=== PATIENT | female | born 1965 | race Caucasian/White ===

== ENCOUNTER 2019-12-11 14:55 | Outpatient (CLI) | payer BC, OTHER, SELFPAY ==
--- NOTE | ~2019-12-11 | XR_ITS ---
EXAMINATION:XR cervical spine min 6V DATE: 12/11/2019 15:25 INDICATION: Rheumatoid arthritis without rheumatoid factor TECHNIQUE: AP, lateral, bilateral oblique, lateral swimmers and odontoid views of the cervical spine are provided. COMPARISON: None FINDINGS: Alignment is normal. There is straightening of the cervical spine which can be positional o r due to muscular spasm. The odontoid is intact. No fracture is identified. The vertebral body height s are normal. There is mild loss of intervertebral disc space height at C5-6 and C6-7. Mild facet and uncovertebral joint osteoarthritis is noted in the mid cervical spine. Prevertebral soft tissues are normal. IMPRESSION: 1. Mild cervical spondylosis without acute findings. Reviewed, dictated and finalized at location A. RUNNER
== END 2019-12-11 14:56 | disposition home or self-care (01) ==
LOC: ANHIMG 15:04
PROVIDERS: PCP Internal Medicine; Visit Provider Internal Medicine
DX: M06.09 Rheumatoid arthritis without rheumatoid factor, multiple sites (principal); M15.9 Polyosteoarthritis, unspecified; M47.892 Other spondylosis, cervical region
CPT/HCPCS: 72052

== ENCOUNTER 2020-01-26 21:57 | Inpatient (IN) | payer BC, OTHER, SELFPAY ==
--- NOTE | ~2020-01-26 | XR_ITS ---
XR chest 2V DATE: 02/01/2020 09:47 INDICATION: Worsening chest pleuritic pain TECHNIQUE: PA and lateral views COMPARISON: 01/29/2020 portable AP chest FINDINGS: There is left lower lung predominantly left lower lobe infiltrate/atelectasis, with mild el evation of the left leaf of the diaphragm. The costophrenic angles obscured. Small pleural effusion i s not excluded. The right lung appears clear. No right pleural effusion. Heart size appears normal. There is aortic arch calcification. IMPRESSION: Infiltrate/atelectasis, left lower lung, especially lower lobe,, stable since 01/29/2020 Reviewed, dictated and finalized at location A. IMPRESSION: Infiltrate/atelectasis, left lower lung, especially lower lobe,, st able since 01/29/2020
--- NOTE | ~2020-01-26 | XR_ITS ---
EXAMINATION: XR chest 1V portable DATE: 01/29/2020 06:08 INDICATION: Cough and hypoxia. TECHNIQUE: A single frontal view of the chest was obtained. COMPARISON: Chest single view 01/26/2020, chest CT 01/27/2020 FINDINGS: There are airspace opacities at left lung base. There is a small left pleural effusion. No pneumothorax. The heart size is normal. IMPRESSION: 1. Airspace opacities at left lung base with worsening from 01/26/2020, consistent with atelectasis ve rsus pneumonia. 2. Small left pleural effusion. Reviewed, dictated and finalized at location A. IMPRESSION: 1. Airspace opacities at left lung base with worsening from 01/26/2020, consiste nt with atelectasis versus pneumonia. 2. Small left pleural effusion.
--- NOTE | ~2020-01-26 | XR_ITS ---
EXAMINATION: XR chest 1V portable DATE: 01/26/2020 22:25 INDICATION: Shortness of breath, fever and productive cough TECHNIQUE: frontal view of the chest was obtained. COMPARISON: None FINDINGS: Patchy airspace opacities in the left lower lung zone. No pleural effusion or pneumothorax. The cardi omediastinal silhouette is normal. IMPRESSION: 1. Opacities in the left lower lung zone which could represent pneumonia, asymmetric pulmonary edema or atelectasis. Reviewed, dictated and finalized at location A. IMPRESSION: 1. Opacities in the left lower lung zone which could represent pneumonia, asymm etric pulmonary edema or atelectasis.
--- NOTE | ~2020-01-26 | CT_ITS ---
EXAMINATION: CTA chest PE protocol EXAM DATE: 01/27/2020 16:48 INDICATION: Shortness of breath, cough, pneumonia. TECHNIQUE: Spiral CTA of the chest (pulmonary arteries) was performed with 100 cc Omnipaque 350 intr avenous contrast injection. Images were acquired during the pulmonary arterial phase. Coronal maxi mum intensity projection 3D-reconstructions were created by the technologist on dedicated workstation . Axial, coronal and sagittal reformatted images were reviewed. The dose-length product (DLP) for t his examination was 1006.37 mGy-cm. The exposure was tailored according to patient size (auto mA ex posure control), and iterative reconstruction (ASIR) was used as additional dose reduction technique. There is no prior study for comparison. FINDINGS: There are no pulmonary emboli in the 1st through 3rd order (central and interlobar) pulmon celina arteries. There is suboptimal pulmonary arterial opacification respiratory motion limiting evalua tion of the segmental branches. No thoracic aortic dissection. Multi segmental left lower lobe cons olidation, probably combination of atelectasis and pneumonia. There are no pleural or pericardial ef fusions. There is debris within left lower lobe intralobar and segmental bronchi. Difficult to excl ude underlying mass in the setting and follow-up exam is indicated. There is no mediastinal, hilar o r axillary lymphadenopathy. There is no pneumothorax. Heart normal in size. There is mild coron celina arterial calcification, arterial sclerosis. Incompletely imaged left renal lesion measuring flui d density. There are cholecystectomy clips. There is thoracic spondylosis without osteoblastic or os teolytic lesions identified. IMPRESSION: 1. No central pulmonary emboli. Segmental vessels not well evaluated. 2. Multisegmental left lower lobe consolidation, probably combination of atelectasis and pneumonia. Left basilar mucus plugging. One-month Follow-up CT is indicated to exclude any underlying mass. Reviewed, dictated and finalized at location A. IMPRESSION: 1. No central pulmonary emboli. Segmental vessels not well evaluated. 2. Multisegmental left lower lobe consolidation, probably combination of atele ctasis and pneumonia. Left basilar mucus plugging. One-month Follow-up CT is in dicated to exclude any underlying mass.
[2020-01-26 22:01] VITALS: BP 154/65; PULSE 106; RESP 29; TEMP 37.7; O2SAT 97
--- NOTE | 2020-01-26 22:12 | ECG_ITS ---
Measurements Intervals [place] Rate: 100 P: 41 IA: 152 QRS: 38 QRSD: 90 T: 39 QT: 329 QTc: 425 Interpretive Statements SINUS TACHYCARDIA BORDERLINE R WAVE PROGRESSION, ANTERIOR LEADS BASELINE ARTIFACT- III, AVF, V6 BORDERLINE ECG Electronically Signed On 01-27-2020 7:19:07 CDT by Jake Cassidy D.O.
--- NOTE | 2020-01-26 22:16 | ED.URI ---
HPI - URI/Sore Throat General Chief Complaint: Upper Respiratory Infection Stated Complaint: sinus infection/coughing, pulled something Time Seen by Provider: 01/26/20 22:15 Source: patient and RN notes reviewed Mode of arrival: other Limitations: no limitations History of Present Illness HPI Narrative: Pt is a 54 y/o female who presents to the ED with c/o a sinus infection that began 2 weeks ago. Pt has been prescribed 3 different abx. Pt's family states that the pt's PCP believes the pt might have pneumonia and requests a chest x-ray. Pt denies being around any sick contacts. Pt also reports coughing, left side pain with inspiration d/t coughing, wheezing, dyspnea, nausea, and vomiting, but denies fever and diarrhea. MD elicited complaint: other (sinus infection) Onset (ago): week(s) (2) Consistency: other (still present) Able to tolerate fluids by mouth: Yes Associated symptoms: cough, shortness of breath, nausea, vomiting and other (left side pain with inspiration d/t coughing, wheezing) Related Data Home Medications Medication Instructions Recorded Confirmed albuterol sulfate 90 mcg/actuation 2 inhalation INHALATION BID PRN 10/21/19 breath activated powder inhaler each azelastine 0.15 % (205.5 mcg) 1 spray NASAL BID ml 10/21/19 nasal spray cholecalciferol (vitamin D3) 4,000 4,000 unit PO DAILY 10/21/19 unit capsule cyclosporine 0.05 % eye drops 1 drop EACH EYE Q12H 10/21/19 hydrochlorothiazide 25 mg tablet 25 mg PO DAILY 10/21/19 levothyroxine 75 mcg tablet 75 mcg PO DAILY 10/21/19 losartan 50 mg tablet 50 mg PO DAILY 10/21/19 montelukast 10 mg tablet 10 mg PO DAILY 10/21/19 ranitidine HCl 150 mg tablet 150 mg PO DAILY 10/21/19 albuterol sulfate [ProAir HFA] 1 inh INHALATION QID 01/26/20 01/26/20 fluticasone propion-salmeterol INHALATION 01/26/20 [Wixela Inhub] metformin mg 01/26/20 pravastatin 01/26/20 prednisone 01/26/20 Allergies Allergy/AdvReac Type Severity Reaction Status Date / Time amitriptyline Allergy Unknown Unknown Verified 01/26/20 22:30 amoxicillin Allergy Unknown Unknown Verified 01/26/20 22:30 Sulfa (Sulfonamide Allergy Unknown Unknown Verified 01/26/20 22:30 Antibiotics) Review of Systems Review of Systems: All systems reviewed & are unremarkable except as noted in HPI and below Constitutional: Constitutional: Denies fever(s) Respiratory: Respiratory: Reports cough, Reports dyspnea and Reports wheezing Gastrointestinal: Gastrointestinal: Denies diarrhea, Reports nausea and Reports vomiting Musculoskeletal: Musculoskeletal: Reports other (left side pain with inspiration d/t coughing) PMFSH Past Medical History Medical History Generalized osteoarthritis of multiple sites Hypothyroid Neck pain without injury Rheumatoid arthritis Vitamin D deficiency Surgical History Surgical History Delivery by section H/O lateral meniscus repair of right knee H/O tubal ligation History of tonsillectomy Hx of cholecystectomy Family History Family History Father Lung cancer Thyroid cancer Carcinoma of colon Mother Brain cancer Lung cancer Colitis COPD (chronic obstructive pulmonary disease) Depression Mother Depression, Onset Age: 60 Family history of colitis, Onset Age: 60 Family history of chronic obstructive pulmonary disease, Onset Age: 60 Family history of lung cancer, Onset Age: 60 Family history of malignant neoplasm of brain, Onset Age: 60 Father Carcinoma of colon, Onset Age: 58 Family history of lung cancer, Onset Age: 58 Family history of malignant neoplasm of thyroid, Onset Age: 58 Social History Social History Smoking packs per day: 1 Smoking cigarettes per day: 20.0 Years smoked: 10 Smoking pack-
[2020-01-26 22:25] LABS: Basophils Absolute Auto 0.1 K/mm3 (0.0-0.1); Basophils Percent Auto 0.5 % (0.2-1.2); Eosinophils Percent Auto 0.2 % (0-4.4); Hematocrit 46.7 % (37.0-47.0); Hemoglobin 14.9 g/dL (12.0-15.0); Immature Granulocyte Absolute 0.08 K/mm3 (0.00-0.031); Immature Granulocyte Percent A 0.4 % (0-0.5); Lymphocytes Absolute Auto 1.57 K/mm3 (0.9-3.2); Lymphocytes Percent Auto 8.3 % (18.3-44.2); Mean Corpuscular HGB Conc 31.9 g/dl (32-36); Mean Corpuscular Hemoglobin 28.4 pg (26-34); Mean Corpuscular Volume 89.1 fl (80-100); Mean Platelet Volume 11.2 fl (7.4-10.4); Monocytes Absolute Auto 1.3 K/mm3 (0.1-0.6); Monocytes Percent Auto 7.1 % (2.6-8.5); Neutrophils Absolute Auto 15.8 K/mm3 (1.3-6.7); Neutrophils Percent Auto 83.5 % (45.5-73.1); Platelet Count Result 249 k/mm3 (150-375); Red Blood Count 5.24 M/mm3 (4.2-5.4); Red Cell Distribution Width 13.6 % (11.5-14.5); White Blood Count 18.9 K/mm3 (4.5-10.0)
[2020-01-26] MEDS: ONDANSETRON INJ 4 MG/2 ML VIAL IV PUSH (22:26)
[2020-01-26 22:37] LABS: Lactic Acid Reflex 1.6 mmol/L (0.7-2.1)
[2020-01-26 22:38] LABS: Alanine Aminotransferase 16 U/L (4-35); Albumin Level 4.4 g/dL (3.5-5.1); Alkaline Phosphatase 88 U/L (38-126); Aspartate Amino Transferase 21 U/L (14-36); Bilirubin,Total 0.7 mg/dL (0.2-1.3); Blood Urea Nitrogen 26 mg/dL (7-17); Calcium 9.4 mg/dL (8.4-10.2); Carbon Dioxide 33 mmol/L (22-30); Chloride 97 mmol/L (98-107); Estimated Glomerular Filt Rate > 60; Glucose 123 mg/dL (65-105); Lipase 155 U/L (23-300); Potassium 3.7 mmol/L (3.4-5.0); Sodium 137 mmol/L (137-145)
[2020-01-26 22:47] VITALS: BP 159/70; PULSE 104; RESP 24; O2SAT 94
[2020-01-26 22:56] LABS: Add Urine Microscopic? NO; Appearance Urine Clear (Clear); Bacteria Urine Trace /hpf; Bilirubin Urine Negative (Negative); Blood Urine Negative (Negative); Color Urine Yellow (Yellow); Glucose Urine UA Negative (Negative); Ketones Urine Negative (Negative); Leukocyte Esterase Ur Negative LEU/UL (Negative); Mucus Urine Rare /lpf; Nitrate Urine Negative (Negative); Protein Urine Negative (Negative); RBC Urine 0-2 /hpf (0-2); Specific Grav Ur 1.025 (1.001-1.035); Squamous Epithelial Cell Urine Few /hpf (Few); Urobilinogen Urine Negative mg/dL (<2.0); WBC Urine 0-3 /hpf
--- NOTE | 2020-01-26 23:22 | PC.NURSE ---
COVID 19 swab collected for IDPH testing and walked to the lab by [facility].
[2020-01-26 23:39] VITALS: BP 136/73; PULSE 102; RESP 19; O2SAT 94
[2020-01-27] VITALS (9 sets, daily range): BP systolic 96–143; BP diastolic 53–78; PULSE 80–105; RESP 18–28; TEMP 36.3–37.7; O2SAT 91–94; BMI 56.1
[2020-01-27] MEDS: METOCLOPRAMIDE HCL INJ 10 MG/2 ML VIAL IV PUSH (00:03)
--- NOTE | 2020-01-27 01:08 | ADMGEN ---
This patient, Karen Em, was admitted to 3 [facility] Surg Room 331-01. Patient/family oriented to hospital policies and general routines including ID bracelet, bed and alarms, visiting hours, pain management, procedures, bathroom and other care routines, personal items, smoking policy, room service/diet, and visiting hours. Valuables list has been completed. Information on how to activate the Rapid Response Team has been discussed. Patient/Family are encouraged to report perceived risks to care and to ask questions if they do not understand what they are told or what they should do.
[2020-01-27] MEDS: ALBUTEROL SULFATE (*SP) AEROSOL 1 PUFF 2 PUFF INHALATION ×3 (08:30→16:45)
[2020-01-27 08:56] LABS: Hemoglobin A1C 5.7 % (<5.7)
[2020-01-27] MEDS: CHOLECALCIFEROL 1,000 UNIT TABLET 4000 UNITS PO (09:00)
[2020-01-27] MEDS: PRAVASTATIN SODIUM 20 MG TABLET PO (09:01)
[2020-01-27] MEDS: LEFLUNOMIDE 20 MG TABLET PO (09:01)
[2020-01-27] MEDS: FAMOTIDINE 20 MG TABLET PO (09:01)
[2020-01-27] MEDS: HYDROXYCHLOROQUINE SULFATE 200 MG TABLET PO (09:01)
[2020-01-27] MEDS: hydroCHLOROthiazide 25 MG TABLET PO (09:01)
[2020-01-27] MEDS: LEVOTHYROXINE SODIUM 75 MCG TABLET PO (09:01)
[2020-01-27 09:21] LABS: Glucose Point of Care 117 (65-105)
[2020-01-27] MEDS: ACETAMINOPHEN 325 MG TABLET 650 MG PO ×2 (09:21→22:50)
--- NOTE | 2020-01-27 11:02 | PM.IMHP ---
H&P: HPI History of Present Illness Chief complaint: Pneumonia Narrative: Karen Em is a 54 year old female with history of morbid obesity, RA, hypothyroidism, and presumed prediabetes (A1c 5.7 this stay and takes metformin at home) who presented to the ER on evening of 01/25 from home with complaints of worsening cough and shortness of breath. She states her symptoms started with a sinus infection, cough, and shortness of breath roughly 2 weeks ago. She was placed on what she thinks is Levaquin, then Z-pack, then a medictation she was unsure of, completing these different courses without improvement. She states she is now is having left sided chest pain induced by deep inspiration and coughing; sounding pleuritic in nature. Palpating the area makes it worse. She states the Tylenol improved the pain somewhat. Her symptoms are roughly the same since presentation with little benefit from antibiotics thus far. 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 She has had no recent travel. She notes a fever last night upon presentation to the ER, but otherwise denies any recent fever/chills/sweats, muscle aches pains. She denies any previous blood clots or use of oral contraceptives. She notes n/v yesterday, but this has subsided today. Cough is green in color; non-bloody. Upon further questioning, Denies current f/c/s, rigors, myalgias/arthralgias, headaches, dizziness, lightheadedness, changes in v/h, palpitations, current n/v/d/c, abd pain, changes in BMs, dysuria, hematuria, cloudy urine, calf pain/swelling, signs symptoms of stroke. While in the ER CXR demonstrated Opacities in the left lower lung zone which could represent pneumonia, asymmetric pulmonary edema or atelectasis. She also demonstrated leukocytosis with WBC at 18.9k, RR of 29, HR of 106, temp of 99.9, BP of 123/52. Patient met sepsis with leukocytosis, tachypnea, and tachycardia with pneumonia suspected source of infection and is being admitted under this setting. Review of Systems Review of Systems: All systems reviewed & are unremarkable except as noted in HPI and below PMFSH Past Medical History Medical History (Updated 01/27/20 @ 11:48 by Jefferson Huizar PA-C) Asthma Generalized osteoarthritis of multiple sites Hypothyroid Neck pain without injury Prediabetes Rheumatoid arthritis Vitamin D deficiency Surgical History Surgical History Delivery by section H/O lateral meniscus repair of right knee H/O tubal ligation History of hysterectomy History of tonsillectomy Hx of cholecystectomy Family History Family History Father Lung cancer Thyroid cancer Carcinoma of colon Mother Brain cancer Lung cancer Colitis COPD (chronic obstructive pulmonary disease) Depression Mother Depression, Onset Age: 60 Family history of colitis, Onset Age: 60 Family history of chronic obstructive pulmonary disease, Onset Age: 60 Family history of lung cancer, Onset Age: 60 Family history of malignant neoplasm of brain, Onset Age: 60 Father Carcinoma of colon, Onset Age: 58 Family history of lung cancer, Onset Age: 58 Family history of malignant neoplasm of thyroid, Onset Age: 58 Social History Social History (Updated 01/27/20 @ 11:32 by Jefferson Huizar PA-C) Social History: Patient lives at home with her , son and daughter in law. 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 She wishes to be a [employer]. She lists her as her surrogate MDM Smoking packs per day: 1 Smoking cigarettes per day: 20.0 Years smoked: 10 Smoking pack-years: 10.00 Smoking status: Former smoker Tobacco type: cigarett
[2020-01-27] MEDS: SODIUM CHLORIDE 0.9% IV 1,000 ML 125 ML IV CONT (13:00)
[2020-01-27] MEDS: ENOXAPARIN 40 MG/0.4 ML SYRINGE SUB-Q (13:00)
[2020-01-27 13:05] LABS: Glucose Point of Care 106 (65-105)
[2020-01-27 13:23] LABS: Basophils Absolute Auto 0.1 K/mm3 (0.0-0.1); Basophils Percent Auto 0.5 % (0.2-1.2); Hemoglobin 13.6 g/dL (12.0-15.0); Immature Granulocyte Absolute 0.13 K/mm3 (0.00-0.031); Immature Granulocyte Percent A 0.5 % (0-0.5); Lymphocytes Absolute Auto 1.44 K/mm3 (0.9-3.2); Lymphocytes Percent Auto 6.1 % (18.3-44.2); Mean Corpuscular HGB Conc 31.6 g/dl (32-36); Mean Corpuscular Hemoglobin 28.3 pg (26-34); Mean Corpuscular Volume 89.4 fl (80-100); Mean Platelet Volume 10.8 fl (7.4-10.4); Monocytes Absolute Auto 1.6 K/mm3 (0.1-0.6); Monocytes Percent Auto 6.9 % (2.6-8.5); Neutrophils Absolute Auto 20.3 K/mm3 (1.3-6.7); Platelet Count Result 202 k/mm3 (150-375); Red Blood Count 4.81 M/mm3 (4.2-5.4); Red Cell Distribution Width 14.1 % (11.5-14.5); White Blood Count 23.7 K/mm3 (4.5-10.0)
[2020-01-27 13:36] LABS: Alanine Aminotransferase 18 U/L (4-35); Alkaline Phosphatase 84 U/L (38-126); Aspartate Amino Transferase 20 U/L (14-36); Bilirubin,Total 1.4 mg/dL (0.2-1.3); Blood Urea Nitrogen 21 mg/dL (7-17); Calcium 9.1 mg/dL (8.4-10.2); Carbon Dioxide 35 mmol/L (22-30); Chloride 97 mmol/L (98-107); Estimated CRCL calculation 86 ml/min; Estimated Glomerular Filt Rate > 60; Glucose 112 mg/dL (65-105); Potassium 3.2 mmol/L (3.4-5.0); Sodium 135 mmol/L (137-145)
--- NOTE | 2020-01-27 13:40 | PC.NURSE ---
Jefferson Huizar notified of repeat cbc results including elevated WBC.
[2020-01-27] MEDS: POTASSIUM CHLORIDE 20 MEQ TABLET 40 MEQ PO (22:00)
[2020-01-27] MEDS: SODIUM CHLORIDE 0.9% IV 1,000 ML 100 ML IV CONT (22:00)
[2020-01-27 22:08] LABS: Glucose Point of Care 98 (65-105)
[2020-01-27 23:56] LABS: Glucose Point of Care 110 (65-105)
[2020-01-28] VITALS (9 sets, daily range): BP systolic 112–145; BP diastolic 60–82; PULSE 77–99; RESP 18–22; TEMP 36.6–37.4; O2SAT 92–95
[2020-01-28 05:46] LABS: Basophils Absolute Auto 0.1 K/mm3 (0.0-0.1); Basophils Percent Auto 0.4 % (0.2-1.2); Eosinophils Absolute Auto 0.1 K/mm3 (0-0.3); Eosinophils Percent Auto 0.6 % (0-4.4); Hematocrit 40.5 % (37.0-47.0); Hemoglobin 12.8 g/dL (12.0-15.0); Immature Granulocyte Absolute 0.12 K/mm3 (0.00-0.031); Immature Granulocyte Percent A 0.6 % (0-0.5); Lymphocytes Absolute Auto 0.94 K/mm3 (0.9-3.2); Mean Corpuscular HGB Conc 31.6 g/dl (32-36); Mean Corpuscular Hemoglobin 28.4 pg (26-34); Mean Platelet Volume 10.8 fl (7.4-10.4); Monocytes Absolute Auto 1.3 K/mm3 (0.1-0.6); Neutrophils Absolute Auto 16.1 K/mm3 (1.3-6.7); Neutrophils Percent Auto 86.4 % (45.5-73.1); Platelet Count Result 167 k/mm3 (150-375); White Blood Count 18.6 K/mm3 (4.5-10.0)
[2020-01-28 06:17] LABS: Blood Urea Nitrogen 13 mg/dL (7-17); Calcium 8.8 mg/dL (8.4-10.2); Carbon Dioxide 30 mmol/L (22-30); Chloride 101 mmol/L (98-107); Estimated CRCL calculation 109 ml/min; Estimated Glomerular Filt Rate > 60; Glucose 114 mg/dL (65-105); Magnesium 2.2 mg/dL (1.6-2.3); Potassium 3.6 mmol/L (3.4-5.0); Sodium 133 mmol/L (137-145)
[2020-01-28] MEDS: ACETAMINOPHEN 325 MG TABLET 650 MG PO ×3 (06:50→20:55)
[2020-01-28] MEDS: LEVOTHYROXINE SODIUM 75 MCG TABLET PO (06:51)
[2020-01-28 07:22] LABS: Thyroid Stimulating Hormone Reflex 0.718 uIU/mL (0.465-4.68)
[2020-01-28] MEDS: ALBUTEROL SULFATE (*SP) AEROSOL 1 PUFF 2 PUFF INHALATION ×3 (09:05→20:38)
[2020-01-28] MEDS: ENOXAPARIN 40 MG/0.4 ML SYRINGE SUB-Q (09:11)
[2020-01-28] MEDS: SODIUM CHLORIDE 0.9% IV 1,000 ML 100 ML IV CONT (09:18)
[2020-01-28 09:27] LABS: Glucose Point of Care 116 (65-105)
[2020-01-28] MEDS: PRAVASTATIN SODIUM 20 MG TABLET PO (10:31)
[2020-01-28] MEDS: HYDROXYCHLOROQUINE SULFATE 200 MG TABLET PO (10:31)
[2020-01-28] MEDS: hydroCHLOROthiazide 25 MG TABLET PO (10:31)
[2020-01-28] MEDS: FAMOTIDINE 20 MG TABLET PO (10:32)
[2020-01-28] MEDS: CHOLECALCIFEROL 1,000 UNIT TABLET 4000 UNITS PO (10:32)
--- NOTE | 2020-01-28 13:18 | PM.IMPN ---
Progress Note: A&P Assessment and Plan (1) Pneumonia: Qualifiers: Laterality: unspecified laterality Lung location: lower lobe of lung Pneumonia type: due to unspecified organism Qualified Code(s): J18.9 - Pneumonia, unspecified organism Code(s): J18.9 - Pneumonia, unspecified organism Status: Acute Assessment and Plan: -----Possibly bacterial vs viral. Sputum culture reviewed, findings consistent with normal ghazala of the respiratory tract. Patient on 3 different antibiotic courses prior to arrival, suspicious of viral etiology. Patient tested for COVID19 and is pending so far. CTA reviewed and shows multi segmental left lower lobe consolidation and mucus plugging. Will need repeat CT in 1 month Patient started on IV azithromycin and IV rocephin from the ER; will continue this. Patient allergic to amoxicillin, although had rocephin in the ER without reaction. Monitor this closely Continue symptomatic treatment with Tylenol PRN, Mucinex Q12, PEP therapy, IVF Continue home asthma medications Avoid nebulizer treatments due to possible COVID19 (2) Sepsis: Code(s): A41.9 - Sepsis, unspecified organism Status: Acute Assessment and Plan: -----initially With leukocytosis, tachypnea, tachycardia with pneumonia as source. Tachycardia and tachypnea improved. Lactic acid within normal limits. White blood cell count improving. Will stop IV fluids at this time (3) Rheumatoid arthritis: Code(s): M06.9 - Rheumatoid arthritis, unspecified Status: Acute Assessment and Plan: No acute issues at this moment. Will hold leflunomide. Will watch Qtc (4) Hypothyroid: Code(s): E03.9 - Hypothyroidism, unspecified Status: Acute Assessment and Plan: ------TSH normal. Continue levothyroxine. (5) Prediabetes: Code(s): R73.03 - Prediabetes Status: Acute Assessment and Plan: ------A1c 5.7; on metformin at home Will hold metformin for now Accuchecks ACHS, hypoglycemia protocol, correctional insulin, diabetic diet Monitor (6) Asthma: Code(s): J45.909 - Unspecified asthma, uncomplicated Status: Acute Assessment and Plan: -------Doing okay today with no hypoxia. avoid nebulizer treatments with suspected COVID19 Time Spent With Patient Time with patient: 25 - 35 minutes Subjective Date/time seen: 01/28/20 13:18 Interval history: Pt is a 54 y/o female here for pneumonia. Patient was seen today and says she is still coughing and having a lot of sputum production. She has not had any fevers or chills since yesterday and is doing better than yesterday. She has had no shortness of breath when walking and only feels short of breath when she coughs. She does have left-sided chest pain when she coughs that is reproducible. She had a bowel movement today. She is eating and drinking okay and tolerating a diet. Review of Systems Review of Systems: All systems reviewed & are unremarkable except as noted in HPI and below Exam Narrative: Exam Narrative: General: Well developed well nourished patient resting in bed in NAD HEENT: normocephalic Neck: supple Neuro: Alert and oriented x4 CV:RRR on exam today. Resp: Significant cough and sputum production on exam. Able to speak in full sentences without conversational dyspnea. No retractions. Right lung with rhonchi. Of note, a disposable stethoscope was used which lowers sensitivity. Abd: Soft, non distended. No pain to palpation. Positive bowel sounds Extremities: No swelling, erythema, or pain to palpation. Objective Data Vital Signs Vital Signs: Vital Signs - 24 hr 01/27/20 14:00 01/27/20 16:00 01/27/20 20:00 Temperature 98.9 F 97.3 F L Pulse Rate 89 80 97 Respiratory Rate 20 22 H Blood Pressure 127/78 143/75 H Pulse Oximetry 93 91 01/28/20 00:00 01/28/20 04:00 01/28/20 06:00 Temperature 98.1 F 97.8 F Pulse Rate 8
[2020-01-28 13:35] LABS: Glucose Point of Care 88 (65-105)
[2020-01-28 17:50] LABS: Glucose Point of Care 106 (65-105)
[2020-01-28 21:16] LABS: Glucose Point of Care 111 (65-105)
[2020-01-29] VITALS (12 sets, daily range): BP systolic 109–139; BP diastolic 47–71; PULSE 64–95; RESP 16–20; TEMP 36.3–37.7; O2SAT 93–100
[2020-01-29] MEDS: ACETAMINOPHEN 325 MG TABLET 650 MG PO ×2 (02:19→08:20)
[2020-01-29 02:35] LABS: Pneumococcal Antigen Urine Not Detected (Not Detected)
[2020-01-29] MEDS: LEVOTHYROXINE SODIUM 75 MCG TABLET PO (05:44)
[2020-01-29 06:27] LABS: Albumin Level 3.5 g/dL (3.5-5.1); Bilirubin,Total 1.2 mg/dL (0.2-1.3); Carbon Dioxide 28 mmol/L (22-30); Estimated CRCL calculation 109 ml/min; Estimated Glomerular Filt Rate > 60
[2020-01-29 07:06] LABS: Alanine Aminotransferase 21 U/L (4-35); Aspartate Amino Transferase 22 U/L (14-36); Blood Urea Nitrogen 11 mg/dL (7-17); Calcium 8.7 mg/dL (8.4-10.2); Chloride 100 mmol/L (98-107); Glucose 104 mg/dL (65-105); Lactate Dehydrogenase 430 U/L (313-618); Potassium 3.3 mmol/L (3.4-5.0); Sodium 134 mmol/L (137-145)
[2020-01-29 07:37] LABS: CRP 34.1 mg/dL (<1.0)
[2020-01-29 07:59] LABS: Alkaline Phosphatase 126 U/L (38-126)
--- NOTE | 2020-01-29 08:00 | ECG_ITS ---
Measurements Intervals [place] Rate: 77 P: 8 MN: 162 QRS: 15 QRSD: 94 T: 29 QT: 384 QTc: 436 Interpretive Statements SINUS RHYTHM WITH SINUS ARRHYTHMIA BORDERLINE R WAVE PROGRESSION, ANTERIOR LEADS BORDERLINE ECG Electronically Signed On 01-29-2020 9:56:18 CDT by Jake Cassidy D.O.
[2020-01-29] MEDS: ENOXAPARIN 40 MG/0.4 ML SYRINGE SUB-Q (08:08)
[2020-01-29] MEDS: FAMOTIDINE 20 MG TABLET PO (08:08)
[2020-01-29] MEDS: CHOLECALCIFEROL 1,000 UNIT TABLET 4000 UNITS PO (08:08)
[2020-01-29] MEDS: HYDROXYCHLOROQUINE SULFATE 200 MG TABLET PO (08:09)
[2020-01-29] MEDS: hydroCHLOROthiazide 25 MG TABLET PO (08:09)
[2020-01-29] MEDS: PRAVASTATIN SODIUM 20 MG TABLET PO (08:10)
[2020-01-29 09:19] LABS: Hematocrit 39.1 % (37.0-47.0); Hemoglobin 12.2 g/dL (12.0-15.0); Mean Corpuscular HGB Conc 31.2 g/dl (32-36); Mean Corpuscular Hemoglobin 28.2 pg (26-34); Mean Corpuscular Volume 90.5 fl (80-100); Mean Platelet Volume 11.3 fl (7.4-10.4); Platelet Count Result 181 k/mm3 (150-375); Red Blood Count 4.32 M/mm3 (4.2-5.4); White Blood Count 12.1 K/mm3 (4.5-10.0)
--- NOTE | 2020-01-29 09:41 | PC.NURSE ---
Siena Gaines here to see patient, reviewed labs and am CXR results. Received notification from Rebecca Tanner that COVID 19 testing reflected negative results - new orders received and isolation dced.
[2020-01-29] MEDS: ALBUTEROL SULFATE (*SP) AEROSOL 1 PUFF 2 PUFF INHALATION ×4 (09:45→20:21)
[2020-01-29 09:48] LABS: Glucose Point of Care 94 (65-105)
--- NOTE | 2020-01-29 10:20 | PM.IMPN ---
Progress Note: A&P Assessment and Plan (1) Pneumonia: Qualifiers: Laterality: unspecified laterality Lung location: lower lobe of lung Pneumonia type: due to unspecified organism Qualified Code(s): J18.9 - Pneumonia, unspecified organism Code(s): J18.9 - Pneumonia, unspecified organism Status: Acute Assessment and Plan: -----patient's sputum culture is growing Staph aureus and her symptoms and chest x-ray seemed to be worsening. I will add vancomycin at this time and continue ceftriaxone and azithromycin. Her COVID-19 swab is negative and she has been afebrile but has been taking Tylenol pretty consistently. She is immunosuppressed which makes her severity of infection worse. Her immunosuppressants have been held but will continue Plaquenil. At this time with her pleuritic pain and her tight breath sounds, I am going to initiate Solu-Medrol. I have also added Symbicort since she is unable to take her home maintenance inhaler. Continue albuterol and Mucinex. CTA reviewed and shows multi segmental left lower lobe consolidation and mucus plugging. Will need repeat CT in 1 month (2) Sepsis: Code(s): A41.9 - Sepsis, unspecified organism Status: Acute Assessment and Plan: -----initially With leukocytosis, tachypnea, tachycardia with pneumonia as source. Tachycardia and tachypnea improved. Lactic acid within normal limits. White blood cell count improving. (3) Rheumatoid arthritis: Code(s): M06.9 - Rheumatoid arthritis, unspecified Status: Acute Assessment and Plan: -----No acute issues at this moment. Will hold leflunomide. (4) Hypothyroid: Code(s): E03.9 - Hypothyroidism, unspecified Status: Acute Assessment and Plan: ------TSH normal. Continue levothyroxine. (5) Prediabetes: Code(s): R73.03 - Prediabetes Status: Acute Assessment and Plan: ------A1c 5.7; on metformin at home Will hold metformin for now Accuchecks ACHS, hypoglycemia protocol, correctional insulin, diabetic diet Monitor (6) Asthma: Code(s): J45.909 - Unspecified asthma, uncomplicated Status: Acute Assessment and Plan: -------see above for plan. Steroids started (7) SVT (supraventricular tachycardia): Code(s): I47.1 - Supraventricular tachycardia Status: Acute Assessment and Plan: -----very short burst and asymptomatic. Likely d/t lung disease. Will monitor on tele. Electrolytes have been okay. Potassium ordered for today. Subjective Date/time seen: 01/29/20 10:20 Interval history: Pt is a 54 y/o female here for pneumonia. Patient was seen today and is not doing well. She says she has brief shortness of breath attacks that come on randomly. She said this is not associated with walking but is sometimes associated with coughing. She still has the left-sided chest pain when she coughs or breathes deeply. She is not taking very deep breaths. She says the inhalers help her but makes her cough more. She says she has pain all over when the Tylenol wears off. She denies fevers or chills at this time or in the last 24 hours. Patient had no symptoms of pain or palpitations at 2:00 a.m. with her SVT on telemetry. Exam Narrative: Exam Narrative: General: Well developed well nourished patient resting in bed in NAD HEENT: normocephalic Neck: supple Neuro: Alert and oriented x4 CV:RRR on exam today. Telemetry shows a small segment of SVT at 2:00 a.m. this morning. No other significant alarm reviews Resp: Inspiratory crackles in both lungs but does not take deep breaths. When she does take deep breaths this causes significant cough. Patient able to speak without conversational dyspnea. No retractions Abd: Soft, non distended. No pain to palpation. Positive bowel sounds Extremities: No swelling, erythema, or pain to palpation. Objective Data Vital Signs Vital Signs: V
[2020-01-29] MEDS: POTASSIUM CHLORIDE 20 MEQ TABLET 40 MEQ PO (12:28)
[2020-01-29 12:58] LABS: Glucose Point of Care 84 (65-105)
[2020-01-29] MEDS: methylPREDNISolone SOD SUCC 40 MG VIAL IV PUSH ×2 (15:16→20:36)
[2020-01-29 16:38] LABS: Legionella pneumophila Ag Ur Not Detected (Not Detected)
[2020-01-29 17:55] LABS: Glucose Point of Care 122 (65-105)
[2020-01-29 21:47] LABS: Glucose Point of Care 202 (65-105)
[2020-01-30] VITALS (7 sets, daily range): BP systolic 122–145; BP diastolic 58–73; PULSE 67–77; RESP 18–20; TEMP 36.3–36.5; O2SAT 94–95
[2020-01-30] MEDS: LEVOTHYROXINE SODIUM 75 MCG TABLET PO (05:41)
[2020-01-30] MEDS: methylPREDNISolone SOD SUCC 40 MG VIAL IV PUSH ×2 (05:41→16:56)
[2020-01-30 06:08] LABS: Hematocrit 39.4 % (37.0-47.0); Hemoglobin 12.6 g/dL (12.0-15.0); Mean Corpuscular Hemoglobin 28.1 pg (26-34); Mean Corpuscular Volume 87.9 fl (80-100); Mean Platelet Volume 10.9 fl (7.4-10.4); Platelet Count Result 224 k/mm3 (150-375); Red Blood Count 4.48 M/mm3 (4.2-5.4); Red Cell Distribution Width 13.4 % (11.5-14.5); White Blood Count 9.7 K/mm3 (4.5-10.0)
[2020-01-30 06:20] LABS: Blood Urea Nitrogen 13 mg/dL (7-17); Calcium 8.8 mg/dL (8.4-10.2); Carbon Dioxide 28 mmol/L (22-30); Chloride 99 mmol/L (98-107); Estimated CRCL calculation 125 ml/min; Estimated Glomerular Filt Rate > 60; Glucose 149 mg/dL (65-105); Magnesium 2.4 mg/dL (1.6-2.3); Phosphorus 4.4 mg/dL (2.5-4.5); Potassium 3.5 mmol/L (3.4-5.0); Sodium 136 mmol/L (137-145)
[2020-01-30] MEDS: CHOLECALCIFEROL 1,000 UNIT TABLET 4000 UNITS PO (08:15)
[2020-01-30] MEDS: hydroCHLOROthiazide 25 MG TABLET PO (08:15)
[2020-01-30] MEDS: HYDROXYCHLOROQUINE SULFATE 200 MG TABLET PO (08:15)
[2020-01-30] MEDS: ENOXAPARIN 40 MG/0.4 ML SYRINGE SUB-Q (08:15)
[2020-01-30] MEDS: PRAVASTATIN SODIUM 20 MG TABLET PO (08:15)
[2020-01-30] MEDS: FAMOTIDINE 20 MG TABLET PO (08:15)
[2020-01-30] MEDS: ALBUTEROL SULFATE (*SP) AEROSOL 1 PUFF 2 PUFF INHALATION ×5 (08:29→20:41)
[2020-01-30 09:57] LABS: Glucose Point of Care 138 (65-105)
[2020-01-30 12:16] LABS: Glucose Point of Care 119 (65-105)
[2020-01-30] MEDS: ACETAMINOPHEN 325 MG TABLET 650 MG PO (16:56)
--- NOTE | 2020-01-30 17:31 | PM.IMPN ---
Progress Note: A&P Assessment and Plan (1) Pneumonia: Qualifiers: Laterality: unspecified laterality Lung location: lower lobe of lung Pneumonia type: due to unspecified organism Qualified Code(s): J18.9 - Pneumonia, unspecified organism Code(s): J18.9 - Pneumonia, unspecified organism Status: Acute Assessment and Plan: -----patient's sputum culture is growing Staph aureus and her symptoms and chest x-ray seemed to be worsening. It is sensitive to vancomycin and penicillins. She has a penicillin allergy which causes a rash. Her symptoms and white count has improved with her ceftriaxone and vanc was added yesterday as well. Will continue with both of these medications but likely discharge on cefdinir. Her COVID-19 swab is negative and she has been afebrile but has been taking Tylenol pretty consistently. She is immunosuppressed which makes her severity of infection worse. Her immunosuppressants have been held but will continue Plaquenil. She was given IV steroids yesterday since she sounded very tight but today she is better so these will be stopped. I have also added Symbicort since she is unable to take her home maintenance inhaler. Continue albuterol and Mucinex. CTA reviewed and shows multi segmental left lower lobe consolidation and mucus plugging. Will need repeat CT in 1 month (2) Sepsis: Code(s): A41.9 - Sepsis, unspecified organism Status: Acute Assessment and Plan: -----initially With leukocytosis, tachypnea, tachycardia with pneumonia as source. Tachycardia and tachypnea improved. Lactic acid within normal limits. White blood cell count improving. (3) Rheumatoid arthritis: Code(s): M06.9 - Rheumatoid arthritis, unspecified Status: Acute Assessment and Plan: -----No acute issues at this moment. Will hold leflunomide. (4) Hypothyroid: Code(s): E03.9 - Hypothyroidism, unspecified Status: Acute Assessment and Plan: ------TSH normal. Continue levothyroxine. (5) Prediabetes: Code(s): R73.03 - Prediabetes Status: Acute Assessment and Plan: ------A1c 5.7; on metformin at home Will hold metformin for now Accuchecks ACHS, hypoglycemia protocol, correctional insulin, diabetic diet Monitor (6) Asthma: Code(s): J45.909 - Unspecified asthma, uncomplicated Status: Acute Assessment and Plan: -------see above for plan. Steroids started (7) SVT (supraventricular tachycardia): Code(s): I47.1 - Supraventricular tachycardia Status: Acute Assessment and Plan: -----very short burst and asymptomatic an with no recurrence. Likely d/t lung disease. Electrolytes are within normal limits. Subjective Date/time seen: 01/30/20 17:31 Interval history: Pt is a 54 y/o female here for pneumonia. Patient was seen today and is doing better today than she did yesterday. She says she is coughing but not as often and not getting up any sputum. She still has left-sided chest pain when she coughs but the pain medicine does help improve that. She says that her shortness of breath is better and she used to not be able to speak at all without being short of breath and now she only has dyspnea when she has long talks on the phone. She has not really been able to take big breaths but has been trying to use her spirometer. She has not had any fevers or chills today which is an improvement. She denies chest pain, nausea, vomiting, diarrhea but does admit to some constipation. Exam Narrative: Exam Narrative: General: Well developed well nourished patient resting in in the chair in no acute distress HEENT: normocephalic Neck: supple Neuro: Alert and oriented x4 CV:RRR on exam today. Telemetry shows no alarm reviews Resp: Significant cough on exam. Rhonchi/crackles in the left lung. patient able to speak without conversational dyspnea. No retractions Abd: Soft,
[2020-01-30 17:44] LABS: Glucose Point of Care 135 (65-105)
[2020-01-30 22:26] LABS: Glucose Point of Care 183 (65-105)
[2020-01-30 22:54] LABS: Vancomycin Trough 12.5 ug/mL (10.0-20.0)
[2020-01-31 05:59] LABS: Blood Urea Nitrogen 18 mg/dL (7-17); Calcium 8.6 mg/dL (8.4-10.2); Carbon Dioxide 30 mmol/L (22-30); Chloride 100 mmol/L (98-107); Estimated CRCL calculation 125 ml/min; Estimated Glomerular Filt Rate > 60; Glucose 130 mg/dL (65-105); Potassium 3.4 mmol/L (3.4-5.0); Sodium 136 mmol/L (137-145)
[2020-01-31 06:00] VITALS: BP 140/70; PULSE 62; RESP 20; TEMP 36.3; O2SAT 95
[2020-01-31 06:05] LABS: Hematocrit 38.2 % (37.0-47.0); Hemoglobin 12.4 g/dL (12.0-15.0); Mean Corpuscular HGB Conc 32.5 g/dl (32-36); Mean Corpuscular Hemoglobin 28.7 pg (26-34); Mean Corpuscular Volume 88.4 fl (80-100); Mean Platelet Volume 11.2 fl (7.4-10.4); Platelet Count Result 263 k/mm3 (150-375); Red Blood Count 4.32 M/mm3 (4.2-5.4); Red Cell Distribution Width 13.4 % (11.5-14.5); White Blood Count 12.9 K/mm3 (4.5-10.0)
[2020-01-31] MEDS: LEVOTHYROXINE SODIUM 75 MCG TABLET PO (06:07)
[2020-01-31 07:50] LABS: Glucose Point of Care 108 (65-105)
[2020-01-31] MEDS: CHOLECALCIFEROL 1,000 UNIT TABLET 4000 UNITS PO (08:39)
[2020-01-31] MEDS: PRAVASTATIN SODIUM 20 MG TABLET PO (08:40)
[2020-01-31] MEDS: HYDROXYCHLOROQUINE SULFATE 200 MG TABLET PO (08:40)
[2020-01-31] MEDS: ENOXAPARIN 40 MG/0.4 ML SYRINGE SUB-Q (08:40)
[2020-01-31] MEDS: hydroCHLOROthiazide 25 MG TABLET PO (08:40)
[2020-01-31] MEDS: FAMOTIDINE 20 MG TABLET PO (08:40)
[2020-01-31] MEDS: polyethylene glycoL 3350 17 GM POWD.PACK PO (08:41)
[2020-01-31] MEDS: ALBUTEROL SULFATE (*SP) AEROSOL 1 PUFF 2 PUFF INHALATION ×4 (09:15→20:51)
[2020-01-31] MEDS: ACETAMINOPHEN 325 MG TABLET 650 MG PO ×2 (10:20→17:01)
--- NOTE | 2020-01-31 10:54 | PM.IMPN ---
Progress Note: A&P Assessment and Plan (1) Pneumonia: Qualifiers: Laterality: unspecified laterality Lung location: lower lobe of lung Pneumonia type: due to unspecified organism Qualified Code(s): J18.9 - Pneumonia, unspecified organism Code(s): J18.9 - Pneumonia, unspecified organism Status: Acute Assessment and Plan: -----patient's sputum culture is growing Staph aureus and is currently on vancomycin, ceftriaxone and azithromycin. We will continue with this. It is sensitive to vancomycin and penicillins. She has a penicillin allergy which causes a rash. Her symptoms and white count has improved when she was on ceftriaxone so when she is ready for discharge she will likely be discharged on cefdinir. Her COVID-19 swab is negative and she has been afebrile. She is immunosuppressed which makes her severity of infection worse. Her immunosuppressants have been held but will continue Plaquenil. Her IV steroids were stopped yesterday since she is immunocompromised and was doing better. This may be why she feels a tad worse today but we will see how she does tomorrow. Continue Symbicort, albuterol and Mucinex. CTA reviewed and shows multi segmental left lower lobe consolidation and mucus plugging. Will need repeat CT in 1 month (2) Sepsis: Code(s): A41.9 - Sepsis, unspecified organism Status: Acute Assessment and Plan: -----initially With leukocytosis, tachypnea, tachycardia with pneumonia as source. Tachycardia and tachypnea improved. Lactic acid within normal limits. (3) Rheumatoid arthritis: Code(s): M06.9 - Rheumatoid arthritis, unspecified Status: Acute Assessment and Plan: -----No acute issues at this moment. Will hold leflunomide. (4) Hypothyroid: Code(s): E03.9 - Hypothyroidism, unspecified Status: Acute Assessment and Plan: ------TSH normal. Continue levothyroxine. (5) Prediabetes: Code(s): R73.03 - Prediabetes Status: Acute Assessment and Plan: ------A1c 5.7; on metformin at home Will hold metformin for now Accuchecks ACHS, hypoglycemia protocol, correctional insulin, diabetic diet Monitor (6) Asthma: Code(s): J45.909 - Unspecified asthma, uncomplicated Status: Acute Assessment and Plan: -------see above for plan. Steroids started (7) SVT (supraventricular tachycardia): Code(s): I47.1 - Supraventricular tachycardia Status: Acute Assessment and Plan: -----very short burst and asymptomatic an with no recurrence. Likely d/t lung disease. Electrolytes are within normal limits. Telemetry has been discontinued Subjective Date/time seen: 01/31/20 10:54 Interval history: Pt is a 54 y/o female here for pneumonia. Patient was seen today and states she is still doing better than admission but probably a little worse than yesterday. She says that she is coughing a lot and feels out of breath when she speaks in long sentences. She feels a little run down. She has not had a bowel movement yet but did take the MiraLax today. She denies chest pain, abdominal pain, leg swelling, nausea, vomiting, fevers or chills. She said she was very hot last night and cold this morning. Exam Narrative: Exam Narrative: General: Well developed well nourished patient resting in in the chair in no acute distress HEENT: normocephalic Neck: supple Neuro: Alert and oriented x4 CV:RRR on exam today. Resp: Significant cough on exam. Mild rhonchi and wheeze in the left lung but overall pretty good breath sounds. Able to speak in full sentences without conversational dyspnea Abd: Soft, non distended. No pain to palpation. Positive bowel sounds Extremities: No swelling, erythema, or pain to palpation. Objective Data Vital Signs Vital Signs: Vital Signs - 24 hr 01/30/20 14:00 01/30/20 20:45 01/30/20 22:00 Temperature 97.3 F L 97.3 F L Pulse
[2020-01-31 12:34] LABS: Glucose Point of Care 106 (65-105)
[2020-01-31 14:38] VITALS: BP 159/64; PULSE 97; RESP 18; TEMP 36.6; O2SAT 96
[2020-01-31 17:46] LABS: Glucose Point of Care 85 (65-105)
[2020-01-31 20:00] VITALS: PULSE 97; RESP 18; O2SAT 96
--- NOTE | 2020-01-31 21:33 | ECG_ITS ---
Measurements Intervals [place] Rate: 68 P: 24 ID: 151 QRS: 14 QRSD: 96 T: 29 QT: 422 QTc: 452 Interpretive Statements SINUS RHYTHM BORDERLINE R WAVE PROGRESSION, ANTERIOR LEADS BORDERLINE ECG Electronically Signed On 02-01-2020 8:01:03 CDT by Jake Cassidy D.O.
[2020-01-31 22:00] VITALS: BP 105/49; PULSE 72; RESP 20; TEMP 36.4; O2SAT 96
[2020-01-31 22:35] LABS: Troponin I < 0.012 ng/mL (0.000-0.034)
[2020-02-01] VITALS (12 sets, daily range): BP systolic 118–144; BP diastolic 51–67; PULSE 64–84; RESP 18–22; TEMP 36.3–36.9; O2SAT 94–98
--- NOTE | 2020-02-01 01:14 | PC.NURSE ---
notified of pt's cont'd c/o left sided chest pain. states that she will enter new orders.
[2020-02-01] MEDS: KETOROLAC 30 MG/ML VIAL (*BKC) IV PUSH ×3 (01:26→21:32)
[2020-02-01 06:03] LABS: Glucose Point of Care 117 (65-105)
[2020-02-01] MEDS: LEVOTHYROXINE SODIUM 75 MCG TABLET PO (06:22)
[2020-02-01 06:29] LABS: Hemoglobin 12.3 g/dL (12.0-15.0); Mean Corpuscular HGB Conc 31.5 g/dl (32-36); Mean Corpuscular Hemoglobin 28.2 pg (26-34); Mean Corpuscular Volume 89.4 fl (80-100); Mean Platelet Volume 10.4 fl (7.4-10.4); Platelet Count Result 211 k/mm3 (150-375); Red Blood Count 4.36 M/mm3 (4.2-5.4); Red Cell Distribution Width 13.7 % (11.5-14.5); White Blood Count 8.2 K/mm3 (4.5-10.0)
[2020-02-01 07:49] LABS: Blood Urea Nitrogen 22 mg/dL (7-17); CRP 4.9 mg/dL (<1.0); Carbon Dioxide 29 mmol/L (22-30); Chloride 99 mmol/L (98-107); Estimated CRCL calculation 109 ml/min; Estimated Glomerular Filt Rate > 60; Glucose 83 mg/dL (65-105); Potassium 3.1 mmol/L (3.4-5.0); Sodium 134 mmol/L (137-145)
[2020-02-01 08:39] LABS: Glucose Point of Care 77 (65-105)
[2020-02-01] MEDS: ALBUTEROL SULFATE (*SP) AEROSOL 1 PUFF 2 PUFF INHALATION (08:46)
[2020-02-01] MEDS: FAMOTIDINE 20 MG TABLET PO (09:07)
[2020-02-01] MEDS: HYDROXYCHLOROQUINE SULFATE 200 MG TABLET PO (09:07)
[2020-02-01] MEDS: PRAVASTATIN SODIUM 20 MG TABLET PO (09:07)
[2020-02-01] MEDS: hydroCHLOROthiazide 25 MG TABLET PO (09:07)
[2020-02-01] MEDS: ENOXAPARIN 40 MG/0.4 ML SYRINGE SUB-Q (09:07)
[2020-02-01] MEDS: CHOLECALCIFEROL 1,000 UNIT TABLET 4000 UNITS PO (09:07)
--- NOTE | 2020-02-01 10:31 | PM.IMPN ---
Progress Note: A&P Assessment and Plan (1) Pneumonia: Qualifiers: Laterality: unspecified laterality Lung location: lower lobe of lung Pneumonia type: due to unspecified organism Qualified Code(s): J18.9 - Pneumonia, unspecified organism Code(s): J18.9 - Pneumonia, unspecified organism Status: Acute Assessment and Plan: -----patient has felt worse yesterday and today. A repeat chest x-ray shows stable pneumonia. She did feel better when she was on steroids but I worry about the steroids, her immuno suppressed state, and this infection. She has no wheezing. I am going to ask pulmonology to see the patient further additional recommendations. She has been using the spirometer and a Cornet. Patient's sputum culture is growing Staph aureus and is currently on vancomycin, ceftriaxone and azithromycin. We will continue with this. It is sensitive to vancomycin and penicillins. She has a penicillin allergy which causes a rash. Her symptoms and white count has improved when she was on ceftriaxone so when she is ready for discharge she will likely be discharged on cefdinir. Her COVID-19 swab is negative and she has been afebrile. She is immunosuppressed which makes her severity of infection worse. Her immunosuppressants have been held but will continue Plaquenil. Continue Symbicort, albuterol and Mucinex. CTA reviewed and shows multi segmental left lower lobe consolidation and mucus plugging. Will need repeat CT in 1 month (2) Sepsis: Code(s): A41.9 - Sepsis, unspecified organism Status: Acute Assessment and Plan: -----initially With leukocytosis, tachypnea, tachycardia with pneumonia as source. Tachycardia and tachypnea improved. Lactic acid within normal limits. (3) Rheumatoid arthritis: Code(s): M06.9 - Rheumatoid arthritis, unspecified Status: Acute Assessment and Plan: -----No acute issues at this moment. Will hold leflunomide. (4) Hypothyroid: Code(s): E03.9 - Hypothyroidism, unspecified Status: Acute Assessment and Plan: ------TSH normal. Continue levothyroxine. (5) Prediabetes: Code(s): R73.03 - Prediabetes Status: Acute Assessment and Plan: ------A1c 5.7; on metformin at home Will hold metformin for now Accuchecks ACHS, hypoglycemia protocol, correctional insulin, diabetic diet Monitor (6) Asthma: Code(s): J45.909 - Unspecified asthma, uncomplicated Status: Acute Assessment and Plan: -------see above for plan. (7) SVT (supraventricular tachycardia): Code(s): I47.1 - Supraventricular tachycardia Status: Acute Assessment and Plan: -----very short burst and asymptomatic an with no recurrence. Likely d/t lung disease. Electrolytes are within normal limits. Telemetry normal today Subjective Date/time seen: 02/01/20 10:31 Interval history: Pt is a 54 y/o female here for pneumonia. Patient was seen today and states she is doing worsened yesterday. She has significant left-sided chest pain which is not allowing her to take deep breaths. Every time she takes a breath she has a stabbing chest pain. This is causing her not to want to cough or breathe heavily. She feels short of breath only because she is not taking deep breaths. She denies nausea, vomiting, fevers, chills, abdominal pain or leg swelling. Exam Narrative: Exam Narrative: General: Well developed well nourished patient resting in in the chair in no acute distress HEENT: normocephalic Neck: supple Neuro: Alert and oriented x4 CV:RRR on exam today. Telemetry reviewed with no significant abnormalities. pain to palpation to the left chest Resp: Shallow breaths even when prompted to take deep breaths. She did have good breath sounds from what I could hear with her shallow breaths. Patient able to speak in full sentences without conversational dyspnea Abd: Soft, non distend
[2020-02-01] MEDS: POTASSIUM CHLORIDE 20 MEQ TABLET 40 MEQ PO (12:39)
[2020-02-01 12:55] LABS: Glucose Point of Care 85 (65-105)
--- NOTE | 2020-02-01 14:25 | PM.CNPUL ---
Assessment and Plan Assessment and plan (1) Pneumonia: Qualifiers: Laterality: unspecified laterality Lung location: lower lobe of lung Pneumonia type: due to unspecified organism Qualified Code(s): J18.9 - Pneumonia, unspecified organism Code(s): J18.9 - Pneumonia, unspecified organism Status: Acute Assessment and Plan: - agree with Ceftriaxone, Azithromycin and Vancomycin for a total of 7 days - if sputum continues to be purlent and in significant volume would recommend repeating sputum culture (2) Asthma exacerbation: Code(s): J45.901 - Unspecified asthma with (acute) exacerbation Status: Acute Assessment and Plan: - ok to start prednisone 30 mg PO OD for 5 days - agree with nebulized meds, decrease albuterol dose to 2.5 mg Q6h - ipratropium 0.5 mg Neb Q6h - avoid inhaled corticosteroids for now. (3) Pleuritic chest pain: Code(s): R07.81 - Pleurodynia Status: Acute Assessment and Plan: - d/c diclofenac - start toradol 30 mg IV Q6h scheduled for 48-72 hours then reassess, narcotics will may not be very helfpul in this setting - tylenol 650 mg Q6H can also be added History of Present Illness History of Present Illness Consult date: 02/01/20 Chief complaint: Pneumonia Narrative: 54 y/o female with history of Asthma, RA who presents with left pleuritic chest pain, pneumonia after suffering with URI symptoms for few weeks as outpatient which did not respond to outpatient antibiotics. She has been here for a few days. Sputum culture grew MSSA but the patient is on Vancomycin because of PCN and Sulfa allergies. Her Influenza and SARS-CoV-2 tests were negative. She doesn't feel great improvement since admission. Her biggest complaint is left sided pleuritic chest pain. Review of Systems Review of Systems: All systems reviewed & are unremarkable except as noted in HPI and below PMFSH Past Medical History Medical History (Updated 02/01/20 @ 14:26 by Justina Campo MD) Asthma Generalized osteoarthritis of multiple sites Hypothyroid Neck pain without injury Prediabetes Rheumatoid arthritis Vitamin D deficiency Surgical History Surgical History Delivery by section H/O lateral meniscus repair of right knee H/O tubal ligation History of hysterectomy History of tonsillectomy Hx of cholecystectomy Family History Family History Father Lung cancer Thyroid cancer Carcinoma of colon Mother Brain cancer Lung cancer Colitis COPD (chronic obstructive pulmonary disease) Depression Mother Depression, Onset Age: 60 Family history of colitis, Onset Age: 60 Family history of chronic obstructive pulmonary disease, Onset Age: 60 Family history of lung cancer, Onset Age: 60 Family history of malignant neoplasm of brain, Onset Age: 60 Father Carcinoma of colon, Onset Age: 58 Family history of lung cancer, Onset Age: 58 Family history of malignant neoplasm of thyroid, Onset Age: 58 Social History Social History (Updated 01/27/20 @ 11:32 by Jefferson Huizar PA-C) Social History: Patient lives at home with her , son and daughter in law. 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 She wishes to be a [employer]. She lists her as her surrogate MDM Smoking packs per day: 1 Smoking cigarettes per day: 20.0 Years smoked: 10 Smoking pack-years: 10.00 Smoking status: Former smoker Tobacco type: cigarettes Smoking end date: 10/30/96 Alcohol intake: current Drinks per week: 1 Substance use: never Gender identity (if verbalized by the patient): Female Spiritual care concerns: Yes Agree to blood products: Yes Meds Home Medications and Allergies Home Medications Medication Instructions Recorded Confirmed Type ranitidine HCl 150 mg tablet 150 mg PO DAILY #30 table
[2020-02-01] MEDS: predniSONE 20 MG, predniSONE 10 MG 30 MG PO (15:31)
[2020-02-01 18:15] LABS: Glucose Point of Care 91 (65-105)
[2020-02-01] MEDS: ALBUTEROL SULFATE NEB 2.5 MG/0.5 ML INH INHALATION (20:02)
[2020-02-02] VITALS (14 sets, daily range): BP systolic 124–131; BP diastolic 55–61; PULSE 61–80; RESP 16–20; TEMP 36.3–36.6; O2SAT 93–98
[2020-02-02] MEDS: ALBUTEROL SULFATE NEB 2.5 MG/0.5 ML INH INHALATION ×4 (02:26→20:11)
[2020-02-02] MEDS: KETOROLAC 30 MG/ML VIAL (*BKC) IV PUSH ×4 (03:38→20:15)
[2020-02-02 03:53] LABS: Glucose Point of Care 171 (65-105)
[2020-02-02] MEDS: LEVOTHYROXINE SODIUM 75 MCG TABLET PO (05:29)
[2020-02-02 06:22] LABS: Hematocrit 39.8 % (37.0-47.0); Hemoglobin 12.6 g/dL (12.0-15.0); Mean Corpuscular HGB Conc 31.7 g/dl (32-36); Mean Corpuscular Hemoglobin 28.1 pg (26-34); Mean Corpuscular Volume 88.6 fl (80-100); Platelet Count Result 246 k/mm3 (150-375); Red Blood Count 4.49 M/mm3 (4.2-5.4); Red Cell Distribution Width 13.5 % (11.5-14.5); White Blood Count 8.2 K/mm3 (4.5-10.0)
[2020-02-02 07:20] LABS: Blood Urea Nitrogen 17 mg/dL (7-17); Calcium 8.1 mg/dL (8.4-10.2); Carbon Dioxide 29 mmol/L (22-30); Chloride 103 mmol/L (98-107); Estimated CRCL calculation 109 ml/min; Estimated Glomerular Filt Rate > 60; Glucose 112 mg/dL (65-105); Potassium 3.7 mmol/L (3.4-5.0); Sodium 137 mmol/L (137-145)
[2020-02-02] MEDS: hydroCHLOROthiazide 25 MG TABLET PO (08:58)
[2020-02-02] MEDS: HYDROXYCHLOROQUINE SULFATE 200 MG TABLET PO (08:58)
[2020-02-02] MEDS: CHOLECALCIFEROL 1,000 UNIT TABLET 4000 UNITS PO (08:58)
[2020-02-02] MEDS: FAMOTIDINE 20 MG TABLET PO (08:58)
[2020-02-02] MEDS: predniSONE 20 MG, predniSONE 10 MG 30 MG PO (08:59)
[2020-02-02] MEDS: ENOXAPARIN 40 MG/0.4 ML SYRINGE SUB-Q (09:00)
[2020-02-02] MEDS: PRAVASTATIN SODIUM 20 MG TABLET PO (09:07)
[2020-02-02 10:38] LABS: Glucose Point of Care 113 (65-105)
[2020-02-02 13:01] LABS: Glucose Point of Care 131 (65-105)
--- NOTE | 2020-02-02 13:25 | PM.PNPUL ---
Progress Note: A&P Assessment and Plan (1) Asthma exacerbation: Code(s): J45.901 - Unspecified asthma with (acute) exacerbation Status: Acute Assessment and Plan: - continue prednisone 30 mg PO OD for 5 days total - agree with nebulized meds, decrease albuterol dose to 2.5 mg Q6h - ipratropium 0.5 mg Neb Q6h - avoid inhaled corticosteroids for now, can resume in 1-2 weeks. (2) Pneumonia: Qualifiers: Laterality: unspecified laterality Lung location: lower lobe of lung Pneumonia type: due to unspecified organism Qualified Code(s): J18.9 - Pneumonia, unspecified organism Code(s): J18.9 - Pneumonia, unspecified organism Status: Acute Assessment and Plan: -improving clinically - continue Ceftriaxone, Azithromycin and Vancomycin for a total of 7 days - continue flutter valve, mobilization for sputum clearence (3) Pleuritic chest pain: Code(s): R07.81 - Pleurodynia Status: Acute Assessment and Plan: - continue toradol 30 mg IV Q6h scheduled for 48-72 hours then reassess, narcotics will may not be very helfpul in this setting - tylenol 650 mg Q6H can also be added - switch to PO Ibuprofen as needed in 1-2 days as tolerated Time Spent With Patient Time with patient: 25 - 35 minutes Subjective Date/time seen: 02/02/20 13:25 Interval history: Feeling much better today. Pleuritic pain has improved and she was able to sleep last night Review of Systems Review of Systems: All systems reviewed & are unremarkable except as noted in HPI and below Exam Const: General: uncomfortable HENMT: Mouth: Yes moist mucous membranes Eyes: General: appearance normal, both eyes and all related structures Neck: Neck: supple and no JVD Resp: Auscultation: no crackles, no rhonchi, no wheezes and diminished lung sounds Cardio: Rate: regular rate Rhythm: regular rhythm GI: GI Palp: Yes Soft to palpation Skin: General skin exam: normal color and no rashes or lesions noted Extrem: General: normal to inspection, no edema and no pedal edema Psych: Mental Status: mental status grossly normal Affect: normal affect Objective Data Vital Signs Vital Signs: Vital Signs - 24 hr 02/01/20 13:53 02/01/20 16:00 02/01/20 20:00 Temperature 36.9 C Pulse Rate 84 69 81 Respiratory Rate 20 22 H Blood Pressure 118/51 L Pulse Oximetry 95 94 02/01/20 20:03 02/01/20 20:12 02/01/20 21:48 Temperature 36.3 C L Pulse Rate 71 74 81 Respiratory Rate 20 20 22 H Blood Pressure 144/67 H Pulse Oximetry 94 02/02/20 00:00 02/02/20 02:26 02/02/20 02:38 Temperature Pulse Rate 61 70 72 Respiratory Rate 20 20 Blood Pressure Pulse Oximetry 02/02/20 04:00 02/02/20 06:00 02/02/20 08:00 Temperature 36.3 C L Pulse Rate 72 62 70 Respiratory Rate 16 Blood Pressure 125/61 Pulse Oximetry 98 02/02/20 09:00 02/02/20 09:15 Temperature Pulse Rate 70 76 Respiratory Rate 20 20 Blood Pressure Pulse Oximetry Intake/Output Intake/Output: Intake & Output 01/30/20 01/31/20 02/01/20 02/02/20 23:59 23:59 23:59 23:59 Intake Total 2780 3610 3370 890 Output Total 2300 4600 301 1663 Balance 480 2160 3220 -110 Meds/Results Medications: Active Medications Generic Name Dose Route Start Last Admin Trade Name Freq PRN Reason Stop Dose Admin Acetaminophen 650 mg 01/27/20 08:11 01/31/20 17:01 Tylenol Tablet PO 650 mg Q6H PRN Administration Pain or Fever Hydrocodone Bitart/Acetaminophen 1 tab 01/29/20 10:15 02/01/20 08:32 [place] 5-325 Mg PO 1 tab Q6H PRN Administration pain uncontrolled by tylenol Albuterol 1 puff 01/27/20 09:00 Proventil Hfa INHALATION QID ESTRELLITA Albuterol 2.5 mg 02/01/20 14:24 02/02/20 08:58 Albuterol Sulf Neb 2.5mg/0.5ml INHALATION 2.5 mg Q6HRT ESTRELLITA Administration Artificial Tears 1 drop 01/30/20 10:40 Artificial Tears EACH EYE QID PRN Dry Eye(s)
--- NOTE | 2020-02-02 14:38 | PM.IMPN ---
Progress Note: A&P Assessment and Plan (1) Pneumonia: Qualifiers: Laterality: unspecified laterality Lung location: lower lobe of lung Pneumonia type: due to unspecified organism Qualified Code(s): J18.9 - Pneumonia, unspecified organism Code(s): J18.9 - Pneumonia, unspecified organism Status: Acute Assessment and Plan: -----patient is feeling better today. Will continue steroids, spirometer, vancomycin, ceftriaxone and azithromycin. Sputum cx is growing staph aureus. Her COVID-19 swab is negative and she has been afebrile. She is immunosuppressed which makes her severity of infection worse. Her immunosuppressants have been held but will continue Plaquenil. CTA reviewed and shows multi segmental left lower lobe consolidation and mucus plugging. Will need repeat CT in 1 month (2) Sepsis: Code(s): A41.9 - Sepsis, unspecified organism Status: Acute Assessment and Plan: -----initially With leukocytosis, tachypnea, tachycardia with pneumonia as source. Tachycardia and tachypnea improved. Lactic acid within normal limits. (3) Rheumatoid arthritis: Code(s): M06.9 - Rheumatoid arthritis, unspecified Status: Acute Assessment and Plan: -----No acute issues at this moment. Will hold leflunomide. (4) Hypothyroid: Code(s): E03.9 - Hypothyroidism, unspecified Status: Acute Assessment and Plan: ------TSH normal. Continue levothyroxine. (5) Prediabetes: Code(s): R73.03 - Prediabetes Status: Acute Assessment and Plan: ------A1c 5.7; on metformin at home Will hold metformin for now Accuchecks ACHS, hypoglycemia protocol, correctional insulin, diabetic diet Monitor (6) Asthma: Code(s): J45.909 - Unspecified asthma, uncomplicated Status: Acute Assessment and Plan: -------see above for plan. (7) SVT (supraventricular tachycardia): Code(s): I47.1 - Supraventricular tachycardia Status: Acute Assessment and Plan: -----very short burst and asymptomatic an with no recurrence. Likely d/t lung disease. Electrolytes are within normal limits. Telemetry discontinued. Additional Plan Collaborating physician for this H&P is Dr. Becky VELARDE 01/27/20 at roughly 10:45 am Subjective Date/time seen: 02/02/20 14:38 Interval history: Pt is a 54 y/o female here for pneumonia. Patient was seen today and states that she is doing a lot better today. She says that she is able to take bigger breaths today without as much stabbing pain. She is still coughing but feeling better than she has been. She had a BM yesterday and is eating and drinking well. Exam Narrative: Exam Narrative: General: Well developed well nourished patient resting in in the chair in no acute distress HEENT: normocephalic Neck: supple Neuro: Alert and oriented x4 CV:RRR on exam today. Telemetry reviewed with no significant abnormalities. pain to palpation to the left chest Resp: Clear to auscultation today. Patient able to speak in full sentences without conversational dyspnea Abd: Soft, non distended. No pain to palpation. Positive bowel sounds Extremities: No swelling, erythema, or pain to palpation. Objective Data Vital Signs Vital Signs: Vital Signs - 24 hr 02/01/20 16:00 02/01/20 20:00 02/01/20 20:03 Temperature Pulse Rate 69 81 71 Respiratory Rate 22 H 20 Blood Pressure Pulse Oximetry 94 02/01/20 20:12 02/01/20 21:48 02/02/20 00:00 Temperature 97.4 F L Pulse Rate 74 81 61 Respiratory Rate 20 22 H Blood Pressure 144/67 H Pulse Oximetry 94 02/02/20 02:26 02/02/20 02:38 02/02/20 04:00 Temperature Pulse Rate 70 72 72 Respiratory Rate 20 20 Blood Pressure Pulse Oximetry 02/02/20 06:00 02/02/20 08:00 02/02/20 09:00 Temperature 97.3 F L Pulse Rate 62 70 70 Respiratory Rate 16 20 Blood Pressure 125/61 Pulse Oximetry 98 04/0
[2020-02-02 17:36] LABS: Glucose Point of Care 121 (65-105)
[2020-02-03] VITALS (12 sets, daily range): BP systolic 118–130; BP diastolic 53–69; PULSE 62–80; RESP 16–20; TEMP 36.4–36.9; O2SAT 94–97
[2020-02-03] MEDS: ALBUTEROL SULFATE NEB 2.5 MG/0.5 ML INH INHALATION ×4 (02:47→20:36)
[2020-02-03] MEDS: KETOROLAC 30 MG/ML VIAL (*BKC) IV PUSH ×4 (04:00→21:17)
[2020-02-03] MEDS: LEVOTHYROXINE SODIUM 75 MCG TABLET PO (04:58)
[2020-02-03 05:57] LABS: Estimated CRCL calculation 109 ml/min; Estimated Glomerular Filt Rate > 60
[2020-02-03 06:10] LABS: Glucose Point of Care 173 (65-105)
[2020-02-03] MEDS: ENOXAPARIN 40 MG/0.4 ML SYRINGE SUB-Q (09:10)
[2020-02-03] MEDS: polyethylene glycoL 3350 17 GM POWD.PACK PO (09:11)
[2020-02-03] MEDS: CHOLECALCIFEROL 1,000 UNIT TABLET 4000 UNITS PO (09:12)
[2020-02-03] MEDS: predniSONE 20 MG, predniSONE 10 MG 30 MG PO (09:12)
[2020-02-03] MEDS: FAMOTIDINE 20 MG TABLET PO (09:13)
[2020-02-03] MEDS: HYDROXYCHLOROQUINE SULFATE 200 MG TABLET PO (09:13)
[2020-02-03] MEDS: PRAVASTATIN SODIUM 20 MG TABLET PO (09:13)
[2020-02-03] MEDS: hydroCHLOROthiazide 25 MG TABLET PO (09:13)
--- NOTE | 2020-02-03 10:39 | PCNWS ---
Weekly nutritional screen. Patient is tolerating current diet with adequate intake. No weight loss reported. No nutritional needs at this time.
[2020-02-03 11:25] LABS: Glucose Point of Care 100 (65-105)
--- NOTE | 2020-02-03 13:20 | PM.PNPUL ---
Progress Note: A&P Assessment and Plan (1) Asthma exacerbation: Code(s): J45.901 - Unspecified asthma with (acute) exacerbation Status: Acute Assessment and Plan: - continue prednisone 30 mg PO OD for 5 days total - agree with nebulized meds, decrease albuterol dose to 2.5 mg Q6h - ipratropium 0.5 mg Neb Q6h - avoid inhaled corticosteroids for now, can resume in 1-2 weeks. (2) Pneumonia: Qualifiers: Laterality: unspecified laterality Lung location: lower lobe of lung Pneumonia type: due to unspecified organism Qualified Code(s): J18.9 - Pneumonia, unspecified organism Code(s): J18.9 - Pneumonia, unspecified organism Status: Acute Assessment and Plan: - improving clinically; watch for hemoptysis; small amount today. - I spoke with PEYTON Rodriguez. Patient may be ready for discharge tomorrow. - stop Ceftriaxone and azithromycin, one more day of Vancomycin for a total of 7 days. - continue flutter valve on setting 2 of 5 for mobilization for sputum clearance (3) Pleuritic chest pain: Code(s): R07.81 - Pleurodynia Status: Acute Assessment and Plan: - continue toradol 30 mg IV Q6h scheduled for 48-72 hours then reassess, narcotics will may not be very helfpul in this setting - tylenol 650 mg Q6H can also be added - switch to PO Ibuprofen as needed in 1-2 days as tolerated Subjective Date/time seen: 02/03/20 13:20 This 54 yo female is seen in follow up for asthma exacerbation. She has completed 7 days of azithromycin and ceftriaxone, started January 26. I stopped these today. Vancomycin - started January 28, so will stop after dose tomorrow. She is feeling tired, improving since admission. Has a small amount of light yellow sputum with small amount of blood streaked on it today. We worked with her Cornet valve, adjusted the setting to '2' out of '5' which had been on '3' setting however it was too difficult for her to use. She will use when she watches commercials on TV. She is too weak to track peak flows at this point. She has rheumatoid arthritis, on Plaquenil. January 26 CTA : multisegmental left lower lobe consolidation with eft basilar mucus plugging. One-month Follow-up CT is indicated to exclude any underlying mass. Review of Systems Review of Systems: All systems reviewed & are unremarkable except as noted in HPI and below Exam Const: General: uncomfortable HENMT: Mouth: Yes moist mucous membranes Eyes: General: appearance normal, both eyes and all related structures Neck: Neck: supple and no JVD Resp: Auscultation: no crackles, no rhonchi, no wheezes and diminished lung sounds (conrado left base. No rub. ) Cardio: Rate: regular rate Rhythm: regular rhythm Skin: General skin exam: normal color and no rashes or lesions noted Extrem: General: normal to inspection and no pedal edema Psych: Mental Status: mental status grossly normal Affect: normal affect Objective Data Vital Signs Vital Signs: Vital Signs - 24 hr 02/02/20 14:00 02/02/20 14:39 02/02/20 14:46 Temperature 36.6 C Pulse Rate 65 78 76 Respiratory Rate 16 20 20 Blood Pressure 131/55 L Pulse Oximetry 93 02/02/20 20:11 02/02/20 20:21 02/02/20 22:00 Temperature 36.6 C Pulse Rate 76 78 80 Respiratory Rate 20 20 16 Blood Pressure 124/55 L Pulse Oximetry 94 02/03/20 02:48 02/03/20 02:56 02/03/20 05:36 Temperature 36.6 C Pulse Rate 76 80 62 Respiratory Rate 20 20 20 Blood Pressure 118/68 Pulse Oximetry 97 02/03/20 08:56 02/03/20 09:05 Temperature Pulse Rate 64 76 Respiratory Rate 16 16 Blood Pressure Pulse Oximetry Intake/Output Intake/Output: Intake & Output 01/31/20 02/01/20 02/02/20 02/03/20 23:59 23:59 23:59 23:59 Intake Total 3610 3370 3550 870 Output Total 7479 965 9817 1200 Balance 2160 3220 2550 -330 Meds/Results Medications: Active Medications Generic Name Dose Route Start Last Admin Trade Name F
--- NOTE | 2020-02-03 14:36 | PM.IMPN ---
Progress Note: A&P Assessment and Plan (1) Pneumonia: Qualifiers: Laterality: unspecified laterality Lung location: lower lobe of lung Pneumonia type: due to unspecified organism Qualified Code(s): J18.9 - Pneumonia, unspecified organism Code(s): J18.9 - Pneumonia, unspecified organism Status: Acute Assessment and Plan: -----patient is feeling better today. She has completed 7 days of azithromycin and ceftriaxone and these have been discontinued. Today is day 6 of vancomycin and it was recommended to finish 7 days worth. She is on prednisone day 3 of 5 recommended by pulmonology. Continue spirometery. Sputum cx is growing staph aureus. Her COVID-19 swab is negative and she has been afebrile. She is immunosuppressed which makes her severity of infection worse. Her immunosuppressants have been held but will continue Plaquenil. CTA reviewed and shows multi segmental left lower lobe consolidation and mucus plugging. Will need repeat CT in 1 month. May discharge in 1-2 days as long as the patient is still improving. (2) Sepsis: Code(s): A41.9 - Sepsis, unspecified organism Status: Acute Assessment and Plan: -----initially With leukocytosis, tachypnea, tachycardia with pneumonia as source. Tachycardia and tachypnea improved. Lactic acid within normal limits. (3) Rheumatoid arthritis: Code(s): M06.9 - Rheumatoid arthritis, unspecified Status: Acute Assessment and Plan: -----No acute issues at this moment. Will hold leflunomide. (4) Hypothyroid: Code(s): E03.9 - Hypothyroidism, unspecified Status: Acute Assessment and Plan: ------TSH normal. Continue levothyroxine. (5) Prediabetes: Code(s): R73.03 - Prediabetes Status: Acute Assessment and Plan: ------A1c 5.7; on metformin at home Will hold metformin for now Accuchecks ACHS, hypoglycemia protocol, correctional insulin, diabetic diet Monitor (6) Asthma: Code(s): J45.909 - Unspecified asthma, uncomplicated Status: Acute Assessment and Plan: -------see above for plan. (7) SVT (supraventricular tachycardia): Code(s): I47.1 - Supraventricular tachycardia Status: Acute Assessment and Plan: -----very short burst and asymptomatic an with no recurrence. Likely d/t lung disease. Electrolytes are within normal limits. Telemetry discontinued. Subjective Date/time seen: 02/03/20 14:36 Interval history: Pt is a 54 y/o female here for pneumonia. Patient was seen today and states that she is doing well today. She is still coughing and it is turning into a dry cough. She still has pleurtic pain but it has been better than it was a few days ago at its peak. She says that she is able to take bigger breaths today without as much stabbing pain. She denies nausea, vomiting, fevers, chills, abdominal pain, or leg swelling. Exam Narrative: Exam Narrative: General: Well developed well nourished patient resting in in the chair in no acute distress HEENT: normocephalic Neck: supple Neuro: Alert and oriented x4 CV:RRR on exam today. Resp: Clear to auscultation today. Patient able to speak in full sentences without conversational dyspnea Abd: Soft, non distended. No pain to palpation. Positive bowel sounds Extremities: No swelling, erythema, or pain to palpation. Objective Data Vital Signs Vital Signs: Vital Signs - 24 hr 02/02/20 14:39 02/02/20 14:46 02/02/20 20:11 Temperature Pulse Rate 78 76 76 Respiratory Rate 20 20 20 Blood Pressure Pulse Oximetry 02/02/20 20:21 02/02/20 22:00 02/03/20 02:48 Temperature 97.9 F Pulse Rate 78 80 76 Respiratory Rate 20 16 20 Blood Pressure 124/55 L Pulse Oximetry 94 02/03/20 02:56 02/03/20 05:36 02/03/20 08:56 Temperature 98 F Pulse Rate 80 62 64 Respiratory Rate 20 20 16 Blood Pressure 118/68 Pulse Oximetry 97
[2020-02-03 16:37] LABS: Glucose Point of Care 157 (65-105)
[2020-02-03 21:12] LABS: Vancomycin Trough 18.2 ug/mL (10.0-20.0)
[2020-02-03 21:31] LABS: Glucose Point of Care 128 (65-105)
[2020-02-04] VITALS (12 sets, daily range): BP systolic 121–150; BP diastolic 60–75; PULSE 60–77; RESP 18–20; TEMP 36.6–37; O2SAT 91–96
[2020-02-04] MEDS: ALBUTEROL SULFATE NEB 2.5 MG/0.5 ML INH INHALATION ×4 (02:55→19:46)
[2020-02-04] MEDS: KETOROLAC 30 MG/ML VIAL (*BKC) IV PUSH ×3 (03:09→14:49)
[2020-02-04] MEDS: LEVOTHYROXINE SODIUM 75 MCG TABLET PO (06:12)
[2020-02-04 06:14] LABS: Mean Corpuscular HGB Conc 31.6 g/dl (32-36); Mean Corpuscular Hemoglobin 28.2 pg (26-34); Mean Corpuscular Volume 89.2 fl (80-100); Platelet Count Result 262 k/mm3 (150-375); Red Blood Count 4.26 M/mm3 (4.2-5.4); Red Cell Distribution Width 13.8 % (11.5-14.5); White Blood Count 8.2 K/mm3 (4.5-10.0)
[2020-02-04 06:22] LABS: Blood Urea Nitrogen 18 mg/dL (7-17); Calcium 8.4 mg/dL (8.4-10.2); Carbon Dioxide 29 mmol/L (22-30); Chloride 104 mmol/L (98-107); Estimated CRCL calculation 109 ml/min; Estimated Glomerular Filt Rate > 60; Glucose 110 mg/dL (65-105); Potassium 3.3 mmol/L (3.4-5.0); Sodium 137 mmol/L (137-145)
[2020-02-04] MEDS: predniSONE 20 MG, predniSONE 10 MG 30 MG PO (08:49)
[2020-02-04] MEDS: CHOLECALCIFEROL 1,000 UNIT TABLET 4000 UNITS PO (08:49)
[2020-02-04] MEDS: POTASSIUM CHLORIDE 20 MEQ TABLET PO (08:49)
[2020-02-04] MEDS: ENOXAPARIN 40 MG/0.4 ML SYRINGE SUB-Q (08:49)
[2020-02-04] MEDS: FAMOTIDINE 20 MG TABLET PO (08:50)
[2020-02-04] MEDS: HYDROXYCHLOROQUINE SULFATE 200 MG TABLET PO (08:50)
[2020-02-04] MEDS: hydroCHLOROthiazide 25 MG TABLET PO (08:50)
[2020-02-04] MEDS: PRAVASTATIN SODIUM 20 MG TABLET PO (08:51)
[2020-02-04 08:54] LABS: Glucose Point of Care 69 (65-105)
[2020-02-04 11:35] LABS: Glucose Point of Care 91 (65-105)
--- NOTE | 2020-02-04 11:42 | PM.IMPN ---
Progress Note: A&P Assessment and Plan (1) Pneumonia: Qualifiers: Laterality: unspecified laterality Lung location: lower lobe of lung Pneumonia type: due to unspecified organism Qualified Code(s): J18.9 - Pneumonia, unspecified organism Code(s): J18.9 - Pneumonia, unspecified organism Status: Acute Assessment and Plan: Improving. Completed 7 days of azithromycin and rocephin. Today is day 7 of vancomycin. Prednisone day 4 of 5 today. Continue spirometry. Sputum culture growing staph aureus. Her COVID-19 swab is negative and she has been afebrile. Final blood cultures negative. Her immunosuppressants have been held but will continue Plaquenil. CTA reviewed and shows multi segmental left lower lobe consolidation and mucus plugging. Recommend repeat CT in 1 month. Anticipate possible discharge tomorrow. (2) Sepsis: Code(s): A41.9 - Sepsis, unspecified organism Status: Acute Assessment and Plan: Evidenced by leukocytosis, tachypnea, and tachycardia. Suspected source is above. Tachycardia and tachypnea improved. Lactic acid within normal limits. (3) Rheumatoid arthritis: Code(s): M06.9 - Rheumatoid arthritis, unspecified Status: Acute Assessment and Plan: No acute issues today. Leflunomide held. (4) Hypothyroid: Code(s): E03.9 - Hypothyroidism, unspecified Status: Acute Assessment and Plan: Continue home levothyroxine. (5) Prediabetes: Code(s): R73.03 - Prediabetes Status: Acute Assessment and Plan: A1c 5.7; on metformin at home which is held today. Accuchecks ACHS, hypoglycemia protocol, correctional insulin, diabetic diet (6) Asthma: Code(s): J45.909 - Unspecified asthma, uncomplicated Status: Acute Assessment and Plan: Respiratory regimen above. (7) SVT (supraventricular tachycardia): Code(s): I47.1 - Supraventricular tachycardia Status: Acute Assessment and Plan: No further issues. Subjective Date/time seen: 02/04/20 0945 Interval history: Ms. Em is a 54yo F admitted with pneumonia. She reports feeling better today but is still feeling quite short of breath with little activity. She reports some mild right sided pleuritic chest pain worse with deep breaths and coughing. She is tolerating oral intake without nausea or vomiting. Review of Systems Review of Systems: Narrative: Twelve systems were reviewed with pertinent positives and negatives as per HPI. Exam Narrative: Exam Narrative: General: Female resting sitting up in bedside chair in no acute distress. HEENT: Normocephalic, EOMI, oral mucosa moist. Cardiovascular: Rate and rhythm are regular. Respiratory: Decreased breath sounds bilaterally. Tolerating room air. Respirations are even and nonlabored. Abdomen: Soft, protuberant, non-tender, non-distended, bowel sounds present. Extremities: Peripheral pulses intact. No edema or clubbing. Neuro: No focal neurological deficits. Speech is clear. Objective Data Vital Signs Vital Signs: Last Vital Signs Temp 97.9 F 02/04/20 14:00 Pulse 72 02/04/20 14:10 Resp 20 02/04/20 14:10 BP 129/69 02/04/20 14:00 Pulse Ox 96 02/04/20 14:00 Intake/Output Intake/Output: Intake & Output 02/01/20 02/02/20 02/03/20 02/04/20 23:59 23:59 23:59 23:59 Intake Total 3370 3550 2470 1440 Output Total 150 1000 1900 1100 Balance 3220 2550 570 340 Meds/Results Medications: Active Medications Generic Name Dose Route Start Last Admin Trade Name Freq PRN Reason Stop Dose Admin Acetaminophen 650 mg 01/27/20 08:11 01/31/20 17:01 Tylenol Tablet PO 650 mg Q6H PRN Administration Pain or Fever Hydrocodone Bitart/Acetami
--- NOTE | 2020-02-04 17:04 | PM.PNPUL ---
Progress Note: A&P Assessment and Plan (1) Asthma exacerbation: Code(s): J45.901 - Unspecified asthma with (acute) exacerbation Status: Acute Assessment and Plan: - continue prednisone 30 mg PO OD for 5 days total - agree with nebulized meds, decrease albuterol dose to 2.5 mg Q6h - ipratropium 0.5 mg Neb Q6h - avoid inhaled corticosteroids for now, can resume in 1-2 weeks. (2) Pneumonia: Qualifiers: Laterality: unspecified laterality Lung location: lower lobe of lung Pneumonia type: due to unspecified organism Qualified Code(s): J18.9 - Pneumonia, unspecified organism Code(s): J18.9 - Pneumonia, unspecified organism Status: Acute Assessment and Plan: - improving clinically; watch for hemoptysis; small amount 02/03/2020. - Patient may be ready for discharge in 1-2 days. - One more day of Vancomycin for a total of 7 days. - continue flutter valve on setting 2 of 5 for mobilization for sputum clearance - continue increasing activity (3) Pleuritic chest pain: Code(s): R07.81 - Pleurodynia Status: Acute Assessment and Plan: - stopped toradol 30 mg IV Q6h, now on oral ibuprofen and tylenol with hydrocodone. narcotics will may not be very helfpul in this setting Subjective Date/time seen: 02/04/20 17:04 Interval history: This 54 yo female is seen in follow up for asthma exacerbation. She continues to have left pleuritic chest discomfort. No mention of hemoptysis. She has completed 7 days of azithromycin and ceftriaxone, started January 26 - February 02. Vancomycin - started January 28, so will stop after dose tomorrow. Less tired, more able to walk short distances without shortness of breath. Still only able to use Cornet valve on setting '2' out of '5' without significant effort. She has rheumatoid arthritis, on Plaquenil. January 26 CTA : multisegmental left lower lobe consolidation with left basilar mucus plugging. One-month Follow-up CT is indicated to exclude any underlying mass. Review of Systems Review of Systems: All systems reviewed & are unremarkable except as noted in HPI and below Exam Const: General: uncomfortable HENMT: Mouth: Yes moist mucous membranes Eyes: General: appearance normal, both eyes and all related structures Neck: Neck: supple and no JVD Resp: Auscultation: no crackles, no rhonchi, no wheezes and diminished lung sounds (conrado left base. No rub. ) Cardio: Rate: regular rate Rhythm: regular rhythm Skin: General skin exam: normal color and no rashes or lesions noted Extrem: General: normal to inspection and no pedal edema Psych: Mental Status: mental status grossly normal Affect: normal affect Objective Data Vital Signs Vital Signs: Vital Signs - 24 hr 02/03/20 18:00 02/03/20 20:36 02/03/20 20:48 Temperature 36.9 C Pulse Rate 72 75 74 Respiratory Rate 18 18 18 Blood Pressure 125/56 L Pulse Oximetry 95 02/03/20 22:00 02/04/20 02:04 02/04/20 02:55 Temperature 36.4 C L 37.0 C Pulse Rate 80 60 62 Respiratory Rate 18 18 18 Blood Pressure 126/53 L 134/73 Pulse Oximetry 95 96 02/04/20 03:05 02/04/20 06:00 02/04/20 09:15 Temperature 36.8 C Pulse Rate 64 62 76 Respiratory Rate 18 18 18 Blood Pressure 121/60 Pulse Oximetry 91 02/04/20 09:25 02/04/20 13:59 02/04/20 14:00 Temperature 36.6 C Pulse Rate 62 72 68 Respiratory Rate 18 20 18 Blood Pressure 129/69 Pulse Oximetry 96 02/04/20 14:10 Temperature Pulse Rate 72 Respiratory Rate 20 Blood Pressure Pulse Oximetry Intake/Output Intake/Output: Intake & Output 02/01/20 02/02/20 02/03/20 02/04/20 23:59 23:59 23:59 23:59 Intake Total 3370 3550 2470 1680 Output Total 150 1000 1900 1100 Balance 3220 2550 570 580 Meds/Results Medications: Active Medications Generic Name Dose Route Start Last Admin Trade Name Freq PRN Reason Stop Dose Admin Acetaminophen 650 mg 01/27/20 08:11 01/31/20 17:01 Tyle
[2020-02-04 17:21] LABS: Glucose Point of Care 139 (65-105)
[2020-02-04] MEDS: IBUPROFEN 200 MG TABLET PO (20:42)
[2020-02-04 21:16] LABS: Glucose Point of Care 152 (65-105)
[2020-02-05] VITALS (7 sets, daily range): BP systolic 128–142; BP diastolic 59–72; PULSE 56–84; RESP 16–18; TEMP 36.6–37.2; O2SAT 95–98
[2020-02-05] MEDS: ALBUTEROL SULFATE NEB 2.5 MG/0.5 ML INH INHALATION ×2 (02:42→10:15)
[2020-02-05] MEDS: LEVOTHYROXINE SODIUM 75 MCG TABLET PO (06:04)
[2020-02-05 06:22] LABS: Blood Urea Nitrogen 17 mg/dL (7-17); Calcium 8.6 mg/dL (8.4-10.2); Carbon Dioxide 30 mmol/L (22-30); Chloride 103 mmol/L (98-107); Estimated CRCL calculation 109 ml/min; Estimated Glomerular Filt Rate > 60; Glucose 89 mg/dL (65-105); Magnesium 2.3 mg/dL (1.6-2.3); Potassium 3.6 mmol/L (3.4-5.0); Sodium 137 mmol/L (137-145)
[2020-02-05] MEDS: predniSONE 20 MG, predniSONE 10 MG 30 MG PO (08:38)
[2020-02-05] MEDS: CHOLECALCIFEROL 1,000 UNIT TABLET 4000 UNITS PO (08:38)
[2020-02-05] MEDS: ENOXAPARIN 40 MG/0.4 ML SYRINGE SUB-Q (08:39)
[2020-02-05] MEDS: HYDROXYCHLOROQUINE SULFATE 200 MG TABLET PO (08:40)
[2020-02-05] MEDS: FAMOTIDINE 20 MG TABLET PO (08:40)
[2020-02-05] MEDS: PRAVASTATIN SODIUM 20 MG TABLET PO (08:40)
[2020-02-05] MEDS: hydroCHLOROthiazide 25 MG TABLET PO (08:40)
[2020-02-05 09:01] LABS: Glucose Point of Care 75 (65-105)
--- NOTE | 2020-02-05 12:08 | PM.DS ---
DS: Diagnosis Admitting Diagnosis Admitting Diagnosis: Pneumonia, unspecified organism Discharge Diagnosis (1) Pneumonia: Qualifiers: Laterality: unspecified laterality Lung location: lower lobe of lung Pneumonia type: due to unspecified organism Qualified Code(s): J18.9 - Pneumonia, unspecified organism Code(s): J18.9 - Pneumonia, unspecified organism Status: Acute Assessment and Plan: Date of Service 02/05/20: Ms. Em is a 54yo F with asthma and rheumatoid arthritis who presented to the ED for evaluation of shortness of breath. Imaging showed multi segmental left lower lobe consolidation with mucus plugging. COVID 19 testing was negative. She was seen and evaluated by Pulmonology. Sputum culture demonstrated moderate growth of Staph aureus. She was treated for pneumonia with IV antibiotic therapy to include a 7 day course of azithromycin, vancomycin, and rocephin. She was also treated with bronchodilator therapy and prednisone, incentive spirometry. She continued to have some mild shortness of breath with walking but overall her symptoms were improved with the therapy outlined above and she was tolerating room air on day of discharge. She was hemodynamically stable for discharge 02/05/20 with instructions to follow up with PCP and pulmonology. Recommend repeat chest CT 1 month. She may also benefit from outpatient pulmonary function testing after acute illness is resolved. Consults: -- Pulmonology - Dr Woodruff and Dr Campo (2) Sepsis: Code(s): A41.9 - Sepsis, unspecified organism Status: Resolved Assessment and Plan: Resolved. Evidenced by leukocytosis, tachypnea, and tachycardia on arrival. Suspected source is above. Blood cultures negative. (3) Rheumatoid arthritis: Code(s): M06.9 - Rheumatoid arthritis, unspecified Status: Chronic Assessment and Plan: No acute issues today. Leflunomide held. (4) Hypothyroid: Code(s): E03.9 - Hypothyroidism, unspecified Status: Acute Assessment and Plan: Continue home levothyroxine. (5) Prediabetes: Code(s): R73.03 - Prediabetes Status: Chronic Assessment and Plan: A1c 5.7; metformin was held here. Blood sugars stable. Continue routine A1c monitoring by PCP. (6) Asthma: Code(s): J45.909 - Unspecified asthma, uncomplicated Status: Chronic Assessment and Plan: Respiratory regimen above. (7) SVT (supraventricular tachycardia): Code(s): I47.1 - Supraventricular tachycardia Status: Resolved Assessment and Plan: Short run of SVT was noted on telemetry. Patient was asymptomatic. Resolved with no further episodes. DS: Summary Time Spent with Patient Time attestation: Total time spent providing and/or coordinating discharge services: 40 minutes Exam Narrative: Exam Narrative: General: Female resting sitting up in bedside chair in no acute distress. HEENT: Normocephalic, EOMI, oral mucosa moist. Cardiovascular: Rate and rhythm are regular. Respiratory: Decreased breath sounds bilaterally. Tolerating room air. Respirations are even and nonlabored. Abdomen: Soft, protuberant, non-tender, non-distended, bowel sounds present. Extremities: Peripheral pulses intact. No edema or clubbing. Neuro: No focal neurological deficits. Speech is clear. DS: Data Data Completed and Pending Labs on day of discharge: Labs from last 24 hours 02/05/20 02/05/20 02/04/20 08:33 05:16 20:41 Sodium 137 Potassium 3.6 Chloride 103 Carbon Dioxide 30 BUN 17 Creatinine 0.70 Estim Creat Clear Calc 109 Estimated GFR > 60 Glucose 89 POC Capillary Glucose 75 152 H Calcium 8.6 Magnesi
[2020-02-05 12:25] LABS: Glucose Point of Care 110 (65-105)
--- NOTE | 2020-02-05 13:56 | PCRCNOTE ---
HOME NEBULIZER SET UP WITH [facility] PHONE NUMBER [phone]. NEBULIZER TO BE DELIVERED TO PT'S HOME AFTER DISCHARGE.
== END 2020-02-05 13:25 | disposition home or self-care (01) | DRG 871 ==
LOC: ANHED 22:30 → ANH3MEDSUR 01-27 00:03
PROVIDERS: Emergency Medicine; Physician Assistant; Admitting Provider Family Medicine; Emergency Provider Emergency Medicine; PCP Internal Medicine; Visit Provider Physician Assistant
DX: A41.9 Sepsis, unspecified organism (principal); J15.211 Pneumonia due to Methicillin susceptible Staphylococcus aureus; Z20.828 Contact with and (suspected) exposure to other viral communicable diseases; Z68.43 Body mass index [BMI] 50.0-59.9, adult; I47.1 Supraventricular tachycardia; J45.901 Unspecified asthma with (acute) exacerbation; M06.9 Rheumatoid arthritis, unspecified; E66.01 Morbid (severe) obesity due to excess calories; E03.9 Hypothyroidism, unspecified; R73.03 Prediabetes; M15.0 Primary generalized (osteo)arthritis; E55.9 Vitamin D deficiency, unspecified; Z90.49 Acquired absence of other specified parts of digestive tract; Z90.710 Acquired absence of both cervix and uterus; F17.210 Nicotine dependence, cigarettes, uncomplicated; R07.81 Pleurodynia
CPT/HCPCS: 36415; 71045; 71046; 71275; 80048; 80053; 80202; 81003; 82248; 82565; 83036; 83605; 83615; 83690; 83735; 84100; 84443; 84484; 85025; 85027; 86140; 87040; 87070; 87077; 87186; 87205; 87449; 87804; 87899; 93005; 94640; 94667; 94668; 96365; 96375; 99285; A9270; J0456; J0696; J1650; J1885; J2405; J2765; J2920; J3370; J7030; J7512; Q9967

== ENCOUNTER 2020-02-11 16:52 | Outpatient (CLI) | payer BC, OTHER, SELFPAY ==
--- NOTE | ~2020-02-11 | XR_ITS ---
EXAMINATION: XR chest 2V EXAM DATE: 02/11/2020 17:09 INDICATION: Pneumonia. TECHNIQUE: Frontal and lateral projections of the chest obtained and reviewed. Comparison is made to prior examination from 02/01/2020. FINDINGS: Again there is multi segmental left lower lobe consolidation, does not appear significant change compared to prior study 10 days ago. Small left pleural effusion. Right lung is clear. There i s no pneumothorax suspected. There are no osseous abnormalities identified. Cardiomediastinal silhoue tte is normal. Accounting for differences in technique, there is no significant interval change. IMPRESSION: 1. Persistent multisegmental left lower lobe consolidation, appearance most consistent with bacteria l type pneumonia and atelectasis. Difficult to exclude underlying cancer. 2. Small left pleural effusion. Reviewed, dictated and finalized at location A. IMPRESSION: 1. Persistent multisegmental left lower lobe consolidation, appearance most co nsistent with bacterial type pneumonia and atelectasis. Difficult to exclude un derlying cancer. 2. Small left pleural effusion.
== END 2020-02-11 16:53 | disposition home or self-care (01) ==
PROVIDERS: PCP Internal Medicine; Visit Provider Internal Medicine
DX: J18.9 Pneumonia, unspecified organism (principal); J90 Pleural effusion, not elsewhere classified; R91.8 Other nonspecific abnormal finding of lung field
CPT/HCPCS: 71046

== ENCOUNTER 2020-02-11 17:45 | Emergency (ER) | payer BC, OTHER, SELFPAY ==
--- NOTE | ~2020-02-11 | CT_ITS ---
EXAMINATION: CTA chest PE protocol EXAM DATE: 02/11/2020 19:38 INDICATION: Shortness of breath, cough. TECHNIQUE: Spiral CTA of the chest (pulmonary arteries) was performed with 100 cc Omnipaque 350 intr avenous contrast injection. Images were acquired during the pulmonary arterial phase. Coronal maxi mum intensity projection 3D-reconstructions were created by the technologist on dedicated workstation . Axial, coronal and sagittal reformatted images were reviewed. The dose-length product (DLP) for t his examination was 993.85 mGy-cm. The exposure was tailored according to patient size (auto mA exp osure control), and iterative reconstruction (ASIR) was used as additional dose reduction technique. Comparison is made to prior examination from 01/27/2020. FINDINGS: Pulmonary arteries are well opacified and without intraluminal filling defects. No thora cic aortic dissection. There is multi segmental left lower lobe atelectasis, with improvement in the dense consolidation, pneumonia previously seen. There is mild interval increase in size of the small to moderate left pleural effusion. Right lung is clear. There are no pleural or pericardial effusio ns. Tracheobronchial tree is patent. There is no mediastinal, hilar or axillary lymphadenopathy. There is no pneumothorax. Heart normal in size. There is mild coronary arterial calcification, arterial sclerosis. Left renal cysts. There are cholecystectomy clips. Upper abdomen is unremarkabl e. There is thoracic spondylosis without osteoblastic or osteolytic lesions identified. IMPRESSION: 1. Improvement previously seen left lower lobe multisegmental pneumonia with residual multisegmental atelectasis. 2. Small to moderate left pleural effusion with mild increase in size. 3. No pulmonary emboli. Reviewed, dictated and finalized at location A. IMPRESSION: 1. Improvement previously seen left lower lobe multisegmental pneumonia with r esidual multisegmental atelectasis. 2. Small to moderate left pleural effusion with mild increase in size. 3. No pulmonary emboli.
[2020-02-11 17:48] VITALS: BP 157/81; PULSE 86; RESP 16; TEMP 37; O2SAT 96
--- NOTE | 2020-02-11 18:31 | ED.ABDPAIN ---
HPI - Abdominal Pain General Chief Complaint: Upper Respiratory Infection <Paras Floyd PA-C - Last Filed: 02/11/20 20:17> Stated Complaint: COUGHING/SOB <AMERICO Angelo Last Filed: 02/11/20 20:17> Time Seen by Provider: 02/11/20 17:54 <AMERICO Angelo Last Filed: 02/11/20 20:17> Source: patient and old records reviewed <AMERICO Angelo Last Filed: 02/11/20 20:17> Mode of arrival: ambulatory <AMERICO Angelo Last Filed: 02/11/20 20:17> Limitations: no limitations <AMERICO Angelo Last Filed: 02/11/20 20:17> History of Present Illness HPI narrative: Patient is a 54-year-old female who returns to emergency department with continued difficulty with breathing productive cough and fatigue was seen in the hospital for pneumonia patient was discharged home currently not taking any antibiotics she was treated with IV azithromycin vancomycin and Rocephin patient has been using her inhalers at home but continues to note dyspnea. Patient notes she has had a few loose stools but denies vomiting patient denies any chest pain. <AMERICO Angelo Last Filed: 02/11/20 20:17> Related Data Home Medications: Home Medications Medication Instructions Recorded Confirmed azelastine 0.15 % (205.5 mcg) 1 spray NASAL BID ml 10/21/19 01/27/20 nasal spray cholecalciferol (vitamin D3) 100 4,000 unit PO DAILY 10/21/19 01/27/20 mcg (4,000 unit) capsule cyclosporine 0.05 % eye drops 1 drop EACH EYE Q12H 10/21/19 01/27/20 hydrochlorothiazide 25 mg tablet 25 mg PO DAILY 10/21/19 01/27/20 levothyroxine 75 mcg tablet 75 mcg PO DAILY 10/21/19 01/27/20 losartan 50 mg tablet 100 mg PO DAILY 10/21/19 01/27/20 montelukast 10 mg tablet 10 mg PO DAILY 10/21/19 01/27/20 albuterol sulfate [ProAir HFA] 1 inh INHALATION QID 01/26/20 01/26/20 fluticasone propion-salmeterol 1 puff INHALATION BID 01/26/20 01/27/20 [Wixela Inhub] metformin 1,000 mg PO DAILY 01/26/20 01/27/20 pravastatin 20 mg PO DAILY 01/26/20 01/27/20 diclofenac sodium 50 mg PO BID 01/27/20 01/27/20 hydroxychloroquine [Plaquenil] 200 mg PO DAILY 01/27/20 01/27/20 <Paras Floyd PA-C - Last Filed: 02/11/20 20:17> Allergies/Adverse Reactions: Allergies Allergy/AdvReac Type Severity Reaction Status Date / Time amitriptyline Allergy Unknown Unknown Verified 01/26/20 22:30 amoxicillin Allergy Unknown Unknown Verified 01/26/20 22:30 Sulfa (Sulfonamide Allergy Unknown Unknown Verified 01/26/20 22:30 Antibiotics) fentanyl AdvReac Nausea and Verified 01/27/20 02:27 Vomiting <Paras Floyd PA-C - Last Filed: 02/11/20 20:17> Review of Systems Review of Systems: All systems reviewed & are unremarkable except as noted in HPI and below <Paras Floyd PA-C - Last Filed: 02/11/20 20:17> [facility] Past Medical History Medical History: Medical History Asthma Generalized osteoarthritis of multiple sites Hypothyroid Neck pain without injury Prediabetes Rheumatoid arthritis Vitamin D deficiency <Paras Floyd PA-C - Last Filed: 02/11/20 20:17> Surgical History Surgical History: Surgical History Delivery by section H/O lateral meniscus repair of right knee H/O tubal ligation History of hysterectomy History of tonsillectomy Hx of cholecystectomy <Paras Floyd PA-C - Last Filed: 02/11/20 20:17> Social History Social History: Social History Social History: Patient lives at home with her , son and daughter in law. 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 She wishes to be a Full Code. She lists her as her surrogate MDM Smoking packs per day: 1 Smoking cigarettes per day: 20.0 Years smoked: 10 Smoking pack-years: 10.00 Smoking status: Former smoker Veronica
[2020-02-11 18:36] LABS: Basophils Absolute Auto 0.1 K/mm3 (0.0-0.1); Basophils Percent Auto 1.5 % (0.2-1.2); Eosinophils Absolute Auto 0.2 K/mm3 (0-0.3); Eosinophils Percent Auto 2.3 % (0-4.4); Hematocrit 42.4 % (37.0-47.0); Hemoglobin 13.2 g/dL (12.0-15.0); Immature Granulocyte Absolute 0.05 K/mm3 (0.00-0.031); Immature Granulocyte Percent A 0.5 % (0-0.5); Lymphocytes Absolute Auto 1.75 K/mm3 (0.9-3.2); Lymphocytes Percent Auto 19.1 % (18.3-44.2); Mean Corpuscular HGB Conc 31.1 g/dl (32-36); Mean Corpuscular Volume 89.8 fl (80-100); Monocytes Absolute Auto 0.9 K/mm3 (0.1-0.6); Monocytes Percent Auto 9.8 % (2.6-8.5); Neutrophils Absolute Auto 6.1 K/mm3 (1.3-6.7); Neutrophils Percent Auto 66.8 % (45.5-73.1); Platelet Count Result 254 k/mm3 (150-375); Red Blood Count 4.72 M/mm3 (4.2-5.4); Red Cell Distribution Width 13.5 % (11.5-14.5); White Blood Count 9.2 K/mm3 (4.5-10.0)
[2020-02-11 18:45] LABS: Prothrombin Time 12.7 Seconds (11.1-14.7)
[2020-02-11 18:46] LABS: Partial Thromboplastin Time 29.2 SECONDS (22.3-36.8)
[2020-02-11 18:50] VITALS: O2SAT 98
[2020-02-11 18:53] LABS: Alanine Aminotransferase 20 U/L (4-35); Albumin Level 4.1 g/dL (3.5-5.1); Alkaline Phosphatase 106 U/L (38-126); Aspartate Amino Transferase 18 U/L (14-36); Bilirubin,Total 0.7 mg/dL (0.2-1.3); Blood Urea Nitrogen 13 mg/dL (7-17); Calcium 9.9 mg/dL (8.4-10.2); Carbon Dioxide 27 mmol/L (22-30); Chloride 102 mmol/L (98-107); Estimated CRCL calculation 88 ml/min; Estimated Glomerular Filt Rate > 60; Glucose 99 mg/dL (65-105); Sodium 136 mmol/L (137-145)
[2020-02-11 18:58] LABS: Lactic Acid Reflex 1.2 mmol/L (0.7-2.1)
[2020-02-11 19:01] LABS: CRP 13.5 mg/dL (<1.0)
[2020-02-11 19:06] LABS: Alveolar/Arterial O2 Gradient 8.8 mmHg; Base Excess ABG -0.8 mEq/l (+/-2.0); Carboxyhemoglobin 0.9 % THb (0-2.0); Device ROOM AIR; Fractional Inspired Oxygen 21 %; HCO3 ABG 23.2 mEq/l (22.0-26.0); Modified Allen's Test Pass; Oxygen Content ABG 19.1 %vol (16.0-22.0); Oxygen Saturation ABG 97.5 % (95.0-100.0); Oxyhemoglobin 95.4 % THb (90.0-100.0); PCO2 ABG 36.7 mmHg (35.0-45.0); PO2 FiO2 Ratio Arterial Blood 4.62 %; Reduced Hemoglobin 3.7 %THb (0-5.0); Site Drawn LEFT RADIAL; Total Hemoglobin 14.2 g/dL (12.0-18.0); pH ABG 7.419 (7.350-7.450)
[2020-02-11] MEDS: methylPREDNISolone SOD SUCC 125 MG VIAL IV PUSH (19:06)
[2020-02-11] MEDS: DEXTROSE 5%/LACTATED RINGERS 1,000 ML 999 ML IV CONT (19:07)
[2020-02-11 19:10] LABS: Add Urine Microscopic? NO; Appearance Urine Clear (Clear); Bilirubin Urine Negative (Negative); Blood Urine Negative (Negative); Color Urine Straw (Yellow); Glucose Urine UA Negative (Negative); Ketones Urine Negative (Negative); Leukocyte Esterase Ur Negative LEU/UL (Negative); Nitrate Urine Negative (Negative); Protein Urine Negative (Negative); Specific Grav Ur 1.006 (1.001-1.035); Urobilinogen Urine Negative mg/dL (<2.0)
[2020-02-11 19:51] VITALS: BP 132/72; PULSE 77; RESP 18; O2SAT 96
--- NOTE | 2020-02-11 19:59 | PC.NURSE ---
Ambulated patient in hallway, SPO2 95-96% room air.
[2020-02-11 20:13] VITALS: BP 132/72; PULSE 77; RESP 18; TEMP 37.1; O2SAT 96
== END 2020-02-11 20:15 | disposition home or self-care (01) ==
PROVIDERS: Emergency Medicine Emergency Medical Services; Emergency Provider Emergency Medicine; PCP Internal Medicine
DX: J18.9 Pneumonia, unspecified organism (principal); J45.909 Unspecified asthma, uncomplicated; M19.90 Unspecified osteoarthritis, unspecified site; E03.9 Hypothyroidism, unspecified; M06.9 Rheumatoid arthritis, unspecified; R73.03 Prediabetes; Z79.84 Long term (current) use of oral hypoglycemic drugs; E55.9 Vitamin D deficiency, unspecified; Z87.891 Personal history of nicotine dependence
CPT/HCPCS: 36415; 36600; 71275; 80053; 81003; 82375; 82805; 83050; 83605; 85025; 85610; 85730; 86140; 87040; 96361; 96374; 99284; J2930; J7121; Q9967

== ENCOUNTER 2020-02-18 14:18 | Emergency (ER) | payer BC, OTHER, SELFPAY ==
--- NOTE | ~2020-02-18 | XR_ITS ---
EXAMINATION: XR chest 1V portable DATE: 02/18/2020 14:47 INDICATION: Shortness of breath and cough TECHNIQUE: frontal view of the chest was obtained. COMPARISON: Chest radiograph and CT dated 02/11/2020 FINDINGS: Linear bands of discoid atelectasis at the left lower lung zone. Likely persistent small left pleural effusion with gradient of hazy airspace opacity in the left lower lung zone and mild blunting at the left costophrenic angle. No new airspace opacities, pulmonary edema, pneumothorax or left pleural ef fusion. The cardiomediastinal silhouette is normal. Mild thoracic levocurvature with mild spondylosis . IMPRESSION: 1. No significant change in discoid atelectasis/scarring at the left lower lung zone with likely smal l posterior left pleural effusion. Reviewed, dictated and finalized at location A. IMPRESSION: 1. No significant change in discoid atelectasis/scarring at the left lower lung zone with likely small posterior left pleural effusion.
[2020-02-18 14:24] VITALS: BP 150/77; PULSE 99; RESP 20; TEMP 36.7; O2SAT 96
--- NOTE | 2020-02-18 14:32 | ED.GENADULT ---
HPI - General Adult General Chief complaint: Shortness of Breath/Dyspnea Stated complaint: PNEUMONIA Time Seen by Provider: 02/18/20 14:28 History of Present Illness HPI narrative: Patient is 54 y/o female complaining of SOB and cough for 3 weeks. She states that her SOB is mild but worsens with activity. She also complains of some burning chest pain. She denies any fever. Of note, she was admitted 01/26/20 for pneumonia and discharge on 02/05/20. She was re-evaluated in ED on 02/10 for SOB and discharged. Related Data Home Medications Medication Instructions Recorded Confirmed azelastine 0.15 % (205.5 mcg) 1 spray NASAL BID ml 10/21/19 01/27/20 nasal spray cholecalciferol (vitamin D3) 100 4,000 unit PO DAILY 10/21/19 01/27/20 mcg (4,000 unit) capsule cyclosporine 0.05 % eye drops 1 drop EACH EYE Q12H 10/21/19 01/27/20 hydrochlorothiazide 25 mg tablet 25 mg PO DAILY 10/21/19 01/27/20 levothyroxine 75 mcg tablet 75 mcg PO DAILY 10/21/19 01/27/20 losartan 50 mg tablet 100 mg PO DAILY 10/21/19 01/27/20 montelukast 10 mg tablet 10 mg PO DAILY 10/21/19 01/27/20 albuterol sulfate [ProAir HFA] 1 inh INHALATION QID 01/26/20 01/26/20 fluticasone propion-salmeterol 1 puff INHALATION BID 01/26/20 01/27/20 [Wixela Inhub] metformin 1,000 mg PO DAILY 01/26/20 01/27/20 pravastatin 20 mg PO DAILY 01/26/20 01/27/20 diclofenac sodium 50 mg PO BID 01/27/20 01/27/20 hydroxychloroquine [Plaquenil] 200 mg PO DAILY 01/27/20 01/27/20 Allergies Allergy/AdvReac Type Severity Reaction Status Date / Time amitriptyline Allergy Unknown Unknown Verified 01/26/20 22:30 amoxicillin Allergy Unknown Unknown Verified 01/26/20 22:30 Sulfa (Sulfonamide Allergy Unknown Unknown Verified 01/26/20 22:30 Antibiotics) fentanyl AdvReac Nausea and Verified 03/30/20 02:27 Vomiting Review of Systems Constitutional: Constitutional: Denies chills, Denies fever(s), Denies headache(s) and Denies weakness Eyes: Eyes: Denies blurry vision ENT: Denies headache(s) and Denies neck pain Cardiovascular: Cardiovascular: Reports chest pain and Denies dyspnea Respiratory: Respiratory: Reports cough and Reports dyspnea Gastrointestinal: Gastrointestinal: Denies abdominal pain, Denies diarrhea, Denies nausea and Denies vomiting Genitourinary: Genitourinary: Denies hematuria and Denies dysuria Musculoskeletal: Musculoskeletal: Denies back pain and Denies neck pain Neurologic: Denies headache(s) and Denies weakness PMFSH Past Medical History Medical History Asthma Generalized osteoarthritis of multiple sites Hypothyroid Neck pain without injury Prediabetes Rheumatoid arthritis Vitamin D deficiency Surgical History Surgical History Delivery by section H/O lateral meniscus repair of right knee H/O tubal ligation History of hysterectomy History of tonsillectomy Hx of cholecystectomy Family History Family History Father Lung cancer Thyroid cancer Carcinoma of colon Mother Brain cancer Lung cancer Colitis COPD (chronic obstructive pulmonary disease) Depression Mother Depression, Onset Age: 60 Family history of colitis, Onset Age: 60 Family history of chronic obstructive pulmonary disease, Onset Age: 60 Family history of lung cancer, Onset Age: 60 Family history of malignant neoplasm of brain, Onset Age: 60 Father Carcinoma of colon, Onset Age: 58 Family history of lung cancer, Onset Age: 58 Family history of malignant neoplasm of thyroid, Onset Age: 58 Social History Social History Social History: Patient lives at home with her , son and daughter in law. 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 She wishes to be a Full Code. She lists her as her surrogate MDM Smoking packs per day:
--- NOTE | 2020-02-18 14:34 | ECG_ITS ---
Measurements Intervals [place] Rate: 97 P: 40 MD: 148 QRS: 34 QRSD: 86 T: 23 QT: 346 QTc: 440 Interpretive Statements SINUS RHYTHM DELAYED PRECORDIAL R/S TRANSITION BORDERLINE ECG Electronically Signed On 02-18-2020 15:29:06 CDT by Jake Cassidy D.O.
[2020-02-18 14:51] LABS: Basophils Absolute Auto 0.1 K/mm3 (0.0-0.1); Basophils Percent Auto 0.8 % (0.2-1.2); Eosinophils Absolute Auto 0.3 K/mm3 (0-0.3); Eosinophils Percent Auto 2.6 % (0-4.4); Hematocrit 43.2 % (37.0-47.0); Hemoglobin 13.7 g/dL (12.0-15.0); Immature Granulocyte Absolute 0.12 K/mm3 (0.00-0.031); Immature Granulocyte Percent A 1.2 % (0-0.5); Lymphocytes Absolute Auto 2.13 K/mm3 (0.9-3.2); Lymphocytes Percent Auto 21.4 % (18.3-44.2); Mean Corpuscular HGB Conc 31.7 g/dl (32-36); Mean Corpuscular Hemoglobin 28.1 pg (26-34); Mean Corpuscular Volume 88.7 fl (80-100); Mean Platelet Volume 10.1 fl (7.4-10.4); Monocytes Absolute Auto 0.7 K/mm3 (0.1-0.6); Monocytes Percent Auto 6.7 % (2.6-8.5); Neutrophils Absolute Auto 6.7 K/mm3 (1.3-6.7); Neutrophils Percent Auto 67.3 % (45.5-73.1); Platelet Count Result 328 k/mm3 (150-375); Red Blood Count 4.87 M/mm3 (4.2-5.4); Red Cell Distribution Width 13.5 % (11.5-14.5); White Blood Count 9.9 K/mm3 (4.5-10.0)
[2020-02-18 15:05] LABS: Alanine Aminotransferase 17 U/L (4-35); Albumin Level 3.8 g/dL (3.5-5.1); Alkaline Phosphatase 88 U/L (38-126); Aspartate Amino Transferase 18 U/L (14-36); Bilirubin,Total 0.7 mg/dL (0.2-1.3); Blood Urea Nitrogen 23 mg/dL (7-17); Calcium 9.1 mg/dL (8.4-10.2); Carbon Dioxide 30 mmol/L (22-30); Chloride 100 mmol/L (98-107); Estimated CRCL calculation 85 ml/min; Estimated Glomerular Filt Rate > 60; Glucose 125 mg/dL (65-105); Potassium 3.3 mmol/L (3.4-5.0); Sodium 136 mmol/L (137-145)
[2020-02-18 15:13] LABS: NT Pro B Type Natriuretic Pept 52 PG/ML (5-100)
[2020-02-18 15:19] LABS: Troponin I < 0.012 ng/mL (0.000-0.034)
[2020-02-18] MEDS: POTASSIUM CHLORIDE 20 MEQ TABLET PO (15:52)
[2020-02-18 18:00] LABS: Troponin I < 0.012 ng/mL (0.000-0.034)
[2020-02-18 18:58] VITALS: BP 134/79; PULSE 88; RESP 20; O2SAT 96
[2020-02-19 15:09] LABS: SARS-CoV-2 RNA PCR Negative
== END 2020-02-18 19:01 | disposition home or self-care (01) ==
PROVIDERS: Emergency Provider Emergency Medicine; PCP Internal Medicine
DX: R06.02 Shortness of breath (principal); R05 Cough; Z20.828 Contact with and (suspected) exposure to other viral communicable diseases; J45.909 Unspecified asthma, uncomplicated; M19.90 Unspecified osteoarthritis, unspecified site; E03.9 Hypothyroidism, unspecified; R73.03 Prediabetes; M06.9 Rheumatoid arthritis, unspecified; E55.9 Vitamin D deficiency, unspecified; Z87.891 Personal history of nicotine dependence
CPT/HCPCS: 36415; 71045; 80053; 83880; 84484; 85025; 87040; 87635; 93005; 99284; A9270; U0003

== ENCOUNTER 2020-03-18 09:45 | Outpatient (CLI) | payer BC, OTHER, SELFPAY ==
--- NOTE | ~2020-03-18 | CT_ITS ---
EXAMINATION: CT chest wo con DATE: 03/18/2020 10:03 INDICATION: Pneumonia TECHNIQUE: Computed tomography (CT) of the chest was performed without intravenous contrast. The dose -length product (DLP) was 871.90 mGy-cm. Automated exposure control and iterative reconstruction tech nique were employed. COMPARISON: 02/11/2020, 01/27/2020 FINDINGS: There is near complete resolution of airspace opacities in the left lower lobe. Mild atelec tasis persists. There is a trace persistent left pleural effusion. A small amount of loculated fluid is seen in the major fissure. No suspicious pulmonary nodules are identified. Calcified pulmonary nod ules and calcified left hilar and mediastinal lymph nodes are consistent with old granulomatous disea se. Calcified coronary artery atherosclerosis is noted. No pathologically enlarged thoracic lymph nod es are identified. The heart size is normal. The gallbladder is surgically absent. Punctate calcifica tions in an otherwise normal spleen likely represent healed granulomatous disease. There is a partial ly imaged cyst of the left kidney upper pole. There is moderate thoracic spondylosis. IMPRESSION: 1. Near complete resolution of left lower lobe airspace opacities with minimal residual atelectasis. 2. Trace persistent left pleural effusion with small amount of loculated fluid in the major fissure. Reviewed, dictated and finalized at location A.
[2020-03-18 10:28] LABS: Hematocrit 40.5 % (37.0-47.0); Mean Corpuscular HGB Conc 32.1 g/dl (32-36); Mean Corpuscular Volume 87.3 fl (80-100); Mean Platelet Volume 10.8 fl (7.4-10.4); Platelet Count Result 233 k/mm3 (150-375); Red Blood Count 4.64 M/mm3 (4.2-5.4); Red Cell Distribution Width 13.6 % (11.5-14.5); White Blood Count 5.8 K/mm3 (4.5-10.0)
[2020-03-18 10:34] LABS: Add Urine Microscopic? NO; Appearance Urine Clear (Clear); Bilirubin Urine Negative (Negative); Blood Urine Negative (Negative); Color Urine Straw (Yellow); Glucose Urine UA Negative (Negative); Ketones Urine Negative (Negative); Leukocyte Esterase Ur Negative LEU/UL (Negative); Nitrate Urine Negative (Negative); Protein Urine Negative (Negative); Specific Grav Ur 1.006 (1.001-1.035); Urobilinogen Urine Negative mg/dL (<2.0)
[2020-03-18 10:44] LABS: Alanine Aminotransferase 18 U/L (4-35); Alkaline Phosphatase 96 U/L (38-126); Aspartate Amino Transferase 22 U/L (14-36); Bilirubin,Total 0.7 mg/dL (0.2-1.3); Blood Urea Nitrogen 11 mg/dL (7-17); CRP 2.7 mg/dL (<1.0); Calcium 9.1 mg/dL (8.4-10.2); Carbon Dioxide 31 mmol/L (22-30); Chloride 101 mmol/L (98-107); Estimated Glomerular Filt Rate > 60; Glucose 106 mg/dL (65-105); Potassium 3.3 mmol/L (3.4-5.0); Sodium 137 mmol/L (137-145)
[2020-03-18 10:47] LABS: Immunoglobulin G 537 mg/dL (700-1600)
[2020-03-22 04:30] LABS: Immunoglobulin G, Serum 563 mg/dL (600-1640); Immunoglobulin G1 285 mg/dL (382-929); Immunoglobulin G2 232 mg/dL (241-700); Immunoglobulin G3 24 mg/dL (22-178); Immunoglobulin G4 24.2 mg/dL (4.0-86.0)
== END 2020-03-18 09:46 | disposition home or self-care (01) ==
LOC: ANHIMG 09:47
PROVIDERS: PCP Internal Medicine; Visit Provider Nurse Practitioner Family
DX: J18.9 Pneumonia, unspecified organism (principal); M06.09 Rheumatoid arthritis without rheumatoid factor, multiple sites; M19.90 Unspecified osteoarthritis, unspecified site; D84.9 Immunodeficiency, unspecified; J45.909 Unspecified asthma, uncomplicated
CPT/HCPCS: 36415; 71250; 80053; 81003; 82784; 82785; 82787; 85027; 86003; 86140

== ENCOUNTER 2020-04-04 11:01 | Outpatient (CLI) | payer BC, OTHER, SELFPAY ==
--- NOTE | ~2020-04-04 | CT_ITS ---
EXAMINATION: CT sinus wo con DATE: 04/04/2020 11:45 INDICATION: Chronic sinusitis. Chronic congestion. TECHNIQUE: Computed tomography (CT) of the paranasal sinuses was performed without contrast. Iterativ e reconstruction technique was employed. Exam dose: 285.18 mGy-cm total exam DLP. COMPARISON: None FINDINGS: There is leftward bowing of the nasal septum. There is bilateral intralamellar cell of the middle nasal turbinates and mild rafaela bullosa of the l eft middle nasal turbinate. Inferior nasal turbinates are moderately prominent but symmetric in size. There are bilateral nasal antral windows. Bilateral partial ethmoidectomies. There is some focal soft tissue thickening near right and left maxillary ostium, but the infundibulum is patent bilaterally. There is minimal mucoperiosteal thickening of the right maxillary sinus. The paranasal sinuses are ot herwise clear. The left mastoid air cells are normally developed and aerated. There is opacification of a minority of the right mastoid air cells, primarily inferiorly. Middle and inner ear apparatus appear unremarkable bilaterally. IMPRESSION: Postoperative changes including bilateral nasal antral windows and partial ethmoidectomi es Bilateral interlamellar cell of middle nasal turbinate; mild rafaela bullosa of left middle nasal turb inate Minimal mucoperiosteal thickening of the right maxillary sinus. Reviewed, dictated and finalized at Location A. Reviewed, dictated and finalized at location A. IMPRESSION: Postoperative changes including bilateral nasal antral windows and partial ethmoidectomies Bilateral interlamellar cell of middle nasal turbinate; mild rafaela bullosa of left middle nasal turbinate Minimal mucoperiosteal thickening of the right maxillary sinus.
== END 2020-04-04 11:02 | disposition home or self-care (01) ==
PROVIDERS: PCP Internal Medicine; Visit Provider Otolaryngology
DX: J32.9 Chronic sinusitis, unspecified (principal)
CPT/HCPCS: 70486

== ENCOUNTER 2020-04-29 13:30 | Outpatient (CLI) | payer BC, OTHER, SELFPAY ==
[2020-04-29 13:44] LABS: Basophils Absolute Auto 0.1 K/mm3 (0.0-0.1); Basophils Percent Auto 0.7 % (0.2-1.2); Eosinophils Absolute Auto 0.1 K/mm3 (0-0.3); Eosinophils Percent Auto 0.7 % (0-4.4); Hematocrit 43.4 % (37.0-47.0); Hemoglobin 13.6 g/dL (12.0-15.0); Immature Granulocyte Absolute 0.03 K/mm3 (0.00-0.031); Immature Granulocyte Percent A 0.3 % (0-0.5); Lymphocytes Absolute Auto 1.58 K/mm3 (0.9-3.2); Lymphocytes Percent Auto 15.5 % (18.3-44.2); Mean Corpuscular HGB Conc 31.3 g/dl (32-36); Mean Corpuscular Hemoglobin 27.8 pg (26-34); Mean Corpuscular Volume 88.8 fl (80-100); Mean Platelet Volume 10.5 fl (7.4-10.4); Monocytes Absolute Auto 0.8 K/mm3 (0.1-0.6); Neutrophils Absolute Auto 7.6 K/mm3 (1.3-6.7); Neutrophils Percent Auto 74.8 % (45.5-73.1); Platelet Count Result 244 k/mm3 (150-375); Red Blood Count 4.89 M/mm3 (4.2-5.4); Red Cell Distribution Width 14.3 % (11.5-14.5); White Blood Count 10.2 K/mm3 (4.5-10.0)
[2020-04-29 15:13] LABS: Alanine Aminotransferase 17 U/L (4-35); Albumin Level 3.8 g/dL (3.5-5.1); Alkaline Phosphatase 103 U/L (38-126); Aspartate Amino Transferase 20 U/L (14-36); Bilirubin,Total 0.8 mg/dL (0.2-1.3); Blood Urea Nitrogen 15 mg/dL (7-17); Calcium 8.9 mg/dL (8.4-10.2); Carbon Dioxide 27 mmol/L (22-30); Chloride 99 mmol/L (98-107); Estimated Glomerular Filt Rate > 60; Glucose 109 mg/dL (65-105); Potassium 3.4 mmol/L (3.4-5.0); Sodium 135 mmol/L (137-145)
[2020-04-29 15:14] LABS: Immunoglobulin A 98 mg/dL (70-400); Immunoglobulin G 585 mg/dL (700-1600); Immunoglobulin M 43 mg/dL (40-230)
== END 2020-04-29 13:31 | disposition home or self-care (01) ==
PROVIDERS: PCP Internal Medicine; Visit Provider Internal Medicine Hematology & Oncology
DX: D80.9 Immunodeficiency with predominantly antibody defects, unspecified (principal)
CPT/HCPCS: 36415; 80053; 82784; 85025

== ENCOUNTER 2020-04-30 07:41 | Outpatient (CLI) | payer BC, OTHER, SELFPAY | END 2020-04-30 07:42 | disposition home or self-care (01) | LOC: ANHAUDIO 07:42 | PROVIDERS: PCP Internal Medicine; Visit Provider Otolaryngology | DX: R42 Dizziness and giddiness (principal) | CPT/HCPCS: 92537; 92540; 92546; 92557; 92567 ==

== ENCOUNTER 2020-05-05 08:31 | Outpatient (CLI) | payer BC, OTHER, SELFPAY ==
--- NOTE | 2020-05-10 11:44 | WPDPFTINT ---
PFT Interpretation PFT Interpretation: This PFT met all criteria for ATS standards and reproducibility FEV/FVC post bronchodilator 69% FEV1 70% or 1.57 liters FVC 75% or 2.27 liters TLC 92% or 4.33 liters RV 108% RV/TLC 43% DLCO 55% of predicted when adjusted for alveolar volume but not adjusted for hemoglobin Flow volume loops showed did not show an significant expiratory coving. Impression: Moderate airflow obstruction is presents with moderately decreased diffusion capacity. COPD or other obstructive diseases may present this way. Clinical correlation is advised.
--- NOTE | 2020-05-10 11:57 | WPDSIXMINUTE ---
Six Minute Walk Six Minute Walk: The patients O2 sats started at 95% and dropped as low as 92% Total walk distance 274.32 meters conclusion: This patient would not benefit from home oxygen therapy
== END 2020-05-05 08:32 | disposition home or self-care (01) ==
PROVIDERS: PCP Internal Medicine; Referring Provider Nurse Practitioner Family; Visit Provider Internal Medicine Critical Care Medicine
DX: J45.909 Unspecified asthma, uncomplicated (principal); R94.2 Abnormal results of pulmonary function studies
CPT/HCPCS: 94060; 94618; 94726; 94729

== ENCOUNTER 2020-06-02 13:41 | Outpatient (CLI) | payer BC, OTHER, SELFPAY ==
--- NOTE | ~2020-06-02 | CT_ITS ---
EXAMINATION: CT chest high resolution wo co DATE: 06/02/2020 13:59 INDICATION: Pneumonia, unspecified organism, prior smoker, shortness of breath TECHNIQUE: Computed tomography (CT) of the chest was performed without intravenous contrast. The dose -length product (DLP) was 881.47 mGy-cm. Automated exposure control and iterative reconstruction tech [employer] were employed. COMPARISON: 03/18/2020 FINDINGS: Left lower lobe airspace opacities have resolved. Rounded atelectasis of the left lower lob e has resolved. Mild subsegmental atelectasis persists. There is no pleural effusion or pneumothorax. No new airspace opacities are identified. Calcified pulmonary nodules and calcified left hilar calci fied coronary artery atherosclerosis lymph nodes are consistent with old granulomatous disease. Calci fied coronary artery atherosclerosis is noted. No pathologically enlarged thoracic lymph nodes are id entified. The heart size is normal. The gallbladder is surgically absent. Healed granulomatous diseas e of the spleen and a partially imaged left kidney upper pole cyst are again noted. There is moderate thoracic spondylosis. IMPRESSION: 1. Resolved airspace opacity and rounded atelectasis of the left lower lobe with small amount of subs egmental atelectasis. Reviewed, dictated and finalized at location A. IMPRESSION: 1. Resolved airspace opacity and rounded atelectasis of the left lower lobe wit h small amount of subsegmental atelectasis.
== END 2020-06-02 13:42 | disposition home or self-care (01) ==
PROVIDERS: Visit Provider Nurse Practitioner Family
DX: J18.9 Pneumonia, unspecified organism (principal)
CPT/HCPCS: 71250

== ENCOUNTER 2020-08-04 15:07 | Outpatient (CLI) | payer BC, OTHER, SELFPAY ==
--- NOTE | ~2020-08-04 | US_ITS ---
EXAMINATION: US thyroid EXAM DATE: 08/04/2020 15:33 INDICATION: Single nontoxic goiter. TECHNIQUE: Multiple grayscale and Doppler images of the thyroid were obtained (by a technologist who performed the scan) and subsequently reviewed. Individual nodules and recommendations may be reporte d in accordance with TI-RADS system as designated by the 2017 ACR White Paper TI-RADS committee. The re is no prior study for comparison. FINDINGS: The right thyroid lobe measures 4.5 x 1.5 x 1.4 cm, the left measured 4.0 x 1.0 x 1.4 cm. There is a 4 mm right there are lobe nodule not likely clinically significant finding. No further follow-up is i ndicated for this. IMPRESSION: Unremarkable thyroid ultrasound exam. Reviewed, dictated and finalized at location B.
== END 2020-08-04 15:08 | disposition home or self-care (01) ==
PROVIDERS: PCP Internal Medicine; Visit Provider Internal Medicine Endocrinology, Diabetes & Metabolism
DX: E04.1 Nontoxic single thyroid nodule (principal)
CPT/HCPCS: 76536

== ENCOUNTER 2020-08-12 15:39 | Outpatient (CLI) | payer BC, OTHER, SELFPAY ==
--- NOTE | ~2020-08-12 | MM_ITS ---
EXAMINATION: MM screening evelina BI w mary HISTORY: Screening TECHNIQUE: Craniocaudal and mediolateral oblique 3-D tomosynthesis images were obtained and synthetic 2-D images were generated. CAD analysis was submitted and interpreted. COMPARISON: Comparison to multiple prior studies sequentially, with oldest reviewed study dated 05/2014. BREAST PARENCHYMAL COMPOSITION: There are scattered areas of fibroglandular density. FINDINGS: There is no evidence of suspicious mass, calcification, or architectural distortion to sugg est malignancy in either breast. There has been no suspicious interval change. IMPRESSION: 1. No mammographic evidence of malignancy. 2. Recommend routine screening mammography in one year. BI-RADS Category 1: Negative Reviewed, dictated and finalized at location A.
== END 2020-08-12 15:40 | disposition home or self-care (01) ==
LOC: ANHIMG 15:42
PROVIDERS: PCP Internal Medicine; Visit Provider Internal Medicine
DX: Z12.31 Encounter for screening mammogram for malignant neoplasm of breast (principal)
CPT/HCPCS: 77063; 77067

== ENCOUNTER 2020-12-01 11:48 | Outpatient (CLI) | payer BC, OTHER, SELFPAY ==
--- NOTE | ~2020-12-01 | XR_ITS ---
EXAMINATION: XR knee RT 3V EXAM DATE: 12/01/2020 12:49 INDICATION: Rheumatoid arthritis. Multi joint pain. TECHNIQUE: Three projections of the right knee. Correlation is made to contralateral knee same date. FINDINGS: No evidence osteochondral defect or joint body in the right knee joint. There is mild to moderate medial tibiofemoral compartment primary osteoarthritis. Mild arthritis the other compartmen ts. There are no acute fractures or dislocations identified. There is no subcutaneous gas. The soft tissue is unremarkable. There are no radiopaque foreign bodies. IMPRESSION: Mild to moderate right knee osteoarthritis. Reviewed, dictated and finalized at location B. ER POT
--- NOTE | ~2020-12-01 | XR_ITS ---
EXAMINATION: XR cervical spine 4-5V EXAM DATE: 12/01/2020 12:49 INDICATION: Rheumatoid arthritis. TECHNIQUE: Cervical spine frontal, lateral, lateral swimmers, and open-mouth odontoid projections. C omparison is made to prior examination from 12/11/2019. FINDINGS: There is mild mid cervical disc disease. The vertebral bodies are aligned in the AP dimens ion. Vertebral body heights are maintained. Prevertebral soft tissue and pre-dens space are within no rmal limits. The odontoid process is intact. The lateral masses of C1 line up with C2. Mild to moder ate cervical arthropathy. IMPRESSION: 1. Mild cervical disc disease 2. Mild to moderate arthropathy. Reviewed, dictated and finalized at location B. CE AND SHAVE PRESS OPERATOR
--- NOTE | ~2020-12-01 | XR_ITS ---
EXAMINATION: XR lumbar spine min 4V EXAM DATE: 12/01/2020 12:49 INDICATION: Rheumatoid arthritis. Multi joint pain. TECHNIQUE: Lumber spine frontal, lateral, bilateral oblique projections. Coned down frontal and lat eral L5-S1 lumbar projections for interpretation. There is no prior study for comparison. FINDINGS: There is no spondylolysis. There is moderate lumbar facet arthropathy. Mild to moderate dis c disease L4-5 and L5-S1, mild at the upper lumbar levels. There are no acute fractures identified. M ild lumbar dextrocurvature. Sacrum, sacroiliac joints, sacral arcuate lines are intact. There are cho lecystectomy clips. Mild aortic arterial sclerosis. IMPRESSION: 1. Moderate lumbar arthropathy 2. Mild to moderate disc disease. Reviewed, dictated and finalized at location B. L MEAT PACKER
--- NOTE | ~2020-12-01 | XR_ITS ---
EXAMINATION: XR hand BI arthritis min 3V EXAM DATE: 12/01/2020 12:49 INDICATION: Rheumatoid arthritis. Multiple joint pain. TECHNIQUE: Right hand frontal, lateral and oblique projections obtained and reviewed. Left hand fron heron, lateral and oblique projections obtained and reviewed. Catchers projection of both hands. There is no prior study for comparison. FINDINGS: There are no bony erosions identified. There is mild bilateral polyarticular interphalange al primary osteoarthritis. There are no acute fractures or dislocations identified. There is no subc utaneous gas. The soft tissue is unremarkable. There are no radiopaque foreign bodies. IMPRESSION: Mild polyarticular interphalangeal osteoarthritis. Reviewed, dictated and finalized at location B. /SSN 2 4 OPERATOR
--- NOTE | ~2020-12-01 | XR_ITS ---
EXAMINATION: XR foot LT standing 2V EXAM DATE: 12/01/2020 12:49 INDICATION: Rheumatoid arthritis. TECHNIQUE: Frontal and lateral projections of the left foot. Correlation is made to contralateral fo ot same date. FINDINGS: Small left calcaneal spurs. There are no acute fractures or dislocations identified. Ther e is no subcutaneous gas. The soft tissue is unremarkable. There are no radiopaque foreign bodies. There are no bony erosions identified. IMPRESSION: Small left calcaneal spurs. Reviewed, dictated and finalized at location B. RANCE DIVER IMPRESSION: Small left calcaneal spurs.
--- NOTE | ~2020-12-01 | XR_ITS ---
EXAMINATION: XR foot RT standing 2V EXAM DATE: 12/01/2020 12:49 INDICATION: Rheumatoid arthritis. TECHNIQUE: Frontal and lateral projections of the right foot. There is no prior study for compariso n. FINDINGS: There are no bony erosions identified. Small amount of benign periosteal reaction along 4t h metatarsal shaft, similar appearance to contralateral side. There is mild right 1st metatarsophalan geal joint primary osteoarthritis. There are no acute fractures or dislocations identified. There is no subcutaneous gas. The soft tissue is unremarkable. There are no radiopaque foreign bodies. IMPRESSION: Mild right 1st MTP osteoarthritis. Reviewed, dictated and finalized at location B. ROL OPERATOR
--- NOTE | ~2020-12-01 | XR_ITS ---
EXAMINATION: XR knee LT 3V EXAM DATE: 12/01/2020 12:49 INDICATION: Rheumatoid arthritis. Multi joint pain. TECHNIQUE: Three projections of the left knee. There is no prior study for comparison. FINDINGS: No evidence osteochondral defect or joint body in the left knee joint. Mild to moderate l eft knee medial tibiofemoral compartment primary osteoarthritis, mild at the other compartments. No s izable joint effusion. There are no acute fractures or dislocations identified. There is no subcutan eous gas. The soft tissue is unremarkable. There are no radiopaque foreign bodies. IMPRESSION: Mild to moderate left knee osteoarthritis. Reviewed, dictated and finalized at location B. FABRICATOR
== END 2020-12-01 11:49 | disposition home or self-care (01) ==
PROVIDERS: PCP Internal Medicine; Referring Provider Orthopaedic Surgery; Visit Provider Internal Medicine
DX: M19.042 Primary osteoarthritis, left hand (principal); M19.041 Primary osteoarthritis, right hand; M19.072 Primary osteoarthritis, left ankle and foot; M19.071 Primary osteoarthritis, right ankle and foot; M47.812 Spondylosis without myelopathy or radiculopathy, cervical region; M47.817 Spondylosis without myelopathy or radiculopathy, lumbosacral region; M17.0 Bilateral primary osteoarthritis of knee
CPT/HCPCS: 72050; 72110; 73130; 73562; 73620

== ENCOUNTER 2021-01-22 16:53 | Inpatient (IN) | payer BC, OTHER, SELFPAY ==
[2021-01-22] VITALS (11 sets, daily range): BP systolic 103–126; BP diastolic 54–78; PULSE 93–107; RESP 15–21; TEMP 36.9; O2SAT 92–97
--- NOTE | ~2021-01-22 | CT_ITS ---
EXAMINATION:CT diagnostic chest wo con DATE: 02/02/2021 13:33 INDICATION: Abnormal chest radiographs. Pneumonia. TECHNIQUE: Computed tomography (CT) of the chest was performed without intravenous contrast. Automate d exposure control and iterative reconstruction technique were employed. The dose-length product (DLP ) was 820.64 mGy-cm. COMPARISON: Chest 2 views 02/02/2021, chest CT 01/25/2021 FINDINGS: There are scattered airspace and groundglass opacities throughout the lungs bilaterally wit h a peripheral predominance with interval improvement in the groundglass opacities. There are worsene d confluent airspace opacities in posterior segment right upper lobe and superior segment right lower lobe with small area of cavitation in posterior segment right upper lobe. There are worsened conflue nt airspace opacities in left lower lobe with cavitation. Calcified bilateral lung nodules and calcif ied left hilar lymph nodes are consistent with old granulomatous disease. There is a small left pleur al effusion. The heart size is normal. There are coronary artery calcifications. No pericardial effus ion. There are changes of cholecystectomy. Calcifications in the spleen are consistent with old granu lomatous disease. There is moderate thoracic spondylosis. IMPRESSION: 1. Improved patchy groundglass opacities throughout the lungs bilaterally with a peripheral predomina nce, most likely COVID-19 pneumonia. 2. Worsened necrotizing pneumonia involving posterior segment right upper lobe, superior segment righ t lower lobe, and left lower lobe. 3. Small left pleural effusion, new from 01/25/21. Reviewed, dictated and finalized at location A. IMPRESSION: 1. Improved patchy groundglass opacities throughout the lungs bilaterally with a peripheral predominance, most likely COVID-19 pneumonia. 2. Worsened necrotizing pneumonia involving posterior segment right upper lobe, superior segment right lower lobe, and left lower lobe. 3. Small left pleural effusion, new from 01/25/21.
--- NOTE | ~2021-01-22 | US_ITS ---
EXAMINATION: US venous doppler [facility] DATE: 01/23/2021 10:46 INDICATION: Shortness of breath and cough TECHNIQUE: [place]o scale images without and with compression and Doppler images of the bilateral lower e xtremity veins were obtained. COMPARISON: None FINDINGS: The right common femoral vein, profunda femoral vein, femoral vein, popliteal vein, peroneal trunk, p osterior tibial veins, and greater saphenous vein are patent. The left common femoral vein, profunda femoral vein, femoral vein, popliteal vein, peroneal trunk, po sterior tibial veins, and greater saphenous vein are patent. IMPRESSION: 1. Patent bilateral lower extremity veins. No evidence of deep venous thrombosis. Reviewed, dictated and finalized at location A. IMPRESSION: 1. Patent bilateral lower extremity veins. No evidence of deep venous thrombosi s.
--- NOTE | ~2021-01-22 | XR_ITS ---
EXAMINATION: XR chest 1V portable DATE: 02/05/2021 08:52 INDICATION: Pneumonia. TECHNIQUE: A single frontal view of the chest was obtained. COMPARISON: Chest single view 02/03/2021, chest CT 02/02/2021 FINDINGS: There are airspace opacities in all lung zones bilaterally with relative sparing of the lukas g apices, worst in right midlung zone and left lower lobe. There is a small left pleural effusion. No pneumothorax. The heart size is normal. IMPRESSION: 1. Stable diffuse lung disease, consistent with pneumonia. 2. Stable small left pleural effusion. Reviewed, dictated and finalized at location A.
--- NOTE | ~2021-01-22 | XR_ITS ---
XR chest 1V portable 01/25/2021 09:48 Indication: Hypoxia. Covid positive. Procedure: AP portable chest Comparison: Comparison to multiple prior studies sequentially, with oldest reviewed study dated 02/10. Findings: Patchy bilateral airspace disease, compatible with pneumonia. No significant pleural effusi on or pneumothorax. No acute osseous abnormality. Impression: 1: Patchy bilateral airspace disease, compatible with pneumonia. Reviewed, dictated and finalized at location B. Impression: 1: Patchy bilateral airspace disease, compatible with pneumonia.
--- NOTE | ~2021-01-22 | XR_ITS ---
EXAMINATION: XR chest 1V portable EXAM DATE: 02/03/2021 15:51 INDICATION: Post bronchoscopy. TECHNIQUE: Portable AP frontal chest x-ray was obtained. Comparison is made to prior examination from 02/02/2021. FINDINGS: There is been interval progression in extensive left mid and lower lung zone and moderate a mount of right upper lung zone predominant acute airspace disease most likely combination of atelecta sis and pneumonia. The cardiomediastinal silhouette is prominent but magnified on this AP technique. There is no pneumothorax suspected. Probable small pleural effusions. There are no osseous abnormalit ies identified. IMPRESSION: Progression of extensive atelectasis and pneumonia. Reviewed, dictated and finalized at location A.
--- NOTE | ~2021-01-22 | XR_ITS ---
EXAMINATION: XR chest 1V portable EXAM DATE: 01/22/2021 17:35 INDICATION: cough, shortness of breath and fever. History hypertension and COPD. TECHNIQUE: Portable AP frontal chest x-ray was obtained. Comparison is made to prior examination from 02/18/2020. FINDINGS: Patchy ill-defined bilateral mid and lower lung zone acute airspace disease, most likely pn eumonia. Recommend considering possibility of COVID 19 as underlying etiology. There is no pneumothor ax suspected. There are no pleural effusions. Cardiomediastinal silhouette is normal. There are no os seous abnormalities identified. IMPRESSION: Small to moderate amount of patchy bilateral ill-defined pneumonia. Possibly COVID 19. Reviewed, dictated and finalized at location A.
--- NOTE | ~2021-01-22 | XR_ITS ---
EXAMINATION: XR chest 1V portable DATE: 01/29/2021 05:36 INDICATION: Hemoptysis. COVID 19. TECHNIQUE: frontal view of the chest was obtained. COMPARISON: Chest radiograph and CT dated 01/25/21 FINDINGS: There is been some increase in the patchy airspace opacities in the bilateral mid and lower lung zone s. No pleural effusion or pneumothorax. The cardiomediastinal silhouette is normal. IMPRESSION: 1. Increase in the scattered bilateral patchy airspace opacities consistent with COVID pneumonia. Reviewed, dictated and finalized at location A. IMPRESSION: 1. Increase in the scattered bilateral patchy airspace opacities consistent wit h COVID pneumonia.
--- NOTE | ~2021-01-22 | CT_ITS ---
EXAMINATION: CTA chest PE protocol EXAM DATE: 01/25/2021 15:53 INDICATION: COVID 19. Hypoxia. TECHNIQUE: Spiral CTA of the chest (pulmonary arteries) was performed with 100 cc Omnipaque 350 intr avenous contrast injection. Images were acquired during the pulmonary arterial phase. Coronal maxi mum intensity projection 3D-reconstructions were created by the technologist on dedicated workstation . Axial, coronal and sagittal reformatted images were reviewed. The dose-length product (DLP) for t his examination was 1012.64 mGy-cm. The exposure was tailored according to patient size (auto mA ex posure control), and iterative reconstruction (ASIR) was used as additional dose reduction technique. Comparison is made to prior examination from 06/02/2020. FINDINGS: There are no pulmonary emboli in the 1st through 3rd order (central and interlobar) pulmon celina arteries. Some loss of attenuation in the segmental pulmonary arteries due to respiratory motion , but no intraluminal filling defects suspected. No thoracic aortic dissection. There is moderate amount of bilateral patchy peripheral groundglass airspace disease. Is a larger, se gmental region of solid consolidation within each lower lobe. Appearance is consistent with COVID pne umonia. There are no pleural or pericardial effusions. Tracheobronchial tree is patent. There is no mediastinal, hilar or axillary lymphadenopathy. There is no pneumothorax. Heart normal in siz e. There is mild coronary arterial calcification, arterial sclerosis. Incompletely imaged left oxana al fluid density lesion at 5 cm, likely cyst. There are cholecystectomy clips. There is thoracic spondylosis without osteoblastic or osteolytic l esions identified. IMPRESSION: 1. Limited segmental evaluation, but no pulmonary emboli are suspected. 2. Moderate amount of bilateral airspace disease consistent with COVID pneumonia. Reviewed, dictated and finalized at location A. IMPRESSION: 1. Limited segmental evaluation, but no pulmonary emboli are suspected. 2. Moderate amount of bilateral airspace disease consistent with COVID pneumon ia.
--- NOTE | ~2021-01-22 | XR_ITS ---
EXAMINATION: XR chest 1V portable EXAM DATE: 02/07/2021 10:58 INDICATION: PICC line placement. TECHNIQUE: Portable AP frontal chest x-ray was obtained. Comparison is made to prior examination from 02/05/2021. FINDINGS: There is a right-sided PICC line, tip projecting over the cavoatrial junction, expected loc ation. Again there is moderate amount of patchy bilateral acute airspace disease, appearance most con sistent with pneumonia. Small to moderate left pleural effusion. No pneumothorax. The cardiomediastin al silhouette is prominent but magnified on this AP technique. Accounting for differences in techniqu e, there is no significant interval change. IMPRESSION: 1. PICC line in position. 2. Moderate amount of bilateral pneumonia. 3. Small to moderate left pleural effusion. Reviewed, dictated and finalized at location A.
--- NOTE | ~2021-01-22 | XR_ITS ---
EXAMINATION: XR chest 2V DATE: 02/02/2021 09:28 INDICATION: COVID-19 pneumonia. TECHNIQUE: Frontal and lateral views of the chest were obtained. COMPARISON: Chest single view 01/31/2021, 01/22/2021, chest CT 01/25/2021 FINDINGS: There are patchy airspace opacities in all lung zones bilaterally. There is focal lucency i n airspace opacities in left lower lobe, consistent with cavitation. No pleural effusion or pneumotho rax. The heart size is normal. There are surgical clips in the abdomen. IMPRESSION: 1. Diffuse lung disease with interval improvement on the left with new focal cavitation in left lower lobe, consistent with pneumonia. Reviewed, dictated and finalized at location A. IMPRESSION: 1. Diffuse lung disease with interval improvement on the left with new focal ca vitation in left lower lobe, consistent with pneumonia.
--- NOTE | ~2021-01-22 | XR_ITS ---
XR chest 1V portable DATE: 01/31/2021 12:14 INDICATION: Covid 19 infection. Dyspnea. TECHNIQUE: Portable AP chest on 01/2021 at 1212 hours COMPARISON: 01/29/2021 portable AP chest at 0535 hours FINDINGS: There are extensive bilateral pulmonary patchy consolidating infiltrates, increased in the left mid and lower lung zones, otherwise relatively stable. Normal heart size. No pleural effusion or pulmonary vascular congestion or pneumothorax is evident. IMPRESSION: Extensive bilateral pulmonary infiltrates, increased on the left since 01/29/2021 Reviewed, dictated and finalized at location A. IMPRESSION: Extensive bilateral pulmonary infiltrates, increased on the left si nce 01/29/2021
--- NOTE | ~2021-01-22 | CT_ITS ---
EXAMINATION: CTA chest PE protocol DATE: 02/05/2021 10:14 INDICATION: Hemoptysis. Pleuritic chest pain. TECHNIQUE: Computed tomography angiography (CTA) of the chest was performed with 100 mL Omnipaque-350 intravenous contrast timed to evaluate the pulmonary arteries. Coronal maximum intensity projection 3D-reconstructions were created by the technologist. Automated exposure control and iterative reconst ruction technique were employed. The dose-length product was 969.05 mGy-cm. COMPARISON: Chest CT 02/02/2021 FINDINGS: There are patchy airspace and groundglass opacities in all lobes. There are confluent airsp gilberto opacities in posterior segment right upper lobe with small area of cavitation. There are contiguo us airspace opacities in superior segment right lower lobe. There are confluent airspace opacities in left lower lobe with cavitation. There is a small left pleural effusion. The heart size is normal. T here are coronary artery calcifications. No pericardial effusion. There is no pulmonary embolus. Calc ifications in the spleen are consistent with old granulomatous disease. There are changes of cholecys tectomy. There is a 5.3 cm cyst in left kidney. There is severe thoracic spondylosis. Thoracic levosc oliosis is noted. IMPRESSION: 1. No pulmonary embolus. 2. Stable diffuse lung disease, likely a combination of COVID-19 pneumonia and necrotizing bacterial pneumonia. 3. Stable small left pleural effusion. Reviewed, dictated and finalized at location A.
--- NOTE | ~2021-01-22 | XR_ITS ---
EXAMINATION: XR fl bronchoscopy w imaging EXAM DATE: 02/03/2021 15:13 INDICATION: Lung Bx, Left Lung Biopsy. TECHNIQUE: Fluoroscopy used during left-sided bronchoscopy, lung biopsy performed by Dr. Blayne Maxwell MD. Radiologist was not present for the imaging or procedure. Total fluoroscopic time of 2. 7 minutes. A total of 5 images obtained for the exam. The DAP for this procedure was 1.5 mGym2. FINDINGS: Images demonstrated bronchoscopy, scope extending down left lower lobe bronchus and an add itional device extending further toward the periphery. Correlate with procedure note. IMPRESSION: Fluoroscopy used during bronchoscopy. Reviewed, dictated and finalized at location A.
[2021-01-22 17:27] LABS: Basophils Percent Auto 0.8 % (0.2-1.2); Hemoglobin 13.3 g/dL (12.0-15.0); Immature Granulocyte Absolute 0.01 K/mm3 (0.00-0.031); Immature Granulocyte Percent A 0.3 % (0-0.5); Lymphocytes Absolute Auto 0.83 K/mm3 (0.9-3.2); Lymphocytes Percent Auto 21.7 % (18.3-44.2); Mean Corpuscular HGB Conc 31.7 g/dl (32-36); Mean Corpuscular Hemoglobin 27.7 pg (26-34); Mean Corpuscular Volume 87.5 fl (80-100); Mean Platelet Volume 10.9 fl (7.4-10.4); Monocytes Absolute Auto 0.4 K/mm3 (0.1-0.6); Monocytes Percent Auto 10.2 % (2.6-8.5); Neutrophils Absolute Auto 2.6 K/mm3 (1.3-6.7); Platelet Count Result 182 k/mm3 (150-375); White Blood Count 3.8 K/mm3 (4.5-10.0)
[2021-01-22 17:34] LABS: INR 0.9; Prothrombin Time 12.6 Seconds (11.1-14.7)
[2021-01-22 17:35] LABS: Alanine Aminotransferase 30 U/L (4-35); Albumin Level 4.2 g/dL (3.5-5.1); Alkaline Phosphatase 74 U/L (38-126); Anion Gap 9 mmol/L (8-16); Aspartate Amino Transferase 42 U/L (14-36); Bilirubin,Total 0.4 mg/dL (0.2-1.3); Blood Urea Nitrogen 13 mg/dL (7-17); Calcium 9.5 mg/dL (8.4-10.2); Carbon Dioxide 29 mmol/L (22-30); Chloride 101 mmol/L (98-107); Estimated CRCL calculation 60 ml/min; Estimated Glomerular Filt Rate 46; Glucose 107 mg/dL (65-105); Partial Thromboplastin Time 29.9 SECONDS (22.3-36.8); Sodium 139 mmol/L (137-145)
[2021-01-22 17:47] LABS: NT Pro B Type Natriuretic Pept 28 PG/ML (5-100); Troponin I < 0.012 ng/mL (0.000-0.034)
--- NOTE | 2021-01-22 20:24 | ADMGEN ---
This patient, Karen Em, was admitted to 3 [facility] Surg Room 314-01 at 2007. Patient/family oriented to hospital policies and general routines including ID bracelet, bed and alarms, visiting hours, pain management, procedures, bathroom and other care routines, personal items, smoking policy, room service/diet, and visiting hours. Information on how to activate the Rapid Response Team has been discussed. Patient/Family are encouraged to report perceived risks to care and to ask questions if they do not understand what they are told or what they should do.
--- NOTE | 2021-01-22 21:20 | ED.GENADULT ---
HPI - General Adult General Chief complaint: Shortness of Breath/Dyspnea Stated complaint: sob/cough Time Seen by Provider: 01/22/21 17:11 Source: patient Mode of arrival: ambulatory Limitations: no limitations History of Present Illness HPI narrative: Patient with history of asthma, COPD, immunoglobulin deficiency presents with chief complaint of shortness of breath and cough over the past 2 days. Patient states that her son tested positive for Covid. Patient states that she was on a televisit today with her doctor and they noticed that her oxygen levels were dropping to 90 when she ambulated she was working hard to breathe. So they instructed her to come to the emergency department. Patient denies fever, nausea, vomiting, chest pain, pain with inspiration. Patient states she has been taking her home medications as instructed. Related Data Home Medications Medication Instructions Recorded Confirmed cholecalciferol (vitamin D3) 100 4,000 unit PO DAILY 10/21/19 01/22/21 mcg (4,000 unit) capsule cyclosporine 0.05 % eye drops 1 drop EACH EYE Q12H 10/21/19 01/22/21 losartan 50 mg tablet 100 mg PO DAILY 10/21/19 01/22/21 montelukast 10 mg tablet 10 mg PO DAILY 10/21/19 01/22/21 albuterol sulfate [ProAir HFA] 1 inh INHALATION QID PRN 01/26/20 01/22/21 metformin 500 mg PO BID 01/26/20 01/22/21 pravastatin 20 mg PO DAILY 01/26/20 01/22/21 fenofibrate nanocrystallized 48 mg 48 mg PO DAILY 07/28/20 01/22/21 tablet loratadine 10 mg tablet 10 mg PO DAILY 07/28/20 01/22/21 semaglutide 0.5 mg SUB-Q WEEKLY 07/28/20 01/22/21 celecoxib 200 mg PO BID 01/22/21 01/22/21 fluticasone propionate 1 spray INTRANASAL DAILY 01/22/21 01/22/21 folic acid 3 mg PO DAILY 01/22/21 01/22/21 leflunomide 20 mg PO DAILY 01/22/21 01/22/21 levothyroxine [Synthroid] 88 mcg PO DAILY 01/22/21 01/22/21 spironolactone 50 mg PO DAILY 01/22/21 01/22/21 Allergies Allergy/AdvReac Type Severity Reaction Status Date / Time amoxicillin Allergy Severe Hives Verified 01/22/21 20:34 Sulfa (Sulfonamide Allergy Severe Hives Verified 01/22/21 20:35 Antibiotics) amitriptyline AdvReac Mild Unknown Verified 01/22/21 20:34 fentanyl AdvReac Difficulty Verified 01/22/21 20:36 Breathing Review of Systems Review of Systems: Narrative: CONSTITUTIONAL: Reports fatigue denies fever, chills, or sweats. EYES: Denies visual changes, redness, or discharge. ENT: Denies rhinorrhea, congestion, sore throat, or otalgia. CARDIOVASCULAR: Denies chest pain, palpitations, or edema. RESPIRATORY: Reports cough and dyspnea. GASTROINTESTINAL: Denies abdominal pain, nausea, vomiting, or diarrhea. GENITOURINARY: Denies dysuria or hematuria. SKIN: Denies rash or itching. MUSCULOSKELETAL: Denies back pain, joint pain, or myalgia. NEUROLOGIC: Denies headache, numbness, dizziness, or weakness. PSYCHIATRIC: Denies anxiety or depression. [facility] Past Medical History Medical History Asthma Asthma exacerbation Generalized osteoarthritis of multiple sites Hypothyroid Neck pain without injury Other mcc (current) drug therapy Prediabetes Vitamin D deficiency Surgical History Surgical History Delivery by section H/O lateral meniscus repair of right knee H/O tubal ligation History of hysterectomy History of tonsillectomy Hx of cholecystectomy Family History Family History Father Lung cancer Thyroid cancer Carcinoma of colon Mother Brain cancer Lung cancer Colitis COPD (chronic obstructive pulmonary disease) Depression Mother Depression, Onset Age: 60 Family history of colitis, Onset Age: 60 Family history of chronic obstructive pulmonary disease, Onset Age: 60 Family history of lung cancer, Onset Age: 60 Family history of malignant neoplasm of brain, Onset Age: 60 Father Carcin
[2021-01-22] MEDS: DEXAMETHASONE SOD PHOS INJ 4 MG/ML VIAL 6 MG IV PUSH (22:02)
[2021-01-22] MEDS: REMDESIVIR 200 MG/NS 250 ML 200 MG/250 ML BAG 250 MG IVPB (22:02)
[2021-01-22] MEDS: ALBUTEROL SULFATE (*SP) INHALER 2 PUFF INHALATION (22:03)
[2021-01-23] VITALS (14 sets, daily range): BP systolic 101–126; BP diastolic 49–64; PULSE 78–89; RESP 18–22; TEMP 36.4–36.9; O2SAT 93–95; BMI 51.3
[2021-01-23 00:53] LABS: Glucose Point of Care 150 (65-105)
[2021-01-23 01:43] LABS: SARS-CoV-2 RNA PCR Positive
--- NOTE | 2021-01-23 02:01 | PM.IMHP ---
H&P: HPI History of Present Illness Date/Time: 01/23/21 02:01 Chief Complaint: Shortness of breath Narrative: 55-year-old female with a past medical history of morbid obesity, obstructive sleep apnea, asthma/COPD, and borderline diabetes mellitus who presented to the ER from home with shortness of breath. The patient reports that her son was diagnosed with COVID 2 weeks ago in his symptoms have resolved. The patient became ill 3 days ago. She was began having nasal congestion and thought that she may have had a sinus infection. She also had a frontal headache. Then 2 days later she began having wheezing and a mostly nonproductive cough. She had a temperature of 100? on the . She has generalized body aches at baseline but thinks she may have been having some increased body aches over the last several days. She has noticed increased wheezing and shortness of breath. She has a finger pulse oximeter at home if she reports that her oxygen saturations would drop to 91% with activity. In ER the patient was satting 93 to 96% on room air. After coughing episode on the floor she briefly dropped to 90% but then recovered quickly. She reports feeling generalized chest tightness. Her chest tightness is worse with deep breathing. She denies any lower extremity swelling or pain. She has not had any loss of taste or smell. Her shortness of breath the not improve with her home inhalers. She had 1 episode of vomiting while she was in the ER. She has been having loose stools for the last 24-36 hours. She denies any hematochezia or melena. She has a history of IgG deficiency and had her last immunoglobulin infusion in October. She reports she is due to have an infusion again in February. 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 She denies a history of CHF in reports that she had stress test that demonstrated EF of 62% with no evidence of myocardial ischemia. She is compliant with her CPAP therapy. Her home CPAP settings are pressure was 7. Review of Systems Review of Systems: Narrative: 12 systems were reviewed with pertinent positives and negatives per HPI. Except as documented in the HPI, all other systems were reviewed and are negative. [facility] Past Medical History Medical History Asthma with COPD PFTs 05/10/2020 Hypothyroid IgG deficiency Morbid obesity YOON (obstructive sleep apnea) Prediabetes Rheumatoid arthritis Vitamin D deficiency Surgical History Surgical History Delivery by section H/O lateral meniscus repair of right knee H/O tubal ligation History of hysterectomy History of tonsillectomy Hx of cholecystectomy Family History Family History Father Lung cancer Thyroid cancer Carcinoma of colon Mother Brain cancer Lung cancer Colitis COPD (chronic obstructive pulmonary disease) Depression Social History Social History (Updated 01/23/21 @ 02:17 by Linsey Coles DO) Social History: Patient lives at home with her of 26 years. Her 28-year-old son and daughter in law also live with them. 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 Primary care provider: Dr. iDrk Solis Code status: Full code Surrogate decision maker: Smoking packs per day: 1 Smoking cigarettes per day: 20.0 Years smoked: 10 Smoking pack-years: 10.00 Smoking status: Former smoker Tobacco type: cigarettes Alcohol intake: never Substance use: never Gender identity (if verbalized by the patient): Female Spiritual care concerns: No Agree to blood products: Yes Meds Home Medications and Allergies Home Medications Medication Instructions Recorded Confirmed Type cholecalciferol (vitamin D3) 1
[2021-01-23] MEDS: ALBUTEROL SULFATE (*SP) INHALER 6 PUFF INHALATION ×2 (02:45→08:01)
[2021-01-23] MEDS: LEVOTHYROXINE SODIUM 88 MCG TABLET PO (05:58)
[2021-01-23 06:29] LABS: Hematocrit 41.6 % (37.0-47.0); Mean Corpuscular HGB Conc 31.3 g/dl (32-36); Mean Corpuscular Hemoglobin 27.3 pg (26-34); Mean Corpuscular Volume 87.2 fl (80-100); Mean Platelet Volume 10.8 fl (7.4-10.4); Platelet Count Result 178 k/mm3 (150-375); Red Blood Count 4.77 M/mm3 (4.2-5.4); Red Cell Distribution Width 13.8 % (11.5-14.5); White Blood Count 2.8 K/mm3 (4.5-10.0)
[2021-01-23 06:40] LABS: D Dimer 0.62 ug/mL (<0.48)
[2021-01-23 06:42] LABS: Alanine Aminotransferase 29 U/L (4-35); Albumin Level 4.1 g/dL (3.5-5.1); Alkaline Phosphatase 76 U/L (38-126); Anion Gap 10 mmol/L (8-16); Aspartate Amino Transferase 37 U/L (14-36); Bilirubin,Total 0.4 mg/dL (0.2-1.3); Blood Urea Nitrogen 19 mg/dL (7-17); CRP 6.1 mg/dL (<1.0); Calcium 9.2 mg/dL (8.4-10.2); Carbon Dioxide 26 mmol/L (22-30); Chloride 104 mmol/L (98-107); Estimated CRCL calculation 53 ml/min; Estimated Glomerular Filt Rate 39; Glucose 144 mg/dL (65-105); Lactate Dehydrogenase 654 U/L (313-618); Potassium 4.1 mmol/L (3.4-5.0); Sodium 140 mmol/L (137-145)
[2021-01-23] MEDS: BUDESONIDE/FORMOTEROL (*SP) 160-4.5 MCG 6 GM INH 2 PUFF INHALATION (08:03)
[2021-01-23] MEDS: CHOLECALCIFEROL 1,000 UNITS TABLET 4000 UNITS PO (08:05)
[2021-01-23] MEDS: MONTELUKAST SODIUM 10 MG TABLET PO (08:05)
[2021-01-23] MEDS: PRAVASTATIN SODIUM 20 MG TABLET PO (08:05)
[2021-01-23] MEDS: LEFLUNOMIDE 20 MG TABLET PO (08:05)
[2021-01-23] MEDS: FOLIC ACID 1 MG TABLET 3 MG PO (08:05)
[2021-01-23] MEDS: PANTOPRAZOLE 40 MG TABLET PO (08:05)
[2021-01-23] MEDS: HYDROXYCHLOROQUINE SULFATE 200 MG TABLET 400 MG PO (08:06)
[2021-01-23] MEDS: FLUTICASONE PROPIONATE 0.05% NA SPR 16 GM BTL (*BKC) 1 SPRAY NASAL (08:06)
[2021-01-23] MEDS: metFORMIN HCL 500 MG TABLET PO (08:06)
[2021-01-23] MEDS: SPIRONOLACTONE 50 MG TABLET PO (08:06)
[2021-01-23] MEDS: LORATADINE 10 MG TABLET PO (08:06)
[2021-01-23] MEDS: FENOFIBRATE,MICRONIZED 48 MG TABLET PO (08:06)
[2021-01-23] MEDS: ENOXAPARIN 40 MG/0.4 ML SYRINGE SUB-Q ×2 (08:07→22:21)
[2021-01-23] MEDS: cycloSPORINE 0.4 ML OPHTH SOLUTION 1 DROP EACH EYE ×2 (08:07→22:21)
[2021-01-23] MEDS: LOSARTAN POTASSIUM 50 MG TABLET 100 MG PO (08:14)
[2021-01-23 08:26] LABS: Glucose Point of Care 118 (65-105)
[2021-01-23] MEDS: DEXAMETHASONE SOD PHOS INJ 4 MG/ML VIAL 6 MG IV PUSH (09:43)
[2021-01-23 11:52] LABS: Glucose Point of Care 160 (65-105)
[2021-01-23] MEDS: guaiFENesin 12 HR 600 MG TABCR 1200 MG PO ×2 (12:13→22:21)
[2021-01-23] MEDS: LACTATED RINGERS 1,000 ML 75 ML IV CONT (12:25)
--- NOTE | 2021-01-23 13:01 | P.PNIM_ITS ---
Progress Note: A&P Assessment and Plan (1) Pneumonia due to COVID-19 virus: Code(s): U07.1 - COVID-19; J12.82 - Pneumonia due to coronavirus disease 2019 Status: Acute Assessment and Plan: Symptoms started 2-3 days prior to admission. She was exposed to her son who was positive 2 weeks ago. SARS-CoV-2 testing performed 01/22/21 is positive. CXR demonstrates small to moderate patchy bilateral ill-defined pneumonia. * Pulmonology consulted given complexity due to underlying pulmonary disease * She received 1 dose of remdesivir but is no longer hypoxic so remdesivir was discontinued. Will await pulmonology input regarding remdesivir. * Continue dexamethasone - initiated 01/22/21 (day 2) * Continue supportive care with bronchodilators, expectorant, incentive spirometry, PEP therapy * Trend acute phase reactants * Continue isolation precautions (2) Acute respiratory failure with hypoxia: Code(s): J96.01 - Acute respiratory failure with hypoxia Status: Resolved Assessment and Plan: Resolved. Per ER documentation, oxygen saturation was witnessed dropping between 87 and 92%. Secondary to COVID-19 pneumonia. She was initially placed on 2 liters but she was subsequently weaned to room air. * Continue supplemental oxygen as needed to maintain oxygen saturation >90%, wean as tolerated * Further plan outlined below (3) LISA (acute kidney injury): Code(s): N17.9 - Acute kidney failure, unspecified Status: Acute Assessment and Plan: Cr with mild increase from 1.2 on admission to 1.4 today. Baseline 0.8-1.0. BUN 19. * Hold metformin * Gentle IV fluids started * Avoid nephrotoxins and renally dose medications * Follow trend (4) Asthma with COPD: Code(s): J44.9 - Chronic obstructive pulmonary disease, unspecified Status: Acute Assessment and Plan: She wheezing concerning for component of exacerbation of her COPD/asthma due to her lower respiratory tract infection. * Pulmonology following with management deferred to pulmonology * Continue dexamethasone * Continue albuterol, ipratropium, budesonide, montelukast * Await further pulmonology input (5) YOON (obstructive sleep apnea): Code(s): G47.33 - Obstructive sleep apnea (adult) (pediatric) Status: Acute Assessment and Plan: Continue CPAP titrated to home settings with filter while inpatient. (6) Hypothyroid: Code(s): E03.9 - Hypothyroidism, unspecified Status: Acute Assessment and Plan: Check TSH. * Continue levothyroxine (7) Prediabetes: Code(s): R73.03 - Prediabetes Status: Chronic Assessment and Plan: Check hemoglobin A1c. Blood sugars are reasonable with most recent 160. * Hold metformin * Continue ACHS glucose monitoring, sliding scale insulin, and hypoglycemia protocol (8) Rheumatoid arthritis: Code(s): M06.9 - Rheumatoid arthritis, unspecified Status: Chronic Assessment and Plan: Not in acute exacerbation. * Hold leflunomide given acute COVID-19 infection and do not resume until at least 7-14 days have passes after symptom resolution * Continue hydroxychloroquine, will monitor telemetry (9) 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, unspecified Status: Acute Assessment and Plan: She follows with Dr. Moody and receives IVIG q4 months. Her next infusion is due in February.
--- NOTE | 2021-01-23 13:01 | PM.IMPN ---
Progress Note: A&P Assessment and Plan (1) Pneumonia due to COVID-19 virus: Code(s): U07.1 - COVID-19; J12.82 - Pneumonia due to coronavirus disease 2019 Status: Acute Assessment and Plan: Symptoms started 2-3 days prior to admission. She was exposed to her son who was positive 2 weeks ago. SARS-CoV-2 testing performed 01/22/21 is positive. CXR demonstrates small to moderate patchy bilateral ill-defined pneumonia. Pulmonology consulted given complexity due to underlying pulmonary disease She received 1 dose of remdesivir but is no longer hypoxic so remdesivir was discontinued. Will await pulmonology input regarding remdesivir. Continue dexamethasone - initiated 01/22/21 (day 210) Continue supportive care with bronchodilators, expectorant, incentive spirometry, PEP therapy Trend acute phase reactants Continue isolation precautions (2) Acute respiratory failure with hypoxia: Code(s): J96.01 - Acute respiratory failure with hypoxia Status: Resolved Assessment and Plan: Resolved. Per ER documentation, oxygen saturation was witnessed dropping between 87 and 92%. Secondary to COVID-19 pneumonia. She was initially placed on 2 liters but she was subsequently weaned to room air. Continue supplemental oxygen as needed to maintain oxygen saturation >90%, wean as tolerated Further plan outlined below (3) LISA (acute kidney injury): Code(s): N17.9 - Acute kidney failure, unspecified Status: Acute Assessment and Plan: Cr with mild increase from 1.2 on admission to 1.4 today. Baseline 0.8-1.0. BUN 19. Hold metformin Gentle IV fluids started Avoid nephrotoxins and renally dose medications Follow trend (4) Asthma with COPD: Code(s): J44.9 - Chronic obstructive pulmonary disease, unspecified Status: Acute Assessment and Plan: She wheezing concerning for component of exacerbation of her COPD/asthma due to her lower respiratory tract infection. Pulmonology following with management deferred to pulmonology Continue dexamethasone Continue albuterol, ipratropium, budesonide, montelukast Await further pulmonology input (5) YOON (obstructive sleep apnea): Code(s): G47.33 - Obstructive sleep apnea (adult) (pediatric) Status: Acute Assessment and Plan: Continue CPAP titrated to home settings with filter while inpatient. (6) Hypothyroid: Code(s): E03.9 - Hypothyroidism, unspecified Status: Acute Assessment and Plan: Check TSH. Continue levothyroxine (7) Prediabetes: Code(s): R73.03 - Prediabetes Status: Chronic Assessment and Plan: Check hemoglobin A1c. Blood sugars are reasonable with most recent 160. Hold metformin Continue ACHS glucose monitoring, sliding scale insulin, and hypoglycemia protocol (8) Rheumatoid arthritis: Code(s): M06.9 - Rheumatoid arthritis, unspecified Status: Chronic Assessment and Plan: Not in acute exacerbation. 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 Moody and receives IVIG q4 months. Her next infusion is due in February. Immunoglobulins ordered and pending Subjective Date/time seen: 01/23/21 13:01 Mrs. Em is a 55 y.o. female with PMH significant for severe asthma with airway remodeling, IgG deficiency, YOON on CPAP, rheumatoid arthritis, hypothyroidism, prediabetes, and morbid obesity who is seen in follow-up for COVID-19 pneumonia. She is doing okay today. She still has dyspnea on exertion but is comfortable at rest. She notes wheezing as well. She notes cough which
[2021-01-23 13:37] LABS: NT Pro B Type Natriuretic Pept 32 PG/ML (5-100)
--- NOTE | 2021-01-23 13:46 | PM.CNPUL ---
Assessment and Plan Assessment and plan (1) Pneumonia due to COVID-19 virus: Code(s): U07.1 - COVID-19; J12.82 - Pneumonia due to coronavirus disease 2019 Status: Acute Assessment and Plan: in light of her immune deficiency and brief hypoxia down to 91-92%. I feel it is in her benefit to be treated fully with Remdesivir for 10 days as well as Dexamethsone for 10 days. (2) Asthma: Qualifiers: Asthma severity: unspecified severity Asthma persistence: unspecified Asthma complication type: unspecified Qualified Code(s): J45.909 - Unspecified asthma, uncomplicated Code(s): J45.909 - Unspecified asthma, uncomplicated Status: Chronic Assessment and Plan: discontinue inhaler therapy and start Pulmicort 1.0 mg q.12 hours nebulized Discontinue Spiriva and start ipratropium 0.5 mg q.6 hours nebulized Continue albuterol 2.5 mg Q 6 hours p.r.n. for dyspnea (3) Asthma exacerbation: Code(s): J45.901 - Unspecified asthma with (acute) exacerbation Status: Acute (4) 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, unspecified Status: Acute Assessment and Plan: she will need IVIG during this admission given her COVID-19 pneumonia infection. The dose will be determined once her IgG levels are back. (5) Acute respiratory failure with hypoxia: Code(s): J96.01 - Acute respiratory failure with hypoxia Status: Resolved History of Present Illness History of Present Illness Consult date: 01/23/21 Chief complaint: COVID pneumonia suspected with hypoxia Narrative: 55-year-old very pleasant female known to our clinic with a history of CVID, asthma, hypertension, hypothyroidism, rheumatoid arthritis who is immune compromised presents with nonproductive cough and increasing shortness of breath as well as chest tightness. She had a mild temperature elevation at home of up to 100? F. her son was recently diagnosed with COVID-19. She is now positive for COVID-19 and has bilateral pneumonia on chest x-ray. Her O2 saturation did drop down to 91% at home and has been as low as 92% here but she is currently at 95% on room air at rest. She denies any shortness of breath except with exertion and feels weak and tired. She last had IVIG back in September of 2020. Her last IgG level was around 600 about 3 weeks ago. She was given a dose of REM does severe in the emergency department as well as dexamethasone. Review of Systems Review of Systems: All systems reviewed & are unremarkable except as noted in HPI and below PMFSH Past Medical History Medical History (Updated 01/23/21 @ 15:26 by Justina Campo MD) Asthma with COPD PFTs 05/10/2020 Hypothyroid IgG deficiency Morbid obesity YOON (obstructive sleep apnea) Prediabetes Rheumatoid arthritis Vitamin D deficiency Surgical History Surgical History Delivery by section H/O lateral meniscus repair of right knee H/O tubal ligation History of hysterectomy History of tonsillectomy Hx of cholecystectomy Family History Family History Father Lung cancer Thyroid cancer Carcinoma of colon Mother Brain cancer Lung cancer Colitis COPD (chronic obstructive pulmonary disease) Depression Social History Social History (Updated 01/23/21 @ 02:17 by Linsey Coles DO) Social History: Patient lives at home with her of 26 years. Her 28-year-old son and daughter in law also live with them. 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 Primary care provider: Dr. Dirk Solis Code status: Full code Surrogate decision maker: Smoking packs per day: 1 Smoking cigarettes per day: 20.0 Years smoked: 10 Smoking pack-years: 10.00 Smoking status: Former sm
[2021-01-23 13:49] LABS: Immunoglobulin A 60 mg/dL (70-400); Immunoglobulin M 37 mg/dL (40-230)
[2021-01-23] MEDS: IPRATROPIUM BR 0.02% INH SOLN 0.5 MG/2.5 ML VIAL INHALATION ×2 (15:03→20:36)
[2021-01-23 16:46] LABS: Glucose Point of Care 122 (65-105)
[2021-01-23] MEDS: ALBUTEROL SULFATE NEB 2.5 MG/0.5 ML INH INHALATION (20:37)
[2021-01-23] MEDS: BUDESONIDE RESPULE NEB 0.5 MG/2 ML AMP 1 MG INHALATION (20:37)
[2021-01-23] MEDS: REMDESIVIR 100 MG/NS 250 ML 100 MG/250 ML BAG 250 MG IVPB (22:21)
[2021-01-23 22:33] LABS: Glucose Point of Care 158 (65-105)
[2021-01-24] VITALS (14 sets, daily range): BP systolic 111–143; BP diastolic 46–79; PULSE 68–87; RESP 16–22; TEMP 36.5–37.1; O2SAT 92–100
[2021-01-24] MEDS: IPRATROPIUM BR 0.02% INH SOLN 0.5 MG/2.5 ML VIAL INHALATION ×4 (02:17→20:02)
[2021-01-24] MEDS: ALBUTEROL SULFATE NEB 2.5 MG/0.5 ML INH INHALATION ×3 (02:18→14:06)
[2021-01-24] MEDS: LEVOTHYROXINE SODIUM 88 MCG TABLET PO (06:40)
[2021-01-24 06:42] LABS: Basophils Percent Auto 0.2 % (0.2-1.2); Hematocrit 38.8 % (37.0-47.0); Hemoglobin 12.2 g/dL (12.0-15.0); Immature Granulocyte Absolute 0.02 K/mm3 (0.00-0.031); Immature Granulocyte Percent A 0.4 % (0-0.5); Lymphocytes Absolute Auto 0.77 K/mm3 (0.9-3.2); Lymphocytes Percent Auto 15.3 % (18.3-44.2); Mean Corpuscular HGB Conc 31.4 g/dl (32-36); Mean Corpuscular Hemoglobin 27.6 pg (26-34); Mean Corpuscular Volume 87.8 fl (80-100); Monocytes Absolute Auto 0.5 K/mm3 (0.1-0.6); Monocytes Percent Auto 9.9 % (2.6-8.5); Neutrophils Absolute Auto 3.7 K/mm3 (1.3-6.7); Neutrophils Percent Auto 74.2 % (45.5-73.1); Platelet Count Result 188 k/mm3 (150-375); Red Blood Count 4.42 M/mm3 (4.2-5.4)
[2021-01-24 06:57] LABS: Alanine Aminotransferase 25 U/L (4-35); Albumin Level 3.7 g/dL (3.5-5.1); Alkaline Phosphatase 66 U/L (38-126); Anion Gap 7 mmol/L (8-16); Aspartate Amino Transferase 35 U/L (14-36); Bilirubin,Total 0.3 mg/dL (0.2-1.3); Blood Urea Nitrogen 27 mg/dL (7-17); CRP 2.7 mg/dL (<1.0); Calcium 8.9 mg/dL (8.4-10.2); Carbon Dioxide 28 mmol/L (22-30); Chloride 106 mmol/L (98-107); Creatine Kinase 162 U/L (30-135); Estimated CRCL calculation 57 ml/min; Estimated Glomerular Filt Rate 42; Glucose 114 mg/dL (65-105); Lactate Dehydrogenase 659 U/L (313-618); Magnesium 1.8 mg/dL (1.6-2.3); Potassium 3.9 mmol/L (3.4-5.0); Sodium 141 mmol/L (137-145)
[2021-01-24] MEDS: BUDESONIDE RESPULE NEB 0.5 MG/2 ML AMP 1 MG INHALATION ×2 (07:55→20:02)
[2021-01-24] MEDS: ENOXAPARIN 40 MG/0.4 ML SYRINGE SUB-Q ×2 (08:28→21:33)
[2021-01-24] MEDS: MONTELUKAST SODIUM 10 MG TABLET PO (08:29)
[2021-01-24] MEDS: CHOLECALCIFEROL 1,000 UNITS TABLET 4000 UNITS PO (08:29)
[2021-01-24] MEDS: DEXAMETHASONE SOD PHOS INJ 4 MG/ML VIAL 6 MG IV PUSH (08:29)
[2021-01-24] MEDS: FOLIC ACID 1 MG TABLET 3 MG PO (08:29)
[2021-01-24] MEDS: cycloSPORINE 0.4 ML OPHTH SOLUTION 1 DROP EACH EYE ×2 (08:30→21:33)
[2021-01-24] MEDS: FLUTICASONE PROPIONATE 0.05% NA SPR 16 GM BTL (*BKC) 1 SPRAY NASAL (08:30)
[2021-01-24] MEDS: FENOFIBRATE,MICRONIZED 48 MG TABLET PO (08:30)
[2021-01-24] MEDS: PRAVASTATIN SODIUM 20 MG TABLET PO (08:31)
[2021-01-24] MEDS: LORATADINE 10 MG TABLET PO (08:31)
[2021-01-24] MEDS: guaiFENesin 12 HR 600 MG TABCR 1200 MG PO ×2 (08:31→21:33)
[2021-01-24] MEDS: PANTOPRAZOLE 40 MG TABLET PO (08:31)
[2021-01-24 08:57] LABS: Glucose Point of Care 108 (65-105)
--- NOTE | 2021-01-24 09:13 | PM.PNPUL ---
Progress Note: A&P Assessment and Plan (1) Asthma exacerbation: Code(s): J45.901 - Unspecified asthma with (acute) exacerbation Status: Inactive Assessment and Plan: - continue Pulmicort 1 mg q.12 hours nebulized continue ipratropium 0.5 mg q.6 hours nebulized continue albuterol 2.5 mg Q 6 hours p.r.n. (2) Pneumonia due to COVID-19 virus: Code(s): U07.1 - COVID-19; J12.82 - Pneumonia due to coronavirus disease 2019 Status: Acute Assessment and Plan: Continue Remdesivir for total of 10 days continue dexamethasone for a total of 10 days (3) 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, unspecified Status: Acute Assessment and Plan: She received a dose of IVIG at 80 mg per kg x1 on 01/23/2021. IgG levels are still pending Subjective Date/time seen: 01/24/21 09:13 Interval history: she feels a bit more wheezy today but overall no significant change since yesterday. She is in no acute respiratory distress. She received a dose of IVIG yesterday and was continued on Remdesivir and dexamethasone. Review of Systems Review of Systems: All systems reviewed & are unremarkable except as noted in HPI and below Exam Narrative: Exam Narrative: GENERAL: Ill-appearing, well-nourished, and in no acute distress. Morbidly obese HEAD: Normocephalic, atraumatic. EYES: PERRLA and EOMI. ENT: Nares clear, no rhinorrhea or epistaxis. Mucous membranes moist. Oropharynx without tonsillar hypertrophy exudate or other lesions. Bilateral TMs pearly [place] nonbulging NECK: Supple. No adenopathy or masses. CHEST: No tachypnea. improved breath sounds with expiratory wheezing HEART: Regular rate and rhythm. No murmur heard. Normal peripheral pulses. EXTREMITIES: Normal range of motion. No edema. SKIN: Warm, dry, no rash. NEURO: No focal deficits. Alert and oriented x3. PSYCH: Normal mood and affect. Objective Data Vital Signs Vital Signs: Vital Signs - 24 hr 01/23/21 09:28 01/23/21 12:00 01/23/21 16:00 Temperature 36.5 C 36.4 C Pulse Rate 85 88 Respiratory Rate 18 20 Blood Pressure 113/60 113/63 Pulse Oximetry 95 94 94 01/23/21 20:00 01/23/21 20:37 01/23/21 20:48 Temperature 36.5 C Pulse Rate 82 81 81 Respiratory Rate 22 H 20 20 Blood Pressure 126/64 Pulse Oximetry 93 94 01/23/21 20:51 01/23/21 21:00 01/24/21 00:00 Temperature 36.5 C Pulse Rate 80 74 Respiratory Rate 20 20 22 H Blood Pressure 133/65 Pulse Oximetry 95 96 01/24/21 02:18 01/24/21 02:30 01/24/21 04:00 Temperature 36.6 C Pulse Rate 75 77 70 Respiratory Rate 21 H 20 20 Blood Pressure 142/70 H Pulse Oximetry 92 01/24/21 07:58 01/24/21 07:59 01/24/21 08:00 Temperature 36.6 C Pulse Rate 75 71 Respiratory Rate 18 16 Blood Pressure 111/46 L Pulse Oximetry 92 100 01/24/21 08:15 Temperature Pulse Rate 80 Respiratory Rate 20 Blood Pressure Pulse Oximetry Intake/Output Intake/Output: Intake & Output 01/21/21 01/22/21 01/23/21 01/24/21 23:59 23:59 23:59 23:59 Intake Total 250 3070 1150 Output Total 600 2350 Balance 250 2470 -1200 Meds/Results Medications: Active Medications Generic Name Dose Route Start Last Admin Trade Name Freq PRN Reason Stop Dose Admin Albuterol 2.5 mg 01/23/21 12:13 01/24/21 07:55 Albuterol Sulfate Neb 2.5 Mg/0.5 Ml Inh INHALATION 2.5 mg Q6HRT PRN Administration Dyspnea Budesonide 1 mg 01/23/21 20:00 01/24/21 07:55 Budesonide Respule Neb 0.5 Mg/2 Ml Amp INHALATION 1 mg Q12HRT ESTRELLITA Administration Celecoxib 200 mg 01/23/21 09:00 Celecoxib 200 Mg Capsule PO BID ESTRELLITA Cyclosporine 1 drop 01/23/21 09:00 01/24/21 08:30 Cyclosporine 0.4 Ml Ophth Solution EACH EYE 1 drop Q12HR ESTRELLITA Administration Dexamethasone Sodium Phosphate 6 mg 01/23/21 09:00 01/24/21 08:29 Dexamethasone Sod Phos Inj 4 Mg/Ml Vial IV PU
--- NOTE | 2021-01-24 10:32 | P.PNIM_ITS ---
Progress Note: A&P Assessment and Plan (1) Pneumonia due to COVID-19 virus: Code(s): U07.1 - COVID-19; J12.82 - Pneumonia due to coronavirus disease 2019 Status: Acute Assessment and Plan: Symptoms started 2-3 days prior to admission. She was exposed to her son who was positive 2 weeks ago. SARS-CoV-2 testing performed 01/22/21 positive. CXR demonstrates small to moderate patchy bilateral ill-defined pneumonia. * Pulmonology consulted given complexity due to underlying pulmonary disease. Appreciate pulmonology recommendations. * Continue remdesivir per pulmonology recommendations due to immune deficiency - initiated 01/22, day 3 * Continue dexamethasone - initiated 01/22, day 01/06 * Continue supportive care with bronchodilators, expectorant, incentive spirometry, PEP therapy * Trend acute phase reactants * Continue isolation precautions (2) Acute respiratory failure with hypoxia: Code(s): J96.01 - Acute respiratory failure with hypoxia Status: Resolved Assessment and Plan: Resolved. Per ER documentation, oxygen saturation was witnessed dropping between 87 and 92%. Secondary to COVID-19 pneumonia. She was initially placed on 2 liters but she was subsequently weaned to room air. * Continue supplemental oxygen as needed to maintain oxygen saturation >90%, wean as tolerated * Further plan outlined below (3) LISA (acute kidney injury): Code(s): N17.9 - Acute kidney failure, unspecified Status: Acute Assessment and Plan: Cr with mild increase from 1.2 on admission to 1.4 01/24. Baseline 0.8-1.0. BUN 19. Cr has improved to 1.3 today. * Hold metformin * Gentle IV fluids started * Avoid nephrotoxins and renally dose medications * Follow trend (4) Asthma with COPD: Code(s): J44.9 - Chronic obstructive pulmonary disease, unspecified Status: Acute Assessment and Plan: She has wheezing concerning for component of exacerbation of her COPD/asthma due to her lower respiratory tract infection. Wheezing has improved today. * Pulmonology following with management deferred to pulmonology * Continue dexamethasone * Continue albuterol, ipratropium, budesonide, montelukast (5) YOON (obstructive sleep apnea): Code(s): G47.33 - Obstructive sleep apnea (adult) (pediatric) Status: Acute Assessment and Plan: Continue CPAP titrated to home settings with filter while inpatient. (6) Hypothyroid: Code(s): E03.9 - Hypothyroidism, unspecified Status: Acute Assessment and Plan: TSH ordered and pending. * Continue levothyroxine (7) Prediabetes: Code(s): R73.03 - Prediabetes Status: Chronic Assessment and Plan: Hemoglobin A1c ordered and pending. Blood sugars are reasonable with most recent 108. * Hold metformin * Continue ACHS glucose monitoring, sliding scale insulin, and hypoglycemia protocol (8) Rheumatoid arthritis: Code(s): M06.9 - Rheumatoid arthritis, unspecified Status: Chronic Assessment and Plan: Not in acute exacerbation. * Leflunomide hrlf given acute COVID-19 infection and will not resume until at least 7-14 days have passes after symptom resolution * Continue hydroxychloroquine, will monitor telemetry (9) 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, unspecified Status: Acute Assessment and Plan: She follows with Dr. Moody and receives IVIG q
--- NOTE | 2021-01-24 10:32 | PM.IMPN ---
Progress Note: A&P Assessment and Plan (1) Pneumonia due to COVID-19 virus: Code(s): U07.1 - COVID-19; J12.82 - Pneumonia due to coronavirus disease 2019 Status: Acute Assessment and Plan: Symptoms started 2-3 days prior to admission. She was exposed to her son who was positive 2 weeks ago. SARS-CoV-2 testing performed 01/22/21 positive. CXR demonstrates small to moderate patchy bilateral ill-defined pneumonia. Pulmonology consulted given complexity due to underlying pulmonary disease. Appreciate pulmonology recommendations. Continue remdesivir per pulmonology recommendations due to immune deficiency - initiated 01/22, day 3 Continue dexamethasone - initiated 01/22, day 01/06 Continue supportive care with bronchodilators, expectorant, incentive spirometry, PEP therapy Trend acute phase reactants Continue isolation precautions (2) Acute respiratory failure with hypoxia: Code(s): J96.01 - Acute respiratory failure with hypoxia Status: Resolved Assessment and Plan: Resolved. Per ER documentation, oxygen saturation was witnessed dropping between 87 and 92%. Secondary to COVID-19 pneumonia. She was initially placed on 2 liters but she was subsequently weaned to room air. Continue supplemental oxygen as needed to maintain oxygen saturation >90%, wean as tolerated Further plan outlined below (3) LISA (acute kidney injury): Code(s): N17.9 - Acute kidney failure, unspecified Status: Acute Assessment and Plan: Cr with mild increase from 1.2 on admission to 1.4 01/24. Baseline 0.8-1.0. BUN 19. Cr has improved to 1.3 today. Hold metformin Gentle IV fluids started Avoid nephrotoxins and renally dose medications Follow trend (4) Asthma with COPD: Code(s): J44.9 - Chronic obstructive pulmonary disease, unspecified Status: Acute Assessment and Plan: She has wheezing concerning for component of exacerbation of her COPD/asthma due to her lower respiratory tract infection. Wheezing has improved today. Pulmonology following with management deferred to pulmonology Continue dexamethasone Continue albuterol, ipratropium, budesonide, montelukast (5) YOON (obstructive sleep apnea): Code(s): G47.33 - Obstructive sleep apnea (adult) (pediatric) Status: Acute Assessment and Plan: Continue CPAP titrated to home settings with filter while inpatient. (6) Hypothyroid: Code(s): E03.9 - Hypothyroidism, unspecified Status: Acute Assessment and Plan: TSH ordered and pending. Continue levothyroxine (7) Prediabetes: Code(s): R73.03 - Prediabetes Status: Chronic Assessment and Plan: Hemoglobin A1c ordered and pending. Blood sugars are reasonable with most recent 108. Hold metformin Continue ACHS glucose monitoring, sliding scale insulin, and hypoglycemia protocol (8) Rheumatoid arthritis: Code(s): M06.9 - Rheumatoid arthritis, unspecified Status: Chronic Assessment and Plan: Not in acute exacerbation. 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 Moody and receives IVIG q4 months. Immunoglobulins ordered with low IgA, IgM. IgG pending. She received 1 dose of IVIG 01/23/21 Subjective Date/time seen: 01/24/21 10:32 Mrs. Em is a 55 y.o. female with PMH significant for severe asthma with airway remodeling, IgG deficiency, YOON on CPAP, rheumatoid arthritis, hypothyroidism, prediabetes, and morbid obesity who is seen in follow-up for COVID-19 pneumonia. She is doing okay today. She feels about the same. She compla
[2021-01-24 11:02] LABS: Hemoglobin A1C 5.3 % (<5.7)
[2021-01-24] MEDS: ACETAMINOPHEN 325 MG TABLET 650 MG PO (11:50)
[2021-01-24 12:24] LABS: Thyroid Stimulating Hormone Reflex 0.307 uIU/mL (0.465-4.68)
[2021-01-24 12:26] LABS: Glucose Point of Care 102 (65-105)
[2021-01-24 12:50] LABS: Free T4 Free Thyroxine Reflex 1.34 ng/dL (0.78-2.19)
[2021-01-24 13:32] LABS: Total Triiodothyronine (T3) 1.02 NG/ML (0.97-1.69)
[2021-01-24] MEDS: LACTATED RINGERS 1,000 ML 75 ML IV CONT (14:45)
[2021-01-24 17:29] LABS: Glucose Point of Care 133 (65-105)
[2021-01-24] MEDS: REMDESIVIR 100 MG/NS 250 ML 100 MG/250 ML BAG 250 MG IVPB (21:34)
[2021-01-24 22:29] LABS: Glucose Point of Care 159 (65-105)
[2021-01-25] VITALS (22 sets, daily range): BP systolic 126–159; BP diastolic 64–86; PULSE 68–98; RESP 16–24; TEMP 35.7–38.3; O2SAT 88–97
--- NOTE | 2021-01-25 | ECHO_ITS ---
Patient Info Name: Karen Em Age: 55 years : 1965 Gender: Female Ht: 63 in Wt: 290 lbs BSA: 2.50 m2 HR: 80 bpm BP: 133 / 66 mmHg Heart Rhythm: Sinus Rhythm Technical Quality: Good Exam Date: 01/25/2021 1:49 PM Exam Location: [facility] Patient Status: Inpatient Admit Date: 01/24/2021 Staff Ordering Physician: Melissa Donaldson PA-C Warehouse Stocker: Jhon Marshall RDCS, RT Attending Provider: Melissa Donaldson PA-C Referring Physician: Mendoza SPRINGER; Exam Type: CA echo doppler color flow Study Info Indications J96.00 - Acute respiratory failure, unspecified whether with hypoxia or hypercapnia Complete two-dimensional, color flow and Doppler transthoracic echocardiogram is performed. Summary 1. Complete two-dimensional, color flow and Doppler transthoracic echocardiogram is performed. 2. Technically difficult examination because of patient obesity. 3. Grossly normal-appearing left ventricular systolic function. 4. Calcified mitral valve annulus. Left Ventricular Outflow Tract Name Value Normal LVOT 2D LVOT Diameter 2.0 cm LVOT Doppler LVOT Peak Velocity 140 cm/s LVOT Peak Gradient 8 mmHg LVOT Mean Gradient 5 mmHg LVOT VTI 29 cm LVOT VTI/AV VTI Ratio 1.0 LVOT Stroke Volume 93 ml LVOT CO 7.4 l/min LVOT CI 2.9 l/min/m2 Mitral Valve Name Value Normal MV Doppler MV Decel [place] 432 cm/s2 MV PHT 62 ms MV Area (PHT) 3.5 cm2 4.0-5.0 MV Diastolic Function MV E Peak Velocity 93 cm/s MV A Peak Velocity 104 cm/s MV E/A 0.9 MV Decel Time 214 ms MV Annular TDI MV Septal e' Velocity 6.8 cm/s >=8.0 MV E/e' (Septal) 13.7 <=8.0 MV Lateral e' Velocity 7.8 cm/s >=10.0 MV E/e' (Lateral) 11.8 <=8.0 MV e' Average 7.30 MV E/e' (Average) 12.8 Tricuspid Valve Name Value Normal TV Diastolic Function RV MPI 0.13 <=0.43 Aortic Valve
[2021-01-25] MEDS: IPRATROPIUM BR 0.02% INH SOLN 0.5 MG/2.5 ML VIAL INHALATION ×4 (01:50→20:27)
[2021-01-25] MEDS: ACETAMINOPHEN 325 MG TABLET 650 MG PO ×2 (02:35→08:30)
[2021-01-25] MEDS: HYDROcodone/acetaminophen (*CRX) 10-325 MG TABLET 1 TAB PO (03:52)
[2021-01-25] MEDS: LEVOTHYROXINE SODIUM 88 MCG TABLET PO (05:51)
[2021-01-25 06:20] LABS: Alanine Aminotransferase 30 U/L (4-35); Albumin Level 3.4 g/dL (3.5-5.1); Alkaline Phosphatase 66 U/L (38-126); Anion Gap 6 mmol/L (8-16); Aspartate Amino Transferase 41 U/L (14-36); Bilirubin,Total 0.3 mg/dL (0.2-1.3); Blood Urea Nitrogen 25 mg/dL (7-17); CRP 1.4 mg/dL (<1.0); Calcium 8.5 mg/dL (8.4-10.2); Carbon Dioxide 26 mmol/L (22-30); Chloride 106 mmol/L (98-107); Creatine Kinase 111 U/L (30-135); Estimated CRCL calculation 73 ml/min; Estimated Glomerular Filt Rate 57; Glucose 99 mg/dL (65-105); Lactate Dehydrogenase 687 U/L (313-618); Magnesium 1.6 mg/dL (1.6-2.3); Sodium 138 mmol/L (137-145)
[2021-01-25 06:29] LABS: Basophils Percent Auto 0.1 % (0.2-1.2); Hematocrit 37.3 % (37.0-47.0); Hemoglobin 11.9 g/dL (12.0-15.0); Immature Granulocyte Absolute 0.04 K/mm3 (0.00-0.031); Immature Granulocyte Percent A 0.4 % (0-0.5); Lymphocytes Absolute Auto 0.74 K/mm3 (0.9-3.2); Lymphocytes Percent Auto 8.1 % (18.3-44.2); Mean Corpuscular HGB Conc 31.9 g/dl (32-36); Mean Corpuscular Hemoglobin 27.9 pg (26-34); Mean Corpuscular Volume 87.6 fl (80-100); Monocytes Absolute Auto 0.6 K/mm3 (0.1-0.6); Neutrophils Absolute Auto 7.8 K/mm3 (1.3-6.7); Neutrophils Percent Auto 85.4 % (45.5-73.1); Platelet Count Result 190 k/mm3 (150-375); Red Blood Count 4.26 M/mm3 (4.2-5.4); Red Cell Distribution Width 14.1 % (11.5-14.5); White Blood Count 9.1 K/mm3 (4.5-10.0)
[2021-01-25 08:07] LABS: Glucose Point of Care 93 (65-105)
[2021-01-25] MEDS: BUDESONIDE RESPULE NEB 0.5 MG/2 ML AMP 1 MG INHALATION ×2 (08:38→20:27)
[2021-01-25] MEDS: PRAVASTATIN SODIUM 20 MG TABLET PO (08:41)
[2021-01-25] MEDS: FOLIC ACID 1 MG TABLET 3 MG PO (08:41)
[2021-01-25] MEDS: FENOFIBRATE,MICRONIZED 48 MG TABLET PO (08:41)
[2021-01-25] MEDS: PANTOPRAZOLE 40 MG TABLET PO (08:41)
[2021-01-25] MEDS: guaiFENesin 12 HR 600 MG TABCR 1200 MG PO ×2 (08:41→21:34)
[2021-01-25] MEDS: MONTELUKAST SODIUM 10 MG TABLET PO (08:41)
[2021-01-25] MEDS: ENOXAPARIN 40 MG/0.4 ML SYRINGE SUB-Q ×2 (08:42→21:34)
[2021-01-25] MEDS: LORATADINE 10 MG TABLET PO (08:42)
[2021-01-25] MEDS: CHOLECALCIFEROL 1,000 UNITS TABLET 4000 UNITS PO (08:42)
[2021-01-25] MEDS: cycloSPORINE 0.4 ML OPHTH SOLUTION 1 DROP EACH EYE ×2 (08:42→21:33)
[2021-01-25] MEDS: DEXAMETHASONE SOD PHOS INJ 4 MG/ML VIAL 6 MG IV PUSH (08:43)
[2021-01-25] MEDS: FLUTICASONE PROPIONATE 0.05% NA SPR 16 GM BTL (*BKC) 1 SPRAY NASAL (08:44)
--- NOTE | 2021-01-25 09:00 | PC.NURSE ---
Patient c/o of chest pain on right side chest radiating to back. Melissa TODD notified . Orders received-Stat EKG and troponin.
--- NOTE | 2021-01-25 09:03 | ECG_ITS ---
Measurements Intervals [place] Rate: 98 P: 33 DE: 156 QRS: 23 QRSD: 82 T: 30 QT: 331 QTc: 423 Interpretive Statements SINUS RHYTHM WITH SINUS ARRHYTHMIA BORDERLINE R WAVE PROGRESSION, ANTERIOR LEADS BASELINE ARTIFACT- AVR, AVL, AVF BORDERLINE ECG Electronically Signed On 01-25-2021 9:47:23 CDT by Jake Cassidy D.O.
[2021-01-25 09:50] LABS: Troponin I < 0.012 ng/mL (0.000-0.034)
--- NOTE | 2021-01-25 10:02 | PM.PNPUL ---
Progress Note: A&P Assessment and Plan (1) Asthma exacerbation: Code(s): J45.901 - Unspecified asthma with (acute) exacerbation Status: Acute Assessment and Plan: 01/24 continue Pulmicort 1 mg q.12 hours nebulized, continue ipratropium 0.5 mg q.6 hours nebulized, continue albuterol 2.5 mg Q 6 hours p.r.n. 01/25 Will change albuterol to Q 6 standing. (2) Pneumonia due to COVID-19 virus: Code(s): U07.1 - COVID-19; J12.82 - Pneumonia due to coronavirus disease 2019 Status: Acute Assessment and Plan: Symptoms startted 01/19 and Covid positive 01/22. Son COVID positive 2 weeks ago and recovered. Remdesivir and dexamethasone started on 01/23. Convalescent plasma ordered 01/25. 01/25 Worsening oxygenation this morning and now requiring 2 L NC for desats on RA to 89%. Convalescent plasma ordered. CT angiopgram for positive D Dimer and Echo to assess LV function later today. 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 IgG levels are still pending. 01/25 From 01/23 IgA 60 (low, normal 70-400), from 01/23 IgM 37 (low, normal 40-230), IgG pending. Convalescent plasma later today. Discussed plan with Melissa Donaldson Subjective Date/time seen: 01/25/21 10:02 Interval history: 01/24 Interval history: she feels a bit more wheezy today but overall no significant change since yesterday. She is in no acute respiratory distress. She received a dose of IVIG yesterday and was continued on Remdesivir and dexamethasone. 01/25 Required 2 L NC this mornining for desats on room air to 88%. Feels worse today with body aches, SOB. Convalescent plasma ordered. Echo and CTA to be done later today. Review of Systems Review of Systems: All systems reviewed & are unremarkable except as noted in HPI and below Constitutional: Constitutional: Reports fatigue and Reports weakness Eyes: Eyes: Reports no additional eye complaints ENT: Reports sinus pressure Cardiovascular: Cardiovascular: Denies chest pain Respiratory: Respiratory: Reports chest congestion, Reports cough, Denies hemoptysis, Reports dyspnea and Reports dyspnea on exertion Gastrointestinal: Gastrointestinal: Denies abdominal pain Genitourinary: Genitourinary: Denies flank pain Musculoskeletal: Musculoskeletal: Reports no additional musculoskeletal complaints Integumentary/Breasts: Skin/Breast: Reports system reviewed and no additional complaints, except as docu Neurologic: Reports system reviewed and no additional complaints, except as documented and Reports behavioral changes Psychiatric: Psychiatric: Reports no additional psychiatric complaints and Reports behavioral changes Endocrine: Endocrine: Reports no additional endocrine complaints Exam Const: General: no acute distress Eyes: General: appearance normal, both eyes and all related structures Neck: Neck: no JVD Resp: Auscultation: wheezes Cardio: Rate: regular rate GI: Inspection: non-distended GI Palp: Yes Soft to palpation, No Firmness to palpation present (GI) and No Tenderness to palpation present (GI) Neuro: Speech: normal speech Motor exam (neuro): Normal motor muscle tone present throughout Extrem: General: no edema Psych: Mental Status: mental status grossly normal Affect: normal affect Objective Data Vital Signs Vital Signs: Vital Signs - 24 hr 01/24/21 12:00 01/24/21 14:07 01/24/21 14:15 Temperature 36.6 C Pulse Rate 87 77 78 Respiratory Rate 20 20 20 Blood Pressure 120/60 Pulse Oximetry 95 01/24/21 16:00 01/24/21 20:00 01/24/21 20:02 Temperature 36.8 C 37.1 C Pulse Rate 80 75 80 Respiratory Rate 16 20 20 Blood Pressure 135/62 143/79 H Pulse Oximetry 100 100 01/25/21 00:00 01/25/21 01:51 01/25/21 04:00 Temperature 36.6 C 37.7 C H Pulse
--- NOTE | 2021-01-25 10:24 | P.PNIM_ITS ---
Progress Note: A&P Assessment and Plan (1) Pneumonia due to COVID-19 virus: Code(s): U07.1 - COVID-19; J12.82 - Pneumonia due to coronavirus disease 2019 Status: Acute Assessment and Plan: Symptoms started 2-3 days prior to admission. She was exposed to her son who was positive 2 weeks ago. SARS-CoV-2 testing performed 01/22/21 is positive. CXR demonstrates patchy bilateral airspace disease. * Pulmonology consulted given complexity due to underlying pulmonary disease. Appreciate pulmonology recommendations. * Continue remdesivir - initiated 01/22, day 4 * Continue dexamethasone - initiated 01/22, day 02/06 * Convalescent plasma ordered per pulmonology today 01/25 * Continue supportive care with bronchodilators, expectorant, incentive spirometry, PEP therapy * Trend acute phase reactants * Continue isolation precautions (2) Acute respiratory failure with hypoxia: Code(s): J96.01 - Acute respiratory failure with hypoxia Status: Resolved Assessment and Plan: Per ER documentation, oxygen saturation was witnessed dropping between 87 and 92%. Secondary to COVID-19 pneumonia. Oxygen requirements increased to 2 liters per nasal cannula today. * Discussed with pulmonology and will check CTA chest given hypoxia, positive D- dimer and echocardiogram given hypoxia * Continue supplemental oxygen as needed to maintain oxygen saturation >90%, wean as tolerated * Further plan outlined below (3) LISA (acute kidney injury): Code(s): N17.9 - Acute kidney failure, unspecified Status: Acute Assessment and Plan: Cr with mild increase from 1.2 on admission to 1.4 01/24. Baseline 0.8-1.0. BUN 19. Cr has improved to 1.0 today. Likely pre-renal given rapid improvement with IV fluids. * Hold metformin * Discontinue IV fluids * Avoid nephrotoxins and renally dose medications * Follow trend (4) Asthma with COPD: Code(s): J44.9 - Chronic obstructive pulmonary disease, unspecified Status: Acute Assessment and Plan: She has wheezing concerning for component of exacerbation of her COPD/asthma due to her lower respiratory tract infection. Wheezing has improved today. * Pulmonology following with management deferred to pulmonology * Continue dexamethasone * Continue albuterol, ipratropium, budesonide, montelukast (5) YOON (obstructive sleep apnea): Code(s): G47.33 - Obstructive sleep apnea (adult) (pediatric) Status: Acute Assessment and Plan: Continue CPAP titrated to home settings with filter while inpatient. (6) Hypothyroid: Code(s): E03.9 - Hypothyroidism, unspecified Status: Acute Assessment and Plan: TSH low at 0.307 and free T4 and total T3 normal consistent with subclinical hypothyroidism. * Continue levothyroxine * Recommend repeat TSH w/reflex in 4 weeks after resolution of acute illness (7) Prediabetes: Code(s): R73.03 - Prediabetes Status: Chronic Assessment and Plan: Hemoglobin A1c 5.3%. Blood sugars are reasonable with most recent 93. * Hold metformin * Continue ACHS glucose monitoring, sliding scale insulin, and hypoglycemia protocol (8) Rheumatoid arthritis: Code(s): M06.9 - Rheumatoid arthritis, unspecified Status: Chronic Assessment and Plan: Not in acute exacerbation. * Leflunomide held given acute COVID-19 infection and will not resume until at least 7-14 days have passes after symptom resolution * Continue hydroxychloroquine, m
--- NOTE | 2021-01-25 10:24 | PM.IMPN ---
Progress Note: A&P Assessment and Plan (1) Pneumonia due to COVID-19 virus: Code(s): U07.1 - COVID-19; J12.82 - Pneumonia due to coronavirus disease 2019 Status: Acute Assessment and Plan: Symptoms started 2-3 days prior to admission. She was exposed to her son who was positive 2 weeks ago. SARS-CoV-2 testing performed 01/22/21 is positive. CXR demonstrates patchy bilateral airspace disease. Pulmonology consulted given complexity due to underlying pulmonary disease. Appreciate pulmonology recommendations. Continue remdesivir - initiated 01/22, day 4 Continue dexamethasone - initiated 01/22, day 02/06 Convalescent plasma ordered per pulmonology today 01/25 Continue supportive care with bronchodilators, expectorant, incentive spirometry, PEP therapy Trend acute phase reactants Continue isolation precautions (2) Acute respiratory failure with hypoxia: Code(s): J96.01 - Acute respiratory failure with hypoxia Status: Resolved Assessment and Plan: Per ER documentation, oxygen saturation was witnessed dropping between 87 and 92%. Secondary to COVID-19 pneumonia. Oxygen requirements increased to 2 liters per nasal cannula today. Discussed with pulmonology and will check CTA chest given hypoxia, positive D-dimer and echocardiogram given hypoxia Continue supplemental oxygen as needed to maintain oxygen saturation >90%, wean as tolerated Further plan outlined below (3) LISA (acute kidney injury): Code(s): N17.9 - Acute kidney failure, unspecified Status: Acute Assessment and Plan: Cr with mild increase from 1.2 on admission to 1.4 01/24. Baseline 0.8-1.0. BUN 19. Cr has improved to 1.0 today. Likely pre-renal given rapid improvement with IV fluids. Hold metformin Discontinue IV fluids Avoid nephrotoxins and renally dose medications Follow trend (4) Asthma with COPD: Code(s): J44.9 - Chronic obstructive pulmonary disease, unspecified Status: Acute Assessment and Plan: She has wheezing concerning for component of exacerbation of her COPD/asthma due to her lower respiratory tract infection. Wheezing has improved today. Pulmonology following with management deferred to pulmonology Continue dexamethasone Continue albuterol, ipratropium, budesonide, montelukast (5) YOON (obstructive sleep apnea): Code(s): G47.33 - Obstructive sleep apnea (adult) (pediatric) Status: Acute Assessment and Plan: Continue CPAP titrated to home settings with filter while inpatient. (6) Hypothyroid: Code(s): E03.9 - Hypothyroidism, unspecified Status: Acute Assessment and Plan: TSH low at 0.307 and free T4 and total T3 normal consistent with subclinical hypothyroidism. Continue levothyroxine Recommend repeat TSH w/reflex in 4 weeks after resolution of acute illness (7) Prediabetes: Code(s): R73.03 - Prediabetes Status: Chronic Assessment and Plan: Hemoglobin A1c 5.3%. Blood sugars are reasonable with most recent 93. Hold metformin Continue ACHS glucose monitoring, sliding scale insulin, and hypoglycemia protocol (8) Rheumatoid arthritis: Code(s): M06.9 - Rheumatoid arthritis, unspecified Status: Chronic Assessment and Plan: Not in acute exacerbation. 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 Moody and receives IVIG q4 months. Immunoglobulins ordered with low IgA, IgM. IgG pending. She received 1 dose of IVIG 01/23/21 (10) Back pain: Code(s): M54.9 - Dorsalgia, unspecified Status: Acute Assessme
[2021-01-25] MEDS: ONDANSETRON INJ 4 MG/2 ML VIAL IV PUSH (10:59)
[2021-01-25 12:36] LABS: Glucose Point of Care 117 (65-105)
[2021-01-25] MEDS: SODIUM CHLORIDE 0.9% IV 250 ML 30 ML IV CONT (13:10)
--- NOTE | 2021-01-25 13:10 | PC.NURSE ---
Linda Raymond RN verified blood product at 01/25/21 at 1310.
[2021-01-25 17:59] LABS: Glucose Point of Care 171 (65-105)
[2021-01-25] MEDS: ALBUTEROL SULFATE NEB 2.5 MG/0.5 ML INH INHALATION (20:27)
[2021-01-25 22:07] LABS: Glucose Point of Care 160 (65-105)
[2021-01-25] MEDS: REMDESIVIR 100 MG/NS 250 ML 100 MG/250 ML BAG 250 MG IVPB (22:23)
[2021-01-26] VITALS (18 sets, daily range): BP systolic 110–172; BP diastolic 59–83; PULSE 67–86; RESP 18–22; TEMP 36.5–36.9; O2SAT 92–96
[2021-01-26] MEDS: ALBUTEROL SULFATE NEB 2.5 MG/0.5 ML INH INHALATION ×4 (01:42→20:31)
[2021-01-26] MEDS: IPRATROPIUM BR 0.02% INH SOLN 0.5 MG/2.5 ML VIAL INHALATION ×4 (01:43→20:30)
[2021-01-26] MEDS: LEVOTHYROXINE SODIUM 88 MCG TABLET PO (06:01)
[2021-01-26 06:07] LABS: Basophils Percent Auto 0.1 % (0.2-1.2); Hematocrit 35.7 % (37.0-47.0); Hemoglobin 11.2 g/dL (12.0-15.0); Immature Granulocyte Absolute 0.06 K/mm3 (0.00-0.031); Immature Granulocyte Percent A 0.6 % (0-0.5); Lymphocytes Absolute Auto 0.77 K/mm3 (0.9-3.2); Lymphocytes Percent Auto 7.1 % (18.3-44.2); Mean Corpuscular HGB Conc 31.4 g/dl (32-36); Mean Corpuscular Hemoglobin 27.3 pg (26-34); Mean Corpuscular Volume 87.1 fl (80-100); Mean Platelet Volume 10.7 fl (7.4-10.4); Monocytes Absolute Auto 0.6 K/mm3 (0.1-0.6); Monocytes Percent Auto 5.8 % (2.6-8.5); Neutrophils Absolute Auto 9.4 K/mm3 (1.3-6.7); Neutrophils Percent Auto 86.4 % (45.5-73.1); Platelet Count Result 181 k/mm3 (150-375); White Blood Count 10.8 K/mm3 (4.5-10.0)
[2021-01-26 06:28] LABS: Alanine Aminotransferase 30 U/L (4-35); Albumin Level 3.4 g/dL (3.5-5.1); Alkaline Phosphatase 67 U/L (38-126); Anion Gap 4 mmol/L (8-16); Aspartate Amino Transferase 32 U/L (14-36); Bilirubin,Total 0.4 mg/dL (0.2-1.3); Blood Urea Nitrogen 19 mg/dL (7-17); Calcium 8.6 mg/dL (8.4-10.2); Carbon Dioxide 31 mmol/L (22-30); Chloride 105 mmol/L (98-107); Creatine Kinase 55 U/L (30-135); Estimated CRCL calculation 73 ml/min; Estimated Glomerular Filt Rate 57; Glucose 106 mg/dL (65-105); Lactate Dehydrogenase 600 U/L (313-618); Magnesium 1.9 mg/dL (1.6-2.3); Sodium 140 mmol/L (137-145)
[2021-01-26 06:36] LABS: CRP 16.7 mg/dL (<1.0); Potassium 3.8 mmol/L (3.4-5.0)
[2021-01-26] MEDS: BUDESONIDE RESPULE NEB 0.5 MG/2 ML AMP 1 MG INHALATION ×2 (07:56→20:30)
[2021-01-26 08:09] LABS: Glucose Point of Care 80 (65-105)
[2021-01-26] MEDS: MONTELUKAST SODIUM 10 MG TABLET PO (08:27)
[2021-01-26] MEDS: LOSARTAN POTASSIUM 50 MG TABLET 100 MG PO (08:27)
[2021-01-26] MEDS: FOLIC ACID 1 MG TABLET 3 MG PO (08:28)
[2021-01-26] MEDS: ENOXAPARIN 40 MG/0.4 ML SYRINGE SUB-Q ×2 (08:28→20:55)
[2021-01-26] MEDS: FENOFIBRATE,MICRONIZED 48 MG TABLET PO (08:28)
[2021-01-26] MEDS: guaiFENesin 12 HR 600 MG TABCR 1200 MG PO ×2 (08:28→20:55)
[2021-01-26] MEDS: PANTOPRAZOLE 40 MG TABLET PO (08:28)
[2021-01-26] MEDS: LORATADINE 10 MG TABLET PO (08:28)
[2021-01-26] MEDS: cycloSPORINE 0.4 ML OPHTH SOLUTION 1 DROP EACH EYE ×2 (08:29→20:56)
[2021-01-26] MEDS: CHOLECALCIFEROL 1,000 UNITS TABLET 4000 UNITS PO (08:29)
[2021-01-26] MEDS: DEXAMETHASONE SOD PHOS INJ 4 MG/ML VIAL 6 MG IV PUSH (08:29)
[2021-01-26] MEDS: FLUTICASONE PROPIONATE 0.05% NA SPR 16 GM BTL (*BKC) 1 SPRAY NASAL (08:29)
[2021-01-26] MEDS: PRAVASTATIN SODIUM 20 MG TABLET PO (08:30)
--- NOTE | 2021-01-26 11:28 | PM.PNPUL ---
Progress Note: A&P Assessment and Plan (1) Asthma exacerbation: Code(s): J45.901 - Unspecified asthma with (acute) exacerbation Status: Acute Assessment and Plan: 01/24 continue Pulmicort 1 mg q.12 hours nebulized, continue ipratropium 0.5 mg q.6 hours nebulized, continue albuterol 2.5 mg Q 6 hours p.r.n. 01/25 Will change albuterol to Q 6 standing. 01/26 No wheezes on budesonide neb 1 mg Q 12, albuterol 2.5 mg neb Q 6 and ipratroprium neb 0.5 mg Q 6. (2) Pneumonia due to COVID-19 virus: Code(s): U07.1 - COVID-19; J12.82 - Pneumonia due to coronavirus disease 2019 Status: Acute Assessment and Plan: Symptoms started 01/19 and Covid positive 01/22. Son was COVID positive 2 weeks ago and recovered. Remdesivir and dexamethasone started on 01/23. Convalescent plasma given 01/25. 01/25 Worsening oxygenation this morning and now requiring 2 L NC for desats on RA to 89%. Convalescent plasma ordered. CT angio negative for PE. Echo with grossly normal LV function. 01/26 Continue remdesivir and dexamethasone (today is day 4 of 10). On 1 L NC. 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 IgG levels are still pending. 01/25 From 01/23 IgA 60 (low, normal 70-400), from 01/23 IgM 37 (low, normal 40-230), IgG pending. Convalescent COVID plasma given today. (4) YOON (obstructive sleep apnea): Code(s): G47.33 - Obstructive sleep apnea (adult) (pediatric) Status: Acute Assessment and Plan: 01/26 Patient wears CPAP 7 RA for YOON for many years. Will place on home unit with 2 L [facility]. Subjective Date/time seen: 01/26/21 11:28 Interval history: Patietn with H/O asthma and YOON on CPAP 7 with RA at night at home. Presented with COVID pneumonia on 01/24 01/24 Interval history: she feels a bit more wheezy today but overall no significant change since yesterday. She is in no acute respiratory distress. She received a dose of IVIG yesterday and was continued on Remdesivir and dexamethasone. 01/25 Required 2 L NC this morning for desats on room air to 88%. Feels worse today with body aches, SOB. Convalescent plasma given. Echo was TDS with grossly normla LV EF (no numbers given), unable to assess valves, CTA without PE, bilateral patchy GGI with more consolidated areas in bases R>L. No fibrosis or honeycombing noted. 01/26 Patient minimally improved, less SOB, less cough, less wheezing and on 1 L NC with sats 92%. Review of Systems Review of Systems: All systems reviewed & are unremarkable except as noted in HPI and below Constitutional: Constitutional: Reports fatigue and Reports weakness Eyes: Eyes: Reports no additional eye complaints ENT: Reports sinus pressure Cardiovascular: Cardiovascular: Denies chest pain, Reports dyspnea and Reports dyspnea on exertion Respiratory: Respiratory: Reports chest congestion, Reports cough, Denies hemoptysis, Reports dyspnea and Reports dyspnea on exertion Gastrointestinal: Gastrointestinal: Denies abdominal pain Genitourinary: Genitourinary: Denies flank pain Musculoskeletal: Musculoskeletal: Reports no additional musculoskeletal complaints Integumentary/Breasts: Skin/Breast: Reports system reviewed and no additional complaints, except as docu Neurologic: Reports system reviewed and no additional complaints, except as documented and Reports weakness Psychiatric: Psychiatric: Reports no additional psychiatric complaints Endocrine: Endocrine: Reports no additional endocrine complaints and Reports fatigue Exam Const: General: no acute distress Orientation/consciousness: oriented to person, oriented to place and oriented to time HENMT: Head: normal to inspection Ears: hearing grossly normal bilaterally Mouth: Yes Normal oral and palatal mucosa p
[2021-01-26 11:52] LABS: Glucose Point of Care 161 (65-105)
--- NOTE | 2021-01-26 14:54 | PM.IMPN ---
Progress Note: A&P Assessment and Plan (1) Acute respiratory failure with hypoxia: Code(s): J96.01 - Acute respiratory failure with hypoxia Status: Resolved Assessment and Plan: Per ER documentation, she was noted to be hypoxic down to 87%. [place] to be secondary to COVID-19 pneumonia. She is currently requiring 1 L per nasal cannula at this time. CTA on 01/25 negative for PE but did demonstrate moderate bilateral airspace disease consistent with COVID pneumonia. Echocardiogram evaluated given hypoxia with normal LV systolic function and no additional acute findings. Continue supplemental oxygen as needed to maintain oxygen saturation >90%, wean as tolerated Pulmonology has been consulted given history, with whom she is established. Input is appreciated. Further plan outlined below (2) Pneumonia due to COVID-19 virus: Code(s): U07.1 - COVID-19; J12.82 - Pneumonia due to coronavirus disease 2019 Status: Acute Assessment and Plan: Symptoms started 2-3 days prior to admission. She was exposed to her son who was positive 2 weeks ago. SARS-CoV-2 testing performed 01/22/21 is positive. CXR demonstrates patchy bilateral airspace disease. Continue remdesivir - initiated 01/22. She will complete 5 days of therapy today. Continue dexamethasone - initiated 01/22 Appreciate pulmonology input Convalescent plasma administered on 01/25 Supportive care to include bronchodilators, expectorants, incentive spirometry, PEP therapy Trend acute phase reactants Continue isolation precautions (3) LISA (acute kidney injury): Code(s): N17.9 - Acute kidney failure, unspecified Status: Acute Assessment and Plan: Baseline creatinine is 0.8-1.0. Cr with mild increase from 1.2 on admission to 1.4 on 01/24. BUN 19. Cr has improved to 1.0 today. Suspect this was pre-renal given rapid improvement with IV fluids. IV fluids discontinued as she is tolerating p.o. intake and renal function has improved to baseline Avoid nephrotoxins and renally dose medications Follow trend Metformin on hold (4) Asthma with COPD: Code(s): J44.9 - Chronic obstructive pulmonary disease, unspecified Status: Acute Assessment and Plan: She had wheezing concerning for component of exacerbation of her COPD/asthma due to her lower respiratory tract infection. She is still having diffuse wheezing but feels this has improved Pulmonology following and input is appreciated. Continue dexamethasone Continue albuterol and ipratropium nebs, budesonide, montelukast (5) YOON (obstructive sleep apnea): Code(s): G47.33 - Obstructive sleep apnea (adult) (pediatric) Status: Acute Assessment and Plan: Continue CPAP titrated to home settings with 2 L O2 bleed in while inpatient. (6) Hypothyroid: Code(s): E03.9 - Hypothyroidism, unspecified Status: Acute Assessment and Plan: TSH low at 0.307 and free T4 and total T3 normal consistent with subclinical hypothyroidism. Continue levothyroxine at current dose Recommend repeat TSH w/reflex in 4 weeks after resolution of acute illness (7) Prediabetes: Code(s): R73.03 - Prediabetes Status: Chronic Assessment and Plan: Hemoglobin A1c is 5.3%. Blood sugars are reasonable with most recent 106. Hold metformin Continue ACHS glucose monitoring, sliding scale insulin, and hypoglycemia protocol (8) Rheumatoid arthritis: Code(s): M06.9 - Rheumatoid arthritis, unspecified Status: Chronic Assessment and Plan: Not in acute exacerbation. 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
[2021-01-26] MEDS: ACETAMINOPHEN 325 MG TABLET 650 MG PO (15:06)
[2021-01-26 17:02] LABS: Glucose Point of Care 162 (65-105)
[2021-01-26] MEDS: DOCUSATE SODIUM 100 MG CAPSULE PO (20:55)
[2021-01-26] MEDS: REMDESIVIR 100 MG/NS 250 ML 100 MG/250 ML BAG 250 MG IVPB (20:56)
[2021-01-26 21:07] LABS: Glucose Point of Care 166 (65-105)
[2021-01-26] MEDS: HYDROcodone/acetaminophen (*CRX) 10-325 MG TABLET 1 TAB PO (22:10)
[2021-01-27] VITALS (18 sets, daily range): BP systolic 118–152; BP diastolic 56–75; PULSE 66–91; RESP 18–24; TEMP 35.4–36.9; O2SAT 93–99
[2021-01-27] MEDS: ALBUTEROL SULFATE NEB 2.5 MG/0.5 ML INH INHALATION ×4 (03:08→21:57)
[2021-01-27] MEDS: IPRATROPIUM BR 0.02% INH SOLN 0.5 MG/2.5 ML VIAL INHALATION ×4 (03:08→21:57)
[2021-01-27] MEDS: LEVOTHYROXINE SODIUM 88 MCG TABLET PO (06:09)
[2021-01-27] MEDS: HYDROcodone/acetaminophen (*CRX) 10-325 MG TABLET 1 TAB PO (06:11)
[2021-01-27 06:47] LABS: Hematocrit 37.5 % (37.0-47.0); Hemoglobin 11.9 g/dL (12.0-15.0); Mean Corpuscular HGB Conc 31.7 g/dl (32-36); Mean Corpuscular Hemoglobin 27.9 pg (26-34); Mean Corpuscular Volume 87.8 fl (80-100); Mean Platelet Volume 10.9 fl (7.4-10.4); Platelet Count Result 204 k/mm3 (150-375); Red Blood Count 4.27 M/mm3 (4.2-5.4); White Blood Count 12.8 K/mm3 (4.5-10.0)
[2021-01-27 07:03] LABS: Alanine Aminotransferase 24 U/L (4-35); Albumin Level 3.5 g/dL (3.5-5.1); Alkaline Phosphatase 70 U/L (38-126); Anion Gap 3 mmol/L (8-16); Aspartate Amino Transferase 23 U/L (14-36); Bilirubin,Total 0.4 mg/dL (0.2-1.3); Blood Urea Nitrogen 19 mg/dL (7-17); Calcium 8.6 mg/dL (8.4-10.2); Carbon Dioxide 29 mmol/L (22-30); Chloride 105 mmol/L (98-107); Estimated CRCL calculation 80 ml/min; Estimated Glomerular Filt Rate > 60; Glucose 104 mg/dL (65-105); Potassium 3.7 mmol/L (3.4-5.0); Sodium 137 mmol/L (137-145)
--- NOTE | 2021-01-27 07:59 | PM.PNPUL ---
Progress Note: A&P Assessment and Plan (1) Asthma exacerbation: Code(s): J45.901 - Unspecified asthma with (acute) exacerbation Status: Acute Assessment and Plan: Home medicactions: Symbicort 160/4.5 at 2 puffs BID, spireva respimat 2.5 Q am and albuterol inhaler and neb rescue Q 4 PRN 01/24 continue Pulmicort 1 mg q.12 hours nebulized, continue ipratropium 0.5 mg q.6 hours nebulized, continue albuterol 2.5 mg Q 6 hours p.r.n. 01/25 Will change albuterol to Q 6 standing. 01/26 No wheezes on budesonide neb 1 mg Q 12, albuterol 2.5 mg neb Q 6 and ipratroprium neb 0.5 mg Q 6. 01/27 No wheezes continue budesonide neb 1 mg Q 12, albuterol 2.5 mg neb Q 6 and ipratroprium neb 0.5 mg Q 6. When stable for discharge place on Symbicort 160/4.5 at 2 puffs BID, spireva respimat 2.5 Q am and albuterol inhaler and neb rescue Q 4 PRN (2) Pneumonia due to COVID-19 virus: Code(s): U07.1 - COVID-19; J12.82 - Pneumonia due to coronavirus disease 2019 Status: Acute Assessment and Plan: Symptoms started 01/19 and Covid positive 01/22. Son was COVID positive 2 weeks ago and recovered. Remdesivir and dexamethasone started on 01/23. Convalescent plasma given 01/25. 01/25 Worsening oxygenation this morning and now requiring 2 L NC for desats on RA to 89%. Convalescent plasma ordered. CT angio negative for PE. Echo with grossly normal LV function. 01/26 Continue remdesivir and dexamethasone (today is day 4 of 10). On 1 L NC. 01/27 Continue remdesivir and dexamethasone (today is day 5 of 10). On 1 L NC and stable for last 48 hours, wean as tolerated. Continue for 10 days as she is immunocompromised. I called pharmacy who will enter order for another 5 days. Obtain CXR prior to discharge to serve as baseline for follow up in future. Eventually she will need home O2 assessment day prior to or on day of discharge. 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 IgG levels are still pending. 01/25 From 01/23 IgA 60 (low, normal 70-400), from 01/23 IgM 37 (low, normal 40-230), IgG pending. Convalescent COVID plasma given today. (4) YOON (obstructive sleep apnea): Code(s): G47.33 - Obstructive sleep apnea (adult) (pediatric) Status: Acute Assessment and Plan: 01/26 Patient wears CPAP 7 RA for YOON for many years. Will place on home unit with 2 L bleed in tonight. 01/27 Tolerated home unit CPAP 7 with 3L bleed in, sats 94%. Wean as tolerated to keep sats > 92 at night. On night prior to discharge she should have Apnea link on room air to determine if she qualifies for nocturnal oxygen. Follow up in pulmonary clinic 2-3 weeks after discharge. Will sign off for now, call with any questions. Subjective Date/time seen: 01/27/21 07:59 Interval history: Interval history: Patient with H/O asthma and YOON on CPAP 7 with RA at night at home. Presented with COVID pneumonia on 01/24 01/24 Interval history: she feels a bit more wheezy today but overall no significant change since yesterday. She is in no acute respiratory distress. She received a dose of IVIG yesterday and was continued on Remdesivir and dexamethasone. 01/25 Required 2 L NC this morning for desats on room air to 88%. Feels worse today with body aches, SOB. Convalescent plasma given. Echo was TDS with grossly normla LV EF (no numbers given), unable to assess valves, CTA without PE, bilateral patchy GGI with more consolidated areas in bases R>L. No fibrosis or honeycombing noted. 01/26 Patient minimally improved, less SOB, less cough, less wheezing and on 1 L NC with sats 92%. 01/27 Wore home CPAP with 3 L bleed in last night, saturations 94%. Now on 1 L with sats 92%. Slow improvement but still NAV[place]O. Review of Systems Review of Systems: All systems reviewed & are unremark
[2021-01-27 08:15] LABS: CRP 16.2 mg/dL (<1.0)
[2021-01-27] MEDS: BUDESONIDE RESPULE NEB 0.5 MG/2 ML AMP 1 MG INHALATION ×2 (08:23→21:57)
[2021-01-27 08:48] LABS: Glucose Point of Care 92 (65-105)
--- NOTE | 2021-01-27 08:59 | PM.IMPN ---
Progress Note: A&P Assessment and Plan (1) Acute respiratory failure with hypoxia: Code(s): J96.01 - Acute respiratory failure with hypoxia Status: Resolved Assessment and Plan: Per ER documentation, she was noted to be hypoxic down to 87%. [place] to be secondary to COVID-19 pneumonia. She is currently requiring 1 L per nasal cannula at this time. CTA on 01/25 negative for PE but did demonstrate moderate bilateral airspace disease consistent with COVID pneumonia. Echocardiogram evaluated given hypoxia with normal LV systolic function and no additional acute findings. Continue supplemental oxygen as needed to maintain oxygen saturation >90%, wean as tolerated She will need home O2 eval prior to discharge. She will need outpatient pulmonology follow-up in 2-3 weeks (2) Pneumonia due to COVID-19 virus: Code(s): U07.1 - COVID-19; J12.82 - Pneumonia due to coronavirus disease 2019 Status: Acute Assessment and Plan: Symptoms started 2-3 days prior to admission. She was exposed to her son who was positive 2 weeks ago. SARS-CoV-2 testing performed 01/22/21 is positive. CXR demonstrates patchy bilateral airspace disease. Pulmonology following given complex history of lung disease. Input is appreciated. Continue remdesivir for a total of 10 days given immunocompromised status. Discussed with Dr. Maxwell (Pulmonology). Started on 01/22. Continue dexamethasone for 10 days. Convalescent plasma administered on 01/25 Supportive care to include bronchodilators, expectorants, incentive spirometry, PEP therapy Trend acute phase reactants Continue isolation precautions Repeat CXR prior to discharge per pulmonology recommendations (3) LISA (acute kidney injury): Code(s): N17.9 - Acute kidney failure, unspecified Status: Acute Assessment and Plan: Baseline creatinine is 0.8-1.0. Cr with mild increase from 1.2 on admission to 1.4 on 01/24. Cr has improved to 0.9 today. Suspect this was pre-renal given rapid improvement with IV fluids. IV fluids discontinued as she is tolerating p.o. intake and renal function has improved to baseline Continue to monitor renal function closely. Avoid nephrotoxins and renally dose medications Metformin on hold (4) Asthma with COPD: Code(s): J44.9 - Chronic obstructive pulmonary disease, unspecified Status: Acute Assessment and Plan: She had wheezing concerning for component of exacerbation of her COPD/asthma due to her lower respiratory tract infection. She still has faint anterior and posterior wheezes, but overall this has improved. Pulmonology following and input is appreciated. Continue dexamethasone Continue albuterol and ipratropium nebs, budesonide, montelukast (5) YOON (obstructive sleep apnea): Code(s): G47.33 - Obstructive sleep apnea (adult) (pediatric) Status: Acute Assessment and Plan: Continue CPAP titrated to home settings with 2 L O2 bleed in while inpatient. Per pulmonology recommendations, will repeat apnea link the night prior to discharge to determine if she qualifies for nocturnal O2 (6) Hypothyroid: Code(s): E03.9 - Hypothyroidism, unspecified Status: Acute Assessment and Plan: TSH low at 0.307 and free T4 and total T3 normal consistent with subclinical hypothyroidism. Continue levothyroxine at current dose Recommend repeat TSH w/reflex in 4 weeks after resolution of acute illness (7) Prediabetes: Code(s): R73.03 - Prediabetes Status: Chronic Assessment and Plan: Hemoglobin A1c is 5.3%. Blood sugars are reasonable with most recent 104. Hold metformin Continue ACHS glucose monitoring, sliding scale insulin, and hypoglycemia protocol (8) Rheumatoid arthritis: Code(s): M06.9 - Rheumatoid arthritis, unspecified Status: Chronic Assessment and Plan: Not in acute exacerbation. Leflunomide
[2021-01-27] MEDS: CHOLECALCIFEROL 1,000 UNITS TABLET 4000 UNITS PO (10:03)
[2021-01-27] MEDS: cycloSPORINE 0.4 ML OPHTH SOLUTION 1 DROP EACH EYE ×2 (10:03→22:07)
[2021-01-27] MEDS: DEXAMETHASONE SOD PHOS INJ 4 MG/ML VIAL 6 MG IV PUSH (10:03)
[2021-01-27] MEDS: DOCUSATE SODIUM 100 MG CAPSULE PO ×2 (10:04→22:01)
[2021-01-27] MEDS: FENOFIBRATE,MICRONIZED 48 MG TABLET PO (10:05)
[2021-01-27] MEDS: ENOXAPARIN 40 MG/0.4 ML SYRINGE SUB-Q ×2 (10:05→22:02)
[2021-01-27] MEDS: LOSARTAN POTASSIUM 50 MG TABLET 100 MG PO (10:06)
[2021-01-27] MEDS: FLUTICASONE PROPIONATE 0.05% NA SPR 16 GM BTL (*BKC) 1 SPRAY NASAL (10:06)
[2021-01-27] MEDS: guaiFENesin 12 HR 600 MG TABCR 1200 MG PO ×2 (10:07→22:03)
[2021-01-27] MEDS: LORATADINE 10 MG TABLET PO (10:07)
[2021-01-27] MEDS: FOLIC ACID 1 MG TABLET 3 MG PO (10:08)
[2021-01-27] MEDS: PANTOPRAZOLE 40 MG TABLET PO (10:08)
[2021-01-27] MEDS: MONTELUKAST SODIUM 10 MG TABLET PO (10:08)
[2021-01-27] MEDS: PRAVASTATIN SODIUM 20 MG TABLET PO (10:09)
[2021-01-27] MEDS: polyethylene glycoL 3350 17 GM POWD.PACK PO (10:11)
[2021-01-27 13:03] LABS: Glucose Point of Care 140 (65-105)
[2021-01-27 13:53] LABS: Immunoglobulin G 560 mg/dL (700-1600)
[2021-01-27 17:48] LABS: Glucose Point of Care 143 (65-105)
[2021-01-27] MEDS: SALINE 0.65% NAS SOLN 44 ML BTL 1 SPRAY NASAL (19:00)
[2021-01-27] MEDS: ACETAMINOPHEN 325 MG TABLET 650 MG PO (19:00)
[2021-01-27] MEDS: REMDESIVIR 100 MG/NS 250 ML 100 MG/250 ML BAG 250 MG IVPB (21:52)
[2021-01-27 22:21] LABS: Glucose Point of Care 136 (65-105)
[2021-01-28] VITALS (16 sets, daily range): BP systolic 105–144; BP diastolic 51–78; PULSE 69–92; RESP 16–20; TEMP 36.1–36.7; O2SAT 91–98
[2021-01-28] MEDS: IPRATROPIUM BR 0.02% INH SOLN 0.5 MG/2.5 ML VIAL INHALATION ×4 (03:16→19:44)
[2021-01-28] MEDS: ALBUTEROL SULFATE NEB 2.5 MG/0.5 ML INH INHALATION ×4 (03:16→19:44)
[2021-01-28] MEDS: ACETAMINOPHEN 325 MG TABLET 650 MG PO ×2 (03:57→08:11)
[2021-01-28] MEDS: LEVOTHYROXINE SODIUM 88 MCG TABLET PO (06:47)
[2021-01-28 07:08] LABS: Hematocrit 37.3 % (37.0-47.0); Hemoglobin 11.9 g/dL (12.0-15.0); Mean Corpuscular HGB Conc 31.9 g/dl (32-36); Mean Corpuscular Hemoglobin 27.7 pg (26-34); Mean Corpuscular Volume 86.9 fl (80-100); Mean Platelet Volume 10.5 fl (7.4-10.4); Platelet Count Result 214 k/mm3 (150-375); Red Blood Count 4.29 M/mm3 (4.2-5.4); Red Cell Distribution Width 14.1 % (11.5-14.5); White Blood Count 10.9 K/mm3 (4.5-10.0)
[2021-01-28 07:23] LABS: Potassium 3.6 mmol/L (3.4-5.0)
[2021-01-28 07:38] LABS: Alanine Aminotransferase 18 U/L (4-35); Albumin Level 3.3 g/dL (3.5-5.1); Alkaline Phosphatase 67 U/L (38-126); Anion Gap 6 mmol/L (8-16); Aspartate Amino Transferase 23 U/L (14-36); Bilirubin,Total 0.5 mg/dL (0.2-1.3); Blood Urea Nitrogen 22 mg/dL (7-17); CRP 8.4 mg/dL (<1.0); Calcium 8.4 mg/dL (8.4-10.2); Carbon Dioxide 27 mmol/L (22-30); Chloride 105 mmol/L (98-107); Estimated CRCL calculation 90 ml/min; Estimated Glomerular Filt Rate > 60; Glucose 109 mg/dL (65-105); Sodium 138 mmol/L (137-145)
[2021-01-28] MEDS: BUDESONIDE RESPULE NEB 0.5 MG/2 ML AMP 1 MG INHALATION ×2 (07:43→19:44)
[2021-01-28] MEDS: ENOXAPARIN 40 MG/0.4 ML SYRINGE SUB-Q (08:11)
[2021-01-28 08:16] LABS: Glucose Point of Care 79 (65-105)
[2021-01-28] MEDS: cycloSPORINE 0.4 ML OPHTH SOLUTION 1 DROP EACH EYE ×2 (08:16→21:26)
[2021-01-28] MEDS: polyethylene glycoL 3350 17 GM POWD.PACK PO (08:16)
[2021-01-28] MEDS: CHOLECALCIFEROL 1,000 UNITS TABLET 4000 UNITS PO (08:16)
[2021-01-28] MEDS: DOCUSATE SODIUM 100 MG CAPSULE PO ×2 (08:17→21:27)
[2021-01-28] MEDS: guaiFENesin 12 HR 600 MG TABCR 1200 MG PO ×2 (08:17→21:27)
[2021-01-28] MEDS: DEXAMETHASONE SOD PHOS INJ 4 MG/ML VIAL 6 MG IV PUSH (08:17)
[2021-01-28] MEDS: LOSARTAN POTASSIUM 50 MG TABLET 100 MG PO (08:17)
[2021-01-28] MEDS: MONTELUKAST SODIUM 10 MG TABLET PO (08:18)
[2021-01-28] MEDS: FENOFIBRATE,MICRONIZED 48 MG TABLET PO (08:19)
[2021-01-28] MEDS: FOLIC ACID 1 MG TABLET 3 MG PO (08:19)
[2021-01-28] MEDS: PRAVASTATIN SODIUM 20 MG TABLET PO (08:19)
[2021-01-28] MEDS: PANTOPRAZOLE 40 MG TABLET PO (08:19)
[2021-01-28] MEDS: LORATADINE 10 MG TABLET PO (08:20)
[2021-01-28] MEDS: FLUTICASONE PROPIONATE 0.05% NA SPR 16 GM BTL (*BKC) 1 SPRAY NASAL (08:20)
[2021-01-28] MEDS: HYDROcodone/acetaminophen (*CRX) 10-325 MG TABLET 1 TAB PO ×2 (10:08→21:43)
[2021-01-28 12:19] LABS: Glucose Point of Care 204 (65-105)
[2021-01-28] MEDS: INSULIN ASPART (*BKC) 100 UNITS/ML SUB-Q (12:36)
--- NOTE | 2021-01-28 15:43 | PM.IMPN ---
Progress Note: A&P Assessment and Plan (1) Acute respiratory failure with hypoxia: Code(s): J96.01 - Acute respiratory failure with hypoxia Status: Resolved Assessment and Plan: Per ER documentation, she was noted to be hypoxic down to 87%. [place] to be secondary to COVID-19 pneumonia. She is currently requiring 1 L per nasal cannula at this time. CTA on 01/25 negative for PE but did demonstrate moderate bilateral airspace disease consistent with COVID pneumonia. Echocardiogram evaluated given hypoxia with normal LV systolic function and no additional acute findings. Continue supplemental oxygen as needed to maintain oxygen saturation >90%, wean as tolerated She will need home O2 eval prior to discharge. She will need outpatient pulmonology follow-up in 2-3 weeks (2) Pneumonia due to COVID-19 virus: Code(s): U07.1 - COVID-19; J12.82 - Pneumonia due to coronavirus disease 2019 Status: Acute Assessment and Plan: Symptoms started 2-3 days prior to admission. She was exposed to her son who was positive 2 weeks prior. SARS-CoV-2 testing performed 01/22/21 is positive. CXR demonstrates patchy bilateral airspace disease. Continue remdesivir for a total of 10 days given immunocompromised status. Discussed with Dr. Maxwell (Pulmonology). Started on 01/22. Continue dexamethasone for 10 days. Convalescent plasma administered on 01/25 Supportive care to include bronchodilators, expectorants, incentive spirometry, PEP therapy Trend acute phase reactants Continue isolation precautions Repeat CXR prior to discharge per pulmonology recommendations (3) Abnormal sputum: Code(s): R09.3 - Abnormal sputum Status: Acute Assessment and Plan: Sputum culture collected on 01/23/2021 had mold isolated. I contacted [facility] for further identification and report today demonstrates Aspergillus species. There is concern given her immunoglobulin deficiency. Clinically, she is remaining stable without any significant changes.Results discussed with gi tech, Dr. Maxwell. I will place consult to Infectious Disease. Input is appreciated. (4) Hemoptysis: Code(s): R04.2 - Hemoptysis Status: Acute Assessment and Plan: She reported a minimal amount of hemoptysis yesterday. Today she did have bright red hemoptysis on at least 5 tissues. She had a CTA on 01/25 with limited segmental evaluation, but no pulmonary embolism was suspected. Her oxygen requirements are remaining stable. No tachypnea or tachycardia. Wells score for PE is 1.0, indicating low risk. Case discussed with gi tech. At this time, not recommended to repeat CTA as this was just completed. Will decrease Lovenox from 40 mg b.i.d. to 40 mg daily per pulmonology recommendations Repeat CXR tomorrow Monitor clinically (5) LISA (acute kidney injury): Code(s): N17.9 - Acute kidney failure, unspecified Status: Acute Assessment and Plan: Baseline creatinine is 0.8-1.0. Cr with mild increase from 1.2 on admission to 1.4 on 01/24. Cr has improved to 0.8 today. Suspect this was pre-renal given rapid improvement with IV fluids. IV fluids discontinued as she is tolerating p.o. intake and renal function has improved to baseline Continue to monitor renal function closely. Avoid nephrotoxins and renally dose medications Metformin on hold (6) Asthma with COPD: Code(s): J44.9 - Chronic obstructive pulmonary disease, unspecified Status: Acute Assessment and Plan: She had wheezing concerning for component of exacerbation of her COPD/asthma due to her lower respiratory tract infection. Wheezing has improved significantly with bronchodilators Pulmonology following and input is appreciated. Continue dexamethasone Continue albuterol and ipratropium nebs, budesonide, montelukast (7) YOON (obstructive sleep apnea): Code(s): G47.33 - Obstructive sleep ap
[2021-01-28 16:55] LABS: Glucose Point of Care 199 (65-105)
[2021-01-28] MEDS: REMDESIVIR 100 MG/NS 250 ML 100 MG/250 ML BAG 250 MG IVPB (21:44)
[2021-01-28 22:07] LABS: Glucose Point of Care 122 (65-105)
[2021-01-29] VITALS (18 sets, daily range): BP systolic 111–141; BP diastolic 57–80; PULSE 66–103; RESP 18–20; TEMP 36.1–37.1; O2SAT 91–96
[2021-01-29] MEDS: ALBUTEROL SULFATE NEB 2.5 MG/0.5 ML INH INHALATION ×4 (01:30→19:39)
[2021-01-29] MEDS: IPRATROPIUM BR 0.02% INH SOLN 0.5 MG/2.5 ML VIAL INHALATION ×4 (01:31→19:39)
[2021-01-29 06:06] LABS: Hematocrit 37.4 % (37.0-47.0); Hemoglobin 11.9 g/dL (12.0-15.0); Mean Corpuscular HGB Conc 31.8 g/dl (32-36); Mean Corpuscular Hemoglobin 27.4 pg (26-34); Mean Corpuscular Volume 86.2 fl (80-100); Mean Platelet Volume 10.8 fl (7.4-10.4); Platelet Count Result 237 k/mm3 (150-375); Red Blood Count 4.34 M/mm3 (4.2-5.4); White Blood Count 10.2 K/mm3 (4.5-10.0)
[2021-01-29 06:20] LABS: Alanine Aminotransferase 19 U/L (4-35); Estimated CRCL calculation 90 ml/min; Estimated Glomerular Filt Rate > 60
[2021-01-29] MEDS: LEVOTHYROXINE SODIUM 88 MCG TABLET PO (06:21)
[2021-01-29] MEDS: HYDROcodone/acetaminophen (*CRX) 10-325 MG TABLET 1 TAB PO (06:26)
[2021-01-29 06:36] LABS: Alanine Aminotransferase 18 U/L (4-35); Albumin Level 3.2 g/dL (3.5-5.1); Alkaline Phosphatase 70 U/L (38-126); Anion Gap 3 mmol/L (8-16); Aspartate Amino Transferase 24 U/L (14-36); Bilirubin,Total 0.5 mg/dL (0.2-1.3); Blood Urea Nitrogen 21 mg/dL (7-17); CRP 7.6 mg/dL (<1.0); Calcium 8.4 mg/dL (8.4-10.2); Carbon Dioxide 28 mmol/L (22-30); Chloride 105 mmol/L (98-107); Estimated CRCL calculation 80 ml/min; Estimated Glomerular Filt Rate > 60; Glucose 88 mg/dL (65-105); Potassium 3.9 mmol/L (3.4-5.0); Sodium 136 mmol/L (137-145)
[2021-01-29] MEDS: BUDESONIDE RESPULE NEB 0.5 MG/2 ML AMP 1 MG INHALATION ×2 (07:49→19:39)
[2021-01-29 07:56] LABS: Glucose Point of Care 82 (65-105)
[2021-01-29] MEDS: FOLIC ACID 1 MG TABLET 3 MG PO (10:12)
[2021-01-29] MEDS: DEXAMETHASONE SOD PHOS INJ 4 MG/ML VIAL 6 MG IV PUSH (10:12)
[2021-01-29] MEDS: CHOLECALCIFEROL 1,000 UNITS TABLET 4000 UNITS PO (10:12)
[2021-01-29] MEDS: DOCUSATE SODIUM 100 MG CAPSULE PO ×2 (10:13→21:38)
[2021-01-29] MEDS: FLUTICASONE PROPIONATE 0.05% NA SPR 16 GM BTL (*BKC) 1 SPRAY NASAL (10:13)
[2021-01-29] MEDS: PRAVASTATIN SODIUM 20 MG TABLET PO (10:13)
[2021-01-29] MEDS: guaiFENesin 12 HR 600 MG TABCR 1200 MG PO ×2 (10:13→21:38)
[2021-01-29] MEDS: cycloSPORINE 0.4 ML OPHTH SOLUTION 1 DROP EACH EYE ×2 (10:13→21:39)
[2021-01-29] MEDS: ENOXAPARIN 40 MG/0.4 ML SYRINGE SUB-Q (10:13)
[2021-01-29] MEDS: MONTELUKAST SODIUM 10 MG TABLET PO (10:14)
[2021-01-29] MEDS: PANTOPRAZOLE 40 MG TABLET PO (10:14)
[2021-01-29] MEDS: FENOFIBRATE,MICRONIZED 48 MG TABLET PO (10:14)
[2021-01-29] MEDS: LOSARTAN POTASSIUM 50 MG TABLET 100 MG PO (10:14)
[2021-01-29] MEDS: LORATADINE 10 MG TABLET PO (10:14)
[2021-01-29 12:04] LABS: Glucose Point of Care 84 (65-105)
--- NOTE | 2021-01-29 13:14 | PM.PNPUL ---
Progress Note: A&P Assessment and Plan (1) Asthma exacerbation: Code(s): J45.901 - Unspecified asthma with (acute) exacerbation Status: Acute Assessment and Plan: Home medicactions: Symbicort 160/4.5 at 2 puffs BID, spireva respimat 2.5 Q am and albuterol inhaler and neb rescue Q 4 PRN 01/24 continue Pulmicort 1 mg q.12 hours nebulized, continue ipratropium 0.5 mg q.6 hours nebulized, continue albuterol 2.5 mg Q 6 hours p.r.n. 01/25 Will change albuterol to Q 6 standing. 01/26 No wheezes on budesonide neb 1 mg Q 12, albuterol 2.5 mg neb Q 6 and ipratroprium neb 0.5 mg Q 6. 01/27 No wheezes continue budesonide neb 1 mg Q 12, albuterol 2.5 mg neb Q 6 and ipratroprium neb 0.5 mg Q 6. 01/29 No wheezes continue budesonide neb 1 mg Q 12, albuterol 2.5 mg neb Q 6 and ipratroprium neb 0.5 mg Q 6 When stable for discharge place on Symbicort 160/4.5 at 2 puffs BID, spireva respimat 2.5 Q am and albuterol inhaler and neb rescue Q 4 PRN (2) Pneumonia due to COVID-19 virus: Code(s): U07.1 - COVID-19; J12.82 - Pneumonia due to coronavirus disease 2019 Status: Acute Assessment and Plan: Symptoms started 01/19 and Covid positive 01/22. Son was COVID positive 2 weeks ago and recovered. Remdesivir and dexamethasone started on 01/23. Convalescent plasma given 01/25. 01/25 Worsening oxygenation this morning and now requiring 2 L NC for desats on RA to 89%. Convalescent plasma ordered. CT angio negative for PE. Echo with grossly normal LV function. 01/26 Continue remdesivir and dexamethasone (today is day 4 of 10). On 1 L NC. 01/27 Continue remdesivir and dexamethasone (today is day 5 of 10). On 1 L NC and stable for last 48 hours, wean as tolerated. Continue for 10 days as she is immunocompromised. I called pharmacy who will enter order for another 5 days. Obtain CXR prior to discharge to serve as baseline for follow up in future. Eventually she will need home O2 assessment day prior to or on day of discharge. 01/29 Day 7 remdesivir and dexamethasone. No progression and remains on 2 L NC. 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 IgG levels are still pending. 01/25 From 01/23 IgA 60 (low, normal 70-400), from 01/23 IgM 37 (low, normal 40-230), IgG 560 (700-1600). Convalescent COVID plasma given 01/23. (4) YOON (obstructive sleep apnea): Code(s): G47.33 - Obstructive sleep apnea (adult) (pediatric) Status: Acute Assessment and Plan: 01/26 Patient wears CPAP 7 RA for YOON for many years. Will place on home unit with 2 L bleed in tonight. 01/27 Tolerated home unit CPAP 7 with 3L bleed in, sats 94%. Wean as tolerated to keep sats > 92 at night. On night prior to discharge she should have Apnea link on room air to determine if she qualifies for nocturnal oxygen. 01/29 Tolerating home CPAP nasal pillows with 3 L with sats 94%. will follow with you. Subjective Date/time seen: 01/29/21 13:14 Interval history: Interval history: Patient with H/O asthma and YOON on CPAP 7 with RA at night at home. Presented with COVID pneumonia on 01/24 01/24 Interval history: she feels a bit more wheezy today but overall no significant change since yesterday. She is in no acute respiratory distress. She received a dose of IVIG yesterday and was continued on Remdesivir and dexamethasone. 01/25 Required 2 L NC this morning for desats on room air to 88%. Feels worse today with body aches, SOB. Convalescent plasma given. Echo was TDS with grossly normla LV EF (no numbers given), unable to assess valves, CTA without PE, bilateral patchy GGI with more consolidated areas in bases R>L. No fibrosis or honeycombing noted. 01/26 Patient minimally improved, less SOB, less cough, less wheezing and on 1 L NC with sats 92%. 3/31 Wore home CPAP with 3 L bl
--- NOTE | 2021-01-29 13:15 | PM.IMPN ---
Progress Note: A&P Assessment and Plan (1) Acute respiratory failure with hypoxia: Code(s): J96.01 - Acute respiratory failure with hypoxia Status: Resolved Assessment and Plan: Per ER documentation, she was noted to be hypoxic down to 87%. [place] to be secondary to COVID-19 pneumonia. She is currently requiring 2 L per nasal cannula at this time. CTA on 01/25 negative for PE but did demonstrate moderate bilateral airspace disease consistent with COVID pneumonia. Echocardiogram evaluated given hypoxia with normal LV systolic function and no additional acute findings. Continue supplemental oxygen as needed to maintain oxygen saturation 90% or above, wean as tolerated She will need home O2 eval prior to discharge. She will need outpatient pulmonology follow-up in 2-3 weeks (2) Pneumonia due to COVID-19 virus: Code(s): U07.1 - COVID-19; J12.82 - Pneumonia due to coronavirus disease 2019 Status: Acute Assessment and Plan: Symptoms started 2-3 days prior to admission. She was exposed to her son who was positive 2 weeks prior. SARS-CoV-2 testing performed 01/22/21 is positive. CXR demonstrates patchy bilateral airspace disease. Repeat CXR this morning demonstrates increased in scattered airspace opacities. Continue remdesivir for a total of 10 days given immunocompromised status. Discussed with Dr. Maxwell (Pulmonology). Started on 01/22. Continue dexamethasone for 10 days. Convalescent plasma administered on 01/25 Supportive care to include bronchodilators, expectorants, incentive spirometry, PEP therapy Trend acute phase reactants Continue isolation precautions Repeat CXR prior to discharge per pulmonology recommendations (3) Abnormal sputum: Code(s): R09.3 - Abnormal sputum Status: Acute Assessment and Plan: Sputum culture collected on 01/23/2021 had mold isolated. I contacted [facility] for further identification and report resulted on 01/28/2021 demonstrated Aspergillus species. There is concern given her immunoglobulin deficiency. Clinically, she is remaining stable without any significant changes. She remains afebrile. Infectious disease has been consulted and awaiting input. Consultation appreciated. Pulmonology following. Input is appreciated. (4) Hemoptysis: Code(s): R04.2 - Hemoptysis Status: Acute Assessment and Plan: She reported a minimal amount of hemoptysis on 01/27. On 01/28 she did have a moderate amount of hemoptysis. She had a CTA on 01/25 with limited segmental evaluation, but no pulmonary embolism was suspected. Her oxygen requirements have remained stable. No tachypnea or tachycardia. Wells score for PE is 1.0, indicating low risk. No further episodes of hemoptysis today Pulmonology is following and input is appreciated Lovenox decreased from 40 mg b.i.d. to 40 mg daily per pulmonology recommendations on 01/28 Monitor clinically (5) LISA (acute kidney injury): Code(s): N17.9 - Acute kidney failure, unspecified Status: Acute Assessment and Plan: Baseline creatinine is 0.8-1.0. Cr with mild increase from 1.2 on admission to 1.4 on 01/24. Suspect this was pre-renal given rapid improvement with IV fluids. Renal function has returned to baseline IV fluids discontinued as she is tolerating p.o. intake and renal function is now at baseline Continue to monitor closely. Avoid nephrotoxins and renally dose medications Metformin on hold (6) Asthma with COPD: Code(s): J44.9 - Chronic obstructive pulmonary disease, unspecified Status: Acute Assessment and Plan: She had wheezing concerning for component of exacerbation of her COPD/asthma due to her lower respiratory tract infection. Wheezing has improved significantly with bronchodilators Pulmonology following and input is appreciated. Continue dexamethasone Continue albuterol and ipratropium nebs, budesonide, montelukast
--- NOTE | 2021-01-29 16:13 | WPDINFPN2 ---
Progress Note: A&P Assessment and Plan (1) Abnormal sputum: Code(s): R09.3 - Abnormal sputum Status: Acute Assessment and Plan: 1. Aspergillus in sputum, non virulent species. 2. Acute covid 19 pneumonia 3. Immunosuppressed/immunocompromised REC No antifungal. Clinical and radiographic follow up over time, and if new finding to suggest invasive disease then further testing (with Dr. Savage or myself or both). Nothing to add in terms of SARS CoV2 treatment. Advised her to get vaccine 04/29/21 or soon thereafter, not before. Call if other Qs. Subjective Date/time seen: 01/29/21 16:13 Objective Data Vital Signs Vital Signs: Vital Signs - 24 hr 01/28/21 19:44 01/28/21 20:00 01/28/21 20:05 Temperature 36.1 C L Pulse Rate 87 79 92 Respiratory Rate 20 20 Blood Pressure 121/78 Pulse Oximetry 95 01/28/21 20:06 01/28/21 23:00 01/28/21 23:47 Temperature 36.6 C Pulse Rate 70 69 Respiratory Rate 20 Blood Pressure 120/65 Pulse Oximetry 93 93 95 01/29/21 00:00 01/29/21 01:31 01/29/21 01:40 Temperature Pulse Rate 66 88 90 Respiratory Rate 20 20 Blood Pressure Pulse Oximetry 01/29/21 01:48 01/29/21 03:59 01/29/21 04:00 Temperature 36.7 C Pulse Rate 92 72 Respiratory Rate 20 Blood Pressure 130/80 Pulse Oximetry 94 96 01/29/21 07:51 01/29/21 08:00 01/29/21 08:10 Temperature 36.6 C Pulse Rate 75 71 80 Respiratory Rate 20 18 20 Blood Pressure 120/61 Pulse Oximetry 94 91 01/29/21 12:00 01/29/21 13:24 01/29/21 13:34 Temperature 36.9 C Pulse Rate 85 103 H 83 Respiratory Rate 20 18 18 Blood Pressure 141/76 H Pulse Oximetry 94 Intake/Output Intake/Output: Intake & Output 01/26/21 01/27/21 01/28/21 01/29/21 23:59 23:59 23:59 23:59 Intake Total 2110 2300 1600 490 Output Total 0829 779 6445 400 Balance 610 1600 200 90 Meds/Results Medications: Active Medications Generic Name Dose Route Start Last Admin Trade Name Freq PRN Reason Stop Dose Admin Acetaminophen 650 mg 01/26/21 14:59 01/28/21 08:11 Acetaminophen 325 Mg Tablet PO 650 mg Q4H PRN Administration Headache Hydrocodone Bitart/Acetaminophen 1 tab 01/25/21 03:36 01/29/21 06:26 Hydrocodone/Acetaminophen (*Crx) 10-325 Mg Tablet PO 1 tab Q6H PRN Administration Pain Rated 7-10 Albuterol 2.5 mg 01/25/21 14:00 01/29/21 13:23 Albuterol Sulfate Neb 2.5 Mg/0.5 Ml Inh INHALATION 2.5 mg Q6HRT ESTRELLITA Administration Budesonide 1 mg 01/23/21 20:00 01/29/21 07:49 Budesonide Respule Neb 0.5 Mg/2 Ml Amp INHALATION 1 mg Q12HRT ESTRELLITA Administration Cyclosporine 1 drop 01/23/21 09:00 01/29/21 10:13 Cyclosporine 0.4 Ml Ophth Solution EACH EYE 1 drop Q12HR ESTRELLITA Administration Dexamethasone Sodium Phosphate 6 mg 01/23/21 09:00 01/29/21 10:12 Dexamethasone Sod Phos Inj 4 Mg/Ml Vial IV PUSH 02/01/21 09:01 6 mg DAILY ESTRELLITA Administration Dextrose 12.5 gm 01/22/21 23:24 Dextrose 50% 25 Gm/50 Ml Syringe IV PUSH PRN PRN Hypoglycemia Protocol Docusate Sodium 100 mg 01/26/21 21:00 01/29/21 10:13 Docusate Sodium 100 Mg Capsule PO 100 mg Q12HR ESTRELLITA Administration Enoxaparin Sodium 40 mg 01/29/21 09:00 01/29/21 10:13 Enoxaparin 40 Mg/0.4 Ml Syringe SUB-Q 40 mg DAILY ESTRELLITA Administration Fenofibrate 48 mg 01/23/21 09:00 01/29/21 10:14 Fenofibrate,Micronized 48 Mg Tablet PO 48 mg DAILY ESTRELLITA Administration Fluticasone Propionate 1 spray 01/23/21 09:00 01/29/21 10:13 Fluticasone Propionate 0.05% Na Spr 16 Gm Btl (*Bkc) NASAL 1 spray DAILY ESTRELLITA Administration Folic Acid 3 mg 01/23/21 09:00 01/29/21 10:12 Folic Acid 1 Mg Tablet PO 3 mg DAILY ESTRELLITA Administration Glucagon 1 mg 01/22/21 23:24 Glucagon For Inj 1 Mg Vial IM PRN PRN Hypoglycemia Protocol Glucose 15 gm 01/22/21 23:24 Glucose Oral Gel 15 Gm Of Glucse In 37.5 Gm Tube PO PRN P
[2021-01-29] MEDS: ACETAMINOPHEN 325 MG TABLET 650 MG PO (16:22)
[2021-01-29 17:25] LABS: Glucose Point of Care 127 (65-105)
--- NOTE | 2021-01-29 21:02 | CONS_ITS ---
DATE OF CONSULTATION: 01/29/2021 REASON FOR CONSULTATION: Aspergillus in sputum. HISTORY OF PRESENT ILLNESS: A 55-year-old female with rheumatoid arthritis, who has been on Plaquenil. She also was on leflunomide, but this is stopped by her nurse esthetician in early November due to recurrent respiratory infections. At some point thereafter, the leflunomide was resumed, but has been on hold since arrival here. She has known severe asthma, it is under fair control ever since her hospitalization here a year ago. At that time, Staph aureus was isolated from her expectorated sputum. Negative blood cultures. She was treated accordingly. She is on multiple inhalers at home and followed by Dr. Campo. For some reason, she was told in September to get varicella zoster vaccination and she had this done in early October and in early December. She was told also not to take the Coronavirus vaccine until at least a month thereafter and the patient was not told why this priority of vaccinations was formulated. Review of her medical record does not indicate. 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 She presented to hospital on January 22 with 3 days of shortness of breath, cough, nasal congestion, 37.8 temperature, myalgias, and the saturation is 90%. Her Coronavirus assay here is reactive. She has been given convalescent plasma, remdesivir, dexamethasone. The leflunomide has not been given nor the hydroxychloroquine. For diagnostic testing apparently and because of a single episode of blood-tinged sputum, sputum culture was obtained and culture as below. Consultation requested. The patient received antibacterials while here. PRESENT MEDICATIONS: List reviewed. No other immunosuppressants systemically. ALLERGIES: AMOXICILLIN, SULFA, BOTH CAUSED HIVES. OTHERS NOT PERTINENT. HABITS: Minimal tobacco use when much younger and no alcohol. FAMILY HISTORY: Colon cancer, COPD, and others. PAST MEDICAL HISTORY: In addition to the above, hypothyroidism, morbid obesity, YOON, vitamin D deficiency, C-sections, BTL, cholecystectomy, tonsillectomy, and hysterectomy. Also, meniscus repair, right knee. SOCIAL HISTORY: Works for a [employer] as a [place]. . Grown son and [id number] live with him. REVIEW OF SYSTEMS: Chest pain and chest tightness, fatigue, dyspnea on exertion. 14-point review otherwise negative. PHYSICAL EXAMINATION: GENERAL: Middle-aged female, who appears her actual age, in mild respiratory distress. VITAL SIGNS: She is on 2 L, saturation 91% to 94%. Afebrile since arrival. Pulse 80, respirations 20, blood pressure 141/76. SKIN: No generalized rash. Warm and dry. No erythroderma. NODES: She has no cervical adenopathy. EENT: Conjunctivae are clear. Mucous membranes well hydrated. No paranasal sinus erythema, edema, tenderness. NECK: No masses, thyromegaly, meningismus. LUNGS: Diffuse rhonchi and wheezing. Prolonged expiratory phase. Percussion is normal. CHEST: Equal expansion. Normal AP diameter for the body habitus. CARDIAC: Soft S1, S2. No murmur or gallop. Pulses are 2+ and equal. ABDOMEN: Massively obese. No tenderness. Normal bowel sounds. No organomegaly. EXTREMITIES: No clubbing, cyanosis, edema. No venous varicosities. LABORATORY DATA: Initial white count 2.8, now 10.2, down from 12.8 two days ago. Hemoglobin 11.9, platelets are 237, no differential done today; earlier showed a minimal left shift. D-dimer is 0.62. Mild hyponatremia. Accu-Cheks variable, currently 84. A1c 5.3%, ferritin high at 359. Liver function tests normal except for an albumin 3.2. Urinalysis, no evidence of infection. IgG 560, IgA 60, IgM 37. Coronavirus assay was reactive. Blood cultures final, no growth. Sputu
[2021-01-29] MEDS: REMDESIVIR 100 MG/NS 250 ML 100 MG/250 ML BAG 250 MG IVPB (21:40)
[2021-01-29 21:50] LABS: Glucose Point of Care 157 (65-105)
[2021-01-30] VITALS (17 sets, daily range): BP systolic 115–143; BP diastolic 56–76; PULSE 58–106; RESP 18–20; TEMP 35.8–36.8; O2SAT 91–97
[2021-01-30] MEDS: HYDROcodone/acetaminophen (*CRX) 10-325 MG TABLET 1 TAB PO (00:45)
[2021-01-30] MEDS: ALBUTEROL SULFATE NEB 2.5 MG/0.5 ML INH INHALATION ×4 (02:07→20:17)
[2021-01-30] MEDS: IPRATROPIUM BR 0.02% INH SOLN 0.5 MG/2.5 ML VIAL INHALATION ×4 (02:07→20:17)
[2021-01-30] MEDS: LEVOTHYROXINE SODIUM 88 MCG TABLET PO (06:30)
[2021-01-30 06:32] LABS: Hemoglobin 11.7 g/dL (12.0-15.0); Mean Corpuscular HGB Conc 31.6 g/dl (32-36); Mean Corpuscular Hemoglobin 27.4 pg (26-34); Mean Corpuscular Volume 86.7 fl (80-100); Mean Platelet Volume 10.6 fl (7.4-10.4); Platelet Count Result 236 k/mm3 (150-375); Red Blood Count 4.27 M/mm3 (4.2-5.4); Red Cell Distribution Width 14.1 % (11.5-14.5); White Blood Count 8.8 K/mm3 (4.5-10.0)
[2021-01-30 06:55] LABS: Alanine Aminotransferase 18 U/L (4-35); Albumin Level 3.1 g/dL (3.5-5.1); Alkaline Phosphatase 65 U/L (38-126); Anion Gap 3 mmol/L (8-16); Aspartate Amino Transferase 22 U/L (14-36); Bilirubin,Total 0.5 mg/dL (0.2-1.3); Blood Urea Nitrogen 23 mg/dL (7-17); CRP 15.1 mg/dL (<1.0); Calcium 8.7 mg/dL (8.4-10.2); Carbon Dioxide 30 mmol/L (22-30); Chloride 104 mmol/L (98-107); Estimated CRCL calculation 80 ml/min; Estimated Glomerular Filt Rate > 60; Glucose 93 mg/dL (65-105); Potassium 3.8 mmol/L (3.4-5.0); Sodium 137 mmol/L (137-145)
[2021-01-30] MEDS: BUDESONIDE RESPULE NEB 0.5 MG/2 ML AMP 1 MG INHALATION ×2 (07:22→20:17)
[2021-01-30 08:19] LABS: Glucose Point of Care 74 (65-105)
[2021-01-30] MEDS: DEXAMETHASONE SOD PHOS INJ 4 MG/ML VIAL 6 MG IV PUSH (10:08)
[2021-01-30] MEDS: CHOLECALCIFEROL 1,000 UNITS TABLET 4000 UNITS PO (10:09)
[2021-01-30] MEDS: guaiFENesin 12 HR 600 MG TABCR 1200 MG PO ×2 (10:09→21:00)
[2021-01-30] MEDS: FOLIC ACID 1 MG TABLET 3 MG PO (10:09)
[2021-01-30] MEDS: ENOXAPARIN 40 MG/0.4 ML SYRINGE SUB-Q (10:09)
[2021-01-30] MEDS: PANTOPRAZOLE 40 MG TABLET PO (10:09)
[2021-01-30] MEDS: FENOFIBRATE,MICRONIZED 48 MG TABLET PO (10:09)
[2021-01-30] MEDS: LOSARTAN POTASSIUM 50 MG TABLET 100 MG PO (10:10)
[2021-01-30] MEDS: DOCUSATE SODIUM 100 MG CAPSULE PO ×2 (10:10→21:00)
[2021-01-30] MEDS: MONTELUKAST SODIUM 10 MG TABLET PO (10:10)
[2021-01-30] MEDS: ACETAMINOPHEN 325 MG TABLET 650 MG PO (10:11)
[2021-01-30] MEDS: cycloSPORINE 0.4 ML OPHTH SOLUTION 1 DROP EACH EYE ×2 (10:12→21:01)
[2021-01-30] MEDS: FLUTICASONE PROPIONATE 0.05% NA SPR 16 GM BTL (*BKC) 1 SPRAY NASAL (10:12)
[2021-01-30] MEDS: PRAVASTATIN SODIUM 20 MG TABLET PO (10:12)
[2021-01-30] MEDS: LORATADINE 10 MG TABLET PO (10:12)
[2021-01-30 11:44] LABS: Glucose Point of Care 106 (65-105)
--- NOTE | 2021-01-30 11:55 | PM.PNPUL ---
Progress Note: A&P Assessment and Plan (1) Asthma exacerbation: Code(s): J45.901 - Unspecified asthma with (acute) exacerbation Status: Acute Assessment and Plan: Home medicactions: Symbicort 160/4.5 at 2 puffs BID, spireva respimat 2.5 Q am and albuterol inhaler and neb rescue Q 4 PRN 01/24 continue Pulmicort 1 mg q.12 hours nebulized, continue ipratropium 0.5 mg q.6 hours nebulized, continue albuterol 2.5 mg Q 6 hours p.r.n. 01/25 Will change albuterol to Q 6 standing. 01/26 No wheezes on budesonide neb 1 mg Q 12, albuterol 2.5 mg neb Q 6 and ipratroprium neb 0.5 mg Q 6. 01/27 No wheezes continue budesonide neb 1 mg Q 12, albuterol 2.5 mg neb Q 6 and ipratroprium neb 0.5 mg Q 6. 01/29 No wheezes continue budesonide neb 1 mg Q 12, albuterol 2.5 mg neb Q 6 and ipratroprium neb 0.5 mg Q 6 01/30 No wheezes continue budesonide neb 1 mg Q 12, albuterol 2.5 mg neb Q 6 and ipratroprium neb 0.5 mg Q 6 When stable for discharge place on Symbicort 160/4.5 at 2 puffs BID, spireva respimat 2.5 Q am and albuterol inhaler and neb rescue Q 4 PRN (2) Pneumonia due to COVID-19 virus: Code(s): U07.1 - COVID-19; J12.82 - Pneumonia due to coronavirus disease 2019 Status: Acute Assessment and Plan: Symptoms started 01/19 and Covid positive 01/22. Son was COVID positive 2 weeks ago and recovered. Remdesivir and dexamethasone started on 01/23. Convalescent plasma given 01/25. 01/25 Worsening oxygenation this morning and now requiring 2 L NC for desats on RA to 89%. Convalescent plasma ordered. CT angio negative for PE. Echo with grossly normal LV function. 01/26 Continue remdesivir and dexamethasone. On 1 L NC. 01/27 Continue remdesivir and dexamethasone (today is day 6 of 10). On 1 L NC and stable for last 48 hours, wean as tolerated. Continue for 10 days as she is immunocompromised. I called pharmacy who will enter order for another 5 days. Obtain CXR prior to discharge to serve as baseline for follow up in future. Eventually she will need home O2 assessment day prior to or on day of discharge. / Day 8 remdesivir and dexamethasone. No progression and remains on 2 L NC. 01/30 Day 9 remdesivir and dex. On 1 L at rest. 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 IgG levels are still pending. 01/25 From 01/23 IgA 60 (low, normal 70-400), from 01/23 IgM 37 (low, normal 40-230), IgG 560 (700-1600). Convalescent COVID plasma given 01/23. (4) YOON (obstructive sleep apnea): Code(s): G47.33 - Obstructive sleep apnea (adult) (pediatric) Status: Acute Assessment and Plan: 01/26 Patient wears CPAP 7 RA for YOON for many years. Will place on home unit with 2 L bleed in tonight. 01/27 Tolerated home unit CPAP 7 with 3L bleed in, sats 94%. Wean as tolerated to keep sats > 92 at night. On night prior to discharge she should have Apnea link on room air to determine if she qualifies for nocturnal oxygen. 01/29 Tolerating home CPAP nasal pillows with 3 L with sats 94%. 01/30 Tolerating home unit with 3 L bleed in, On night prior to discharge would perform overnight oximetry on same level of oxygen that she required at rest during the day. [facility], will sign off, call with questions. Subjective Date/time seen: 01/30/21 11:55 Interval history: Interval history: Patient with H/O asthma and YOON on CPAP 7 with RA at night at home. Presented with COVID pneumonia on 01/24 01/24 Interval history: she feels a bit more wheezy today but overall no significant change since yesterday. She is in no acute respiratory distress. She received a dose of IVIG yesterday and was continued on Remdesivir and dexamethasone. 01/25 Required 2 L NC this morning for desats on room air to 88%. Feels worse today with body aches, SOB. Convalescen
--- NOTE | 2021-01-30 13:02 | PM.IMPN ---
Progress Note: A&P Assessment and Plan (1) Acute respiratory failure with hypoxia: Code(s): J96.01 - Acute respiratory failure with hypoxia Status: Resolved Assessment and Plan: Per ER documentation, she was noted to be hypoxic down to 87%. [place] to be secondary to COVID-19 pneumonia. She is currently requiring 3 L per nasal cannula at this time as she desaturated with activity this morning.. CTA on 01/25 negative for PE but did demonstrate moderate bilateral airspace disease consistent with COVID pneumonia. Echocardiogram evaluated given hypoxia with normal LV systolic function and no additional acute findings. Continue supplemental oxygen as needed to maintain oxygen saturation 90% or above, wean as tolerated She will need home O2 eval and nocturnal O2 eval prior to discharge. She will need outpatient pulmonology follow-up in 2-3 weeks (2) Pneumonia due to COVID-19 virus: Code(s): U07.1 - COVID-19; J12.82 - Pneumonia due to coronavirus disease 2018 Status: Acute Assessment and Plan: Symptoms started 2-3 days prior to admission. She was exposed to her son who was positive 2 weeks prior. SARS-CoV-2 testing performed 01/22/21 is positive. CXR demonstrates patchy bilateral airspace disease. Repeat CXR on 01/29 demonstrated increase in scattered airspace opacities. Continue remdesivir for a total of 10 days given immunocompromised status. Discussed with Dr. Maxwell (Pulmonology). Started on 01/22. Continue dexamethasone for 10 days. Convalescent plasma administered on 01/25 Supportive care to include bronchodilators, expectorants, incentive spirometry, PEP therapy Trend acute phase reactants Continue isolation precautions Repeat CXR prior to discharge per pulmonology recommendations (3) Hemoptysis: Code(s): R04.2 - Hemoptysis Status: Acute Assessment and Plan: Resolved. She reported a minimal amount of hemoptysis on 01/27. On 01/28 she did have a moderate amount of hemoptysis. She had a CTA on 01/25 with limited segmental evaluation, but no pulmonary embolism was suspected. Her oxygen requirements have remained stable. No tachypnea or tachycardia. Wells score for PE is 1.0, indicating low risk. No further episodes of hemoptysis following Pulmonology is following and input is appreciated Lovenox decreased from 40 mg b.i.d. to 40 mg daily per pulmonology recommendations on 01/28 (4) Aspergillus: Code(s): B44.9 - Aspergillosis, unspecified Status: Acute Assessment and Plan: Sputum culture collected on 01/23/2021 showed growth of aspergillus species (not fumigatus, flavus, or niger groups). She was seen by Infectious Disease. Not felt to be pathogenic. Clinically, she is remaining stable. Appreciate ID and pulmonology input. No need for anti fungals at this time. Monitor clinically. If new symptoms develop, would consider further investigation of invasive infection per ID (5) LISA (acute kidney injury): Code(s): N17.9 - Acute kidney failure, unspecified Status: Acute Assessment and Plan: Baseline creatinine is 0.8-1.0. Cr with mild increase from 1.2 on admission to 1.4 on 01/24. Suspect this was pre-renal given rapid improvement with IV fluids. Renal function has returned to baseline Continue to monitor closely. Avoid nephrotoxins and renally dose medications Metformin on hold (6) Asthma with COPD: Code(s): J44.9 - Chronic obstructive pulmonary disease, unspecified Status: Acute Assessment and Plan: Resolved. She had wheezing concerning for component of exacerbation of her COPD/asthma due to her lower respiratory tract infection. Wheezing improved significantly with bronchodilators Pulmonology following and input is appreciated. Continue dexamethasone Continue albuterol and ipratropium nebs, budesonide, montelukast (7) YOON (obstructive sleep apnea): Code(s): G47.33 - Obstruc
[2021-01-30 16:21] LABS: Glucose Point of Care 181 (65-105)
[2021-01-30] MEDS: REMDESIVIR 100 MG/NS 250 ML 100 MG/250 ML BAG 250 MG IVPB (21:00)
[2021-01-30 21:37] LABS: Glucose Point of Care 163 (65-105)
[2021-01-31] VITALS (24 sets, daily range): BP systolic 116–160; BP diastolic 46–80; PULSE 63–96; RESP 18–24; TEMP 35.9–37.4; O2SAT 87–98
[2021-01-31] MEDS: IPRATROPIUM BR 0.02% INH SOLN 0.5 MG/2.5 ML VIAL INHALATION ×4 (02:52→20:35)
[2021-01-31] MEDS: ALBUTEROL SULFATE NEB 2.5 MG/0.5 ML INH INHALATION ×4 (02:52→20:35)
[2021-01-31] MEDS: HYDROcodone/acetaminophen (*CRX) 10-325 MG TABLET 1 TAB PO (03:36)
[2021-01-31] MEDS: LEVOTHYROXINE SODIUM 88 MCG TABLET PO (05:51)
[2021-01-31 06:08] LABS: Hemoglobin 11.4 g/dL (12.0-15.0); Mean Corpuscular HGB Conc 31.7 g/dl (32-36); Mean Corpuscular Hemoglobin 27.4 pg (26-34); Mean Corpuscular Volume 86.5 fl (80-100); Mean Platelet Volume 10.6 fl (7.4-10.4); Platelet Count Result 244 k/mm3 (150-375); Red Blood Count 4.16 M/mm3 (4.2-5.4); White Blood Count 9.5 K/mm3 (4.5-10.0)
[2021-01-31 06:38] LABS: Alanine Aminotransferase 19 U/L (4-35); Alkaline Phosphatase 64 U/L (38-126); Anion Gap 5 mmol/L (8-16); Aspartate Amino Transferase 22 U/L (14-36); Bilirubin,Total 0.4 mg/dL (0.2-1.3); Blood Urea Nitrogen 21 mg/dL (7-17); CRP 7.9 mg/dL (<1.0); Calcium 8.3 mg/dL (8.4-10.2); Carbon Dioxide 29 mmol/L (22-30); Chloride 104 mmol/L (98-107); Estimated CRCL calculation 90 ml/min; Estimated Glomerular Filt Rate > 60; Glucose 85 mg/dL (65-105); Potassium 3.8 mmol/L (3.4-5.0); Sodium 138 mmol/L (137-145)
[2021-01-31 08:05] LABS: Glucose Point of Care 58 (65-105)
[2021-01-31 08:35] LABS: Glucose Point of Care 112 (65-105)
[2021-01-31] MEDS: BUDESONIDE RESPULE NEB 0.5 MG/2 ML AMP 1 MG INHALATION ×2 (08:40→20:35)
[2021-01-31] MEDS: PRAVASTATIN SODIUM 20 MG TABLET PO (09:17)
[2021-01-31] MEDS: CHOLECALCIFEROL 1,000 UNITS TABLET 4000 UNITS PO (09:17)
[2021-01-31] MEDS: LOSARTAN POTASSIUM 50 MG TABLET 100 MG PO (09:18)
[2021-01-31] MEDS: cycloSPORINE 0.4 ML OPHTH SOLUTION 1 DROP EACH EYE ×2 (09:18→20:15)
[2021-01-31] MEDS: FOLIC ACID 1 MG TABLET 3 MG PO (09:18)
[2021-01-31] MEDS: DEXAMETHASONE SOD PHOS INJ 4 MG/ML VIAL 6 MG IV PUSH (09:18)
[2021-01-31] MEDS: guaiFENesin 12 HR 600 MG TABCR 1200 MG PO ×2 (09:19→20:14)
[2021-01-31] MEDS: LORATADINE 10 MG TABLET PO (09:19)
[2021-01-31] MEDS: FENOFIBRATE,MICRONIZED 48 MG TABLET PO (09:19)
[2021-01-31] MEDS: DOCUSATE SODIUM 100 MG CAPSULE PO (09:19)
[2021-01-31] MEDS: PANTOPRAZOLE 40 MG TABLET PO (09:19)
[2021-01-31] MEDS: MONTELUKAST SODIUM 10 MG TABLET PO (09:19)
[2021-01-31] MEDS: ENOXAPARIN 40 MG/0.4 ML SYRINGE SUB-Q (09:20)
[2021-01-31] MEDS: FLUTICASONE PROPIONATE 0.05% NA SPR 16 GM BTL (*BKC) 1 SPRAY NASAL (09:35)
--- NOTE | 2021-01-31 11:58 | PM.IMPN ---
Progress Note: A&P Assessment and Plan (1) Acute respiratory failure with hypoxia: Code(s): J96.01 - Acute respiratory failure with hypoxia Status: Resolved Assessment and Plan: Per ER documentation, she was noted to be hypoxic down to 87% upon arrival. [place] to be secondary to COVID-19 pneumonia. CTA on 01/25 negative for PE but did demonstrate moderate bilateral airspace disease consistent with COVID pneumonia. Echocardiogram evaluated given hypoxia with normal LV systolic function and no additional acute findings. O2 sats dropped to 87% today and she is having increased dyspnea. She is currently maintaining adequate O2 sats on 3 L. Continue supplemental oxygen as needed to maintain oxygen saturation 90% or above, wean as tolerated She will need home O2 eval and nocturnal O2 eval prior to discharge. Will await stabilization of oxygen requirements prior to proceeding. Repeat CXR today given increased dyspnea and hypoxia today. She will need outpatient pulmonology follow-up in 2-3 weeks (2) Pneumonia due to COVID-19 virus: Code(s): U07.1 - COVID-19; J12.82 - Pneumonia due to coronavirus disease 2019 Status: Acute Assessment and Plan: Symptoms started 2-3 days prior to admission. She was exposed to her son who was positive 2 weeks prior. SARS-CoV-2 testing performed 01/22/21 is positive. CXR demonstrates patchy bilateral airspace disease. Repeat CXR on 01/29 demonstrated increase in scattered airspace opacities. Continue remdesivir for a total of 10 days given immunocompromised status. Discussed with Dr. Maxwell (Pulmonology). Started on 01/22. She will complete this evening. Continue dexamethasone for 10 days. Convalescent plasma administered on 01/25 Supportive care to include bronchodilators, expectorants, incentive spirometry, PEP therapy Trend acute phase reactants Continue isolation precautions Repeat CXR prior to discharge per pulmonology recommendations (3) Hemoptysis: Code(s): R04.2 - Hemoptysis Status: Acute Assessment and Plan: Resolved. She had a moderate amount of hemoptysis on 01/28. She had a CTA on 01/25 with limited segmental evaluation, but no pulmonary embolism was suspected. Her oxygen requirements have remained stable. No tachypnea or tachycardia. Wells score for PE is 1.0, indicating low risk. No further episodes of hemoptysis following Pulmonology is following and input is appreciated [facility] decreased from 40 mg b.i.d. to 40 mg daily per pulmonology recommendations on 01/28 (4) Aspergillus: Code(s): B44.9 - Aspergillosis, unspecified Status: Acute Assessment and Plan: Sputum culture collected on 01/23/2021 showed growth of aspergillus species (not fumigatus, flavus, or niger groups). She was seen by Infectious Disease. Not felt to be pathogenic. Clinically, she is remaining stable. Appreciate ID and pulmonology input. No need for antifungals at this time. Monitor clinically. If new symptoms develop, would consider further investigation of invasive infection per ID (5) LISA (acute kidney injury): Code(s): N17.9 - Acute kidney failure, unspecified Status: Acute Assessment and Plan: Baseline creatinine is 0.8-1.0. Cr with mild increase from 1.2 on admission to 1.4 on 01/24. Suspect this was pre-renal given rapid improvement with IV fluids. Renal function has returned to baseline Continue to monitor closely. Avoid nephrotoxins and renally dose medications Metformin on hold (6) Asthma with COPD: Code(s): J44.9 - Chronic obstructive pulmonary disease, unspecified Status: Acute Assessment and Plan: Resolved. She had wheezing concerning for component of exacerbation of her COPD/asthma due to her lower respiratory tract infection. Wheezing improved significantly with bronchodilators Pulmonology following and input is appreciated. Continue dexamethasone Continue a
[2021-01-31 12:53] LABS: Glucose Point of Care 96 (65-105)
[2021-01-31 17:44] LABS: Glucose Point of Care 162 (65-105)
[2021-01-31 20:56] LABS: Glucose Point of Care 150 (65-105)
[2021-01-31] MEDS: REMDESIVIR 100 MG/NS 250 ML 100 MG/250 ML BAG 250 MG IVPB (21:59)
[2021-02-01] VITALS (20 sets, daily range): BP systolic 99–119; BP diastolic 48–68; PULSE 69–108; RESP 18–20; TEMP 36.8–37.3; O2SAT 91–98
[2021-02-01] MEDS: ALBUTEROL SULFATE NEB 2.5 MG/0.5 ML INH INHALATION ×4 (02:02→21:28)
[2021-02-01] MEDS: IPRATROPIUM BR 0.02% INH SOLN 0.5 MG/2.5 ML VIAL INHALATION ×4 (02:02→21:28)
[2021-02-01] MEDS: ACETAMINOPHEN 325 MG TABLET 650 MG PO (03:33)
[2021-02-01] MEDS: LEVOTHYROXINE SODIUM 88 MCG TABLET PO (05:43)
[2021-02-01 06:05] LABS: Hematocrit 35.3 % (37.0-47.0); Hemoglobin 11.3 g/dL (12.0-15.0)
[2021-02-01 06:29] LABS: Alanine Aminotransferase 16 U/L (4-35); Albumin Level 2.9 g/dL (3.5-5.1); Alkaline Phosphatase 62 U/L (38-126); Anion Gap 4 mmol/L (8-16); Aspartate Amino Transferase 17 U/L (14-36); Bilirubin,Total 0.4 mg/dL (0.2-1.3); Blood Urea Nitrogen 21 mg/dL (7-17); Calcium 8.2 mg/dL (8.4-10.2); Carbon Dioxide 26 mmol/L (22-30); Chloride 106 mmol/L (98-107); Estimated CRCL calculation 90 ml/min; Estimated Glomerular Filt Rate > 60; Glucose 91 mg/dL (65-105); Potassium 3.6 mmol/L (3.4-5.0); Sodium 136 mmol/L (137-145)
[2021-02-01 06:40] LABS: CRP 18.6 mg/dL (<1.0)
[2021-02-01] MEDS: BUDESONIDE RESPULE NEB 0.5 MG/2 ML AMP 1 MG INHALATION ×2 (07:38→21:29)
[2021-02-01 08:15] LABS: Glucose Point of Care 80 (65-105)
[2021-02-01] MEDS: PRAVASTATIN SODIUM 20 MG TABLET PO (09:20)
[2021-02-01] MEDS: guaiFENesin 12 HR 600 MG TABCR 1200 MG PO ×2 (09:20→20:12)
[2021-02-01] MEDS: DEXAMETHASONE SOD PHOS INJ 4 MG/ML VIAL 6 MG IV PUSH (09:20)
[2021-02-01] MEDS: cycloSPORINE 0.4 ML OPHTH SOLUTION 1 DROP EACH EYE ×2 (09:20→20:13)
[2021-02-01] MEDS: ENOXAPARIN 40 MG/0.4 ML SYRINGE SUB-Q (09:20)
[2021-02-01] MEDS: FOLIC ACID 1 MG TABLET 3 MG PO (09:21)
[2021-02-01] MEDS: CHOLECALCIFEROL 1,000 UNITS TABLET 4000 UNITS PO (09:21)
[2021-02-01] MEDS: MONTELUKAST SODIUM 10 MG TABLET PO (09:22)
[2021-02-01] MEDS: LORATADINE 10 MG TABLET PO (09:22)
[2021-02-01] MEDS: LOSARTAN POTASSIUM 50 MG TABLET 100 MG PO (09:22)
[2021-02-01] MEDS: FENOFIBRATE,MICRONIZED 48 MG TABLET PO (09:22)
[2021-02-01] MEDS: FLUTICASONE PROPIONATE 0.05% NA SPR 16 GM BTL (*BKC) 1 SPRAY NASAL (09:22)
[2021-02-01] MEDS: PANTOPRAZOLE 40 MG TABLET PO (09:23)
[2021-02-01 11:42] LABS: Glucose Point of Care 109 (65-105)
--- NOTE | 2021-02-01 12:59 | PCDIET ---
Weekly nutritional screen. Patient is tolerating current diet, regular, with adequate intake, 100% of last four intakes. No weight loss reported. No nutritional needs at this time.
--- NOTE | 2021-02-01 13:14 | PM.IMPN ---
Progress Note: A&P Assessment and Plan (1) Acute respiratory failure with hypoxia: Code(s): J96.01 - Acute respiratory failure with hypoxia Status: Resolved Assessment and Plan: Per ER documentation, she was noted to be hypoxic down to 87% upon arrival. [place] to be secondary to COVID-19 pneumonia. CTA on 01/25 negative for PE but did demonstrate moderate bilateral airspace disease consistent with COVID pneumonia. Echocardiogram evaluated given hypoxia with normal LV systolic function and no additional acute findings. She required up to 4 L supplemental O2 but has been weaned to room air. Continue supplemental oxygen as needed to maintain oxygen saturation 90% or above, wean as tolerated Hopeful discharge tomorrow. Proceed with home O2 eval and nocturnal O2 eval She will need outpatient pulmonology follow-up in 2-3 weeks (2) Pneumonia due to COVID-19 virus: Code(s): U07.1 - COVID-19; J12.82 - Pneumonia due to coronavirus disease 2019 Status: Acute Assessment and Plan: Symptoms started 2-3 days prior to admission. She was exposed to her son who was positive 2 weeks prior. SARS-CoV-2 testing performed 01/22/21 was positive. CXR showed extensive pulmonary infiltrates. She received 10 days of IV Remdesivir which was extended due to her immunocompromised status based on pulmonology recommendations. Shows completed 10 days of IV dexamethasone. She received convalescent plasma on 01/25/2021. Supportive care was provided including bronchodilators, expectorants, incentive spirometry, and PEP therapy. Will obtain a repeat CXR tomorrow morning prior to discharge per pulmonology recommendations to establish a baseline for future follow up. (3) Hemoptysis: Code(s): R04.2 - Hemoptysis Status: Acute Assessment and Plan: She had a moderate amount of hemoptysis on 01/28. She had a CTA on 01/25 with limited segmental evaluation, but no pulmonary embolism was suspected. No tachypnea or tachycardia. Wells score for PE is 1.0, indicating low risk. No further episodes of hemoptysis following. Her Lovenox (initiated for DVT prophylaxis) was decreased from 40 mg bid to 40 mg daily, and this seemed to provide improvement. Hemoptysis resolved. (4) Aspergillus: Code(s): B44.9 - Aspergillosis, unspecified Status: Acute Assessment and Plan: Sputum culture collected on 01/23/2021 showed growth of aspergillus species (not fumigatus, flavus, or niger groups). She was seen by Infectious Disease. Not felt to be pathogenic. Clinically, she is remaining stable. Per ID, no need for antifungals. She will be monitored as an outpatient by pulmonology. Should new symptoms develop, would consider further investigation of invasive infection per ID recs. (5) LISA (acute kidney injury): Code(s): N17.9 - Acute kidney failure, unspecified Status: Acute Assessment and Plan: Baseline creatinine is 0.8-1.0. Creatinine was 1.2 on admission and increased to 1.4 on 01/24. Suspect this was pre-renal secondary to dehydration given rapid improvement with IV fluids. Renal function returned to baseline Continue to monitor closely. Avoid nephrotoxins and renally dose medications Metformin on hold (6) Asthma with COPD: Code(s): J44.9 - Chronic obstructive pulmonary disease, unspecified Status: Acute Assessment and Plan: Resolved. She had wheezing concerning for component of exacerbation of her COPD/asthma due to her lower respiratory tract infection. Wheezing improved significantly with bronchodilators and dexamethasone. Pulmonology following and input is appreciated. Continue albuterol and ipratropium nebs, budesonide, montelukast Will discharge with Symbicort 2 puffs BID, Spiriva 2.5 qAM, albuterol inhaler, and albuterol neb rescue q4h p.r.n. per pulmonology recommendations (7) YOON (obstructive sleep apnea): Code(s): G47.33 - Obstructive sleep a
--- NOTE | 2021-02-01 15:50 | HOMEO2EVAL ---
Home Oxygen Evaluation RC: Home Oxygen (O2) Evaluation Start: 02/01/21 13:37 Freq: ONCE Status: Active Protocol: RPE Activity Type Activity Date Activity User E-Sign Co-Sign Detail Recorded Client Recorded Date Recorded By Document 02/01/21 15:33 KRM [email or web address] 02/01/21 15:47 KRM Document 02/01/21 15:34 KRM [email or web address] 02/01/21 15:47 KRM Document 02/01/21 15:36 KRM [email or web address] 02/01/21 15:47 KRM 02/01/21 02/01/21 02/01/21 15:33 15:34 15:36 Home O2 Evaluation Test Phase Resting Exercise Exercise Oxygen Delivery Room Air Room Air Room Air Pulse Oximetry (90-100 %) 94 95 92 Pulse Rate (60-100 beats/min) 83 101 H 108 H Activity Tolerance Fair Fair Ambulation Distance (feet) 50 Treatment Charges O2 Evaluation - O2 Evaluation - Inpatient Inpatient
[2021-02-01 17:21] LABS: Glucose Point of Care 158 (65-105)
[2021-02-01 21:18] LABS: Glucose Point of Care 183 (65-105)
[2021-02-02] VITALS (21 sets, daily range): BP systolic 111–128; BP diastolic 57–92; PULSE 69–99; RESP 18–22; TEMP 36.8–37.2; O2SAT 87–95
[2021-02-02] MEDS: ACETAMINOPHEN 325 MG TABLET 650 MG PO (01:46)
[2021-02-02 06:04] LABS: Hematocrit 36.4 % (37.0-47.0); Hemoglobin 11.4 g/dL (12.0-15.0)
[2021-02-02] MEDS: LEVOTHYROXINE SODIUM 88 MCG TABLET PO (06:05)
[2021-02-02 06:22] LABS: Alanine Aminotransferase 17 U/L (4-35); Albumin Level 3.1 g/dL (3.5-5.1); Alkaline Phosphatase 69 U/L (38-126); Anion Gap 6 mmol/L (8-16); Aspartate Amino Transferase 18 U/L (14-36); Bilirubin,Total 0.5 mg/dL (0.2-1.3); Blood Urea Nitrogen 19 mg/dL (7-17); Calcium 8.3 mg/dL (8.4-10.2); Carbon Dioxide 26 mmol/L (22-30); Chloride 105 mmol/L (98-107); Estimated CRCL calculation 90 ml/min; Estimated Glomerular Filt Rate > 60; Glucose 112 mg/dL (65-105); Potassium 3.6 mmol/L (3.4-5.0); Sodium 137 mmol/L (137-145)
[2021-02-02 06:42] LABS: CRP 15.5 mg/dL (<1.0)
[2021-02-02] MEDS: ALBUTEROL SULFATE NEB 2.5 MG/0.5 ML INH INHALATION ×3 (07:45→20:21)
[2021-02-02] MEDS: BUDESONIDE RESPULE NEB 0.5 MG/2 ML AMP 1 MG INHALATION (07:46)
[2021-02-02] MEDS: IPRATROPIUM BR 0.02% INH SOLN 0.5 MG/2.5 ML VIAL INHALATION ×3 (07:46→20:21)
[2021-02-02] MEDS: ENOXAPARIN 40 MG/0.4 ML SYRINGE SUB-Q (08:56)
[2021-02-02] MEDS: MONTELUKAST SODIUM 10 MG TABLET PO (08:56)
[2021-02-02] MEDS: CHOLECALCIFEROL 1,000 UNITS TABLET 4000 UNITS PO (08:56)
[2021-02-02] MEDS: FOLIC ACID 1 MG TABLET 3 MG PO (08:57)
[2021-02-02] MEDS: LORATADINE 10 MG TABLET PO (08:57)
[2021-02-02] MEDS: LOSARTAN POTASSIUM 50 MG TABLET 100 MG PO (08:57)
[2021-02-02 08:58] LABS: Glucose Point of Care 128 (65-105)
[2021-02-02] MEDS: guaiFENesin 12 HR 600 MG TABCR 1200 MG PO ×2 (08:58→21:58)
[2021-02-02] MEDS: PRAVASTATIN SODIUM 20 MG TABLET PO (08:58)
[2021-02-02] MEDS: cycloSPORINE 0.4 ML OPHTH SOLUTION 1 DROP EACH EYE ×2 (08:58→21:58)
[2021-02-02] MEDS: PANTOPRAZOLE 40 MG TABLET PO (08:58)
[2021-02-02] MEDS: FENOFIBRATE,MICRONIZED 48 MG TABLET PO (08:58)
[2021-02-02] MEDS: FLUTICASONE PROPIONATE 0.05% NA SPR 16 GM BTL (*BKC) 1 SPRAY NASAL (09:09)
[2021-02-02] MEDS: SALINE 0.65% NAS SOLN 44 ML BTL 1 SPRAY NASAL (09:09)
[2021-02-02 11:56] LABS: Glucose Point of Care 103 (65-105)
--- NOTE | 2021-02-02 13:15 | PM.IMPN ---
Progress Note: A&P Assessment and Plan (1) Acute respiratory failure with hypoxia: Code(s): J96.01 - Acute respiratory failure with hypoxia Status: Resolved Assessment and Plan: Per ER documentation, she was noted to be hypoxic down to 87% upon arrival. [place] to be secondary to COVID-19 pneumonia. CTA on 01/25 negative for PE but did demonstrate moderate bilateral airspace disease consistent with COVID pneumonia. Echocardiogram evaluated given hypoxia with normal LV systolic function and no additional acute findings. She required up to 4 L supplemental O2 but has been weaned to room air at rest. She is requiring 3 liters with exertion. Continue supplemental oxygen as needed to maintain oxygen saturation 90% or above, wean as tolerated Anticipate that she will need home oxygen with exertion and repeat home oxygen evaluation was ordered (2) Necrotizing pneumonia: Code(s): J85.0 - Gangrene and necrosis of lung Status: Acute Assessment and Plan: CT chest ordered given suggestion of cavitation on CXR. CT chest findings suggest necrotizing pneumonia. Pulmonology and infectious disease following Discussed with pulmonology and infectious disease and she will require bronchoscopy with further plan to follow. Discussed with infectious disease who does not recommend any empiric treatment until bronchoscopy results are available. (3) Pneumonia due to COVID-19 virus: Code(s): U07.1 - COVID-19; J12.82 - Pneumonia due to coronavirus disease 2018 Status: Acute Assessment and Plan: Symptoms started 2-3 days prior to admission. She was exposed to her son who was positive 2 weeks prior. SARS-CoV-2 testing performed 01/22/21 was positive. CXR showed extensive pulmonary infiltrates. She received 10 days of IV Remdesivir which was extended due to her immunocompromised status based on pulmonology recommendations. Shows completed 10 days of IV dexamethasone. She received convalescent plasma on 01/25/2021. Supportive care was provided including bronchodilators, expectorants, incentive spirometry, and PEP therapy. (4) Hemoptysis: Code(s): R04.2 - Hemoptysis Status: Resolved Assessment and Plan: Resolved. She had a moderate amount of hemoptysis on 01/28. She had a CTA on 01/25 with limited segmental evaluation, but no pulmonary embolism was suspected. No tachypnea or tachycardia. Wells score for PE is 1.0, indicating low risk. Hemoptysis has resolved with decreased dose of lovenox from 40 mg bid to 40 mg daily. 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 She was seen by Infectious Disease and this was not felt to be pathogenic so antifungal was not recommended per ID. Now, CT chest is showing necrotizing pneumonia. Discussed with pulmonology and infectious disease who are following. Given CT findings of necrotizing pneumonia, she will need bronchoscopy with further treatment plan to be determined based on bronchoscopy results. (6) LISA (acute kidney injury): Code(s): N17.9 - Acute kidney failure, unspecified Status: Acute Assessment and Plan: Baseline creatinine is 0.8-1.0. Creatinine was 1.2 on admission and increased to 1.4 on 01/24. Suspect this was pre-renal secondary to dehydration given rapid improvement with IV fluids. Renal function returned to baseline Continue to monitor closely. Avoid nephrotoxins and renally dose medications Metformin on hold (7) Asthma with COPD: Code(s): J44.9 - Chronic obstructive pulmonary disease, unspecified Status: Acute Assessment and Plan: Resolved. She had wheezing concerning for component of exacerbation of her COPD/asthma due to her lower respiratory tract infection. Wheezing improved significa
--- NOTE | 2021-02-02 15:00 | HOMEO2EVAL ---
Home Oxygen Evaluation RC: Home Oxygen (O2) Evaluation Start: 02/02/21 10:59 Freq: ONCE Status: Active Protocol: RPE Activity Type Activity Date Activity User E-Sign Co-Sign Detail Recorded Client Recorded Date Recorded By Document 02/02/21 14:00 [email or web address] [id number] 02/02/21 15:00 VIKKI Document 02/02/21 14:05 [email or web address] [email or web address] 02/02/21 15:00 VIKKI Document 02/02/21 14:08 [email or web address] [email or web address] 02/02/21 15:00 VIKKI Document 02/02/21 14:10 [email or web address] [email or web address] 02/02/21 15:00 VIKKI Document 02/02/21 14:15 [email or web address] [email or web address] 02/02/21 15:00 VIKKI 02/02/21 02/02/21 02/02/21 14:00 14:05 14:08 Home O2 Evaluation Test Phase Resting Exercise Exercise Oxygen Delivery Room Air Room Air Nasal Cannula Oxygen Flow Rate (L/min) 2 Pulse Oximetry (90-100 %) 94 87 L 87 L Home Oxygen Evaluation Comments Treatment Charges O2 Evaluation - Inpatient 02/02/21 02/02/21 14:10 14:15 Home O2 Evaluation Test Phase Exercise Resting Oxygen Delivery Nasal Cannula Room Air Oxygen Flow Rate (L/min) 3 Pulse Oximetry (90-100 %) 90 94 Home Oxygen Evaluation Comments pt required 3L with activity with Physical therapy Treatment Charges
--- NOTE | 2021-02-02 16:56 | WPDANESEPP ---
Anes - Eval Pre Procedure Procedure: Bronchoscopy Date/Time: 02/02/21 16:56 Surgeon: Dr Maxwell Pre Op Diagnosis: COVID pneumonia suspected with hypoxia Patient Data Age: 55 Gender: F Height: 5 ft 3 in Weight: 131.6 kg Last Vital Signs Temp 98.5 F 02/02/21 14:00 Pulse 82 02/02/21 14:31 Resp 20 02/02/21 14:31 BP 128/57 L 02/02/21 14:00 Pulse Ox 94 02/02/21 14:15 Allergies Allergy/AdvReac Type Severity Reaction Status Date / Time amoxicillin Allergy Severe Hives Verified 01/22/21 20:34 Sulfa (Sulfonamide Allergy Severe Hives Verified 01/22/21 20:35 Antibiotics) amitriptyline AdvReac Mild Unknown Verified 01/22/21 20:34 fentanyl AdvReac Difficulty Verified 01/22/21 20:36 Breathing Home Medications Medication Instructions Recorded Confirmed Type cholecalciferol (vitamin D3) 100 4,000 unit PO DAILY 10/21/19 01/22/21 History mcg (4,000 unit) capsule cyclosporine 0.05 % eye drops 1 drop EACH EYE Q12H 10/21/19 01/22/21 History losartan 50 mg tablet 100 mg PO DAILY 10/21/19 01/22/21 History montelukast 10 mg tablet 10 mg PO DAILY 10/21/19 01/22/21 History albuterol sulfate [ProAir HFA] 1 inh INHALATION QID PRN 01/26/20 01/22/21 History metformin 500 mg PO BID 01/26/20 01/22/21 History pravastatin 20 mg PO DAILY 01/26/20 01/22/21 History fenofibrate nanocrystallized 48 mg 48 mg PO DAILY 07/28/20 01/22/21 History tablet loratadine 10 mg tablet 10 mg PO DAILY 07/28/20 01/22/21 History semaglutide 0.5 mg SUB-Q WEEKLY 07/28/20 01/22/21 History tiotropium bromide 2.5 2 puff INHALATION QAM #4 g 09/30/20 01/22/21 Rx mcg/actuation mist for inhalation omeprazole 20 mg capsule,delayed 20 mg PO DAILY #30 cap 11/02/20 01/22/21 Rx release hydroxychloroquine 200 mg tablet 400 mg PO DAILY #60 tablet 12/01/20 01/22/21 Rx albuterol sulfate 2.5 mg INHALATION QID PRN #360 ml 12/29/20 01/22/21 Rx budesonide-formoterol HFA 160 2 puff INHALATION Q12H #10.2 gm 01/07/21 01/22/21 Rx mcg-4.5 mcg/actuation aerosol inhaler celecoxib 200 mg PO BID 01/22/21 01/22/21 History fluticasone propionate 1 spray INTRANASAL DAILY 01/22/21 01/22/21 History folic acid 3 mg PO DAILY 01/22/21 01/22/21 History leflunomide 20 mg PO DAILY 01/22/21 01/22/21 History levothyroxine [Synthroid] 88 mcg PO DAILY 01/22/21 01/22/21 History spironolactone 50 mg PO DAILY 01/22/21 01/22/21 History cyclobenzaprine [Flexeril] 5 mg PO TID 02/02/21 02/02/21 History Laboratory Tests 02/01/21 02/01/21 02/02/21 17:05 20:10 05:49 Hgb 11.4 g/dL L g/dL (12.0-15.0) Hct 36.4 % L % (37.0-47.0) Sodium Potassium Chloride Carbon Dioxide Anion Gap BUN Creatinine Estim Creat Clear Calc Estimated GFR Glucose POC Capillary Glucose 158 mg/dl H mg/dl 183 mg/dl H mg/dl (65-105) (65-105) Calcium Total Bilirubin AST ALT Alkaline Phosphatase C-Reactive Protein Total Protein Albumin 02/02/21 02/02/21 02/02/21 05:49 08:54 11:54 Hgb Hct Sodium 137 mmol/L mmol/L (137-145) Potassium 3.6 mmol/L mmol/L (3.4-5.0) Chloride 105 mmol/L mmol/L (98-107) Carbon Dioxide 26 mmol/L mmol/L (22-30) Anion Gap 6 mmol/L L mmol/L (8-16) BUN 19 mg/dL H mg/dL (7-17) Creatinine 0.80 mg/dL mg/dL (0.7-1.0) Estim Creat Clear Calc 90 ml/min ml/min Estimated GFR > 60 (59 - ) Glucose 112 mg/dL H mg/dL (65-105) POC Capillary Glucose 128 mg/dl H mg/dl 103 mg/dl mg/dl (65-105) (65-105) Calcium 8.3 mg/dL L mg/dL (8.4-10.2) Total Bilirubin 0.5 mg/dL mg/dL (0.2-1.3) AST 18 U/L U/L (14-36) ALT 17 U/L U/L (4-35) Alkaline Phosphata
--- NOTE | 2021-02-02 17:20 | PM.PNPUL ---
Progress Note: A&P Assessment and Plan (1) Asthma exacerbation: Code(s): J45.901 - Unspecified asthma with (acute) exacerbation Status: Acute Assessment and Plan: Home medicactions: Symbicort 160/4.5 at 2 puffs BID, spireva respimat 2.5 Q am and albuterol inhaler and neb rescue Q 4 PRN 01/24 continue Pulmicort 1 mg q.12 hours nebulized, continue ipratropium 0.5 mg q.6 hours nebulized, continue albuterol 2.5 mg Q 6 hours p.r.n. 01/25 Will change albuterol to Q 6 standing. 01/26 No wheezes on budesonide neb 1 mg Q 12, albuterol 2.5 mg neb Q 6 and ipratroprium neb 0.5 mg Q 6. 01/27 No wheezes continue budesonide neb 1 mg Q 12, albuterol 2.5 mg neb Q 6 and ipratroprium neb 0.5 mg Q 6. 01/29 No wheezes continue budesonide neb 1 mg Q 12, albuterol 2.5 mg neb Q 6 and ipratroprium neb 0.5 mg Q 6 01/30 No wheezes continue budesonide neb 1 mg Q 12, albuterol 2.5 mg neb Q 6 and ipratroprium neb 0.5 mg Q 6 02/02 No wheezes change budesonide neb 0.5 mg Q 12, albuterol 2.5 mg neb Q 6 and ipratroprium neb 0.5 mg Q 6ontinue When stable for discharge place on Symbicort 160/4.5 at 2 puffs BID, spireva respimat 2.5 Q am and albuterol inhaler and neb rescue Q 4 PRN (2) Pneumonia due to COVID-19 virus: Code(s): U07.1 - COVID-19; J12.82 - Pneumonia due to coronavirus disease 2019 Status: Acute Assessment and Plan: Symptoms started 01/19 and Covid positive 01/22. Son was COVID positive 2 weeks ago and recovered. Remdesivir and dexamethasone started on 01/23. Convalescent plasma given 01/25. 01/25 Worsening oxygenation this morning and now requiring 2 L NC for desats on RA to 89%. Convalescent plasma ordered. CT angio negative for PE. Echo with grossly normal LV function. 01/26 Continue remdesivir and dexamethasone. On 1 L NC. 01/27 Continue remdesivir and dexamethasone (today is day 6 of 10). On 1 L NC and stable for last 48 hours, wean as tolerated. Continue for 10 days as she is immunocompromised. I called pharmacy who will enter order for another 5 days. Obtain CXR prior to discharge to serve as baseline for follow up in future. Eventually she will need home O2 assessment day prior to or on day of discharge. 01/29 Day 8 remdesivir and dexamethasone. No progression and remains on 2 L NC. 01/30 Day 9 remdesivir and dex. On 1 L at rest. 01/31 Day 10 remdesivir and dexamethasone. 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 IgG levels are still pending. 01/25 From 01/23 IgA 60 (low, normal 70-400), from 01/23 IgM 37 (low, normal 40-230), IgG 560 (700-1600). Convalescent COVID plasma given 01/23. (4) YOON (obstructive sleep apnea): Code(s): G47.33 - Obstructive sleep apnea (adult) (pediatric) Status: Acute Assessment and Plan: 01/26 Patient wears CPAP 7 RA for YOON for many years. Will place on home unit with 2 L bleed in tonight. 01/27 Tolerated home unit CPAP 7 with 3L bleed in, sats 94%. Wean as tolerated to keep sats > 92 at night. On night prior to discharge she should have Apnea link on room air to determine if she qualifies for nocturnal oxygen. 01/29 Tolerating home CPAP nasal pillows with 3 L with sats 94%. 01/30 Tolerating home unit with 3 L bleed in, On night prior to discharge would perform overnight oximetry on same level of oxygen that she required at rest during the day. 02/02 Patient had an overnight oximetry on her home CPAP with room air and this demonstrated patient's average saturation was 91%, lowest desaturation was 85%, saturations less than or equal to 88% for 5 minutes or 1% of the monitored time. Continue CPAp home machine 7 on RA for now. I spoke with patient and she is agreeable to bronchoscopy. NPO past midnight for bronchoscopy on 02/03 at 14:00. Discussed wtih Mena Carlos, will sign off, call with question
[2021-02-02 17:24] LABS: Glucose Point of Care 96 (65-105)
[2021-02-02] MEDS: BUDESONIDE RESPULE NEB 0.5 MG/2 ML AMP INHALATION (20:22)
[2021-02-02] MEDS: HYDROcodone/acetaminophen (*CRX) 10-325 MG TABLET 1 TAB PO (22:00)
[2021-02-02 23:24] LABS: Glucose Point of Care 127 (65-105)
[2021-02-02 23:24] LABS: Glucose Point of Care 116 (65-105)
[2021-02-03] VITALS (27 sets, daily range): BP systolic 96–134; BP diastolic 46–68; PULSE 75–100; RESP 16–35; TEMP 36.3–37.9; O2SAT 88–100
[2021-02-03] MEDS: ALBUTEROL SULFATE NEB 2.5 MG/0.5 ML INH INHALATION ×4 (01:57→19:59)
[2021-02-03] MEDS: IPRATROPIUM BR 0.02% INH SOLN 0.5 MG/2.5 ML VIAL INHALATION ×4 (01:57→20:00)
[2021-02-03] MEDS: ACETAMINOPHEN 325 MG TABLET 650 MG PO ×2 (05:40→17:40)
[2021-02-03] MEDS: LEVOTHYROXINE SODIUM 88 MCG TABLET PO (05:42)
[2021-02-03 06:23] LABS: Basophils Percent Auto 0.2 % (0.2-1.2); Eosinophils Percent Auto 0.2 % (0-4.4); Hemoglobin 11.1 g/dL (12.0-15.0); Immature Granulocyte Absolute 0.16 K/mm3 (0.00-0.031); Immature Granulocyte Percent A 1.2 % (0-0.5); Lymphocytes Percent Auto 11.6 % (18.3-44.2); Mean Corpuscular HGB Conc 31.7 g/dl (32-36); Mean Corpuscular Hemoglobin 27.5 pg (26-34); Mean Corpuscular Volume 86.8 fl (80-100); Mean Platelet Volume 10.4 fl (7.4-10.4); Monocytes Percent Auto 7.2 % (2.6-8.5); Neutrophils Percent Auto 79.6 % (45.5-73.1); Platelet Count Result 230 k/mm3 (150-375); Red Blood Count 4.03 M/mm3 (4.2-5.4); Red Cell Distribution Width 14.5 % (11.5-14.5); White Blood Count 13.8 K/mm3 (4.5-10.0)
[2021-02-03 06:29] LABS: INR 1.1; Prothrombin Time 14.5 Seconds (11.1-14.7)
[2021-02-03 06:30] LABS: Alanine Aminotransferase 14 U/L (4-35); Albumin Level 2.9 g/dL (3.5-5.1); Alkaline Phosphatase 65 U/L (38-126); Anion Gap 2 mmol/L (8-16); Aspartate Amino Transferase 17 U/L (14-36); Bilirubin,Total 0.6 mg/dL (0.2-1.3); Blood Urea Nitrogen 20 mg/dL (7-17); Calcium 8.1 mg/dL (8.4-10.2); Carbon Dioxide 25 mmol/L (22-30); Chloride 107 mmol/L (98-107); Estimated CRCL calculation 80 ml/min; Estimated Glomerular Filt Rate > 60; Glucose 85 mg/dL (65-105); Potassium 3.5 mmol/L (3.4-5.0); Sodium 134 mmol/L (137-145)
[2021-02-03 06:31] LABS: Partial Thromboplastin Time 33.7 SECONDS (22.3-36.8)
[2021-02-03 06:44] LABS: CRP 14.1 mg/dL (<1.0)
[2021-02-03 08:31] LABS: Glucose Point of Care 85 (65-105)
--- NOTE | 2021-02-03 08:32 | PM.PNPUL ---
Progress Note: A&P Assessment and Plan (1) Asthma exacerbation: Code(s): J45.901 - Unspecified asthma with (acute) exacerbation Status: Acute Assessment and Plan: Home medicactions: Symbicort 160/4.5 at 2 puffs BID, spireva respimat 2.5 Q am and albuterol inhaler and neb rescue Q 4 PRN 01/24 continue Pulmicort 1 mg q.12 hours nebulized, continue ipratropium 0.5 mg q.6 hours nebulized, continue albuterol 2.5 mg Q 6 hours p.r.n. 01/25 Will change albuterol to Q 6 standing. 01/26 No wheezes on budesonide neb 1 mg Q 12, albuterol 2.5 mg neb Q 6 and ipratroprium neb 0.5 mg Q 6. 01/27 No wheezes continue budesonide neb 1 mg Q 12, albuterol 2.5 mg neb Q 6 and ipratroprium neb 0.5 mg Q 6. 01/29 No wheezes continue budesonide neb 1 mg Q 12, albuterol 2.5 mg neb Q 6 and ipratroprium neb 0.5 mg Q 6 01/30 No wheezes continue budesonide neb 1 mg Q 12, albuterol 2.5 mg neb Q 6 and ipratroprium neb 0.5 mg Q 6 02/02 No wheezes change budesonide neb 0.5 mg Q 12, albuterol 2.5 mg neb Q 6 and ipratroprium neb 0.5 mg Q 6 02/03 no wheezes, continue When stable for discharge place on Symbicort 160/4.5 at 2 puffs BID, spireva respimat 2.5 Q am and albuterol inhaler and neb rescue Q 4 PRN (2) Pneumonia due to COVID-19 virus: Code(s): U07.1 - COVID-19; J12.82 - Pneumonia due to coronavirus disease 2019 Status: Acute Assessment and Plan: Symptoms started 01/19 and Covid positive 01/22. Son was COVID positive 2 weeks ago and recovered. Remdesivir and dexamethasone started on 01/23. Convalescent plasma given 01/25. 01/25 Worsening oxygenation this morning and now requiring 2 L NC for desats on RA to 89%. Convalescent plasma ordered. CT angio negative for PE. Echo with grossly normal LV function. 01/26 Continue remdesivir and dexamethasone. On 1 L NC. 01/27 Continue remdesivir and dexamethasone (today is day 6 of 10). On 1 L NC and stable for last 48 hours, wean as tolerated. Continue for 10 days as she is immunocompromised. I called pharmacy who will enter order for another 5 days. Obtain CXR prior to discharge to serve as baseline for follow up in future. Eventually she will need home O2 assessment day prior to or on day of discharge. 01/29 Day 8 remdesivir and dexamethasone. No progression and remains on 2 L NC. 01/30 Day 9 remdesivir and dex. On 1 L at rest. 01/31 Day 10 remdesivir and dexamethasone. 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 IgG levels are still pending. 01/25 From 01/23 IgA 60 (low, normal 70-400), from 01/23 IgM 37 (low, normal 40-230), IgG 560 (700-1600). Convalescent COVID plasma given 01/23. (4) YOON (obstructive sleep apnea): Code(s): G47.33 - Obstructive sleep apnea (adult) (pediatric) Status: Acute Assessment and Plan: 01/26 Patient wears CPAP 7 RA for YOON for many years. Will place on home unit with 2 L bleed in tonight. 01/27 Tolerated home unit CPAP 7 with 3L bleed in, sats 94%. Wean as tolerated to keep sats > 92 at night. On night prior to discharge she should have Apnea link on room air to determine if she qualifies for nocturnal oxygen. 01/29 Tolerating home CPAP nasal pillows with 3 L with sats 94%. 01/30 Tolerating home unit with 3 L bleed in, On night prior to discharge would perform overnight oximetry on same level of oxygen that she required at rest during the day. 02/02 Patient had an overnight oximetry on her home CPAP with room air and this demonstrated patient's average saturation was 91%, lowest desaturation was 85%, saturations less than or equal to 88% for 5 minutes or 1% of the monitored time. Continue CPAp home machine 7 on RA for now. 02/03 on home CPAP 7 with RA. Continue (5) Cavitary pneumonia: Code(s): J18.9 - Pneumonia, unspecified organism; J98.4 - Other disorders of lung S
[2021-02-03] MEDS: ENOXAPARIN 40 MG/0.4 ML SYRINGE SUB-Q (08:50)
[2021-02-03] MEDS: cycloSPORINE 0.4 ML OPHTH SOLUTION 1 DROP EACH EYE ×2 (08:51→20:23)
[2021-02-03] MEDS: BUDESONIDE RESPULE NEB 0.5 MG/2 ML AMP INHALATION ×2 (09:02→20:00)
[2021-02-03 12:20] LABS: Glucose Point of Care 76 (65-105)
--- NOTE | 2021-02-03 12:47 | WPDANESEPPF ---
Anes - Initial Pre Proc Eval Procedure: Operation Date: 02/03/21 15:00 Proposed Procedures p Bronchoscopy with Fluoroscopy - Blayne Maxwell MD Date/Time: 02/03/21 12:47 Surgeon: Melissa Donaldson PA-C Pre Op Diagnosis: COVID pneumonia suspected with hypoxia Patient Data Age: 55 Gender: F Height: 5 ft 3 in Weight: 131.6 kg Last Vital Signs Temp 100.1 F H 02/03/21 06:40 Pulse 87 02/03/21 09:21 Resp 18 02/03/21 09:21 BP 115/47 L 02/03/21 08:41 Pulse Ox 92 02/03/21 09:02 Allergies Allergy/AdvReac Type Severity Reaction Status Date / Time amoxicillin Allergy Severe Hives Verified 01/22/21 20:34 Sulfa (Sulfonamide Allergy Severe Hives Verified 01/22/21 20:35 Antibiotics) amitriptyline AdvReac Mild Unknown Verified 01/22/21 20:34 fentanyl AdvReac Difficulty Verified 01/22/21 20:36 Breathing Home Medications Medication Instructions Recorded Confirmed Type cholecalciferol (vitamin D3) 100 4,000 unit PO DAILY 10/21/19 01/22/21 History mcg (4,000 unit) capsule cyclosporine 0.05 % eye drops 1 drop EACH EYE Q12H 10/21/19 01/22/21 History losartan 50 mg tablet 100 mg PO DAILY 10/21/19 01/22/21 History montelukast 10 mg tablet 10 mg PO DAILY 10/21/19 01/22/21 History albuterol sulfate [ProAir HFA] 1 inh INHALATION QID PRN 01/26/20 01/22/21 History metformin 500 mg PO BID 01/26/20 01/22/21 History pravastatin 20 mg PO DAILY 01/26/20 01/22/21 History fenofibrate nanocrystallized 48 mg 48 mg PO DAILY 07/28/20 01/22/21 History tablet loratadine 10 mg tablet 10 mg PO DAILY 07/28/20 01/22/21 History semaglutide 0.5 mg SUB-Q WEEKLY 07/28/20 01/22/21 History tiotropium bromide 2.5 2 puff INHALATION QAM #4 g 09/30/20 01/22/21 Rx mcg/actuation mist for inhalation omeprazole 20 mg capsule,delayed 20 mg PO DAILY #30 cap 11/02/20 01/22/21 Rx release hydroxychloroquine 200 mg tablet 400 mg PO DAILY #60 tablet 12/01/20 01/22/21 Rx albuterol sulfate 2.5 mg INHALATION QID PRN #360 ml 12/29/20 01/22/21 Rx budesonide-formoterol HFA 160 2 puff INHALATION Q12H #10.2 gm 01/07/21 01/22/21 Rx mcg-4.5 mcg/actuation aerosol inhaler celecoxib 200 mg PO BID 01/22/21 01/22/21 History fluticasone propionate 1 spray INTRANASAL DAILY 01/22/21 01/22/21 History folic acid 3 mg PO DAILY 01/22/21 01/22/21 History leflunomide 20 mg PO DAILY 01/22/21 01/22/21 History levothyroxine [Synthroid] 88 mcg PO DAILY 01/22/21 01/22/21 History spironolactone 50 mg PO DAILY 01/22/21 01/22/21 History cyclobenzaprine [Flexeril] 5 mg PO TID 02/02/21 02/02/21 History Laboratory Tests 02/02/21 02/02/21 02/02/21 17:21 21:12 21:57 WBC RBC Hgb Hct MCV MCH MCHC RDW Plt Count MPV Immature Gran % (Auto) Neut % (Auto) Lymph % (Auto) Hinds % (Auto) Eos % (Auto) Baso % (Auto) Lymph # (Auto) Hinds # (Auto) Eos # (Auto) Baso # (Auto) Abs Immat Gran (auto) Absolute Neuts (auto) Absolute Nucleated RBC Nucleated RBC % PT INR APTT Sodium Potassium Chloride Carbon Dioxide Anion Gap BUN Creatinine Estim Creat Clear Calc Estimated GFR Glucose POC Capillary Glucose 96 mg/dl mg/dl 127 mg/dl H mg/dl 116 mg/dl H mg/dl (65-105) (65-105) (65-105) Calcium Magnesium Total Bilirubin AST ALT Alkaline Phosphatase C-Reactive Protein Total Protein Albumin 02/03/21 02/03/21 02/03/21 05:42 05:42 05:42 WBC 13.8 K/mm3 H K/mm3 (4.5-10.0) RBC 4.03 M/mm3 L M
--- NOTE | 2021-02-03 13:07 | PM.IMPN ---
Progress Note: A&P Assessment and Plan (1) Acute respiratory failure with hypoxia: Code(s): J96.01 - Acute respiratory failure with hypoxia Status: Resolved Assessment and Plan: Per ER documentation, she was noted to be hypoxic down to 87% upon arrival. [place] to be secondary to COVID-19 pneumonia. CTA on 01/25 negative for PE but did demonstrate moderate bilateral airspace disease consistent with COVID pneumonia. Echocardiogram evaluated given hypoxia with normal LV systolic function and no additional acute findings. She required up to 4 L supplemental O2 but has been weaned to room air at rest. She is requiring 3 liters with exertion. Continue supplemental oxygen as needed to maintain oxygen saturation 90% or above, wean as tolerated Anticipate that she will need home oxygen with exertion and repeat home oxygen evaluation was ordered (2) Necrotizing pneumonia: Code(s): J85.0 - Gangrene and necrosis of lung Status: Acute Assessment and Plan: CT chest ordered given suggestion of cavitation on CXR. CT chest findings suggest necrotizing pneumonia. Bronchoscopy performed today with results pending. Pulmonology and infectious disease following Discussed with pulmonology and infectious disease who recommended bronchoscopy. Results pending. Blood cultures obtained due to elevated WBC 13,800 and temperature 100.3F. Pneumonia suspected and awaiting bronchoscopy results. Discussed with collaborating physician and infectious disease and will start empiric imipenem and vancomycin given fever, elevated WBC, purulent secretion on bronchoscopy per ID recommendations. Check procalcitonin. (3) Pneumonia due to COVID-19 virus: Code(s): U07.1 - COVID-19; J12.82 - Pneumonia due to coronavirus disease 2019 Status: Acute Assessment and Plan: Symptoms started 2-3 days prior to admission. She was exposed to her son who was positive 2 weeks prior. SARS-CoV-2 testing performed 01/22/21 was positive. CXR showed extensive pulmonary infiltrates. She received 10 days of IV Remdesivir which was extended due to her immunocompromised status based on pulmonology recommendations. Shows completed 10 days of IV dexamethasone. She received convalescent plasma on 01/25/2021. Supportive care was provided including bronchodilators, expectorants, incentive spirometry, and PEP therapy. She cannot get her COVID vaccine until April 29, 2021, appreciate ID input. (4) Hemoptysis: Code(s): R04.2 - Hemoptysis Status: Resolved Assessment and Plan: Resolved. She had a moderate amount of hemoptysis on 01/28. She had a CTA on 01/25 with limited segmental evaluation, but no pulmonary embolism was suspected. No tachypnea or tachycardia. Wells score for PE is 1.0, indicating low risk. Hemoptysis has resolved with decreased dose of lovenox from 40 mg bid to 40 mg daily. 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 She was seen by Infectious Disease and this was not felt to be pathogenic so antifungal was not recommended per ID. Now, CT chest is showing necrotizing pneumonia. Discussed with pulmonology and infectious disease who are following. Given CT findings of necrotizing pneumonia, she underwent bronchoscopy with further treatment plan to be determined based on bronchoscopy results. Await infectious disease and pulmonology input. (6) LISA (acute kidney injury): Code(s): N17.9 - Acute kidney failure, unspecified Status: Resolved Assessment and Plan: Resolved. Baseline creatinine is 0.8-1.0. Creatinine was 1.2 on admission and increased to 1.4 on 01/24. Suspect this was pre-renal secondary to dehydration given rapid improvement with IV fluids. Renal function returned to baseline Continue to monit
[2021-02-03 13:39] LABS: Glucose Point of Care 79 (65-105)
[2021-02-03] MEDS: LACTATED RINGERS 1,000 ML 150 ML IV CONT (14:15)
--- NOTE | 2021-02-03 14:51 | PCPTNOTE ---
The patient treatment was not able to be completed today due to patient out of room for procedure. Will plan to continue treatment per plan of care.
[2021-02-03] MEDS: SODIUM CHLORIDE 0.9% IV 500 ML BAG 165 ML IRRIGATION (15:11)
--- NOTE | 2021-02-03 15:24 | SUR.PHASEII ---
1515 Pt into post-op area for recovery. Coughing, but denies pain. Lungs diminished and coarse throughout. VSS.
[2021-02-03 15:31] LABS: Glucose Point of Care 84 (65-105)
--- NOTE | 2021-02-03 15:43 | SUR.PHASEII ---
1535 Pt c/o SOB. Continuous coughing. Dr. Maxwell notified. Respiratory on their way to administer Albuterol tx. 1543 Dr. Maxwell at bedside. Chest x-ray reviewed at bedside.
--- NOTE | 2021-02-03 16:06 | SUR.PHASEII ---
Pt's oxygen saturation at 88-90% on 2L O2 nasal cannula. Vern Masterson CRNA called. Per Vern, patient placed on 6L O2 via nasal cannula.
[2021-02-03 17:34] LABS: Glucose Point of Care 90 (65-105)
[2021-02-03] MEDS: FLUTICASONE PROPIONATE 0.05% NA SPR 16 GM BTL (*BKC) 1 SPRAY NASAL (17:46)
[2021-02-03 18:48] LABS: Appearance Bronchial Fluid Bloody; Color Bronchial Fluid Red; Source Bronchial Fluid Bronchial Lavage
[2021-02-03 18:49] LABS: Eosinophils Bronchial Fluid 0 %; Lymphocytes Bronchial Fluid 1 %; Macrophages Bronchial Fluid 4; Monocytes Bronchial Fluid 0 %; Neutrophils Bronchial Fluid 95 %; Other Cells Bronchial Fluid 0 %
[2021-02-03] MEDS: metFORMIN HCL 500 MG TABLET PO (20:21)
[2021-02-03] MEDS: guaiFENesin 12 HR 600 MG TABCR 1200 MG PO (20:22)
[2021-02-03 21:45] LABS: Glucose Point of Care 193 (65-105)
[2021-02-04] VITALS (12 sets, daily range): BP systolic 102–132; BP diastolic 60–71; PULSE 60–89; RESP 16–22; TEMP 36.3–37.1; O2SAT 94–96
[2021-02-04] MEDS: ALBUTEROL SULFATE NEB 2.5 MG/0.5 ML INH INHALATION ×4 (01:34→19:44)
[2021-02-04] MEDS: IPRATROPIUM BR 0.02% INH SOLN 0.5 MG/2.5 ML VIAL INHALATION ×4 (01:35→19:44)
[2021-02-04] MEDS: WATER FOR IRRIGATION, STERILE 1,000 ML BOTTLE 1000 ML (03:50)
[2021-02-04] MEDS: LEVOTHYROXINE SODIUM 88 MCG TABLET PO (05:48)
[2021-02-04] MEDS: ACETAMINOPHEN 325 MG TABLET 650 MG PO ×3 (06:01→20:58)
[2021-02-04 06:26] LABS: Basophils Percent Auto 0.2 % (0.2-1.2); Hematocrit 33.1 % (37.0-47.0); Hemoglobin 10.4 g/dL (12.0-15.0); Immature Granulocyte Absolute 0.09 K/mm3 (0.00-0.031); Immature Granulocyte Percent A 0.8 % (0-0.5); Lymphocytes Absolute Auto 0.86 K/mm3 (0.9-3.2); Lymphocytes Percent Auto 7.8 % (18.3-44.2); Mean Corpuscular HGB Conc 31.4 g/dl (32-36); Mean Corpuscular Hemoglobin 27.3 pg (26-34); Mean Corpuscular Volume 86.9 fl (80-100); Mean Platelet Volume 10.1 fl (7.4-10.4); Monocytes Absolute Auto 0.5 K/mm3 (0.1-0.6); Monocytes Percent Auto 4.3 % (2.6-8.5); Neutrophils Absolute Auto 9.5 K/mm3 (1.3-6.7); Neutrophils Percent Auto 86.9 % (45.5-73.1); Platelet Count Result 232 k/mm3 (150-375); Red Blood Count 3.81 M/mm3 (4.2-5.4); Red Cell Distribution Width 14.5 % (11.5-14.5)
[2021-02-04 06:45] LABS: Anion Gap 1 mmol/L (8-16); Blood Urea Nitrogen 15 mg/dL (7-17); Calcium 7.9 mg/dL (8.4-10.2); Carbon Dioxide 30 mmol/L (22-30); Chloride 104 mmol/L (98-107); Estimated CRCL calculation 101 ml/min; Estimated Glomerular Filt Rate > 60; Glucose 155 mg/dL (65-105); Magnesium 2.3 mg/dL (1.6-2.3); Potassium 3.8 mmol/L (3.4-5.0); Sodium 135 mmol/L (137-145)
[2021-02-04 06:51] LABS: CRP 19.8 mg/dL (<1.0)
[2021-02-04] MEDS: BUDESONIDE RESPULE NEB 0.5 MG/2 ML AMP INHALATION ×2 (07:44→19:44)
[2021-02-04 07:48] LABS: Glucose Point of Care 114 (65-105)
[2021-02-04] MEDS: metFORMIN HCL 500 MG TABLET PO ×2 (07:56→17:16)
[2021-02-04] MEDS: guaiFENesin 12 HR 600 MG TABCR 1200 MG PO ×2 (07:57→20:37)
[2021-02-04] MEDS: LORATADINE 10 MG TABLET PO (07:57)
[2021-02-04] MEDS: CHOLECALCIFEROL 1,000 UNITS TABLET 4000 UNITS PO (07:57)
[2021-02-04] MEDS: PANTOPRAZOLE 40 MG TABLET PO (07:57)
[2021-02-04] MEDS: FOLIC ACID 1 MG TABLET 3 MG PO (07:58)
[2021-02-04] MEDS: LOSARTAN POTASSIUM 50 MG TABLET 100 MG PO (07:58)
[2021-02-04] MEDS: ENOXAPARIN 40 MG/0.4 ML SYRINGE SUB-Q (07:58)
[2021-02-04] MEDS: MONTELUKAST SODIUM 10 MG TABLET PO (07:59)
[2021-02-04] MEDS: PRAVASTATIN SODIUM 20 MG TABLET PO (08:00)
[2021-02-04] MEDS: FLUTICASONE PROPIONATE 0.05% NA SPR 16 GM BTL (*BKC) 1 SPRAY NASAL (08:00)
[2021-02-04] MEDS: FENOFIBRATE,MICRONIZED 48 MG TABLET PO (08:00)
[2021-02-04] MEDS: cycloSPORINE 0.4 ML OPHTH SOLUTION 1 DROP EACH EYE ×2 (08:00→20:38)
--- NOTE | 2021-02-04 08:26 | PM.PNPUL ---
Progress Note: A&P Assessment and Plan (1) Asthma exacerbation: Code(s): J45.901 - Unspecified asthma with (acute) exacerbation Status: Acute Assessment and Plan: Home medicactions: Symbicort 160/4.5 at 2 puffs BID, spireva respimat 2.5 Q am and albuterol inhaler and neb rescue Q 4 PRN 01/24 continue Pulmicort 1 mg q.12 hours nebulized, continue ipratropium 0.5 mg q.6 hours nebulized, continue albuterol 2.5 mg Q 6 hours p.r.n. 01/25 Will change albuterol to Q 6 standing. 01/26 No wheezes on budesonide neb 1 mg Q 12, albuterol 2.5 mg neb Q 6 and ipratroprium neb 0.5 mg Q 6. 01/27 No wheezes continue budesonide neb 1 mg Q 12, albuterol 2.5 mg neb Q 6 and ipratroprium neb 0.5 mg Q 6. 01/29 No wheezes continue budesonide neb 1 mg Q 12, albuterol 2.5 mg neb Q 6 and ipratroprium neb 0.5 mg Q 6 01/30 No wheezes continue budesonide neb 1 mg Q 12, albuterol 2.5 mg neb Q 6 and ipratroprium neb 0.5 mg Q 6 02/02 No wheezes change budesonide neb 0.5 mg Q 12, albuterol 2.5 mg neb Q 6 and ipratroprium neb 0.5 mg Q 6 02/03 no wheezes, continue 02/04 No wheezes, will switch to Q4H while awake to avoid night time awakenings. When stable for discharge place on Symbicort 160/4.5 at 2 puffs BID, spireva respimat 2.5 Q am and albuterol inhaler and neb rescue Q 4 PRN (2) Pneumonia due to COVID-19 virus: Code(s): U07.1 - COVID-19; J12.82 - Pneumonia due to coronavirus disease 2019 Status: Acute Assessment and Plan: Symptoms started 01/19 and Covid positive 01/22. Son was COVID positive 2 weeks ago and recovered. Remdesivir and dexamethasone started on 01/23. Convalescent plasma given 01/25. 01/25 Worsening oxygenation this morning and now requiring 2 L NC for desats on RA to 89%. Convalescent plasma ordered. CT angio negative for PE. Echo with grossly normal LV function. 01/26 Continue remdesivir and dexamethasone. On 1 L NC. 01/27 Continue remdesivir and dexamethasone (today is day 6 of 10). On 1 L NC and stable for last 48 hours, wean as tolerated. Continue for 10 days as she is immunocompromised. I called pharmacy who will enter order for another 5 days. Obtain CXR prior to discharge to serve as baseline for follow up in future. Eventually she will need home O2 assessment day prior to or on day of discharge. 01/29 Day 8 remdesivir and dexamethasone. No progression and remains on 2 L NC. 01/30 Day 9 remdesivir and dex. On 1 L at rest. 01/31 Day 10 remdesivir and dexamethasone. Completed treatment. 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 IgG levels are still pending. 01/25 From 01/23 IgA 60 (low, normal 70-400), from 01/23 IgM 37 (low, normal 40-230), IgG 560 (700-1600). Convalescent COVID plasma given 01/23. (4) YOON (obstructive sleep apnea): Code(s): G47.33 - Obstructive sleep apnea (adult) (pediatric) Status: Acute Assessment and Plan: 01/26 Patient wears CPAP 7 RA for YOON for many years. Will place on home unit with 2 L bleed in tonight. 01/27 Tolerated home unit CPAP 7 with 3L bleed in, sats 94%. Wean as tolerated to keep sats > 92 at night. On night prior to discharge she should have Apnea link on room air to determine if she qualifies for nocturnal oxygen. 01/29 Tolerating home CPAP nasal pillows with 3 L with sats 94%. 01/30 Tolerating home unit with 3 L bleed in, On night prior to discharge would perform overnight oximetry on same level of oxygen that she required at rest during the day. 02/02 Patient had an overnight oximetry on her home CPAP with room air and this demonstrated patient's average saturation was 91%, lowest desaturation was 85%, saturations less than or equal to 88% for 5 minutes or 1% of the monitored time. Continue CPAp home machine 7 on RA for now. 02/03 on home CPAP 7 with RA. Continue (5) Cavitary pneumon
--- NOTE | 2021-02-04 11:22 | PM.IMPN ---
Progress Note: A&P Assessment and Plan (1) Acute respiratory failure with hypoxia: Code(s): J96.01 - Acute respiratory failure with hypoxia Status: Resolved Assessment and Plan: Per ER documentation, she was noted to be hypoxic down to 87% upon arrival. [place] to be secondary to COVID-19 pneumonia. CTA on 01/25 negative for PE but did demonstrate moderate bilateral airspace disease consistent with COVID pneumonia. Echocardiogram evaluated given hypoxia with normal LV systolic function and no additional acute findings. She required up to 4 L supplemental O2 but has been weaned to room air at rest. She is requiring 3 liters with exertion. Continue supplemental oxygen as needed to maintain oxygen saturation 90% or above, wean as tolerated Anticipate that she will need home oxygen with exertion and repeat home oxygen evaluation was ordered (2) Necrotizing pneumonia: Code(s): J85.0 - Gangrene and necrosis of lung Status: Acute Assessment and Plan: CT chest ordered given suggestion of cavitation on CXR. CT chest findings suggest necrotizing pneumonia. Bronchoscopy performed 02/04 with purulent secretions from the right and left lung. preliminary bronchial washing at carinal showing gram positive cocci in clusters and aspirate culture showing mixed bacterial ghazala. She developed low grade fever 02/03 with Tmax 100.3F. WBC elevated to 13,800 02/03 but improving. Preliminary blood cultures obtained 02/03/21 demonstrate NGTD. Pulmonology and infectious disease following Continue empiric imipenem and vancomycin, await ID input regarding antibiotic therapy Await pathology, cytology, bacterial, fungal, and AFB smear and culture results, tailor antibiotics accordingly Continue supportive care (3) Pneumonia due to COVID-19 virus: Code(s): U07.1 - COVID-19; J12.82 - Pneumonia due to coronavirus disease 2019 Status: Acute Assessment and Plan: Symptoms started 2-3 days prior to admission. She was exposed to her son who was positive 2 weeks prior. SARS-CoV-2 testing performed 01/22/21 was positive. CXR showed extensive pulmonary infiltrates. She received 10 days of IV Remdesivir which was extended due to her immunocompromised status based on pulmonology recommendations. Shows completed 10 days of IV dexamethasone. She received convalescent plasma on 01/25/2021. Supportive care was provided including bronchodilators, expectorants, incentive spirometry, and PEP therapy. She cannot get her COVID vaccine until April 29, 2021, appreciate ID input. (4) Hemoptysis: Code(s): R04.2 - Hemoptysis Status: Resolved Assessment and Plan: Resolved. She had a moderate amount of hemoptysis on 01/28. She had a CTA on 01/25 with limited segmental evaluation, but no pulmonary embolism was suspected. No tachypnea or tachycardia. Wells score for PE is 1.0, indicating low risk. Hemoptysis has resolved with decreased dose of lovenox from 40 mg bid to 40 mg daily. 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 She was seen by Infectious Disease and this was not felt to be pathogenic so antifungal was not recommended per ID. Pneumonia suspected to be bacterial as opposed to fungal. Discussed with pulmonology and infectious disease who are following. Given CT findings of necrotizing pneumonia, she underwent bronchoscopy. Fungal smear from bronchial washing at carinal and BAL LLL demonstrate no fungal elements. Final culture is in progress. Infectious disease following with management deferred to ID (6) LISA (acute kidney injury): Code(s): N17.9 - Acute kidney failure, unspecified Status: Resolved Assessment and Plan: Resolved. Baseline creatinine is 0.8-1.0. Creatinine was 1.2 on admission and inc
[2021-02-04 11:34] LABS: Glucose Point of Care 92 (65-105)
[2021-02-04 17:10] LABS: Glucose Point of Care 107 (65-105)
[2021-02-05] VITALS (14 sets, daily range): BP systolic 114–118; BP diastolic 55–59; PULSE 58–97; RESP 16–24; TEMP 36.4–37.2; O2SAT 91–100
--- NOTE | 2021-02-05 | ECHOL_ITS ---
Patient Info Name: Karen Em Age: 55 years : 1965 Gender: Female Ht: 63 in Wt: 290 lbs BSA: 2.50 m2 HR: 84 bpm BP: 116 / 55 mmHg Heart Rhythm: Sinus Rhythm Technical Quality: Fair Exam Date: 02/05/2021 10:38 AM Exam Location: [facility] Card Pulmonary Patient Status: Inpatient Admit Date: 01/24/2021 Staff Ordering Physician: Blayne Maxwell MD Golf Course Patroller: Shantell Kimball RDCS Attending Provider: Melissa Donaldson PA-C Referring Physician: Hans RAO; Exam Type: CA echo limited Study Info Indications - ASSESS VALVES FOR ENDOCARDITIS Limited two-dimensional transthoracic echocardiogram is performed. Summary 1. Technically difficult study with limited views. Regional wall motion assessment limited due to poor endomyocardial border definition. Repeat complete study with definity contrast enhancement if clinically indicated. 2. Left ventricular systolic function is normal, estimated at 65-70%. 3. There is a small pericardial effusion. Left Ventricle Left ventricular systolic function is normal, estimated at 65-70%. Technically difficult study with limited views. Regional wall motion assessment limited due to poor endomyocardial border definition. Repeat complete study with definity contrast enhancement if clinically indicated. Right Ventricle Right ventricular chamber dimension is normal. Right ventricular systolic function is normal. Left Atria Left atrial chamber dimension is normal. Right Atria Right atrial chamber dimension is not well visualized. Aortic Valve The aortic valve is not well visualized. There is no aortic valve regurgitation. Pulmonic Valve The pulmonic valve is not well visualized. Mitral Valve The mitral valve has normal leaflets. There is trace mitral valve regurgitation. The mitral valve annulus is mildly calcified. Tricuspid Valve The tricuspid valve leaflets are not well visualized. Pericardium/Pleural The pericardium appears normal. There is a small pericardial effusion. Aorta The aortic root size at the sinus of Valsalva is not well visualized. Report Signatures
[2021-02-05] MEDS: ALBUTEROL SULFATE NEB 2.5 MG/0.5 ML INH INHALATION ×5 (01:56→20:41)
[2021-02-05] MEDS: IPRATROPIUM BR 0.02% INH SOLN 0.5 MG/2.5 ML VIAL INHALATION ×5 (01:56→20:41)
[2021-02-05 03:14] LABS: Glucose Point of Care 102 (65-105)
[2021-02-05 03:24] LABS: Basophils Percent Auto 0.3 % (0.2-1.2); Eosinophils Absolute Auto 0.1 K/mm3 (0-0.3); Eosinophils Percent Auto 0.6 % (0-4.4); Immature Granulocyte Absolute 0.07 K/mm3 (0.00-0.031); Immature Granulocyte Percent A 0.7 % (0-0.5); Lymphocytes Absolute Auto 1.39 K/mm3 (0.9-3.2); Mean Corpuscular HGB Conc 31.4 g/dl (32-36); Mean Corpuscular Hemoglobin 27.8 pg (26-34); Mean Corpuscular Volume 88.6 fl (80-100); Mean Platelet Volume 10.2 fl (7.4-10.4); Monocytes Absolute Auto 0.8 K/mm3 (0.1-0.6); Monocytes Percent Auto 7.6 % (2.6-8.5); Neutrophils Absolute Auto 8.3 K/mm3 (1.3-6.7); Neutrophils Percent Auto 77.8 % (45.5-73.1); Platelet Count Result 238 k/mm3 (150-375); Red Blood Count 3.95 M/mm3 (4.2-5.4); Red Cell Distribution Width 14.3 % (11.5-14.5); White Blood Count 10.7 K/mm3 (4.5-10.0)
[2021-02-05] MEDS: guaiFENesin/CODEINE (*CRX) 200/20 MG 10 ML SYRUP PO (03:25)
[2021-02-05 03:55] LABS: Anion Gap 4 mmol/L (8-16); Blood Urea Nitrogen 17 mg/dL (7-17); CRP 12.2 mg/dL (<1.0); Calcium 8.7 mg/dL (8.4-10.2); Carbon Dioxide 28 mmol/L (22-30); Chloride 104 mmol/L (98-107); Estimated CRCL calculation 90 ml/min; Estimated Glomerular Filt Rate > 60; Glucose 101 mg/dL (65-105); Potassium 3.7 mmol/L (3.4-5.0); Sodium 136 mmol/L (137-145)
[2021-02-05 04:00] LABS: Vancomycin Trough 13.8 ug/mL (10.0-20.0)
[2021-02-05] MEDS: LEVOTHYROXINE SODIUM 88 MCG TABLET PO (06:04)
[2021-02-05 07:25] LABS: Glucose Point of Care 99 (65-105)
[2021-02-05] MEDS: metFORMIN HCL 500 MG TABLET PO ×2 (07:46→17:11)
[2021-02-05] MEDS: CHOLECALCIFEROL 1,000 UNITS TABLET 4000 UNITS PO (07:46)
[2021-02-05] MEDS: FLUTICASONE PROPIONATE 0.05% NA SPR 16 GM BTL (*BKC) 1 SPRAY NASAL (07:46)
[2021-02-05] MEDS: PANTOPRAZOLE 40 MG TABLET PO (07:47)
[2021-02-05] MEDS: guaiFENesin 12 HR 600 MG TABCR 1200 MG PO ×2 (07:47→20:35)
[2021-02-05] MEDS: FOLIC ACID 1 MG TABLET 3 MG PO (07:48)
[2021-02-05] MEDS: ENOXAPARIN 40 MG/0.4 ML SYRINGE SUB-Q (07:50)
[2021-02-05] MEDS: LOSARTAN POTASSIUM 50 MG TABLET 100 MG PO (07:50)
[2021-02-05] MEDS: LORATADINE 10 MG TABLET PO (07:50)
[2021-02-05] MEDS: PRAVASTATIN SODIUM 20 MG TABLET PO (07:50)
[2021-02-05] MEDS: FENOFIBRATE,MICRONIZED 48 MG TABLET PO (07:51)
[2021-02-05] MEDS: cycloSPORINE 0.4 ML OPHTH SOLUTION 1 DROP EACH EYE ×2 (07:51→20:35)
[2021-02-05] MEDS: BUDESONIDE RESPULE NEB 0.5 MG/2 ML AMP INHALATION ×2 (08:01→20:41)
--- NOTE | 2021-02-05 08:06 | ECG_ITS ---
Measurements Intervals [place] Rate: 86 P: 26 MI: 139 QRS: 41 QRSD: 81 T: 29 QT: 348 QTc: 417 Interpretive Statements SINUS RHYTHM ATRIAL PREMATURE COMPLEX DELAYED PRECORDIAL R/S TRANSITION BASELINE ARTIFACT- I, II, III, AVR, AVL BORDERLINE ECG Electronically Signed On 02-05-2021 8:45:58 CDT by Jake Cassidy D.O.
[2021-02-05] MEDS: ACETAMINOPHEN 325 MG TABLET 650 MG PO (08:40)
[2021-02-05 08:47] LABS: D Dimer 2.04 ug/mL (<0.48)
[2021-02-05 08:54] LABS: Troponin I < 0.012 ng/mL (0.000-0.034)
[2021-02-05] MEDS: traMADol HCL (*CRX) 25 MG TABLET PO ×3 (09:46→20:34)
[2021-02-05] MEDS: MONTELUKAST SODIUM 10 MG TABLET PO (09:48)
--- NOTE | 2021-02-05 09:54 | P.PNPL_ITS ---
Progress Note: A&P Assessment and Plan (1) Asthma exacerbation: Code(s): J45.901 - Unspecified asthma with (acute) exacerbation Status: Acute Assessment and Plan: Home medicactions: Symbicort 160/4.5 at 2 puffs BID, spireva respimat 2.5 Q am and albuterol inhaler and neb rescue Q 4 PRN 01/24 continue Pulmicort 1 mg q.12 hours nebulized, continue ipratropium 0.5 mg q.6 hours nebulized, continue albuterol 2.5 mg Q 6 hours p.r.n. 01/25 Will change albuterol to Q 6 standing. 01/26 No wheezes on budesonide neb 1 mg Q 12, albuterol 2.5 mg neb Q 6 and ipratroprium neb 0.5 mg Q 6. 01/27 No wheezes continue budesonide neb 1 mg Q 12, albuterol 2.5 mg neb Q 6 and ipratroprium neb 0.5 mg Q 6. 01/29 No wheezes continue budesonide neb 1 mg Q 12, albuterol 2.5 mg neb Q 6 and ipratroprium neb 0.5 mg Q 6 01/30 No wheezes continue budesonide neb 1 mg Q 12, albuterol 2.5 mg neb Q 6 and ipratroprium neb 0.5 mg Q 6 02/02 No wheezes change budesonide neb 0.5 mg Q 12, albuterol 2.5 mg neb Q 6 and ipratroprium neb 0.5 mg Q 6 02/03 no wheezes, continue 02/04 No wheezes, will switch to Q4H while awake to avoid night time awakenings. 02/05 No wheezes, When stable for discharge place on Symbicort 160/4.5 at 2 puffs BID, spireva respimat 2.5 Q am and albuterol inhaler and neb rescue Q 4 PRN (2) Pneumonia due to COVID-19 virus: Code(s): U07.1 - COVID-19; J12.82 - Pneumonia due to coronavirus disease 2019 Status: Acute Assessment and Plan: Symptoms started 01/19 and Covid positive 01/22. Son was COVID positive 2 weeks ago and recovered. Remdesivir and dexamethasone started on 01/23. Convalescent plasma given 01/25. 01/25 Worsening oxygenation this morning and now requiring 2 L NC for desats on RA to 89%. Convalescent plasma ordered. CT angio negative for PE. Echo with grossly normal LV function. 01/26 Continue remdesivir and dexamethasone. On 1 L NC. 01/27 Continue remdesivir and dexamethasone (today is day 6 of 10). On 1 L NC and stable for last 48 hours, wean as tolerated. Continue for 10 days as she is immunocompromised. I called pharmacy who will enter order for another 5 days. Obtain CXR prior to discharge to serve as baseline for follow up in future. Eventually she will need home O2 assessment day prior to or on day of discharge. 01/29 Day 8 remdesivir and dexamethasone. No progression and remains on 2 L NC. 01/30 Day 9 remdesivir and dex. On 1 L at rest. 01/31 Day 10 remdesivir and dexamethasone. Completed treatment. 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 IgG levels are still pending. 01/25 From 01/23 IgA 60 (low, normal 70-400), from 01/23 IgM 37 (low, normal 40- 230), IgG 560 (700-1600). Convalescent COVID plasma given 01/23. (4) YOON (obstructive sleep apnea): Code(s): G47.33 - Obstructive sleep apnea (adult) (pediatric) Status: Acute Assessment and Plan: 01/26 Patient wears CPAP 7 RA for YOON for many years. Will place on home unit with 2 L bleed in tonight. 01/27 Tolerated home unit CPAP 7 with 3L bleed in, sats 94%. Wean as tolerated to keep sats > 92 at night. On night prior to discharge she should have Apnea link on room air to determine if she qualifies for nocturnal oxygen. 01/29 Tolerating home CPAP nasal pillows with 3 L with sats 94%. 01/30 Tolerating home unit with 3 L bleed in, On night prior to discharge would perform overnight oximetry on same level of oxygen that she required at rest during the day. 02/02 Skylar
[2021-02-05 11:47] LABS: Glucose Point of Care 112 (65-105)
--- NOTE | 2021-02-05 13:09 | PM.IMPN ---
Progress Note: A&P Assessment and Plan (1) Staphylococcus aureus pneumonia: Code(s): J15.211 - Pneumonia due to Methicillin susceptible Staphylococcus aureus Status: Acute Assessment and Plan: CXR performed on 02/02/21 demonstrated new focal consolidation consistent with cavitation. CT chest was ordered and suggested necrotizing pneumonia. Pulmonology was on board and ID was consulted and recommended bronchoscopy for further evaluation. Bronchoscopy was performed 02/04/21 and demonstrated purulent secretions from the right and left lung. She developed low grade fever with Tmax 100.3F on 02/03 and WBC was elevated to 13,800. Blood cultures were obtained and she was treated with empiric IV vancomycin and imipenem (initiated 02/03/21) per infectious disease recommendations. WBC is improving and she is afebrile. Pulmonology and infectious disease are on board Continue vancomycin, stop imipenem since Staphylococcus aureus was isolated. Await infectious disease recommendations for duration of therapy. Preliminary blood cultures obtained 02/03/21 demonstrate NGTD Await final cultures from bronchial washing, preliminary showing Staphylococcus aureus with susceptibilities pending Echo ordered to assess valves, results pending (2) Necrotizing pneumonia: Code(s): J85.0 - Gangrene and necrosis of lung Status: Acute Assessment and Plan: As above. Await further infectious disease input regarding antibiotics and duration of therapy. Pulmonology is following as well. (3) Acute respiratory failure with hypoxia: Code(s): J96.01 - Acute respiratory failure with hypoxia Status: Resolved Assessment and Plan: Secondary to COVID-19 pneumonia initially. Now pt has secondary bacterial pneumonia. She is on room air at rest but does require 3 liters per nasal cannula with exertion. Continue supplemental oxygen as needed to maintain oxygen saturation 90% or above, wean as tolerated (4) Pneumonia due to COVID-19 virus: Code(s): U07.1 - COVID-19; J12.82 - Pneumonia due to coronavirus disease 2019 Status: Acute Assessment and Plan: Symptoms started 2-3 days prior to admission. She was exposed to her son who was positive 2 weeks prior. SARS-CoV-2 testing performed 01/22/21 was positive. CXR showed extensive pulmonary infiltrates. She received 10 days of IV Remdesivir which was extended due to her immunocompromised status based on pulmonology recommendations. Shows completed 10 days of IV dexamethasone. She received convalescent plasma on 01/25/2021. Supportive care was provided including bronchodilators, expectorants, incentive spirometry, and PEP therapy. She cannot get her COVID vaccine until April 29, 2021, appreciate ID input. (5) Hemoptysis: Code(s): R04.2 - Hemoptysis Status: Acute Assessment and Plan: She had a moderate amount of hemoptysis on 01/28. She had a CTA on 01/25 with limited segmental evaluation, but no pulmonary embolism was suspected. Lovenox was decreased from 40mg BID to 40mg QD with resolution. She reported blood-tinged sputum today with significant pleuritic pain. D-dimer was 2.04 so chest CTA was ordered and negative for pulmonary embolism. Blood-tinged sputum is likely secondary to cavitary pneumonia due to Staphylococcus pneumonia. Continue supportive care. (6) Aspergillus: Code(s): B44.9 - Aspergillosis, unspecified Status: Acute Assessment and Plan: Sputum culture collected on 01/23/2021 showed growth of aspergillus species (not fumigatus, flavus, or niger groups). She was seen by Infectious Disease and this was not felt to be pathogenic so antifungal was not recommended per ID. Pneumonia suspected to be bacterial as opposed to fungal. Fungal smear from bronchial washing at carinal and BAL LLL demonstrate no fungal elements. Final culture is in progress. Infectious disease following with management deferred to ID (7)
--- NOTE | 2021-02-05 13:29 | PCPTNOTE ---
Attempted PT treatment. Pt refused therapy. States she's too sore from RA and needs a day to rest and let her RA calm down. Will try again tomorrow.
--- NOTE | 2021-02-05 14:51 | WPDINFPN2 ---
Progress Note: A&P Assessment and Plan (1) Abnormal sputum: Code(s): R09.3 - Abnormal sputum Status: Deleted Assessment and Plan: 1. Aspergillus in sputum, infection unlikely. Await bronch culture. 2. Acute covid 19 pneumonia 3. Immunosuppressed/immunocompromised 4. S aureus pneumonia, complicating her viral pneumonia. REC Vanc and Ancef, taper to single agent once susceptibilities available. Will need 14 days IV therapy, more if clinical deterioration. SARS CoV2 vaccine 04/29/21 or soon thereafter, not before. Call if other Qs. Subjective Date/time seen: 02/05/21 14:51 Interval history: dyspnea is less. No fever Exam Narrative: Exam Narrative: afebrile Const: General: no acute distress Resp: Effort & Inspection: normal respiratory effort Auscultation: clear to auscultation bilaterally and diminished lung sounds Cardio: Rate: regular rate Rhythm: regular rhythm Heart sounds: no murmurs GI: Inspection: non-distended GI Palp: Yes Soft to palpation and No Tenderness to palpation present (GI) Skin: General skin exam: normal color and no rashes or lesions noted Objective Data Vital Signs Vital Signs: Vital Signs - 24 hr 02/04/21 19:43 02/04/21 19:57 02/04/21 21:47 Temperature 37.1 C Pulse Rate 60 80 88 Respiratory Rate 16 16 20 Blood Pressure 132/71 Pulse Oximetry 94 96 02/04/21 22:15 02/05/21 01:55 02/05/21 02:10 Temperature Pulse Rate 60 58 L 61 Respiratory Rate 16 16 Blood Pressure Pulse Oximetry 95 02/05/21 05:31 02/05/21 08:00 02/05/21 08:04 Temperature 36.4 C Pulse Rate 82 86 Respiratory Rate 20 16 Blood Pressure 116/55 L Pulse Oximetry 96 95 02/05/21 08:05 02/05/21 08:17 02/05/21 12:50 Temperature Pulse Rate 86 88 85 Respiratory Rate 16 16 Blood Pressure Pulse Oximetry 93 02/05/21 13:00 02/05/21 14:00 Temperature 36.7 C Pulse Rate 88 74 Respiratory Rate 16 18 Blood Pressure 114/58 L Pulse Oximetry 100 Intake/Output Intake/Output: Intake & Output 02/02/21 02/03/21 02/04/21 02/05/21 23:59 23:59 23:59 23:59 Intake Total 1970 1800 3570 990 Output Total 6067 292 2092 600 Balance 120 1600 2270 390 Meds/Results Medications: Active Medications Generic Name Dose Route Start Last Admin Trade Name Freq PRN Reason Stop Dose Admin Acetaminophen 650 mg 01/26/21 14:59 02/05/21 08:40 Acetaminophen 325 Mg Tablet PO 650 mg Q4H PRN Administration Headache Albuterol 2.5 mg 02/05/21 12:00 02/05/21 12:50 Albuterol Sulfate Neb 2.5 Mg/0.5 Ml Inh INHALATION 2.5 mg [id number] ESTRELLITA Administration Budesonide 0.5 mg 02/02/21 20:00 02/05/21 08:01 Budesonide Respule Neb 0.5 Mg/2 Ml Amp INHALATION 0.5 mg Q12HRT ESTRELLITA Administration Cyclosporine 1 drop 01/23/21 09:00 02/05/21 07:51 Cyclosporine 0.4 Ml Ophth Solution EACH EYE 1 drop Q12HR ESTRELLITA Administration Dextrose 12.5 gm 01/22/21 23:24 Dextrose 50% 25 Gm/50 Ml Syringe IV PUSH PRN PRN Hypoglycemia Protocol Enoxaparin Sodium 40 mg 01/29/21 09:00 02/05/21 07:50 Enoxaparin 40 Mg/0.4 Ml Syringe SUB-Q 40 mg DAILY ESTRELLITA Administration Fenofibrate 48 mg 01/23/21 09:00 02/05/21 07:51 Fenofibrate,Micronized 48 Mg Tablet PO 48 mg DAILY ESTRELLITA Administration Fluticasone Propionate 1 spray 01/23/21 09:00 02/05/21 07:46 Fluticasone Propionate 0.05% Na Spr 16 Gm Btl (*Bkc) NASAL 1 spray DAILY ESTRELLITA Administration Folic Acid 3 mg 01/23/21 09:00 02/05/21 07:48 Folic Acid 1 Mg Tablet PO 3 mg DAILY ESTRELLITA Administration Glucagon 1 mg 01/22/21 23:24 Glucagon For Inj 1 Mg Vial IM PRN PRN Hypoglycemia Protocol Glucose 15 gm 01/22/21 23:24 Glucose Oral Gel 15 Gm Of Glucse In 37.5 Gm Tube PO PRN PRN Hypoglycemia Protocol Guaifenesin 1,200 mg 01/23/21 12:00 02/05/21 07:47 Guaifenesin 12 Hr 600 Mg Tabcr PO 1,200 mg Q12HR ESTRELLITA Administration Dextr
[2021-02-05 16:55] LABS: Glucose Point of Care 91 (65-105)
[2021-02-05] MEDS: ceFAZolin 2 GM/D5W 50 ML 2 GM/50 ML BAG IVPB (19:33)
[2021-02-06] VITALS (14 sets, daily range): BP systolic 104–131; BP diastolic 52–58; PULSE 78–93; RESP 16–20; TEMP 36.3–37.1; O2SAT 91–95
[2021-02-06] MEDS: ceFAZolin 2 GM/D5W 50 ML 2 GM/50 ML BAG IVPB ×3 (02:48→12:35)
[2021-02-06 05:55] LABS: Basophils Percent Auto 0.4 % (0.2-1.2); Eosinophils Absolute Auto 0.1 K/mm3 (0-0.3); Eosinophils Percent Auto 1.2 % (0-4.4); Hematocrit 31.2 % (37.0-47.0); Immature Granulocyte Absolute 0.07 K/mm3 (0.00-0.031); Immature Granulocyte Percent A 0.8 % (0-0.5); Lymphocytes Absolute Auto 0.94 K/mm3 (0.9-3.2); Mean Corpuscular HGB Conc 32.1 g/dl (32-36); Mean Corpuscular Hemoglobin 27.9 pg (26-34); Mean Corpuscular Volume 87.2 fl (80-100); Mean Platelet Volume 9.8 fl (7.4-10.4); Monocytes Absolute Auto 0.7 K/mm3 (0.1-0.6); Monocytes Percent Auto 8.4 % (2.6-8.5); Neutrophils Absolute Auto 6.7 K/mm3 (1.3-6.7); Neutrophils Percent Auto 78.2 % (45.5-73.1); Platelet Count Result 210 k/mm3 (150-375); Red Blood Count 3.58 M/mm3 (4.2-5.4); Red Cell Distribution Width 14.6 % (11.5-14.5); White Blood Count 8.6 K/mm3 (4.5-10.0)
[2021-02-06] MEDS: LEVOTHYROXINE SODIUM 88 MCG TABLET PO (06:20)
[2021-02-06 06:38] LABS: Anion Gap 2 mmol/L (8-16); Blood Urea Nitrogen 14 mg/dL (7-17); CRP 15.3 mg/dL (<1.0); Calcium 8.1 mg/dL (8.4-10.2); Carbon Dioxide 29 mmol/L (22-30); Chloride 101 mmol/L (98-107); Estimated CRCL calculation 101 ml/min; Estimated Glomerular Filt Rate > 60; Glucose 105 mg/dL (65-105); Potassium 3.5 mmol/L (3.4-5.0); Sodium 132 mmol/L (137-145)
[2021-02-06] MEDS: IPRATROPIUM BR 0.02% INH SOLN 0.5 MG/2.5 ML VIAL INHALATION ×4 (07:43→20:19)
[2021-02-06] MEDS: ALBUTEROL SULFATE NEB 2.5 MG/0.5 ML INH INHALATION ×4 (07:43→20:19)
[2021-02-06] MEDS: BUDESONIDE RESPULE NEB 0.5 MG/2 ML AMP INHALATION ×2 (07:43→20:19)
[2021-02-06 08:03] LABS: Glucose Point of Care 81 (65-105)
[2021-02-06] MEDS: ACETAMINOPHEN 325 MG TABLET 650 MG PO (08:04)
[2021-02-06] MEDS: CHOLECALCIFEROL 1,000 UNITS TABLET 4000 UNITS PO (08:05)
[2021-02-06] MEDS: LOSARTAN POTASSIUM 50 MG TABLET 100 MG PO (08:05)
[2021-02-06] MEDS: PRAVASTATIN SODIUM 20 MG TABLET PO (08:05)
[2021-02-06] MEDS: guaiFENesin 12 HR 600 MG TABCR 1200 MG PO ×2 (08:05→20:53)
[2021-02-06] MEDS: ENOXAPARIN 40 MG/0.4 ML SYRINGE SUB-Q (08:05)
[2021-02-06] MEDS: LORATADINE 10 MG TABLET PO (08:06)
[2021-02-06] MEDS: cycloSPORINE 0.4 ML OPHTH SOLUTION 1 DROP EACH EYE ×2 (08:06→20:53)
[2021-02-06] MEDS: MONTELUKAST SODIUM 10 MG TABLET PO (08:06)
[2021-02-06] MEDS: PANTOPRAZOLE 40 MG TABLET PO (08:06)
[2021-02-06] MEDS: FOLIC ACID 1 MG TABLET 3 MG PO (08:06)
[2021-02-06] MEDS: metFORMIN HCL 500 MG TABLET PO ×2 (08:06→17:13)
[2021-02-06] MEDS: FLUTICASONE PROPIONATE 0.05% NA SPR 16 GM BTL (*BKC) 1 SPRAY NASAL (08:06)
[2021-02-06] MEDS: FENOFIBRATE,MICRONIZED 48 MG TABLET PO (08:06)
[2021-02-06 12:37] LABS: Glucose Point of Care 100 (65-105)
--- NOTE | 2021-02-06 15:32 | PM.IMPN ---
Progress Note: A&P Assessment and Plan (1) Staphylococcus aureus pneumonia: Code(s): J15.211 - Pneumonia due to Methicillin susceptible Staphylococcus aureus Status: Acute Assessment and Plan: CXR performed on 02/02/21 demonstrated new focal consolidation consistent with cavitation. CT chest was ordered and suggested necrotizing pneumonia. Pulmonology was on board and ID was consulted and recommended bronchoscopy for further evaluation. Bronchoscopy was performed 02/04/21 and demonstrated purulent secretions from the right and left lung. She developed low grade fever with Tmax 100.3F on 02/03 and WBC was elevated to 13,800. Blood cultures were obtained and she was treated with empiric IV vancomycin and imipenem (initiated 02/03/21) per infectious disease recommendations. IV imipenem stopped and IV cefazolin initiated 02/05 per ID recommendation. WBC is improving and she is afebrile. No evidence of vegetation on echo w/ limited views. Blood cultures NGTD. Pulmonology and infectious disease are on board Continue vancomycin and cefazolin per ID recommendations Preliminary blood cultures obtained 02/03/21 demonstrate NGTD Await final cultures from bronchial washing Bronchial washings carinal demonstrating MSSA BAL Aspirate still pending w/ anaerobic showing mixed ghazala and anaerobic showing Staphylococcus aureus w/ susceptibilities pending - await final results prior to adjusting therapy Continue supportive care (2) Necrotizing pneumonia: Code(s): J85.0 - Gangrene and necrosis of lung Status: Acute Assessment and Plan: As above. ID and pulmonology is following as well. (3) Acute respiratory failure with hypoxia: Code(s): J96.01 - Acute respiratory failure with hypoxia Status: Resolved Assessment and Plan: Secondary to COVID-19 pneumonia initially. Now pt has secondary bacterial pneumonia. She is on room air at rest but does require 3 liters per nasal cannula with exertion. Continue supplemental oxygen as needed to maintain oxygen saturation 90% or above, wean as tolerated (4) Pneumonia due to COVID-19 virus: Code(s): U07.1 - COVID-19; J12.82 - Pneumonia due to coronavirus disease 2019 Status: Acute Assessment and Plan: Symptoms started 2-3 days prior to admission. She was exposed to her son who was positive 2 weeks prior. SARS-CoV-2 testing performed 01/22/21 was positive. CXR showed extensive pulmonary infiltrates. She received 10 days of IV Remdesivir which was extended due to her immunocompromised status based on pulmonology recommendations. Shows completed 10 days of IV dexamethasone. She received convalescent plasma on 01/25/2021. Supportive care was provided including bronchodilators, expectorants, incentive spirometry, and PEP therapy. She cannot get her COVID vaccine until April 29, 2021, appreciate ID input. (5) Pericardial effusion: Code(s): I31.3 - Pericardial effusion (noninflammatory) Status: Acute Assessment and Plan: Small pericardial effusion noted on echocardiogram performed 02/06/21. Discussed with cardiology who reviewed her echocardiogram from 01/25/21 and believes there is no significant change. There is no evidence of hemodynamic compromise or tamponade. Likely inflammatory due to rheumatoid arthritis. Infection felt unlikely but will monitor closely. Plan for echocardiogram w/ limited views in 1 week to evaluate for size of effusion and ensure no increase in size per cardiology recommendations (6) Hemoptysis: Code(s): R04.2 - Hemoptysis Status: Acute Assessment and Plan: She had a moderate amount of hemoptysis on 01/28. She had a CTA on 01/25 with limited segmental evaluation, but no pulmonary embolism was suspected. Lovenox was decreased from 40mg BID to 40mg QD with resolution. She noted blood-tinged sputum 02/05. D-dimer was 2.04 so chest CTA was ordered and negative for pulmonary embolism
[2021-02-06 17:25] LABS: Glucose Point of Care 105 (65-105)
[2021-02-06 21:08] LABS: Glucose Point of Care 108 (65-105)
[2021-02-07] VITALS (14 sets, daily range): BP systolic 102–130; BP diastolic 46–69; PULSE 81–92; RESP 18–20; TEMP 36.2–37.1; O2SAT 91–95
[2021-02-07] MEDS: ceFAZolin 2 GM/D5W 50 ML 2 GM/50 ML BAG IVPB ×4 (00:40→19:21)
[2021-02-07 06:11] LABS: Basophils Absolute Auto 0.1 K/mm3 (0.0-0.1); Basophils Percent Auto 0.6 % (0.2-1.2); Eosinophils Absolute Auto 0.1 K/mm3 (0-0.3); Eosinophils Percent Auto 1.5 % (0-4.4); Hematocrit 30.9 % (37.0-47.0); Hemoglobin 9.7 g/dL (12.0-15.0); Immature Granulocyte Absolute 0.05 K/mm3 (0.00-0.031); Immature Granulocyte Percent A 0.6 % (0-0.5); Lymphocytes Absolute Auto 1.14 K/mm3 (0.9-3.2); Lymphocytes Percent Auto 14.1 % (18.3-44.2); Mean Corpuscular HGB Conc 31.4 g/dl (32-36); Mean Corpuscular Volume 86.1 fl (80-100); Mean Platelet Volume 9.9 fl (7.4-10.4); Monocytes Absolute Auto 0.7 K/mm3 (0.1-0.6); Monocytes Percent Auto 8.8 % (2.6-8.5); Neutrophils Percent Auto 74.4 % (45.5-73.1); Platelet Count Result 232 k/mm3 (150-375); Red Blood Count 3.59 M/mm3 (4.2-5.4); Red Cell Distribution Width 14.5 % (11.5-14.5); White Blood Count 8.1 K/mm3 (4.5-10.0)
[2021-02-07] MEDS: LEVOTHYROXINE SODIUM 88 MCG TABLET PO (06:38)
[2021-02-07 06:46] LABS: Anion Gap 2 mmol/L (8-16); Blood Urea Nitrogen 11 mg/dL (7-17); Calcium 8.4 mg/dL (8.4-10.2); Carbon Dioxide 30 mmol/L (22-30); Chloride 104 mmol/L (98-107); Estimated CRCL calculation 90 ml/min; Estimated Glomerular Filt Rate > 60; Glucose 104 mg/dL (65-105); Potassium 3.5 mmol/L (3.4-5.0); Sodium 136 mmol/L (137-145)
[2021-02-07 07:29] LABS: CRP 16.4 mg/dL (<1.0)
[2021-02-07] MEDS: ALBUTEROL SULFATE NEB 2.5 MG/0.5 ML INH INHALATION ×4 (07:37→19:57)
[2021-02-07] MEDS: IPRATROPIUM BR 0.02% INH SOLN 0.5 MG/2.5 ML VIAL INHALATION ×4 (07:37→19:57)
[2021-02-07] MEDS: BUDESONIDE RESPULE NEB 0.5 MG/2 ML AMP INHALATION ×2 (07:37→19:57)
[2021-02-07 07:51] LABS: Glucose Point of Care 89 (65-105)
[2021-02-07] MEDS: FOLIC ACID 1 MG TABLET 3 MG PO (08:53)
[2021-02-07] MEDS: CHOLECALCIFEROL 1,000 UNITS TABLET 4000 UNITS PO (08:53)
[2021-02-07] MEDS: metFORMIN HCL 500 MG TABLET PO ×2 (08:54→17:19)
[2021-02-07] MEDS: LOSARTAN POTASSIUM 50 MG TABLET 100 MG PO (08:54)
[2021-02-07] MEDS: PANTOPRAZOLE 40 MG TABLET PO (08:54)
[2021-02-07] MEDS: LORATADINE 10 MG TABLET PO (08:54)
[2021-02-07] MEDS: guaiFENesin 12 HR 600 MG TABCR 1200 MG PO ×2 (08:54→20:06)
[2021-02-07] MEDS: MONTELUKAST SODIUM 10 MG TABLET PO (08:54)
[2021-02-07] MEDS: FENOFIBRATE,MICRONIZED 48 MG TABLET PO (08:54)
[2021-02-07] MEDS: PRAVASTATIN SODIUM 20 MG TABLET PO (08:55)
[2021-02-07] MEDS: ENOXAPARIN 40 MG/0.4 ML SYRINGE SUB-Q (08:55)
[2021-02-07] MEDS: cycloSPORINE 0.4 ML OPHTH SOLUTION 1 DROP EACH EYE ×2 (08:55→20:06)
[2021-02-07] MEDS: FLUTICASONE PROPIONATE 0.05% NA SPR 16 GM BTL (*BKC) 1 SPRAY NASAL (08:55)
[2021-02-07] MEDS: ACETAMINOPHEN 325 MG TABLET 650 MG PO (09:02)
[2021-02-07] MEDS: traMADol HCL (*CRX) 25 MG TABLET PO ×2 (10:25→22:15)
--- NOTE | 2021-02-07 11:41 | PM.IMPN ---
Progress Note: A&P Assessment and Plan (1) Staphylococcus aureus pneumonia: Code(s): J15.211 - Pneumonia due to Methicillin susceptible Staphylococcus aureus Status: Acute Assessment and Plan: CXR performed on 02/02/21 demonstrated new focal consolidation consistent with cavitation. CT chest was ordered and suggested necrotizing pneumonia. Pulmonology was on board and ID was consulted and recommended bronchoscopy for further evaluation. Bronchoscopy was performed 02/04/21 and demonstrated purulent secretions from the right and left lung. She developed low grade fever with Tmax 100.3F on 02/03 and WBC was elevated to 13,800. Blood cultures were obtained and she was treated with empiric IV vancomycin and imipenem (initiated 02/03/21) per infectious disease recommendations. IV imipenem stopped and IV cefazolin initiated 02/05 per ID recommendation. WBC is improving and she is afebrile. No evidence of vegetation on echo w/ limited views. Blood cultures NGTD. Pulmonology and infectious disease are on board Continue vancomycin (initiated 02/03/21) and cefazolin (initiated 02/05/21) per ID recommendations (previously on imipenem (initiated 02/03/21 which was d/c and cefazolin initiated 02/05/21) Preliminary blood cultures obtained 02/03/21 demonstrate NGTD Await final cultures from bronchial washing to determine antibiotic therapy per ID recommendations. She will need at least 14 days of IV therapy pending course Bronchial washings carinal demonstrating MSSA BAL Aspirate still pending w/ anaerobic showing mixed ghazala and anaerobic showing Staphylococcus aureus w/ susceptibilities pending Continue supportive care Repeat CXR tomorrow (2) Necrotizing pneumonia: Code(s): J85.0 - Gangrene and necrosis of lung Status: Acute Assessment and Plan: As above. ID and pulmonology is following as well. (3) Acute respiratory failure with hypoxia: Code(s): J96.01 - Acute respiratory failure with hypoxia Status: Resolved Assessment and Plan: Secondary to COVID-19 pneumonia initially. Now pt has secondary bacterial pneumonia. She is on room air at rest but does require 3 liters per nasal cannula with exertion. Continue supplemental oxygen as needed to maintain oxygen saturation 90% or above, wean as tolerated (4) Pneumonia due to COVID-19 virus: Code(s): U07.1 - COVID-19; J12.82 - Pneumonia due to coronavirus disease 2019 Status: Acute Assessment and Plan: Symptoms started 2-3 days prior to admission. She was exposed to her son who was positive 2 weeks prior. SARS-CoV-2 testing performed 01/22/21 was positive. CXR showed extensive pulmonary infiltrates. She received 10 days of IV Remdesivir which was extended due to her immunocompromised status based on pulmonology recommendations. Shows completed 10 days of IV dexamethasone. She received convalescent plasma on 01/25/2021. Supportive care was provided including bronchodilators, expectorants, incentive spirometry, and PEP therapy. She cannot get her COVID vaccine until April 29, 2021, appreciate ID input. (5) Pericardial effusion: Code(s): I31.3 - Pericardial effusion (noninflammatory) Status: Acute Assessment and Plan: Small pericardial effusion noted on echocardiogram performed 02/06/21. Discussed with cardiology who reviewed her echocardiogram from 01/25/21 and believes there is no significant change. There is no evidence of hemodynamic compromise or tamponade. Likely inflammatory due to rheumatoid arthritis. Infection felt unlikely but will monitor closely. Plan for echocardiogram w/ limited views in 1 week to evaluate for size of effusion and ensure no increase in size per cardiology recommendations (6) Hemoptysis: Code(s): R04.2 - Hemoptysis Status: Resolved Assessment and Plan: Resolved. She had a moderate amount of hemoptysis on 01/28. She had a CTA on 01/25 with limited segmental evalu
[2021-02-07 12:33] LABS: Glucose Point of Care 105 (65-105)
[2021-02-08] VITALS (16 sets, daily range): BP systolic 127–150; BP diastolic 48–81; PULSE 64–117; RESP 18–20; TEMP 36.4–36.7; O2SAT 87–95
[2021-02-08] MEDS: ceFAZolin 2 GM/D5W 50 ML 2 GM/50 ML BAG IVPB ×4 (01:17→20:04)
[2021-02-08] MEDS: LEVOTHYROXINE SODIUM 88 MCG TABLET PO (06:53)
[2021-02-08 07:02] LABS: Basophils Percent Auto 0.7 % (0.2-1.2); Eosinophils Absolute Auto 0.1 K/mm3 (0-0.3); Eosinophils Percent Auto 2.5 % (0-4.4); Hematocrit 30.2 % (37.0-47.0); Hemoglobin 9.6 g/dL (12.0-15.0); Immature Granulocyte Absolute 0.04 K/mm3 (0.00-0.031); Immature Granulocyte Percent A 0.7 % (0-0.5); Lymphocytes Absolute Auto 1.17 K/mm3 (0.9-3.2); Lymphocytes Percent Auto 21.2 % (18.3-44.2); Mean Corpuscular HGB Conc 31.8 g/dl (32-36); Mean Corpuscular Hemoglobin 27.7 pg (26-34); Mean Platelet Volume 9.5 fl (7.4-10.4); Monocytes Absolute Auto 0.5 K/mm3 (0.1-0.6); Monocytes Percent Auto 8.7 % (2.6-8.5); Neutrophils Absolute Auto 3.7 K/mm3 (1.3-6.7); Neutrophils Percent Auto 66.2 % (45.5-73.1); Platelet Count Result 204 k/mm3 (150-375); Red Blood Count 3.47 M/mm3 (4.2-5.4); Red Cell Distribution Width 14.5 % (11.5-14.5); White Blood Count 5.5 K/mm3 (4.5-10.0)
[2021-02-08 07:16] LABS: Alanine Aminotransferase 9 U/L (4-35); Albumin Level 2.8 g/dL (3.5-5.1); Alkaline Phosphatase 69 U/L (38-126); Anion Gap 3 mmol/L (8-16); Aspartate Amino Transferase 19 U/L (14-36); Bilirubin,Total 0.3 mg/dL (0.2-1.3); Blood Urea Nitrogen 9 mg/dL (7-17); Calcium 8.4 mg/dL (8.4-10.2); Carbon Dioxide 30 mmol/L (22-30); Chloride 105 mmol/L (98-107); Estimated CRCL calculation 90 ml/min; Estimated Glomerular Filt Rate > 60; Glucose 101 mg/dL (65-105); Magnesium 1.9 mg/dL (1.6-2.3); Potassium 3.3 mmol/L (3.4-5.0); Sodium 138 mmol/L (137-145)
[2021-02-08 07:31] LABS: Glucose Point of Care 91 (65-105)
[2021-02-08 07:35] LABS: CRP 11.8 mg/dL (<1.0)
[2021-02-08] MEDS: ALBUTEROL SULFATE NEB 2.5 MG/0.5 ML INH INHALATION ×4 (08:02→20:36)
[2021-02-08] MEDS: BUDESONIDE RESPULE NEB 0.5 MG/2 ML AMP INHALATION ×2 (08:02→20:36)
[2021-02-08] MEDS: IPRATROPIUM BR 0.02% INH SOLN 0.5 MG/2.5 ML VIAL INHALATION ×4 (08:02→20:35)
[2021-02-08] MEDS: CHOLECALCIFEROL 1,000 UNITS TABLET 4000 UNITS PO (08:25)
[2021-02-08] MEDS: metFORMIN HCL 500 MG TABLET PO ×2 (08:26→17:23)
[2021-02-08] MEDS: guaiFENesin 12 HR 600 MG TABCR 1200 MG PO ×2 (08:26→20:53)
[2021-02-08] MEDS: FOLIC ACID 1 MG TABLET 3 MG PO (08:26)
[2021-02-08] MEDS: FENOFIBRATE,MICRONIZED 48 MG TABLET PO (08:26)
[2021-02-08] MEDS: ENOXAPARIN 40 MG/0.4 ML SYRINGE SUB-Q (08:26)
[2021-02-08] MEDS: LOSARTAN POTASSIUM 50 MG TABLET 100 MG PO (08:26)
[2021-02-08] MEDS: cycloSPORINE 0.4 ML OPHTH SOLUTION 1 DROP EACH EYE ×2 (08:27→20:53)
[2021-02-08] MEDS: LORATADINE 10 MG TABLET PO (08:27)
[2021-02-08] MEDS: PRAVASTATIN SODIUM 20 MG TABLET PO (08:27)
[2021-02-08] MEDS: PANTOPRAZOLE 40 MG TABLET PO (08:27)
[2021-02-08] MEDS: MONTELUKAST SODIUM 10 MG TABLET PO (08:27)
[2021-02-08] MEDS: FLUTICASONE PROPIONATE 0.05% NA SPR 16 GM BTL (*BKC) 1 SPRAY NASAL (08:27)
--- NOTE | 2021-02-08 09:32 | PM.IMPN ---
Progress Note: A&P Assessment and Plan (1) Staphylococcus aureus pneumonia: Code(s): J15.211 - Pneumonia due to Methicillin susceptible Staphylococcus aureus Status: Acute Assessment and Plan: CXR performed on 02/02/21 demonstrated new focal consolidation consistent with cavitation. CT chest was ordered and suggested necrotizing pneumonia. Pulmonology was on board and ID was consulted and recommended bronchoscopy for further evaluation. Bronchoscopy was performed 02/04/21 and demonstrated purulent secretions from the right and left lung. She developed low grade fever with Tmax 100.3F on 02/03 and WBC was elevated to 13,800. Blood cultures were obtained and she was treated with empiric IV vancomycin and imipenem (initiated 02/03/21) per infectious disease recommendations. IV imipenem stopped and IV cefazolin initiated 02/05 per ID recommendation. WBC is improving and she is afebrile. No evidence of vegetation on echo w/ limited views. Blood cultures NGTD. 5 days ago, ID and Pulmonology signed off. Now that the cultures have finalized, re-consulted ID and Pulmonary for Final Visit and Discharge Orders. Patient needs to have Follow up visits with these specialist after discharge. Continue vancomycin (initiated 02/03/21) and cefazolin (initiated 02/05/21) per ID recommendations (previously on imipenem (initiated 02/03/21 which was d/c and cefazolin initiated 02/05/21). Need duration of IV therapy and frequency for Discharge instructions per ID. Preliminary blood cultures obtained 02/03/21 demonstrate NGTD. Cultures showed Staph aureus sensitive to Vanc and imipenem, no MRSA on the nasopharynx test, and no fungal growth on the bronchial lavage LLL. Her rapid respiratory viral cultures pending as of today. She will need at least 14 days of IV therapy pending course Bronchial washings carinal demonstrating MSSA BAL Aspirate still pending w/ anaerobic showing mixed ghazala and anaerobic showing Staphylococcus aureus w/ susceptibilities pending Continue supportive care CXR yesterday showed: There is a right-sided PICC line, tip projecting over the cavoatrial junction, expected location. Again there is moderate amount of patchy bilateral acute airspace disease, appearance most consistent with pneumonia. Small to moderate left pleural effusion. No pneumothorax. The cardiomediastinal silhouette is prominent but magnified on this AP technique. Accounting for differences in technique, there is no significant interval change. IMPRESSION:1. PICC line in position. 2. Moderate amount of bilateral pneumonia. 3. Small to moderate left pleural effusion. (2) Necrotizing pneumonia: Code(s): J85.0 - Gangrene and necrosis of lung Status: Acute Assessment and Plan: As above. ID and pulmonology is following as well. (3) Acute respiratory failure with hypoxia: Code(s): J96.01 - Acute respiratory failure with hypoxia Status: Resolved Assessment and Plan: Secondary to COVID-19 pneumonia initially. Now pt has secondary bacterial pneumonia. She is on room air at rest but does require 3 liters per nasal cannula with exertion. Continue supplemental oxygen as needed to maintain oxygen saturation 90% or above, wean as tolerated Ordered another Home O2 study. (4) Pneumonia due to COVID-19 virus: Code(s): U07.1 - COVID-19; J12.82 - Pneumonia due to coronavirus disease 2019 Status: Acute Assessment and Plan: Symptoms started 2-3 days prior to admission. She was exposed to her son who was positive 2 weeks prior. SARS-CoV-2 testing performed 01/22/21 was positive. CXR showed extensive pulmonary infiltrates. She received 10 days of IV Remdesivir which was extended due to her immunocompromised status based on pulmonology recommendations. Shows completed 10 days of IV dexamethasone. She received convalescent plasma on 01/25/2021. Supportive care was provided including bronchodilators, expectorants, incentive spirometry, and
--- NOTE | 2021-02-08 11:55 | PCNWS ---
Weekly nutritional screen. Patient is tolerating current diet-regular with adequate intake-100% of meals. No nutritional needs at this time.
[2021-02-08] MEDS: SACCHAROMYCES BOULARDII 250 MG CAPSULE PO ×2 (12:32→17:23)
[2021-02-08] MEDS: POTASSIUM CHLORIDE 20 MEQ TABLET 40 MEQ PO (12:39)
--- NOTE | 2021-02-08 14:50 | HOMEO2EVAL ---
Home Oxygen Evaluation RC: Home Oxygen (O2) Evaluation Start: 02/08/21 14:08 Freq: ONCE Status: Active Protocol: RPE Activity Type Activity Date Activity User E-Sign Co-Sign Detail Recorded Client Recorded Date Recorded By Document 02/08/21 14:20 [email or web address] [email or web address] 02/08/21 14:50 KRM Document 02/08/21 14:22 [email or web address] [email or web address] 02/08/21 14:50 KRM Document 02/08/21 14:25 KRM [email or web address] 02/08/21 14:50 KRM Document 02/08/21 14:26 KRM [email or web address] 02/08/21 14:50 KRM Document 02/08/21 14:28 KRM [email or web address] 02/08/21 14:50 KRM 02/08/21 02/08/21 02/08/21 14:20 14:22 14:25 Home O2 Evaluation Test Phase Resting Resting Exercise Oxygen Delivery Room Air Oxymizer Oxymizer Oxygen Flow Rate (L/min) 4 4 Pulse Oximetry (90-100 %) 82 L 90 82 L Pulse Rate (60-100 beats/min) 111 H 110 H Activity Tolerance Poor Home Oxygen Evaluation Comments Treatment Charges O2 Evaluation - Inpatient 02/08/21 02/08/21 14:26 14:28 Home O2 Evaluation Test Phase Exercise Exercise Oxygen Delivery Oxymizer Oxymizer Oxygen Flow Rate (L/min) 8 10 Pulse Oximetry (90-100 %) 74 L 75 L Pulse Rate (60-100 beats/min) 115 H 118 H Activity Tolerance Poor Poor Home Oxygen Evaluation Comments Pt. was only able to sit on the side of the bed. Spo2 75% on 10lpm Oxymizer. Testing stopped and notified provider. Treatment Charges
--- NOTE | 2021-02-08 16:26 | HOMEO2EVAL ---
Home Oxygen Evaluation RC: Home Oxygen (O2) Evaluation Start: 02/08/21 14:08 Freq: ONCE Status: Active Protocol: RPE Activity Type Activity Date Activity User E-Sign Co-Sign Detail Recorded Client Recorded Date Recorded By Document 02/08/21 16:04 [email or web address] [email or web address] 02/08/21 16:25 KRM Document 02/08/21 16:05 KRM [email or web address] 02/08/21 16:25 KRM Document 02/08/21 16:05 KRM [email or web address] 02/08/21 16:25 KRM Document 02/08/21 16:07 KRM [email or web address] 02/08/21 16:25 KRM 02/08/21 02/08/21 02/08/21 16:04 16:05 16:05 Home O2 Evaluation Test Phase Exercise Resting Exercise Oxygen Delivery Room Air Room Air Nasal Cannula Oxygen Flow Rate (L/min) 1 Pulse Oximetry (90-100 %) 87 L 92 89 L Pulse Rate (60-100 beats/min) 116 H 94 117 H Activity Tolerance Fair Fair Ambulation Distance (feet) Home Oxygen Evaluation Comments Treatment Charges O2 Evaluation - Inpatient 02/08/21 16:07 Home O2 Evaluation Test Phase Exercise Oxygen Delivery Nasal Cannula Oxygen Flow Rate (L/min) 2 Pulse Oximetry (90-100 %) 93 Pulse Rate (60-100 beats/min) 103 H Activity Tolerance Fair Ambulation Distance (feet) 75 Home Oxygen Evaluation Comments Pt. requires 2lpm oxygen with activity. Treatment Charges
--- NOTE | 2021-02-08 16:26 | PCRTNOTE ---
PT. HAD TO BE REEVALUATED FOR HOME O2 SINCE LAST EVALUATION IS . PT. QUALIFIED FOR 2LPM WITH ACTIVITY. FAXED UPDATED INFO TO [facility] AND SPOKE WITH CATIE. CORONADO IN ROOM.
--- NOTE | 2021-02-08 16:30 | HOMEO2EVAL ---
Home Oxygen Evaluation RC: Home Oxygen (O2) Evaluation Start: 02/08/21 14:08 Freq: ONCE Status: Active Protocol: RPE Activity Type Activity Date Activity User E-Sign Co-Sign Detail Recorded Client Recorded Date Recorded By Document 02/08/21 16:02 KRM [email or web address] 02/08/21 16:25 KRM Document 02/08/21 16:00 KRM [email or web address] 02/08/21 16:25 KRM Document 02/08/21 16:06 KRM [email or web address] 02/08/21 16:25 KRM Document 02/08/21 16:07 KRM [email or web address] 02/08/21 16:25 KRM 02/08/21 02/08/21 02/08/21 16:02 16:00 16:06 Home O2 Evaluation Test Phase Exercise Resting Exercise Oxygen Delivery Room Air Room Air Nasal Cannula Oxygen Flow Rate (L/min) 1 Pulse Oximetry (90-100 %) 87 L 92 89 L Pulse Rate (60-100 beats/min) 116 H 94 117 H Activity Tolerance Fair Fair Ambulation Distance (feet) Home Oxygen Evaluation Comments Treatment Charges O2 Evaluation - Inpatient 02/08/21 16:07 Home O2 Evaluation Test Phase Exercise Oxygen Delivery Nasal Cannula Oxygen Flow Rate (L/min) 2 Pulse Oximetry (90-100 %) 93 Pulse Rate (60-100 beats/min) 103 H Activity Tolerance Fair Ambulation Distance (feet) 75 Home Oxygen Evaluation Comments Pt. requires 2lpm oxygen with activity. Treatment Charges
[2021-02-08 17:09] LABS: Vancomycin Trough 15.2 ug/mL (10.0-20.0)
[2021-02-08] MEDS: traMADol HCL (*CRX) 25 MG TABLET PO (20:53)
[2021-02-09] MEDS: ceFAZolin 2 GM/D5W 50 ML 2 GM/50 ML BAG IVPB ×2 (01:01→06:33)
[2021-02-09 04:37] LABS: Glucose Point of Care 107 (65-105)
[2021-02-09 06:00] VITALS: BP 129/59; PULSE 80; RESP 18; TEMP 36.7; O2SAT 94
[2021-02-09] MEDS: LEVOTHYROXINE SODIUM 88 MCG TABLET PO (06:12)
[2021-02-09 06:40] LABS: Basophils Percent Auto 0.7 % (0.2-1.2); Eosinophils Absolute Auto 0.2 K/mm3 (0-0.3); Eosinophils Percent Auto 3.3 % (0-4.4); Hematocrit 29.7 % (37.0-47.0); Hemoglobin 9.3 g/dL (12.0-15.0); Immature Granulocyte Absolute 0.02 K/mm3 (0.00-0.031); Immature Granulocyte Percent A 0.4 % (0-0.5); Lymphocytes Absolute Auto 1.09 K/mm3 (0.9-3.2); Lymphocytes Percent Auto 23.9 % (18.3-44.2); Mean Corpuscular HGB Conc 31.3 g/dl (32-36); Mean Corpuscular Hemoglobin 27.5 pg (26-34); Mean Corpuscular Volume 87.9 fl (80-100); Mean Platelet Volume 9.6 fl (7.4-10.4); Monocytes Absolute Auto 0.4 K/mm3 (0.1-0.6); Monocytes Percent Auto 8.3 % (2.6-8.5); Neutrophils Absolute Auto 2.9 K/mm3 (1.3-6.7); Neutrophils Percent Auto 63.4 % (45.5-73.1); Platelet Count Result 209 k/mm3 (150-375); Red Blood Count 3.38 M/mm3 (4.2-5.4); Red Cell Distribution Width 14.6 % (11.5-14.5); White Blood Count 4.6 K/mm3 (4.5-10.0)
[2021-02-09 06:45] LABS: Alanine Aminotransferase 7 U/L (4-35); Albumin Level 2.8 g/dL (3.5-5.1); Alkaline Phosphatase 64 U/L (38-126); Anion Gap 2 mmol/L (8-16); Aspartate Amino Transferase 18 U/L (14-36); Bilirubin,Total 0.2 mg/dL (0.2-1.3); Blood Urea Nitrogen 9 mg/dL (7-17); Calcium 8.5 mg/dL (8.4-10.2); Carbon Dioxide 31 mmol/L (22-30); Chloride 104 mmol/L (98-107); Estimated CRCL calculation 90 ml/min; Estimated Glomerular Filt Rate > 60; Glucose 126 mg/dL (65-105); Potassium 3.4 mmol/L (3.4-5.0); Sodium 137 mmol/L (137-145)
[2021-02-09 08:00] VITALS: PULSE 88; RESP 22; O2SAT 91
[2021-02-09] MEDS: FOLIC ACID 1 MG TABLET 3 MG PO (08:00)
[2021-02-09] MEDS: CHOLECALCIFEROL 1,000 UNITS TABLET 4000 UNITS PO (08:00)
[2021-02-09] MEDS: ENOXAPARIN 40 MG/0.4 ML SYRINGE SUB-Q (08:00)
[2021-02-09] MEDS: MONTELUKAST SODIUM 10 MG TABLET PO (08:00)
[2021-02-09] MEDS: metFORMIN HCL 500 MG TABLET PO (08:00)
[2021-02-09] MEDS: cycloSPORINE 0.4 ML OPHTH SOLUTION 1 DROP EACH EYE (08:01)
[2021-02-09] MEDS: LORATADINE 10 MG TABLET PO (08:01)
[2021-02-09] MEDS: PRAVASTATIN SODIUM 20 MG TABLET PO (08:01)
[2021-02-09] MEDS: PANTOPRAZOLE 40 MG TABLET PO (08:01)
[2021-02-09] MEDS: guaiFENesin 12 HR 600 MG TABCR 1200 MG PO (08:01)
[2021-02-09] MEDS: LOSARTAN POTASSIUM 50 MG TABLET 100 MG PO (08:01)
[2021-02-09] MEDS: SACCHAROMYCES BOULARDII 250 MG CAPSULE PO (08:01)
[2021-02-09] MEDS: FENOFIBRATE,MICRONIZED 48 MG TABLET PO (08:01)
[2021-02-09] MEDS: FLUTICASONE PROPIONATE 0.05% NA SPR 16 GM BTL (*BKC) 1 SPRAY NASAL (08:02)
[2021-02-09 08:19] VITALS: PULSE 92; RESP 22
[2021-02-09] MEDS: IPRATROPIUM BR 0.02% INH SOLN 0.5 MG/2.5 ML VIAL INHALATION (08:19)
[2021-02-09] MEDS: ALBUTEROL SULFATE NEB 2.5 MG/0.5 ML INH INHALATION (08:19)
[2021-02-09] MEDS: BUDESONIDE RESPULE NEB 0.5 MG/2 ML AMP INHALATION (08:19)
[2021-02-09 08:20] VITALS: O2SAT 91
[2021-02-09 08:30] VITALS: PULSE 88; RESP 22
--- NOTE | 2021-02-09 10:53 | PM.DS ---
DS: Admitting Diagnosis Admitting Diagnosis Admitting Diagnosis: COVID-19 pneumonia DS: Discharge Diagnosis Discharge Diagnosis (1) Staphylococcus aureus pneumonia: Code(s): J15.211 - Pneumonia due to Methicillin susceptible Staphylococcus aureus Status: Acute Assessment and Plan: CXR performed on 02/02/21 demonstrated new focal consolidation consistent with cavitation. CT chest was ordered and suggested necrotizing pneumonia. Pulmonology was on board and ID was consulted and recommended bronchoscopy for further evaluation. Bronchoscopy was performed 02/04/21 and demonstrated purulent secretions from the right and left lung. She developed low grade fever with Tmax 100.3F on 02/03 and WBC was elevated to 13,800. Blood cultures were obtained and she was treated with empiric IV vancomycin and imipenem (initiated 02/03/21) per infectious disease recommendations. Aspirate from bronchoscopy was cultured and demonstrated growth of staph aureus. IV imipenem stopped and IV cefazolin initiated 02/05 per ID recommendation. Leukocytosis resolved as did fever. No evidence of vegetation on echo w/ limited views. Blood cultures negative. Pathology reviewed which showed acute bronchial pneumonia with pseudomembrane formation. She will continue IV Ancef q8h through 02/14/21 via PICC line. Follow up with pulmonolgy in 2 weeks. (2) Necrotizing pneumonia: Code(s): J85.0 - Gangrene and necrosis of lung Status: Acute Assessment and Plan: As above. She was seen in consultation by Infectious Disease and pulmonology. (3) Acute respiratory failure with hypoxia: Code(s): J96.01 - Acute respiratory failure with hypoxia Status: Resolved Assessment and Plan: Secondary to COVID-19 pneumonia initially then subsequently secondary to bacterial pneumonia. Home oxygen trial performed and demonstrated need for 2 L supplemental oxygen with exertion. She is on room air at rest but does require 3 liters per nasal cannula with exertion. (4) Pneumonia due to COVID-19 virus: Code(s): U07.1 - COVID-19; J12.82 - Pneumonia due to coronavirus disease 2019 Status: Acute Assessment and Plan: Symptoms started 2-3 days prior to admission. She was exposed to her son who was positive 2 weeks prior. SARS-CoV-2 testing performed 01/22/21 was positive. CXR showed extensive pulmonary infiltrates. She received 10 days of IV Remdesivir which was extended due to her immunocompromised status based on pulmonology recommendations. She completed 10 days of IV dexamethasone. She received convalescent plasma on 01/25/2021. Supportive care was provided including bronchodilators, expectorants, incentive spirometry, and PEP therapy. She cannot get her COVID vaccine until April 29, 2021 her IV recommendations. (5) Pericardial effusion: Code(s): I31.3 - Pericardial effusion (noninflammatory) Status: Acute Assessment and Plan: Small pericardial effusion noted on echocardiogram performed 02/06/21. Discussed with cardiology who reviewed her echocardiogram from 01/25/21 and believed there to be no significant change. There was no evidence of hemodynamic compromise or tamponade. Likely inflammatory due to rheumatoid arthritis. Infection felt unlikely. Plan for echocardiogram w/ limited views in 1 week around 02/14-02/16 to evaluate for size of effusion and ensure no increase in size per cardiology recommendations. 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 (6) Hemoptysis: Code(s): R04.2 - Hemoptysis Status: Resolved Assessment and Plan: Resolved. She had a moderate amount of hemoptysis on 01/28. She had a CTA on 01/25 with limited segmental evaluation, but no pulmonary embolism was suspected. Lovenox was decreased from 40mg BID to 40mg QD with resolution. She noted blood-tinged sputum 02/05. D-dimer was 2.04 so chest CTA was ordered and negative for pulmonary
--- NOTE | 2021-02-09 15:50 | PC.NURSE ---
tissue bx, bronchial washing, blood cx- negative. Faxed to Dr. Adams.
== END 2021-02-09 12:15 | disposition home health service (06) | DRG 166 ==
LOC: ANHED 17:30 → ANH3MEDSUR 19:48
PROVIDERS: Emergency Medicine; Internal Medicine; Internal Medicine Critical Care Medicine; Internal Medicine Pulmonary Disease; Nurse Practitioner; Physician Assistant; Admitting Provider Family Medicine; Emergency Provider Emergency Medicine; PCP Internal Medicine; Visit Provider Internal Medicine
PROC: 0BJ08ZZ Inspection of Tracheobronchial Tree, Via Natural or Artificial Opening Endoscopic (ICD-10-PCS; CPT 31622; principal; 2021-02-03 15:00)
DX: U07.1 COVID-19 (principal); J12.82 Pneumonia due to coronavirus disease 2019; J96.01 Acute respiratory failure with hypoxia; J15.211 Pneumonia due to Methicillin susceptible Staphylococcus aureus; J85.0 Gangrene and necrosis of lung; Z68.43 Body mass index [BMI] 50.0-59.9, adult; D80.9 Immunodeficiency with predominantly antibody defects, unspecified; J44.1 Chronic obstructive pulmonary disease with (acute) exacerbation; R04.2 Hemoptysis; B44.9 Aspergillosis, unspecified; I31.3 Pericardial effusion (noninflammatory); G47.33 Obstructive sleep apnea (adult) (pediatric); E66.01 Morbid (severe) obesity due to excess calories; E03.9 Hypothyroidism, unspecified; M06.9 Rheumatoid arthritis, unspecified; M54.9 Dorsalgia, unspecified
CPT/HCPCS: 36415; 36430; 36569; 71045; 71046; 71250; 71275; 76000; 80048; 80053; 80202; 82550; 82565; 82728; 82784; 82948; 83036; 83615; 83735; 83880; 84145; 84439; 84443; 84460; 84480; 84484; 85014; 85018; 85025; 85027; 85380; 85610; 85730; 85999; 86140; 86900; 86901; 87015; 87040; 87070; 87075; 87081; 87102; 87106; 87116; 87147; 87186; 87205; 87206; 88104; 88108; 88305; 88312; 93005; 93306; 93308; 93970; 94618; 94640; 94667; 94668; 94762; 96361; 96365; 96366; 96367; 96372; 96375; 96376; 97110; 97116; 97162; 97165; 97535; 99285; A9270; C1751; C9803; G0378; J0131; J0330; J0690; J0743; J1100; J1459; J1650; J1815; J2405; J2704; J3370; J7040; J7050; J7060; J7120; P9059; Q9967; U0003; U0005

== ENCOUNTER 2021-02-11 11:48 | Outpatient (NON) | payer BC, OTHER, SELFPAY ==
[2021-02-11 12:47] LABS: Basophils Absolute Auto 0.1 K/mm3 (0.0-0.1); Eosinophils Absolute Auto 0.2 K/mm3 (0-0.3); Eosinophils Percent Auto 3.4 % (0-4.4); Hematocrit 31.9 % (37.0-47.0); Hemoglobin 9.7 g/dL (12.0-15.0); Immature Granulocyte Absolute 0.03 K/mm3 (0.00-0.031); Immature Granulocyte Percent A 0.6 % (0-0.5); Lymphocytes Percent Auto 22.3 % (18.3-44.2); Mean Corpuscular HGB Conc 30.4 g/dl (32-36); Mean Corpuscular Hemoglobin 27.2 pg (26-34); Mean Corpuscular Volume 89.4 fl (80-100); Monocytes Absolute Auto 0.4 K/mm3 (0.1-0.6); Monocytes Percent Auto 8.9 % (2.6-8.5); Neutrophils Absolute Auto 3.1 K/mm3 (1.3-6.7); Neutrophils Percent Auto 63.8 % (45.5-73.1); Platelet Count Result 237 k/mm3 (150-375); Red Blood Count 3.57 M/mm3 (4.2-5.4); Red Cell Distribution Width 14.5 % (11.5-14.5); White Blood Count 4.9 K/mm3 (4.5-10.0)
[2021-02-11 12:55] LABS: Anion Gap 2 mmol/L (8-16); Blood Urea Nitrogen 10 mg/dL (7-17); Calcium 8.7 mg/dL (8.4-10.2); Carbon Dioxide 32 mmol/L (22-30); Chloride 106 mmol/L (98-107); Estimated Glomerular Filt Rate > 60; Glucose 110 mg/dL (65-105); Potassium 3.7 mmol/L (3.4-5.0); Sodium 140 mmol/L (137-145)
[2021-02-11 13:01] LABS: Thyroid Stimulating Hormone 0.727 uIU/mL (0.465-4.680)
[2021-02-14 07:48] LABS: Triiodothyronine T3 Free 2.4 pg/mL (2.3-4.2)
== END 2021-02-11 11:49 | disposition home or self-care (01) ==
LOC: HOME HLTH 11:51
PROVIDERS: PCP Internal Medicine; Visit Provider Internal Medicine Endocrinology, Diabetes & Metabolism
DX: E03.9 Hypothyroidism, unspecified (principal)
CPT/HCPCS: 80048; 84439; 84443; 84481; 85025

== ENCOUNTER 2021-03-23 13:48 | Outpatient (CLI) | payer BC, OTHER, SELFPAY ==
--- NOTE | ~2021-03-23 | CT_ITS ---
EXAMINATION: CT diagnostic chest wo con DATE: 03/23/2021 14:35 INDICATION: Pneumonia TECHNIQUE: Computed tomography (CT) of the chest was performed without intravenous contrast. The dose -length product was 760.92 mGy-cm. Automated exposure control and iterative reconstruction technique were employed. COMPARISON: CT dated 02/05/2021 FINDINGS: Cardiomegaly.. No significant pleural or pericardial effusion. No thoracic lymphadenopathy. There is a 5 cm left renal cyst. There are cholecystectomy clips. There are calcified granulomas of the spleen. There has been significant improvement of patchy bilateral airspace consolidation with re sidual confluent airspace disease in the left lower lobe, consistent with improving pneumonia. No pne umothorax. No endobronchial lesions. There are a few scattered calcified granulomas bilaterally. No e ndobronchial lesions. Mild thoracic spondylosis. No acute osseous abnormality. IMPRESSION: 1. Significant improvement of patchy bilateral airspace consolidation, consistent with resolving pneu monia. Residual consolidation most prominent in the left lower lobe. 2: Cardiomegaly. Reviewed, dictated and finalized at location A. IMPRESSION: 1. Significant improvement of patchy bilateral airspace consolidation, consiste nt with resolving pneumonia. Residual consolidation most prominent in the left lower lobe. 2: Cardiomegaly.
== END 2021-03-23 13:49 | disposition home or self-care (01) ==
PROVIDERS: PCP Internal Medicine; Visit Provider Internal Medicine Pulmonary Disease
DX: J15.211 Pneumonia due to Methicillin susceptible Staphylococcus aureus (principal); I51.7 Cardiomegaly
CPT/HCPCS: 71250

== ENCOUNTER 2021-04-09 10:37 | Observation (INO) | payer BC, OTHER, SELFPAY ==
[2021-04-09] VITALS (28 sets, daily range): BP systolic 125–142; BP diastolic 70–79; PULSE 71–97; RESP 12–20; TEMP 36–36.9; O2SAT 95–100
--- NOTE | ~2021-04-09 | XR_ITS ---
XR abdomen obstructive series 04/09/2021 11:57 Indication: Gastroenteritis. Nausea. Epigastric pain. Procedure: AP and upright views of abdomen Comparison: No prior studies for comparison. Findings: There are air-fluid levels on the upright view with mildly dilated small bowel in the left upper abdomen. There is gas throughout the colon. There are cholecystectomy clips. There is atelectas is/scarring in the right midlung. Impression: 1: Mildly dilated small bowel with air-fluid levels which may reflect ileus or partial small bowel ob struction. Reviewed, dictated and finalized at location B. Impression: 1: Mildly dilated small bowel with air-fluid levels which may reflect ileus or partial small bowel obstruction.
--- NOTE | ~2021-04-09 | XR_ITS ---
EXAMINATION: XR abdomen/kub 1V EXAM DATE: 04/11/2021 07:04 INDICATION: Ileus versus possible small bowel obstruction. TECHNIQUE: Frontal projection(s) of the abdomen for interpretation. Comparison is made to prior exami nation from 04/09/2021. FINDINGS: There is expected amount of colonic stool and gas. No small bowel dilation, nonobstructiv e bowel gas pattern. There are no suspicious calcifications identified. There is no organomegaly suspected. There are mild bony degenerative changes. There are cholecystectomy clips. IMPRESSION: Unremarkable abdomen x-ray exam. Reviewed, dictated and finalized at location A.
--- NOTE | 2021-04-09 11:37 | ED.NAVMDI ---
HPI - Nausea/Vomiting/Diarrhea General Chief complaint: Nausea/Vomiting/Diarrhea Stated complaint: diarrhea Time Seen by Provider: 04/09/21 11:21 Source: patient, family and RN notes reviewed Mode of arrival: ambulatory Limitations: no limitations History of Present Illness HPI Narrative: Patient is 56 years old white female brought to the emergency room by her from home complaining of nausea, vomiting and diarrhea, started 4 days ago. Patient denies any fever or chills. Patient also denies any significant abdominal pain. History of diabetes, hypertension, hyperlipidemia, asthma, hypothyroidism, hysterectomy, cholecystectomy, COVID-19 infection December 2020, scheduled for Covid vaccine next month. Patient denies going out of town, or sick contact Related Data Home Medications Medication Instructions Recorded Confirmed cholecalciferol (vitamin D3) 100 4,000 unit PO DAILY 10/21/19 01/22/21 mcg (4,000 unit) capsule cyclosporine 0.05 % eye drops 1 drop EACH EYE Q12H 10/21/19 01/22/21 losartan 50 mg tablet 100 mg PO DAILY 10/21/19 01/22/21 montelukast 10 mg tablet 10 mg PO DAILY 10/21/19 01/22/21 metformin 500 mg PO BID 01/26/20 01/22/21 pravastatin 20 mg PO DAILY 01/26/20 01/22/21 fenofibrate nanocrystallized 48 mg 48 mg PO DAILY 07/28/20 01/22/21 tablet loratadine 10 mg tablet 10 mg PO DAILY 07/28/20 01/22/21 semaglutide 0.5 mg SUB-Q WEEKLY 07/28/20 01/22/21 celecoxib 200 mg PO BID 01/22/21 01/22/21 fluticasone propionate 1 spray INTRANASAL DAILY 01/22/21 01/22/21 folic acid 3 mg PO DAILY 01/22/21 01/22/21 leflunomide 20 mg PO DAILY 01/22/21 01/22/21 levothyroxine [Synthroid] 88 mcg PO DAILY 01/22/21 01/22/21 spironolactone 50 mg PO DAILY 01/22/21 01/22/21 cyclobenzaprine 5 mg PO TID 02/02/21 02/02/21 omeprazole 20 mg capsule,delayed 40 mg PO DAILY cap 03/01/21 release Allergies Allergy/AdvReac Type Severity Reaction Status Date / Time amoxicillin Allergy Severe Hives Verified 03/01/21 13:08 Sulfa (Sulfonamide Allergy Severe Hives Verified 03/01/21 13:08 Antibiotics) amitriptyline AdvReac Mild Unknown Verified 03/01/21 13:08 fentanyl AdvReac Difficulty Verified 03/01/21 13:08 Breathing Review of Systems Review of Systems: Narrative: CONSTITUTIONAL: Denies fever, chills, or sweats. EYES: Denies visual changes, redness, or discharge. ENT: Denies rhinorrhea, congestion, sore throat, or otalgia. CARDIOVASCULAR: Denies chest pain, palpitations, or edema. RESPIRATORY: Denies cough or dyspnea. GASTROINTESTINAL: Denies abdominal pain, nausea, vomiting, or diarrhea. GENITOURINARY: Denies dysuria or hematuria. SKIN: Denies rash or itching. MUSCULOSKELETAL: Denies back pain, joint pain, or myalgia. NEUROLOGIC: Denies headache, numbness, or weakness. PSYCHIATRIC: Denies anxiety or depression. [facility] Past Medical History Medical History Acute respiratory failure with hypoxia LISA (acute kidney injury) Aspergillus Asthma with COPD PFTs 05/10/2020 Hemoptysis Hypothyroid IgG deficiency Morbid obesity Morbid obesity Necrotizing pneumonia YOON (obstructive sleep apnea) Prediabetes Rheumatoid arthritis SVT (supraventricular tachycardia) Vitamin D deficiency Surgical History Surgical History Delivery by section H/O lateral meniscus repair of right knee H/O tubal ligation History of hysterectomy History of tonsillectomy Hx of cholecystectomy Family History Family History Father Lung cancer Thyroid cancer Carcinoma of colon Mother Brain cancer Lung cancer Colitis COPD (chronic obstructive pulmonary disease) Depression Social History Social History Social History: Patient lives at home with her of 26 years. Her 28-year-old son and daughter in law also live with them. She
[2021-04-09 11:56] LABS: Basophils Percent Auto 0.7 % (0.2-1.2); Eosinophils Absolute Auto 0.1 K/mm3 (0-0.3); Eosinophils Percent Auto 0.9 % (0-4.4); Hematocrit 47.2 % (37.0-47.0); Hemoglobin 14.8 g/dL (12.0-15.0); Immature Granulocyte Absolute 0.03 K/mm3 (0.00-0.031); Immature Granulocyte Percent A 0.5 % (0-0.5); Lymphocytes Absolute Auto 1.26 K/mm3 (0.9-3.2); Lymphocytes Percent Auto 21.4 % (18.3-44.2); Mean Corpuscular HGB Conc 31.4 g/dl (32-36); Monocytes Absolute Auto 0.7 K/mm3 (0.1-0.6); Monocytes Percent Auto 11.6 % (2.6-8.5); Neutrophils Absolute Auto 3.8 K/mm3 (1.3-6.7); Neutrophils Percent Auto 64.9 % (45.5-73.1); Platelet Count Result 333 k/mm3 (150-375); Red Blood Count 5.49 M/mm3 (4.2-5.4); Red Cell Distribution Width 15.5 % (11.5-14.5); White Blood Count 5.9 K/mm3 (4.5-10.0)
[2021-04-09 12:09] LABS: Alanine Aminotransferase 31 U/L (4-35); Albumin Level 4.2 g/dL (3.5-5.1); Alkaline Phosphatase 71 U/L (38-126); Anion Gap 10 mmol/L (8-16); Aspartate Amino Transferase 30 U/L (14-36); Bilirubin,Total 0.6 mg/dL (0.2-1.3); Blood Urea Nitrogen 16 mg/dL (7-17); Calcium 9.4 mg/dL (8.4-10.2); Carbon Dioxide 22 mmol/L (22-30); Chloride 105 mmol/L (98-107); Estimated Glomerular Filt Rate > 60; Glucose 100 mg/dL (65-105); Lipase 95 U/L (23-300); Potassium 3.8 mmol/L (3.4-5.0); Sodium 137 mmol/L (137-145)
[2021-04-09] MEDS: SODIUM CHLORIDE 0.9% IV 2,000 ML 999 ML IV CONT (12:20)
[2021-04-09] MEDS: ONDANSETRON INJ 4 MG/2 ML VIAL 8 MG IV PUSH (12:21)
--- NOTE | 2021-04-09 12:43 | ECG_ITS ---
Measurements Intervals Jean Rate: 80 P: 10 IN: 134 QRS: 19 QRSD: 86 T: 23 QT: 374 QTc: 434 Interpretive Statements SINUS RHYTHM BORDERLINE R WAVE PROGRESSION, ANTERIOR LEADS BASELINE ARTIFACT- I, II, III, AVR, AVL, AVF BORDERLINE ECG Electronically Signed On 04-09-2021 13:06:04 CDT by Jake Cassidy D.O.
[2021-04-09 13:57] LABS: Add Urine Microscopic? YES; Appearance Urine Turbid (Clear); Bacteria Urine Trace /hpf; Bilirubin Urine Negative (Negative); Blood Urine 2+ (Negative); Color Urine Amber (Yellow); Glucose Urine UA Negative (Negative); Ketones Urine Trace mg/dL (Negative); Leukocyte Esterase Ur 1+ LEU/UL (Negative); Mucus Urine Few /lpf; Nitrate Urine Positive (Negative); Protein Urine 3+ mg/dL (Negative); RBC Urine >75 /hpf (0-2); Specific Grav Ur 1.025 (1.001-1.035); Squamous Epithelial Cell Urine Many /hpf (Few); Urobilinogen Urine Negative mg/dL (<2.0); WBC Clumps Urine Present /HPF; WBC Urine 51-75 /hpf
--- NOTE | 2021-04-09 17:16 | PC.NURSE ---
This patient, Karen Em, was admitted to [facility] Surg Room 302-01 on 04/09/21 @5395. Patient/family oriented to hospital policies and general routines including ID bracelet, bed and alarms, visiting hours, pain management, procedures, bathroom and other care routines, personal items, smoking policy, room service/diet, and visiting hours. Information on how to activate the Rapid Response Team has been discussed. Patient/Family are encouraged to report perceived risks to care and to ask questions if they do not understand what they are told or what they should do.
--- NOTE | 2021-04-09 19:53 | PM.IMHP ---
H&P: HPI History of Present Illness Date/Time: 04/09/21 19:53 Chief Complaint: nausea vomiting diarrhea Narrative: This is a 56-year-old female with past medical history significant for RA, obstructive sleep apnea on CPAP at nighttime, COPD/asthma, necrotizing pneumonia of the lung, dyslipidemia ,type 2 diabetes mellitus, morbid obesity. Patient presented to the emergency room after having nausea vomiting and diarrhea for the last 3 days or so breaking out in a sweat at time poor appetite. Patient had been in his usual state of health up until Monday. She denies any pain or burning with urination or any discomfort or dysuria. No shortness of breath no cough no sputum production. Preliminary workup was significant for urine analysis with significant wbc's number in. A KUB was significant for likely ileus. Review of Systems Review of Systems: Narrative: Nausea vomiting and diarrhea Constitutional: Constitutional: Reports chills, Reports fatigue, Reports fever(s) and Reports poor appetite Eyes: Eyes: Denies change in vision ENT: Denies nasal congestion, Denies nasal discharge and Denies nasal obstruction Cardiovascular: Cardiovascular: Denies irregular heart rhythm, Denies lightheadedness, Denies radiating jaw, neck or arm pain and Denies palpitations Respiratory: Respiratory: Denies cough and Denies wheezing Gastrointestinal: Gastrointestinal: Reports diarrhea, Reports nausea and Reports vomiting Genitourinary: Genitourinary: Denies dysuria Musculoskeletal: Musculoskeletal: Denies joint swelling, Denies limited range of motion, Denies muscle cramps and Denies muscle weakness Integumentary/Breasts: Skin/Breast: Denies rash Neurologic: Denies focal weakness and Denies Sensory deficit (Neuro) Psychiatric: Psychiatric: Reports no additional psychiatric complaints Endocrine: Endocrine: Reports no additional endocrine complaints Hematologic/Lymphatic: Hematologic/Lymphatic: Reports no additional hematologic/lymphatic complaints Allergic/Immunologic: Allergic/Immunologic: Reports no additional allergic/immunologic complaints [facility] Past Medical History Medical History Acute respiratory failure with hypoxia LISA (acute kidney injury) Aspergillus Asthma with COPD PFTs 05/10/2020 Hemoptysis Hypothyroid IgG deficiency Morbid obesity Morbid obesity Necrotizing pneumonia YOON (obstructive sleep apnea) Prediabetes Rheumatoid arthritis SVT (supraventricular tachycardia) Vitamin D deficiency Surgical History Surgical History Delivery by section H/O lateral meniscus repair of right knee H/O tubal ligation History of hysterectomy History of tonsillectomy Hx of cholecystectomy Family History Family History Father Lung cancer Thyroid cancer Carcinoma of colon Mother Brain cancer Lung cancer Colitis COPD (chronic obstructive pulmonary disease) Depression Social History Social History Social History: Patient lives at home with her of 26 years. Her 28-year-old son and daughter in law also live with them. 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 Primary care provider: Dr. Dirk Solis Code status: Full code Surrogate decision maker: Smoking packs per day: 1 Smoking cigarettes per day: 20.0 Years smoked: 10 Smoking pack-years: 10.00 Smoking status: Former smoker Tobacco type: cigarettes Alcohol intake: never Substance use: never Substance use type: does not use Gender identity (if verbalized by the patient): Female Spiritual care concerns: No Agree to blood products: Yes Meds Home Medications and Allergies Home Medications Medication Instructions Recorded Confirmed Type ch
[2021-04-09] MEDS: SACCHAROMYCES BOULARDII 250 MG CAPSULE PO (20:58)
[2021-04-09] MEDS: CELECOXIB 200 MG CAPSULE PO (20:58)
[2021-04-09] MEDS: CYCLOBENZAPRINE HCL 5 MG TABLET PO (20:58)
[2021-04-09] MEDS: PANTOPRAZOLE 40 MG TABLET PO (20:58)
[2021-04-09] MEDS: guaiFENesin 12 HR 600 MG TABCR 1200 MG PO (20:58)
[2021-04-09] MEDS: cycloSPORINE 0.4 ML OPHTH SOLUTION 1 DROP EACH EYE (20:59)
[2021-04-09] MEDS: ONDANSETRON INJ 4 MG/2 ML VIAL IV PUSH (21:04)
[2021-04-09] MEDS: SODIUM CHLORIDE 0.9% IV 1,000 ML 150 ML IV CONT (21:16)
[2021-04-10] MEDS: SODIUM CHLORIDE 0.9% IV 1,000 ML 150 ML IV CONT ×2 (04:49→12:30)
[2021-04-10] MEDS: LEVOTHYROXINE SODIUM 88 MCG TABLET PO (05:54)
[2021-04-10 06:00] VITALS: BP 124/69; PULSE 70; RESP 16; TEMP 35.9; O2SAT 98
[2021-04-10] MEDS: ENOXAPARIN 40 MG/0.4 ML SYRINGE SUB-Q (09:13)
[2021-04-10] MEDS: CYCLOBENZAPRINE HCL 5 MG TABLET PO ×3 (09:13→16:30)
[2021-04-10] MEDS: CHOLECALCIFEROL 1,000 UNITS TABLET 4000 UNITS PO (09:13)
[2021-04-10] MEDS: FOLIC ACID 1 MG TABLET 3 MG PO (09:13)
[2021-04-10] MEDS: PRAVASTATIN SODIUM 20 MG TABLET PO (09:14)
[2021-04-10] MEDS: PANTOPRAZOLE 40 MG TABLET PO ×2 (09:14→21:22)
[2021-04-10] MEDS: LORATADINE 10 MG TABLET PO (09:14)
[2021-04-10] MEDS: CELECOXIB 200 MG CAPSULE PO ×2 (09:14→16:30)
[2021-04-10] MEDS: FENOFIBRATE,MICRONIZED 48 MG TABLET PO (09:14)
[2021-04-10] MEDS: SPIRONOLACTONE 50 MG TABLET PO (09:14)
[2021-04-10] MEDS: LEFLUNOMIDE 20 MG TABLET PO (09:14)
[2021-04-10] MEDS: HYDROXYCHLOROQUINE SULFATE 200 MG TABLET 400 MG PO (09:15)
[2021-04-10] MEDS: FLUTICASONE PROPIONATE 0.05% NA SPR 16 GM BTL (*BKC) 1 SPRAY NASAL (09:15)
[2021-04-10] MEDS: guaiFENesin 12 HR 600 MG TABCR 1200 MG PO ×2 (09:15→21:22)
[2021-04-10] MEDS: MONTELUKAST SODIUM 10 MG TABLET PO (09:15)
[2021-04-10] MEDS: LOSARTAN POTASSIUM 50 MG TABLET 100 MG PO (09:15)
[2021-04-10] MEDS: SACCHAROMYCES BOULARDII 250 MG CAPSULE PO ×2 (09:15→16:31)
[2021-04-10] MEDS: ONDANSETRON INJ 4 MG/2 ML VIAL IV PUSH (09:27)
[2021-04-10] MEDS: cycloSPORINE 0.4 ML OPHTH SOLUTION 1 DROP EACH EYE ×2 (09:35→21:21)
[2021-04-10 10:07] LABS: Basophils Percent Auto 0.8 % (0.2-1.2); Eosinophils Absolute Auto 0.1 K/mm3 (0-0.3); Eosinophils Percent Auto 1.3 % (0-4.4); Hematocrit 39.8 % (37.0-47.0); Hemoglobin 12.4 g/dL (12.0-15.0); Immature Granulocyte Absolute 0.02 K/mm3 (0.00-0.031); Immature Granulocyte Percent A 0.5 % (0-0.5); Lymphocytes Absolute Auto 1.16 K/mm3 (0.9-3.2); Lymphocytes Percent Auto 30.3 % (18.3-44.2); Mean Corpuscular HGB Conc 31.2 g/dl (32-36); Mean Corpuscular Hemoglobin 27.6 pg (26-34); Mean Corpuscular Volume 88.6 fl (80-100); Mean Platelet Volume 9.6 fl (7.4-10.4); Monocytes Absolute Auto 0.3 K/mm3 (0.1-0.6); Monocytes Percent Auto 8.1 % (2.6-8.5); Neutrophils Absolute Auto 2.3 K/mm3 (1.3-6.7); Platelet Count Result 221 k/mm3 (150-375); Red Blood Count 4.49 M/mm3 (4.2-5.4); Red Cell Distribution Width 15.4 % (11.5-14.5); White Blood Count 3.8 K/mm3 (4.5-10.0)
[2021-04-10 10:17] VITALS: O2SAT 97
[2021-04-10 10:18] LABS: Anion Gap 5 mmol/L (8-16); Blood Urea Nitrogen 12 mg/dL (7-17); Calcium 8.5 mg/dL (8.4-10.2); Carbon Dioxide 23 mmol/L (22-30); Chloride 110 mmol/L (98-107); Estimated CRCL calculation 88 ml/min; Estimated Glomerular Filt Rate > 60; Glucose 102 mg/dL (65-105); Potassium 3.4 mmol/L (3.4-5.0); Sodium 138 mmol/L (137-145)
--- NOTE | 2021-04-10 13:03 | PM.IMPN ---
Progress Note: A&P Assessment and Plan (1) Urinary tract infection: Qualifiers: Hematuria presence: with hematuria Urinary tract infection type: site unspecified Qualified Code(s): N39.0 - Urinary tract infection, site not specified; R31.9 - Hematuria, unspecified Code(s): N39.0 - Urinary tract infection, site not specified Status: Acute Assessment and Plan: Abdnormal urinalysis, pending urine culture results. Started on IV Ceftriaxone. Denies urinary symptoms at this time. (2) Dynamic ileus: Code(s): K56.7 - Ileus, unspecified Status: Acute Assessment and Plan: Patient denies much abdominal symptoms. Had been having diarrhea, but resolved after arrival. Denies abdominal issues currently, might have slight lower abdominal pain. Advance diet as tolerated. Told he to get up and be active. Continue monitoring, if symptoms become worse will repeat imaging. (3) Gastroenteritis: Code(s): K52.9 - Noninfective gastroenteritis and colitis, unspecified Status: Acute Assessment and Plan: Patient having nausea, vomiting and diarrhea. Probably gastroenteritis, viral in origin. Resolved at this time. Continue supportive care (4) COPD (chronic obstructive pulmonary disease): Qualifiers: COPD type: COPD with acute lower respiratory infection Qualified Code(s): J44.0 - Chronic obstructive pulmonary disease with (acute) lower respiratory infection Code(s): J44.9 - Chronic obstructive pulmonary disease, unspecified Status: Acute Assessment and Plan: Continue home meds Stable. Continue to monitor (5) YOON (obstructive sleep apnea): Code(s): G47.33 - Obstructive sleep apnea (adult) (pediatric) Status: Acute Assessment and Plan: CPAP at nighttime settings at 7. (6) SVT (supraventricular tachycardia): Code(s): I47.1 - Supraventricular tachycardia Status: Resolved Assessment and Plan: Stable (7) Rheumatoid arthritis: Code(s): M06.9 - Rheumatoid arthritis, unspecified Status: Chronic Assessment and Plan: Stable. Continue leflunomide and hydroxychloroquine (8) T2DM (type 2 diabetes mellitus): Code(s): E11.9 - Type 2 diabetes mellitus without complications Status: Acute Assessment and Plan: Holding metformin. Insulin sliding scale as needed. Glucose Checks ACHS. Hypoglycemic protocol. Time Spent With Patient Time with patient: 25 - 35 minutes Subjective Date/time seen: 04/10/21 13:03 Interval history: Date of Service 04/10/21: The patient is feeling better. Denies anymore nausea, vomiting, diarrhea since arrival. She is having intermittent lower abd pain, but denies abdominal distention. Still having some flatulence. Denies fever, chills, chest pain, SOB, cough, dysuria, frequent urination, leg swelling, calf pain or any other symptoms at this time. Review of Systems Review of Systems: All systems reviewed & are unremarkable except as noted in HPI and below Exam Narrative: Exam Narrative: General: 56-year-old woman sitting up in bed resting comfortably. In no acute distress. Skin: No jaundice or cyanosis. Good skin turgor. Neck: Full range of motion. Supple. Respiratory: Lungs are clear to auscultation bilaterally. No bony chest wall tenderness. Cardiovascular: The heart has a regular rate and rhythm without murmur. Lower extremities: No lower extremity edema. Distal pulses are easily palpated. No calf tenderness to palpation. Gastrointestinal: Active bowel sounds in all quadrants. The abdomen is soft, nontender and nondistended Psychiatric: Lucid and oriented. Memory intact. Neurologic: No focal deficits. Speech is clear. No facial drooping. Objective Data Vital Signs Vital Signs: Vital Signs - 24 hr 04/09/21 13:15 04/09/21 13:40 04/09/21 13:45 Temperature Pulse Rate 87 80 79 Respiratory Rate 20 18 19
[2021-04-10 13:32] LABS: Magnesium 1.8 mg/dL (1.6-2.3)
[2021-04-10 14:00] VITALS: BP 117/63; PULSE 72; RESP 18; TEMP 36.4; O2SAT 99
[2021-04-10 17:47] LABS: Glucose Point of Care 83 mg/dl (65-105)
--- NOTE | 2021-04-10 21:56 | PHAR ---
HOME MED VERIFIED SPIRIVA RESPIMAT 2 SPRAYS BY MOUTH EVERY MORNING
[2021-04-10 22:00] VITALS: BP 110/61; PULSE 68; RESP 18; TEMP 36.2; O2SAT 99
[2021-04-10 22:14] LABS: Glucose Point of Care 89 mg/dl (65-105)
[2021-04-11] MEDS: SODIUM CHLORIDE 0.9% IV 1,000 ML 150 ML IV CONT ×2 (00:21→06:10)
[2021-04-11 06:00] VITALS: BP 109/61; PULSE 67; RESP 16; TEMP 35.9; O2SAT 100
[2021-04-11] MEDS: LEVOTHYROXINE SODIUM 88 MCG TABLET PO (06:05)
[2021-04-11 06:52] LABS: Hematocrit 39.1 % (37.0-47.0); Hemoglobin 12.2 g/dL (12.0-15.0); Mean Corpuscular HGB Conc 31.2 g/dl (32-36); Mean Corpuscular Hemoglobin 27.4 pg (26-34); Mean Corpuscular Volume 87.7 fl (80-100); Mean Platelet Volume 9.9 fl (7.4-10.4); Platelet Count Result 209 k/mm3 (150-375); Red Blood Count 4.46 M/mm3 (4.2-5.4); Red Cell Distribution Width 15.5 % (11.5-14.5); White Blood Count 3.6 K/mm3 (4.5-10.0)
[2021-04-11 07:29] LABS: Anion Gap 5 mmol/L (8-16); Blood Urea Nitrogen 6 mg/dL (7-17); Calcium 8.8 mg/dL (8.4-10.2); Carbon Dioxide 24 mmol/L (22-30); Chloride 112 mmol/L (98-107); Estimated CRCL calculation 79 ml/min; Estimated Glomerular Filt Rate > 60; Glucose 93 mg/dL (65-105); Potassium 3.5 mmol/L (3.4-5.0); Sodium 141 mmol/L (137-145)
[2021-04-11 07:43] LABS: Hemoglobin A1C 5.5 % (<5.7)
[2021-04-11] MEDS: CELECOXIB 200 MG CAPSULE PO (08:06)
[2021-04-11] MEDS: cycloSPORINE 0.4 ML OPHTH SOLUTION 1 DROP EACH EYE (08:06)
[2021-04-11] MEDS: CHOLECALCIFEROL 1,000 UNITS TABLET 4000 UNITS PO (08:06)
[2021-04-11] MEDS: CYCLOBENZAPRINE HCL 5 MG TABLET PO (08:06)
[2021-04-11] MEDS: FENOFIBRATE,MICRONIZED 48 MG TABLET PO (08:07)
[2021-04-11] MEDS: guaiFENesin 12 HR 600 MG TABCR 1200 MG PO (08:07)
[2021-04-11] MEDS: FOLIC ACID 1 MG TABLET 3 MG PO (08:07)
[2021-04-11] MEDS: FLUTICASONE PROPIONATE 0.05% NA SPR 16 GM BTL (*BKC) 1 SPRAY NASAL (08:07)
[2021-04-11] MEDS: HYDROXYCHLOROQUINE SULFATE 200 MG TABLET 400 MG PO (08:08)
[2021-04-11] MEDS: LEFLUNOMIDE 20 MG TABLET PO (08:09)
[2021-04-11] MEDS: LORATADINE 10 MG TABLET PO (08:09)
[2021-04-11] MEDS: PRAVASTATIN SODIUM 20 MG TABLET PO (08:09)
[2021-04-11] MEDS: LOSARTAN POTASSIUM 50 MG TABLET 100 MG PO (08:09)
[2021-04-11] MEDS: MONTELUKAST SODIUM 10 MG TABLET PO (08:09)
[2021-04-11] MEDS: SPIRONOLACTONE 50 MG TABLET PO (08:09)
[2021-04-11] MEDS: SACCHAROMYCES BOULARDII 250 MG CAPSULE PO (08:09)
[2021-04-11] MEDS: PANTOPRAZOLE 40 MG TABLET PO (08:09)
[2021-04-11] MEDS: ENOXAPARIN 40 MG/0.4 ML SYRINGE SUB-Q (08:13)
[2021-04-11 08:14] LABS: Glucose Point of Care 93 mg/dl (65-105)
--- NOTE | 2021-04-12 08:54 | PM.DS ---
DS: Admitting Diagnosis Admitting Diagnosis Admitting Diagnosis: N/V/D Date of Discharge Summary 04/11/21 DS: Discharge Diagnosis Discharge Diagnosis (1) Urinary tract infection: Qualifiers: Hematuria presence: with hematuria Urinary tract infection type: site unspecified Qualified Code(s): N39.0 - Urinary tract infection, site not specified; R31.9 - Hematuria, unspecified Code(s): N39.0 - Urinary tract infection, site not specified Status: Acute Assessment and Plan: This is a 56-year-old female with past medical history significant for RA, obstructive sleep apnea on CPAP at nighttime, COPD/asthma, necrotizing pneumonia of the lung after COVID, dyslipidemia ,type 2 diabetes mellitus, morbid obesity, who presented to the ER with symptoms of nausea, vomiting, diarrhea for the last 3 days prior to arrival. Vitals showed she was afebrile, non tachycardic, normal blood pressure 131/71, normal respirations oxygenation on room air. Initial labs showed normal white blood cell count, normal differential, high normal H&H suggesting some dehydration, normal CMP, abnormal urinalysis suggesting UTI. Abdominal x-ray from the emergency room showed Mildly dilated small bowel with air-fluid levels which may reflect ileus or partial small bowel obstruction. The patient was admitted into the hospital and started on IV antibiotics for urinary tract infection and IV fluids for dehydration from nausea vomiting and diarrhea. While here her diarrhea completely resolved, we advanced her diet as tolerated. Repeat abdominal x-ray showed no signs of ileus or partial bowel obstruction. Her urine culture came back growing Klebsiella pneumoniae which was sensitive to ceftriaxone. She was discharged on oral antibiotics for a total 7 days treatment. Instructed to follow with her primary care provider for further evaluation after discharge. The patient understands and agrees the plan all questions answered. the patient called 04/12/2021 instead she was having some more diarrhea and nausea. I prescribed her 5 tablets of Zofran 4 mg p.o. to help with her nausea and I told her she needs to follow-up with her primary care provider for further evaluation after discharge. She says she is going to Call her primary care provider butcher's assistant is began off the phone. She states it is usually easy to get an appointment with her primary care provider. (2) Dynamic ileus: Code(s): K56.7 - Ileus, unspecified Status: Acute Assessment and Plan: Patient denies much abdominal symptoms. Had been having diarrhea, but resolved after arrival. Denies abdominal issues currently, might have slight lower abdominal pain. Advance diet as tolerated. Told he to get up and be active. Abd xr repeated and normal (3) Gastroenteritis: Code(s): K52.9 - Noninfective gastroenteritis and colitis, unspecified Status: Acute Assessment and Plan: Patient having nausea, vomiting and diarrhea. Probably gastroenteritis, viral in origin. Resolved at this time. (4) COPD (chronic obstructive pulmonary disease): Qualifiers: COPD type: COPD with acute lower respiratory infection Qualified Code(s): J44.0 - Chronic obstructive pulmonary disease with (acute) lower respiratory infection Code(s): J44.9 - Chronic obstructive pulmonary disease, unspecified Status: Acute Assessment and Plan: Continue home meds Stable. Lungs clear (5) YOON (obstructive sleep apnea): Code(s): G47.33 - Obstructive sleep apnea (adult) (pediatric) Status: Acute Assessment and Plan: CPAP at nighttime settings at 7. (6) SVT (supraventricular tachycardia): Code(s): I47.1 - Supraventricular tachycardia Status: Resolved Assessment and Plan: Stable (7) Rheumatoid arthritis: Code(s): M06.9 - Rheumatoid arthritis, unspecified Stat
== END 2021-04-11 11:49 | disposition home or self-care (01) ==
LOC: ANHED 15:07 → ANH3MEDSUR 16:28
PROVIDERS: Physician Assistant; Admitting Provider Internal Medicine; Emergency Provider Emergency Medicine; PCP Internal Medicine; Visit Provider Internal Medicine
DX: N39.0 Urinary tract infection, site not specified (principal); B96.1 Klebsiella pneumoniae [K. pneumoniae] as the cause of diseases classified elsewhere; K56.7 Ileus, unspecified; K52.9 Noninfective gastroenteritis and colitis, unspecified; R11.2 Nausea with vomiting, unspecified; I10 Essential (primary) hypertension; E11.9 Type 2 diabetes mellitus without complications; E78.5 Hyperlipidemia, unspecified; J44.9 Chronic obstructive pulmonary disease, unspecified; E03.9 Hypothyroidism, unspecified; Z86.16 Personal history of COVID-19; G47.33 Obstructive sleep apnea (adult) (pediatric); M06.9 Rheumatoid arthritis, unspecified; E55.9 Vitamin D deficiency, unspecified; I47.1 Supraventricular tachycardia; E66.01 Morbid (severe) obesity due to excess calories; Z68.43 Body mass index [BMI] 50.0-59.9, adult; Z87.891 Personal history of nicotine dependence; Z79.84 Long term (current) use of oral hypoglycemic drugs; Z79.51 Long term (current) use of inhaled steroids
CPT/HCPCS: 36415; 51701; 74018; 74019; 80048; 80053; 81001; 82948; 83036; 83690; 83735; 85025; 85027; 87077; 87086; 87088; 87186; 93005; 96361; 96365; 96372; 96375; 96376; 99285; A9270; G0378; J0131; J0696; J1650; J2405; J7030

== ENCOUNTER 2021-07-01 00:47 | Day surgery (SDC) | payer BC, OTHER, SELFPAY ==
[2021-06-17 14:08] VITALS: BMI 52.7
--- NOTE | 2021-06-30 14:57 | PM.HPGS ---
History of Present Illness History of Present Illness Consent: Risks, benefits, and alternatives have been discussed and questions answered. Patient agrees to proceed with procedure. Chief complaint: GERD Narrative: Karen Em is a 56 year old female with reflux symptoms. She began taking omeprazole year ago primarily to protect her stomach from effects of many medications that she takes for rheumatoid arthritis. Review of Systems Review of Systems: All systems reviewed & are unremarkable except as noted in HPI and below PMFSH Past Medical History Medical History Acute respiratory failure with hypoxia LISA (acute kidney injury) Aspergillus Asthma with COPD PFTs 05/10/2020 Hemoptysis Hypothyroid IgG deficiency Morbid obesity Morbid obesity Necrotizing pneumonia YOON (obstructive sleep apnea) Prediabetes Rheumatoid arthritis SVT (supraventricular tachycardia) Vitamin D deficiency Surgical History Surgical History Delivery by section H/O lateral meniscus repair of right knee H/O tubal ligation History of hysterectomy History of tonsillectomy Hx of cholecystectomy Family History Family History Father Lung cancer Thyroid cancer Carcinoma of colon Mother Brain cancer Lung cancer Colitis COPD (chronic obstructive pulmonary disease) Depression Social History Social History Social History: Patient lives at home with her of 26 years. Her 28-year-old son and daughter in law also live with them. 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 Primary care provider: Dr. Dirk Solis Code status: Full code Surrogate decision maker: Smoking packs per day: 1 Smoking cigarettes per day: 20.0 Years smoked: 10 Smoking pack-years: 10.00 Smoking status: Former smoker Tobacco type: cigarettes Alcohol intake: never Substance use: never Substance use type: does not use Living arrangements: with family Gender identity (if verbalized by the patient): Female Spiritual care concerns: No Agree to blood products: Yes Meds Home Medications and Allergies Home Medications Medication Instructions Recorded Confirmed Type cholecalciferol (vitamin D3) 100 4,000 unit PO DAILY 10/21/19 06/17/21 History mcg (4,000 unit) capsule cyclosporine 0.05 % eye drops 1 drop EACH EYE Q12H 10/21/19 06/17/21 History losartan 50 mg tablet 100 mg PO DAILY 10/21/19 06/17/21 History montelukast 10 mg tablet 10 mg PO DAILY 10/21/19 06/17/21 History metformin 500 mg PO BID 01/26/20 06/17/21 History pravastatin 20 mg PO DAILY 01/26/20 06/17/21 History fenofibrate nanocrystallized 48 mg 48 mg PO DAILY 07/28/20 06/17/21 History tablet loratadine 10 mg tablet 10 mg PO DAILY 07/28/20 06/17/21 History semaglutide 0.5 mg SUB-Q WEEKLY 07/28/20 06/17/21 History tiotropium bromide 2.5 2 puff INHALATION QAM #4 g 09/30/20 06/17/21 Rx mcg/actuation mist for inhalation hydroxychloroquine 200 mg tablet 400 mg PO DAILY #60 tablet 12/01/20 06/17/21 Rx budesonide-formoterol HFA 160 2 puff INHALATION Q12H #10.2 gm 01/07/21 06/17/21 Rx mcg-4.5 mcg/actuation aerosol inhaler celecoxib 200 mg PO BID 01/22/21 06/17/21 History fluticasone propionate 1 spray INTRANASAL DAILY 01/22/21 06/17/21 History folic acid 3 mg PO DAILY 01/22/21 06/17/21 History leflunomide 20 mg PO DAILY 01/22/21 06/17/21 History levothyroxine [Synthroid] 88 mcg PO DAILY 01/22/21 06/17/21 History spironolactone 50 mg PO DAILY 01/22/21 06/17/21 History Saccharomyces boulardii [Florastor] 250 mg PO BID #60 cap 02/09/21 06/17/21 Rx omeprazole 20 mg capsule,delayed 40 mg PO DAILY cap 03/01/21 06/17/21 History release albuterol sulfate 2.5 mg INHALATION QID PRN #36
[2021-07-01] MEDS: LACTATED RINGERS 1,000 ML 150 ML IV CONT (07:44)
[2021-07-01 07:48] VITALS: BP 166/81; PULSE 84; RESP 22; TEMP 36.1; O2SAT 97
[2021-07-01 07:48] LABS: Glucose Point of Care 102 mg/dl (65-105)
--- NOTE | 2021-07-01 08:12 | WPDANESEPPF ---
Anes - Initial Pre Proc Eval Procedure: Operation Date: 07/01/21 08:30 Proposed Procedures p Esophagogastroduodenoscopy - Galo Hernandez MD Date/Time: 07/01/21 08:12 Surgeon: Galo Hernandez MD Pre Op Diagnosis: GERD Patient Data Age: 56 Gender: F Height: 1.6 m Weight: 143.3 kg Last Vital Signs Temp 97.0 F L 07/01/21 07:48 Pulse 84 07/01/21 07:48 Resp 22 H 07/01/21 07:48 BP 166/81 H 07/01/21 07:48 Pulse Ox 97 07/01/21 07:48 Allergies Allergy/AdvReac Type Severity Reaction Status Date / Time amoxicillin Allergy Severe Hives Verified 07/01/21 07:30 fentanyl Allergy Severe Difficulty Verified 07/01/21 07:30 Breathing peach Allergy Severe Itching Verified 07/01/21 07:30 Sulfa (Sulfonamide Allergy Severe Hives Verified 07/01/21 07:30 Antibiotics) amitriptyline AdvReac Mild Unknown Verified 07/01/21 07:30 Home Medications Medication Instructions Recorded Confirmed Type cholecalciferol (vitamin D3) 100 4,000 unit PO DAILY 10/21/19 06/17/21 History mcg (4,000 unit) capsule cyclosporine 0.05 % eye drops 1 drop EACH EYE Q12H 10/21/19 06/17/21 History losartan 50 mg tablet 100 mg PO DAILY 10/21/19 06/17/21 History montelukast 10 mg tablet 10 mg PO DAILY 10/21/19 06/17/21 History metformin 500 mg PO BID 01/26/20 06/17/21 History pravastatin 20 mg PO DAILY 01/26/20 06/17/21 History fenofibrate nanocrystallized 48 mg 48 mg PO DAILY 07/28/20 06/17/21 History tablet loratadine 10 mg tablet 10 mg PO DAILY 07/28/20 06/17/21 History semaglutide 0.5 mg SUB-Q WEEKLY 07/28/20 06/17/21 History tiotropium bromide 2.5 2 puff INHALATION QAM #4 g 09/30/20 06/17/21 Rx mcg/actuation mist for inhalation hydroxychloroquine 200 mg tablet 400 mg PO DAILY #60 tablet 12/01/20 06/17/21 Rx budesonide-formoterol HFA 160 2 puff INHALATION Q12H #10.2 gm 01/07/21 06/17/21 Rx mcg-4.5 mcg/actuation aerosol inhaler celecoxib 200 mg PO BID 01/22/21 06/17/21 History fluticasone propionate 1 spray INTRANASAL DAILY 01/22/21 06/17/21 History folic acid 3 mg PO DAILY 01/22/21 06/17/21 History leflunomide 20 mg PO DAILY 01/22/21 06/17/21 History levothyroxine [Synthroid] 88 mcg PO DAILY 01/22/21 06/17/21 History spironolactone 50 mg PO DAILY 01/22/21 06/17/21 History Saccharomyces boulardii [Florastor] 250 mg PO BID #60 cap 02/09/21 06/17/21 Rx omeprazole 20 mg capsule,delayed 40 mg PO DAILY cap 03/01/21 06/17/21 History release albuterol sulfate 2.5 mg INHALATION QID PRN #360 ml 03/05/21 06/17/21 Rx albuterol sulfate 90 mcg/actuation 2 inh INHALATION QID PRN #8.5 g 03/05/21 06/17/21 Rx aerosol inhaler acetaminophen 500 mg tablet 1,000 mg PO Q6H tablet 04/21/21 06/17/21 History buspirone 5 mg tablet 5 mg PO BID tablet 04/21/21 06/17/21 History ondansetron HCl 4 mg tablet 4 mg PO BID PRN tablet 04/21/21 06/17/21 History prednisone 10 mg tablet 2.5 mg PO TID tablet 04/21/21 06/17/21 History diazepam 2 mg PO DAILY PRN 06/17/21 06/17/21 History oxybutynin chloride 10 mg PO DAILY 06/17/21 06/17/21 History Laboratory Tests 07/01/21 07:45 POC Capillary Glucose 102 mg/dl mg/dl (65-105) Patient hx anesthesia problems: none Family hx anesthesia problems: none PMFSH Past Medical History Medical History Acute respiratory failure with hypoxia LISA (acute kidney injury) Aspergillus Asthma with COPD PFTs 05/10/2020 Hemoptysis Hypothyroid IgG deficiency Morbid obesity Morbid obesity Necrotizing pneumonia YOON (obstructive sleep apnea) Prediabetes Rheumatoid arthritis SVT (supraventricular tachycardia) Vitamin D deficiency Surgical History Surgical History Delivery by section H/O lateral meniscus repair of right knee H/O tubal ligation History of hysterectomy History of tonsillectomy Hx of cholecystectomy Family History Family History (Reviewed 04/21/21 @ 14:48 by Kirti
[2021-07-01 08:54] VITALS: BP 132/73; PULSE 71; RESP 18; O2SAT 100
[2021-07-01 09:04] VITALS: BP 132/74; PULSE 71; RESP 16; O2SAT 100
[2021-07-01 09:14] VITALS: BP 136/75; PULSE 77; RESP 17; O2SAT 97
== END 2021-07-01 09:34 | disposition home or self-care (01) ==
PROVIDERS: PCP Internal Medicine; Visit Provider Internal Medicine Gastroenterology
PROC: 0DJ08ZZ Inspection of Upper Intestinal Tract, Via Natural or Artificial Opening Endoscopic (ICD-10-PCS; CPT 43235; principal; 2021-07-01 08:30)
DX: K21.9 Gastro-esophageal reflux disease without esophagitis (principal); K29.60 Other gastritis without bleeding; I47.1 Supraventricular tachycardia; M06.9 Rheumatoid arthritis, unspecified; D80.3 Selective deficiency of immunoglobulin G [IgG] subclasses; E55.9 Vitamin D deficiency, unspecified; E66.01 Morbid (severe) obesity due to excess calories; G47.33 Obstructive sleep apnea (adult) (pediatric); R73.03 Prediabetes; Z90.49 Acquired absence of other specified parts of digestive tract; Z90.710 Acquired absence of both cervix and uterus; Z80.0 Family history of malignant neoplasm of digestive organs; Z87.891 Personal history of nicotine dependence
CPT/HCPCS: 43239; 82948; 88305; J2704; J7120

== ENCOUNTER 2021-10-18 20:06 | Inpatient (IN) | payer BC, OTHER, SELFPAY ==
--- NOTE | ~2021-10-18 | US_ITS ---
EXAMINATION:US venous doppler LE BI INDICATION:Elevated d-dimer TECHNIQUE: Multiple grayscale, color flow and Doppler images of the right and left lower extremity de ep venous systems were obtained and reviewed. COMPARISON:01/23/2021 FINDINGS: The common femoral, superficial femoral and popliteal veins demonstrate normal respiratory variation, augmentation and compressibility. Color flow is also seen within the posterior tibial, pe roneal, greater saphenous and profunda veins. IMPRESSION: 1: No lower extremity deep venous thrombosis. Reviewed, dictated and finalized at location A. NT DEVELOPMENT MANAGER
--- NOTE | ~2021-10-18 | CT_ITS ---
EXAMINATION: CTA chest PE protocol DATE: 10/19/2021 02:34 INDICATION: Shortness of breath. TECHNIQUE: Computed tomography angiography (CTA) of the chest was performed with 100 mL Omnipaque-350 intravenous contrast timed to evaluate the pulmonary arteries. Coronal maximum intensity projection 3D-reconstructions were created by the technologist. Automated exposure control and iterative reconst ruction technique were employed. The dose-length product was 1018.65 mGy-cm. COMPARISON: Chest CT 03/23/2021 FINDINGS: There is mild atelectasis bilaterally. There are patchy airspace and groundglass opacities in right middle lobe and right lower lobe, consistent with pneumonia. Calcified pulmonary nodules and calcified hilar lymph nodes are consistent with old granulomatous disease. No pleural effusion. The heart size is normal. There are coronary artery calcifications. No pericardial effusion. There is no pulmonary embolus. Calcifications in the spleen are consistent with old granulomatous disease. There are changes of cholecystectomy. Partially visualized is a 5.3 cm cyst in left kidney. There is modera te thoracic spondylosis. IMPRESSION: 1. No pulmonary embolus. Sensitivity is moderately decreased by motion artifact. 2. Pneumonia involving right middle lobe and right lower lobe. Reviewed, dictated and finalized at location A. HER BALLET IMPRESSION: 1. No pulmonary embolus. Sensitivity is moderately decreased by motion artifact . 2. Pneumonia involving right middle lobe and right lower lobe.
--- NOTE | ~2021-10-18 | XR_ITS ---
EXAMINATION: XR chest 1V portable EXAM DATE: 10/25/2021 07:57 INDICATION: Pneumonia. TECHNIQUE: Portable AP frontal chest x-ray was obtained. Comparison is made to prior examination from 10/23/2021. FINDINGS: There is a right-sided PICC line with tip projecting over the cavoatrial junction. Moderat e amount of right-sided airspace disease, probably pneumonia. Appearance is stable or with mild impro vement. No pneumothorax. Small right pleural effusion. Cardiomediastinal silhouette is normal. There are no osseous abnormalities identified. IMPRESSION: Moderate amount of right-sided pneumonia, stable or with mild improvement. Reviewed, dictated and finalized at location A. DEVELOPMENT PROJECT MANAGER IMPRESSION: Moderate amount of right-sided pneumonia, stable or with mild impro vement.
--- NOTE | ~2021-10-18 | XR_ITS ---
EXAMINATION: XR chest 1V portable DATE: 10/21/2021 04:22 INDICATION: Shortness of breath. Wheezing. TECHNIQUE: A single frontal view of the chest was obtained. COMPARISON: Chest single view 10/19/2021, chest CT 10/19/2021 FINDINGS: There are patchy airspace opacities in right mid and lower lung zones and left lower lung z one. No pleural effusion or pneumothorax. The heart size is normal. IMPRESSION: 1. Worsened airspace opacities in right mid and lower lung zones and left lower lung zone, consistent with pneumonia. Reviewed, dictated and finalized at location A. TECHNICIAN
--- NOTE | ~2021-10-18 | XR_ITS ---
EXAMINATION: XR chest 1V portable DATE: 10/19/2021 00:25 INDICATION: Shortness of breath. Nausea. TECHNIQUE: A single frontal view of the chest was obtained. COMPARISON: Chest single view 02/07/2021, chest CT 10/19/2021 FINDINGS: There are mild airspace opacities in right mid and lower lung zones and left lower lung zon e. No pleural effusion or pneumothorax. The heart size is normal. IMPRESSION: 1. Mild airspace opacities in right mid and lower lung zones and left lower lung zone, consistent wit h pneumonia. Reviewed, dictated and finalized at location A. SEWER MACHINE IMPRESSION: 1. Mild airspace opacities in right mid and lower lung zones and left lower lukas g zone, consistent with pneumonia.
--- NOTE | ~2021-10-18 | XR_ITS ---
EXAMINATION: XR chest 2V DATE: 10/26/2021 09:04 INDICATION: Right-sided chest pain. Pleural effusion. TECHNIQUE: PA and lateral views of the chest were obtained. COMPARISON: None FINDINGS: Persistent opacities at the bilateral lower lung zones. Blunting at the right costophrenic angle cons istent with small right pleural effusion. No pneumothorax. The cardiomediastinal silhouette is normal . Right upper extremity peripherally inserted central venous catheter (PICC) tip at the caudal super ior vena cava. IMPRESSION: 1. Opacities in the bilateral lower lung zones which could represent atelectasis and/or pneumonia. 2. Small right pleural effusion. Reviewed, dictated and finalized at location A. ITION SERVICES MANAGER IMPRESSION: 1. Opacities in the bilateral lower lung zones which could represent atelectasi s and/or pneumonia. 2. Small right pleural effusion.
--- NOTE | ~2021-10-18 | XR_ITS ---
EXAMINATION: XR chest PICC line DATE: 10/21/2021 19:29 INDICATION: PICC line placement TECHNIQUE: frontal view of the chest was obtained. COMPARISON: Chest radiograph dated 10/21/2021 at 4:18 AM FINDINGS: Right upper extremity peripherally inserted central venous catheter (PICC) tip at the caudal superio r vena cava. Patchy opacities in the right lower lung zone consistent with right middle and lower lob ar pneumonia as seen on intervening CT. No pulmonary edema, pleural effusion or pneumothorax. The car diomediastinal silhouette is normal. IMPRESSION: 1. Right PICC line tip in the caudal superior vena cava. 2. Persistent opacities in the right middle and lower lobes consistent with pneumonia. Reviewed, dictated and finalized at location . ONAL CARE ATTENDANT IMPRESSION: 1. Right PICC line tip in the caudal superior vena cava. 2. Persistent opacities in the right middle and lower lobes consistent with pne umonia.
--- NOTE | ~2021-10-18 | CT_ITS ---
EXAMINATION: CTA chest PE protocol DATE: 10/21/2021 10:20 INDICATION: Shortness of breath. TECHNIQUE: Computed tomography angiography (CTA) of the chest was performed with 200 mL Omnipaque-350 intravenous contrast timed to evaluate the pulmonary arteries. Coronal maximum intensity projection 3D-reconstructions were created by the technologist. Automated exposure control and iterative reconst ruction technique were employed. The dose-length product was 1770.00 mGy-cm. COMPARISON: Chest CT 10/19/2021 FINDINGS: There is mild peripheral scarring in the upper lobes. There are patchy airspace opacities i n right middle lobe and right lower lobe with air bronchograms. There is mild atelectasis in left low er lobe. Calcified bilateral lung nodules and calcified hilar lymph nodes are consistent with old gra nulomatous disease. There is a small right pleural effusion. The heart size is normal. No pericardial effusion. There is no pulmonary embolus. There are changes of cholecystectomy. There is a 1.7 cm cys t in left kidney. Calcifications in the spleen are consistent with old granulomatous disease. There i s moderate thoracic spondylosis. IMPRESSION: 1. No pulmonary embolus. 2. Pneumonia involving the right middle lobe and right lower lobe, worsened from 10/19/2021. 3. Small right pleural effusion, new from 10/19/2021. Reviewed, dictated and finalized at location A. PER MAKER IMPRESSION: 1. No pulmonary embolus. 2. Pneumonia involving the right middle lobe and right lower lobe, worsened fro m 10/19/2021. 3. Small right pleural effusion, new from 10/19/2021.
--- NOTE | ~2021-10-18 | XR_ITS ---
XR chest 1V portable DATE: 10/23/2021 06:35 INDICATION: Pneumonia TECHNIQUE: Portable upright AP chest on 10/23/2021 at 0625 hours COMPARISON: 10/21/2021 portable AP chest FINDINGS: Right upper extremity PIC catheter tip is situated near the superior cavoatrial junction. Heart size appears normal. There is pulmonary vascular congestion and redistribution. There are patch y bilateral pulmonary infiltrates, more prominent on the right, particularly in the right mid and low er lung zones. Differential diagnosis includes pneumonia and pulmonary edema. IMPRESSION: Pulmonary vascular congestion and increased bilateral right greater than left pulmonary i nfiltrates; diffusion diagnosis includes pneumonia and/or pulmonary edema Reviewed, dictated and finalized at location A. RYCOOK'S ASSISTANT IMPRESSION: Pulmonary vascular congestion and increased bilateral right greater than left pulmonary infiltrates; diffusion diagnosis includes pneumonia and/or pulmonary edema
--- NOTE | ~2021-10-18 | XR_ITS ---
EXAMINATION: XR chest 1V portable DATE: 10/30/2021 07:08 INDICATION: Pneumonia. TECHNIQUE: A single frontal view of the chest was obtained. COMPARISON: Chest 2 views 10/26/2021, chest CT 10/21/2021 FINDINGS: There are airspace opacities in right mid and lower lung zones and left lower lung zone. Th ere is a small right pleural effusion. No pneumothorax. The heart size is normal. A right upper extre mity peripherally inserted central venous catheter (PICC) is seen with tip in the superior vena cava. IMPRESSION: 1. Stable airspace opacities in right mid and lower lung zones and left lower lung zone, consistent w ith pneumonia. 2. Stable small right pleural effusion. Reviewed, dictated and finalized at location A. PING MACHINE OPERATOR IMPRESSION: 1. Stable airspace opacities in right mid and lower lung zones and left lower l norm zone, consistent with pneumonia. 2. Stable small right pleural effusion.
[2021-10-18 20:08] VITALS: BP 150/57; PULSE 102; RESP 22; TEMP 38.8; O2SAT 94
--- NOTE | 2021-10-18 20:09 | ECG_ITS ---
Measurements Intervals [place] Rate: 101 P: 41 ID: 152 QRS: 43 QRSD: 79 T: 30 QT: 318 QTc: 412 Interpretive Statements SINUS TACHYCARDIA LOW QRS VOLTAGE IN PRECORDIAL LEADS POOR R WAVE PROGRESSION, ANTERIOR LEADS BORDERLINE ECG Electronically Signed On 10-19-2021 5:39:13 CLIENT INTEGRATION MANAGER by Jake Cassidy D.O.
[2021-10-19] VITALS (12 sets, daily range): BP systolic 121–137; BP diastolic 55–68; PULSE 74–101; RESP 16–25; TEMP 36.3–38.4; O2SAT 91–99
--- NOTE | 2021-10-19 00:19 | ED.SOB ---
HPI - SOB/Dyspnea General Chief Complaint: Shortness of Breath/Dyspnea Stated Complaint: SOB Time Seen by Provider: 10/19/21 00:04 Source: patient Mode of arrival: ambulatory Limitations: no limitations History of Present Illness HPI Narrative: Patient is a 56-year-old female complaining of shortness of breath, cough, productive yellowish-greenish sputum, and fever that started 2 days ago. Patient denies any chest pain, abdominal pain, nausea, vomiting, diarrhea or urinary symptoms. Patient states that she is fully vaccinated from Covid. Related Data Home Medications Medication Instructions Recorded Confirmed cholecalciferol (vitamin D3) 100 4,000 unit PO DAILY 10/21/19 08/31/21 mcg (4,000 unit) capsule cyclosporine 0.05 % eye drops 1 drop EACH EYE Q12H 10/21/19 08/31/21 losartan 50 mg tablet 100 mg PO DAILY 10/21/19 08/31/21 montelukast 10 mg tablet 10 mg PO DAILY 10/21/19 08/31/21 metformin 500 mg PO BID 01/26/20 08/31/21 pravastatin 20 mg PO DAILY 01/26/20 08/31/21 fenofibrate nanocrystallized 48 mg 48 mg PO DAILY 07/28/20 08/31/21 tablet loratadine 10 mg tablet 10 mg PO DAILY 07/28/20 08/31/21 semaglutide 0.5 mg SUB-Q WEEKLY 07/28/20 08/31/21 celecoxib 200 mg PO BID 01/22/21 08/31/21 folic acid 3 mg PO DAILY 01/22/21 08/31/21 leflunomide 20 mg PO DAILY 01/22/21 08/31/21 levothyroxine [Synthroid] 88 mcg PO DAILY 01/22/21 08/31/21 spironolactone 50 mg PO DAILY 01/22/21 08/31/21 omeprazole 20 mg capsule,delayed 40 mg PO DAILY cap 03/01/21 08/31/21 release acetaminophen 500 mg tablet 1,000 mg PO Q6H tablet 04/21/21 08/31/21 buspirone 5 mg tablet 5 mg PO BID tablet 04/21/21 08/31/21 ondansetron HCl 4 mg tablet 4 mg PO BID PRN tablet 04/21/21 08/31/21 prednisone 10 mg tablet 2.5 mg PO TID tablet 04/21/21 08/31/21 diazepam 2 mg PO DAILY PRN 06/17/21 08/31/21 oxybutynin chloride 10 mg PO DAILY 06/17/21 08/31/21 fluticasone propionate 50 2 spray INTRANASAL BID g 07/21/21 08/31/21 mcg/actuation nasal spray,suspension Allergies Allergy/AdvReac Type Severity Reaction Status Date / Time amoxicillin Allergy Severe Hives Verified 10/18/21 20:13 fentanyl Allergy Severe Difficulty Verified 10/18/21 20:13 Breathing peach Allergy Severe Itching Verified 10/18/21 20:13 Sulfa (Sulfonamide Allergy Severe Hives Verified 10/18/21 20:13 Antibiotics) amitriptyline AdvReac Mild Unknown Verified 10/18/21 20:13 Review of Systems Review of Systems: All systems reviewed & are unremarkable except as noted in HPI and below Constitutional: Constitutional: Denies body ache(s), Denies chills, Denies excessive sweating, Denies fatigue, Denies fever(s), Denies headache(s), Denies lethargy, Denies malaise, Denies weakness and Denies weight loss Eyes: Eyes: Denies blurry vision, Denies change in vision and Denies loss of vision ENT: Denies dizziness, Denies ear discharge, Denies headache(s), Denies lip swelling, Denies epistaxis, Denies nasal congestion, Denies neck pain, Denies throat swelling and Denies tongue swelling Cardiovascular: Cardiovascular: Denies chest pain, Denies chest pain at rest, Denies chest pain with activity, Denies diaphoresis, Denies rapid heart rate, Denies edema, Denies irregular heart rhythm, Denies lightheadedness, Denies palpitations, Denies dyspnea and Denies dyspnea on exertion Respiratory: Respiratory: Denies chest congestion and Denies hemoptysis Gastrointestinal: Gastrointestinal: Denies abdominal pain, Denies melena, Denies hematochezia, Denies diarrhea, Denies nausea, Denies vomiting and Denies hematemesis Musculoskeletal: Musculoskeletal: Denies abnormal gait, Denies deformity, Denies joint swelling, Denies limited range of motion, Denies neck pain and Denies numbness Neurologic: Denies Abnormal speech present, Denies abnormal gait, Denies confusion, Denies dizziness, Denies headache(s), Denies focal weakness, Denies loss of vision, Denies numbness, Denies Other visual disturbances, Denies Sensory
[2021-10-19] MEDS: ALBUTEROL SULFATE NEB 2.5 MG/0.5 ML INH 5 MG INHALATION ×2 (00:36→09:40)
[2021-10-19] MEDS: IPRATROPIUM BR 0.02% INH SOLN 0.5 MG/2.5 ML VIAL INHALATION ×2 (00:37→09:40)
[2021-10-19 00:57] LABS: Basophils Percent Auto 0.3 % (0.2-1.2); Hematocrit 42.8 % (37.0-47.0); Hemoglobin 13.6 g/dL (12.0-15.0); Immature Granulocyte Absolute 0.04 K/mm3 (0.00-0.031); Immature Granulocyte Percent A 0.4 % (0-0.5); Lymphocytes Absolute Auto 0.67 K/mm3 (0.9-3.2); Lymphocytes Percent Auto 7.2 % (18.3-44.2); Mean Corpuscular HGB Conc 31.8 g/dl (32-36); Mean Corpuscular Hemoglobin 28.3 pg (26-34); Mean Platelet Volume 11.4 fl (7.4-10.4); Monocytes Percent Auto 10.4 % (2.6-8.5); Neutrophils Absolute Auto 7.7 K/mm3 (1.3-6.7); Neutrophils Percent Auto 81.7 % (45.5-73.1); Platelet Count Result 161 k/mm3 (150-375); Red Blood Count 4.81 M/mm3 (4.2-5.4); Red Cell Distribution Width 14.7 % (11.5-14.5); White Blood Count 9.4 K/mm3 (4.5-10.0)
[2021-10-19 01:08] LABS: Lactic Acid Reflex 1.2 mmol/L (0.7-2.1)
[2021-10-19 01:08] LABS: Alanine Aminotransferase 27 U/L (4-35); Albumin Level 3.8 g/dL (3.5-5.1); Alkaline Phosphatase 63 U/L (38-126); Anion Gap 7 mmol/L (8-16); Aspartate Amino Transferase 54 U/L (14-36); Bilirubin,Total 0.6 mg/dL (0.2-1.3); Blood Urea Nitrogen 15 mg/dL (7-17); Calcium 9.1 mg/dL (8.4-10.2); Carbon Dioxide 26 mmol/L (22-30); Chloride 102 mmol/L (98-107); Estimated CRCL calculation 68 ml/min; Estimated Glomerular Filt Rate 51; Glucose 129 mg/dL (65-110); Potassium 3.6 mmol/L (3.4-5.0); Sodium 135 mmol/L (137-145)
[2021-10-19 01:10] LABS: Partial Thromboplastin Time 26.4 SECONDS (22.3-36.8)
[2021-10-19 01:12] LABS: D Dimer 0.65 ug/mL (<0.48)
[2021-10-19 01:17] LABS: NT Pro B Type Natriuretic Pept 146 pg/mL (5-100)
[2021-10-19 01:20] LABS: Troponin I 0.017 ng/mL (0.000-0.034)
[2021-10-19] MEDS: ACETAMINOPHEN 325 MG TABLET 650 MG PO (01:33)
[2021-10-19] MEDS: DEXAMETHASONE SOD PHOS INJ 4 MG/ML VIAL 10 MG IV PUSH (01:34)
--- NOTE | 2021-10-19 02:49 | PC.NURSE ---
Pt states she wears 2 L home O2, 91% on room air in ED, pt placed on 2 L NC.
[2021-10-19 04:57] LABS: EDCOVIDSCREEN Negative (Negative)
[2021-10-19 04:59] LABS: Alveolar/Arterial O2 Gradient 27.9 mmHg; Carboxyhemoglobin 0.3 % THb (0-2.0); Fractional Inspired Oxygen 28 %; HCO3 ABG 24.8 mEq/l (22.0-26.0); Methemoglobin ABG 0.3 %THb (0-1.5); Oxygen Content ABG 18.4 %vol (16.0-22.0); Oxygen Saturation ABG 98.7 % (95.0-100.0); Oxyhemoglobin 96.8 % THb (90.0-100.0); PCO2 ABG 36.9 mmHg (35.0-45.0); PO2 ABG 128.2 mmHg (80.0-100.0); PO2 FiO2 Ratio Arterial Blood 4.58 %; Reduced Hemoglobin 2.6 %THb (0-5.0); Total Hemoglobin 13.4 g/dL (12.0-18.0); pH ABG 7.446 (7.350-7.450)
[2021-10-19 05:00] LABS: Device NASAL CANNULA; Modified Allen's Test Pass; Site Drawn RIGHT RADIAL
--- NOTE | 2021-10-19 06:37 | PC.NURSE ---
0621 Pt arrived from the ED to room 319 with a DX of pneumonia, asthma exacerbation. Pt has oxygen on at 2L/min/NC, no acute respiratory difficulty noted. Pt A/O x3. Denies discomfort. Plan of care discussed and encouraged to inform nurse if need assist with anything, verbalize understanding. Call harper placed in reach.
--- NOTE | 2021-10-19 08:20 | PM.IMHP ---
H&P: HPI History of Present Illness Date/Time: 10/19/21 07:21 Chief Complaint: Shortness of breath Narrative: 56-year-old female with a past medical history of asthma, IgG deficiency, rheumatoid arthritis on chronic immunosuppressive therapy, and prior necrotizing pneumonia who presented to the ER with shortness of breath for 2 days. On the patient reported that 2 days ago she began having cough productive of yellow to greenish sputum associated with shortness of breath and right-sided pleuritic chest pain. She reports the pain is worst with deep breathing and with coughing. Her symptoms were very similar to when she had her prior pneumonia. She had called her benefits technician Dr. Maxwell who prescribed her azithromycin. However few hours after taking her 1st dose of antibiotics her symptoms acutely worsen and she spiked a fever of 100? at home and she decided to come to the ER. She reports a decreased appetite for the last several days with associated dry heaves and nausea. She denies any loss of sense of taste or smell. She did have COVID pneumonia back in December of 2020 and is subsequently been fully vaccinated against COVID-19. She did have a COVID antigen test performed in the ER that was negative. She has been having associated rhinorrhea and postnasal drip. She did have a couple of loose stools yesterday but she associates this with not having eaten recently. She denies any abdominal pain. She denies any significant headache. She has not noted any lower extremity swelling. She reports that her has been ill with upper respiratory symptoms but has not been febrile. She does have IgG deficiency and reports that they have been having difficulty achieving adequate levels. Her IgG was recently increased in frequency from every 4 months to every 3 months. She is due to have an IgG infusion next week. She is compliant with her CPAP therapy at home but states that she cannot use our CPAP here as we do not have nasal pillows. She reports claustrophobia with fullface mask or with a nasal mask. Review of Systems Review of Systems: 12 systems were reviewed with pertinent positives and negatives per HPI. Except as documented in the HPI, all other systems were reviewed and are negative. [facility] Past Medical History Medical History (Updated 10/19/21 @ 08:50 by Linsey Coles DO) Acute respiratory failure with hypoxia LISA (acute kidney injury) (~12/2020) Aspergillus Asthma with COPD PFTs 05/10/2020 BPPV (benign paroxysmal positional vertigo) GERD (gastroesophageal reflux disease) Hemoptysis Hypothyroid IgG deficiency Morbid obesity Necrotizing pneumonia (~01/2021) MSSA YOON (obstructive sleep apnea) With CPAP of 7 Pneumonia due to COVID-19 virus (~12/2020) Prediabetes Rheumatoid arthritis Staphylococcus aureus pneumonia (~12/2019) SVT (supraventricular tachycardia) Vitamin D deficiency Surgical History Surgical History Delivery by section H/O lateral meniscus repair of right knee H/O tubal ligation History of hysterectomy History of tonsillectomy Hx of cholecystectomy Family History Family History Father Lung cancer Thyroid cancer Carcinoma of colon Mother Brain cancer Lung cancer Colitis COPD (chronic obstructive pulmonary disease) Depression Social History Social History (Updated 10/19/21 @ 08:37 by Linsey Coles DO) Social History: Patient lives at home with her of 27 years. Her 29-year-old son and daughter in law also live with them. 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 Primary care provider: Dr. Dirk Solis Code status: Full code Surrogate decision maker: Smoking packs per day: 1 Smoking cigarettes per day: 20.0 Years smoked: 10 Smoking pack-years: 10.00 Smoking status: Sharda
[2021-10-19] MEDS: SODIUM CHLORIDE 0.9% IV 1,000 ML 125 ML IV CONT (08:26)
[2021-10-19] MEDS: ACETAMINOPHEN 500 MG TABLET 1000 MG PO ×2 (08:33→16:22)
[2021-10-19 09:24] LABS: Glucose Point of Care 196 mg/dl (65-105)
[2021-10-19 12:01] LABS: Glucose Point of Care 191 mg/dl (65-105)
--- NOTE | 2021-10-19 12:30 | PM.IMPN ---
Progress Note: A&P Assessment and Plan (1) Pneumonia: Qualifiers: Laterality: right Lung location: unspecified part of lung Pneumonia type: due to unspecified organism Qualified Code(s): J18.9 - Pneumonia, unspecified organism Code(s): J18.9 - Pneumonia, unspecified organism Status: Acute Assessment and Plan: Chest x-ray shows mild airspace opacities in the right middle and lower lung zones and left lower lung zone consistent with pneumonia CTA shows no pulmonary embolism pneumonia involving right middle lobe and right lower lobe sputum culture ordered and pending blood cultures pending albuterol inhaler COVID test pending, patient had COVID back in December and she is vaccinated x2 shots, rapid in the ED was negative pulmonology has been consulted azithromycin ceftriaxone started Supplemental oxygen, wean to maintain saturations >92% (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, unspecified Status: Acute Assessment and Plan: underlying IgG deficiency Scheduled for an IgG transfusion next week consult pulmonology for further recommendations hold the patient's hydroxychloroquine and other immune modulators Blood cultures and sputum cultures pending IgG 597, IgA 79, IgM 53 (3) YOON (obstructive sleep apnea): Code(s): G47.33 - Obstructive sleep apnea (adult) (pediatric) Status: Acute Assessment and Plan: patient refusing facility CPAP home machine can be provided if needed continue with home settings if needed (4) Asthma with exacerbation: Qualifiers: Asthma persistence: unspecified Asthma severity: unspecified severity Qualified Code(s): J45.901 - Unspecified asthma with (acute) exacerbation Code(s): J45.901 - Unspecified asthma with (acute) exacerbation Status: Acute Assessment and Plan: See above plan (5) Diabetes: Code(s): E11.9 - Type 2 diabetes mellitus without complications Status: Acute Assessment and Plan: Glucose 129 Hold metformin Accu-Cheks AC and HS sliding scale insulin trend glucose adjust therapy as indicated (6) Hyperlipidemia: Code(s): E78.5 - Hyperlipidemia, unspecified Status: Acute Assessment and Plan: continue home fenofibrate and pravastatin check LFTs patient probably use lifestyle change education consult dietitian (7) Hypertension: Code(s): I10 - Essential (primary) hypertension Status: Acute Assessment and Plan: 124/63 Continue home losartan 100mg PO daily (8) Fever: Code(s): R50.9 - Fever, unspecified Status: Acute Assessment and Plan: Temps as high as 38.8 tylenol PRN trend WBC stable, however could be masked by the immunocompromise trend labs Time Spent With Patient Time with patient: Greater than 35 minutes Subjective Date/time seen: 10/19/21 1230 Interval history: Date/Time: 10/19/21 07:21 Narrative: 56-year-old female with a past medical history of asthma, IgG deficiency, rheumatoid arthritis on chronic immunosuppressive therapy, and prior necrotizing pneumonia who presented to the ER with shortness of breath for 2 days. On the patient reported that 2 days ago she began having cough productive of yellow to greenish sputum associated with shortness of breath and right-sided pleuritic chest pain. She reports the pain is worst with deep breathing and with coughing. Her symptoms were very similar to when she had her prior pneumonia. She had called her iron setter Dr. Maxwell who prescribed her azithromycin. However few hours after taking her 1st dose of antibiotics her symptoms acutely worsen and she spiked a fever of 100? at home and she decided to come to the ER. She reports a decreased appetite for the last several days with asso
--- NOTE | 2021-10-19 12:30 | P.PNIM_ITS ---
Progress Note: A&P Assessment and Plan (1) Pneumonia: Qualifiers: Laterality: right Lung location: unspecified part of lung Pneumonia type: due to unspecified organism Qualified Code(s): J18.9 - Pneumonia, unspecified organism Code(s): J18.9 - Pneumonia, unspecified organism Status: Acute Assessment and Plan: * Chest x-ray shows mild airspace opacities in the right middle and lower lung zones and left lower lung zone consistent with pneumonia * CTA shows no pulmonary embolism pneumonia involving right middle lobe and right lower lobe * sputum culture ordered and pending * blood cultures pending * albuterol inhaler * COVID test pending, patient had COVID back in December and she is vaccinated x2 shots, rapid in the ED was negative * pulmonology has been consulted * azithromycin ceftriaxone started * Supplemental oxygen, wean to maintain saturations >92% (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, unspecified Status: Acute Assessment and Plan: * underlying IgG deficiency * Scheduled for an IgG transfusion next week * consult pulmonology for further recommendations * hold the patient's hydroxychloroquine and other immune modulators * Blood cultures and sputum cultures pending * IgG 597, IgA 79, IgM 53 (3) YOON (obstructive sleep apnea): Code(s): G47.33 - Obstructive sleep apnea (adult) (pediatric) Status: Acute Assessment and Plan: * patient refusing facility CPAP * home machine can be provided if needed * continue with home settings if needed (4) Asthma with exacerbation: Qualifiers: Asthma persistence: unspecified Asthma severity: unspecified severity Qualified Code(s): J45.901 - Unspecified asthma with (acute) exacerbation Code(s): J45.901 - Unspecified asthma with (acute) exacerbation Status: Acute Assessment and Plan: * See above plan (5) Diabetes: Code(s): E11.9 - Type 2 diabetes mellitus without complications Status: Acute Assessment and Plan: * Glucose 129 * Hold metformin * Accu-Cheks AC and HS * sliding scale insulin * trend glucose * adjust therapy as indicated (6) Hyperlipidemia: Code(s): E78.5 - Hyperlipidemia, unspecified Status: Acute Assessment and Plan: * continue home fenofibrate and pravastatin * check LFTs * patient probably use lifestyle change education * consult dietitian (7) Hypertension: Code(s): I10 - Essential (primary) hypertension Status: Acute Assessment and Plan: * 124/63 * Continue home losartan 100mg PO daily (8) Fever: Code(s): R50.9 - Fever, unspecified Status: Acute Assessment and Plan: * Temps as high as 38.8 * tylenol PRN * trend * WBC stable, however could be masked by the immunocompromise * trend labs Time Spent With Patient Time with patient: Greater than 35 minutes Subjective Date/time seen: 10/19/21 1230 Interval history: Date/Time: 10/19/21 07:21 Narrative: 56-year-old female with a past medical history of asthma, IgG deficiency, rheumatoid arthritis on chronic immunosuppressive therapy, and prior necrotizing pneumonia who presented to the ER with shortness of breath for 2 days. On the patient reported that 2 days ago she began having cough productive
[2021-10-19] MEDS: ALBUTEROL SULFATE (*SP) AEROSOL 1 PUFF 2 PUFF INHALATION ×2 (16:32→20:37)
[2021-10-19 16:44] LABS: Glucose Point of Care 117 mg/dl (65-105)
[2021-10-19] MEDS: traMADol HCL (*CRX) 50 MG TABLET PO (21:15)
[2021-10-19] MEDS: ENOXAPARIN 40 MG/0.4 ML SYRINGE SUB-Q (21:30)
[2021-10-19 21:50] LABS: Glucose Point of Care 128 mg/dl (65-105)
[2021-10-20] VITALS (16 sets, daily range): BP systolic 127–136; BP diastolic 57–79; PULSE 68–94; RESP 18–30; TEMP 36.6–37.2; O2SAT 95–99
[2021-10-20] MEDS: SODIUM CHLORIDE 0.9% IV 1,000 ML 125 ML IV CONT ×3 (01:37→22:05)
[2021-10-20] MEDS: ACETAMINOPHEN 500 MG TABLET 1000 MG PO ×2 (01:38→09:58)
[2021-10-20] MEDS: ALBUTEROL SULFATE (*SP) AEROSOL 1 PUFF 2 PUFF INHALATION (02:58)
--- NOTE | 2021-10-20 04:19 | PC.NURSE ---
At [address] Nidaye , informed of audible wheezing , new orders received.
[2021-10-20] MEDS: ALBUTEROL SULFATE NEB 2.5 MG/0.5 ML INH INHALATION ×5 (04:42→21:32)
[2021-10-20] MEDS: IPRATROPIUM BR 0.02% INH SOLN 0.5 MG/2.5 ML VIAL INHALATION ×5 (04:42→21:32)
[2021-10-20 06:43] LABS: Hematocrit 37.1 % (37.0-47.0); Hemoglobin 11.9 g/dL (12.0-15.0); Mean Corpuscular HGB Conc 32.1 g/dl (32-36); Mean Corpuscular Hemoglobin 28.3 pg (26-34); Mean Corpuscular Volume 88.3 fl (80-100); Mean Platelet Volume 11.2 fl (7.4-10.4); Platelet Count Result 146 k/mm3 (150-375); Red Cell Distribution Width 14.9 % (11.5-14.5); White Blood Count 11.1 K/mm3 (4.5-10.0)
[2021-10-20 06:58] LABS: Alanine Aminotransferase 25 U/L (4-35); Albumin Level 3.4 g/dL (3.5-5.1); Alkaline Phosphatase 53 U/L (38-126); Anion Gap 6 mmol/L (8-16); Aspartate Amino Transferase 52 U/L (14-36); Bilirubin,Total 0.7 mg/dL (0.2-1.3); Blood Urea Nitrogen 16 mg/dL (7-17); Calcium 8.5 mg/dL (8.4-10.2); Carbon Dioxide 27 mmol/L (22-30); Chloride 105 mmol/L (98-107); Estimated CRCL calculation 82 ml/min; Estimated Glomerular Filt Rate > 60; Glucose 118 mg/dL (65-110); Magnesium 1.9 mg/dL (1.6-2.3); Potassium 3.5 mmol/L (3.4-5.0); Sodium 138 mmol/L (137-145)
[2021-10-20 08:01] LABS: Glucose Point of Care 86 mg/dl (65-105)
[2021-10-20] MEDS: ENOXAPARIN 40 MG/0.4 ML SYRINGE SUB-Q ×2 (08:26→23:16)
[2021-10-20] MEDS: FLUTICASONE PROPIONATE 0.05% NA SPR 16 GM BTL (*BKC) 1 SPRAY NASAL (09:06)
--- NOTE | 2021-10-20 10:42 | PM.CNPUL ---
Assessment and Plan Assessment and plan (1) Pneumonia: Qualifiers: Laterality: right Lung location: lower lobe of lung Pneumonia type: due to unspecified organism Qualified Code(s): J18.9 - Pneumonia, unspecified organism Code(s): J18.9 - Pneumonia, unspecified organism Status: Acute Assessment and Plan: 56-year-old female with multiple medical problems including IgG immune deficiency on IV replacement therapy, history rheumatoid arthritis, obesity, sleep apnea, history of asthma presented with acute illness characterized by cough, fever, chills and evidence of pneumonic infiltrates on chest x-ray and chest CT. The patient's history in conjunction with the radiographic studies, the positive sputum for gram positive cocci as well as the quick resolution of fever suggest strep pneumonia. Patient is on appropriate antibiotics. I would continue with current regimen consisting of the IV antibiotics, DVT prophylaxis as well as her maintenance bronchodilators for her asthma. There is no evidence of asthma exacerbation. The patient complaining of right pleuritic chest pain, worse with coughing and deep inspirations. There is no evidence of pulmonary embolism on chest CT and the pleuritic chest pain is either related to pneumonia or chest wall muscle strain. I would continue with better pain control regarding right pleuritic chest pain as patient has increasing anxiety related to pain. Patient does not want to be on opiates for pain control. 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, unspecified Status: Acute (5) Asthma: Qualifiers: Asthma complication type: unspecified Asthma persistence: unspecified Asthma severity: unspecified severity Qualified Code(s): J45.909 - Unspecified asthma, uncomplicated Code(s): J45.909 - Unspecified asthma, uncomplicated Status: Chronic (6) Rheumatoid arthritis: Qualifiers: Rheumatoid arthritis location: unspecified site Rheumatoid factor presence: unspecified presence Qualified Code(s): M06.9 - Rheumatoid arthritis, unspecified Code(s): M06.9 - Rheumatoid arthritis, unspecified Status: Chronic (7) Sleep apnea: Qualifiers: Sleep apnea type: obstructive Qualified Code(s): G47.33 - Obstructive sleep apnea (adult) (pediatric) Code(s): G47.30 - Sleep apnea, unspecified Status: Acute History of Present Illness History of Present Illness Consult date: 10/20/21 Chief complaint: Pneumonia, Asthma Exacerbation Narrative: This 56-year-old female presented with 1 day history of fever chills and mild coughing. The patient has multiple medical problems including rheumatoid arthritis, IgG immuno deficiency on IV replacement therapy, history of asthma, morbid obesity, obstructive sleep apnea. Over the last month the patient had what sounds like an upper respiratory infection for which she received antibiotics twice with levofloxacin p.o. and Zithromax p.o. on an outpatient basis. One day prior to this admission she started having fever chills mild coughing and also some right chest pain. Patient's temperature was 101.7? prior to coming to the hospital. Workup with a chest CT showed pneumonia in right mid lobe and right lower lobe. There is no evidence of pulmonary embolism. Patient has been treated with IV ant
[2021-10-20 11:02] LABS: Band Neutrophils Percent 20 % (0-6); Lymphocytes Absolute Manual 0.55 K/mm3 (1.1-4.5); Lymphocytes Percent Manual 5 % (18-44); Monocytes Absolute Manual 0.66 K/mm3 (0.1-0.90); Monocytes Percent Manual 6 % (3-9); Neutrophils Absolute Manual 9.87 K/mm3 (1.7-7.2); Neutrophils Percent Manual 69 % (46-73); Platelet Estimate Adequate (Adequate); Total Cells Counted 100
[2021-10-20] MEDS: busPIRone HCL 5 MG TABLET PO ×2 (11:31→18:05)
[2021-10-20] MEDS: MONTELUKAST SODIUM 10 MG TABLET PO (11:31)
[2021-10-20] MEDS: PRAVASTATIN SODIUM 20 MG TABLET PO (11:31)
[2021-10-20] MEDS: SPIRONOLACTONE 50 MG TABLET PO (11:32)
[2021-10-20] MEDS: predniSONE 2.5 MG TABLET 7.5 MG PO (11:32)
[2021-10-20] MEDS: LOSARTAN POTASSIUM 50 MG TABLET 100 MG PO (11:32)
[2021-10-20] MEDS: FOLIC ACID 1 MG TABLET 3 MG PO (11:32)
[2021-10-20 11:59] LABS: Glucose Point of Care 93 mg/dl (65-105)
--- NOTE | 2021-10-20 16:32 | PM.IMPN ---
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 and gets infusions Q3 months (3) YOON (obstructive sleep apnea): Code(s): G47.33 - Obstructive sleep apnea (adult) (pediatric) Status: Acute Assessment and Plan: refusing hospital cpap (4) Asthma with exacerbation: Qualifiers: Asthma persistence: unspecified Asthma severity: unspecified severity Qualified Code(s): J45.901 - Unspecified asthma with (acute) exacerbation Code(s): J45.901 - Unspecified asthma with (acute) exacerbation Status: Acute Assessment and Plan: As above (5) Diabetes: Code(s): E11.9 - Type 2 diabetes mellitus without complications Status: Acute Assessment and Plan: Last glucose 93 -okay to switch to regular diet so pt will eat ore -continue SSI (6) Hyperlipidemia: Code(s): E78.5 - Hyperlipidemia, unspecified Status: Acute Assessment and Plan: Chronic, continue home fenofibrate and pravastatin (7) Hypertension: Code(s): I10 - Essential (primary) hypertension Status: Acute Assessment and Plan: Last bp 127/57 -continue losartan and spironolactone (8) Fever: Code(s): R50.9 - Fever, unspecified Status: Acute Assessment and Plan: due to pna, monitor Time Spent With Patient Time with patient: 25 - 35 minutes Subjective Date/time seen: 10/20/21 16:32 Interval history: Pt is a 56 y/o female here for PNA. Pt was seen today and continues to cough up yellow/[place] sputum. She has chest pain under her right breast when she coughs that she describes as a sharp pain. She feels SOB intermittently and can happen at rest or with movement. She denies nausea, vomiting, diarrhea or constipation. She has had a decreased appetite but hates the diabetic diet here and requests a regular diet. She usually only wears o2 with activity at home but is having to use it here. Review of Systems Review of Systems: All systems reviewed & are unremarkable except as noted in HPI and below Exam Narrative: General: Well developed well nourished patient in NAD HEENT: normocephalic Neck: supple Neuro: Alert and oriented x4 CV:RRR Resp:Wheezing and ronchi, worse in the right lung on exam. Productive cough with each inspiration at bedside. no conversational dyspnea Abd: Soft, non distended. No pain to palpation. Positive bowel sounds Extremities: No swelling, erythema, or pain to palpation. Objective Data Vital Signs Vital Signs: Vital Signs - 24 hr 10/19/21 16:33 10/19/21 20:00 10/19/21 20:41 Temperature Pulse Rate 78 Respiratory Rate 18 Blood Pressure Pulse Oximetry 96 98 98 10/19/21 22:00 10/20/21 04:41 10/20/21 04:50 Temperature 97.4 F L Pulse Rate 74 89 90 Respiratory Rate 22 H Blood Pressure 135/62 Pulse Oximetry 98 10/20/21 06:00 10/20/21 09:14 10/20/21 09:17 Temperature 97.8 F Pulse Rate 68 86 Respiratory Rate 20 22 H Blood Pressure 132/79 Pulse Oximetry 97 95 10/20/21 09:22 10/20/21 12:58 10/20/21 13:07 Temperature Pulse Rate 91 93 89 Respiratory Rate 2
[2021-10-20 17:00] LABS: Glucose Point of Care 111 mg/dl (65-105)
[2021-10-20] MEDS: traMADol HCL (*CRX) 50 MG TABLET PO (18:11)
[2021-10-20] MEDS: FLUTICASONE/SALMETEROL 115-21 MCG INHALER 1 PUFF 2 PUFF INHALATION (21:32)
[2021-10-21] VITALS (15 sets, daily range): BP systolic 105–152; BP diastolic 51–93; PULSE 82–106; RESP 18–26; TEMP 36.1–37.3; O2SAT 93–99
[2021-10-21] MEDS: ALBUTEROL SULFATE NEB 2.5 MG/0.5 ML INH INHALATION ×5 (00:39→19:50)
[2021-10-21] MEDS: IPRATROPIUM BR 0.02% INH SOLN 0.5 MG/2.5 ML VIAL INHALATION ×5 (00:40→19:50)
[2021-10-21] MEDS: traMADol HCL (*CRX) 50 MG TABLET PO ×2 (02:47→10:38)
[2021-10-21 02:54] LABS: Glucose Point of Care 133 mg/dl (65-105)
[2021-10-21] MEDS: LORazepam INJ (*CRX) 2 MG/ML VIAL 1 MG IV PUSH (04:37)
[2021-10-21] MEDS: LEVOTHYROXINE SODIUM 88 MCG TABLET PO (06:29)
[2021-10-21 06:41] LABS: Alanine Aminotransferase 26 U/L (4-35); Albumin Level 3.7 g/dL (3.5-5.1); Alkaline Phosphatase 77 U/L (38-126); Anion Gap 12 mmol/L (8-16); Aspartate Amino Transferase 38 U/L (14-36); Bilirubin,Total 0.9 mg/dL (0.2-1.3); Blood Urea Nitrogen 13 mg/dL (7-17); Calcium 8.8 mg/dL (8.4-10.2); Carbon Dioxide 22 mmol/L (22-30); Chloride 102 mmol/L (98-107); Estimated CRCL calculation 82 ml/min; Estimated Glomerular Filt Rate > 60; Glucose 115 mg/dL (65-110); Potassium 3.4 mmol/L (3.4-5.0); Sodium 136 mmol/L (137-145)
[2021-10-21 06:43] LABS: Hematocrit 37.6 % (37.0-47.0); Hemoglobin 11.8 g/dL (12.0-15.0); Mean Corpuscular HGB Conc 31.4 g/dl (32-36); Mean Corpuscular Hemoglobin 28.1 pg (26-34); Mean Corpuscular Volume 89.5 fl (80-100); Mean Platelet Volume 11.2 fl (7.4-10.4); Platelet Count Result 180 k/mm3 (150-375); Red Cell Distribution Width 14.8 % (11.5-14.5); White Blood Count 11.1 K/mm3 (4.5-10.0)
[2021-10-21] MEDS: FLUTICASONE PROPIONATE 0.05% NA SPR 16 GM BTL (*BKC) 1 SPRAY NASAL (08:42)
[2021-10-21] MEDS: predniSONE 2.5 MG TABLET 7.5 MG PO (08:42)
[2021-10-21] MEDS: PANTOPRAZOLE 40 MG TABLET PO (08:43)
[2021-10-21] MEDS: busPIRone HCL 5 MG TABLET PO ×2 (08:43→18:54)
[2021-10-21] MEDS: LORATADINE 10 MG TABLET PO (08:43)
[2021-10-21] MEDS: ENOXAPARIN 40 MG/0.4 ML SYRINGE SUB-Q ×2 (08:43→21:05)
[2021-10-21] MEDS: FOLIC ACID 1 MG TABLET 3 MG PO (08:43)
[2021-10-21] MEDS: PRAVASTATIN SODIUM 20 MG TABLET PO (08:43)
[2021-10-21] MEDS: SPIRONOLACTONE 50 MG TABLET PO (08:43)
[2021-10-21] MEDS: MONTELUKAST SODIUM 10 MG TABLET PO (08:43)
[2021-10-21] MEDS: LOSARTAN POTASSIUM 50 MG TABLET 100 MG PO (08:43)
--- NOTE | 2021-10-21 10:53 | PM.PNPUL ---
Progress Note: A&P Assessment and Plan (1) Pneumonia: Qualifiers: Pneumonia type: due to unspecified organism Laterality: right Lung location: lower lobe of lung Qualified Code(s): J18.9 - Pneumonia, unspecified organism Code(s): J18.9 - Pneumonia, unspecified organism Status: Acute Assessment and Plan: 56-year-old female morbidly obese with history of asthma obstructive sleep apnea, IgG immunodeficiency, rheumatoid arthritis, with right community-acquired pneumonia which has responded to antibiotics with fever resolution. patient continues to have right pleuritic chest pain which aggravates her anxiety and interferes with sleep. She has on pain control medications with no improvement. Chest CT showed no evidence of pulmonary embolism. There was a small pleural effusion on right, basal atelectasis and consolidations related to pneumonia. Final sputum culture pending. Continue with current antibiotics, DVT prophylaxis. Need to add medication for better pain control. The patient is allergic to fentanyl. The case was discussed with the hospitalist, will consider stronger analgesic medication. (2) Pleuritic chest pain: Code(s): R07.81 - Pleurodynia Status: Resolved (3) Rheumatoid arthritis: Qualifiers: Rheumatoid arthritis location: unspecified site Rheumatoid factor presence: unspecified presence Qualified Code(s): M06.9 - Rheumatoid arthritis, unspecified Code(s): M06.9 - Rheumatoid arthritis, unspecified Status: Chronic (4) YOON (obstructive sleep apnea): Code(s): G47.33 - Obstructive sleep apnea (adult) (pediatric) Status: Acute (5) Obesity: Qualifiers: Obesity type: due to excess calories Obesity classification: adult class 3 (BMI >= 40) Serious obesity comorbidity presence: with serious comorbidity Body mass index: BMI 50.0-59.9 Qualified Code(s): E66.01 - Morbid (severe) obesity due to excess calories; Z68.43 - Body mass index [BMI] 50.0-59.9, adult Code(s): E66.9 - Obesity, unspecified Status: Acute (6) Asthma: Qualifiers: Asthma severity: unspecified severity Asthma persistence: unspecified Asthma complication type: unspecified Qualified Code(s): J45.909 - Unspecified asthma, uncomplicated Code(s): J45.909 - Unspecified asthma, uncomplicated Status: Chronic Subjective Date/time seen: 10/21/21 10:53 patient continues to complain of right sided pleuritic chest pain. She has no fever. She did not sleep well last night. She underwent CT PA today. She has been afebrile on antibiotics. Review of Systems Review of Systems: All systems reviewed & are unremarkable except as noted in HPI and below Exam Narrative: GENERAL APPEARANCE: Well developed, well nourished, morbidly obese, alert and cooperative, looking anxious and appears to be in in mild respiratory distress while breathing oxygen via nasal cannula SKIN: Inspection of the skin reveals no rashes, ulcerations or petechiae. HEENT: Sclerae anicteric and conjunctivae pink and moist. Extraocular movements were intact and pupils were equal, round. NECK: Supple. There was no thyroid enlargement, and no tenderness, or masses were felt. LUNGS: few rhonchi anteriorly no wheezing CARDIAC: There was a regular rate and rhythm without any murmurs, gallops, rubs. ABDOMEN: Soft and nontender with normal bowel sounds. There was no organomegaly. LYMPH NODES: No lymphadenopathy was appreciated in the neck. EXTREMITIES: No cyanosis, clubbing or edema. NEUROLOGIC: Alert and oriented x 3. Normal affect. Objective Data Vital Signs Vital Signs: Vital Signs - 24 hr 10/20/21 12:58 10/20/21 13:07 10/20/21 14:00 Temperature 37.2 C Pulse Rate 93 89 92 Respiratory Rate 22 H 22 H 22 H Blood Pressure 127/57 L Pulse Oximetry 99 10/20/21 16:45 10/20/21 16:53 10/20/21 20:40 Temperature Pulse Rate 94 90 90 Respiratory Rate 30
--- NOTE | 2021-10-21 10:58 | PCRCNOTE ---
Window of time for administration has passed. See next scheduled administration.
--- NOTE | 2021-10-21 15:32 | PM.IMPN ---
Progress Note: A&P Assessment and Plan (1) Pneumonia: Qualifiers: Laterality: right Lung location: unspecified part of lung Pneumonia type: due to unspecified organism Qualified Code(s): J18.9 - Pneumonia, unspecified organism Code(s): J18.9 - Pneumonia, unspecified organism Status: Acute Assessment and Plan: Symptoms and CT consistent with PNA, CT with worsening symptoms today -continue ceftriaxone and azithromycin but will add vancomycin due to sputum results of staph aureus -continue schedule breathing tx -add incentive spirometer and [facility] -pulmonology onboard -immunosuppressed, hold immunosuppressive therapy but continue home prednisone -cp likely due to pna, no ekg findings and seems pleuritic in nature. 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 and gets infusions Q3 months (3) YOON (obstructive sleep apnea): Code(s): G47.33 - Obstructive sleep apnea (adult) (pediatric) Status: Acute (4) Asthma with exacerbation: Qualifiers: Asthma persistence: unspecified Asthma severity: unspecified severity Qualified Code(s): J45.901 - Unspecified asthma with (acute) exacerbation Code(s): J45.901 - Unspecified asthma with (acute) exacerbation Status: Acute Assessment and Plan: As above (5) Diabetes: Qualifiers: Diabetes mellitus type: type 2 Code(s): E11.9 - Type 2 diabetes mellitus without complications Status: Acute Assessment and Plan: Last glucose 115 -continue SSI (6) Hyperlipidemia: Code(s): E78.5 - Hyperlipidemia, unspecified Status: Acute Assessment and Plan: Chronic, continue home fenofibrate and pravastatin (7) Hypertension: Code(s): I10 - Essential (primary) hypertension Status: Acute Assessment and Plan: Last bp 152/73 -continue losartan and spironolactone (8) Fever: Code(s): R50.9 - Fever, unspecified Status: Acute Assessment and Plan: due to pna, monitor Additional Plan Subjective Date/time seen: 10/21/21 15:32 Interval history: Pt is a 56 y/o female here for PNA. Patient was seen today and is not feeling better. She had a very rough night and was short of breath and had right-sided pleuritic chest pain. She said this pain is worse with coughing or heavy breathing and feels like a stabbing pain. She continues to have a decreased appetite. She says she has a history of staph infections including 1 in her finger. at bedside with lots of questions. I asked the nursing flight test supervisor and RN to be at bedside. He was unhappy with the care overnight. This was discussed and questions were answered. Exam Narrative: General: Well developed well nourished patient in NAD HEENT: normocephalic Neck: supple Neuro: Alert and oriented x4 CV:RRR Resp:Wheezing and ronchi, worse in the right lung on exam. Unable to take deep breaths due to pain. No conversational dyspnea Abd: Soft, non distended. No pain to palpation. Positive bowel sounds Extremities: No swelling, erythema, or pain to palpation. Objective Data Vital Signs Vital Signs: Vital Signs - 24 hr 10/20/21 16:45 10/20/21 16:53 10/20/21 20:40 Temperature Pulse Rate 94 90 90 Respiratory Rate 30 H 24 H 20 Blood Pressure Pulse Oximetry 98 10/20/21 21:30 10/20/21 21:40 10/20/21 22:00 Temperature 98.4 F Pulse Rate 90 90 92 Respiratory Rate 20 20 18 Blood Pressure 136/73 Pulse Oximetry 98 10/21/21 00:40 10/21/21 00:50 10/21/21 03:00 Temperature Pulse Rate 90 90 96 Respiratory Rate 20 20 24 H Blood Pressure Pulse Oximetry 10/21/21 03:10 10/21/21 05:45 10/21/21 12:30 Temperature 99.1 F Pulse Rate 96 106 H 8
--- NOTE | 2021-10-21 15:33 | ECG_ITS ---
Measurements Intervals [place] Rate: 88 P: 50 MN: 155 QRS: 42 QRSD: 86 T: 36 QT: 340 QTc: 412 Interpretive Statements SINUS RHYTHM BASELINE WANDER- I, II, III, V2, V6 NORMAL ECG Electronically Signed On 10-21-2021 17:02:40 [employer]ARM[employer]Y [employer]OVATION ASSISTANT by Jake Cassidy D.O.
[2021-10-21] MEDS: LORazepam (*CRX) 0.5 MG TABLET PO (18:54)
[2021-10-21] MEDS: FLUTICASONE/SALMETEROL 115-21 MCG INHALER 1 PUFF 2 PUFF INHALATION (19:50)
[2021-10-21] MEDS: ACETAMINOPHEN 500 MG TABLET 1000 MG PO (23:19)
[2021-10-22] VITALS (12 sets, daily range): BP systolic 105–159; BP diastolic 45–77; PULSE 83–100; RESP 16–26; TEMP 36.3–36.4; O2SAT 97–99
[2021-10-22] MEDS: traMADol HCL (*CRX) 50 MG TABLET PO ×2 (03:34→21:42)
[2021-10-22] MEDS: IPRATROPIUM BR 0.02% INH SOLN 0.5 MG/2.5 ML VIAL INHALATION ×3 (03:45→16:00)
[2021-10-22] MEDS: ALBUTEROL SULFATE NEB 2.5 MG/0.5 ML INH INHALATION ×3 (03:45→16:00)
[2021-10-22 05:00] LABS: Glucose Point of Care 103 mg/dl (65-105)
[2021-10-22] MEDS: LEVOTHYROXINE SODIUM 88 MCG TABLET PO (05:42)
--- NOTE | 2021-10-22 06:23 | PM.IMPN ---
Progress Note: A&P Assessment and Plan (1) Pneumonia: Qualifiers: Laterality: right Lung location: unspecified part of lung Pneumonia type: due to unspecified organism Qualified Code(s): J18.9 - Pneumonia, unspecified organism Code(s): J18.9 - Pneumonia, unspecified organism Status: Acute Assessment and Plan: Symptoms and CT consistent with PNA, CT with worsening pneumonia 10/21/21 -continue cefepime, azithromycin, and vancomycin - sputum culture growing Staph aureus, will await the sensitivities. PICC line in place -continue schedule breathing tx - continue incentive spirometer and [facility] -pulmonology onboard -immunosuppressed, hold immunosuppressive therapy but continue home prednisone -cp likely due to pna, no ekg findings and seems pleuritic in nature. - consider IV steroids due to the amount of wheezing today, will wait for pulmonology is recommendations -add mucinex -continue o2 as needed for sats <90. She is usually only on o2 at home with activity. 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 and gets infusions Q3 months (3) YOON (obstructive sleep apnea): Code(s): G47.33 - Obstructive sleep apnea (adult) (pediatric) Status: Acute (4) Asthma with exacerbation: Qualifiers: Asthma persistence: unspecified Asthma severity: unspecified severity Qualified Code(s): J45.901 - Unspecified asthma with (acute) exacerbation Code(s): J45.901 - Unspecified asthma with (acute) exacerbation Status: Acute Assessment and Plan: As above (5) Diabetes: Qualifiers: Diabetes mellitus type: type 2 Code(s): E11.9 - Type 2 diabetes mellitus without complications Status: Acute Assessment and Plan: Last glucose 103 -continue SSI (6) Hyperlipidemia: Code(s): E78.5 - Hyperlipidemia, unspecified Status: Acute Assessment and Plan: Chronic, continue home fenofibrate and pravastatin (7) Hypertension: Code(s): I10 - Essential (primary) hypertension Status: Acute Assessment and Plan: Last bp 105/45 -continue losartan and spironolactone but will add parameters (8) Fever: Code(s): R50.9 - Fever, unspecified Status: Acute Assessment and Plan: no fever since 10/19 (9) Acute and chronic respiratory failure with hypoxia: Code(s): J96.21 - Acute and chronic respiratory failure with hypoxia Status: Acute Assessment and Plan: Typically not on o2 at rest at home but is on it with activity -continue o2 for sats <90 Additional Plan Labs pending at the time of this documentation. Will re-evaluate when they are posted. Subjective Date/time seen: 10/22/21 06:23 Interval history: Pt is a 56 y/o female here for PNA. Patient was seen today and states she feels about the same. She continues to have shortness of breath with dyspnea on exertion. She is unable to lay flat chronically and she has been sitting up. She continues to cough up brown sputum. She also still has her right-sided stabbing chest pain when she coughs. She denies fevers or chills. She does not have regular bowel movements at home but has no complaints night area. She continues to have a decreased appetite. Exam Narrative: General: Well developed well nourished patient in NAD HEENT: normocephalic Neck: supple Neuro: Alert and oriented x4 CV:RRR Resp:Wheezing and ronchi, worse in the right lung on exam. Unable to take deep breaths due to pain. No conversational dyspnea. pain to palpation to the right chest Abd: Soft, non distended. No pain to palpation. Positive bowel sounds Extremities: No swelling, erythema, or pain to palpation. Objective Data Vital Signs Vital
[2021-10-22] MEDS: FLUTICASONE/SALMETEROL 115-21 MCG INHALER 1 PUFF 2 PUFF INHALATION (09:08)
[2021-10-22] MEDS: MONTELUKAST SODIUM 10 MG TABLET PO (09:25)
[2021-10-22] MEDS: FOLIC ACID 1 MG TABLET 3 MG PO (09:25)
[2021-10-22] MEDS: predniSONE 2.5 MG TABLET 7.5 MG PO (09:25)
[2021-10-22] MEDS: SPIRONOLACTONE 50 MG TABLET PO (09:25)
[2021-10-22] MEDS: PRAVASTATIN SODIUM 20 MG TABLET PO (09:25)
[2021-10-22] MEDS: PANTOPRAZOLE 40 MG TABLET PO (09:25)
[2021-10-22] MEDS: FLUTICASONE PROPIONATE 0.05% NA SPR 16 GM BTL (*BKC) 1 SPRAY NASAL (09:25)
[2021-10-22] MEDS: ENOXAPARIN 40 MG/0.4 ML SYRINGE SUB-Q ×2 (09:25→20:32)
[2021-10-22] MEDS: LOSARTAN POTASSIUM 50 MG TABLET 100 MG PO (09:25)
[2021-10-22] MEDS: busPIRone HCL 5 MG TABLET PO ×2 (09:26→16:46)
[2021-10-22] MEDS: LORATADINE 10 MG TABLET PO (09:26)
--- NOTE | 2021-10-22 09:40 | PM.PNPUL ---
Progress Note: A&P Assessment and Plan (1) Pneumonia: Qualifiers: Laterality: right Lung location: lower lobe of lung Pneumonia type: due to unspecified organism Qualified Code(s): J18.9 - Pneumonia, unspecified organism Code(s): J18.9 - Pneumonia, unspecified organism Status: Acute Assessment and Plan: 56-year-old female morbidly obese with history of asthma, obstructive sleep apnea, IgG immunodeficiency, rheumatoid arthritis, with community-acquired pneumonia which has responded to antibiotics with fever resolution. patient continues to have right pleuritic chest pain which aggravates her anxiety and interferes with sleep. She continues to have right pleuritic chest pain but less than before. Chest CT showed no evidence of pulmonary embolism. There was a small pleural effusion on right, basal atelectasis and consolidations related to pneumonia. Gas exchange unchanged over the last 48 hours. On antibiotics for Staph in sputum. Staff is methicillin-susceptible. She is afebrile. Continue with current antibiotics, DVT prophylaxis. Repeat chest x-ray in a.m.. (2) Pleuritic chest pain: Code(s): R07.81 - Pleurodynia Status: Resolved (3) Rheumatoid arthritis: Qualifiers: Rheumatoid arthritis location: unspecified site Rheumatoid factor presence: unspecified presence Qualified Code(s): M06.9 - Rheumatoid arthritis, unspecified Code(s): M06.9 - Rheumatoid arthritis, unspecified Status: Chronic (4) YOON (obstructive sleep apnea): Code(s): G47.33 - Obstructive sleep apnea (adult) (pediatric) Status: Acute (5) Obesity: Qualifiers: Body mass index: BMI 50.0-59.9 Obesity classification: adult class 3 (BMI >= 40) Obesity type: due to excess calories Serious obesity comorbidity presence: with serious comorbidity Qualified Code(s): E66.01 - Morbid (severe) obesity due to excess calories; Z68.43 - Body mass index [BMI] 50.0-59.9, adult Code(s): E66.9 - Obesity, unspecified Status: Acute (6) Asthma: Qualifiers: Asthma complication type: unspecified Asthma persistence: unspecified Asthma severity: unspecified severity Qualified Code(s): J45.909 - Unspecified asthma, uncomplicated Code(s): J45.909 - Unspecified asthma, uncomplicated Status: Chronic Subjective Date/time seen: 10/22/21 09:40 Patient continues to complain of a right pleuritic chest pain. She feels cold this morning. She has no chills. Shortness of breath about the same. Remaining on same oxygen flow 3 liters/minute, O2 saturation unchanged over the last 24 hours. Had PICC line inserted. Review of Systems Review of Systems: All systems reviewed & are unremarkable except as noted in HPI and below Exam Narrative: GENERAL APPEARANCE: Well developed, well nourished, morbidly obese, alert and cooperative, looking anxious and appears to be in in mild respiratory distress while breathing oxygen via nasal cannula SKIN: Inspection of the skin reveals no rashes, ulcerations or petechiae. HEENT: Sclerae anicteric and conjunctivae pink and moist. Extraocular movements were intact and pupils were equal, round. NECK: Supple. There was no thyroid enlargement, and no tenderness, or masses were felt. LUNGS: few rhonchi anteriorly, mild localized expiratory wheezing left upper chest. CARDIAC: There was a regular rate and rhythm without any murmurs, gallops, rubs. ABDOMEN: Soft and nontender with normal bowel sounds. There was no organomegaly. LYMPH NODES: No lymphadenopathy was appreciated in the neck. EXTREMITIES: No cyanosis, clubbing or edema. NEUROLOGIC: Alert and oriented x 3. Normal affect. Objective Data Vital Signs Vital Signs: Vital Signs - 24 hr 10/21/21 12:30 10/21/21 12:37 10/21/21 12:38 Temperature Pulse Rate 88 92 Respiratory Rate 24 H 24 H Blood Pressure Pulse Oximetry 93 10/21/21 14:00 10/21/21
[2021-10-22 10:05] LABS: Hematocrit 35.2 % (37.0-47.0); Hemoglobin 11.1 g/dL (12.0-15.0); Mean Corpuscular HGB Conc 31.5 g/dl (32-36); Mean Corpuscular Hemoglobin 28.1 pg (26-34); Mean Corpuscular Volume 89.1 fl (80-100); Mean Platelet Volume 11.1 fl (7.4-10.4); Platelet Count Result 173 k/mm3 (150-375); Red Blood Count 3.95 M/mm3 (4.2-5.4); Red Cell Distribution Width 14.8 % (11.5-14.5); White Blood Count 6.9 K/mm3 (4.5-10.0)
[2021-10-22 10:19] LABS: Alanine Aminotransferase 25 U/L (4-35); Albumin Level 3.2 g/dL (3.5-5.1); Alkaline Phosphatase 72 U/L (38-126); Anion Gap 7 mmol/L (8-16); Aspartate Amino Transferase 29 U/L (14-36); Bilirubin,Total 0.8 mg/dL (0.2-1.3); Blood Urea Nitrogen 9 mg/dL (7-17); Calcium 8.7 mg/dL (8.4-10.2); Carbon Dioxide 26 mmol/L (22-30); Chloride 102 mmol/L (98-107); Estimated CRCL calculation 91 ml/min; Estimated Glomerular Filt Rate > 60; Glucose 124 mg/dL (65-110); Potassium 3.4 mmol/L (3.4-5.0); Sodium 135 mmol/L (137-145)
[2021-10-22] MEDS: ACETAMINOPHEN 500 MG TABLET 1000 MG PO (11:56)
[2021-10-22] MEDS: guaiFENesin 12 HR 600 MG TABCR PO ×2 (13:58→20:32)
--- NOTE | 2021-10-22 15:54 | PCRCNOTE ---
Window of time for administration has passed. See next scheduled administration.
[2021-10-22 21:09] LABS: Glucose Point of Care 86 mg/dl (65-105)
--- NOTE | 2021-10-22 22:13 | PCRCNOTE ---
past scheduled time window, see next available administration.
[2021-10-23] VITALS (17 sets, daily range): BP systolic 139–157; BP diastolic 67–89; PULSE 79–95; RESP 16–22; TEMP 35.8–36.6; O2SAT 94–98
[2021-10-23] MEDS: IPRATROPIUM BR 0.02% INH SOLN 0.5 MG/2.5 ML VIAL INHALATION ×6 (00:38→22:07)
[2021-10-23] MEDS: ALBUTEROL SULFATE NEB 2.5 MG/0.5 ML INH INHALATION ×6 (00:38→22:06)
[2021-10-23] MEDS: traMADol HCL (*CRX) 50 MG TABLET PO (05:25)
[2021-10-23] MEDS: LEVOTHYROXINE SODIUM 88 MCG TABLET PO (06:12)
[2021-10-23] MEDS: LORazepam (*CRX) 0.5 MG TABLET PO (06:30)
[2021-10-23 06:47] LABS: Alanine Aminotransferase 30 U/L (4-35); Albumin Level 3.3 g/dL (3.5-5.1); Alkaline Phosphatase 76 U/L (38-126); Anion Gap 3 mmol/L (8-16); Aspartate Amino Transferase 26 U/L (14-36); Bilirubin,Total 0.7 mg/dL (0.2-1.3); Blood Urea Nitrogen 9 mg/dL (7-17); CRP 21.8 mg/dL (<1.0); Calcium 8.9 mg/dL (8.4-10.2); Carbon Dioxide 27 mmol/L (22-30); Chloride 104 mmol/L (98-107); Estimated CRCL calculation 91 ml/min; Estimated Glomerular Filt Rate > 60; Glucose 91 mg/dL (65-110); Potassium 3.3 mmol/L (3.4-5.0); Sodium 134 mmol/L (137-145)
[2021-10-23 07:22] LABS: Basophils Percent Auto 0.7 % (0.2-1.2); Eosinophils Absolute Auto 0.1 K/mm3 (0-0.3); Eosinophils Percent Auto 2.3 % (0-4.4); Hematocrit 33.7 % (37.0-47.0); Hemoglobin 10.5 g/dL (12.0-15.0); Immature Granulocyte Absolute 0.14 K/mm3 (0.00-0.031); Immature Granulocyte Percent A 2.5 % (0-0.5); Lymphocytes Absolute Auto 1.18 K/mm3 (0.9-3.2); Lymphocytes Percent Auto 20.7 % (18.3-44.2); Mean Corpuscular HGB Conc 31.2 g/dl (32-36); Mean Corpuscular Hemoglobin 28.2 pg (26-34); Mean Corpuscular Volume 90.3 fl (80-100); Mean Platelet Volume 11.1 fl (7.4-10.4); Neutrophils Absolute Auto 3.3 K/mm3 (1.3-6.7); Neutrophils Percent Auto 56.8 % (45.5-73.1); Platelet Count Result 180 k/mm3 (150-375); Red Blood Count 3.73 M/mm3 (4.2-5.4); Red Cell Distribution Width 14.9 % (11.5-14.5); White Blood Count 5.7 K/mm3 (4.5-10.0)
--- NOTE | 2021-10-23 07:50 | PM.IMPN ---
Progress Note: A&P Assessment and Plan (1) Pneumonia: Qualifiers: Laterality: right Lung location: unspecified part of lung Pneumonia type: due to unspecified organism Qualified Code(s): J18.9 - Pneumonia, unspecified organism Code(s): J18.9 - Pneumonia, unspecified organism Status: Acute Assessment and Plan: Symptoms and CT consistent with PNA, CT with worsening pneumonia 10/21/21 -repeat CXR today pending read -continue cefepime, azithromycin, and vancomycin - sputum culture growing Staph aureus, sensitive to vanc. PICC line in place -continue schedule breathing tx, Mucinex, and incentive spirometer with cornet -Will add steroids due to her significant wheezing today -immunosuppressed, hold immunosuppressive therapy but continue home prednisone -cp likely due to pna, no ekg findings 10/22 and seems pleuritic in nature. -continue o2 as needed for sats <90. She is usually only on o2 at home with activity. 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 (3) YOON (obstructive sleep apnea): Code(s): G47.33 - Obstructive sleep apnea (adult) (pediatric) Status: Acute (4) Asthma with exacerbation: Qualifiers: Asthma persistence: unspecified Asthma severity: unspecified severity Qualified Code(s): J45.901 - Unspecified asthma with (acute) exacerbation Code(s): J45.901 - Unspecified asthma with (acute) exacerbation Status: Acute Assessment and Plan: As above -IV steroids added (5) Diabetes: Qualifiers: Diabetes mellitus type: type 2 Code(s): E11.9 - Type 2 diabetes mellitus without complications Status: Acute Assessment and Plan: Last glucose 91 -may increase due to IV steroids -continue SSI (6) Hyperlipidemia: Code(s): E78.5 - Hyperlipidemia, unspecified Status: Acute Assessment and Plan: Chronic, continue home fenofibrate and pravastatin (7) Hypertension: Code(s): I10 - Essential (primary) hypertension Status: Acute Assessment and Plan: Last bp 139/67 -continue losartan and spironolactone with added parameters (8) Fever: Code(s): R50.9 - Fever, unspecified Status: Acute Assessment and Plan: no fever since 10/19 (9) Acute and chronic respiratory failure with hypoxia: Code(s): J96.21 - Acute and chronic respiratory failure with hypoxia Status: Acute Assessment and Plan: Typically not on o2 at rest at home but is on it with activity -continue o2 for sats <90 Subjective Date/time seen: 10/23/21 07:50 Interval history: Pt is a 56 y/o female here for PNA. Patient was seen today and states she didn't have a good morning. After her breathing treatment she started coughing a lot and felt wheezy. This worsened her anxiety but the medication has helped. She would like her to be here. She continues to have shortness of breath with dyspnea on exertion and at rest. She is unable to lay flat chronically and she has been sitting up. She continues to cough and wheeze. She also still has her right-sided stabbing chest pain when she coughs. She denies fevers or chills. She does not have regular bowel movements at home but has no complaints night area. She continues to have a decreased appetite. She would like me to call and update her . I spoke to him 10/23/21 at 750. Exam Narrative: General: Well developed well nourished patient in NAD HEENT: normocephalic Neck: supple Neuro: Alert and oriented x4 CV:RRR Resp:Wheezing and ronchi, worse in the right lung on exam. Unable to take de
[2021-10-23 08:12] LABS: Glucose Point of Care 82 mg/dl (65-105)
[2021-10-23] MEDS: FLUTICASONE/SALMETEROL 115-21 MCG INHALER 1 PUFF 2 PUFF INHALATION ×2 (08:53→22:07)
[2021-10-23] MEDS: LOSARTAN POTASSIUM 50 MG TABLET 100 MG PO (09:02)
[2021-10-23] MEDS: ENOXAPARIN 40 MG/0.4 ML SYRINGE SUB-Q ×2 (09:02→20:09)
[2021-10-23] MEDS: methylPREDNISolone SOD SUCC 40 MG VIAL IV PUSH ×2 (09:02→20:09)
[2021-10-23] MEDS: FLUTICASONE PROPIONATE 0.05% NA SPR 16 GM BTL (*BKC) 1 SPRAY NASAL (09:02)
[2021-10-23] MEDS: busPIRone HCL 5 MG TABLET PO ×2 (09:02→16:07)
[2021-10-23] MEDS: predniSONE 2.5 MG TABLET 7.5 MG PO (09:02)
[2021-10-23] MEDS: MONTELUKAST SODIUM 10 MG TABLET PO (09:02)
[2021-10-23] MEDS: POTASSIUM CHLORIDE 20 MEQ TABLET 40 MEQ PO (09:02)
[2021-10-23] MEDS: PANTOPRAZOLE 40 MG TABLET PO (09:03)
[2021-10-23] MEDS: SPIRONOLACTONE 50 MG TABLET PO (09:03)
[2021-10-23] MEDS: guaiFENesin 12 HR 600 MG TABCR PO ×2 (09:03→20:09)
[2021-10-23] MEDS: LORATADINE 10 MG TABLET PO (09:03)
[2021-10-23] MEDS: FOLIC ACID 1 MG TABLET 3 MG PO (09:03)
[2021-10-23] MEDS: PRAVASTATIN SODIUM 20 MG TABLET PO (09:03)
[2021-10-23] MEDS: ACETAMINOPHEN 500 MG TABLET 1000 MG PO (09:19)
[2021-10-23 11:53] LABS: Glucose Point of Care 123 mg/dl (65-105)
[2021-10-23] MEDS: FUROSEMIDE INJ 40 MG/4 ML VIAL 20 MG IV PUSH (12:04)
[2021-10-23 12:20] LABS: pH ABG 7.435 (7.350-7.450)
[2021-10-23 12:21] LABS: Alveolar/Arterial O2 Gradient 16.3 mmHg; Base Excess ABG 3.7 mEq/l (+/-2.0); HCO3 ABG 28.4 mEq/l (22.0-26.0); Oxygen Content ABG 16.3 %vol (16.0-22.0); Oxygen Saturation ABG 93.8 % (95.0-100.0); PCO2 ABG 43.2 mmHg (35.0-45.0); PO2 ABG 66.8 mmHg (80.0-100.0); Total Hemoglobin 12.6 g/dL (12.0-18.0)
[2021-10-23 12:22] LABS: Carboxyhemoglobin 0.6 % THb (0-2.0); Device NASAL CANNULA; Fractional Inspired Oxygen 28 %; Methemoglobin ABG 0.3 %THb (0-1.5); Modified Allen's Test Pass; Oxyhemoglobin 91.8 % THb (90.0-100.0); Reduced Hemoglobin 2.4 %THb (0-5.0); Site Drawn RIGHT RADIAL
[2021-10-23 12:27] LABS: NT Pro B Type Natriuretic Pept 194 pg/mL (5-100)
--- NOTE | 2021-10-23 13:39 | PCRCNOTE ---
Window of time for administration has passed. See next scheduled administration.
[2021-10-23 16:16] LABS: Glucose Point of Care 156 mg/dl (65-105)
[2021-10-23 20:59] LABS: Glucose Point of Care 132 mg/dl (65-105)
[2021-10-23] MEDS: DORNASE ALFA INH SOLN 1 MG/ML 2.5 ML AMP 2.5 MG INHALATION (22:07)
[2021-10-24] VITALS (14 sets, daily range): BP systolic 120–168; BP diastolic 69–82; PULSE 82–100; RESP 18–22; TEMP 36–36.7; O2SAT 93–95
[2021-10-24] MEDS: FLUTICASONE/SALMETEROL 115-21 MCG INHALER 1 PUFF 2 PUFF INHALATION ×2 (01:05→09:53)
[2021-10-24] MEDS: ALBUTEROL SULFATE NEB 2.5 MG/0.5 ML INH INHALATION ×4 (02:25→21:00)
[2021-10-24] MEDS: IPRATROPIUM BR 0.02% INH SOLN 0.5 MG/2.5 ML VIAL INHALATION ×4 (02:25→21:00)
[2021-10-24] MEDS: LEVOTHYROXINE SODIUM 88 MCG TABLET PO (04:42)
[2021-10-24] MEDS: traMADol HCL (*CRX) 50 MG TABLET PO ×2 (04:42→06:43)
[2021-10-24 07:05] LABS: Legionella pneumophila Ag Ur Not Detected (Not Detected)
[2021-10-24 07:57] LABS: Glucose Point of Care 114 mg/dl (65-105)
[2021-10-24] MEDS: FLUTICASONE PROPIONATE 0.05% NA SPR 16 GM BTL (*BKC) 1 SPRAY NASAL (08:23)
[2021-10-24] MEDS: LOSARTAN POTASSIUM 50 MG TABLET 100 MG PO (08:23)
[2021-10-24] MEDS: ENOXAPARIN 40 MG/0.4 ML SYRINGE SUB-Q ×2 (08:23→20:32)
[2021-10-24] MEDS: methylPREDNISolone SOD SUCC 40 MG VIAL IV PUSH ×2 (08:23→20:32)
[2021-10-24] MEDS: SPIRONOLACTONE 50 MG TABLET PO (08:23)
[2021-10-24] MEDS: FOLIC ACID 1 MG TABLET 3 MG PO (08:23)
[2021-10-24] MEDS: PRAVASTATIN SODIUM 20 MG TABLET PO (08:24)
[2021-10-24] MEDS: guaiFENesin 12 HR 600 MG TABCR PO ×2 (08:24→20:32)
[2021-10-24] MEDS: busPIRone HCL 5 MG TABLET PO ×2 (08:24→16:14)
[2021-10-24] MEDS: MONTELUKAST SODIUM 10 MG TABLET PO (08:24)
[2021-10-24] MEDS: DORNASE ALFA INH SOLN 1 MG/ML 2.5 ML AMP 2.5 MG INHALATION (10:11)
[2021-10-24 10:39] LABS: Hematocrit 36.7 % (37.0-47.0); Hemoglobin 11.6 g/dL (12.0-15.0); Mean Corpuscular HGB Conc 31.6 g/dl (32-36); Mean Corpuscular Hemoglobin 28.1 pg (26-34); Mean Corpuscular Volume 88.9 fl (80-100); Mean Platelet Volume 10.5 fl (7.4-10.4); Platelet Count Result 231 k/mm3 (150-375); Red Blood Count 4.13 M/mm3 (4.2-5.4); Red Cell Distribution Width 14.6 % (11.5-14.5); White Blood Count 7.1 K/mm3 (4.5-10.0)
[2021-10-24 11:08] LABS: Anion Gap 4 mmol/L (8-16); Blood Urea Nitrogen 14 mg/dL (7-17); CRP 16.5 mg/dL (<1.0); Calcium 9.3 mg/dL (8.4-10.2); Carbon Dioxide 29 mmol/L (22-30); Chloride 101 mmol/L (98-107); Estimated CRCL calculation 82 ml/min; Estimated Glomerular Filt Rate > 60; Glucose 167 mg/dL (65-110); Potassium 3.6 mmol/L (3.4-5.0); Sodium 134 mmol/L (137-145)
[2021-10-24 11:14] LABS: Vancomycin Trough 14.3 ug/mL (10.0-20.0)
[2021-10-24 11:25] LABS: Glucose Point of Care 145 mg/dl (65-105)
--- NOTE | 2021-10-24 11:42 | PM.IMPN ---
Progress Note: A&P Assessment and Plan (1) Pneumonia: Qualifiers: Laterality: right Lung location: unspecified part of lung Pneumonia type: due to unspecified organism Qualified Code(s): J18.9 - Pneumonia, unspecified organism Code(s): J18.9 - Pneumonia, unspecified organism Status: Acute Assessment and Plan: Symptoms and CT consistent with PNA, CT with worsening pneumonia 10/21/21 -Much improved today after addition of steroids, lasix and pulmezyme. -continue cefepime, azithromycin, and vancomycin - sputum culture growing Staph aureus, sensitive to vanc. PICC line in place -continue schedule breathing tx, Mucinex, and incentive spirometer with cornet -immunosuppressed, hold immunosuppressive therapy -cp likely due to pna, no ekg findings 10/22 and seems pleuritic in nature. -continue o2 as needed for sats <90. She is usually only on o2 at home with activity. 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 (3) YOON (obstructive sleep apnea): Code(s): G47.33 - Obstructive sleep apnea (adult) (pediatric) Status: Acute (4) Asthma with exacerbation: Qualifiers: Asthma persistence: unspecified Asthma severity: unspecified severity Qualified Code(s): J45.901 - Unspecified asthma with (acute) exacerbation Code(s): J45.901 - Unspecified asthma with (acute) exacerbation Status: Acute Assessment and Plan: As above -IV steroids added 10/23 (5) Diabetes: Qualifiers: Diabetes mellitus type: type 2 Code(s): E11.9 - Type 2 diabetes mellitus without complications Status: Acute Assessment and Plan: Last glucose 145 -may increase due to IV steroids -continue SSI (6) Hyperlipidemia: Code(s): E78.5 - Hyperlipidemia, unspecified Status: Acute Assessment and Plan: Chronic, continue home fenofibrate and pravastatin (7) Hypertension: Code(s): I10 - Essential (primary) hypertension Status: Acute Assessment and Plan: Last bp 131/82 -continue losartan and spironolactone with added parameters (8) Fever: Code(s): R50.9 - Fever, unspecified Status: Acute Assessment and Plan: no fever since 10/19 (9) Acute and chronic respiratory failure with hypoxia: Code(s): J96.21 - Acute and chronic respiratory failure with hypoxia Status: Acute Assessment and Plan: Typically not on o2 at rest at home but is on it with activity -continue o2 for sats <90 Subjective Date/time seen: 10/24/21 11:42 Interval history: Pt is a 56 y/o female here for PNA. Patient was seen today and is doing much better. She is able to breath easier and has no SOB at rest currently. She does still feel short of breath with movement and coughing. She continues to have pain to the right chest with coughing that is a stabbing like pain. She is able to cough up more sputum now and says it's not as bad looking as it had been. She has had some soft stools but she says that is normal for her. Her appetite is low still. She thinks the lasix helped yesterday. Exam Narrative: General: Well developed well nourished patient in NAD HEENT: normocephalic Neck: supple Neuro: Alert and oriented x4 CV:RRR Resp: Lung exam much improved today. Slight wheezing to the right lung with rhonchi. Able to take deeper breaths. Non labored breathing and able to hold a full converstaion with a normal respiratory rate. Abd: Soft, non distended. No pain to palpation. Positive bowel sounds Extremities: No swelling, erythema, or pain to palpation. Objective Data Vital S
[2021-10-24 11:43] LABS: Thyroid Stimulating Hormone Reflex 0.395 uIU/mL (0.465-4.68)
[2021-10-24 12:52] LABS: Free T4 Free Thyroxine Reflex 1.67 ng/dL (0.78-2.19)
[2021-10-24] MEDS: FUROSEMIDE INJ 40 MG/4 ML VIAL 20 MG IV PUSH (13:02)
[2021-10-24 14:02] LABS: Total Triiodothyronine (T3) 0.73 NG/ML (0.97-1.69)
[2021-10-24 16:14] LABS: Glucose Point of Care 168 mg/dl (65-105)
[2021-10-24 20:43] LABS: Glucose Point of Care 169 mg/dl (65-105)
[2021-10-24 22:30] LABS: Pneumococcal Antigen Urine Not Detected (Not Detected)
[2021-10-25] VITALS (15 sets, daily range): BP systolic 124–151; BP diastolic 64–74; PULSE 69–88; RESP 18–20; TEMP 36.6–37.8; O2SAT 94–96
[2021-10-25] MEDS: ALBUTEROL SULFATE NEB 2.5 MG/0.5 ML INH INHALATION ×4 (00:50→21:18)
[2021-10-25] MEDS: LEVOTHYROXINE SODIUM 88 MCG TABLET PO (04:35)
[2021-10-25] MEDS: traMADol HCL (*CRX) 50 MG TABLET PO (04:35)
[2021-10-25 04:46] LABS: Hematocrit 27.7 % (37.0-47.0); Hemoglobin 8.8 g/dL (12.0-15.0); Mean Corpuscular HGB Conc 31.8 g/dl (32-36); Mean Corpuscular Volume 88.2 fl (80-100); Mean Platelet Volume 10.8 fl (7.4-10.4); Platelet Count Result 202 k/mm3 (150-375); Red Blood Count 3.14 M/mm3 (4.2-5.4); Red Cell Distribution Width 14.6 % (11.5-14.5); White Blood Count 5.1 K/mm3 (4.5-10.0)
[2021-10-25 05:04] LABS: Anion Gap 1 mmol/L (8-16); Blood Urea Nitrogen 18 mg/dL (7-17); CRP 8.9 mg/dL (<1.0); Calcium 9.2 mg/dL (8.4-10.2); Carbon Dioxide 31 mmol/L (22-30); Chloride 98 mmol/L (98-107); Estimated CRCL calculation 91 ml/min; Estimated Glomerular Filt Rate > 60; Glucose 204 mg/dL (65-110); Sodium 130 mmol/L (137-145)
[2021-10-25 08:40] LABS: Glucose Point of Care 119 mg/dl (65-105)
[2021-10-25] MEDS: FLUTICASONE/SALMETEROL 115-21 MCG INHALER 1 PUFF 2 PUFF INHALATION ×2 (09:20→21:18)
[2021-10-25] MEDS: DORNASE ALFA INH SOLN 1 MG/ML 2.5 ML AMP 2.5 MG INHALATION ×2 (09:20→21:19)
[2021-10-25] MEDS: IPRATROPIUM BR 0.02% INH SOLN 0.5 MG/2.5 ML VIAL INHALATION ×3 (09:20→21:18)
[2021-10-25] MEDS: busPIRone HCL 5 MG TABLET PO ×2 (09:39→17:58)
[2021-10-25] MEDS: MONTELUKAST SODIUM 10 MG TABLET PO (09:39)
[2021-10-25] MEDS: ENOXAPARIN 40 MG/0.4 ML SYRINGE SUB-Q ×2 (09:39→20:12)
[2021-10-25] MEDS: guaiFENesin 12 HR 600 MG TABCR PO ×2 (09:39→20:13)
[2021-10-25] MEDS: PRAVASTATIN SODIUM 20 MG TABLET PO (09:40)
[2021-10-25] MEDS: methylPREDNISolone SOD SUCC 40 MG VIAL IV PUSH (09:40)
[2021-10-25] MEDS: FOLIC ACID 1 MG TABLET 3 MG PO (09:40)
[2021-10-25] MEDS: LOSARTAN POTASSIUM 50 MG TABLET 100 MG PO (09:40)
[2021-10-25] MEDS: PANTOPRAZOLE 40 MG TABLET PO (09:40)
[2021-10-25] MEDS: SPIRONOLACTONE 50 MG TABLET PO (09:40)
[2021-10-25] MEDS: LORATADINE 10 MG TABLET PO (09:41)
[2021-10-25] MEDS: FLUTICASONE PROPIONATE 0.05% NA SPR 16 GM BTL (*BKC) 1 SPRAY NASAL (09:41)
--- NOTE | 2021-10-25 09:53 | PM.PNPUL ---
Progress Note: A&P Assessment and Plan (1) Pneumonia: Qualifiers: Pneumonia type: due to unspecified organism Laterality: right Lung location: lower lobe of lung Qualified Code(s): J18.9 - Pneumonia, unspecified organism Code(s): J18.9 - Pneumonia, unspecified organism Status: Acute Assessment and Plan: 56-year-old female morbidly obese with history of asthma, obstructive sleep apnea, IgG immunodeficiency, rheumatoid arthritis, with community-acquired pneumonia which has responded to antibiotics with fever resolution. She continues to have right pleuritic chest pain but less than before. she was treated with steroids for bronchospasm over the weekend. Chest CT showed some clearing of infiltrates and no clear-cut evidence of new pleural effusion. Plan is as follows: Continue with current antibiotic regimen, decrease IV steroids to Solu-Medrol 40 mg daily. Out of bed to chair. Continue with incentive spirometry. Get good two view chest x-ray in a.m. to exclude right pleural effusion. Continue with DVT prophylaxis. Continue with nebulized bronchodilators. (2) Pleuritic chest pain: Code(s): R07.81 - Pleurodynia Status: Resolved (3) Rheumatoid arthritis: Qualifiers: Rheumatoid arthritis location: unspecified site Rheumatoid factor presence: unspecified presence Qualified Code(s): M06.9 - Rheumatoid arthritis, unspecified Code(s): M06.9 - Rheumatoid arthritis, unspecified Status: Chronic (4) YOON (obstructive sleep apnea): Code(s): G47.33 - Obstructive sleep apnea (adult) (pediatric) Status: Acute (5) Obesity: Qualifiers: Obesity type: due to excess calories Obesity classification: adult class 3 (BMI >= 40) Serious obesity comorbidity presence: with serious comorbidity Body mass index: BMI 50.0-59.9 Qualified Code(s): E66.01 - Morbid (severe) obesity due to excess calories; Z68.43 - Body mass index [BMI] 50.0-59.9, adult Code(s): E66.9 - Obesity, unspecified Status: Acute (6) Asthma: Qualifiers: Asthma severity: unspecified severity Asthma persistence: unspecified Asthma complication type: unspecified Qualified Code(s): J45.909 - Unspecified asthma, uncomplicated Code(s): J45.909 - Unspecified asthma, uncomplicated Status: Chronic Subjective Date/time seen: 10/25/21 09:53 Patient feels better. She still has right-sided chest pain but less than before. Cough is also better today. She is not febrile. She was started on IV steroids over the weekend for bronchospasm. Still on antibiotics, WBC within normal range. Chest x-ray today showed possible mild improvement of pneumonia. Review of Systems Review of Systems: All systems reviewed & are unremarkable except as noted in HPI and below Exam Narrative: GENERAL APPEARANCE: Well developed, well nourished, morbidly obese, alert and cooperative, looking anxious and appears to be in in mild respiratory distress while breathing oxygen via nasal cannula SKIN: Inspection of the skin reveals no rashes, ulcerations or petechiae. HEENT: Sclerae anicteric and conjunctivae pink and moist. Extraocular movements were intact and pupils were equal, round. NECK: Supple. There was no thyroid enlargement, and no tenderness, or masses were felt. LUNGS: few rhonchi anteriorly, otherwise clear lungs CARDIAC: There was a regular rate and rhythm without any murmurs, gallops, rubs. ABDOMEN: Soft and nontender with normal bowel sounds. There was no organomegaly. LYMPH NODES: No lymphadenopathy was appreciated in the neck. EXTREMITIES: No cyanosis, clubbing or edema. NEUROLOGIC: Alert and oriented x 3. Normal affect. Objective Data Vital Signs Vital Signs: Vital Signs - 24 hr 10/24/21 09:55 10/24/21 14:00 10/24/21 14:23 Temperature 36.6 C Pulse Rate 89 96 86 Respiratory Rate 18 21 H 18 Blood Pressure 168/81 H Pulse Oximetry 94 93
[2021-10-25 11:50] LABS: Glucose Point of Care 109 mg/dl (65-105)
[2021-10-25 13:07] LABS: Hematocrit 37.6 % (37.0-47.0); Hemoglobin 11.8 g/dL (12.0-15.0)
--- NOTE | 2021-10-25 13:20 | PM.IMPN ---
Progress Note: A&P Assessment and Plan (1) Pneumonia: Qualifiers: Laterality: right Lung location: unspecified part of lung Pneumonia type: due to unspecified organism Qualified Code(s): J18.9 - Pneumonia, unspecified organism Code(s): J18.9 - Pneumonia, unspecified organism Status: Acute Assessment and Plan: Symptoms and CT consistent with PNA, CT with worsening pneumonia 10/21/21 -Much improved today after addition of steroids, lasix and pulmezyme. -continue cefepime, azithromycin, and vancomycin - sputum culture growing Staph aureus, sensitive to vanc. PICC line in place -continue schedule breathing tx, Mucinex, and incentive spirometer with cornet -immunosuppressed, hold immunosuppressive therapy -cp likely due to pna, no ekg findings 10/22 and seems pleuritic in nature. -continue o2 as needed for sats <90. She is usually only on o2 at home with activity. 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 (3) YOON (obstructive sleep apnea): Code(s): G47.33 - Obstructive sleep apnea (adult) (pediatric) Status: Acute (4) Asthma with exacerbation: Qualifiers: Asthma persistence: unspecified Asthma severity: unspecified severity Qualified Code(s): J45.901 - Unspecified asthma with (acute) exacerbation Code(s): J45.901 - Unspecified asthma with (acute) exacerbation Status: Acute Assessment and Plan: As above -IV steroids added 10/23 (5) Diabetes: Qualifiers: Diabetes mellitus type: type 2 Code(s): E11.9 - Type 2 diabetes mellitus without complications Status: Acute Assessment and Plan: Last glucose 109 -may increase due to IV steroids -continue SSI (6) Hyperlipidemia: Code(s): E78.5 - Hyperlipidemia, unspecified Status: Acute Assessment and Plan: Chronic, continue home fenofibrate and pravastatin (7) Hypertension: Code(s): I10 - Essential (primary) hypertension Status: Acute Assessment and Plan: Last bp 128/71 -continue losartan and spironolactone with added parameters (8) Fever: Code(s): R50.9 - Fever, unspecified Status: Acute Assessment and Plan: no fever since 10/19 (9) Acute and chronic respiratory failure with hypoxia: Code(s): J96.21 - Acute and chronic respiratory failure with hypoxia Status: Acute Assessment and Plan: Typically not on o2 at rest at home but is on it with activity -continue o2 for sats <90 Subjective Date/time seen: 10/25/21 13:20 Interval history: Pt is a 56 y/o female here for PNA. Patient was seen today and is doing much better. She says she is able to breathe easier. She does not have any shortness of breath at rest but does feel short of breath at times and has stabbing chest pain when she coughs. She is eating and drinking okay other than not liking the food. She denies nausea, vomiting, diarrhea or constipation. Exam Narrative: General: Well developed well nourished patient in NAD HEENT: normocephalic Neck: supple Neuro: Alert and oriented x4 CV:RRR Resp: Slight wheezing and rhonchi bilaterally but worsen all right lung. Able to take deeper breaths. Non labored breathing and able to hold a full conversation with a normal respiratory rate. Abd: Soft, non distended. No pain to palpation. Positive bowel sounds Extremities: No swelling, erythema, or pain to palpation. Objective Data Vital Signs Vital Signs: Vital Signs - 24 hr 10/24/21 14:00 10/24/21 14:23 10/24/21 14:31 Temperature 97.9 F Pulse Rate 96 86 85 Respiratory Rate 21
[2021-10-25 13:24] LABS: Vancomycin Trough 15.4 ug/mL (10.0-20.0)
[2021-10-25 13:53] LABS: Immunoglobulin G 368 mg/dL (700-1600)
[2021-10-25] MEDS: ACETAMINOPHEN 500 MG TABLET 1000 MG PO (14:18)
--- NOTE | 2021-10-25 15:28 | PCRCNOTE ---
Window of time for administration has passed. See next scheduled administration.
[2021-10-25 17:27] LABS: Glucose Point of Care 138 mg/dl (65-105)
[2021-10-25 20:45] LABS: Glucose Point of Care 188 mg/dl (65-105)
[2021-10-26] VITALS (14 sets, daily range): BP systolic 114–148; BP diastolic 58–74; PULSE 83–93; RESP 14–20; TEMP 36.9–37.3; O2SAT 94–97
[2021-10-26 00:14] LABS: Pneumococcal Antigen Urine Not Detected (Not Detected)
[2021-10-26] MEDS: ALBUTEROL SULFATE NEB 2.5 MG/0.5 ML INH INHALATION ×5 (00:28→20:56)
[2021-10-26] MEDS: IPRATROPIUM BR 0.02% INH SOLN 0.5 MG/2.5 ML VIAL INHALATION ×5 (00:28→20:56)
[2021-10-26] MEDS: LORazepam (*CRX) 0.5 MG TABLET PO (04:49)
[2021-10-26] MEDS: ACETAMINOPHEN 500 MG TABLET 1000 MG PO ×2 (04:49→20:45)
[2021-10-26] MEDS: LEVOTHYROXINE SODIUM 88 MCG TABLET PO (06:15)
[2021-10-26 06:34] LABS: Mean Corpuscular HGB Conc 31.4 g/dl (32-36); Mean Corpuscular Hemoglobin 27.9 pg (26-34); Mean Corpuscular Volume 88.8 fl (80-100); Mean Platelet Volume 10.5 fl (7.4-10.4); Platelet Count Result 257 k/mm3 (150-375); Red Blood Count 3.94 M/mm3 (4.2-5.4); Red Cell Distribution Width 14.6 % (11.5-14.5); White Blood Count 8.2 K/mm3 (4.5-10.0)
[2021-10-26 06:52] LABS: Anion Gap -1 mmol/L (8-16); Blood Urea Nitrogen 19 mg/dL (7-17); CRP 3.1 mg/dL (<1.0); Carbon Dioxide 33 mmol/L (22-30); Chloride 100 mmol/L (98-107); Estimated CRCL calculation 82 ml/min; Estimated Glomerular Filt Rate > 60; Glucose 139 mg/dL (65-110); Potassium 3.6 mmol/L (3.4-5.0); Sodium 132 mmol/L (137-145)
[2021-10-26] MEDS: FLUTICASONE PROPIONATE 0.05% NA SPR 16 GM BTL (*BKC) 1 SPRAY NASAL (08:03)
[2021-10-26] MEDS: SPIRONOLACTONE 50 MG TABLET PO (08:03)
[2021-10-26] MEDS: PANTOPRAZOLE 40 MG TABLET PO (08:03)
[2021-10-26] MEDS: guaiFENesin 12 HR 600 MG TABCR PO ×2 (08:03→20:45)
[2021-10-26] MEDS: LOSARTAN POTASSIUM 50 MG TABLET 100 MG PO (08:03)
[2021-10-26] MEDS: ENOXAPARIN 40 MG/0.4 ML SYRINGE SUB-Q ×2 (08:03→20:45)
[2021-10-26] MEDS: methylPREDNISolone SOD SUCC 40 MG VIAL IV PUSH (08:03)
[2021-10-26] MEDS: LORATADINE 10 MG TABLET PO (08:04)
[2021-10-26] MEDS: MONTELUKAST SODIUM 10 MG TABLET PO (08:04)
[2021-10-26] MEDS: PRAVASTATIN SODIUM 20 MG TABLET PO (08:04)
[2021-10-26] MEDS: busPIRone HCL 5 MG TABLET PO ×2 (08:04→17:38)
[2021-10-26] MEDS: FOLIC ACID 1 MG TABLET 3 MG PO (08:04)
[2021-10-26 08:20] LABS: Glucose Point of Care 106 mg/dl (65-105)
--- NOTE | 2021-10-26 09:53 | PM.PNPUL ---
Progress Note: A&P Assessment and Plan (1) Pneumonia: Qualifiers: Pneumonia type: due to unspecified organism Laterality: right Lung location: lower lobe of lung Qualified Code(s): J18.9 - Pneumonia, unspecified organism Code(s): J18.9 - Pneumonia, unspecified organism Status: Acute Assessment and Plan: 56-year-old female morbidly obese with history of asthma, obstructive sleep apnea, IgG immunodeficiency, rheumatoid arthritis, with community-acquired pneumonia related to Staph aureus which has responded to antibiotics with fever resolution. She continues to have right pleuritic chest pain but less than before. she was treated with steroids for bronchospasm over the weekend. Today's two view chest x-ray showed better aeration to right lung compared to the chest x-ray on 10/21, no significant pleural effusions; still pulmonary infiltrates as before. Plan is as follows: Continue with current antibiotic regimen. Out of bed to chair. I discontinued dornase and switched her to nebulized Mucomyst. Continue with incentive spirometry. (2) Pleuritic chest pain: Code(s): R07.81 - Pleurodynia Status: Resolved (3) Rheumatoid arthritis: Qualifiers: Rheumatoid arthritis location: unspecified site Rheumatoid factor presence: unspecified presence Qualified Code(s): M06.9 - Rheumatoid arthritis, unspecified Code(s): M06.9 - Rheumatoid arthritis, unspecified Status: Chronic (4) YOON (obstructive sleep apnea): Code(s): G47.33 - Obstructive sleep apnea (adult) (pediatric) Status: Acute (5) Obesity: Qualifiers: Obesity type: due to excess calories Obesity classification: adult class 3 (BMI >= 40) Serious obesity comorbidity presence: with serious comorbidity Body mass index: BMI 50.0-59.9 Qualified Code(s): E66.01 - Morbid (severe) obesity due to excess calories; Z68.43 - Body mass index [BMI] 50.0-59.9, adult Code(s): E66.9 - Obesity, unspecified Status: Acute (6) Asthma: Qualifiers: Asthma severity: unspecified severity Asthma persistence: unspecified Asthma complication type: unspecified Qualified Code(s): J45.909 - Unspecified asthma, uncomplicated Code(s): J45.909 - Unspecified asthma, uncomplicated Status: Chronic Subjective Date/time seen: 10/26/21 09:53 Patient feels better. Continues to have mild cough, unable to clear bronchial secretions, also mild right-sided pleuritic chest pain. Overall feels better. Has been out of bed to chair, and also walking to bathroom. Afebrile, no wheezing Review of Systems Review of Systems: All systems reviewed & are unremarkable except as noted in HPI and below Exam Narrative: GENERAL APPEARANCE: Well developed, well nourished, morbidly obese, alert and cooperative, looking anxious and appears to be in in mild respiratory distress while breathing oxygen via nasal cannula SKIN: Inspection of the skin reveals no rashes, ulcerations or petechiae. HEENT: Sclerae anicteric and conjunctivae pink and moist. Extraocular movements were intact and pupils were equal, round. NECK: Supple. There was no thyroid enlargement, and no tenderness, or masses were felt. LUNGS: few rhonchi anteriorly, otherwise clear lungs CARDIAC: There was a regular rate and rhythm without any murmurs, gallops, rubs. ABDOMEN: Soft and nontender with normal bowel sounds. There was no organomegaly. LYMPH NODES: No lymphadenopathy was appreciated in the neck. EXTREMITIES: No cyanosis, clubbing or edema. NEUROLOGIC: Alert and oriented x 3. Normal affect. Objective Data Vital Signs Vital Signs: Vital Signs - 24 hr 10/25/21 14:00 10/25/21 14:18 10/25/21 15:15 Temperature 37.8 C H 37.8 C H 36.8 C Pulse Rate 86 Respiratory Rate 20 Blood Pressure 151/74 H Pulse Oximetry 94 10/25/21 16:24 10/25/21 16:35 10/25/21 20:00 Temperature Pulse Rate 69 80 Respiratory
--- NOTE | 2021-10-26 12:03 | PCNWS ---
Weekly nutritional screen. Pt screened in for 7 day length of stay. Patient is tolerating current diet with adequate intake. No weight loss reported. No nutritional needs at this time.
[2021-10-26 12:07] LABS: Glucose Point of Care 146 mg/dl (65-105)
--- NOTE | 2021-10-26 13:03 | PM.IMPN ---
Progress Note: A&P Assessment and Plan (1) Pneumonia: Qualifiers: Laterality: right Lung location: unspecified part of lung Pneumonia type: due to unspecified organism Qualified Code(s): J18.9 - Pneumonia, unspecified organism Code(s): J18.9 - Pneumonia, unspecified organism Status: Acute Assessment and Plan: Symptoms and CT consistent with PNA, CXR showing improving PNA. -Much improved today after addition of steroids, lasix and pulmezyme.No further lasix needed -continue cefepime, azithromycin, and vancomycin - sputum culture growing Staph aureus, sensitive to vanc. PICC line in place -continue schedule breathing tx, Mucinex, and incentive spirometer with cornet -immunosuppressed, hold immunosuppressive therapy -cp likely due to pna, no ekg findings 10/22 and seems pleuritic in nature. -continue o2 as needed for sats <90. She is usually only on o2 at home with activity. 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 (3) YOON (obstructive sleep apnea): Code(s): G47.33 - Obstructive sleep apnea (adult) (pediatric) Status: Acute (4) Asthma with exacerbation: Qualifiers: Asthma persistence: unspecified Asthma severity: unspecified severity Qualified Code(s): J45.901 - Unspecified asthma with (acute) exacerbation Code(s): J45.901 - Unspecified asthma with (acute) exacerbation Status: Acute Assessment and Plan: As above -IV steroids added 10/23 (5) Diabetes: Qualifiers: Diabetes mellitus type: type 2 Code(s): E11.9 - Type 2 diabetes mellitus without complications Status: Acute Assessment and Plan: Last glucose 146 -continue SSI (6) Hyperlipidemia: Code(s): E78.5 - Hyperlipidemia, unspecified Status: Acute Assessment and Plan: Chronic, continue home fenofibrate and pravastatin (7) Hypertension: Code(s): I10 - Essential (primary) hypertension Status: Acute Assessment and Plan: Last bp 119/58 -continue losartan and spironolactone with added parameters (8) Fever: Code(s): R50.9 - Fever, unspecified Status: Acute Assessment and Plan: no fever since 10/19 (9) Acute and chronic respiratory failure with hypoxia: Code(s): J96.21 - Acute and chronic respiratory failure with hypoxia Status: Acute Assessment and Plan: Typically not on o2 at rest at home but is on it with activity -Order in to wean o2. I have asked both RN and RT to wean o2. Subjective Date/time seen: 10/26/21 13:03 Interval history: Pt is a 56 y/o female here for PNA. Patient was seen today and is doing about the same as yesterday She says she is able to breathe easier and can tell when the steroids are given because they seem to help a lot. She does not have any shortness of breath at rest but does feel short of breath at times and has stabbing chest pain when she coughs. She denies nausea, vomiting, diarrhea or constipation. Exam Narrative: General: Well developed well nourished patient in NAD HEENT: normocephalic Neck: supple Neuro: Alert and oriented x4 CV:RRR Resp: Wheezing and rhonchi bilaterally but worse in the right lung. Able to take deeper breaths. Non labored breathing and able to hold a full conversation with a normal respiratory rate. Abd: Soft, non distended. No pain to palpation. Positive bowel sounds Extremities: No swelling, erythema, or pain to palpation. Objective Data Vital Signs Vital Signs: Vital Signs - 24 hr 10/25/21 14:00 10/25/21 14:18 10/25/21 15:15 Temperature 100.0 F H 10
[2021-10-26 17:01] LABS: Glucose Point of Care 179 mg/dl (65-105)
[2021-10-26] MEDS: FLUTICASONE/SALMETEROL 115-21 MCG INHALER 1 PUFF 2 PUFF INHALATION (20:57)
[2021-10-26 22:09] LABS: Glucose Point of Care 156 mg/dl (65-105)
[2021-10-27] VITALS (17 sets, daily range): BP systolic 141–154; BP diastolic 67–70; PULSE 75–98; RESP 16–20; TEMP 36.3–37.2; O2SAT 93–97
[2021-10-27] MEDS: ALBUTEROL SULFATE NEB 2.5 MG/0.5 ML INH INHALATION ×6 (00:56→23:21)
[2021-10-27] MEDS: IPRATROPIUM BR 0.02% INH SOLN 0.5 MG/2.5 ML VIAL INHALATION ×6 (00:56→23:20)
--- NOTE | 2021-10-27 01:02 | PCRCNOTE ---
pt complaining of R sided rib pain on inspiration again tonight as previously stated on 10/26
[2021-10-27] MEDS: ACETAMINOPHEN 500 MG TABLET 1000 MG PO ×3 (02:30→21:08)
[2021-10-27] MEDS: LEVOTHYROXINE SODIUM 88 MCG TABLET PO (05:23)
[2021-10-27 05:33] LABS: Anion Gap 1 mmol/L (8-16); Blood Urea Nitrogen 16 mg/dL (7-17); CRP 1.8 mg/dL (<1.0); Calcium 8.7 mg/dL (8.4-10.2); Carbon Dioxide 31 mmol/L (22-30); Chloride 102 mmol/L (98-107); Estimated CRCL calculation 91 ml/min; Estimated Glomerular Filt Rate > 60; Glucose 99 mg/dL (65-110); Potassium 3.3 mmol/L (3.4-5.0); Sodium 134 mmol/L (137-145)
[2021-10-27 06:35] LABS: Vancomycin Trough 18.7 ug/mL (10.0-20.0)
--- NOTE | 2021-10-27 07:18 | P.PNIM_ITS ---
Progress Note: A&P Assessment and Plan (1) Pneumonia: Qualifiers: Laterality: right Lung location: unspecified part of lung Pneumonia type: due to unspecified organism Qualified Code(s): J18.9 - Pneumonia, unspecified organism Code(s): J18.9 - Pneumonia, unspecified organism Status: Acute Assessment and Plan: Symptoms and CT consistent with PNA, CXR showing improving PNA. -Much improved today after addition of steroids, lasix and Pulmozyme.No further lasix needed -continue cefepime, azithromycin, and vancomycin - sputum culture growing Staph aureus, sensitive to vanc. PICC line in place -continue schedule breathing tx, Mucinex, and incentive spirometer with cornet -immunosuppressed, hold immunosuppressive therapy -cp likely due to pna, no ekg findings 10/22 and seems pleuritic in nature. -continue o2 as needed for sats <90. She is usually only on o2 at home with activity. I have asked them to wean the oxygen at rest but she continues to be on oxygen. No reports of hypoxia. I have turned off the oxygen in the room and will recheck it with morning vitals to ensure her she does not require any oxygen. She only uses oxygen with activity at home -would recommend transitioning from IV steroids today to oral steroids tomorrow to see how she does. Her CRP is almost normal which is a big improvement and she has no further wheezing. I have placed the orders but will also see what pulmonology recommends. 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 (3) YOON (obstructive sleep apnea): Code(s): G47.33 - Obstructive sleep apnea (adult) (pediatric) Status: Acute Assessment and Plan: She does not want to use our CPAP because she does not like it. I told her she is welcome to bring her own in (4) Asthma with exacerbation: Qualifiers: Asthma persistence: unspecified Asthma severity: unspecified severity Qualified Code(s): J45.901 - Unspecified asthma with (acute) exacerbation Code(s): J45.901 - Unspecified asthma with (acute) exacerbation Status: Acute Assessment and Plan: As above -transition from IV steroids today to oral steroids tomorrow since her wheezing has improved (5) Diabetes: Qualifiers: Diabetes mellitus type: type 2 Code(s): E11.9 - Type 2 diabetes mellitus without complications Status: Acute Assessment and Plan: Last glucose 99 -will continue A.c. and HS Accu-Cheks as her A1c is 5.5 and her glucose has not required any sliding scale insulin while here. She is not on any hypoglycemics at this time. -Continue monitoring with daily labs (6) Hyperlipidemia: Code(s): E78.5 - Hyperlipidemia, unspecified Status: Acute Assessment and Plan: Chronic, continue home fenofibrate and pravastatin (7) Hypertension: Code(s): I10 - Essential (primary) hypertension Status: Acute Assessment and Plan: Last bp 141/70 -continue losartan and spironolactone (8) Fever: Code(s): R50.9 - Fever, unspecified Status: Acute Assessment and Plan: Fever reported on 10/25/2021 but she has been running lower since. Atelectasis? Doubt
[2021-10-27 08:22] LABS: Glucose Point of Care 89 mg/dl (65-105)
[2021-10-27] MEDS: ENOXAPARIN 40 MG/0.4 ML SYRINGE SUB-Q ×2 (09:35→20:58)
[2021-10-27] MEDS: FLUTICASONE PROPIONATE 0.05% NA SPR 16 GM BTL (*BKC) 1 SPRAY NASAL (09:37)
[2021-10-27] MEDS: POTASSIUM CHLORIDE 20 MEQ TABLET 40 MEQ PO (09:37)
[2021-10-27] MEDS: LOSARTAN POTASSIUM 50 MG TABLET 100 MG PO (09:38)
[2021-10-27] MEDS: busPIRone HCL 5 MG TABLET PO ×2 (09:38→17:36)
[2021-10-27] MEDS: guaiFENesin 12 HR 600 MG TABCR PO ×2 (09:39→20:58)
[2021-10-27] MEDS: FOLIC ACID 1 MG TABLET 3 MG PO (09:39)
[2021-10-27] MEDS: PRAVASTATIN SODIUM 20 MG TABLET PO (09:39)
[2021-10-27] MEDS: MONTELUKAST SODIUM 10 MG TABLET PO (09:39)
[2021-10-27] MEDS: methylPREDNISolone SOD SUCC 40 MG VIAL IV PUSH (09:40)
[2021-10-27] MEDS: PANTOPRAZOLE 40 MG TABLET PO (09:40)
[2021-10-27] MEDS: LORATADINE 10 MG TABLET PO (09:41)
[2021-10-27] MEDS: SPIRONOLACTONE 50 MG TABLET PO (09:41)
--- NOTE | 2021-10-27 11:34 | PCRCNOTE ---
Window of time for administration has passed. See next scheduled administration.
[2021-10-27] MEDS: BENZOCAINE/MENTHOL (*BKC) 18 EA LOZENGE 1 LOZENGE PO ×3 (11:43→21:01)
[2021-10-27 11:49] LABS: Mycoplasma IgM Antibody Titer 122 U/mL (<770)
--- NOTE | 2021-10-27 15:11 | PM.PNPUL ---
Progress Note: A&P Assessment and Plan (1) Pneumonia: Qualifiers: Pneumonia type: due to unspecified organism Laterality: right Lung location: lower lobe of lung Qualified Code(s): J18.9 - Pneumonia, unspecified organism Code(s): J18.9 - Pneumonia, unspecified organism Status: Acute Assessment and Plan: patient has a history of immunoglobulin deficiency and now with multifocal pneumonia and Staph aureus in her sputum. Blood cultures are negative. Patient is slowly improving with vancomycin, cefepime and azithromycin and will continue those antibiotics today. She is afebrile with a normal white blood cell count yesterday. Patient tells me that she still feels acutely ill but that she is getting better. COVID rapid antigen test was negative, urine Legionella was not homicide detective, urine pneumococcal antigen was not homicide detective mycoplasma pneumonia IgM is 122 normal is less than 770. After discussion with the rest of her medical team she was not giving any immunoglobulins in this hospitalization as she was clinically im (2) Sleep apnea: Qualifiers: Sleep apnea type: obstructive Qualified Code(s): G47.33 - Obstructive sleep apnea (adult) (pediatric) Code(s): G47.30 - Sleep apnea, unspecified Status: Acute Assessment and Plan: Patient is on a CPAP 7 and at her last office visit on 07/22 she had excellent compliance with an AHI of 1.0 and of note her machine had been recalled. She is waiting to get a new machine and she was wearing her machine due to his severity of disease. While she is in the hospital she does not wish to wear CPAP. (3) Asthma: Qualifiers: Asthma severity: unspecified severity Asthma persistence: unspecified Asthma complication type: unspecified Qualified Code(s): J45.909 - Unspecified asthma, uncomplicated Code(s): J45.909 - Unspecified asthma, uncomplicated Status: Chronic Assessment and Plan: Patient has no wheezing on exam and is being switched over to prednisone 40 mg a day starting 10 28. Patient is on albuterol and ipratropium nebulizers q.4 hours and I will discontinue her Advair at this time since she is on maximal doses of beta agonist and oral steroids. Will follow with you Subjective Date/time seen: 10/27/21 15:11 Interval history: 10/26/21 09:53 Patient feels better. Continues to have mild cough, unable to clear bronchial secretions, also mild right-sided pleuritic chest pain. Overall feels better. Has been out of bed to chair, and also walking to bathroom. Afebrile, no wheezing. 10/27 Overall patient feels like she is improving. She still has coughing episodes associated with right pleuritic chest pain with minimal improvement. She is ambulating around the room better since admission. Currently she is on room air at rest with saturations 92%. She remains on cefepime (10/21), azithromycin (10/19) and vancomycin (10/21). Her Solu-Medrol as switched to 40 mg p.o. q.day starting 10/28. No wheezes on albuterol and ipratropium nebulizers q.4 hours and advair BID. Review of Systems Review of Systems: All systems reviewed & are unremarkable except as noted in HPI and below Eyes: Eyes: Reports no additional eye complaints ENT: Reports system reviewed and no additional complaints, except as documented Cardiovascular: Cardiovascular: Reports no additional cardiovascular complaints Respiratory: Respiratory: Reports no additional respiratory complaints Gastrointestinal: Gastrointestinal: Reports no additional gastrointestinal complaints Musculoskeletal: Musculoskeletal: Reports no additional musculoskeletal complaints Integumentary/Breasts: Skin/Breast: Reports system reviewed and no additional complaints, except as docu Neurologic: Reports system reviewed and no additional complaints, except as documented Psychiatric: Psychiatric: Reports no additional psychiatric complaints
[2021-10-27 15:36] LABS: Legionella pneumophila Ag Ur Not Detected (Not Detected)
[2021-10-27] MEDS: SODIUM CHLORIDE NASAL GEL 14.1 GM 1 APPLIC NASAL (20:58)
[2021-10-27] MEDS: SALINE 0.65% NAS SOLN 44 ML BTL 1 SPRAY NASAL (21:01)
[2021-10-28] VITALS (12 sets, daily range): BP systolic 115–155; BP diastolic 65–70; PULSE 75–95; RESP 16–22; TEMP 36.4–36.9; O2SAT 91–96
[2021-10-28] MEDS: ALBUTEROL SULFATE NEB 2.5 MG/0.5 ML INH INHALATION ×5 (03:18→21:36)
[2021-10-28] MEDS: IPRATROPIUM BR 0.02% INH SOLN 0.5 MG/2.5 ML VIAL INHALATION ×5 (03:19→21:36)
[2021-10-28] MEDS: LORazepam (*CRX) 0.5 MG TABLET PO (03:26)
[2021-10-28] MEDS: LEVOTHYROXINE SODIUM 88 MCG TABLET PO (06:26)
[2021-10-28 08:06] LABS: Glucose Point of Care 126 mg/dl (65-105)
[2021-10-28] MEDS: ENOXAPARIN 40 MG/0.4 ML SYRINGE SUB-Q ×2 (08:24→22:46)
[2021-10-28] MEDS: FLUTICASONE PROPIONATE 0.05% NA SPR 16 GM BTL (*BKC) 1 SPRAY NASAL (08:25)
[2021-10-28] MEDS: guaiFENesin 12 HR 600 MG TABCR PO ×2 (08:25→22:43)
[2021-10-28] MEDS: LOSARTAN POTASSIUM 50 MG TABLET 100 MG PO (08:25)
[2021-10-28] MEDS: FOLIC ACID 1 MG TABLET 3 MG PO (08:25)
[2021-10-28] MEDS: PRAVASTATIN SODIUM 20 MG TABLET PO (08:25)
[2021-10-28] MEDS: predniSONE 20 MG TABLET 40 MG PO (08:25)
[2021-10-28] MEDS: busPIRone HCL 5 MG TABLET PO ×2 (08:26→16:59)
[2021-10-28] MEDS: SPIRONOLACTONE 50 MG TABLET PO (08:26)
[2021-10-28] MEDS: PANTOPRAZOLE 40 MG TABLET PO (08:26)
[2021-10-28] MEDS: MONTELUKAST SODIUM 10 MG TABLET PO (08:26)
--- NOTE | 2021-10-28 12:29 | PM.PNPUL ---
Progress Note: A&P Assessment and Plan (1) Pneumonia: Qualifiers: Pneumonia type: due to unspecified organism Laterality: right Lung location: lower lobe of lung Qualified Code(s): J18.9 - Pneumonia, unspecified organism Code(s): J18.9 - Pneumonia, unspecified organism Status: Acute Assessment and Plan: patient has a history of immunoglobulin deficiency and now with multifocal pneumonia and Staph aureus in her sputum. Blood cultures are negative. Patient is slowly improving with vancomycin, cefepime and azithromycin and will continue those antibiotics today. She is afebrile with a normal white blood cell count yesterday. Patient tells me that she still feels acutely ill but that she is getting better. COVID rapid antigen test was negative, urine Legionella was not piece work checker, urine pneumococcal antigen was not piece work checker mycoplasma pneumonia IgM is 122 normal is less than 770. After discussion with the rest of her medical team she was not giving any immunoglobulins in this hospitalization as she was clinically improving. 10/28 Patient tells me that she is slowly getting better. Her sinus congestion is about the same. She states her cough is a little less frequent and she has no phlegm or hemoptysis. She is on prednisone 40 today and today is her 5th day. I will discontinue the azithromycin as today is day 10. She continues on cefepime and vancomycin since 10/21. (2) Sleep apnea: Qualifiers: Sleep apnea type: obstructive Qualified Code(s): G47.33 - Obstructive sleep apnea (adult) (pediatric) Code(s): G47.30 - Sleep apnea, unspecified Status: Acute Assessment and Plan: Patient is on a CPAP 7 and at her last office visit on 07/22 she had excellent compliance with an AHI of 1.0 and of note her machine had been recalled. She is waiting to get a new machine and she was wearing her machine due to his severity of disease. While she is in the hospital she does not wish to wear CPAP. (3) Asthma: Qualifiers: Asthma severity: unspecified severity Asthma persistence: unspecified Asthma complication type: unspecified Qualified Code(s): J45.909 - Unspecified asthma, uncomplicated Code(s): J45.909 - Unspecified asthma, uncomplicated Status: Chronic Assessment and Plan: 10/27 Patient has no wheezing on exam and is being switched over to prednisone 40 mg a day starting 10 28. Patient is on albuterol and ipratropium nebulizers q.4 hours and I will discontinue her Advair at this time since she is on maximal doses of beta agonist and oral steroids. 10/28 She has no wheezing on exam and I will change her nebulizers to Q 4 while awake, I will DC her prednisone after today's dose. Will follow with you Subjective Date/time seen: 10/28/21 12:29 Interval history: 10/26/21 09:53 Patient feels better. Continues to have mild cough, unable to clear bronchial secretions, also mild right-sided pleuritic chest pain. Overall feels better. Has been out of bed to chair, and also walking to bathroom. Afebrile, no wheezing. 10/27 Overall patient feels like she is improving. She still has coughing episodes associated with right pleuritic chest pain with minimal improvement. She is ambulating around the room better since admission. Currently she is on room air at rest with saturations 92%. She remains on cefepime (10/21), azithromycin (10/19) and vancomycin (10/21). Her Solu-Medrol as switched to 40 mg p.o. q.day starting 10/28. No wheezes on albuterol and ipratropium nebulizers q.4 hours and advair BID. 10/28 Patient tells me that she is slowly getting better. Her sinus congestion is about the same. She states her cough is a little less frequent and she has no phlegm or hemoptysis. She is on prednisone 40 today and today is her 5th day. I will discontinue the azithromycin as today is day 10. She continues on cefepime and vancomycin si
[2021-10-28] MEDS: POTASSIUM CHLORIDE 20 MEQ PACKET (FOR LIQUID) PO (12:30)
--- NOTE | 2021-10-28 13:14 | PCPTNOTE ---
attempted therapy, eating lunch. Will try therapy later today.
[2021-10-28 13:17] LABS: Anion Gap 6 mmol/L (8-16); Blood Urea Nitrogen 14 mg/dL (7-17); CRP 0.9 mg/dL (<1.0); Carbon Dioxide 30 mmol/L (22-30); Chloride 100 mmol/L (98-107); Estimated CRCL calculation 91 ml/min; Estimated Glomerular Filt Rate > 60; Glucose 140 mg/dL (65-110); Sodium 136 mmol/L (137-145)
[2021-10-28 14:20] LABS: Basophils Absolute Auto 0.1 K/mm3 (0.0-0.1); Basophils Percent Auto 0.7 % (0.2-1.2); Eosinophils Percent Auto 0.4 % (0-4.4); Hematocrit 38.7 % (37.0-47.0); Immature Granulocyte Absolute 0.57 K/mm3 (0.00-0.031); Immature Granulocyte Percent A 5.1 % (0-0.5); Lymphocytes Absolute Auto 1.17 K/mm3 (0.9-3.2); Lymphocytes Percent Auto 10.4 % (18.3-44.2); Mean Corpuscular Volume 90.2 fl (80-100); Mean Platelet Volume 10.8 fl (7.4-10.4); Monocytes Absolute Auto 0.4 K/mm3 (0.1-0.6); Monocytes Percent Auto 3.8 % (2.6-8.5); Neutrophils Absolute Auto 8.9 K/mm3 (1.3-6.7); Neutrophils Percent Auto 79.6 % (45.5-73.1); Platelet Count Result 262 k/mm3 (150-375); Red Blood Count 4.29 M/mm3 (4.2-5.4); Red Cell Distribution Width 15.1 % (11.5-14.5); White Blood Count 11.2 K/mm3 (4.5-10.0)
[2021-10-28] MEDS: ACETYLCYSTEINE 20% INHAL SOLN 800 MG/4 ML VIAL 200 MG INHALATION (21:36)
[2021-10-28] MEDS: SALINE 0.65% NAS SOLN 44 ML BTL 1 SPRAY NASAL (22:43)
[2021-10-28] MEDS: ACETAMINOPHEN 500 MG TABLET 1000 MG PO (22:43)
[2021-10-28] MEDS: SODIUM CHLORIDE NASAL GEL 14.1 GM 1 APPLIC NASAL (22:46)
[2021-10-29] VITALS (12 sets, daily range): BP systolic 128–139; BP diastolic 48–65; PULSE 79–94; RESP 12–36; TEMP 36.2–36.7; O2SAT 93–95
[2021-10-29] MEDS: LEVOTHYROXINE SODIUM 88 MCG TABLET PO (05:50)
[2021-10-29 06:13] LABS: Anion Gap 3 mmol/L (8-16); Blood Urea Nitrogen 16 mg/dL (7-17); Calcium 8.8 mg/dL (8.4-10.2); Carbon Dioxide 30 mmol/L (22-30); Chloride 103 mmol/L (98-107); Estimated CRCL calculation 91 ml/min; Estimated Glomerular Filt Rate > 60; Glucose 99 mg/dL (65-110); Potassium 3.6 mmol/L (3.4-5.0); Sodium 136 mmol/L (137-145)
[2021-10-29] MEDS: LOSARTAN POTASSIUM 50 MG TABLET 100 MG PO (08:18)
[2021-10-29] MEDS: ENOXAPARIN 40 MG/0.4 ML SYRINGE SUB-Q ×2 (08:18→22:50)
[2021-10-29] MEDS: guaiFENesin 12 HR 600 MG TABCR PO ×2 (08:18→22:50)
[2021-10-29] MEDS: FOLIC ACID 1 MG TABLET 3 MG PO (08:19)
[2021-10-29] MEDS: MONTELUKAST SODIUM 10 MG TABLET PO (08:19)
[2021-10-29] MEDS: PANTOPRAZOLE 40 MG TABLET PO (08:19)
[2021-10-29] MEDS: SPIRONOLACTONE 50 MG TABLET PO (08:19)
[2021-10-29] MEDS: PRAVASTATIN SODIUM 20 MG TABLET PO (08:19)
[2021-10-29] MEDS: busPIRone HCL 5 MG TABLET PO ×2 (08:19→16:46)
[2021-10-29] MEDS: FLUTICASONE PROPIONATE 0.05% NA SPR 16 GM BTL (*BKC) 1 SPRAY NASAL (08:20)
[2021-10-29] MEDS: SALINE 0.65% NAS SOLN 44 ML BTL 1 SPRAY NASAL ×2 (08:22→22:50)
--- NOTE | 2021-10-29 10:46 | PM.PNPUL ---
Progress Note: A&P Assessment and Plan (1) Pneumonia: Qualifiers: Pneumonia type: due to unspecified organism Laterality: right Lung location: lower lobe of lung Qualified Code(s): J18.9 - Pneumonia, unspecified organism Code(s): J18.9 - Pneumonia, unspecified organism Status: Acute Assessment and Plan: patient has a history of immunoglobulin deficiency and now with multifocal pneumonia and Staph aureus in her sputum. Blood cultures are negative. Patient is slowly improving with vancomycin, cefepime and azithromycin and will continue those antibiotics today. She is afebrile with a normal white blood cell count yesterday. Patient tells me that she still feels acutely ill but that she is getting better. COVID rapid antigen test was negative, urine Legionella was not bank and savings securities trader, urine pneumococcal antigen was not bank and savings securities trader mycoplasma pneumonia IgM is 122 normal is less than 770. After discussion with the rest of her medical team she was not giving any immunoglobulins in this hospitalization as she was clinically improving. 10/28 Patient tells me that she is slowly getting better. Her sinus congestion is about the same. She states her cough is a little less frequent and she has no phlegm or hemoptysis. She is on prednisone 40 today and today is her 5th day. I will discontinue the azithromycin as today is day 10. She continues on cefepime and vancomycin since 10/21. 10/29 Patient continues to improve. The sinuses are still congested but better. The cough is about the same. She is on room air during the day and 2 L at night. I will continue cefepime while she is in the hospital. I recommend treating the patient with vancomycin for 3 weeks (through 11/10/21) and this should be continued as an outpatient. Patient currently has a PICC and the hospitalist team will discuss this with care coordination. Discussed with Dr. Ryder inpatient Pulmonary Services will resume on 11/01/2021. Call with questions. (2) Sleep apnea: Qualifiers: Sleep apnea type: obstructive Qualified Code(s): G47.33 - Obstructive sleep apnea (adult) (pediatric) Code(s): G47.30 - Sleep apnea, unspecified Status: Acute Assessment and Plan: Patient is on a CPAP 7 and at her last office visit on 07/22 she had excellent compliance with an AHI of 1.0 and of note her machine had been recalled. She is waiting to get a new machine and she was wearing her machine due to his severity of disease. While she is in the hospital she does not wish to wear CPAP. (3) Asthma: Qualifiers: Asthma severity: unspecified severity Asthma persistence: unspecified Asthma complication type: unspecified Qualified Code(s): J45.909 - Unspecified asthma, uncomplicated Code(s): J45.909 - Unspecified asthma, uncomplicated Status: Chronic Assessment and Plan: 10/27 Patient has no wheezing on exam and is being switched over to prednisone 40 mg a day starting 10 28. Patient is on albuterol and ipratropium nebulizers q.4 hours and I will discontinue her Advair at this time since she is on maximal doses of beta agonist and oral steroids. 10/28 She has no wheezing on exam and I will change her nebulizers to Q 4 while awake, I will DC her prednisone after today's dose. 10/29 Patient has no wheezes and states she is doing well on the nebulizers Q 4 while awake will continue. Subjective Date/time seen: 10/29/21 10:46 Interval history: 10/26/21 09:53 Patient feels better. Continues to have mild cough, unable to clear bronchial secretions, also mild right-sided pleuritic chest pain. Overall feels better. Has been out of bed to chair, and also walking to bathroom. Afebrile, no wheezing. 10/27 Overall patient feels like she is improving. She still has coughing episodes associated with right pleuritic chest pain with minimal improvement. She is ambulating around the room better [facility]
--- NOTE | 2021-10-29 11:04 | PCRCNOTE ---
Window of time for administration has passed. See next scheduled administration.
[2021-10-29] MEDS: ALBUTEROL SULFATE NEB 2.5 MG/0.5 ML INH INHALATION ×4 (12:04→19:58)
[2021-10-29] MEDS: IPRATROPIUM BR 0.02% INH SOLN 0.5 MG/2.5 ML VIAL INHALATION ×3 (12:04→19:58)
[2021-10-29] MEDS: ACETAMINOPHEN 500 MG TABLET 1000 MG PO ×2 (13:36→23:08)
[2021-10-29] MEDS: LORazepam (*CRX) 0.5 MG TABLET PO (16:45)
[2021-10-29] MEDS: BUDESONIDE RESPULE NEB 0.5 MG/2 ML AMP INHALATION (19:58)
[2021-10-29] MEDS: SODIUM CHLORIDE NASAL GEL 14.1 GM 1 APPLIC NASAL (22:50)
[2021-10-29] MEDS: predniSONE 20 MG TABLET 40 MG PO (22:50)
[2021-10-30] VITALS (7 sets, daily range): BP systolic 137–150; BP diastolic 58–81; PULSE 86–99; RESP 16–22; TEMP 36–37.1; O2SAT 93–97
[2021-10-30] MEDS: LEVOTHYROXINE SODIUM 88 MCG TABLET PO (05:55)
[2021-10-30 06:30] LABS: Basophils Absolute Auto 0.1 K/mm3 (0.0-0.1); Basophils Percent Auto 0.7 % (0.2-1.2); Eosinophils Absolute Auto 0.1 K/mm3 (0-0.3); Hematocrit 36.7 % (37.0-47.0); Hemoglobin 11.5 g/dL (12.0-15.0); Immature Granulocyte Absolute 0.31 K/mm3 (0.00-0.031); Immature Granulocyte Percent A 3.5 % (0-0.5); Lymphocytes Absolute Auto 0.98 K/mm3 (0.9-3.2); Lymphocytes Percent Auto 11.2 % (18.3-44.2); Mean Corpuscular HGB Conc 31.3 g/dl (32-36); Mean Corpuscular Hemoglobin 28.1 pg (26-34); Mean Corpuscular Volume 89.7 fl (80-100); Mean Platelet Volume 10.6 fl (7.4-10.4); Monocytes Absolute Auto 0.3 K/mm3 (0.1-0.6); Monocytes Percent Auto 3.8 % (2.6-8.5); Neutrophils Percent Auto 79.8 % (45.5-73.1); Platelet Count Result 185 k/mm3 (150-375); Red Blood Count 4.09 M/mm3 (4.2-5.4); White Blood Count 8.8 K/mm3 (4.5-10.0)
[2021-10-30 06:49] LABS: Alanine Aminotransferase 36 U/L (4-35); Albumin Level 3.4 g/dL (3.5-5.1); Alkaline Phosphatase 66 U/L (38-126); Anion Gap 6 mmol/L (8-16); Aspartate Amino Transferase 26 U/L (14-36); Bilirubin,Total 0.6 mg/dL (0.2-1.3); Blood Urea Nitrogen 17 mg/dL (7-17); Calcium 8.9 mg/dL (8.4-10.2); Carbon Dioxide 27 mmol/L (22-30); Chloride 103 mmol/L (98-107); Estimated CRCL calculation 82 ml/min; Estimated Glomerular Filt Rate > 60; Glucose 124 mg/dL (65-110); Potassium 4.2 mmol/L (3.4-5.0); Sodium 136 mmol/L (137-145)
[2021-10-30] MEDS: ENOXAPARIN 40 MG/0.4 ML SYRINGE SUB-Q ×2 (08:25→21:55)
[2021-10-30] MEDS: FLUTICASONE PROPIONATE 0.05% NA SPR 16 GM BTL (*BKC) 1 SPRAY NASAL (08:25)
[2021-10-30] MEDS: PANTOPRAZOLE 40 MG TABLET PO (08:25)
[2021-10-30] MEDS: predniSONE 20 MG TABLET 40 MG PO (08:26)
[2021-10-30] MEDS: guaiFENesin 12 HR 600 MG TABCR PO ×2 (08:26→21:55)
[2021-10-30] MEDS: busPIRone HCL 5 MG TABLET PO ×2 (08:26→16:49)
[2021-10-30] MEDS: SPIRONOLACTONE 50 MG TABLET PO (08:26)
[2021-10-30] MEDS: MONTELUKAST SODIUM 10 MG TABLET PO (08:26)
[2021-10-30] MEDS: FOLIC ACID 1 MG TABLET 3 MG PO (08:26)
[2021-10-30] MEDS: LOSARTAN POTASSIUM 50 MG TABLET 100 MG PO (08:26)
[2021-10-30] MEDS: PRAVASTATIN SODIUM 20 MG TABLET PO (08:26)
[2021-10-30] MEDS: LORATADINE 10 MG TABLET PO (08:27)
--- NOTE | 2021-10-30 10:47 | PM.DS ---
DS: Admitting Diagnosis Discharge Date 11/01/2021 Admitting Diagnosis Pneumonia DS: Discharge Diagnosis Discharge Diagnosis (1) Pneumonia: Qualifiers: Laterality: right Lung location: unspecified part of lung Pneumonia type: due to unspecified organism Qualified Code(s): J18.9 - Pneumonia, unspecified organism Code(s): J18.9 - Pneumonia, unspecified organism Status: Acute Assessment and Plan: Symptoms and CT consistent with PNA, CXR showing improving PNA. -Much improved today after addition of steroids, lasix and Pulmozyme.No further lasix needed -continue cefepime, azithromycin, and vancomycin - sputum culture growing Staph aureus, sensitive to vanc. PICC line in place -continue schedule breathing tx, Mucinex, and incentive spirometer with cornet -immunosuppressed, hold immunosuppressive therapy -cp likely due to pna, no ekg findings 10/22 and seems pleuritic in nature. -continue o2 as needed for sats <90. She is usually only on o2 at home with activity. I have asked them to wean the oxygen at rest but she continues to be on oxygen. No reports of hypoxia. I have turned off the oxygen in the room and will recheck it with morning vitals to ensure her she does not require any oxygen. She only uses oxygen with activity at home -would recommend transitioning from IV steroids today to oral steroids tomorrow to see how she does. Her CRP is almost normal which is a big improvement and she has no further wheezing. I have placed the orders but will also see what pulmonology recommends. 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 (3) YOON (obstructive sleep apnea): Code(s): G47.33 - Obstructive sleep apnea (adult) (pediatric) Status: Acute Assessment and Plan: She does not want to use our CPAP because she does not like it. I told her she is welcome to bring her own in (4) Asthma with exacerbation: Qualifiers: Asthma persistence: unspecified Asthma severity: unspecified severity Qualified Code(s): J45.901 - Unspecified asthma with (acute) exacerbation Code(s): J45.901 - Unspecified asthma with (acute) exacerbation Status: Acute Assessment and Plan: As above -transition from IV steroids today to oral steroids tomorrow since her wheezing has improved (5) Diabetes: Qualifiers: Diabetes mellitus type: type 2 Code(s): E11.9 - Type 2 diabetes mellitus without complications Status: Acute Assessment and Plan: Last glucose 99 -will continue A.c. and HS Accu-Cheks as her A1c is 5.5 and her glucose has not required any sliding scale insulin while here. She is not on any hypoglycemics at this time. -Continue monitoring with daily labs (6) Hyperlipidemia: Code(s): E78.5 - Hyperlipidemia, unspecified Status: Acute Assessment and Plan: Chronic, continue home fenofibrate and pravastatin (7) Hypertension: Code(s): I10 - Essential (primary) hypertension Status: Acute Assessment and Plan: Last bp 141/70 -continue losartan and spironolactone (8) Fever: Code(s): R50.9 - Fever, unspecified Status: Acute Assessment and Plan: Fever reported on 10/25/2021 but she has been running lower since. Atelectasis? Doubt worsening infection. She continues to be on antibiotics and chest x-ray seems to be improving. No other signs of bacterial infection. Continue cefepime, vancomycin and azithromycin. Blood cultures negative (9) Acute and chronic respiratory failure with hypoxia: Code(s): J96.21 - Acute and chronic respirator
--- NOTE | 2021-10-30 11:38 | PCRCNOTE ---
Window of time for administration has passed. See next scheduled administration.
[2021-10-30] MEDS: IPRATROPIUM BR 0.02% INH SOLN 0.5 MG/2.5 ML VIAL INHALATION ×2 (11:56→21:00)
[2021-10-30] MEDS: ALBUTEROL SULFATE NEB 2.5 MG/0.5 ML INH INHALATION (11:56)
--- NOTE | 2021-10-30 18:35 | PCRCNOTE ---
Window of time for administration has passed. See next scheduled administration.
[2021-10-30] MEDS: ACETYLCYSTEINE 20% INHAL SOLN 800 MG/4 ML VIAL 200 MG INHALATION (21:00)
[2021-10-30] MEDS: BUDESONIDE RESPULE NEB 0.5 MG/2 ML AMP INHALATION (21:00)
[2021-10-30] MEDS: SODIUM CHLORIDE NASAL GEL 14.1 GM 1 APPLIC NASAL (21:58)
[2021-10-31] VITALS (13 sets, daily range): BP systolic 119–166; BP diastolic 65–74; PULSE 87–96; RESP 16–24; TEMP 36.3; O2SAT 94–96
[2021-10-31] MEDS: ALBUTEROL SULFATE NEB 2.5 MG/0.5 ML INH INHALATION ×5 (01:21→20:28)
[2021-10-31] MEDS: LEVOTHYROXINE SODIUM 88 MCG TABLET PO (05:09)
[2021-10-31] MEDS: FOLIC ACID 1 MG TABLET 3 MG PO (08:27)
[2021-10-31] MEDS: MONTELUKAST SODIUM 10 MG TABLET PO (08:27)
[2021-10-31] MEDS: SPIRONOLACTONE 50 MG TABLET PO (08:28)
[2021-10-31] MEDS: FLUTICASONE PROPIONATE 0.05% NA SPR 16 GM BTL (*BKC) 1 SPRAY NASAL (08:28)
[2021-10-31] MEDS: LOSARTAN POTASSIUM 50 MG TABLET 100 MG PO (08:28)
[2021-10-31] MEDS: PRAVASTATIN SODIUM 20 MG TABLET PO (08:28)
[2021-10-31] MEDS: guaiFENesin 12 HR 600 MG TABCR PO ×2 (08:28→21:09)
[2021-10-31] MEDS: PANTOPRAZOLE 40 MG TABLET PO (08:28)
[2021-10-31] MEDS: predniSONE 20 MG TABLET 40 MG PO (08:28)
[2021-10-31] MEDS: ENOXAPARIN 40 MG/0.4 ML SYRINGE SUB-Q ×2 (08:28→21:09)
[2021-10-31] MEDS: busPIRone HCL 5 MG TABLET PO ×2 (08:28→16:17)
[2021-10-31] MEDS: LORATADINE 10 MG TABLET PO (08:29)
[2021-10-31] MEDS: ACETAMINOPHEN 500 MG TABLET 1000 MG PO (12:01)
[2021-10-31] MEDS: IPRATROPIUM BR 0.02% INH SOLN 0.5 MG/2.5 ML VIAL INHALATION ×2 (12:07→16:02)
[2021-10-31] MEDS: LORazepam (*CRX) 0.5 MG TABLET PO (12:22)
[2021-10-31] MEDS: BUDESONIDE RESPULE NEB 0.5 MG/2 ML AMP INHALATION (20:28)
[2021-11-01] VITALS (12 sets, daily range): BP systolic 137–139; BP diastolic 58–71; PULSE 73–91; RESP 16–20; TEMP 36.3–36.6; O2SAT 95–96
[2021-11-01] MEDS: SODIUM CHLORIDE NASAL GEL 14.1 GM 1 APPLIC NASAL ×2 (04:44→20:52)
[2021-11-01] MEDS: LEVOTHYROXINE SODIUM 88 MCG TABLET PO (06:10)
[2021-11-01] MEDS: FOLIC ACID 1 MG TABLET 3 MG PO (08:25)
[2021-11-01] MEDS: busPIRone HCL 5 MG TABLET PO ×2 (08:25→17:15)
[2021-11-01] MEDS: ENOXAPARIN 40 MG/0.4 ML SYRINGE SUB-Q ×2 (08:25→20:26)
[2021-11-01] MEDS: predniSONE 20 MG TABLET 40 MG PO (08:25)
[2021-11-01] MEDS: guaiFENesin 12 HR 600 MG TABCR PO ×2 (08:26→20:26)
[2021-11-01] MEDS: PRAVASTATIN SODIUM 20 MG TABLET PO (08:26)
[2021-11-01] MEDS: LOSARTAN POTASSIUM 50 MG TABLET 100 MG PO (08:26)
[2021-11-01] MEDS: MONTELUKAST SODIUM 10 MG TABLET PO (08:26)
[2021-11-01] MEDS: FLUTICASONE PROPIONATE 0.05% NA SPR 16 GM BTL (*BKC) 1 SPRAY NASAL (08:26)
[2021-11-01] MEDS: PANTOPRAZOLE 40 MG TABLET PO (08:26)
[2021-11-01] MEDS: SPIRONOLACTONE 50 MG TABLET PO (08:26)
[2021-11-01] MEDS: ACETYLCYSTEINE 20% INHAL SOLN 800 MG/4 ML VIAL 200 MG INHALATION ×2 (09:23→20:34)
[2021-11-01] MEDS: BUDESONIDE RESPULE NEB 0.5 MG/2 ML AMP INHALATION ×2 (09:23→20:34)
[2021-11-01] MEDS: ALBUTEROL SULFATE NEB 2.5 MG/0.5 ML INH INHALATION ×4 (09:23→20:34)
[2021-11-01] MEDS: IPRATROPIUM BR 0.02% INH SOLN 0.5 MG/2.5 ML VIAL INHALATION ×4 (09:23→20:34)
--- NOTE | 2021-11-01 10:50 | PM.PNPUL ---
Progress Note: A&P Assessment and Plan (1) Pneumonia: Qualifiers: Pneumonia type: due to unspecified organism Laterality: right Lung location: lower lobe of lung Qualified Code(s): J18.9 - Pneumonia, unspecified organism Code(s): J18.9 - Pneumonia, unspecified organism Status: Acute Assessment and Plan: patient has a history of immunoglobulin deficiency and now with multifocal pneumonia and Staph aureus in her sputum. Blood cultures are negative. Patient is slowly improving with vancomycin, cefepime and azithromycin and will continue those antibiotics today. She is afebrile with a normal white blood cell count yesterday. Patient tells me that she still feels acutely ill but that she is getting better. COVID rapid antigen test was negative, urine Legionella was not frame trimmer, urine pneumococcal antigen was not frame trimmer mycoplasma pneumonia IgM is 122 normal is less than 770. After discussion with the rest of her medical team she was not giving any immunoglobulins in this hospitalization as she was clinically improving. 10/28 Patient tells me that she is slowly getting better. Her sinus congestion is about the same. She states her cough is a little less frequent and she has no phlegm or hemoptysis. She is on prednisone 40 today and today is her 5th day. I will discontinue the azithromycin as today is day 10. She continues on cefepime and vancomycin since 10/21. 10/29 Patient continues to improve. The sinuses are still congested but better. The cough is about the same. She is on room air during the day and 2 L at night. I will continue cefepime while she is in the hospital. I recommend treating the patient with vancomycin for 3 weeks (through 11/10/21) and this should be continued as an outpatient. Patient currently has a PICC and the hospitalist team will discuss this with care coordination. 11/01/21 Patient states that she continues to improve patient tells me that she continued to improve through the weekend after the prednisone was restarted Monday night. Patient states she is stronger and ready to go home today. Cefepime was stopped on 10/31/2020. Chest x-ray on 10/30 demonstrated stable right mid and lower lobe and left lower lobe infiltrates. She is on room air during rest and with sleep and 2 L nasal cannula with oxygenation. Her her room air saturations at rest are 96%. Patient is ready for discharge home from a pulmonary perspective on these pulmonary medications. Vancomycin through 11/10/21 Prednisone taper 30 mg PO X 3 days, 20 mg PO X 3 days then 10 mg PO X 3 days then off. Albuterol 2.5 mg nebs q.i.d.. Ipratropium 0.5 mg nebs q.i.d. Budesonide 500 mcg nebs twice a day room air at rest and when sleeps and 2 L with ambulation CPAP 7 when sleeps using her home machine follow-up in Pulmonary Clinic in 3-4 weeks. Call with questions. (2) Sleep apnea: Qualifiers: Sleep apnea type: obstructive Qualified Code(s): G47.33 - Obstructive sleep apnea (adult) (pediatric) Code(s): G47.30 - Sleep apnea, unspecified Status: Acute Assessment and Plan: Patient is on a CPAP 7 and at her last office visit on 07/22 she had excellent compliance with an AHI of 1.0 and of note her machine had been recalled. She is waiting to get a new machine and she was wearing her machine due to his severity of disease. While she is in the hospital she does not wish to wear our CPAP. (3) Asthma: Qualifiers: Asthma severity: unspecified severity Asthma persistence: unspecified Asthma complication type: unspecified Qualified Code(s): J45.909 - Unspecified asthma, uncomplicated Code(s): J45.909 - Unspecified asthma, uncomplicated Status: Chronic Assessment and Plan: 10/27 Patient has no wheezing on exam and is being switched over to prednisone 40 mg a day starting 10 28. Patient is on albuterol and ipratropium nebulizers q.4 hours and I
[2021-11-01 13:16] LABS: Estimated CRCL calculation 103 ml/min; Estimated Glomerular Filt Rate > 60
--- NOTE | 2021-11-01 15:18 | PCNWS ---
Weekly nutritional screen. Patient is tolerating current diet with adequate intake. No weight loss reported. No nutritional needs at this time.
--- NOTE | 2021-11-01 18:26 | PC.NURSE ---
Pharmacy recommended patient receive 1800 dose of vancomycin before discharge. Spoke with the Grain Cleaner in the ER who spoke with Grain Cleaner Andra and they stated [facility] will set [facility] medication for patient tomorrow. Patient is okay to be discharged after receiving antibiotic.
[2021-11-01 18:59] LABS: Vancomycin Trough 9.2 ug/mL (10.0-20.0)
[2021-11-01] MEDS: LORazepam (*CRX) 0.5 MG TABLET PO (21:09)
== END 2021-11-01 21:36 | disposition home health service (06) | DRG 193 ==
LOC: ANHED 10-19 04:47 → ANH3MEDSUR 10-19 10:15
PROVIDERS: Internal Medicine; Internal Medicine Hematology & Oncology; Internal Medicine Pulmonary Disease; Nurse Practitioner; Admitting Provider Internal Medicine; Emergency Provider Emergency Medicine; PCP Internal Medicine; Visit Provider Physician Assistant
DX: J18.9 Pneumonia, unspecified organism (principal); J96.21 Acute and chronic respiratory failure with hypoxia; D80.9 Immunodeficiency with predominantly antibody defects, unspecified; Z68.43 Body mass index [BMI] 50.0-59.9, adult; J45.901 Unspecified asthma with (acute) exacerbation; Z20.822 Contact with and (suspected) exposure to COVID-19; G47.33 Obstructive sleep apnea (adult) (pediatric); M06.9 Rheumatoid arthritis, unspecified; E11.9 Type 2 diabetes mellitus without complications; E66.01 Morbid (severe) obesity due to excess calories; E78.5 Hyperlipidemia, unspecified; I10 Essential (primary) hypertension; R50.9 Fever, unspecified; Z23 Encounter for immunization; Z86.16 Personal history of COVID-19; Z87.891 Personal history of nicotine dependence; Z79.84 Long term (current) use of oral hypoglycemic drugs; Z79.899 Other long term (current) drug therapy; Z88.0 Allergy status to penicillin; Z88.2 Allergy status to sulfonamides; Z88.5 Allergy status to narcotic agent; Z99.81 Dependence on supplemental oxygen
CPT/HCPCS: 36415; 36569; 36600; 71045; 71046; 71275; 80048; 80053; 80076; 80202; 82375; 82565; 82784; 82805; 82948; 83050; 83605; 83735; 83880; 84439; 84443; 84480; 84484; 85014; 85018; 85025; 85027; 85380; 85610; 85730; 86140; 86738; 87040; 87070; 87077; 87186; 87205; 87426; 87449; 87899; 90471; 90653; 93005; 93970; 94640; 94667; 94668; 96365; 96367; 96375; 97161; 99285; A9270; C1751; C9803; G0008; J0456; J0692; J0696; J1100; J1650; J1940; J2060; J2920; J3370; J7030; J7512; Q9967

== ENCOUNTER 2021-11-08 16:49 | Outpatient (NON) | payer BC, OTHER, SELFPAY ==
[2021-11-08 17:15] LABS: Alanine Aminotransferase 20 U/L (4-35); Albumin Level 3.5 g/dL (3.5-5.1); Alkaline Phosphatase 53 U/L (38-126); Anion Gap 7 mmol/L (8-16); Aspartate Amino Transferase 17 U/L (14-36); Bilirubin,Total 0.7 mg/dL (0.2-1.3); Blood Urea Nitrogen 16 mg/dL (7-17); Calcium 9.1 mg/dL (8.4-10.2); Carbon Dioxide 28 mmol/L (22-30); Chloride 101 mmol/L (98-107); Estimated Glomerular Filt Rate > 60; Glucose 135 mg/dL (65-110); Potassium 3.8 mmol/L (3.4-5.0); Sodium 136 mmol/L (137-145)
[2021-11-08 17:17] LABS: Basophils Percent Auto 0.5 % (0.2-1.2); Eosinophils Percent Auto 0.5 % (0-4.4); Hematocrit 39.3 % (37.0-47.0); Hemoglobin 12.2 g/dL (12.0-15.0); Immature Granulocyte Absolute 0.05 K/mm3 (0.00-0.031); Immature Granulocyte Percent A 0.8 % (0-0.5); Lymphocytes Absolute Auto 0.95 K/mm3 (0.9-3.2); Lymphocytes Percent Auto 16.1 % (18.3-44.2); Mean Corpuscular Hemoglobin 28.8 pg (26-34); Mean Corpuscular Volume 92.7 fl (80-100); Mean Platelet Volume 10.8 fl (7.4-10.4); Monocytes Absolute Auto 0.4 K/mm3 (0.1-0.6); Monocytes Percent Auto 6.3 % (2.6-8.5); Neutrophils Absolute Auto 4.5 K/mm3 (1.3-6.7); Neutrophils Percent Auto 75.8 % (45.5-73.1); Platelet Count Result 193 k/mm3 (150-375); Red Blood Count 4.24 M/mm3 (4.2-5.4); Red Cell Distribution Width 16.4 % (11.5-14.5); White Blood Count 5.9 K/mm3 (4.5-10.0)
[2021-11-08 17:52] LABS: Vancomycin Trough 6.9 ug/mL (10.0-20.0)
== END 2021-11-08 16:50 | disposition home or self-care (01) ==
LOC: HOME HLTH 17:00
PROVIDERS: PCP Internal Medicine; Visit Provider Internal Medicine Infectious Disease
DX: J18.9 Pneumonia, unspecified organism (principal); J96.21 Acute and chronic respiratory failure with hypoxia; Z79.2 Long term (current) use of antibiotics; Z45.2 Encounter for adjustment and management of vascular access device
CPT/HCPCS: 80053; 80202; 85025

== ENCOUNTER 2021-11-12 17:22 | Outpatient (NON) | payer BC, OTHER, SELFPAY ==
[2021-11-12 17:59] LABS: Vancomycin Trough 13.2 ug/mL (10.0-20.0)
== END 2021-11-12 17:23 | disposition home or self-care (01) ==
PROVIDERS: PCP Internal Medicine; Visit Provider Internal Medicine Infectious Disease
DX: Z51.81 Encounter for therapeutic drug level monitoring (principal); Z79.2 Long term (current) use of antibiotics; J18.9 Pneumonia, unspecified organism; J96.21 Acute and chronic respiratory failure with hypoxia; J15.211 Pneumonia due to Methicillin susceptible Staphylococcus aureus
CPT/HCPCS: 80202

== ENCOUNTER 2021-11-15 16:37 | Outpatient (RCR) | payer BC, OTHER, SELFPAY ==
[2021-11-15 17:37] LABS: Basophils Percent Auto 0.8 % (0.2-1.2); Eosinophils Absolute Auto 0.2 K/mm3 (0-0.3); Eosinophils Percent Auto 3.8 % (0-4.4); Hemoglobin 12.9 g/dL (12.0-15.0); Immature Granulocyte Absolute 0.01 K/mm3 (0.00-0.031); Immature Granulocyte Percent A 0.2 % (0-0.5); Lymphocytes Absolute Auto 1.67 K/mm3 (0.9-3.2); Lymphocytes Percent Auto 33.5 % (18.3-44.2); Mean Corpuscular HGB Conc 30.7 g/dl (32-36); Mean Corpuscular Hemoglobin 28.9 pg (26-34); Monocytes Absolute Auto 0.6 K/mm3 (0.1-0.6); Monocytes Percent Auto 12.4 % (2.6-8.5); Neutrophils Absolute Auto 2.5 K/mm3 (1.3-6.7); Neutrophils Percent Auto 49.3 % (45.5-73.1); Platelet Count Result 188 k/mm3 (150-375); Red Blood Count 4.47 M/mm3 (4.2-5.4); Red Cell Distribution Width 16.3 % (11.5-14.5)
[2021-11-15 17:52] LABS: Alanine Aminotransferase 24 U/L (4-35); Albumin Level 3.7 g/dL (3.5-5.1); Alkaline Phosphatase 51 U/L (38-126); Anion Gap 7 mmol/L (8-16); Aspartate Amino Transferase 25 U/L (14-36); Bilirubin,Total 0.7 mg/dL (0.2-1.3); Blood Urea Nitrogen 8 mg/dL (7-17); Calcium 9.7 mg/dL (8.4-10.2); Carbon Dioxide 29 mmol/L (22-30); Chloride 103 mmol/L (98-107); Estimated Glomerular Filt Rate > 60; Glucose 102 mg/dL (65-110); Potassium 3.6 mmol/L (3.4-5.0); Sodium 139 mmol/L (137-145)
[2021-11-15 18:18] LABS: Vancomycin Trough 14.6 ug/mL (10.0-20.0)
== END 2022-02-13 23:59 | disposition home or self-care (01) ==
LOC: HOME HLTH 16:37
PROVIDERS: PCP Internal Medicine; Visit Provider Internal Medicine Infectious Disease
DX: J18.9 Pneumonia, unspecified organism (principal); J96.21 Acute and chronic respiratory failure with hypoxia; Z79.2 Long term (current) use of antibiotics
CPT/HCPCS: 80053; 80202; 85025

== ENCOUNTER 2021-11-26 10:39 | Outpatient (CLI) | payer BC, OTHER, SELFPAY ==
--- NOTE | ~2021-11-26 | XR_ITS ---
XR chest 2V 11/26/2021 10:56 Indication: Pneumonia Procedure: 2 view chest Comparison: Comparison to multiple prior studies sequentially, with oldest reviewed study dated 09/30. Findings: Heart size normal. Left lung clear. Right basilar airspace disease. Small right pleural eff usion. No pneumothorax. No acute osseous abnormality. Impression: 1: Right basilar airspace disease which may represent atelectasis and/or pneumonia. 2: Small right pleural effusion. Reviewed, dictated and finalized at location B. RWATER HUNTER Impression: 1: Right basilar airspace disease which may represent atelectasis and/or pneumo philipp. 2: Small right pleural effusion.
== END 2021-11-26 10:40 | disposition home or self-care (01) ==
LOC: ANHIMG 10:42
PROVIDERS: PCP Internal Medicine; Visit Provider Internal Medicine Pulmonary Disease
DX: J18.9 Pneumonia, unspecified organism (principal); R91.8 Other nonspecific abnormal finding of lung field; J90 Pleural effusion, not elsewhere classified
CPT/HCPCS: 71046

== ENCOUNTER 2022-01-07 12:24 | Outpatient (CLI) | payer BC, OTHER, SELFPAY ==
[2022-01-07 13:00] VITALS: PULSE 92; O2SAT 92
[2022-01-07 13:02] VITALS: PULSE 107; O2SAT 86
[2022-01-07 13:03] VITALS: PULSE 107; O2SAT 87
[2022-01-07 13:04] VITALS: PULSE 103; O2SAT 87
[2022-01-07 13:05] VITALS: PULSE 93; O2SAT 90
[2022-01-07 13:15] VITALS: PULSE 93; O2SAT 93
--- NOTE | 2022-01-07 16:30 | HOMEO2EVAL ---
Evaluation was performed at [facility] Home Oxygen Evaluation RC: Home Oxygen (O2) Evaluation Start: 01/07/22 16:27 Freq: Status: Active Protocol: RPE Activity Type Activity Date Activity User E-Sign Co-Sign Detail Recorded Client Recorded Date Recorded By Document 01/07/22 13:00 [email or web address] [id number] 01/07/22 16:30 VIKKI Document 01/07/22 13:02 [email or web address] [email or web address] 01/07/22 16:30 VIKKI Document 01/07/22 13:03 [email or web address] [email or web address] 01/07/22 16:30 VIKKI Document 01/07/22 13:04 [email or web address] [email or web address] 01/07/22 16:30 VIKKI Document 01/07/22 13:05 [email or web address] [email or web address] 01/07/22 16:30 VIKKI Document 01/07/22 13:15 [email or web address] [email or web address] 01/07/22 16:30 VIKKI 01/07/22 01/07/22 01/07/22 13:00 13:02 13:03 Home O2 Evaluation Test Phase Resting Exercise Exercise Oxygen Delivery Room Air Room Air Nasal Cannula Oxygen Flow Rate (L/min) 2 Pulse Oximetry (90-100 %) 92 86 L 87 L Pulse Rate (60-100 beats/min) 92 107 H 107 H Home Oxygen Evaluation Comments Treatment Charges O2 Evaluation - Outpatient 01/07/22 01/07/22 01/07/22 13:04 13:05 13:15 Home O2 Evaluation Test Phase Exercise Exercise Resting Oxygen Delivery Nasal Cannula Nasal Cannula Room Air Oxygen Flow Rate (L/min) 3 4 Pulse Oximetry (90-100 %) 87 L 90 93 Pulse Rate (60-100 beats/min) 103 H 93 93 Home Oxygen Evaluation Comments PT REQUIRES 4 L WITH ACTIVITY Treatment Charges
--- NOTE | 2022-01-07 16:30 | PCRCNOTE ---
PT FAILED OUTPATIENT 6MWT, HOME O2 EVAL DONE AND FAXED TO OFFICE STAFF
== END 2022-01-07 12:25 | disposition home or self-care (01) ==
LOC: ANHPFT 12:25
PROVIDERS: PCP Internal Medicine; Visit Provider Internal Medicine Pulmonary Disease
DX: J45.909 Unspecified asthma, uncomplicated (principal)
CPT/HCPCS: 94618

== ENCOUNTER 2022-01-19 18:02 | Emergency (ER) | payer BC, OTHER, SELFPAY ==
[2022-01-19] VITALS (7 sets, daily range): BP systolic 114–205; BP diastolic 78–118; PULSE 80–96; RESP 18–24; TEMP 36.2; O2SAT 94–100
--- NOTE | ~2022-01-19 | CT_ITS ---
EXAMINATION: CT diagnostic chest wo con EXAM DATE: 01/19/2022 20:13 INDICATION: Shortness of breath . TECHNIQUE: Spiral CT of the chest without contrast. Axial, coronal and sagittal images of the chest were reviewed. Coronal maximum intensity pixel images of chest reviewed. The dose-length product ( DLP) for this examination was 875.34 mGy-cm. The exposure was tailored according to patient size (au to mA exposure control), and iterative reconstruction (ASIR) was used as additional dose reduction te [place]. Comparison is made to prior examination from 10/21/2021. FINDINGS: There is elevated right hemidiaphragm with multisegmental right lower lobe atelectasis, bu t resolution of previously seen pneumonia from September. There is trace right-sided subpulmonic pleur al effusion. Tracheobronchial tree is patent. There is no mediastinal, hilar or axillary lymphaden opathy. There is no pneumothorax. Heart normal in size. There is mild coronary arterial calcifi cation, arterial sclerosis. Right renal lesions, largest incompletely imaged but probably cysts. Th ere is mild to moderate thoracic spondylosis without osteoblastic or osteolytic lesions identified. IMPRESSION: 1. Multi segmental right lower lobe atelectasis. 2. Resolution of previously seen pneumonia. Reviewed, dictated and finalized at location G.
--- NOTE | 2022-01-19 18:39 | ECG_ITS ---
Measurements Intervals [place] Rate: 82 P: 38 IA: 167 QRS: 48 QRSD: 85 T: 39 QT: 373 QTc: 438 Interpretive Statements SINUS RHYTHM WITH SINUS ARRHYTHMIA NONSPECIFIC T-WAVE ABNORMALITY ABNORMAL ECG Electronically Signed On 01-20-2022 15:46:50 CDT by Hossein Varela M.D.
--- NOTE | 2022-01-19 18:39 | PC.NURSE ---
spoke with STERILE PROCESS TECH regarding chest xray from [facility]. Order set added , minus chest xray d/t recent cxr.
[2022-01-19 19:15] LABS: Basophils Absolute Auto 0.1 K/mm3 (0.0-0.1); Basophils Percent Auto 1.1 % (0.2-1.2); Eosinophils Absolute Auto 0.2 K/mm3 (0-0.3); Eosinophils Percent Auto 2.3 % (0-4.4); Hematocrit 45.3 % (37.0-47.0); Hemoglobin 14.2 g/dL (12.0-15.0); Immature Granulocyte Absolute 0.03 K/mm3 (0.00-0.031); Immature Granulocyte Percent A 0.4 % (0-0.5); Lymphocytes Absolute Auto 2.21 K/mm3 (0.9-3.2); Lymphocytes Percent Auto 26.5 % (18.3-44.2); Mean Corpuscular HGB Conc 31.3 g/dl (32-36); Mean Corpuscular Hemoglobin 28.6 pg (26-34); Mean Corpuscular Volume 91.1 fl (80-100); Mean Platelet Volume 11.6 fl (7.4-10.4); Monocytes Absolute Auto 1.1 K/mm3 (0.1-0.6); Monocytes Percent Auto 12.6 % (2.6-8.5); Neutrophils Absolute Auto 4.8 K/mm3 (1.3-6.7); Neutrophils Percent Auto 57.1 % (45.5-73.1); Platelet Count Result 273 k/mm3 (150-375); Red Blood Count 4.97 M/mm3 (4.2-5.4); Red Cell Distribution Width 13.5 % (11.5-14.5); White Blood Count 8.3 K/mm3 (4.5-10.0)
[2022-01-19 19:29] LABS: Alanine Aminotransferase 18 U/L (4-35); Albumin Level 4.3 g/dL (3.5-5.1); Alkaline Phosphatase 79 U/L (38-126); Anion Gap 4 mmol/L (8-16); Aspartate Amino Transferase 27 U/L (14-36); Bilirubin,Total 0.5 mg/dL (0.2-1.3); Blood Urea Nitrogen 11 mg/dL (7-17); Calcium 9.4 mg/dL (8.4-10.2); Carbon Dioxide 32 mmol/L (22-30); Chloride 104 mmol/L (98-107); Estimated CRCL calculation 73 ml/min; Estimated Glomerular Filt Rate 57; Glucose 89 mg/dL (65-110); Potassium 3.9 mmol/L (3.4-5.0); Sodium 140 mmol/L (137-145)
--- NOTE | 2022-01-19 19:58 | ED.RECABL ---
HPI - Recheck/Abnormal Lab/Rx General Chief Complaint: Recheck/Abnormal Lab/Rx Stated Complaint: Abnormal Chest x-ray Time Seen by Provider: 01/19/22 19:16 Source: patient Mode of arrival: ambulatory Limitations: no limitations History of Present Illness HPI narrative: Patient is a 56-year-old female sent here by her PCP due to abnormal chest x-ray . Patient states that she is been having cough, productive, clear yellowish sputum, for the past few days and was told she might possibly have pneumonia and to go to the emergency room. Patient states that she is always short of breath and it is nothing new, due to Covid pneumonia which exacerbated her COPD/asthma, requiring her to be on on 4 L of oxygen on exertion at home. Patient denies any chest pain, abdominal pain, nausea, vomiting diaphoresis, fever or chills. Related Data Home Medications Medication Instructions Recorded Confirmed losartan 50 mg tablet 100 mg PO DAILY 10/21/19 01/11/22 montelukast 10 mg tablet 10 mg PO DAILY 10/21/19 01/11/22 pravastatin 20 mg PO DAILY 01/26/20 01/11/22 fenofibrate nanocrystallized 48 mg 48 mg PO DAILY 07/28/20 01/11/22 tablet loratadine 10 mg tablet 10 mg PO DAILY PRN 07/28/20 01/11/22 celecoxib 200 mg PO BID PRN 01/22/21 01/11/22 folic acid 2 - 4 mg PO DAILY 01/22/21 01/11/22 leflunomide 20 mg PO DAILY 01/22/21 01/11/22 levothyroxine [Synthroid] 88 mcg PO DAILY 01/22/21 01/11/22 spironolactone 50 mg PO DAILY 01/22/21 01/11/22 ondansetron HCl 4 mg tablet 4 mg PO BID PRN tablet 04/21/21 01/11/22 metformin 500 mg PO BID 10/19/21 01/11/22 tramadol 50 mg PO TID PRN 10/19/21 01/11/22 diltiazem HCl 120 mg 120 mg PO DAILY 12/01/21 01/11/22 capsule,extended release 24 hr fluticasone propionate 50 2 spray INTRANASAL DAILY g 12/15/21 01/11/22 mcg/actuation nasal spray,suspension Saccharomyces boulardii [Florastor] 250 mg PO BID 01/11/22 01/11/22 cholecalciferol (vitamin D3) 50 mcg PO DAILY 01/11/22 01/11/22 clarithromycin 500 mg PO Q12H 01/11/22 01/11/22 cyclosporine 1 drp EACH EYE Q12H PRN 01/11/22 01/11/22 dexamethasone 1 mg PO HS 01/11/22 01/11/22 diazepam 2 mg PO BID PRN 01/11/22 01/11/22 fluconazole 150 mg PO DAILY 01/11/22 01/11/22 golimumab [Simponi ARIA] 100 mg IV ONCE 01/11/22 01/11/22 guaifenesin [Mucinex] 600 mg PO BID 01/11/22 01/11/22 hydroxychloroquine [Plaquenil] 200 mg PO DAILY 01/11/22 01/11/22 ipratropium bromide 0.5 mg INHALATION Q4-5H 01/11/22 01/11/22 levofloxacin [Levaquin] 750 mg PO DAILY 01/11/22 01/11/22 loteprednol etabonate [Alrex] 1 drp EACH EYE QID 01/11/22 01/11/22 meclizine [Antivert] 25 mg PO BID PRN 01/11/22 01/11/22 prednisone 2.5 mg PO DAILY 01/11/22 01/11/22 semaglutide [Ozempic] 0.25 mg SUBCUT WEEKLY 01/11/22 01/11/22 valacyclovir [Valtrex] 1,000 mg PO DAILY 01/11/22 01/11/22 Allergies Allergy/AdvReac Type Severity Reaction Status Date / Time amoxicillin Allergy Severe Hives Verified 01/19/22 18:25 fentanyl Allergy Severe Difficulty Verified 01/19/22 18:25 Breathing peach Allergy Severe Itching Verified 01/19/22 18:25 Sulfa (Sulfonamide Allergy Severe Hives Verified 01/19/22 18:25 Antibiotics) amitriptyline AdvReac Mild Unknown Verified 01/19/22 18:25 Review of Systems Review of Systems: All systems reviewed & are unremarkable except as noted in HPI and below Constitutional: Constitutional: Denies body ache(s), Denies chills, Denies excessive sweating, Denies fatigue, Denies fever(s), Denies headache(s), Denies lethargy, Denies malaise, Denies weakness and Denies weight loss Eyes: Eyes: Denies blurry vision, Denies change in vision and Denies loss of vision ENT: Denies dizziness, Denies ear discharge, Denies headache(s), Denies lip swelling, Denies epistaxis, Denies nasal congestion, Denies neck pain, Denies throat swelling and Denies tongue swelling Cardiovascular: Cardiovascular: Denies chest pain, Denies chest pain at rest, Denies chest pain with activity, Denies diaphoresis, Denies rapid
== END 2022-01-19 22:54 | disposition home or self-care (01) ==
PROVIDERS: Emergency Medicine; Emergency Provider Emergency Medicine; PCP Internal Medicine
DX: J20.9 Acute bronchitis, unspecified (principal); J44.9 Chronic obstructive pulmonary disease, unspecified; K21.9 Gastro-esophageal reflux disease without esophagitis; G47.30 Sleep apnea, unspecified; E03.9 Hypothyroidism, unspecified; M06.9 Rheumatoid arthritis, unspecified
CPT/HCPCS: 36415; 71250; 80053; 85025; 93005; 99284

== ENCOUNTER 2022-04-29 09:30 | Outpatient (RCR) | payer BC, OTHER, SELFPAY | END 2022-04-29 23:59 | disposition home or self-care (01) | LOC: ANHCPREHAB 09:30 | PROVIDERS: PCP Internal Medicine; Visit Provider Internal Medicine Pulmonary Disease | DX: J44.9 Chronic obstructive pulmonary disease, unspecified (principal); J96.01 Acute respiratory failure with hypoxia; J12.82 Pneumonia due to coronavirus disease 2019 | CPT/HCPCS: 94625; G0239 ==

== ENCOUNTER 2022-05-01 11:28 | Emergency (ER) | payer BC, OTHER, SELFPAY ==
--- NOTE | ~2022-05-01 | XR_ITS ---
XR chest 2V DATE: 05/01/2022 11:54 INDICATION: Shortness of breath. History of COPD and asthma. TECHNIQUE: AP and lateral views COMPARISON: 01/19/2022 CT chest 11/26/2021 PA and lateral chest FINDINGS: There is increased right diaphragmatic elevation since 11/26/2021, and right basilar infiltr ate and/or atelectasis. The lungs otherwise appear clear. Normal heart size. Aortic arch calcification, mild aortic unfolding. No pulmonary vascular congestion or pneumothorax. No definite pleural effusion is noted. Mild thoracolumbar levoscoliosis. Osteopenia. IMPRESSION: Increased elevation right diaphragm and persistent right basilar infiltrate and/atelectas is since 11/26/2021 Reviewed, dictated and finalized at location A. IMPRESSION: Increased elevation right diaphragm and persistent right basilar in filtrate and/atelectasis since 11/26/2021
[2022-05-01 11:30] VITALS: BP 152/91; PULSE 95; RESP 20; TEMP 36.7; O2SAT 97
--- NOTE | 2022-05-01 11:43 | ECG_ITS ---
Measurements Intervals [place] Rate: 105 P: 38 HI: 162 QRS: 28 QRSD: 82 T: 11 QT: 320 QTc: 424 Interpretive Statements SINUS TACHYCARDIA DELAYED PRECORDIAL R/S TRANSITION BORDERLINE ST-T WAVE ABNORMALITY- LAT/HIGH LAT LEADS BASELINE ARTIFACT- I, III, AVR, AVL, AVF, V5-V6 BORDERLINE ECG Electronically Signed On 05-01-2022 17:21:13 CDT by Jake Cassidy D.O.
[2022-05-01 11:57] LABS: Basophils Absolute Auto 0.1 K/mm3 (0.0-0.1); Basophils Percent Auto 1.1 % (0.2-1.2); Eosinophils Percent Auto 0.4 % (0-4.4); Hematocrit 40.4 % (37.0-47.0); Immature Granulocyte Absolute 0.01 K/mm3 (0.00-0.031); Immature Granulocyte Percent A 0.2 % (0-0.5); Lymphocytes Percent Auto 18.9 % (18.3-44.2); Mean Corpuscular HGB Conc 32.2 g/dl (32-36); Mean Corpuscular Hemoglobin 28.4 pg (26-34); Mean Corpuscular Volume 88.2 fl (80-100); Mean Platelet Volume 11.3 fl (7.4-10.4); Neutrophils Absolute Auto 2.8 K/mm3 (1.3-6.7); Neutrophils Percent Auto 58.4 % (45.5-73.1); Platelet Count Result 147 k/mm3 (150-375); Red Blood Count 4.58 M/mm3 (4.2-5.4); Red Cell Distribution Width 15.6 % (11.5-14.5); White Blood Count 4.8 K/mm3 (4.5-10.0)
[2022-05-01 12:04] LABS: Alanine Aminotransferase 24 U/L (6-35); Alkaline Phosphatase 72 U/L (38-126); Anion Gap 4 mmol/L (8-16); Aspartate Amino Transferase 31 U/L (14-36); Bilirubin,Total 0.4 mg/dL (0.2-1.3); Blood Urea Nitrogen 13 mg/dL (7-17); Carbon Dioxide 28 mmol/L (22-30); Chloride 106 mmol/L (98-107); Estimated CRCL calculation 69 ml/min; Estimated Glomerular Filt Rate 57; Glucose 93 mg/dL (65-110); Potassium 3.6 mmol/L (3.4-5.0); Sodium 138 mmol/L (137-145)
[2022-05-01] MEDS: ALBUTEROL SULFATE NEB 2.5 MG/3 ML INH 15 MG INHALATION (12:20)
--- NOTE | 2022-05-01 12:26 | ED.SOB ---
HPI - SOB/Dyspnea General Chief Complaint: Shortness of Breath/Dyspnea Stated Complaint: difficulty breathing Time Seen by Provider: 05/01/22 11:55 Source: patient History of Present Illness HPI Narrative: Patient presents with shortness of breath. Reports a history of COPD and immunodeficiency and reports he is prone to pneumonias. The past couple days she had increased shortness of breath and cough. She also reports subjective fevers over this time and congestion. Reports her daughter listened to her lungs and heard a squeaky door and was concerned given her frequent pneumonia so she came to the ER for further evaluation. Reports she normally wears 4 L nasal cannula with physical activity. Denies any focal areas of pain such as chest pain belly pain or back pain. Denies any nausea vomiting or diaphoresis Related Data Home Medications Medication Instructions Recorded Confirmed losartan 50 mg tablet 100 mg PO DAILY 10/21/19 03/31/22 montelukast 10 mg tablet 10 mg PO DAILY 10/21/19 03/31/22 pravastatin 20 mg tablet 20 mg PO DAILY 01/26/20 03/31/22 fenofibrate nanocrystallized 48 mg 48 mg PO DAILY 07/28/20 03/31/22 tablet loratadine 10 mg tablet 10 mg PO DAILY PRN Congestion 07/28/20 03/31/22 celecoxib 200 mg capsule 200 mg PO BID PRN Anxiety 01/22/21 03/31/22 folic acid 1 mg tablet 2 - 4 mg PO DAILY 01/22/21 03/31/22 leflunomide 20 mg tablet 20 mg PO DAILY 01/22/21 03/31/22 levothyroxine 88 mcg tablet 88 mcg PO DAILY 01/22/21 03/31/22 (Synthroid) spironolactone 50 mg tablet 50 mg PO DAILY 01/22/21 03/31/22 ondansetron HCl 4 mg tablet 4 mg PO BID PRN Nausea 04/21/21 03/31/22 metformin 500 mg tablet,extended 500 mg PO BID 10/19/21 03/31/22 release 24 hr tramadol 50 mg tablet 50 mg PO TID PRN Pain 10/19/21 03/31/22 diltiazem HCl 120 mg 120 mg PO DAILY 12/01/21 03/31/22 capsule,extended release 24 hr fluticasone propionate 50 2 spray intranasal DAILY 12/15/21 03/31/22 mcg/actuation nasal spray,suspension Saccharomyces boulardii 250 mg 250 mg PO BID 01/11/22 03/31/22 capsule (Florastor) cholecalciferol (vitamin D3) 50 50 mcg PO DAILY 01/11/22 03/31/22 mcg (2,000 unit) capsule clarithromycin 500 mg tablet 500 mg PO Q12H 01/11/22 03/31/22 cyclosporine 0.05 % eye drops 1 drp EACH EYE Q12H PRN Dry Eyes 01/11/22 03/31/22 dexamethasone 1 mg tablet 1 mg PO HS 01/11/22 03/31/22 diazepam 2 mg tablet 2 mg PO BID PRN Acid Reflux 01/11/22 03/31/22 fluconazole 150 mg tablet 150 mg PO DAILY 01/11/22 03/31/22 golimumab 12.5 mg/mL intravenous 100 mg IV ONCE 01/11/22 03/31/22 solution (Simponi ARIA) guaifenesin 600 mg tablet, 600 mg PO BID 01/11/22 03/31/22 extended release 12 hr (Mucinex) hydroxychloroquine 200 mg tablet 200 mg PO DAILY 01/11/22 03/31/22 (Plaquenil) ipratropium bromide 0.02 % 0.5 mg inhalation Q4-5H 01/11/22 03/31/22 solution for inhalation levofloxacin 750 mg tablet 750 mg PO DAILY 01/11/22 03/31/22 loteprednol etabonate 0.2 % eye 1 drp EACH EYE QID 01/11/22 03/31/22 drops,suspension (Alrex) meclizine 25 mg tablet 25 mg PO BID PRN Dizziness 01/11/22 03/31/22 prednisone 2.5 mg tablet 2.5 mg PO DAILY 01/11/22 03/31/22 semaglutide 0.25 mg or 0.5 mg (2 0.25 mg subcut WEEKLY 01/11/22 03/31/22 mg/1.5 mL) subcutaneous pen injector (Ozempic) valacyclovir 1 gram tablet 1,000 mg PO DAILY 01/11/22 03/31/22 (Valtrex) Allergies Allergy/AdvReac Type Severity Reaction Status Date / Time amoxicillin Allergy Severe Hives Verified 03/31/22 12:53 fentanyl Allergy Severe Difficulty Verified 03/31/22 12:53 Breathing peach Allergy Severe Itching Verified 03/31/22 12:53 Sulfa (Sulfonamide Allergy Severe Hives Verified 03/31/22 12:53 Antibiotics) amitriptyline AdvReac Mild Unknown Verified 03/31/22 12:53 Review of Systems Review of Systems: CONSTITUTIONAL: Denies fever, chills, or sweats. EYES: Denies visual changes, redness, or discharge. ENT: Denies rhinorrhea, congestion, sore throat, or
[2022-05-01] MEDS: IPRATROPIUM BR 0.02% INH SOLN 0.5 MG/2.5 ML VIAL 1.5 MG INHALATION (12:32)
[2022-05-01 12:37] LABS: Giant Platelets Present; Platelet Estimate Adequate (Adequate)
[2022-05-01 12:56] VITALS: O2SAT 98
[2022-05-01 14:13] LABS: SARS-CoV-2 RNA PCR Positive
[2022-05-01] MEDS: predniSONE 20 MG TABLET 40 MG PO (14:23)
[2022-05-01] MEDS: levoFLOXacin 750 MG TABLET PO (14:23)
[2022-05-01 14:27] VITALS: BP 132/78; PULSE 106; RESP 18; O2SAT 100
== END 2022-05-01 14:28 | disposition home or self-care (01) ==
PROVIDERS: Emergency Medicine; Emergency Provider Emergency Medicine; PCP Internal Medicine
DX: R06.00 Dyspnea, unspecified (principal); Z20.822 Contact with and (suspected) exposure to COVID-19; J44.9 Chronic obstructive pulmonary disease, unspecified; K21.9 Gastro-esophageal reflux disease without esophagitis; E03.9 Hypothyroidism, unspecified; E66.01 Morbid (severe) obesity due to excess calories; Z68.42 Body mass index [BMI] 45.0-49.9, adult; G47.33 Obstructive sleep apnea (adult) (pediatric); R73.03 Prediabetes; E55.9 Vitamin D deficiency, unspecified; Z87.01 Personal history of pneumonia (recurrent); Z86.16 Personal history of COVID-19; Z87.891 Personal history of nicotine dependence; Z79.84 Long term (current) use of oral hypoglycemic drugs; R00.0 Tachycardia, unspecified; R94.31 Abnormal electrocardiogram [ECG] [EKG]
CPT/HCPCS: 36415; 71046; 80053; 85025; 93005; 94640; 99284; A9270; C9803; J7512; U0003; U0005

== ENCOUNTER 2022-05-10 10:01 | Inpatient (IN) | payer BC, OTHER, SELFPAY ==
[2022-05-10] VITALS (7 sets, daily range): BP systolic 128–156; BP diastolic 79–89; PULSE 100–118; RESP 23–29; TEMP 36.3–36.4; O2SAT 94–99; BMI 48.8
--- NOTE | 2022-05-10 | ECHO_ITS ---
Patient Info Name: Karen Em Age: 57 years : 1965 Gender: Female Ht: 63 in Wt: 270 lbs BSA: 2.41 m2 HR: 115 bpm BP: 128 / 79 mmHg Heart Rhythm: Sinus Rhythm, Tachycardia Technical Quality: Fair Exam Date: 05/10/2022 4:19 PM Exam Location: [facility] Card Pulmonary Patient Status: Inpatient Admit Date: 05/10/2022 Staff Ordering Physician: Farrukh Sotomayor [employer] Manager: Yenifer Yadav RDCS Attending Provider: Donald Luciano MD Referring Physician: Bran AVELAR; Exam Type: CA echo doppler color flow Study Info Indications - SHORT OF BREATH Complete two-dimensional, color flow and Doppler transthoracic echocardiogram is performed. Summary 1. Complete two-dimensional, color flow and Doppler transthoracic echocardiogram is performed. 2. Technically difficult study with limited views despite definity echo contrast enhancement. 3. Left ventricular chamber dimension is normal. 4. Left ventricular systolic function is hyperdynamic, estimated at >70%. 5. There is no increased left ventricular wall thickness. 6. The left ventricular diastolic function is grade I diastolic dysfunction. 7. There is trace tricuspid valve regurgitation. 8. No pulmonary hypertension, estimated pulmonary arterial systolic pressure is 15 mmHg. Left Ventricle Technically difficult study with limited views despite definity echo contrast enhancement. Left ventricular chamber dimension is normal. Left ventricular systolic function is hyperdynamic, estimated at >70%. There is no increased left ventricular wall thickness. The left ventricular diastolic function is grade I diastolic dysfunction. Right Ventricle Right ventricular chamber dimension is normal. Right ventricular systolic function is normal. Left Atria Left atrial chamber dimension is normal. Right Atria Right atrial chamber dimension is normal. Aortic Valve The aortic valve is not well visualized. There is no aortic valve stenosis. There is no aortic valve regurgitation. Pulmonic Valve The pulmonic valve is not well visualized. Mitral Valve The mitral valve has normal leaflets. There is trace mitral valve regurgitation. The mitral valve annulus is mildly calcified. Tricuspid Valve The tricuspid valve leaflets are not well visualized. There is trace tricuspid valve regurgitation. No pulmonary hypertension, estimated pulmonary arterial systolic pressure is 15 mmHg. Pericardium/Pleural The pericardium appears epicardial fat pad. There is small pericardial effusion. Aorta The aortic root size at the sinus of Valsalva is normal. There is mild aortic atherosclerosis. Left Ventricular Outflow Tract Name Value Normal LVOT 2D LVOT Diameter 1.9 cm LVOT Doppler LVOT Peak Gradient 6 mmHg LVOT Mean Gradient 3 mmHg LVOT VTI 19 cm LVOT VTI/AV VTI Ratio 0.9 LVOT Stroke Volume 56 ml LVOT CO 5.8 l/min LVOT CI 2.4 l/min/
--- NOTE | ~2022-05-10 | XR_ITS ---
XR chest PICC line 05/11/2022 19:13 Indication: PICC line verification Procedure: AP portable chest Comparison: Comparison to multiple prior studies sequentially, with oldest reviewed study dated 11/26. Findings: Interval placement of left subclavian PICC line tip in the SVC. Right sided PICC line is co iled in the axilla. There is bilateral airspace disease, most confluent in the right lung base. No pl eural effusion or pneumothorax. Impression: 1: Left subclavian PICC line tip in the CC. 2: Bilateral airspace disease which may represent pneumonia and/or edema. Reviewed, dictated and finalized at location A. Impression: 1: Left subclavian PICC line tip in the CC. 2: Bilateral airspace disease which may represent pneumonia and/or edema.
--- NOTE | ~2022-05-10 | CT_ITS ---
EXAMINATION: CTA chest PE protocol DATE: 05/10/2022 12:20 INDICATION: Shortness of breath. Elevated d-dimer. TECHNIQUE: Computed tomography (CT) pulmonary angiogram of the chest was performed with 100 mL Omnipa que-350 intravenous contrast. Additional 3D reconstructions utilizing coronal maximum intensity proje ction (MIP) were performed. Automated exposure control and iterative reconstruction technique were em ployed. The dose-length product was 935.23 mGy-cm. COMPARISON: CT dated 01/19/2022 FINDINGS: Suboptimal contrast opacification of the pulmonary arteries. There is mild streak artifact from dense contrast in the superior vena cava and right atrium. Mild scattered respiratory motion artifact. Alt dale this decreases sensitivity in the segmental and more significantly in the subsegmental pulmonar y arteries. No definitive pulmonary embolism. Patchy airspace opacities with surrounding groundglass opacity in the right upper lobe consistent with pneumonia. Chronic elevation the right hemidiaphragm with associated volume loss with right middle lobe collapse and partial collapse of the right lower l obe with relatively uniform parenchymal enhancement of the collapsed portions of the lung. Minimal di scoid atelectasis at the lingula. A few bilateral small calcified pulmonary nodules along with calcif ied left hilar lymph nodes and multiple splenic calcific lesions consistent with old granulomatous di sease. No pulmonary edema or pleural effusion. Heart size is normal. No pericardial effusion. Thoraci c aorta is normal in caliber with no dissection. No pathologically enlarged thoracic partially visual ized at least 5.3 cm left renal cyst. lymphadenopathy. Mild thoracic levocurvature with moderate spon dylosis. IMPRESSION: 1. No evident pulmonary embolism although sensitivity is decreased in the segmental and significantly in the subsegmental pulmonary arteries due to primarily to suboptimal contrast opacification. 2. Patchy airspace opacities in the right upper lobe most consistent with pneumonia. 3. Chronic elevation the right hemidiaphragm and associated volume loss with right middle lobe collap se and partial collapse of the right lower lobe. Reviewed, dictated and finalized at location B. IMPRESSION: 1. No evident pulmonary embolism although sensitivity is decreased in the segme ntal and significantly in the subsegmental pulmonary arteries due to primarily to suboptimal contrast opacification. 2. Patchy airspace opacities in the right upper lobe most consistent with pneum onia. 3. Chronic elevation the right hemidiaphragm and associated volume loss with ri ght middle lobe collapse and partial collapse of the right lower lobe.
--- NOTE | ~2022-05-10 | XR_ITS ---
EXAMINATION: XR chest 1V portable DATE: 05/17/2022 05:49 INDICATION: Pneumonia TECHNIQUE: frontal and lateral views of the chest were obtained. COMPARISON: Chest radiograph dated 05/11/2022 FINDINGS: Persistent elevation of the right hemidiaphragm. There is been some improvement in now predominantly linear and bandlike airspace opacities at the right lower lung zone. Unchanged mild linear discoid at electasis/scarring at the left costophrenic angle. No pulmonary edema, pleural effusion or pneumothor ax. The cardiomediastinal silhouette is normal. . Left upper extremity peripherally inserted central venous catheter (PICC) tip at the mid superior vena cava. Cholecystectomy clips in right upper quadr ant. IMPRESSION: 1. Improvement in opacities in the right lower lung zone which could represent atelectasis or pneumon ia. Reviewed, dictated and finalized at location A. IMPRESSION: 1. Improvement in opacities in the right lower lung zone which could represent atelectasis or pneumonia.
--- NOTE | ~2022-05-10 | XR_ITS ---
EXAMINATION: XR chest 1V portable DATE: 05/10/2022 13:44 INDICATION: Shortness of breath. TECHNIQUE: frontal view of the chest was obtained. COMPARISON: Chest CT dated 05/10/2022 FINDINGS: Elevation of the right hemidiaphragm with airspace opacities in the right mid to lower lung zones con sistent with combination of right upper lobe pneumonia, right middle lobe collapse and partial right lower lobe collapse. Minimal linear discoid atelectasis at the left costophrenic angle. No pulmonary edema, pneumothorax or pleural effusion. The cardiomediastinal silhouette is within normal limits for AP technique. IMPRESSION: 1. Elevation of the right hemidiaphragm with airspace opacities in the right mid to lower lung zones which on prior CT appear to correspond to a combination of right upper lobe pneumonia, right middle l obe collapse and partial right lower lobe collapse. Reviewed, dictated and finalized at location B. IMPRESSION: 1. Elevation of the right hemidiaphragm with airspace opacities in the right mi d to lower lung zones which on prior CT appear to correspond to a combination o f right upper lobe pneumonia, right middle lobe collapse and partial right lowe r lobe collapse.
--- NOTE | ~2022-05-10 | XR_ITS ---
XR chest PICC line 05/11/2022 17:56 Indication: PICC line insertion Procedure: AP portable chest Comparison: Comparison to multiple prior studies sequentially, with oldest reviewed study dated 10/2021. Findings: Elevation of the right diaphragm. There is right-sided airspace disease, compatible with pn eumonia. There is a PICC line coiled in the right axilla. Impression: 1: PICC line coiled in the right axilla. 2: Right basilar airspace disease, compatible with pneumonia. Reviewed, dictated and finalized at location A. Impression: 1: PICC line coiled in the right axilla. 2: Right basilar airspace disease, compatible with pneumonia.
--- NOTE | 2022-05-10 10:03 | ECG_ITS ---
Measurements Intervals [place] Rate: 122 P: 48 IA: 161 QRS: 78 QRSD: 91 T: 42 QT: 309 QTc: 440 Interpretive Statements SINUS TACHYCARDIA FREQUENT ATRIAL PREMATURE COMPLEXES POOR R WAVE PROGRESSION, ANTERIOR LEADS BASELINE ARTIFACT- I, II, III, AVR, AVL, AVF ABNORMAL ECG Electronically Signed On 05-10-2022 11:58:54 CDT by Jake Cassidy D.O.
--- NOTE | 2022-05-10 10:17 | ED.SOB ---
HPI - SOB/Dyspnea General Chief Complaint: Shortness of Breath/Dyspnea <oHssein Simms, COOK SHORT ORDER - Last Filed: 05/10/22 14:38> Stated Complaint: short of breath <Hossein Simms, COOK SHORT ORDER - Last Filed: 05/10/22 14:38> Time Seen by Provider: 05/10/22 10:05 <Hossein Simms COOK SHORT ORDER - Last Filed: 05/10/22 14:38> History of Present Illness HPI Narrative: 57-year-old female history of oxygen dependency COPD with immunodeficiency presents the emergency room with ongoing shortness of breath. Patient states that she was seen here in the emergency room last week for shortness of breath and difficulty breathing, and was diagnosed with a COPD exacerbation. Patient was sent home with Levaquin and steroids. Patient was found to be COVID-positive during that ER stay. Reports she was not notified of her COVID status until 2 days later. Patient was seen at her primary care physician's office and was started on a 5-day course of Paxil of it. Patient states her symptoms have worsened following the Paxlovid and Levaquin. Patient attempted to contact her radio operator ground, Dr. Adams, but he was unavailable. Patient states today her shortness of breath has worsened. <Hossein Simms, COOK SHORT ORDER - Last Filed: 05/10/22 14:38> Related Data Home Medications: Home Medications Medication Instructions Recorded Confirmed losartan 50 mg tablet 100 mg PO DAILY 10/21/19 03/31/22 montelukast 10 mg tablet 10 mg PO DAILY 10/21/19 03/31/22 pravastatin 20 mg tablet 20 mg PO DAILY 01/26/20 03/31/22 fenofibrate nanocrystallized 48 mg 48 mg PO DAILY 07/28/20 03/31/22 tablet loratadine 10 mg tablet 10 mg PO DAILY PRN Congestion 07/28/20 03/31/22 celecoxib 200 mg capsule 200 mg PO BID PRN Anxiety 01/22/21 03/31/22 folic acid 1 mg tablet 2 - 4 mg PO DAILY 01/22/21 03/31/22 leflunomide 20 mg tablet 20 mg PO DAILY 01/22/21 03/31/22 levothyroxine 88 mcg tablet 88 mcg PO DAILY 01/22/21 03/31/22 (Synthroid) spironolactone 50 mg tablet 50 mg PO DAILY 01/22/21 03/31/22 ondansetron HCl 4 mg tablet 4 mg PO BID PRN Nausea 04/21/21 03/31/22 metformin 500 mg tablet,extended 500 mg PO BID 10/19/21 03/31/22 release 24 hr tramadol 50 mg tablet 50 mg PO TID PRN Pain 10/19/21 03/31/22 diltiazem HCl 120 mg 120 mg PO DAILY 12/01/21 03/31/22 capsule,extended release 24 hr fluticasone propionate 50 2 spray intranasal DAILY 12/15/21 03/31/22 mcg/actuation nasal spray,suspension Saccharomyces boulardii 250 mg 250 mg PO BID 01/11/22 03/31/22 capsule (Florastor) cholecalciferol (vitamin D3) 50 50 mcg PO DAILY 01/11/22 03/31/22 mcg (2,000 unit) capsule clarithromycin 500 mg tablet 500 mg PO Q12H 01/11/22 03/31/22 cyclosporine 0.05 % eye drops 1 drp EACH EYE Q12H PRN Dry Eyes 01/11/22 03/31/22 dexamethasone 1 mg tablet 1 mg PO HS 01/11/22 03/31/22 diazepam 2 mg tablet 2 mg PO BID PRN Acid Reflux 01/11/22 03/31/22 fluconazole 150 mg tablet 150 mg PO DAILY 01/11/22 03/31/22 golimumab 12.5 mg/mL intravenous 100 mg IV ONCE 01/11/22 03/31/22 solution (Simponi ARIA) guaifenesin 600 mg tablet, 600 mg PO BID 01/11/22 03/31/22 extended release 12 hr (Mucinex) hydroxychloroquine 200 mg tablet 200 mg PO DAILY 01/11/22 03/31/22 (Plaquenil) ipratropium bromide 0.02 % 0.5 mg inhalation Q4-5H 01/11/22 03/31/22 solution for inhalation levofloxacin 750 mg tablet 750 mg PO DAILY 01/11/22 03/31/22 loteprednol etabonate 0.2 % eye 1 drp EACH EYE QID 01/11/22 03/31/22 drops,suspension (Alrex) meclizine 25 mg tablet 25 mg PO BID PRN Dizziness 01/11/22 03/31/22 prednisone 2.5 mg tablet 2.5 mg PO DAILY 01/11/22 03/31/22 semaglutide 0.25 mg or 0.5 mg (2 0.25 mg subcut WEEKLY 01/11/22 03/31/22 mg/1.5 mL) subcutaneous pen injector (Ozempic) valacyclovir 1 gram tablet 1,000 mg PO DAILY 01/11/22 03/31/22 (Valtrex) <Hossein Simms, COOK SHORT ORDER - Last Filed: 05/10/22 14:38> Allergies/Adverse Reactions: Allergies Allergy/AdvReac Type Severity Reaction Status Date / Time
[2022-05-10] MEDS: IPRATROPIUM BR 0.02% INH SOLN 0.5 MG/2.5 ML VIAL INHALATION ×3 (10:48→11:05)
[2022-05-10] MEDS: ALBUTEROL SULFATE NEB 2.5 MG/3 ML INH INHALATION ×3 (10:48→11:05)
[2022-05-10 10:52] LABS: Basophils Percent Auto 0.3 % (0.2-1.2); Eosinophils Percent Auto 0.1 % (0-4.4); Hematocrit 45.2 % (37.0-47.0); Hemoglobin 14.3 g/dL (12.0-15.0); Immature Granulocyte Absolute 0.05 K/mm3 (0.00-0.031); Immature Granulocyte Percent A 0.4 % (0-0.5); Lymphocytes Absolute Auto 1.01 K/mm3 (0.9-3.2); Mean Corpuscular HGB Conc 31.6 g/dl (32-36); Mean Corpuscular Hemoglobin 28.3 pg (26-34); Mean Corpuscular Volume 89.3 fl (80-100); Mean Platelet Volume 11.2 fl (7.4-10.4); Monocytes Percent Auto 8.2 % (2.6-8.5); Neutrophils Absolute Auto 10.5 K/mm3 (1.3-6.7); Platelet Count Result 180 k/mm3 (150-375); Red Blood Count 5.06 M/mm3 (4.2-5.4); Red Cell Distribution Width 15.7 % (11.5-14.5); White Blood Count 12.6 K/mm3 (4.5-10.0)
[2022-05-10 11:02] LABS: Alanine Aminotransferase 19 U/L (6-35); Albumin Level 4.1 g/dL (3.5-5.1); Alkaline Phosphatase 83 U/L (38-126); Anion Gap 8 mmol/L (8-16); Aspartate Amino Transferase 25 U/L (14-36); Bilirubin,Total 0.7 mg/dL (0.2-1.3); Blood Urea Nitrogen 15 mg/dL (7-17); Calcium 9.2 mg/dL (8.4-10.2); Carbon Dioxide 25 mmol/L (22-30); Chloride 106 mmol/L (98-107); Estimated CRCL calculation 76 ml/min; Estimated Glomerular Filt Rate > 60; Glucose 104 mg/dL (65-110); Lactic Acid Reflex 3.3 mmol/L (0.7-2.0); Potassium 3.6 mmol/L (3.4-5.0); Sodium 139 mmol/L (137-145)
[2022-05-10 11:13] LABS: Troponin I < 0.012 ng/mL (0.000-0.034)
[2022-05-10 11:28] LABS: D Dimer 0.58 ug/mL (<0.48)
[2022-05-10 11:58] LABS: Alveolar/Arterial O2 Gradient 98.1 mmHg; Base Excess ABG -1.4 mEq/l (+/-2.0); Device NASAL CANNULA; Fractional Inspired Oxygen 28 %; HCO3 ABG 20.9 mEq/l (22.0-26.0); Modified Allen's Test Pass; Oxygen Content ABG 18.2 %vol (16.0-22.0); Oxygen Saturation ABG 94.9 % (95.0-100.0); Oxyhemoglobin 91.9 % THb (90.0-100.0); PCO2 ABG 28.8 mmHg (35.0-45.0); PO2 ABG 67.6 mmHg (80.0-100.0); PO2 FiO2 Ratio Arterial Blood 2.41 %; Site Drawn RIGHT BRACHIAL; Total Hemoglobin 14.1 g/dL (12.0-18.0); pH ABG 7.478 (7.350-7.450)
[2022-05-10] MEDS: SODIUM CHLORIDE 0.9% IV 1,000 ML 999 ML IV CONT (13:20)
[2022-05-10 13:50] LABS: Reflex Lactic Acid Yes or No Add Lactic
--- NOTE | 2022-05-10 14:11 | PM.IMHP ---
H&P: HPI History of Present Illness Date/Time: 05/10/22 14:11 Chief Complaint: shortness of breath Narrative: Patient is a 57-year-old female with a past medical history LISA, asthma, BPPV, IgG deficiency, morbid obesity, YOON, RA presented to the ED with complaints of increasing and worsening shortness of breath. Patient was here last Monday for the same symptoms and was given prednisone and Levaquin which she did complete the course of. She went to set key driver appointment and was told that she was COVID positive as of the last visit and they had prescribed her a Z-John. patient and her are present and patient's stated that she has been very tired and weak could not breathe and started having chills. She has also had a cough that has been producing a green, [place], brown sputum. It was also mentioned that she has been having hard time catching her breath and that she has good days and bad days. Patient has been weak. The stated that she has not been getting any better. She does cough when she coughs she experiences pleuritic chest pain. D-dimer was elevated at 0.58. CTA was performed and showed patchy airspace opacities in the right upper lobe most consistent with pneumonia. Patient does wear oxygen at home and denies being around any sick contacts. It was indurated the patient is immunocompromised and does do IgG infusions at home. She has had a poor appetite. It was also noted that she has had no taste since she was diagnosed with COVID back in December of 2020. Her biggest complaint was the cough and stated that when she starts to cough it is very hard to get her cough to subside which then causes her to go into a full on panic attack. She denies any falls. She also stated that she has been very lightheaded and dizzy lately however she denies any visual changes or hearing changes or headaches. Lactic acid was also elevated at 3.3 and patient was given 1 L of fluids. Lungs are very rhonchus. Patient is requesting a pulmonology consult since she sees Dr. Adams. Patient denies any abnormal swelling of her bilateral lower extremities. She also has experienced some vomiting and nausea since Monday. Patient has a slew of medical history. Her and her have iterated that she is not diabetic even though she is on diabetic medications due to steroid use and her increase of glucose. They also stated that her veins will collapse and she needs a PICC line if she can being here more than 2 days. They are also very upset that she is back in normal never called her about the COVID results when she was here last Monday. She does follow with Dr. Franco and they are concerned because her IgG infusion should be in for Fridays dose and if she is going to be here longer than that they need to call to have them bring up the IgG Infusion so that she can receive her schedule dose. Review of Systems Review of Systems: All systems reviewed & are unremarkable except as noted in HPI and below [facility] Past Medical History Medical History Acute respiratory failure with hypoxia LISA (acute kidney injury) (~12/2020) Aspergillus Asthma with COPD PFTs 05/10/2020 BPPV (benign paroxysmal positional vertigo) GERD (gastroesophageal reflux disease) Hemoptysis Hypothyroid IgG deficiency Morbid obesity Necrotizing pneumonia (~01/2021) MSSA YOON (obstructive sleep apnea) With CPAP of 7 Pneumonia due to COVID-19 virus (~12/2020) Prediabetes Rheumatoid arthritis Staphylococcus aureus pneumonia (~12/2019) SVT (supraventricular tachycardia) Vitamin D deficiency Surgical History Surgical History Delivery by section H/O lateral meniscus repair of right knee H/O tubal ligation History of hysterectomy History of tonsillectomy Hx of cholecystectomy Family History Family History (Reviewed 05/10/22 @ 14:27 by EFREN Pride
--- NOTE | 2022-05-10 15:32 | ADMGEN ---
This patient, Karen Em, was admitted to [facility] Surg Room 310-01 at 1515. Patient/family oriented to hospital policies and general routines including ID bracelet, bed and alarms, visiting hours, pain management, procedures, bathroom and other care routines, personal items, smoking policy, room service/diet, and visiting hours. Information on how to activate the Rapid Response Team has been discussed. Patient/Family are encouraged to report perceived risks to care and to ask questions if they do not understand what they are told or what they should do.
--- NOTE | 2022-05-10 15:33 | PM.CNPUL ---
Assessment and Plan Assessment and plan (1) Acute and chronic respiratory failure with hypoxia: Code(s): J96.21 - Acute and chronic respiratory failure with hypoxia Status: Acute Assessment and Plan: This is due to COVID pneumonia. She is on O2 at home with exertion, 2 L/min now with worsening hypoxemia, no CO2 retention; CXR is not as impressive as expected as the right hemidiaphragm is elevated, there is infiltrate in the right base and she has chronic atelectasis in the right, RML and RLL. She has an elevated WBC, increased heart rate, increased resp rate, Lactic acid 3.3, meets criteria for sepsis, and received 1 L IVF in ED. She has co-morbidities that increase her risk for poor outcome with COVID; IgG deficiency, elevated BMI 48.8, steroid induced hyperglycemia, RA which is immune suppressing and on plaquenil from her contract negotiation specialist, asthma. This is her second episode of COVID, initial event Dec 2020. She was in cardiopulmonayr rehab prior to this event, and was actively losing weight. (2) COVID-19: Code(s): U07.1 - COVID-19 Status: Acute Assessment and Plan: (+) COVID serology on 05/01/2022; she was treated with azithromycin from Dr Moody at her visit a few days after her ER visit. She already had COVID December 2020, is followed in our clinic with Dr Maxwell. Initial serology (+) for COVID 01/22/2021, over a year ago. Worsening dyspnea, saturation, increased inflammatory markers, I discussed with Dariel Sotomayor NP; there are not guidelines for her particular case. I recommend remdesivir and dexamethasone for COVID pneumonia as she has multiple high risk conditions for adverse outcomes; O2 to maintain her saturation; she uses CPAP at home, and I suggested BiPAP here, however she has a special nasal pillow mask at home, and wants to wait to get it tomorrow when her visits so she does not have to use a fullface mask now. close f/u of labs, images, vital signs. 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 Normally has a nurse come to administer; this situation is different as she has sepsis associated with COVID infection, and this increase the risk of adverse reactions. Her says that she has to use it, it is an issue of coverage by insurance. I am concerned about her current situation with possibility of causing more harm than good. Will discuss with her rheum and oncologist tomorrow. (4) YOON (obstructive sleep apnea): Code(s): G47.33 - Obstructive sleep apnea (adult) (pediatric) Status: Acute Assessment and Plan: She is complaint with CPAP at home, last download on March 31, 2022 showed she used CPAP 7 cm for 98.9% of the nights > 4 hours, avg 7 hours 52 min, AHI 0.6, no air leak. Her CPAP is at home, will deliver May 11. She does not want to use hospital device. Her nasal pillow is more comfortable. If she worsens as far as oxygenation, she may need hospital device with higher settings. (5) Asthma: Qualifiers: Asthma complication type: unspecified Asthma persistence: unspecified Asthma severity: unspecified severity Qualified Code(s): J45.909 - Unspecified asthma, uncomplicated Code(s): J45.909 - Unspecified asthma, uncomplicated Status: Chronic Assessment and Plan: Long standing asthma diagnosis, asthma control test ACT score has not been well controlled on recent office visits, and she still had nocturnal awakenings due to shortness of breath. Her asthma symptom
[2022-05-10 16:12] LABS: Lactic Acid 2.2 mmol/L (0.7-2.0)
[2022-05-10 16:25] LABS: Troponin I 0.025 ng/mL (0.000-0.034)
[2022-05-10] MEDS: PERFLUTREN LIPID MICROSPHERES 1.5 ML VIAL DILUTED TO 10 ML TOTAL VOLUME IV PUSH (16:42)
--- NOTE | 2022-05-10 16:42 | IVDEFINITY ---
Prior to administration of IV Definity the patient was educated on the risks and benefits of the imaging enhancing agent including potential adverse side effects. The patient verbalized understanding. Allergies were verified. No exclusion criteria were identified and at least one of the following inclusion criteria were met: 1) physician request, 2) patient technically difficult to image (per the [place] [employer] guidelines of two or more segments not discernable within the apical view), or 3) questionable left ventricular function. ?
[2022-05-10 17:54] LABS: Alanine Aminotransferase 18 U/L (6-35); Estimated CRCL calculation 63 ml/min; Estimated Glomerular Filt Rate 51
[2022-05-10 17:56] LABS: INR 1.1; Prothrombin Time 13.5 Seconds (11.1-14.7)
[2022-05-10] MEDS: REMDESIVIR 200 MG/NS 250 ML 200 MG/250 ML BAG 250 MG IVPB (18:25)
[2022-05-10 19:19] LABS: Appearance Urine Clear (Clear); Bilirubin Urine Negative (Negative); Blood Urine Negative (Negative); Color Urine Yellow (Yellow); Glucose Urine UA Negative (Negative); Ketones Urine Negative (Negative); Leukocyte Esterase Ur Negative LEU/UL (Negative); Nitrate Urine Negative (Negative); Protein Urine Negative (Negative); Urobilinogen Urine 0.2 mg/dL (<2.0); pH Urine 5.5 (5.0-9.0)
[2022-05-10 19:21] LABS: Add Urine Microscopic? NO
[2022-05-10 21:14] LABS: Glucose Point of Care 150 mg/dl (65-105)
[2022-05-10] MEDS: guaiFENesin 12 HR 600 MG TABCR PO (21:35)
[2022-05-10] MEDS: LOTEPREDNOL ETABONATE 0.2% OPH 5 ML SUSP 1 DROP EACH EYE (21:36)
[2022-05-10] MEDS: traMADol HCL (*CRX) 50 MG TABLET PO (21:36)
[2022-05-11] VITALS (7 sets, daily range): BP systolic 110–142; BP diastolic 59–87; PULSE 70–92; RESP 16–26; TEMP 36.2–36.4; O2SAT 95–97
[2022-05-11] MEDS: LEVOTHYROXINE SODIUM 88 MCG TABLET PO (06:17)
[2022-05-11 06:27] LABS: Basophils Percent Auto 0.2 % (0.2-1.2); Hematocrit 40.7 % (37.0-47.0); Hemoglobin 13.1 g/dL (12.0-15.0); Immature Granulocyte Absolute 0.14 K/mm3 (0.00-0.031); Immature Granulocyte Percent A 0.9 % (0-0.5); Lymphocytes Absolute Auto 0.71 K/mm3 (0.9-3.2); Lymphocytes Percent Auto 4.4 % (18.3-44.2); Mean Corpuscular HGB Conc 32.2 g/dl (32-36); Mean Corpuscular Hemoglobin 28.4 pg (26-34); Mean Corpuscular Volume 88.1 fl (80-100); Mean Platelet Volume 11.5 fl (7.4-10.4); Monocytes Absolute Auto 0.7 K/mm3 (0.1-0.6); Monocytes Percent Auto 4.1 % (2.6-8.5); Neutrophils Absolute Auto 14.5 K/mm3 (1.3-6.7); Neutrophils Percent Auto 90.4 % (45.5-73.1); Platelet Count Result 161 k/mm3 (150-375); Red Blood Count 4.62 M/mm3 (4.2-5.4); Red Cell Distribution Width 15.9 % (11.5-14.5)
[2022-05-11 06:32] LABS: INR 1.2; Prothrombin Time 14.7 Seconds (11.1-14.7)
[2022-05-11 06:38] LABS: Alanine Aminotransferase 16 U/L (6-35); Albumin Level 3.5 g/dL (3.5-5.1); Alkaline Phosphatase 69 U/L (38-126); Anion Gap 5 mmol/L (8-16); Aspartate Amino Transferase 18 U/L (14-36); Bilirubin,Total 0.9 mg/dL (0.2-1.3); Blood Urea Nitrogen 14 mg/dL (7-17); Calcium 8.5 mg/dL (8.4-10.2); Carbon Dioxide 26 mmol/L (22-30); Chloride 106 mmol/L (98-107); Estimated CRCL calculation 76 ml/min; Estimated Glomerular Filt Rate > 60; Glucose 129 mg/dL (65-110); Potassium 3.9 mmol/L (3.4-5.0); Sodium 137 mmol/L (137-145)
[2022-05-11 07:23] LABS: Cholesterol 157 mg/dL (0-200); HDL Direct 72 mg/dL; Triglycerides 83 mg/dL (<150)
[2022-05-11 07:25] LABS: Hemoglobin A1C 5.7 % (<5.7)
[2022-05-11 07:33] LABS: NT Pro B Type Natriuretic Pept 507 pg/mL (5-100)
[2022-05-11 07:34] LABS: LDL Cholesterol Direct 54 mg/dL
[2022-05-11 07:42] LABS: Glucose Point of Care 126 mg/dl (65-105)
[2022-05-11] MEDS: guaiFENesin 12 HR 600 MG TABCR PO ×2 (08:04→20:10)
[2022-05-11] MEDS: metFORMIN HCL XR 500 MG TAB.SR.24H PO (08:04)
[2022-05-11] MEDS: MONTELUKAST SODIUM 10 MG TABLET PO (08:04)
[2022-05-11] MEDS: PRAVASTATIN SODIUM 20 MG TABLET PO (08:04)
[2022-05-11] MEDS: LEFLUNOMIDE 20 MG TABLET PO (08:04)
[2022-05-11] MEDS: CHOLECALCIFEROL 1,000 UNITS TABLET 2000 UNITS PO (08:04)
[2022-05-11] MEDS: FENOFIBRATE,MICRONIZED 48 MG TABLET PO (08:04)
[2022-05-11] MEDS: busPIRone HCL 5 MG TABLET PO ×2 (08:04→16:39)
[2022-05-11] MEDS: SPIRONOLACTONE 50 MG TABLET PO (08:04)
[2022-05-11] MEDS: HYDROXYCHLOROQUINE SULFATE 200 MG TABLET PO (08:04)
[2022-05-11] MEDS: FLUTICASONE PROPIONATE 0.05% NA SPR 16 GM BTL (*BKC) 2 SPRAY NASAL (08:05)
[2022-05-11] MEDS: LOSARTAN POTASSIUM 50 MG TABLET 100 MG PO (08:05)
[2022-05-11] MEDS: FLUTICASONE/SALMETEROL 115-21 MCG INHALER 1 PUFF 2 PUFF INHALATION ×3 (08:08→20:50)
[2022-05-11] MEDS: UMECLIDINIUM BROMIDE 62.5 MCG ELLIPTA 1 PUFF INHALATION (08:43)
[2022-05-11] MEDS: LOTEPREDNOL ETABONATE 0.2% OPH 5 ML SUSP 1 DROP EACH EYE ×4 (11:07→20:12)
[2022-05-11] MEDS: traMADol HCL (*CRX) 50 MG TABLET PO (11:10)
[2022-05-11 11:24] LABS: Glucose Point of Care 129 mg/dl (65-105)
--- NOTE | 2022-05-11 15:25 | PC.NURSE ---
Patient IV went bad. Patient stated that she only wants a PICC line so she would rather wait to talk to doctor than get a new IV placed. Notified doctor at 1245, Dr. Westfall stated he would be on the floor to speak with the patient. In the even the doctor would not approve the PICC patient stated she wanted an IV placed in one stick. Waiting to hear back from doctor about what the plan is.
--- NOTE | 2022-05-11 15:58 | P.PNIM_ITS ---
Progress Note: A&P Assessment and Plan (1) Pneumonia: Code(s): J18.9 - Pneumonia, unspecified organism Status: Acute Assessment and Plan: * CTA shows a patchy airspace opacity in the right upper lobe consistent with pneumonia * chest x-ray shows airspace opacities in the right mid and lower lung zones * WBCs elevated 12.6 * azithromycin and ceftriaxone continued * continue neb treatments * sputum and blood culture ordered * trend culture results * adjust therapy to culture findings * could be adjacent to COVID findings * supplemental oxygen wean to maintain saturation greater than 90% * trend SpO2 * ABG shows a pH of 7.478, pCO2 at 28.8, PO2 of 67.6, HC03 of 20.9 and an oxygen saturation of 94.9% on 2 L nasal cannula, indication of respiratory alkalosis On home oxygen 4 L with activity Echo with EF more than 70% grade 1 diastolic dysfunction no pulmonary hypertension. No other valvular abnormality (2) Sepsis: Code(s): A41.9 - Sepsis, unspecified organism Status: Acute Assessment and Plan: * patient meets sepsis criteria with an elevated respiratory rate of 29, leukocytosis of 12.6, tachycardia of heart rate in the 110-120, elevated lactate at 3.3 * infectious source is pneumonia * blood cultures pending * sputum culture pending * urine culture ordered * continue IV ceftriaxone and azithromycin * WBCs 12.6, trend labs * pulmonary consult thank you for your help (3) Morbid obesity with BMI of 45.0-49.9, adult: Code(s): E66.01 - Morbid (severe) obesity due to excess calories; Z68.42 - Body mass index [BMI] 45.0-49.9, adult Status: Acute Assessment and Plan: * patient has a BMI of 48.8 * patient is really not interested in lifestyle changes * patient does take Ozempic which is probably used for weight loss * last A1c was 5.5 * patient is requesting a regular diet as that she is not diabetic * will have dietitian talk to patient (4) COVID-19: Code(s): U07.1 - COVID-19 Status: Acute Assessment and Plan: * patient tested positive on 05/01/2022 * neb treatments * supplemental oxygen wean to maintain a saturation greater than 90% * ABG shows respiratory alkalosis * pulmonary consult * consider remdesivir and dexamethasone * antibiotics for bacterial pneumonia * COVID vaccinated x2 with Pfizer * Antitussives (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 Moody * receives 3 monthly IgG infusions * next IgG infusion is for Monday Consult Dr. moody with regard to this. May need to delay few days until adequately treating bacterial infection for IgG infusion unless he thinks otherwise (6) Hyperlipidemia: Code(s): E78.5 - Hyperlipidemia, unspecified Status: Acute Assessment and Plan: * continue home fenofibrate and pravastatin (7) Hypertension: Code(s): I10 - Essential (primary) hypertension Status: Acute Assessment and Plan: * current blood pressure 156/86 * continue home the tele some 120 p.o. daily, losartan 100 mg p.o. daily * trend blood pressure * adjust therapy as indicated (8) Hypothyroid: Code(s): E03.9 - Hypothyroidism,
--- NOTE | 2022-05-11 15:58 | PM.IMPN ---
Progress Note: A&P Assessment and Plan (1) Pneumonia: Code(s): J18.9 - Pneumonia, unspecified organism Status: Acute Assessment and Plan: CTA shows a patchy airspace opacity in the right upper lobe consistent with pneumonia chest x-ray shows airspace opacities in the right mid and lower lung zones WBCs elevated 12.6 azithromycin and ceftriaxone continued continue neb treatments sputum and blood culture ordered trend culture results adjust therapy to culture findings could be adjacent to COVID findings supplemental oxygen wean to maintain saturation greater than 90% trend SpO2 ABG shows a pH of 7.478, pCO2 at 28.8, PO2 of 67.6, HC03 of 20.9 and an oxygen saturation of 94.9% on 2 L nasal cannula, indication of respiratory alkalosis On home oxygen 4 L with activity Echo with EF more than 70% grade 1 diastolic dysfunction no pulmonary hypertension. No other valvular abnormality (2) Sepsis: Code(s): A41.9 - Sepsis, unspecified organism Status: Acute Assessment and Plan: patient meets sepsis criteria with an elevated respiratory rate of 29, leukocytosis of 12.6, tachycardia of heart rate in the 110-120, elevated lactate at 3.3 infectious source is pneumonia blood cultures pending sputum culture pending urine culture ordered continue IV ceftriaxone and azithromycin WBCs 12.6, trend labs pulmonary consult thank you for your help (3) Morbid obesity with BMI of 45.0-49.9, adult: Code(s): E66.01 - Morbid (severe) obesity due to excess calories; Z68.42 - Body mass index [BMI] 45.0-49.9, adult Status: Acute Assessment and Plan: patient has a BMI of 48.8 patient is really not interested in lifestyle changes patient does take Ozempic which is probably used for weight loss last A1c was 5.5 patient is requesting a regular diet as that she is not diabetic will have dietitian talk to patient (4) COVID-19: Code(s): U07.1 - COVID-19 Status: Acute Assessment and Plan: patient tested positive on 05/01/2022 neb treatments supplemental oxygen wean to maintain a saturation greater than 90% ABG shows respiratory alkalosis pulmonary consult consider remdesivir and dexamethasone antibiotics for bacterial pneumonia COVID vaccinated x2 with Pfizer Antitussives (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 Moody receives 3 monthly IgG infusions next IgG infusion is for Monday Consult Dr. moody with regard to this. May need to delay few days until adequately treating bacterial infection for IgG infusion unless he thinks otherwise (6) Hyperlipidemia: Code(s): E78.5 - Hyperlipidemia, unspecified Status: Acute Assessment and Plan: continue home fenofibrate and pravastatin (7) Hypertension: Code(s): I10 - Essential (primary) hypertension Status: Acute Assessment and Plan: current blood pressure 156/86 continue home the tele some 120 p.o. daily, losartan 100 mg p.o. daily trend blood pressure adjust therapy as indicated (8) Hypothyroid: Code(s): E03.9 - Hypothyroidism, unspecified Status: Acute Assessment and Plan: check TSH in the a.m. continue home levothyroxine 88 mcg daily adjust as indicated (9) Asthma with COPD: Code(s): J44.9 - Chronic obstructive pulmonary disease, unspecified Status: Acute Assessment and Plan: continue home Singulair, Symbicort, albuterol Trend respiratory status more than likely pneumonia not acute COPD exacerbation she does report increased shortness of breath and increased sputum with coughing (10) Rheumatoid arthritis: Qualifiers
[2022-05-11 16:16] LABS: Glucose Point of Care 127 mg/dl (65-105)
[2022-05-11] MEDS: CELECOXIB 200 MG CAPSULE PO (16:39)
--- NOTE | 2022-05-11 18:00 | PC.NURSE ---
1200 Azithromycin dose infused half of the bag before the patient removed the IV. Patient then refused to allow new IV placement until doctor came to floor and ordered a PICC placement. Notified Dr. Westfall that the bag was only half infused and awaiting PICC placement.Due to trouble placing the PICC the other half of the IV antibiotic was not able to be completed. Still waiting for PICC to be placed and verified at 1800.
--- NOTE | 2022-05-11 20:53 | PM.PNPUL ---
Objective Data Vital Signs Vital Signs: Vital Signs - 24 hr 05/11/22 00:00 05/11/22 04:00 05/11/22 04:00 Temperature 36.3 C L 36.2 C L Pulse Rate 86 78 86 Respiratory Rate 20 16 Blood Pressure 118/60 110/59 L Pulse Oximetry 97 95 Oxygen Delivery Oxygen Flow Rate 05/11/22 00:00 05/11/22 08:00 05/11/22 08:00 Temperature 36.3 C L Pulse Rate 92 79 79 Respiratory Rate 22 H Blood Pressure 134/87 Pulse Oximetry 97 Oxygen Delivery Oxygen Flow Rate 05/11/22 12:00 05/11/22 16:00 05/11/22 12:00 Temperature 36.3 C L 36.4 C Pulse Rate 80 72 72 Respiratory Rate 20 20 Blood Pressure 142/80 H 127/66 Pulse Oximetry 97 96 Oxygen Delivery Oxygen Flow Rate 05/11/22 16:00 05/11/22 20:00 05/11/22 20:00 Temperature Pulse Rate 70 72 Respiratory Rate Blood Pressure Pulse Oximetry 96 Oxygen Delivery Nasal Cannula Oxygen Flow Rate 3 Intake/Output Intake/Output: Intake & Output 05/08/22 05/09/22 05/10/22 05/11/22 23:59 23:59 23:59 23:59 Intake Total 670 2455 Output Total 200 1500 Balance 470 955 Meds/Results Medications: Active Medications Generic Name Dose Route Start Last Admin Trade Name Freq PRN Reason Stop Dose Admin Albuterol 2 puff 05/10/22 18:18 Albuterol Sulfate (*Sp) Aerosol 1 Puff INHALATION QID PRN Shortness Of Breath Buspirone HCl 5 mg 05/11/22 09:00 05/11/22 16:39 Buspirone Hcl 5 Mg Tablet PO 5 mg BID ESTRELLITA Administration Celecoxib 200 mg 05/10/22 18:18 05/11/22 16:39 Celecoxib 200 Mg Capsule PO 200 mg BID PRN Administration Anxiety Cyclosporine 1 drop 05/10/22 18:18 Cyclosporine 0.4 Ml Ophth Solution EACH EYE Q12H PRN Dry Eyes Dexamethasone Sodium Phosphate 6 mg 05/10/22 15:50 05/11/22 08:04 Dexamethasone Sod Phos Inj 10 Mg/Ml 1 Ml Vial IV PUSH 05/19/22 09:01 6 mg DAILY ESTRELLITA Administration Dextrose 12.5 gm 05/10/22 18:21 Dextrose 50% 25 Gm/50 Ml Syringe IV PUSH PRN PRN Hypoglycemia Protocol Diltiazem HCl 120 mg 05/11/22 09:00 05/11/22 08:04 Diltiazem Hcl Cd 120 Mg Cap.Sa.24h PO 120 mg DAILY ESTRELLITA Administration Fenofibrate 48 mg 05/11/22 09:00 05/11/22 08:04 Fenofibrate,Micronized 48 Mg Tablet PO 48 mg DAILY ESTRELLITA Administration Fluticasone Propionate 2 spray 05/11/22 09:00 05/11/22 08:05 Fluticasone Propionate 0.05% Na Spr 16 Gm Btl (*Bkc) NASAL 2 spray DAILY ESTRELLITA Administration Glucagon 1 mg 05/10/22 18:21 Glucagon For Inj 1 Mg Vial IM PRN PRN Hypoglycemia Protocol Glucose 15 gm 05/10/22 18:21 Glucose Oral Gel 15 Gm Of Glucse In 37.5 Gm Tube PO PRN PRN Hypoglycemia Protocol Guaifenesin 600 mg 05/10/22 21:00 05/11/22 20:10 Guaifenesin 12 Hr 600 Mg Tabcr PO 600 mg Q12HR ESTRELLITA Administration Hydroxychloroquine Sulfate 200 mg 05/11/22 09:00 05/11/22 08:04 Hydroxychloroquine Sulfate 200 Mg Tablet PO 200 mg DAILY ESTRELLITA Administration Azithromycin 500 mg in 250 mls @ 250 mls/hr 05/11/22 12:00 05/11/22 17:59 Zithromax IVPB Infused NOON ESTRELLITA Infusion Ceftriaxone Sodium/Dextrose 1 gm in 50 mls @ 100 mls/hr 05/11/22 12:00 05/11/22 11:07 Rocephin 1 Gm/D5w 50 Ml IVPB 100 mls/hr NOON ESTRELLITA Administration Remdesivir 100 mg in 250 mls @ 250 mls/hr 05/11/22 22:00 IVPB 05/14/22 22:59 Q24H ESTRELLITA Dextrose 1,000 mls @ 100 mls/hr 05/10/22 18:21 Dextrose 5% 1,000 Ml IVPB PRN PRN Hypoglycemia Protocol Insulin Aspart 2 - 5 units 05/11/22 08:00 05/11/22 16:34 Insulin Aspart (*Bkc) 100 Units/Ml SUB-Q Not Given TIDWM ESTRELLITA Protocol Leflunomide 20 mg 05/11/22 09:00 07/13/22 08:04 Leflunomide 20 Mg Tablet PO 20 mg DAILY ESTRELLITA Administration Levothyroxine Sodium 88 mcg 05/11/22 06:30 05/11/22 06:17 Levothyroxine Sodium 88 Mcg Tablet PO 88 mcg DAILY@0630 ESTRELLITA Administration Loratadine 10 mg
[2022-05-11] MEDS: REMDESIVIR 100 MG/NS 250 ML 100 MG/250 ML BAG 250 MG IVPB (21:19)
[2022-05-11] MEDS: CENTRAL LINE FLUSH 10 ML IV PUSH (21:19)
[2022-05-11 23:29] LABS: Glucose Point of Care 169 mg/dl (65-105)
[2022-05-12] VITALS (13 sets, daily range): BP systolic 114–131; BP diastolic 76–87; PULSE 71–88; RESP 19–26; TEMP 35.9–36.6; O2SAT 95–98
[2022-05-12] MEDS: LEVOTHYROXINE SODIUM 88 MCG TABLET PO (05:39)
[2022-05-12] MEDS: CENTRAL LINE FLUSH 10 ML IV PUSH ×3 (05:40→21:55)
[2022-05-12 06:05] LABS: Basophils Percent Auto 0.1 % (0.2-1.2); Hematocrit 40.1 % (37.0-47.0); Hemoglobin 12.6 g/dL (12.0-15.0); Immature Granulocyte Absolute 0.09 K/mm3 (0.00-0.031); Immature Granulocyte Percent A 0.6 % (0-0.5); Lymphocytes Absolute Auto 0.81 K/mm3 (0.9-3.2); Lymphocytes Percent Auto 5.5 % (18.3-44.2); Mean Corpuscular HGB Conc 31.4 g/dl (32-36); Mean Corpuscular Hemoglobin 28.3 pg (26-34); Mean Corpuscular Volume 89.9 fl (80-100); Mean Platelet Volume 10.9 fl (7.4-10.4); Monocytes Absolute Auto 0.5 K/mm3 (0.1-0.6); Monocytes Percent Auto 3.7 % (2.6-8.5); Neutrophils Absolute Auto 13.3 K/mm3 (1.3-6.7); Neutrophils Percent Auto 90.1 % (45.5-73.1); Platelet Count Result 169 k/mm3 (150-375); Red Blood Count 4.46 M/mm3 (4.2-5.4); Red Cell Distribution Width 15.6 % (11.5-14.5); White Blood Count 14.7 K/mm3 (4.5-10.0)
[2022-05-12 06:19] LABS: Alanine Aminotransferase 15 U/L (6-35); Albumin Level 3.3 g/dL (3.5-5.1); Alkaline Phosphatase 65 U/L (38-126); Anion Gap 2 mmol/L (8-16); Aspartate Amino Transferase 17 U/L (14-36); Bilirubin,Total 0.5 mg/dL (0.2-1.3); Blood Urea Nitrogen 20 mg/dL (7-17); Calcium 8.9 mg/dL (8.4-10.2); Carbon Dioxide 29 mmol/L (22-30); Chloride 105 mmol/L (98-107); Estimated CRCL calculation 85 ml/min; Estimated Glomerular Filt Rate > 60; Glucose 134 mg/dL (65-110); Magnesium 2.2 mg/dL (1.6-2.3); Potassium 3.7 mmol/L (3.4-5.0); Sodium 136 mmol/L (137-145)
[2022-05-12 06:23] LABS: INR 1.2; Prothrombin Time 14.6 Seconds (11.1-14.7)
--- NOTE | 2022-05-12 06:23 | PC.NURSE ---
05/12/22622 contacted maintenance and respiratory during the night regarding pt's home cpap machine which is located at the nurse station. both departments informed.
--- NOTE | 2022-05-12 06:45 | PC.NURSE ---
05/12/22 0645 pt now has cpap machine at bedside.
[2022-05-12 08:13] LABS: Glucose Point of Care 147 mg/dl (65-105)
[2022-05-12] MEDS: UMECLIDINIUM BROMIDE 62.5 MCG ELLIPTA 1 PUFF INHALATION (08:28)
[2022-05-12] MEDS: FLUTICASONE/SALMETEROL 115-21 MCG INHALER 1 PUFF 2 PUFF INHALATION ×2 (08:29→19:26)
[2022-05-12] MEDS: busPIRone HCL 5 MG TABLET PO ×2 (08:59→16:15)
[2022-05-12] MEDS: CHOLECALCIFEROL 1,000 UNITS TABLET 2000 UNITS PO (08:59)
[2022-05-12] MEDS: FENOFIBRATE,MICRONIZED 48 MG TABLET PO (09:00)
[2022-05-12] MEDS: metFORMIN HCL XR 500 MG TAB.SR.24H PO (09:01)
[2022-05-12] MEDS: guaiFENesin 12 HR 600 MG TABCR PO ×2 (09:01→20:53)
[2022-05-12] MEDS: LEFLUNOMIDE 20 MG TABLET PO (09:01)
[2022-05-12] MEDS: HYDROXYCHLOROQUINE SULFATE 200 MG TABLET PO (09:01)
[2022-05-12] MEDS: LOSARTAN POTASSIUM 50 MG TABLET 100 MG PO (09:01)
[2022-05-12] MEDS: cycloSPORINE 0.4 ML OPHTH SOLUTION 1 DROP EACH EYE (09:02)
[2022-05-12] MEDS: PRAVASTATIN SODIUM 20 MG TABLET PO (09:02)
[2022-05-12] MEDS: SPIRONOLACTONE 50 MG TABLET PO (09:02)
[2022-05-12] MEDS: MONTELUKAST SODIUM 10 MG TABLET PO (09:02)
[2022-05-12] MEDS: LOTEPREDNOL ETABONATE 0.2% OPH 5 ML SUSP 1 DROP EACH EYE ×3 (09:04→20:53)
[2022-05-12] MEDS: FLUTICASONE PROPIONATE 0.05% NA SPR 16 GM BTL (*BKC) 2 SPRAY NASAL (09:04)
[2022-05-12 11:42] LABS: Glucose Point of Care 116 mg/dl (65-105)
[2022-05-12] MEDS: ALBUTEROL SULFATE (*SP) AEROSOL 1 PUFF 2 PUFF INHALATION ×2 (13:30→19:26)
--- NOTE | 2022-05-12 13:36 | PC.NURSE ---
veronica started at 1315, unable to save due to Dr Newsome in chart
--- NOTE | 2022-05-12 14:31 | P.PNIM_ITS ---
Progress Note: A&P Assessment and Plan (1) Pneumonia: Code(s): J18.9 - Pneumonia, unspecified organism Status: Acute Assessment and Plan: * CTA shows a patchy airspace opacity in the right upper lobe consistent with pneumonia * chest x-ray shows airspace opacities in the right mid and lower lung zones * WBCs elevated 12.6 * azithromycin and ceftriaxone continued * continue neb treatments * sputum and blood culture ordered * trend culture results * adjust therapy to culture findings * could be adjacent to COVID findings * supplemental oxygen wean to maintain saturation greater than 90% * trend SpO2 * ABG shows a pH of 7.478, pCO2 at 28.8, PO2 of 67.6, HC03 of 20.9 and an oxygen saturation of 94.9% on 2 L nasal cannula, indication of respiratory alkalosis On home oxygen 4 L with activity Echo with EF more than 70% grade 1 diastolic dysfunction no pulmonary hypertension. No other valvular abnormality Sputum culture with Staph aureus. Will add vancomycin. (2) Sepsis: Code(s): A41.9 - Sepsis, unspecified organism Status: Acute Assessment and Plan: * patient meets sepsis criteria with an elevated respiratory rate of 29, leukocytosis of 12.6, tachycardia of heart rate in the 110-120, elevated lactate at 3.3 * infectious source is pneumonia * blood cultures pending * sputum culture pending * urine culture ordered * continue IV ceftriaxone and azithromycin * WBCs 12.6, trend labs * pulmonary consult thank you for your help Add vancomycin for Staph aureus in sputum (3) Morbid obesity with BMI of 45.0-49.9, adult: Code(s): E66.01 - Morbid (severe) obesity due to excess calories; Z68.42 - Body mass index [BMI] 45.0-49.9, adult Status: Acute Assessment and Plan: * patient has a BMI of 48.8 * patient is really not interested in lifestyle changes * patient does take Ozempic which is probably used for weight loss * last A1c was 5.5 * patient is requesting a regular diet as that she is not diabetic * will have dietitian talk to patient (4) COVID-19: Code(s): U07.1 - COVID-19 Status: Acute Assessment and Plan: * patient tested positive on 05/01/2022 * neb treatments * supplemental oxygen wean to maintain a saturation greater than 90% * ABG shows respiratory alkalosis * pulmonary consult * consider remdesivir and dexamethasone * antibiotics for bacterial pneumonia * COVID vaccinated x2 with Pfizer * Antitussives (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 Moody * receives 3 monthly IgG infusions * next IgG infusion is for Monday Consulted Dr. moody and discussed with him. She is due for her IgG infusion on and will plan to do that at that time. (6) Hyperlipidemia: Code(s): E78.5 - Hyperlipidemia, unspecified Status: Acute Assessment and Plan: * continue home fenofibrate and pravastatin (7) Hypertension: Code(s): I10 - Essential (primary) hypertension Status: Acute Assessment and Plan: * current blood pressure 156/86 * continue home the tele some 120 p.o. daily, losartan 100 mg p.o. daily * trend blood pressure * adjust therapy as indicated (8)
--- NOTE | 2022-05-12 14:31 | PM.IMPN ---
Progress Note: A&P Assessment and Plan (1) Pneumonia: Code(s): J18.9 - Pneumonia, unspecified organism Status: Acute Assessment and Plan: CTA shows a patchy airspace opacity in the right upper lobe consistent with pneumonia chest x-ray shows airspace opacities in the right mid and lower lung zones WBCs elevated 12.6 azithromycin and ceftriaxone continued continue neb treatments sputum and blood culture ordered trend culture results adjust therapy to culture findings could be adjacent to COVID findings supplemental oxygen wean to maintain saturation greater than 90% trend SpO2 ABG shows a pH of 7.478, pCO2 at 28.8, PO2 of 67.6, HC03 of 20.9 and an oxygen saturation of 94.9% on 2 L nasal cannula, indication of respiratory alkalosis On home oxygen 4 L with activity Echo with EF more than 70% grade 1 diastolic dysfunction no pulmonary hypertension. No other valvular abnormality Sputum culture with Staph aureus. Will add vancomycin. (2) Sepsis: Code(s): A41.9 - Sepsis, unspecified organism Status: Acute Assessment and Plan: patient meets sepsis criteria with an elevated respiratory rate of 29, leukocytosis of 12.6, tachycardia of heart rate in the 110-120, elevated lactate at 3.3 infectious source is pneumonia blood cultures pending sputum culture pending urine culture ordered continue IV ceftriaxone and azithromycin WBCs 12.6, trend labs pulmonary consult thank you for your help Add vancomycin for Staph aureus in sputum (3) Morbid obesity with BMI of 45.0-49.9, adult: Code(s): E66.01 - Morbid (severe) obesity due to excess calories; Z68.42 - Body mass index [BMI] 45.0-49.9, adult Status: Acute Assessment and Plan: patient has a BMI of 48.8 patient is really not interested in lifestyle changes patient does take Ozempic which is probably used for weight loss last A1c was 5.5 patient is requesting a regular diet as that she is not diabetic will have dietitian talk to patient (4) COVID-19: Code(s): U07.1 - COVID-19 Status: Acute Assessment and Plan: patient tested positive on 05/01/2022 neb treatments supplemental oxygen wean to maintain a saturation greater than 90% ABG shows respiratory alkalosis pulmonary consult consider remdesivir and dexamethasone antibiotics for bacterial pneumonia COVID vaccinated x2 with Pfizer Antitussives (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 Moody receives 3 monthly IgG infusions next IgG infusion is for Monday Consulted Dr. moody and discussed with him. She is due for her IgG infusion on and will plan to do that at that time. (6) Hyperlipidemia: Code(s): E78.5 - Hyperlipidemia, unspecified Status: Acute Assessment and Plan: continue home fenofibrate and pravastatin (7) Hypertension: Code(s): I10 - Essential (primary) hypertension Status: Acute Assessment and Plan: current blood pressure 156/86 continue home the tele some 120 p.o. daily, losartan 100 mg p.o. daily trend blood pressure adjust therapy as indicated (8) Hypothyroid: Code(s): E03.9 - Hypothyroidism, unspecified Status: Acute Assessment and Plan: continue home levothyroxine 88 mcg daily adjust as indicated (9) Asthma with COPD: Code(s): J44.9 - Chronic obstructive pulmonary disease, unspecified Status: Acute Assessment and Plan: continue home Singulair, Symbicort, albuterol Trend respiratory status more than likely pneumonia not acute COPD exacerbation she does report increased shortness of breath and increased sputum with coughing (10)
[2022-05-12 16:53] LABS: Glucose Point of Care 122 mg/dl (65-105)
[2022-05-12] MEDS: REMDESIVIR 100 MG/NS 250 ML 100 MG/250 ML BAG 250 MG IVPB (21:55)
[2022-05-12] MEDS: ACETAMINOPHEN 500 MG TABLET 1000 MG PO (21:58)
[2022-05-12] MEDS: diphenhydrAMINE HCl CAP 25 MG CAPSULE 50 MG PO (21:59)
[2022-05-12] MEDS: WATER FOR IRRIGATION, STERILE 1,000 ML BOTTLE 1000 ML (22:30)
[2022-05-13] VITALS (15 sets, daily range): BP systolic 122–151; BP diastolic 66–88; PULSE 6–91; RESP 16–22; TEMP 36–37; O2SAT 95–99
[2022-05-13 05:54] LABS: Alanine Aminotransferase 14 U/L (6-35); Estimated CRCL calculation 76 ml/min; Estimated Glomerular Filt Rate > 60
[2022-05-13 06:42] LABS: INR 1.2; Prothrombin Time 14.5 Seconds (11.1-14.7)
[2022-05-13 08:18] LABS: Glucose Point of Care 103 mg/dl (65-105)
[2022-05-13] MEDS: CENTRAL LINE FLUSH 10 ML IV PUSH ×3 (08:19→20:59)
[2022-05-13] MEDS: guaiFENesin 12 HR 600 MG TABCR PO ×2 (08:20→20:58)
[2022-05-13] MEDS: metFORMIN HCL XR 500 MG TAB.SR.24H PO (08:20)
[2022-05-13] MEDS: SPIRONOLACTONE 50 MG TABLET PO (08:20)
[2022-05-13] MEDS: LEFLUNOMIDE 20 MG TABLET PO (08:20)
[2022-05-13] MEDS: MONTELUKAST SODIUM 10 MG TABLET PO (08:20)
[2022-05-13] MEDS: HYDROXYCHLOROQUINE SULFATE 200 MG TABLET PO (08:20)
[2022-05-13] MEDS: FENOFIBRATE,MICRONIZED 48 MG TABLET PO (08:20)
[2022-05-13] MEDS: LEVOTHYROXINE SODIUM 88 MCG TABLET PO (08:20)
[2022-05-13] MEDS: busPIRone HCL 5 MG TABLET PO ×2 (08:21→17:06)
[2022-05-13] MEDS: CHOLECALCIFEROL 1,000 UNITS TABLET 2000 UNITS PO (08:21)
[2022-05-13] MEDS: LORATADINE 10 MG TABLET PO (08:21)
[2022-05-13] MEDS: LOSARTAN POTASSIUM 50 MG TABLET 100 MG PO (08:21)
[2022-05-13] MEDS: PRAVASTATIN SODIUM 20 MG TABLET PO (08:22)
[2022-05-13] MEDS: FLUTICASONE PROPIONATE 0.05% NA SPR 16 GM BTL (*BKC) 2 SPRAY NASAL (08:23)
[2022-05-13] MEDS: LOTEPREDNOL ETABONATE 0.2% OPH 5 ML SUSP 1 DROP EACH EYE ×4 (08:23→20:58)
[2022-05-13] MEDS: ENOXAPARIN 40 MG/0.4 ML SYRINGE SUB-Q (09:40)
[2022-05-13] MEDS: FLUTICASONE/SALMETEROL 115-21 MCG INHALER 1 PUFF 2 PUFF INHALATION ×2 (09:52→19:49)
[2022-05-13] MEDS: UMECLIDINIUM BROMIDE 62.5 MCG ELLIPTA 1 PUFF INHALATION (09:53)
[2022-05-13] MEDS: CELECOXIB 200 MG CAPSULE PO (11:03)
[2022-05-13] MEDS: ALBUTEROL SULFATE (*SP) AEROSOL 1 PUFF 2 PUFF INHALATION (11:26)
[2022-05-13 11:56] LABS: Glucose Point of Care 141 mg/dl (65-105)
--- NOTE | 2022-05-13 12:07 | ECG_ITS ---
Measurements Intervals [place] Rate: 86 P: 47 GA: 167 QRS: 41 QRSD: 82 T: 43 QT: 368 QTc: 441 Interpretive Statements SINUS RHYTHM BORDERLINE R WAVE PROGRESSION, ANTERIOR LEADS BASELINE ARTIFACT- I, III, AVL, V5 BORDERLINE ECG Electronically Signed On 05-13-2022 18:37:52 CDT by Jake Cassidy D.O.
--- NOTE | 2022-05-13 13:27 | P.PNIM_ITS ---
Progress Note: A&P Assessment and Plan (1) Pneumonia: Code(s): J18.9 - Pneumonia, unspecified organism Status: Acute Assessment and Plan: * CTA shows a patchy airspace opacity in the right upper lobe consistent with pneumonia * chest x-ray shows airspace opacities in the right mid and lower lung zones * WBCs elevated 12.6 * azithromycin and ceftriaxone continued * continue neb treatments * sputum and blood culture ordered * trend culture results * adjust therapy to culture findings * could be adjacent to COVID findings * supplemental oxygen wean to maintain saturation greater than 90% * trend SpO2 * ABG shows a pH of 7.478, pCO2 at 28.8, PO2 of 67.6, HC03 of 20.9 and an oxygen saturation of 94.9% on 2 L nasal cannula, indication of respiratory alkalosis On home oxygen 4 L with activity Echo with EF more than 70% grade 1 diastolic dysfunction no pulmonary hypertension. No other valvular abnormality Sputum culture with Staph aureus. Will add vancomycin. Staph aureus porcelain turner to be MSSA will change vancomycin to Ancef, no bacteremia present (2) Sepsis: Code(s): A41.9 - Sepsis, unspecified organism Status: Acute Assessment and Plan: * patient meets sepsis criteria with an elevated respiratory rate of 29, leukocytosis of 12.6, tachycardia of heart rate in the 110-120, elevated lactate at 3.3 * infectious source is pneumonia * blood cultures pending * sputum culture pending * urine culture ordered * continue IV ceftriaxone and azithromycin * WBCs 12.6, trend labs * pulmonary consult thank you for your help Add vancomycin for Staph aureus in sputum which will be changed to Ancef today (3) Morbid obesity with BMI of 45.0-49.9, adult: Code(s): E66.01 - Morbid (severe) obesity due to excess calories; Z68.42 - Body mass index [BMI] 45.0-49.9, adult Status: Acute Assessment and Plan: * patient has a BMI of 48.8 * patient is really not interested in lifestyle changes * patient does take Ozempic which is probably used for weight loss * last A1c was 5.5 * patient is requesting a regular diet as that she is not diabetic * will have dietitian talk to patient (4) COVID-19: Code(s): U07.1 - COVID-19 Status: Acute Assessment and Plan: * patient tested positive on 05/01/2022 * neb treatments * supplemental oxygen wean to maintain a saturation greater than 90% * ABG shows respiratory alkalosis * pulmonary consult * consider remdesivir and dexamethasone * antibiotics for bacterial pneumonia * COVID vaccinated x2 with Pfizer * Antitussives (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 Moody * receives 3 monthly IgG infusions * next IgG infusion is for Monday Consulted Dr. moody and discussed with him. She is due for her IgG infusion on and will plan to do that at that time. (6) Hyperlipidemia: Code(s): E78.5 - Hyperlipidemia, unspecified Status: Acute Assessment and Plan: * continue home fenofibrate and pravastatin (7) Hypertension: Code(s): I10 - Essential (primary) hypertension Status: Acute Assessment and Plan: * current blood pressure 156/86 * continue home the tele some 120 p.
--- NOTE | 2022-05-13 13:27 | PM.IMPN ---
Progress Note: A&P Assessment and Plan (1) Pneumonia: Code(s): J18.9 - Pneumonia, unspecified organism Status: Acute Assessment and Plan: CTA shows a patchy airspace opacity in the right upper lobe consistent with pneumonia chest x-ray shows airspace opacities in the right mid and lower lung zones WBCs elevated 12.6 azithromycin and ceftriaxone continued continue neb treatments sputum and blood culture ordered trend culture results adjust therapy to culture findings could be adjacent to COVID findings supplemental oxygen wean to maintain saturation greater than 90% trend SpO2 ABG shows a pH of 7.478, pCO2 at 28.8, PO2 of 67.6, HC03 of 20.9 and an oxygen saturation of 94.9% on 2 L nasal cannula, indication of respiratory alkalosis On home oxygen 4 L with activity Echo with EF more than 70% grade 1 diastolic dysfunction no pulmonary hypertension. No other valvular abnormality Sputum culture with Staph aureus. Will add vancomycin. Staph aureus nocturnist to be MSSA will change vancomycin to Ancef, no bacteremia present (2) Sepsis: Code(s): A41.9 - Sepsis, unspecified organism Status: Acute Assessment and Plan: patient meets sepsis criteria with an elevated respiratory rate of 29, leukocytosis of 12.6, tachycardia of heart rate in the 110-120, elevated lactate at 3.3 infectious source is pneumonia blood cultures pending sputum culture pending urine culture ordered continue IV ceftriaxone and azithromycin WBCs 12.6, trend labs pulmonary consult thank you for your help Add vancomycin for Staph aureus in sputum which will be changed to Ancef today (3) Morbid obesity with BMI of 45.0-49.9, adult: Code(s): E66.01 - Morbid (severe) obesity due to excess calories; Z68.42 - Body mass index [BMI] 45.0-49.9, adult Status: Acute Assessment and Plan: patient has a BMI of 48.8 patient is really not interested in lifestyle changes patient does take Ozempic which is probably used for weight loss last A1c was 5.5 patient is requesting a regular diet as that she is not diabetic will have dietitian talk to patient (4) COVID-19: Code(s): U07.1 - COVID-19 Status: Acute Assessment and Plan: patient tested positive on 05/01/2022 neb treatments supplemental oxygen wean to maintain a saturation greater than 90% ABG shows respiratory alkalosis pulmonary consult consider remdesivir and dexamethasone antibiotics for bacterial pneumonia COVID vaccinated x2 with Pfizer Antitussives (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 Moody receives 3 monthly IgG infusions next IgG infusion is for Monday Consulted Dr. moody and discussed with him. She is due for her IgG infusion on and will plan to do that at that time. (6) Hyperlipidemia: Code(s): E78.5 - Hyperlipidemia, unspecified Status: Acute Assessment and Plan: continue home fenofibrate and pravastatin (7) Hypertension: Code(s): I10 - Essential (primary) hypertension Status: Acute Assessment and Plan: current blood pressure 156/86 continue home the tele some 120 p.o. daily, losartan 100 mg p.o. daily trend blood pressure adjust therapy as indicated (8) Hypothyroid: Code(s): E03.9 - Hypothyroidism, unspecified Status: Acute Assessment and Plan: continue home levothyroxine 88 mcg daily adjust as indicated (9) Asthma with COPD: Code(s): J44.9 - Chronic obstructive pulmonary disease, unspecified Status: Acute Assessment and Plan: continue home Singulair, Symbicort, albuterol Trend respiratory status more than likely pneumoni
[2022-05-13] MEDS: ceFAZolin 2 GM/D5W 50 ML 2 GM/50 ML BAG IVPB ×2 (14:09→20:56)
[2022-05-13 15:06] LABS: Troponin I < 0.012 ng/mL (0.000-0.034)
[2022-05-13 16:35] LABS: Troponin I < 0.012 ng/mL (0.000-0.034)
[2022-05-13] MEDS: ALTEPLASE 2 MG VIAL (CATHFLO) IV PUSH (17:05)
[2022-05-13 17:07] LABS: Glucose Point of Care 136 mg/dl (65-105)
--- NOTE | 2022-05-13 18:40 | PDONCCN ---
HPI - Date of Consult Date/Time: 05/13/22 18:40 Requesting Physician: Rehan Westfall MD Primary Care Provider: Dirk Solis, - Consult Narrative Reason for consult: Immunoglobulin deficiency Narrative: Karen Em is a 57 year old female with history of combined variable immunoglobulin deficiency who has been on IV IgG treatment at home on every 3 month basis. She was recently seen in the office as well. Patient also has a history of morbid obesity, sleep apnea and asthma. She came into the hospital with worsening of shortness of breath and cough. She was recently tested positive for COVID as well. CTA chest was performed that showed patchy airspace opacity in the right upper lobe consistent with pneumonia. Labs showed elevated WBC count of 14.7 with normal hemoglobin and platelet count. She was started on antibiotic treatment with Ancef and Zithromax. Review of Systems - Review of Systems All systems reviewed & are unremarkable except as noted in HPI and bel - Neurologic Reports hearing normal [facility] Medical History: Medical History (Last Reviewed 05/10/22 @ 14:26 by CHRISTIN Pride) Acute respiratory failure with hypoxia LISA (acute kidney injury) Onset Date: ~12/2020 Aspergillus Asthma with COPD PFTs 05/10/2020 BPPV (benign paroxysmal positional vertigo) GERD (gastroesophageal reflux disease) Hemoptysis Hypothyroid IgG deficiency Morbid obesity Necrotizing pneumonia Onset Date: ~01/2021 MSSA YOON (obstructive sleep apnea) With CPAP of 7 Pneumonia due to COVID-19 virus Onset Date: ~12/2020 Prediabetes Rheumatoid arthritis Staphylococcus aureus pneumonia Onset Date: ~12/2019 SVT (supraventricular tachycardia) Vitamin D deficiency Surgical History: Surgical History (Last Reviewed 05/10/22 @ 14:27 by CHRISTIN Pride) Delivery by section H/O lateral meniscus repair of right knee H/O tubal ligation History of hysterectomy History of tonsillectomy Hx of cholecystectomy Family History: Family History (Last Reviewed 05/10/22 @ 14:27 by CHRISTIN Pride) Father Thyroid cancer Lung cancer Carcinoma of colon Hypertension Myocardial infarct Mother Brain cancer Colitis Depression Lung cancer COPD (chronic obstructive pulmonary disease) Diabetes mellitus Hypertension CAD (coronary artery disease) - Social History Social History: Social History (Last Updated 05/10/22 @ 14:27 by CHRISTIN Pride) Gender Identity: Gender identity (if verbalized by the patient): Female Sexual Orientation: Sexual Orientation (if Verbalized by the Patient): Straight or Heterosexual Alcohol Use: Alcohol intake: current Alcohol use details: rarely Substance Use: Substance use: never Substance use type: does not use Others: Spiritual care concerns: No Agree to blood products: Yes Smoking Status: Smoking status: Former smoker Second hand tobacco smoke exposure: Yes Approximate Smoking End Date: 1995 Smoking Pack-years: Smoking packs per day: 1 Smoking cigarettes per day: 20.0 Years smoked: 10 Smoking pack-years: 10.00 Meds Home Medications Medication Instructions Recorded Confirmed Type losartan 50 mg tablet 100 mg PO DAILY 10/21/19 05/10/22 History montelukast 10 mg tablet 10 mg PO DAILY 10/21/19 05/10/22 History pravastatin 20 mg tablet 20 mg PO DAILY 01/26/20 05/10/22 History fenofibrate nanocrystallized 48 mg 48 mg PO DAILY 07/28/20 05/10/22 History tablet loratadine 10 mg tablet 10 mg PO DAILY PRN Congestion 07/28/20 05/10/22 History celecoxib 200 mg capsule 200 mg PO BID PRN Anxiety 01/22/21 05/10/22 History folic acid 1 mg tablet 3 - 4 mg PO DAILY 01/22/21 05/10/22 History leflunomide 20 mg tablet 20 mg PO DAILY 01/22/21 05/10/22 History levothyroxine 88 mcg tablet 88 mcg PO DAILY 01/22/21 05/10/22 History (Synthroid) spirono
[2022-05-13 19:58] LABS: Mycoplasma IgM Antibody Titer 258 U/mL (<770)
[2022-05-13 20:01] LABS: Troponin I < 0.012 ng/mL (0.000-0.034)
--- NOTE | 2022-05-13 20:43 | PHAR ---
PT'S HOME MED IMMUNE GLOBULIN 10% 20 GM/200 ML X3 BOTTLES INTRAVENOUS SOLUTION VERIFIED BY PHARMACY.
[2022-05-13 21:22] LABS: Glucose Point of Care 132 mg/dl (65-105)
[2022-05-13] MEDS: REMDESIVIR 100 MG/NS 250 ML 100 MG/250 ML BAG 250 MG IVPB (21:28)
[2022-05-13] MEDS: ACETAMINOPHEN 500 MG TABLET 1000 MG PO (21:29)
[2022-05-14] VITALS (16 sets, daily range): BP systolic 115–145; BP diastolic 60–83; PULSE 67–89; RESP 16–20; TEMP 35.9–36.5; O2SAT 96–98
[2022-05-14] MEDS: ACETAMINOPHEN 325 MG TABLET 650 MG PO (02:37)
[2022-05-14 02:46] LABS: Vancomycin Trough 13.2 ug/mL (10.0-20.0)
[2022-05-14] MEDS: diphenhydrAMINE HCl CAP 25 MG CAPSULE 50 MG PO ×2 (05:40→22:05)
[2022-05-14] MEDS: CENTRAL LINE FLUSH 10 ML IV PUSH ×3 (06:12→22:00)
[2022-05-14 06:18] LABS: Alanine Aminotransferase 12 U/L (6-35); Albumin Level 3.2 g/dL (3.5-5.1); Alkaline Phosphatase 58 U/L (38-126); Anion Gap 4 mmol/L (8-16); Aspartate Amino Transferase 15 U/L (14-36); Bilirubin,Total 0.4 mg/dL (0.2-1.3); Blood Urea Nitrogen 22 mg/dL (7-17); Calcium 8.5 mg/dL (8.4-10.2); Carbon Dioxide 28 mmol/L (22-30); Chloride 105 mmol/L (98-107); Estimated CRCL calculation 85 ml/min; Estimated Glomerular Filt Rate > 60; Glucose 130 mg/dL (65-110); Magnesium 2.3 mg/dL (1.6-2.3); Potassium 3.9 mmol/L (3.4-5.0); Sodium 137 mmol/L (137-145)
[2022-05-14 06:19] LABS: Basophils Percent Auto 0.1 % (0.2-1.2); Hematocrit 39.8 % (37.0-47.0); Hemoglobin 12.4 g/dL (12.0-15.0); Immature Granulocyte Absolute 0.11 K/mm3 (0.00-0.031); Immature Granulocyte Percent A 1.3 % (0-0.5); Lymphocytes Absolute Auto 0.87 K/mm3 (0.9-3.2); Lymphocytes Percent Auto 10.4 % (18.3-44.2); Mean Corpuscular HGB Conc 31.2 g/dl (32-36); Mean Corpuscular Hemoglobin 27.7 pg (26-34); Mean Platelet Volume 11.6 fl (7.4-10.4); Monocytes Absolute Auto 0.6 K/mm3 (0.1-0.6); Monocytes Percent Auto 7.1 % (2.6-8.5); Neutrophils Absolute Auto 6.8 K/mm3 (1.3-6.7); Neutrophils Percent Auto 81.1 % (45.5-73.1); Platelet Count Result 191 k/mm3 (150-375); Red Blood Count 4.47 M/mm3 (4.2-5.4); Red Cell Distribution Width 15.8 % (11.5-14.5); White Blood Count 8.4 K/mm3 (4.5-10.0)
[2022-05-14 06:20] LABS: INR 1.2; Prothrombin Time 14.4 Seconds (11.1-14.7)
[2022-05-14] MEDS: LEVOTHYROXINE SODIUM 88 MCG TABLET PO (06:49)
[2022-05-14 08:23] LABS: Glucose Point of Care 134 mg/dl (65-105)
[2022-05-14] MEDS: ENOXAPARIN 40 MG/0.4 ML SYRINGE SUB-Q (08:26)
[2022-05-14] MEDS: metFORMIN HCL XR 500 MG TAB.SR.24H PO (08:27)
[2022-05-14] MEDS: busPIRone HCL 5 MG TABLET PO ×2 (08:27→15:59)
[2022-05-14] MEDS: guaiFENesin 12 HR 600 MG TABCR PO ×2 (08:27→20:17)
[2022-05-14] MEDS: MONTELUKAST SODIUM 10 MG TABLET PO (08:27)
[2022-05-14] MEDS: LOSARTAN POTASSIUM 50 MG TABLET 100 MG PO (08:27)
[2022-05-14] MEDS: CHOLECALCIFEROL 1,000 UNITS TABLET 2000 UNITS PO (08:27)
[2022-05-14] MEDS: LEFLUNOMIDE 20 MG TABLET PO (08:27)
[2022-05-14] MEDS: SPIRONOLACTONE 50 MG TABLET PO (08:28)
[2022-05-14] MEDS: LORATADINE 10 MG TABLET PO (08:28)
[2022-05-14] MEDS: FENOFIBRATE,MICRONIZED 48 MG TABLET PO (08:28)
[2022-05-14] MEDS: FLUTICASONE PROPIONATE 0.05% NA SPR 16 GM BTL (*BKC) 2 SPRAY NASAL (08:28)
[2022-05-14] MEDS: LOTEPREDNOL ETABONATE 0.2% OPH 5 ML SUSP 1 DROP EACH EYE ×4 (08:28→20:18)
[2022-05-14] MEDS: PRAVASTATIN SODIUM 20 MG TABLET PO (08:28)
[2022-05-14] MEDS: HYDROXYCHLOROQUINE SULFATE 200 MG TABLET PO (08:28)
[2022-05-14 12:15] LABS: Glucose Point of Care 105 mg/dl (65-105)
--- NOTE | 2022-05-14 12:53 | P.PNIM_ITS ---
Progress Note: A&P Assessment and Plan (1) Pneumonia: Code(s): J18.9 - Pneumonia, unspecified organism Status: Acute Assessment and Plan: * CTA shows a patchy airspace opacity in the right upper lobe consistent with pneumonia * chest x-ray shows airspace opacities in the right mid and lower lung zones * WBCs elevated 12.6 * azithromycin and ceftriaxone continued * continue neb treatments * sputum and blood culture ordered * trend culture results * adjust therapy to culture findings * could be adjacent to COVID findings * supplemental oxygen wean to maintain saturation greater than 90% * trend SpO2 * ABG shows a pH of 7.478, pCO2 at 28.8, PO2 of 67.6, HC03 of 20.9 and an oxygen saturation of 94.9% on 2 L nasal cannula, indication of respiratory alkalosis On home oxygen 4 L with activity Echo with EF more than 70% grade 1 diastolic dysfunction no pulmonary hypertension. No other valvular abnormality Sputum culture with Staph aureus. Will add vancomycin. Staph aureus engine turner to be MSSA will change vancomycin to Ancef, no bacteremia present (2) Sepsis: Code(s): A41.9 - Sepsis, unspecified organism Status: Acute Assessment and Plan: * patient meets sepsis criteria with an elevated respiratory rate of 29, leukocytosis of 12.6, tachycardia of heart rate in the 110-120, elevated lactate at 3.3 * infectious source is pneumonia * blood cultures pending * sputum culture pending * urine culture ordered * continue IV ceftriaxone and azithromycin * WBCs 12.6, trend labs * pulmonary consult thank you for your help Add vancomycin for Staph aureus in sputum which will be changed to Ancef 05/13/2022 (3) Morbid obesity with BMI of 45.0-49.9, adult: Code(s): E66.01 - Morbid (severe) obesity due to excess calories; Z68.42 - Body mass index [BMI] 45.0-49.9, adult Status: Acute Assessment and Plan: * patient has a BMI of 48.8 * patient is really not interested in lifestyle changes * patient does take Ozempic which is probably used for weight loss * last A1c was 5.5 * patient is requesting a regular diet as that she is not diabetic * will have dietitian talk to patient (4) COVID-19: Code(s): U07.1 - COVID-19 Status: Acute Assessment and Plan: * patient tested positive on 05/01/2022 * neb treatments * supplemental oxygen wean to maintain a saturation greater than 90% * ABG shows respiratory alkalosis * pulmonary consult * consider remdesivir and dexamethasone * antibiotics for bacterial pneumonia * COVID vaccinated x2 with Pfizer * Antitussives (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 Moody * receives 3 monthly IgG infusions * next IgG infusion is for Monday Consulted Dr. moody and discussed with him. She is getting IgG infusion 05/14/2022 (6) Hyperlipidemia: Code(s): E78.5 - Hyperlipidemia, unspecified Status: Acute Assessment and Plan: * continue home fenofibrate and pravastatin (7) Hypertension: Code(s): I10 - Essential (primary) hypertension Status: Acute Assessment and Plan: * current blood pressure 156/86 * continue home the tele some 120 p.o. daily, losartan 100 mg p.o.
--- NOTE | 2022-05-14 12:53 | PM.IMPN ---
Progress Note: A&P Assessment and Plan (1) Pneumonia: Code(s): J18.9 - Pneumonia, unspecified organism Status: Acute Assessment and Plan: CTA shows a patchy airspace opacity in the right upper lobe consistent with pneumonia chest x-ray shows airspace opacities in the right mid and lower lung zones WBCs elevated 12.6 azithromycin and ceftriaxone continued continue neb treatments sputum and blood culture ordered trend culture results adjust therapy to culture findings could be adjacent to COVID findings supplemental oxygen wean to maintain saturation greater than 90% trend SpO2 ABG shows a pH of 7.478, pCO2 at 28.8, PO2 of 67.6, HC03 of 20.9 and an oxygen saturation of 94.9% on 2 L nasal cannula, indication of respiratory alkalosis On home oxygen 4 L with activity Echo with EF more than 70% grade 1 diastolic dysfunction no pulmonary hypertension. No other valvular abnormality Sputum culture with Staph aureus. Will add vancomycin. Staph aureus automatic glove turner and former to be MSSA will change vancomycin to Ancef, no bacteremia present (2) Sepsis: Code(s): A41.9 - Sepsis, unspecified organism Status: Acute Assessment and Plan: patient meets sepsis criteria with an elevated respiratory rate of 29, leukocytosis of 12.6, tachycardia of heart rate in the 110-120, elevated lactate at 3.3 infectious source is pneumonia blood cultures pending sputum culture pending urine culture ordered continue IV ceftriaxone and azithromycin WBCs 12.6, trend labs pulmonary consult thank you for your help Add vancomycin for Staph aureus in sputum which will be changed to Ancef 05/13/2022 (3) Morbid obesity with BMI of 45.0-49.9, adult: Code(s): E66.01 - Morbid (severe) obesity due to excess calories; Z68.42 - Body mass index [BMI] 45.0-49.9, adult Status: Acute Assessment and Plan: patient has a BMI of 48.8 patient is really not interested in lifestyle changes patient does take Ozempic which is probably used for weight loss last A1c was 5.5 patient is requesting a regular diet as that she is not diabetic will have dietitian talk to patient (4) COVID-19: Code(s): U07.1 - COVID-19 Status: Acute Assessment and Plan: patient tested positive on 05/01/2022 neb treatments supplemental oxygen wean to maintain a saturation greater than 90% ABG shows respiratory alkalosis pulmonary consult consider remdesivir and dexamethasone antibiotics for bacterial pneumonia COVID vaccinated x2 with Pfizer Antitussives (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 Moody receives 3 monthly IgG infusions next IgG infusion is for Monday Consulted Dr. moody and discussed with him. She is getting IgG infusion 05/14/2022 (6) Hyperlipidemia: Code(s): E78.5 - Hyperlipidemia, unspecified Status: Acute Assessment and Plan: continue home fenofibrate and pravastatin (7) Hypertension: Code(s): I10 - Essential (primary) hypertension Status: Acute Assessment and Plan: current blood pressure 156/86 continue home the tele some 120 p.o. daily, losartan 100 mg p.o. daily trend blood pressure adjust therapy as indicated (8) Hypothyroid: Code(s): E03.9 - Hypothyroidism, unspecified Status: Acute Assessment and Plan: continue home levothyroxine 88 mcg daily adjust as indicated (9) Asthma with COPD: Code(s): J44.9 - Chronic obstructive pulmonary disease, unspecified Status: Acute Assessment and Plan: continue home Singulair, Symbicort, albuterol Trend respiratory status more than likely pneumonia not acute COPD exacerbation sh
[2022-05-14] MEDS: ceFAZolin 2 GM/D5W 50 ML 2 GM/50 ML BAG IVPB ×2 (13:18→21:23)
[2022-05-14 13:41] LABS: INR 1.2; Prothrombin Time 14.8 Seconds (11.1-14.7)
[2022-05-14 13:43] LABS: Alanine Aminotransferase 13 U/L (6-35); Estimated CRCL calculation 85 ml/min; Estimated Glomerular Filt Rate > 60
[2022-05-14 16:01] LABS: Glucose Point of Care 141 mg/dl (65-105)
[2022-05-14 18:26] LABS: Pneumococcal Antigen Urine Not Detected (Not Detected)
[2022-05-14] MEDS: FLUTICASONE/SALMETEROL 115-21 MCG INHALER 1 PUFF 2 PUFF INHALATION (20:10)
[2022-05-14] MEDS: REMDESIVIR 100 MG/NS 250 ML 100 MG/250 ML BAG 250 MG IVPB (21:57)
[2022-05-14] MEDS: BENZONATATE 100 MG CAPSULE 200 MG PO (21:58)
[2022-05-14 22:42] LABS: Glucose Point of Care 134 mg/dl (65-105)
[2022-05-15] VITALS (16 sets, daily range): BP systolic 123–140; BP diastolic 56–76; PULSE 60–91; RESP 15–22; TEMP 35.7–36.1; O2SAT 94–98
[2022-05-15] MEDS: traMADol HCL (*CRX) 50 MG TABLET PO (04:33)
[2022-05-15] MEDS: ceFAZolin 2 GM/D5W 50 ML 2 GM/50 ML BAG IVPB ×3 (05:57→20:59)
[2022-05-15] MEDS: LEVOTHYROXINE SODIUM 88 MCG TABLET PO (05:58)
[2022-05-15] MEDS: CENTRAL LINE FLUSH 10 ML IV PUSH ×3 (06:03→22:26)
[2022-05-15 06:27] LABS: Basophils Percent Auto 0.3 % (0.2-1.2); Hematocrit 38.7 % (37.0-47.0); Hemoglobin 12.3 g/dL (12.0-15.0); Immature Granulocyte Absolute 0.12 K/mm3 (0.00-0.031); Immature Granulocyte Percent A 1.9 % (0-0.5); Immature Platelet Fraction Pct 11.9 % (0.9-11.2); Lymphocytes Absolute Auto 0.78 K/mm3 (0.9-3.2); Lymphocytes Percent Auto 12.1 % (18.3-44.2); Mean Corpuscular HGB Conc 31.8 g/dl (32-36); Mean Corpuscular Hemoglobin 28.1 pg (26-34); Mean Corpuscular Volume 88.4 fl (80-100); Mean Platelet Volume 11.4 fl (7.4-10.4); Monocytes Absolute Auto 0.7 K/mm3 (0.1-0.6); Monocytes Percent Auto 10.4 % (2.6-8.5); Neutrophils Absolute Auto 4.9 K/mm3 (1.3-6.7); Neutrophils Percent Auto 75.3 % (45.5-73.1); Platelet Count Result 162 k/mm3 (150-375); Red Blood Count 4.38 M/mm3 (4.2-5.4); Red Cell Distribution Width 15.4 % (11.5-14.5); White Blood Count 6.5 K/mm3 (4.5-10.0)
[2022-05-15 06:29] LABS: INR 1.1; Prothrombin Time 13.4 Seconds (11.1-14.7)
[2022-05-15 06:32] LABS: Alanine Aminotransferase 10 U/L (6-35); Albumin Level 3.2 g/dL (3.5-5.1); Alkaline Phosphatase 59 U/L (38-126); Anion Gap -2 mmol/L (8-16); Aspartate Amino Transferase 16 U/L (14-36); Bilirubin,Total 0.3 mg/dL (0.2-1.3); Blood Urea Nitrogen 21 mg/dL (7-17); CRP 1.1 mg/dL (<1.0); Calcium 8.2 mg/dL (8.4-10.2); Carbon Dioxide 32 mmol/L (22-30); Chloride 103 mmol/L (98-107); Estimated CRCL calculation 85 ml/min; Estimated Glomerular Filt Rate > 60; Glucose 103 mg/dL (65-110); Magnesium 2.2 mg/dL (1.6-2.3); Potassium 3.9 mmol/L (3.4-5.0); Sodium 133 mmol/L (137-145)
[2022-05-15 07:16] LABS: Acanthocytes 1+ (NORMAL); Ovalocytes 1+ (NORMAL); Platelet Estimate Adequate (Adequate)
[2022-05-15] MEDS: UMECLIDINIUM BROMIDE 62.5 MCG ELLIPTA 1 PUFF INHALATION (07:28)
[2022-05-15] MEDS: FLUTICASONE/SALMETEROL 115-21 MCG INHALER 1 PUFF 2 PUFF INHALATION ×2 (07:28→19:20)
[2022-05-15 07:47] LABS: Glucose Point of Care 94 mg/dl (65-105)
[2022-05-15] MEDS: ENOXAPARIN 40 MG/0.4 ML SYRINGE SUB-Q (08:28)
[2022-05-15] MEDS: CHOLECALCIFEROL 1,000 UNITS TABLET 2000 UNITS PO (08:29)
[2022-05-15] MEDS: BENZONATATE 100 MG CAPSULE 200 MG PO (08:29)
[2022-05-15] MEDS: HYDROXYCHLOROQUINE SULFATE 200 MG TABLET PO (08:29)
[2022-05-15] MEDS: guaiFENesin 12 HR 600 MG TABCR PO (08:30)
[2022-05-15] MEDS: MONTELUKAST SODIUM 10 MG TABLET PO (08:30)
[2022-05-15] MEDS: LOSARTAN POTASSIUM 50 MG TABLET 100 MG PO (08:30)
[2022-05-15] MEDS: LEFLUNOMIDE 20 MG TABLET PO (08:30)
[2022-05-15] MEDS: PRAVASTATIN SODIUM 20 MG TABLET PO (08:30)
[2022-05-15] MEDS: busPIRone HCL 5 MG TABLET PO ×2 (08:30→16:37)
[2022-05-15] MEDS: SPIRONOLACTONE 50 MG TABLET PO (08:30)
[2022-05-15] MEDS: metFORMIN HCL XR 500 MG TAB.SR.24H PO (08:30)
[2022-05-15] MEDS: FENOFIBRATE,MICRONIZED 48 MG TABLET PO (08:30)
[2022-05-15] MEDS: LOTEPREDNOL ETABONATE 0.2% OPH 5 ML SUSP 1 DROP EACH EYE ×4 (08:31→20:56)
[2022-05-15] MEDS: FLUTICASONE PROPIONATE 0.05% NA SPR 16 GM BTL (*BKC) 2 SPRAY NASAL (08:31)
[2022-05-15 11:41] LABS: Glucose Point of Care 95 mg/dl (65-105)
--- NOTE | 2022-05-15 13:20 | P.PNIM_ITS ---
Progress Note: A&P Assessment and Plan (1) Pneumonia: Code(s): J18.9 - Pneumonia, unspecified organism Status: Acute Assessment and Plan: * CTA shows a patchy airspace opacity in the right upper lobe consistent with pneumonia * chest x-ray shows airspace opacities in the right mid and lower lung zones * WBCs elevated 12.6 * azithromycin and ceftriaxone continued * continue neb treatments * sputum and blood culture ordered * trend culture results * adjust therapy to culture findings * could be adjacent to COVID findings * supplemental oxygen wean to maintain saturation greater than 90% * trend SpO2 * ABG shows a pH of 7.478, pCO2 at 28.8, PO2 of 67.6, HC03 of 20.9 and an oxygen saturation of 94.9% on 2 L nasal cannula, indication of respiratory alkalosis On home oxygen 4 L with activity Echo with EF more than 70% grade 1 diastolic dysfunction no pulmonary hypertension. No other valvular abnormality Sputum culture with Staph aureus. Will add vancomycin. Staph aureus outreach manager to be MSSA will change vancomycin to Ancef, no bacteremia present Add acetylcysteine nebs to help as mucolytic agent (2) Sepsis: Code(s): A41.9 - Sepsis, unspecified organism Status: Acute Assessment and Plan: * patient meets sepsis criteria with an elevated respiratory rate of 29, leukocytosis of 12.6, tachycardia of heart rate in the 110-120, elevated lactate at 3.3 * infectious source is pneumonia * blood cultures pending * sputum culture pending * urine culture ordered * continue IV ceftriaxone and azithromycin * WBCs 12.6, trend labs * pulmonary consult thank you for your help Add vancomycin for Staph aureus in sputum which will be changed to Ancef 0 05/13/2022 (3) Morbid obesity with BMI of 45.0-49.9, adult: Code(s): E66.01 - Morbid (severe) obesity due to excess calories; Z68.42 - Body mass index [BMI] 45.0-49.9, adult Status: Acute Assessment and Plan: * patient has a BMI of 48.8 * patient is really not interested in lifestyle changes * patient does take Ozempic which is probably used for weight loss * last A1c was 5.5 * patient is requesting a regular diet as that she is not diabetic * will have dietitian talk to patient (4) COVID-19: Code(s): U07.1 - COVID-19 Status: Acute Assessment and Plan: * patient tested positive on 05/01/2022 * neb treatments * supplemental oxygen wean to maintain a saturation greater than 90% * ABG shows respiratory alkalosis * pulmonary consult * consider remdesivir and dexamethasone * antibiotics for bacterial pneumonia * COVID vaccinated x2 with Pfizer * Antitussives Remdesivir for 10 days course continue Decadron for 10 (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 Moody * receives 3 monthly IgG infusions * next IgG infusion is for Monday Consulted Dr. moody and discussed with him. Received IgG infusion 05/14/2022 (6) Hyperlipidemia: Code(s): E78.5 - Hyperlipidemia, unspecified Status: Acute Assessment and Plan: * continue home fenofibrate and pravastatin (7) Hypertension: Code(s): I10 - Essential (primary) hypertension Status: Acute Assessment and Plan: *
--- NOTE | 2022-05-15 13:20 | PM.IMPN ---
Progress Note: A&P Assessment and Plan (1) Pneumonia: Code(s): J18.9 - Pneumonia, unspecified organism Status: Acute Assessment and Plan: CTA shows a patchy airspace opacity in the right upper lobe consistent with pneumonia chest x-ray shows airspace opacities in the right mid and lower lung zones WBCs elevated 12.6 azithromycin and ceftriaxone continued continue neb treatments sputum and blood culture ordered trend culture results adjust therapy to culture findings could be adjacent to COVID findings supplemental oxygen wean to maintain saturation greater than 90% trend SpO2 ABG shows a pH of 7.478, pCO2 at 28.8, PO2 of 67.6, HC03 of 20.9 and an oxygen saturation of 94.9% on 2 L nasal cannula, indication of respiratory alkalosis On home oxygen 4 L with activity Echo with EF more than 70% grade 1 diastolic dysfunction no pulmonary hypertension. No other valvular abnormality Sputum culture with Staph aureus. Will add vancomycin. Staph aureus hospitalist nocturnist physician to be MSSA will change vancomycin to Ancef, no bacteremia present Add acetylcysteine nebs to help as mucolytic agent (2) Sepsis: Code(s): A41.9 - Sepsis, unspecified organism Status: Acute Assessment and Plan: patient meets sepsis criteria with an elevated respiratory rate of 29, leukocytosis of 12.6, tachycardia of heart rate in the 110-120, elevated lactate at 3.3 infectious source is pneumonia blood cultures pending sputum culture pending urine culture ordered continue IV ceftriaxone and azithromycin WBCs 12.6, trend labs pulmonary consult thank you for your help Add vancomycin for Staph aureus in sputum which will be changed to Ancef 05/13/2022 (3) Morbid obesity with BMI of 45.0-49.9, adult: Code(s): E66.01 - Morbid (severe) obesity due to excess calories; Z68.42 - Body mass index [BMI] 45.0-49.9, adult Status: Acute Assessment and Plan: patient has a BMI of 48.8 patient is really not interested in lifestyle changes patient does take Ozempic which is probably used for weight loss last A1c was 5.5 patient is requesting a regular diet as that she is not diabetic will have dietitian talk to patient (4) COVID-19: Code(s): U07.1 - COVID-19 Status: Acute Assessment and Plan: patient tested positive on 05/01/2022 neb treatments supplemental oxygen wean to maintain a saturation greater than 90% ABG shows respiratory alkalosis pulmonary consult consider remdesivir and dexamethasone antibiotics for bacterial pneumonia COVID vaccinated x2 with Pfizer Antitussives Remdesivir for 10 days course continue Decadron for 10 (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 Moody receives 3 monthly IgG infusions next IgG infusion is for Monday Consulted Dr. moody and discussed with him. Received IgG infusion 05/14/2022 (6) Hyperlipidemia: Code(s): E78.5 - Hyperlipidemia, unspecified Status: Acute Assessment and Plan: continue home fenofibrate and pravastatin (7) Hypertension: Code(s): I10 - Essential (primary) hypertension Status: Acute Assessment and Plan: current blood pressure 156/86 continue home the tele some 120 p.o. daily, losartan 100 mg p.o. daily trend blood pressure adjust therapy as indicated (8) Hypothyroid: Code(s): E03.9 - Hypothyroidism, unspecified Status: Acute Assessment and Plan: continue home levothyroxine 88 mcg daily adjust as indicated (9) Asthma with COPD: Code(s): J44.9 - Chronic obstructive pulmonary disease, unspecified Status: Acute Assessment and Plan: continue home Singulair, Symbicort, a
[2022-05-15 16:31] LABS: Glucose Point of Care 141 mg/dl (65-105)
[2022-05-15] MEDS: ALBUTEROL SULFATE (*SP) AEROSOL 1 PUFF 2 PUFF INHALATION (19:20)
[2022-05-15] MEDS: ACETYLCYSTEINE 20% INHAL SOLN 800 MG/4 ML VIAL 200 MG INHALATION (19:20)
[2022-05-15] MEDS: guaiFENesin 12 HR 600 MG TABCR 1200 MG PO (20:58)
[2022-05-15] MEDS: REMDESIVIR 100 MG/NS 250 ML 100 MG/250 ML BAG 250 MG IVPB (21:45)
[2022-05-16] VITALS (18 sets, daily range): BP systolic 119–145; BP diastolic 53–78; PULSE 66–90; RESP 16–20; TEMP 35.8–36.7; O2SAT 87–98
[2022-05-16] MEDS: ACETYLCYSTEINE 20% INHAL SOLN 800 MG/4 ML VIAL 200 MG INHALATION ×4 (01:27→21:07)
[2022-05-16] MEDS: ALBUTEROL SULFATE (*SP) AEROSOL 1 PUFF 2 PUFF INHALATION ×3 (01:27→14:22)
[2022-05-16] MEDS: traMADol HCL (*CRX) 50 MG TABLET PO ×2 (02:48→13:36)
[2022-05-16] MEDS: ceFAZolin 2 GM/D5W 50 ML 2 GM/50 ML BAG IVPB ×3 (05:59→20:11)
[2022-05-16] MEDS: LEVOTHYROXINE SODIUM 88 MCG TABLET PO (05:59)
[2022-05-16] MEDS: CENTRAL LINE FLUSH 10 ML IV PUSH ×3 (06:00→20:48)
[2022-05-16 06:20] LABS: Basophils Percent Auto 0.2 % (0.2-1.2); Hematocrit 39.1 % (37.0-47.0); Hemoglobin 12.7 g/dL (12.0-15.0); Immature Granulocyte Percent A 1.8 % (0-0.5); Lymphocytes Absolute Auto 0.68 K/mm3 (0.9-3.2); Lymphocytes Percent Auto 12.1 % (18.3-44.2); Mean Corpuscular HGB Conc 32.5 g/dl (32-36); Mean Corpuscular Hemoglobin 28.4 pg (26-34); Mean Corpuscular Volume 87.5 fl (80-100); Mean Platelet Volume 11.2 fl (7.4-10.4); Monocytes Absolute Auto 0.7 K/mm3 (0.1-0.6); Monocytes Percent Auto 12.1 % (2.6-8.5); Neutrophils Absolute Auto 4.2 K/mm3 (1.3-6.7); Neutrophils Percent Auto 73.8 % (45.5-73.1); Platelet Count Result 178 k/mm3 (150-375); Red Blood Count 4.47 M/mm3 (4.2-5.4); Red Cell Distribution Width 15.2 % (11.5-14.5); White Blood Count 5.6 K/mm3 (4.5-10.0)
[2022-05-16 06:31] LABS: Alanine Aminotransferase 9 U/L (6-35); Albumin Level 3.1 g/dL (3.5-5.1); Alkaline Phosphatase 57 U/L (38-126); Anion Gap 2 mmol/L (8-16); Aspartate Amino Transferase 22 U/L (14-36); Bilirubin,Total 0.4 mg/dL (0.2-1.3); Blood Urea Nitrogen 19 mg/dL (7-17); Calcium 8.4 mg/dL (8.4-10.2); Carbon Dioxide 31 mmol/L (22-30); Chloride 102 mmol/L (98-107); Estimated CRCL calculation 85 ml/min; Estimated Glomerular Filt Rate > 60; Glucose 115 mg/dL (65-110); Magnesium 2.2 mg/dL (1.6-2.3); Potassium 3.9 mmol/L (3.4-5.0); Sodium 135 mmol/L (137-145)
[2022-05-16 08:10] LABS: Glucose Point of Care 106 mg/dl (65-105)
[2022-05-16] MEDS: LORATADINE 10 MG TABLET PO (09:03)
[2022-05-16] MEDS: BENZONATATE 100 MG CAPSULE 200 MG PO (09:03)
[2022-05-16] MEDS: metFORMIN HCL XR 500 MG TAB.SR.24H PO (09:03)
[2022-05-16] MEDS: CELECOXIB 200 MG CAPSULE PO (09:03)
[2022-05-16] MEDS: cycloSPORINE 0.4 ML OPHTH SOLUTION 1 DROP EACH EYE (09:03)
[2022-05-16] MEDS: guaiFENesin 12 HR 600 MG TABCR 1200 MG PO ×2 (09:03→20:11)
[2022-05-16] MEDS: ENOXAPARIN 40 MG/0.4 ML SYRINGE SUB-Q (09:03)
[2022-05-16] MEDS: CHOLECALCIFEROL 1,000 UNITS TABLET 2000 UNITS PO (09:04)
[2022-05-16] MEDS: valACYclovir HCL 500 MG TABLET 1000 MG PO (09:04)
[2022-05-16] MEDS: FENOFIBRATE,MICRONIZED 48 MG TABLET PO (09:04)
[2022-05-16] MEDS: busPIRone HCL 5 MG TABLET PO ×2 (09:04→16:32)
[2022-05-16] MEDS: MONTELUKAST SODIUM 10 MG TABLET PO (09:04)
[2022-05-16] MEDS: PRAVASTATIN SODIUM 20 MG TABLET PO (09:05)
[2022-05-16] MEDS: LEFLUNOMIDE 20 MG TABLET PO (09:05)
[2022-05-16] MEDS: SPIRONOLACTONE 50 MG TABLET PO (09:05)
[2022-05-16] MEDS: PANTOPRAZOLE 40 MG TABLET PO (09:05)
[2022-05-16] MEDS: LOSARTAN POTASSIUM 50 MG TABLET 100 MG PO (09:05)
[2022-05-16] MEDS: FLUTICASONE PROPIONATE 0.05% NA SPR 16 GM BTL (*BKC) 2 SPRAY NASAL (09:06)
[2022-05-16] MEDS: HYDROXYCHLOROQUINE SULFATE 200 MG TABLET PO (09:06)
[2022-05-16] MEDS: LOTEPREDNOL ETABONATE 0.2% OPH 5 ML SUSP 1 DROP EACH EYE ×4 (09:09→20:11)
[2022-05-16] MEDS: FLUTICASONE/SALMETEROL 115-21 MCG INHALER 1 PUFF 2 PUFF INHALATION (09:26)
[2022-05-16] MEDS: UMECLIDINIUM BROMIDE 62.5 MCG ELLIPTA 1 PUFF INHALATION (09:26)
[2022-05-16 11:58] LABS: Glucose Point of Care 103 mg/dl (65-105)
--- NOTE | 2022-05-16 13:14 | P.PNIM_ITS ---
Progress Note: A&P Assessment and Plan (1) Pneumonia: Code(s): J18.9 - Pneumonia, unspecified organism Status: Acute Assessment and Plan: * CTA shows a patchy airspace opacity in the right upper lobe consistent with pneumonia * chest x-ray shows airspace opacities in the right mid and lower lung zones * WBCs elevated 12.6 * azithromycin and ceftriaxone continued * continue neb treatments * sputum and blood culture ordered * trend culture results * adjust therapy to culture findings * could be adjacent to COVID findings * supplemental oxygen wean to maintain saturation greater than 90% * trend SpO2 * ABG shows a pH of 7.478, pCO2 at 28.8, PO2 of 67.6, HC03 of 20.9 and an oxygen saturation of 94.9% on 2 L nasal cannula, indication of respiratory alkalosis On home oxygen 4 L with activity Echo with EF more than 70% grade 1 diastolic dysfunction no pulmonary hypertension. No other valvular abnormality Sputum culture with Staph aureus. Will add vancomycin. 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 MSSA will change vancomycin to Ancef, no bacteremia present Add acetylcysteine nebs to help as mucolytic agent 05/15/2022 Complete remdesivir course 3 more days left Decadron for 10 days Wean oxygen as tolerated Continue Ancef for MSSA pneumonia (2) Sepsis: Code(s): A41.9 - Sepsis, unspecified organism Status: Acute Assessment and Plan: * patient meets sepsis criteria with an elevated respiratory rate of 29, leukocytosis of 12.6, tachycardia of heart rate in the 110-120, elevated lactate at 3.3 * infectious source is pneumonia * blood cultures pending * sputum culture pending * urine culture ordered * continue IV ceftriaxone and azithromycin * WBCs 12.6, trend labs * pulmonary consult thank you for your help Add vancomycin for Staph aureus in sputum which will be changed to Ancef 05/13/2022 (3) Morbid obesity with BMI of 45.0-49.9, adult: Code(s): E66.01 - Morbid (severe) obesity due to excess calories; Z68.42 - Body mass index [BMI] 45.0-49.9, adult Status: Acute Assessment and Plan: * patient has a BMI of 48.8 * patient is really not interested in lifestyle changes * patient does take Ozempic which is probably used for weight loss * last A1c was 5.5 * patient is requesting a regular diet as that she is not diabetic * will have dietitian talk to patient (4) COVID-19: Code(s): U07.1 - COVID-19 Status: Acute Assessment and Plan: * patient tested positive on 05/01/2022 * neb treatments * supplemental oxygen wean to maintain a saturation greater than 90% * ABG shows respiratory alkalosis * pulmonary consult * consider remdesivir and dexamethasone * antibiotics for bacterial pneumonia * COVID vaccinated x2 with Pfizer * Antitussives Remdesivir for 10 days course continue Decadron for 10 (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 Moody * receives 3 monthly IgG infusions * next IgG infusion is for Monday Consulted Dr. moody and discussed with him. Received IgG infusion 05/14/2022 (6) Hyperlipidemia: Code(s): E78.5 - Hyperlipidemia, unspecified Status: Acute Assessment and Plan: * continue home fenofibrate and pravastatin
--- NOTE | 2022-05-16 13:14 | PM.IMPN ---
Progress Note: A&P Assessment and Plan (1) Pneumonia: Code(s): J18.9 - Pneumonia, unspecified organism Status: Acute Assessment and Plan: CTA shows a patchy airspace opacity in the right upper lobe consistent with pneumonia chest x-ray shows airspace opacities in the right mid and lower lung zones WBCs elevated 12.6 azithromycin and ceftriaxone continued continue neb treatments sputum and blood culture ordered trend culture results adjust therapy to culture findings could be adjacent to COVID findings supplemental oxygen wean to maintain saturation greater than 90% trend SpO2 ABG shows a pH of 7.478, pCO2 at 28.8, PO2 of 67.6, HC03 of 20.9 and an oxygen saturation of 94.9% on 2 L nasal cannula, indication of respiratory alkalosis On home oxygen 4 L with activity Echo with EF more than 70% grade 1 diastolic dysfunction no pulmonary hypertension. No other valvular abnormality Sputum culture with Staph aureus. Will add vancomycin. Staph aureus return agent airport to be MSSA will change vancomycin to Ancef, no bacteremia present Add acetylcysteine nebs to help as mucolytic agent 05/15/2022 Complete remdesivir course 3 more days left Decadron for 10 days Wean oxygen as tolerated Continue Ancef for MSSA pneumonia (2) Sepsis: Code(s): A41.9 - Sepsis, unspecified organism Status: Acute Assessment and Plan: patient meets sepsis criteria with an elevated respiratory rate of 29, leukocytosis of 12.6, tachycardia of heart rate in the 110-120, elevated lactate at 3.3 infectious source is pneumonia blood cultures pending sputum culture pending urine culture ordered continue IV ceftriaxone and azithromycin WBCs 12.6, trend labs pulmonary consult thank you for your help Add vancomycin for Staph aureus in sputum which will be changed to Ancef 05/13/2022 (3) Morbid obesity with BMI of 45.0-49.9, adult: Code(s): E66.01 - Morbid (severe) obesity due to excess calories; Z68.42 - Body mass index [BMI] 45.0-49.9, adult Status: Acute Assessment and Plan: patient has a BMI of 48.8 patient is really not interested in lifestyle changes patient does take Ozempic which is probably used for weight loss last A1c was 5.5 patient is requesting a regular diet as that she is not diabetic will have dietitian talk to patient (4) COVID-19: Code(s): U07.1 - COVID-19 Status: Acute Assessment and Plan: patient tested positive on 05/01/2022 neb treatments supplemental oxygen wean to maintain a saturation greater than 90% ABG shows respiratory alkalosis pulmonary consult consider remdesivir and dexamethasone antibiotics for bacterial pneumonia COVID vaccinated x2 with Pfizer Antitussives Remdesivir for 10 days course continue Decadron for 10 (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 Moody receives 3 monthly IgG infusions next IgG infusion is for Monday Consulted Dr. moody and discussed with him. Received IgG infusion 05/14/2022 (6) Hyperlipidemia: Code(s): E78.5 - Hyperlipidemia, unspecified Status: Acute Assessment and Plan: continue home fenofibrate and pravastatin (7) Hypertension: Code(s): I10 - Essential (primary) hypertension Status: Acute Assessment and Plan: current blood pressure 156/86 continue home the tele some 120 p.o. daily, losartan 100 mg p.o. daily trend blood pressure adjust therapy as indicated (8) Hypothyroid: Code(s): E03.9 - Hypothyroidism, unspecified Status: Acute Assessment and Plan: continue home levothyroxine 88 mcg daily adjust as indicated (9) Asthma with COPD: Code(s): J44.9 -
--- NOTE | 2022-05-16 14:11 | PM.PNPUL ---
Progress Note: A&P Assessment and Plan (1) Pneumonia: Code(s): J18.9 - Pneumonia, unspecified organism Status: Acute Assessment and Plan: patient is COVID positive on 05/01/2021. Treated with Paxil of it from and presented to the hospital on 05/09 with worsening dyspnea on exertion. Patient was started on dexamethasone and REMdesevere on 05/10/2022. Patient given ceftriaxone on 05/10 and azithromycin starting 05/10. Patient started on vancomycin on through 05/16/22. Patient's sputum grew out 0SSA and started on Ancef on 05/13 . patient is afebrile. White blood cell peaked at 16.0 on 05/11/2022. 05/16/22 patient states that she is maybe 15% improved since she was admitted to the hospital. Currently she is on 4 L nasal cannula saturations 94%. She continues on dexamethasone and Remdesivir started on 05/10 (today day 7). She is also on Ancef for O SSA in the sputum. white blood cell count is 5.6, she is afebrile. I will repeat a chest x-ray in the morning. I will discontinue azithromycin today as she has received 6 days. (2) Asthma with COPD: Code(s): J44.9 - Chronic obstructive pulmonary disease, unspecified Status: Acute Assessment and Plan: Patient has no wheezing on exam. Patient does state that she has difficulty with sputum and she is on acetylcysteine nebulized q.6 hours, guaifenesin 1200 mg b.i.d. Tessalon Perles 200 mg t.i.d. p.r.n., Advair, In cruise, and montelukast 10 mg a day. 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 (4) Sleep apnea: Qualifiers: Sleep apnea type: obstructive Qualified Code(s): G47.33 - Obstructive sleep apnea (adult) (pediatric) Code(s): G47.30 - Sleep apnea, unspecified Status: Acute Assessment and Plan: She is using her home CPAP machine with 3 L bleed in. Tolerating this well. I will attempt to obtain a download. Subjective Date/time seen: 05/16/22 14:11 Interval history: 05/10/22 NEW: Karen Em is a 57 year old female followed in our pulmonary clinic, last visit was with Dr Maxwell March 31; she has asthma, RA, IgG deficiency, YOON on CPAP, was admitted through the ER with increased shortness of breath with a cough; shewas in the ER May 01 with the same. She had COVID (+) on lab testing May 01 when she was in the ED, treated with Levaquin and prednisone but she did not know she had COVID. She saw her supervisor [employer] since then, was treated with azithromycin when she was told she had COVID. She presented again to the ER for increased symptoms including fatigue, shortness of breath, cough with green secretions and chills. She has pleuritic chest pain in the sternum with coughing and deep breathing.? She has tachycardia heart rate 115, tachypnea respiratory rate 26.? She has an elevated white blood cell count and increased lactic acid.? She meets criteria for sepsis with infectious source COVID pneumonia. PMH:? She does not have diabetes. She has steroid-induced hyperglycemia. She gives herself IgG infusions at home for IgG deficiency. RA- followed by Dr Ogden ; Dr Maxwell's note from her pulmonary visit March 31 showed that she was off everything except Simponi / golimumab, tramadol and celebrex. Her admission med reconciliation shows that she takes hydroxychloroquine 200 mg a day, leflunomide 20 mg a day. She has asthma on Spiriva 2.5, two puffs a day, montelukast, and was on Symbicort 160/4.5 back in the fall as well as prednisone 2.5 mg TID which is not a pulmonary dose of steroids, so I am assuming this was for her RA. She reports that her worst RA joints now are her hip and back. ? ? 05/16/22 patient states that she is maybe 15% improved since she was admitted to the hospital. Currently she is on 4 L nasal cannula saturations 94%. She continues on dexameth
[2022-05-16] MEDS: ALTEPLASE 2 MG VIAL (CATHFLO) IV PUSH (16:09)
[2022-05-16] MEDS: WATER, STERILE FOR INJECTION 10 ML VIAL XX (16:32)
[2022-05-16] MEDS: REMDESIVIR 100 MG/NS 250 ML 100 MG/250 ML BAG 250 MG IVPB (20:45)
[2022-05-17] VITALS (16 sets, daily range): BP systolic 117–135; BP diastolic 58–63; PULSE 66–89; RESP 18–20; TEMP 35.6–36.7; O2SAT 96–99
[2022-05-17] MEDS: traMADol HCL (*CRX) 50 MG TABLET PO (02:08)
[2022-05-17] MEDS: ACETYLCYSTEINE 20% INHAL SOLN 800 MG/4 ML VIAL 200 MG INHALATION ×4 (02:33→19:40)
[2022-05-17] MEDS: LEVOTHYROXINE SODIUM 88 MCG TABLET PO (05:38)
[2022-05-17] MEDS: ceFAZolin 2 GM/D5W 50 ML 2 GM/50 ML BAG IVPB ×3 (05:39→22:36)
[2022-05-17] MEDS: CENTRAL LINE FLUSH 10 ML IV PUSH ×3 (05:39→22:36)
[2022-05-17 06:08] LABS: Alanine Aminotransferase 10 U/L (6-35); Estimated CRCL calculation 85 ml/min; Estimated Glomerular Filt Rate > 60
[2022-05-17 06:56] LABS: INR 1.1; Prothrombin Time 13.6 Seconds (11.1-14.7)
[2022-05-17 07:35] LABS: Glucose Point of Care 101 mg/dl (65-105)
[2022-05-17] MEDS: UMECLIDINIUM BROMIDE 62.5 MCG ELLIPTA 1 PUFF INHALATION (08:01)
[2022-05-17] MEDS: FLUTICASONE/SALMETEROL 115-21 MCG INHALER 1 PUFF 2 PUFF INHALATION ×2 (08:01→19:40)
[2022-05-17] MEDS: BENZONATATE 100 MG CAPSULE 200 MG PO (09:29)
[2022-05-17] MEDS: guaiFENesin 12 HR 600 MG TABCR 1200 MG PO ×2 (09:29→20:24)
[2022-05-17] MEDS: MONTELUKAST SODIUM 10 MG TABLET PO (09:30)
[2022-05-17] MEDS: LORATADINE 10 MG TABLET PO (09:30)
[2022-05-17] MEDS: busPIRone HCL 5 MG TABLET PO ×2 (09:30→17:53)
[2022-05-17] MEDS: CHOLECALCIFEROL 1,000 UNITS TABLET 2000 UNITS PO (09:30)
[2022-05-17] MEDS: HYDROXYCHLOROQUINE SULFATE 200 MG TABLET PO (09:30)
[2022-05-17] MEDS: CELECOXIB 200 MG CAPSULE PO (09:30)
[2022-05-17] MEDS: SPIRONOLACTONE 50 MG TABLET PO (09:30)
[2022-05-17] MEDS: LOSARTAN POTASSIUM 50 MG TABLET 100 MG PO (09:30)
[2022-05-17] MEDS: valACYclovir HCL 500 MG TABLET 1000 MG PO (09:31)
[2022-05-17] MEDS: metFORMIN HCL XR 500 MG TAB.SR.24H PO (09:31)
[2022-05-17] MEDS: PANTOPRAZOLE 40 MG TABLET PO (09:31)
[2022-05-17] MEDS: PRAVASTATIN SODIUM 20 MG TABLET PO (09:32)
[2022-05-17] MEDS: ENOXAPARIN 40 MG/0.4 ML SYRINGE SUB-Q (09:32)
[2022-05-17] MEDS: cycloSPORINE 0.4 ML OPHTH SOLUTION 1 DROP EACH EYE (09:32)
[2022-05-17] MEDS: FLUTICASONE PROPIONATE 0.05% NA SPR 16 GM BTL (*BKC) 2 SPRAY NASAL (09:32)
[2022-05-17] MEDS: LOTEPREDNOL ETABONATE 0.2% OPH 5 ML SUSP 1 DROP EACH EYE (09:44)
--- NOTE | 2022-05-17 10:07 | PM.PNPUL ---
Progress Note: A&P Assessment and Plan (1) Pneumonia: Code(s): J18.9 - Pneumonia, unspecified organism Status: Acute Assessment and Plan: patient is COVID positive on 05/01/2021. Treated with Paxil of it from 05 06- and presented to the hospital on 05/09 with worsening dyspnea on exertion. Patient was started on dexamethasone and REMdesevere on 05/10/2022. Patient given ceftriaxone on 05/10 and azithromycin starting 05/10. Patient started on vancomycin on through 05/16/22. Patient's sputum grew out 0SSA and started on Ancef on 05/13 . patient is afebrile. White blood cell peaked at 16.0 on 05/11/2022. 05/16/22 patient states that she is maybe 15% improved since she was admitted to the hospital. Currently she is on 4 L nasal cannula saturations 94%. She continues on dexamethasone and Remdesivir started on 05/10 (today day 7). She is also on Ancef for O SSA in the sputum. white blood cell count is 5.6, she is afebrile. I will repeat a chest x-ray in the morning. I will discontinue azithromycin today as she has received 6 days. 05/17/22 Patient is slowly improving and states she has 18% back to her baseline. She has thick sputum that is improved with the Mucomyst nebulizers. She has no wheezing. Creatinine is 0.8. Currently on 4 L nasal cannula saturations 97%. She is afebrile. Chest x-ray today demonstrated improved opacities in the right lower lobe. on ceftriaxone from 05/10 to 05/13, Vanco 05/13 through 05/16, and ancef currently. Day 8 of coverage for [facility] EU[facility]. Continue for now. (2) Asthma with COPD: Code(s): J44.9 - Chronic obstructive pulmonary disease, unspecified Status: Acute Assessment and Plan: 05/16 Patient has no wheezing on exam. Patient does state that she has difficulty with sputum and she is on acetylcysteine nebulized q.6 hours, guaifenesin 1200 mg b.i.d. Tessalon Perles 200 mg t.i.d. p.r.n., Advair, Incruse, and montelukast 10 mg a day. 05/17 Continue current regimen. 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 (4) Sleep apnea: Qualifiers: Sleep apnea type: obstructive Qualified Code(s): G47.33 - Obstructive sleep apnea (adult) (pediatric) Code(s): G47.30 - Sleep apnea, unspecified Status: Acute Assessment and Plan: 05/16 She is using her home CPAP machine with 3 L bleed in. Tolerating this well. I will attempt to obtain a download. 05/17 patient is currently using her home CPAP 7 with nasal pillows and 3 L bleed in. She is tolerating this well. I obtain a download from 04/16/2022 through 05/15/2022 through [employer] in her DME is [facility] [employer]. Patient is on a CPAP 7. Her % of days with usage greater than or equal to 4 hours is 93.3%. Her average usage on days used is 7 hours and 30 minutes. Her AHI is 0.6. I interpret this download as excellent compliance with adequate pressures. Tonight I will obtain an overnight oximetry on her home unit with 2 L bleed in To assess her oxygenation at night. Subjective Date/time seen: 05/17/22 10:07 Interval history: 05/10/22 NEW: Karen Em is a 57 year old female followed in our pulmonary clinic, last visit was with Dr Maxwell March 31; she has asthma, RA, IgG deficiency, YOON on CPAP, was admitted through the ER with increased shortness of breath with a cough; shewas in the ER May 01 with the same. She had COVID (+) on lab testing May 01 when she was in the ED, treated with Levaquin and prednisone but she did not know she had COVID. She saw her advanced manufacturing consultant since then, was treated with azithromycin when she was told she had COVID. She presented again to the ER for increased symptoms including fatigue, shortness of breath, cough with green secretions and chills. She has pleuritic chest pain in the sternum w
[2022-05-17] MEDS: LEFLUNOMIDE 20 MG TABLET PO (10:14)
[2022-05-17] MEDS: FENOFIBRATE,MICRONIZED 48 MG TABLET PO (10:14)
--- NOTE | 2022-05-17 11:25 | PCNWS ---
Weekly nutritional screen. Patient is tolerating current diet with adequate intake (normally eating 100% of meals). No weight loss reported. No nutritional needs at this time.
[2022-05-17 11:26] LABS: Glucose Point of Care 139 mg/dl (65-105)
--- NOTE | 2022-05-17 13:23 | P.PNIM_ITS ---
Progress Note: A&P Assessment and Plan (1) Pneumonia: Code(s): J18.9 - Pneumonia, unspecified organism Status: Acute Assessment and Plan: * CTA shows a patchy airspace opacity in the right upper lobe consistent with pneumonia * chest x-ray shows airspace opacities in the right mid and lower lung zones * WBCs elevated 12.6 * azithromycin and ceftriaxone continued * continue neb treatments * sputum and blood culture ordered * trend culture results * adjust therapy to culture findings * could be adjacent to COVID findings * supplemental oxygen wean to maintain saturation greater than 90% * trend SpO2 * ABG shows a pH of 7.478, pCO2 at 28.8, PO2 of 67.6, HC03 of 20.9 and an oxygen saturation of 94.9% on 2 L nasal cannula, indication of respiratory alkalosis On home oxygen 4 L with activity Echo with EF more than 70% grade 1 diastolic dysfunction no pulmonary hypertension. No other valvular abnormality Sputum culture with Staph aureus. Will add vancomycin. Staph aureus outreach assistant to be MSSA will change vancomycin to Ancef, no bacteremia present Add acetylcysteine nebs to help as mucolytic agent 05/15/2022 Complete remdesivir course to complete 10 days total course Decadron for 10 days total Wean oxygen as tolerated Continue Ancef for MSSA pneumonia (2) Sepsis: Code(s): A41.9 - Sepsis, unspecified organism Status: Acute Assessment and Plan: * patient meets sepsis criteria with an elevated respiratory rate of 29, leukocytosis of 12.6, tachycardia of heart rate in the 110-120, elevated lactate at 3.3 * infectious source is pneumonia * blood cultures pending * sputum culture pending * urine culture ordered * continue IV ceftriaxone and azithromycin * WBCs 12.6, trend labs * pulmonary consult thank you for your help Add vancomycin for Staph aureus in sputum which will be changed to Ancef 05/13/2022 (3) Morbid obesity with BMI of 45.0-49.9, adult: Code(s): E66.01 - Morbid (severe) obesity due to excess calories; Z68.42 - Body mass index [BMI] 45.0-49.9, adult Status: Acute Assessment and Plan: * patient has a BMI of 48.8 * patient is really not interested in lifestyle changes * patient does take Ozempic which is probably used for weight loss * last A1c was 5.5 * patient is requesting a regular diet as that she is not diabetic * will have dietitian talk to patient (4) COVID-19: Code(s): U07.1 - COVID-19 Status: Acute Assessment and Plan: * patient tested positive on 05/01/2022 * neb treatments * supplemental oxygen wean to maintain a saturation greater than 90% * ABG shows respiratory alkalosis * pulmonary consult * consider remdesivir and dexamethasone * antibiotics for bacterial pneumonia * COVID vaccinated x2 with Pfizer * Antitussives Remdesivir for 10 days course continue Decadron for 10 (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 Moody * receives 3 monthly IgG infusions * next IgG infusion is for Monday Consulted Dr. moody and discussed with him. Received IgG infusion 05/14/2022 (6) Hyperlipidemia: Code(s): E78.5 - Hyperlipidemia, unspecified Status: Acute Assessment and Plan: * continue home fenofibrate and pravastatin
--- NOTE | 2022-05-17 13:23 | PM.IMPN ---
Progress Note: A&P Assessment and Plan (1) Pneumonia: Code(s): J18.9 - Pneumonia, unspecified organism Status: Acute Assessment and Plan: CTA shows a patchy airspace opacity in the right upper lobe consistent with pneumonia chest x-ray shows airspace opacities in the right mid and lower lung zones WBCs elevated 12.6 azithromycin and ceftriaxone continued continue neb treatments sputum and blood culture ordered trend culture results adjust therapy to culture findings could be adjacent to COVID findings supplemental oxygen wean to maintain saturation greater than 90% trend SpO2 ABG shows a pH of 7.478, pCO2 at 28.8, PO2 of 67.6, HC03 of 20.9 and an oxygen saturation of 94.9% on 2 L nasal cannula, indication of respiratory alkalosis On home oxygen 4 L with activity Echo with EF more than 70% grade 1 diastolic dysfunction no pulmonary hypertension. No other valvular abnormality Sputum culture with Staph aureus. Will add vancomycin. Staph aureus stock turner to be MSSA will change vancomycin to Ancef, no bacteremia present Add acetylcysteine nebs to help as mucolytic agent 05/15/2022 Complete remdesivir course to complete 10 days total course Decadron for 10 days total Wean oxygen as tolerated Continue Ancef for MSSA pneumonia (2) Sepsis: Code(s): A41.9 - Sepsis, unspecified organism Status: Acute Assessment and Plan: patient meets sepsis criteria with an elevated respiratory rate of 29, leukocytosis of 12.6, tachycardia of heart rate in the 110-120, elevated lactate at 3.3 infectious source is pneumonia blood cultures pending sputum culture pending urine culture ordered continue IV ceftriaxone and azithromycin WBCs 12.6, trend labs pulmonary consult thank you for your help Add vancomycin for Staph aureus in sputum which will be changed to Ancef 05/13/2022 (3) Morbid obesity with BMI of 45.0-49.9, adult: Code(s): E66.01 - Morbid (severe) obesity due to excess calories; Z68.42 - Body mass index [BMI] 45.0-49.9, adult Status: Acute Assessment and Plan: patient has a BMI of 48.8 patient is really not interested in lifestyle changes patient does take Ozempic which is probably used for weight loss last A1c was 5.5 patient is requesting a regular diet as that she is not diabetic will have dietitian talk to patient (4) COVID-19: Code(s): U07.1 - COVID-19 Status: Acute Assessment and Plan: patient tested positive on 05/01/2022 neb treatments supplemental oxygen wean to maintain a saturation greater than 90% ABG shows respiratory alkalosis pulmonary consult consider remdesivir and dexamethasone antibiotics for bacterial pneumonia COVID vaccinated x2 with Pfizer Antitussives Remdesivir for 10 days course continue Decadron for 10 (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 Moody receives 3 monthly IgG infusions next IgG infusion is for Monday Consulted Dr. moody and discussed with him. Received IgG infusion 05/14/2022 (6) Hyperlipidemia: Code(s): E78.5 - Hyperlipidemia, unspecified Status: Acute Assessment and Plan: continue home fenofibrate and pravastatin (7) Hypertension: Code(s): I10 - Essential (primary) hypertension Status: Acute Assessment and Plan: current blood pressure 156/86 continue home the tele some 120 p.o. daily, losartan 100 mg p.o. daily trend blood pressure adjust therapy as indicated (8) Hypothyroid: Code(s): E03.9 - Hypothyroidism, unspecified Status: Acute Assessment and Plan: continue home levothyroxine 88 mcg daily adjust as indicated (9) Asthma with COPD:
--- NOTE | 2022-05-17 13:40 | PCNSR ---
On 05/17/22, the student, Eneida Sanderson, provided care and completed [facility] documentation on this patient. I have reviewed the student's documentation and agree with the findings.
[2022-05-17 16:12] LABS: Glucose Point of Care 116 mg/dl (65-105)
[2022-05-17] MEDS: REMDESIVIR 100 MG/NS 250 ML 100 MG/250 ML BAG 250 MG IVPB (20:25)
[2022-05-17] MEDS: ALTEPLASE 2 MG VIAL (CATHFLO) IV PUSH (20:51)
[2022-05-17 21:23] LABS: Legionella pneumophila Ag Ur Not Detected (Not Detected)
[2022-05-18] VITALS (20 sets, daily range): BP systolic 122–149; BP diastolic 79–94; PULSE 69–106; RESP 14–20; TEMP 36.2–36.8; O2SAT 85–100
--- NOTE | 2022-05-18 03:13 | PCRCNOTE ---
0200 UPD not given due to pt being on sleep study. Next available administration is 0800.
[2022-05-18] MEDS: LEVOTHYROXINE SODIUM 88 MCG TABLET PO (06:14)
[2022-05-18] MEDS: ceFAZolin 2 GM/D5W 50 ML 2 GM/50 ML BAG IVPB ×3 (06:15→21:42)
[2022-05-18] MEDS: CENTRAL LINE FLUSH 10 ML IV PUSH ×3 (06:15→21:43)
[2022-05-18 06:33] LABS: INR 1.1; Prothrombin Time 13.3 Seconds (11.1-14.7)
[2022-05-18 06:39] LABS: Alanine Aminotransferase 9 U/L (6-35); Estimated CRCL calculation 96 ml/min; Estimated Glomerular Filt Rate > 60
[2022-05-18 07:36] LABS: Glucose Point of Care 95 mg/dl (65-105)
[2022-05-18] MEDS: ACETYLCYSTEINE 20% INHAL SOLN 800 MG/4 ML VIAL 200 MG INHALATION ×3 (08:49→20:59)
[2022-05-18] MEDS: FLUTICASONE/SALMETEROL 115-21 MCG INHALER 1 PUFF 2 PUFF INHALATION ×2 (08:49→20:59)
[2022-05-18] MEDS: UMECLIDINIUM BROMIDE 62.5 MCG ELLIPTA 1 PUFF INHALATION (08:49)
[2022-05-18] MEDS: valACYclovir HCL 500 MG TABLET 1000 MG PO (09:12)
[2022-05-18] MEDS: metFORMIN HCL XR 500 MG TAB.SR.24H PO (09:12)
[2022-05-18] MEDS: ENOXAPARIN 40 MG/0.4 ML SYRINGE SUB-Q (09:12)
[2022-05-18] MEDS: CHOLECALCIFEROL 1,000 UNITS TABLET 2000 UNITS PO (09:12)
[2022-05-18] MEDS: MONTELUKAST SODIUM 10 MG TABLET PO (09:13)
[2022-05-18] MEDS: LOSARTAN POTASSIUM 50 MG TABLET 100 MG PO (09:13)
[2022-05-18] MEDS: LORATADINE 10 MG TABLET PO (09:13)
[2022-05-18] MEDS: LEFLUNOMIDE 20 MG TABLET PO (09:13)
[2022-05-18] MEDS: CELECOXIB 200 MG CAPSULE PO (09:13)
[2022-05-18] MEDS: FENOFIBRATE,MICRONIZED 48 MG TABLET PO (09:13)
[2022-05-18] MEDS: cycloSPORINE 0.4 ML OPHTH SOLUTION 1 DROP EACH EYE (09:13)
[2022-05-18] MEDS: BENZONATATE 100 MG CAPSULE 200 MG PO (09:13)
[2022-05-18] MEDS: SPIRONOLACTONE 50 MG TABLET PO (09:14)
[2022-05-18] MEDS: guaiFENesin 12 HR 600 MG TABCR 1200 MG PO ×2 (09:14→20:09)
[2022-05-18] MEDS: HYDROXYCHLOROQUINE SULFATE 200 MG TABLET PO (09:14)
[2022-05-18] MEDS: PRAVASTATIN SODIUM 20 MG TABLET PO (09:14)
[2022-05-18] MEDS: PANTOPRAZOLE 40 MG TABLET PO (09:14)
[2022-05-18] MEDS: busPIRone HCL 5 MG TABLET PO ×2 (09:14→17:44)
[2022-05-18] MEDS: FLUTICASONE PROPIONATE 0.05% NA SPR 16 GM BTL (*BKC) 2 SPRAY NASAL (09:15)
--- NOTE | 2022-05-18 11:06 | HOMEO2EVAL ---
Evaluation was performed at [facility] Home Oxygen Evaluation RC: Home Oxygen (O2) Evaluation Start: 05/18/22 09:11 Freq: ONCE Status: Active Protocol: RPE Activity Type Activity Date Activity User E-sign Co-sign Detail Recorded Client Recorded Date Recorded By Document 05/18/22 09:30 [email or web address] 05/18/22 11:06 PKH Document 05/18/22 09:35 [email or web address] 05/18/22 11:06 PKH Document 05/18/22 09:40 [email or web address] [email or web address] 05/18/22 11:06 PKH Document 05/18/22 09:45 [email or web address] [email or web address] 05/18/22 11:06 PKH Document 05/18/22 09:50 [email or web address] [email or web address] 05/18/22 11:06 PKH Document 05/18/22 10:05 [email or web address] [email or web address] 05/18/22 11:06 PKH 05/18/22 05/18/22 05/18/22 09:30 09:35 09:40 Home O2 Evaluation Test Phase Resting Exercise Exercise Oxygen Delivery Room Air Room Air Nasal Cannula Oxygen Flow Rate (L/min) 1 Pulse Oximetry (90-100 %) 94 85 L 86 L Pulse Rate (60-100 beats/min) 88 102 H 103 H Activity Tolerance Ambulation Distance (feet) Ambulation Distance (meters) Treatment Charges O2 Evaluation - Inpatient 05/18/22 05/18/22 05/18/22 09:45 09:50 10:05 Home O2 Evaluation Test Phase Exercise Exercise Resting Oxygen Delivery Nasal Cannula Nasal Cannula Room Air Oxygen Flow Rate (L/min) 2 3 Pulse Oximetry (90-100 %) 88 L 91 93 Pulse Rate (60-100 beats/min) 106 H 89 Activity Tolerance Fair Ambulation Distance (feet) 500 Ambulation Distance (meters) 152.39 Treatment Charges
--- NOTE | 2022-05-18 11:21 | PCRCNOTE ---
HOME O2 EVAL COMPLETE, PT REQUIRES 3 L WITH ACTIVITY. PT HAS A PORTABLE CONCENTRATOR FOR DISCHARGE. PT TO CALL [facility] AFTER DISCHARGE TO GET A NEW PORTABLE CONCENTRATOR.
--- NOTE | 2022-05-18 11:23 | PM.PNPUL ---
Progress Note: A&P Assessment and Plan (1) Pneumonia: Code(s): J18.9 - Pneumonia, unspecified organism Status: Acute Assessment and Plan: patient is COVID positive on 05/01/2021. Treated with Paxil of it from and presented to the hospital on 05/09 with worsening dyspnea on exertion. Patient was started on dexamethasone and REMdesevere on 05/10/2022. Patient given ceftriaxone on 05/10 and azithromycin starting 05/10. Patient started on vancomycin on through 05/16/22. Patient's sputum grew out 0SSA and started on Ancef on 05/13 . patient is afebrile. White blood cell peaked at 16.0 on 05/11/2022. 05/16/22 patient states that she is maybe 15% improved since she was admitted to the hospital. Currently she is on 4 L nasal cannula saturations 94%. She continues on dexamethasone and Remdesivir started on 05/10 (today day 7). She is also on Ancef for O SSA in the sputum. white blood cell count is 5.6, she is afebrile. I will repeat a chest x-ray in the morning. I will discontinue azithromycin today as she has received 6 days. 05/17/22 Patient is slowly improving and states she has 18% back to her baseline. She has thick sputum that is improved with the Mucomyst nebulizers. She has no wheezing. Creatinine is 0.8. Currently on 4 L nasal cannula saturations 97%. She is afebrile. Chest x-ray today demonstrated improved opacities in the right lower lobe. on ceftriaxone from 05/10 to 05/13, Vanco 05/13 through 05/16, and ancef currently. Day 8 of coverage for MARIA EUGENIA. Continue for now. 05/18 Patient continues to slowly improve. States she has 24% back to her baseline. The sputum is improving and is less thick any more easily expectorated. She has no hemoptysis. She is afebrile. Continue Ancef. Currently the patient is on room air with saturations 93% at rest. She is on day 9 of REM de severe and dexamethasone. I will order a home O2 assessment in anticipation of discharge tomorrow After her 10th day of REMdesever and dexamethasone. (2) Asthma with COPD: Code(s): J44.9 - Chronic obstructive pulmonary disease, unspecified Status: Acute Assessment and Plan: 05/16 Patient has no wheezing on exam. Patient does state that she has difficulty with sputum and she is on acetylcysteine nebulized q.6 hours, guaifenesin 1200 mg b.i.d. Tessalon Perles 200 mg t.i.d. p.r.n., Advair, Incruse, and montelukast 10 mg a day. 05/17 Continue current regimen. 05/18 continue inhalers. 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 (4) Sleep apnea: Qualifiers: Sleep apnea type: obstructive Qualified Code(s): G47.33 - Obstructive sleep apnea (adult) (pediatric) Code(s): G47.30 - Sleep apnea, unspecified Status: Acute Assessment and Plan: 05/16 She is using her home CPAP machine with 3 L bleed in. Tolerating this well. I will attempt to obtain a download. 05/17 patient is currently using her home CPAP 7 with nasal pillows and 3 L bleed in. She is tolerating this well. I obtain a download from 04/16/2022 through 05/15/2022 through [employer] in her DME is [facility] [employer]. Patient is on a CPAP 7. Her % of days with usage greater than or equal to 4 hours is 93.3%. Her average usage on days used is 7 hours and 30 minutes. Her AHI is 0.6. I interpret this download as excellent compliance with adequate pressures. Alyson I will obtain an overnight oximetry on her home unit with 2 L bleed in To assess her oxygenation at night. 05/18 Patient had an overnight oximetry last night on her home CPAP 7 and was started out on 2 L and 1/[address] through the night she was turned to room air. Baseline saturation 97%. Time with saturation less than or equal to 88% was 0 minutes. She will need no oxygen at
--- NOTE | 2022-05-18 11:37 | P.PNIM_ITS ---
Progress Note: A&P Assessment and Plan (1) Pneumonia: Code(s): J18.9 - Pneumonia, unspecified organism Status: Acute Assessment and Plan: * CTA shows a patchy airspace opacity in the right upper lobe consistent with pneumonia * chest x-ray shows airspace opacities in the right mid and lower lung zones * WBCs elevated 12.6 * azithromycin and ceftriaxone continued * continue neb treatments * sputum and blood culture ordered * trend culture results * adjust therapy to culture findings * could be adjacent to COVID findings * supplemental oxygen wean to maintain saturation greater than 90% * trend SpO2 * ABG shows a pH of 7.478, pCO2 at 28.8, PO2 of 67.6, HC03 of 20.9 and an oxygen saturation of 94.9% on 2 L nasal cannula, indication of respiratory alkalosis On home oxygen 4 L with activity Echo with EF more than 70% grade 1 diastolic dysfunction no pulmonary hypertension. No other valvular abnormality Sputum culture with Staph aureus. Will add vancomycin. Staph aureus glove turner and former to be MSSA will change vancomycin to Ancef, no bacteremia present Add acetylcysteine nebs to help as mucolytic agent 05/15/2022 Complete remdesivir course to complete 10 days total course Decadron for 10 days total Wean oxygen as tolerated Continue Ancef for MSSA pneumonia, will discharge on oral doxycycline if okay with pulmonology (2) Sepsis: Code(s): A41.9 - Sepsis, unspecified organism Status: Acute Assessment and Plan: * patient meets sepsis criteria with an elevated respiratory rate of 29, leukocytosis of 12.6, tachycardia of heart rate in the 110-120, elevated lactate at 3.3 * infectious source is pneumonia * blood cultures pending * sputum culture pending * urine culture ordered * continue IV ceftriaxone and azithromycin * WBCs 12.6, trend labs * pulmonary consult thank you for your help Add vancomycin for Staph aureus in sputum which will be changed to Ancef 05/13/2022 (3) Morbid obesity with BMI of 45.0-49.9, adult: Code(s): E66.01 - Morbid (severe) obesity due to excess calories; Z68.42 - Body mass index [BMI] 45.0-49.9, adult Status: Acute Assessment and Plan: * patient has a BMI of 48.8 * patient is really not interested in lifestyle changes * patient does take Ozempic which is probably used for weight loss * last A1c was 5.5 (4) COVID-19: Code(s): U07.1 - COVID-19 Status: Acute Assessment and Plan: * patient tested positive on 05/01/2022 * neb treatments * supplemental oxygen wean to maintain a saturation greater than 90% * ABG shows respiratory alkalosis * pulmonary consult * consider remdesivir and dexamethasone * antibiotics for bacterial pneumonia * COVID vaccinated x2 with Pfizer * Antitussives Remdesivir for 10 days course continue Decadron for 10, last day May 19, 2022 (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 Moody * receives 3 monthly IgG infusions * next IgG infusion is for Monday Consulted Dr. moody and discussed with him. Received IgG infusion 05/14/2022 (6) Hyperlipidemia: Code(s): E78.5 - Hyperlipidemia, unspecified Status: Acute (7) Hypertension: Code(s): I10 - Essential (primary) hypertension Status: Acute
--- NOTE | 2022-05-18 11:37 | PM.IMPN ---
Progress Note: A&P Assessment and Plan (1) Pneumonia: Code(s): J18.9 - Pneumonia, unspecified organism Status: Acute Assessment and Plan: CTA shows a patchy airspace opacity in the right upper lobe consistent with pneumonia chest x-ray shows airspace opacities in the right mid and lower lung zones WBCs elevated 12.6 azithromycin and ceftriaxone continued continue neb treatments sputum and blood culture ordered trend culture results adjust therapy to culture findings could be adjacent to COVID findings supplemental oxygen wean to maintain saturation greater than 90% trend SpO2 ABG shows a pH of 7.478, pCO2 at 28.8, PO2 of 67.6, HC03 of 20.9 and an oxygen saturation of 94.9% on 2 L nasal cannula, indication of respiratory alkalosis On home oxygen 4 L with activity Echo with EF more than 70% grade 1 diastolic dysfunction no pulmonary hypertension. No other valvular abnormality Sputum culture with Staph aureus. Will add vancomycin. Staph aureus turner machine to be MSSA will change vancomycin to Ancef, no bacteremia present Add acetylcysteine nebs to help as mucolytic agent 05/15/2022 Complete remdesivir course to complete 10 days total course Decadron for 10 days total Wean oxygen as tolerated Continue Ancef for MSSA pneumonia, will discharge on oral doxycycline if okay with pulmonology (2) Sepsis: Code(s): A41.9 - Sepsis, unspecified organism Status: Acute Assessment and Plan: patient meets sepsis criteria with an elevated respiratory rate of 29, leukocytosis of 12.6, tachycardia of heart rate in the 110-120, elevated lactate at 3.3 infectious source is pneumonia blood cultures pending sputum culture pending urine culture ordered continue IV ceftriaxone and azithromycin WBCs 12.6, trend labs pulmonary consult thank you for your help Add vancomycin for Staph aureus in sputum which will be changed to Ancef 05/13/2022 (3) Morbid obesity with BMI of 45.0-49.9, adult: Code(s): E66.01 - Morbid (severe) obesity due to excess calories; Z68.42 - Body mass index [BMI] 45.0-49.9, adult Status: Acute Assessment and Plan: patient has a BMI of 48.8 patient is really not interested in lifestyle changes patient does take Ozempic which is probably used for weight loss last A1c was 5.5 (4) COVID-19: Code(s): U07.1 - COVID-19 Status: Acute Assessment and Plan: patient tested positive on 05/01/2022 neb treatments supplemental oxygen wean to maintain a saturation greater than 90% ABG shows respiratory alkalosis pulmonary consult consider remdesivir and dexamethasone antibiotics for bacterial pneumonia COVID vaccinated x2 with Pfizer Antitussives Remdesivir for 10 days course continue Decadron for 10, last day May 19, 2022 (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 Moody receives 3 monthly IgG infusions next IgG infusion is for Monday Consulted Dr. moody and discussed with him. Received IgG infusion 05/14/2022 (6) Hyperlipidemia: Code(s): E78.5 - Hyperlipidemia, unspecified Status: Acute (7) Hypertension: Code(s): I10 - Essential (primary) hypertension Status: Acute Assessment and Plan: controlled on home medication (8) Hypothyroid: Code(s): E03.9 - Hypothyroidism, unspecified Status: Acute Assessment and Plan: stable on home levothyroxine (9) Asthma with COPD: Code(s): J44.9 - Chronic obstructive pulmonary disease, unspecified Status: Acute Assessment and Plan: stable on home medications (10) Rheumatoid arthritis: Qualifiers: Rheumatoid arthritis location: unspecified site Rheumatoid fact
[2022-05-18 11:46] LABS: Glucose Point of Care 89 mg/dl (65-105)
[2022-05-18] MEDS: ALBUTEROL SULFATE (*SP) AEROSOL 1 PUFF 2 PUFF INHALATION ×2 (14:12→20:59)
[2022-05-18 17:39] LABS: Glucose Point of Care 96 mg/dl (65-105)
[2022-05-18] MEDS: REMDESIVIR 100 MG/NS 250 ML 100 MG/250 ML BAG 250 MG IVPB (22:15)
[2022-05-19] VITALS (7 sets, daily range): BP systolic 113–150; BP diastolic 65–89; PULSE 68–83; RESP 16–20; TEMP 36.3–36.8; O2SAT 9–96
[2022-05-19] MEDS: ceFAZolin 2 GM/D5W 50 ML 2 GM/50 ML BAG IVPB ×2 (05:50→14:04)
[2022-05-19] MEDS: CENTRAL LINE FLUSH 10 ML IV PUSH ×2 (05:50→14:04)
[2022-05-19] MEDS: LEVOTHYROXINE SODIUM 88 MCG TABLET PO (05:51)
--- NOTE | 2022-05-19 06:38 | PCRCNOTE ---
patient on apnealink. 0200 tx not given
[2022-05-19] MEDS: ACETYLCYSTEINE 20% INHAL SOLN 800 MG/4 ML VIAL 200 MG INHALATION ×2 (08:10→13:29)
[2022-05-19] MEDS: FLUTICASONE/SALMETEROL 115-21 MCG INHALER 1 PUFF 2 PUFF INHALATION (08:10)
[2022-05-19] MEDS: UMECLIDINIUM BROMIDE 62.5 MCG ELLIPTA 1 PUFF INHALATION (08:11)
[2022-05-19 08:44] LABS: Glucose Point of Care 261 mg/dl (65-105)
[2022-05-19 08:44] LABS: Glucose Point of Care 144 mg/dl (65-105)
[2022-05-19] MEDS: LOSARTAN POTASSIUM 50 MG TABLET 100 MG PO (09:03)
[2022-05-19] MEDS: guaiFENesin 12 HR 600 MG TABCR 1200 MG PO (09:03)
[2022-05-19] MEDS: SPIRONOLACTONE 50 MG TABLET PO (09:03)
[2022-05-19] MEDS: MONTELUKAST SODIUM 10 MG TABLET PO (09:03)
[2022-05-19] MEDS: metFORMIN HCL XR 500 MG TAB.SR.24H PO (09:04)
[2022-05-19] MEDS: HYDROXYCHLOROQUINE SULFATE 200 MG TABLET PO (09:04)
[2022-05-19] MEDS: PRAVASTATIN SODIUM 20 MG TABLET PO (09:04)
[2022-05-19] MEDS: CHOLECALCIFEROL 1,000 UNITS TABLET 2000 UNITS PO (09:04)
[2022-05-19] MEDS: ENOXAPARIN 40 MG/0.4 ML SYRINGE SUB-Q (09:05)
[2022-05-19] MEDS: FENOFIBRATE,MICRONIZED 48 MG TABLET PO (09:05)
[2022-05-19] MEDS: busPIRone HCL 5 MG TABLET PO (09:05)
[2022-05-19] MEDS: LEFLUNOMIDE 20 MG TABLET PO (09:06)
--- NOTE | 2022-05-19 09:39 | PM.PNPUL ---
Progress Note: A&P Assessment and Plan (1) Pneumonia: Code(s): J18.9 - Pneumonia, unspecified organism Status: Acute Assessment and Plan: patient is COVID positive on 05/01/2021. Treated with Paxil of it from and presented to the hospital on 05/09 with worsening dyspnea on exertion. Patient was started on dexamethasone and REMdesevere on 05/10/2022. Patient given ceftriaxone on 05/10 and azithromycin starting 05/10. Patient started on vancomycin on through 05/16/22. Patient's sputum grew out 0SSA and started on Ancef on 05/13 . patient is afebrile. White blood cell peaked at 16.0 on 05/11/2022. 05/16/22 patient states that she is maybe 15% improved since she was admitted to the hospital. Currently she is on 4 L nasal cannula saturations 94%. She continues on dexamethasone and Remdesivir started on 05/10 (today day 7). She is also on Ancef for O SSA in the sputum. white blood cell count is 5.6, she is afebrile. I will repeat a chest x-ray in the morning. I will discontinue azithromycin today as she has received 6 days. 05/17/22 Patient is slowly improving and states she has 18% back to her baseline. She has thick sputum that is improved with the Mucomyst nebulizers. She has no wheezing. Creatinine is 0.8. Currently on 4 L nasal cannula saturations 97%. She is afebrile. Chest x-ray today demonstrated improved opacities in the right lower lobe. on ceftriaxone from 05/10 to 05/13, Vanco 05/13 through 05/16, and ancef currently. Day 8 of coverage for MARIA EUGENIA. Continue for now. 05/18 Patient continues to slowly improve. States she has 24% back to her baseline. The sputum is improving and is less thick any more easily expectorated. She has no hemoptysis. She is afebrile. Continue Ancef. Currently the patient is on room air with saturations 93% at rest. She is on day 9 of REM de severe and dexamethasone. I will order a home O2 assessment in anticipation of discharge tomorrow After her 10th day of REMdesever and dexamethasone. Later in the day patient had a home O2 assessment. Rest room air saturation 94%. Ambulatory room air saturation 85%, ambulatory 1 L nasal cannula oxygen saturation 86%. Ambulation 2 L nasal cannula saturation 88%. Ambulation [address] nasal cannula saturation 91%. 05/19 Patient continues to slowly improve. She continues to cough up thick phlegm. She has no hemoptysis. She is afebrile. She tolerated her home CPAP last night. Today is day 10 of dexamethasone and REM de severe. Today is day 10 of MARIA EUGENIA pneumonia coverage. From a pulmonary perspective patient is ready for discharge today on these pulmonary medicines: Ancef 500 mg PO Q 6 for 5 days Symbicort 160/4.5 at 2 puffs BID Spireva respimat 2.5 mcg at 2 puufs Qam. Guaifenesin ER 600 mg p.o. b.i.d. Montelukast 10 mg p.o. q.day no oxygen at rest and 3 with ambulation CPAP 7 with room air when she sleeps and when naps. Follow-up in pulmonary clinic in 3 weeks. I have informed our surgery scheduler. Discussed with Dr. Preciado. (2) Asthma with COPD: Code(s): J44.9 - Chronic obstructive pulmonary disease, unspecified Status: Acute Assessment and Plan: 05/16 Patient has no wheezing on exam. Patient does state that she has difficulty with sputum and she is on acetylcysteine nebulized q.6 hours, guaifenesin 1200 mg b.i.d. Tessalon Perles 200 mg t.i.d. p.r.n., Advair, Incruse, and montelukast 10 mg a day. 05/17 Continue current regimen. 05/18 continue inhalers. 05/19 Discharge on her home regimen. 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 (4) Sleep apnea: Qualifiers: Sleep apnea type: obstructive Qualified Code(s): G47.33 - Obstructive sleep apnea (adult) (pediatric) Code(s): G47.30 - Sleep apnea, unspec
[2022-05-19 09:41] LABS: Alanine Aminotransferase 11 U/L (6-35); Estimated CRCL calculation 96 ml/min; Estimated Glomerular Filt Rate > 60
[2022-05-19 10:32] LABS: INR 1.1; Prothrombin Time 13.3 Seconds (11.1-14.7)
[2022-05-19 11:49] LABS: Glucose Point of Care 88 mg/dl (65-105)
--- NOTE | 2022-05-19 14:01 | PCCCNOTE ---
On 05/19/22, the student, Neha Moscoso, provided care and completed [employer] documentation on this patient. I have reviewed the student's documentation and agree with the findings.
[2022-05-19] MEDS: REMDESIVIR 100 MG/NS 250 ML 100 MG/250 ML BAG 250 MG IVPB (15:05)
[2022-05-19] MEDS: NEOMYCIN/POLYMYXIN/BACITRACIN OINTMENT PACKET 1 PACKET (16:20)
--- NOTE | 2022-05-19 17:25 | P.DS_ITS ---
DS: Admitting Diagnosis Discharge Date May 19, 2022 Admitting Diagnosis shortness of breath DS: Discharge Diagnosis Discharge Diagnosis (1) Pneumonia: Code(s): J18.9 - Pneumonia, unspecified organism Status: Acute Assessment and Plan: * CTA shows a patchy airspace opacity in the right upper lobe consistent with pneumonia * chest x-ray shows airspace opacities in the right mid and lower lung zones * WBCs elevated 12.6 * azithromycin and ceftriaxone continued * continue neb treatments * sputum and blood culture ordered * trend culture results * adjust therapy to culture findings * could be adjacent to COVID findings * supplemental oxygen wean to maintain saturation greater than 90% * trend SpO2 * ABG shows a pH of 7.478, pCO2 at 28.8, PO2 of 67.6, HC03 of 20.9 and an oxygen saturation of 94.9% on 2 L nasal cannula, indication of respiratory alkalosis On home oxygen 4 L with activity Echo with EF more than 70% grade 1 diastolic dysfunction no pulmonary hypertension. No other valvular abnormality Sputum culture with Staph aureus. Will add vancomycin. Staph aureus pipe turner to be MSSA will change vancomycin to Ancef, no bacteremia present Add acetylcysteine nebs to help as mucolytic agent 05/15/2022 Complete remdesivir course to complete 10 days total course Decadron for 10 days total Wean oxygen as tolerated Continue Ancef for MSSA pneumonia, will discharge on oral doxycycline if okay with pulmonology (2) Sepsis: Code(s): A41.9 - Sepsis, unspecified organism Status: Acute Assessment and Plan: * patient meets sepsis criteria with an elevated respiratory rate of 29, leukocytosis of 12.6, tachycardia of heart rate in the 110-120, elevated lactate at 3.3 * infectious source is pneumonia * blood cultures pending * sputum culture pending * urine culture ordered * continue IV ceftriaxone and azithromycin * WBCs 12.6, trend labs * pulmonary consult thank you for your help Add vancomycin for Staph aureus in sputum which will be changed to Ancef 05/13/2022 (3) Morbid obesity with BMI of 45.0-49.9, adult: Code(s): E66.01 - Morbid (severe) obesity due to excess calories; Z68.42 - Body mass index [BMI] 45.0-49.9, adult Status: Acute Assessment and Plan: * patient has a BMI of 48.8 * patient is really not interested in lifestyle changes * patient does take Ozempic which is probably used for weight loss * last A1c was 5.5 (4) COVID-19: Code(s): U07.1 - COVID-19 Status: Acute Assessment and Plan: * patient tested positive on 05/01/2022 * neb treatments * supplemental oxygen wean to maintain a saturation greater than 90% * ABG shows respiratory alkalosis * pulmonary consult * consider remdesivir and dexamethasone * antibiotics for bacterial pneumonia * COVID vaccinated x2 with Pfizer * Antitussives Remdesivir for 10 days course continue Decadron for 10, last day May 19, 2022 (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 Moody * receives 3 monthly IgG infusions * next IgG infusion is for Monday Consulted Dr. moody and discussed with him. Received IgG infusion 05/14/2022 (6) Hyperlipidemia: Code(s): E78.5 - Hyperlipidemia, unspecified Sta
--- NOTE | 2022-05-19 17:25 | PM.DS ---
DS: Admitting Diagnosis Discharge Date May 19, 2022 Admitting Diagnosis shortness of breath DS: Discharge Diagnosis Discharge Diagnosis (1) Pneumonia: Code(s): J18.9 - Pneumonia, unspecified organism Status: Acute Assessment and Plan: CTA shows a patchy airspace opacity in the right upper lobe consistent with pneumonia chest x-ray shows airspace opacities in the right mid and lower lung zones WBCs elevated 12.6 azithromycin and ceftriaxone continued continue neb treatments sputum and blood culture ordered trend culture results adjust therapy to culture findings could be adjacent to COVID findings supplemental oxygen wean to maintain saturation greater than 90% trend SpO2 ABG shows a pH of 7.478, pCO2 at 28.8, PO2 of 67.6, HC03 of 20.9 and an oxygen saturation of 94.9% on 2 L nasal cannula, indication of respiratory alkalosis On home oxygen 4 L with activity Echo with EF more than 70% grade 1 diastolic dysfunction no pulmonary hypertension. No other valvular abnormality Sputum culture with Staph aureus. Will add vancomycin. Staph aureus shank turner to be MSSA will change vancomycin to Ancef, no bacteremia present Add acetylcysteine nebs to help as mucolytic agent 05/15/2022 Complete remdesivir course to complete 10 days total course Decadron for 10 days total Wean oxygen as tolerated Continue Ancef for MSSA pneumonia, will discharge on oral doxycycline if okay with pulmonology (2) Sepsis: Code(s): A41.9 - Sepsis, unspecified organism Status: Acute Assessment and Plan: patient meets sepsis criteria with an elevated respiratory rate of 29, leukocytosis of 12.6, tachycardia of heart rate in the 110-120, elevated lactate at 3.3 infectious source is pneumonia blood cultures pending sputum culture pending urine culture ordered continue IV ceftriaxone and azithromycin WBCs 12.6, trend labs pulmonary consult thank you for your help Add vancomycin for Staph aureus in sputum which will be changed to Ancef 05/13/2022 (3) Morbid obesity with BMI of 45.0-49.9, adult: Code(s): E66.01 - Morbid (severe) obesity due to excess calories; Z68.42 - Body mass index [BMI] 45.0-49.9, adult Status: Acute Assessment and Plan: patient has a BMI of 48.8 patient is really not interested in lifestyle changes patient does take Ozempic which is probably used for weight loss last A1c was 5.5 (4) COVID-19: Code(s): U07.1 - COVID-19 Status: Acute Assessment and Plan: patient tested positive on 05/01/2022 neb treatments supplemental oxygen wean to maintain a saturation greater than 90% ABG shows respiratory alkalosis pulmonary consult consider remdesivir and dexamethasone antibiotics for bacterial pneumonia COVID vaccinated x2 with Pfizer Antitussives Remdesivir for 10 days course continue Decadron for 10, last day May 19, 2022 (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 Moody receives 3 monthly IgG infusions next IgG infusion is for Monday Consulted Dr. moody and discussed with him. Received IgG infusion 05/14/2022 (6) Hyperlipidemia: Code(s): E78.5 - Hyperlipidemia, unspecified Status: Acute (7) Hypertension: Code(s): I10 - Essential (primary) hypertension Status: Acute Assessment and Plan: controlled on home medication (8) Hypothyroid: Code(s): E03.9 - Hypothyroidism, unspecified Status: Acute Assessment and Plan: stable on home levothyroxine (9) Asthma with COPD: Code(s): J44.9 - Chronic obstructive pulmonary disease, unspecified Status: Acute Assessment and Plan: stable on home medications (10) Rheumato
== END 2022-05-19 17:00 | disposition home or self-care (01) | DRG 871 ==
LOC: ANHED 13:43 → ANH3MEDSUR 13:45
PROVIDERS: Emergency Medicine; Internal Medicine; Nurse Practitioner; Admitting Provider Hospitalist; Emergency Provider Nurse Practitioner Family; PCP Internal Medicine; Visit Provider Student in an Organized Health Care Education/Training Program
DX: A41.89 Other specified sepsis (principal); J12.82 Pneumonia due to coronavirus disease 2019; U07.1 COVID-19; J96.21 Acute and chronic respiratory failure with hypoxia; J15.211 Pneumonia due to Methicillin susceptible Staphylococcus aureus; Z68.42 Body mass index [BMI] 45.0-49.9, adult; N17.9 Acute kidney failure, unspecified; J44.0 Chronic obstructive pulmonary disease with (acute) lower respiratory infection; D80.3 Selective deficiency of immunoglobulin G [IgG] subclasses; A49.01 Methicillin susceptible Staphylococcus aureus infection, unspecified site; E66.01 Morbid (severe) obesity due to excess calories; E78.5 Hyperlipidemia, unspecified; E03.9 Hypothyroidism, unspecified; M06.9 Rheumatoid arthritis, unspecified; G47.33 Obstructive sleep apnea (adult) (pediatric); F41.9 Anxiety disorder, unspecified; R00.0 Tachycardia, unspecified; K21.9 Gastro-esophageal reflux disease without esophagitis; R73.9 Hyperglycemia, unspecified; T38.0X5A Adverse effect of glucocorticoids and synthetic analogues, initial encounter; E55.9 Vitamin D deficiency, unspecified; Z87.891 Personal history of nicotine dependence; Z99.81 Dependence on supplemental oxygen; Z90.49 Acquired absence of other specified parts of digestive tract; Z86.16 Personal history of COVID-19; Z90.710 Acquired absence of both cervix and uterus
CPT/HCPCS: 36415; 36569; 36600; 71045; 71275; 80053; 80061; 80202; 81003; 82565; 82728; 82805; 82948; 83036; 83605; 83735; 83880; 84460; 84484; 85025; 85055; 85380; 85610; 86140; 86738; 87040; 87070; 87147; 87181; 87186; 87205; 87449; 87899; 93005; 93306; 94618; 94640; 94762; 97161; 99285; A9270; C1751; J0248; J0456; J0690; J0696; J1100; J1459; J1650; J2997; J3370; J7030; Q9957; Q9967

== ENCOUNTER 2022-06-02 12:46 | Outpatient (CLI) | payer BC, OTHER, SELFPAY ==
--- NOTE | ~2022-06-02 | XR_ITS ---
XR chest 2V DATE: 06/02/2022 13:10 INDICATION: Pneumonia TECHNIQUE: 2 views COMPARISON: 05/10/2022 CTA chest 05/17/2022 portable AP chest FINDINGS: Persistent prominent elevation right leaf of diaphragm. There is mild infiltrate or atelect asis in the right lower lung, relatively stable since 05/17/2022. The left lung appears clear. Normal heart size. Aortic calcification and mild unfolding. No hilar or mediastinal enlargement. Included skeletal structures are unremarkable. Status post cholecystectomy. IMPRESSION: Persistent prominent elevated right diaphragm and right lower lung infiltrate or atelecta sis, relatively stable since 05/17/2022 Reviewed, dictated and finalized at location B. IMPRESSION: Persistent prominent elevated right diaphragm and right lower lung infiltrate or atelectasis, relatively stable since 05/17/2022
== END 2022-06-02 12:47 | disposition home or self-care (01) ==
PROVIDERS: PCP Internal Medicine; Visit Provider Internal Medicine Pulmonary Disease
DX: J18.9 Pneumonia, unspecified organism (principal); I70.0 Atherosclerosis of aorta
CPT/HCPCS: 71046

== ENCOUNTER 2022-07-06 08:02 | Outpatient (CLI) | payer OTHER, MEDICARE, BC, SELFPAY ==
[2022-07-06 08:05] VITALS: PULSE 81; O2SAT 95
[2022-07-06 08:10] VITALS: PULSE 110; O2SAT 86
[2022-07-06 08:15] VITALS: PULSE 112; O2SAT 87
[2022-07-06 08:20] VITALS: PULSE 113; O2SAT 88
[2022-07-06 08:25] VITALS: PULSE 115; O2SAT 91
[2022-07-06 08:40] VITALS: PULSE 85; O2SAT 94
--- NOTE | 2022-07-06 08:55 | HOMEO2EVAL ---
Evaluation was performed at [facility] Home Oxygen Evaluation [facility]: Home Oxygen (O2) Evaluation Start: 07/06/22 08:51 Freq: Status: Active Protocol: RPE Activity Type Activity Date Activity User E-sign Co-sign Detail Recorded Client Recorded Date Recorded By Document 07/06/22 08:05 DJO [email or web address] 07/06/22 08:55 DJO Document 07/06/22 08:10 DJO [email or web address] 07/06/22 08:55 DJO Document 07/06/22 08:15 DJO [email or web address] 07/06/22 08:55 DJO Document 07/06/22 08:20 [email or web address] [email or web address] 07/06/22 08:55 DJO Document 07/06/22 08:25 [email or web address] [email or web address] 07/06/22 08:55 DJO Document 07/06/22 08:40 [email or web address] [email or web address] 07/06/22 08:55 DJO 07/06/22 07/06/22 07/06/22 08:05 08:10 08:15 Home O2 Evaluation Test Phase Resting Exercise Exercise Oxygen Delivery Room Air Room Air Nasal Cannula Oxygen Flow Rate (L/min) 1 Pulse Oximetry (90-100 %) 95 86 L 87 L Pulse Rate (60-100 beats/min) 81 110 H 112 H Rate of Perceived Exertion (PE) Ambulation Distance (feet) Ambulation Distance (meters) Treatment Charges O2 Evaluation - Outpatient 07/06/22 07/06/22 07/06/22 08:20 08:25 08:40 Home O2 Evaluation Test Phase Exercise Exercise Resting Oxygen Delivery Nasal Cannula Nasal Cannula Room Air Oxygen Flow Rate (L/min) 2 3 Pulse Oximetry (90-100 %) 88 L 91 94 Pulse Rate (60-100 beats/min) 113 H 115 H 85 Rate of Perceived Exertion (PE) 15 Hard Ambulation Distance (feet) 500 Ambulation Distance (meters) 152.39 Treatment Charges
== END 2022-07-06 08:03 | disposition home or self-care (01) ==
PROVIDERS: PCP Internal Medicine; Visit Provider Internal Medicine Pulmonary Disease
DX: J96.01 Acute respiratory failure with hypoxia (principal); J12.82 Pneumonia due to coronavirus disease 2019; J44.0 Chronic obstructive pulmonary disease with (acute) lower respiratory infection
CPT/HCPCS: 94618

== ENCOUNTER 2022-07-15 07:04 | Outpatient (CLI) | payer OTHER, BC, SELFPAY ==
[2022-07-15 07:47] LABS: Basophils Absolute Auto 0.1 K/mm3 (0.0-0.1); Basophils Percent Auto 1.2 % (0.2-1.2); Eosinophils Absolute Auto 0.1 K/mm3 (0-0.3); Eosinophils Percent Auto 1.4 % (0-4.4); Hematocrit 40.8 % (37.0-47.0); Hemoglobin 12.8 g/dL (12.0-15.0); Immature Granulocyte Absolute 0.01 K/mm3 (0.00-0.031); Immature Granulocyte Percent A 0.2 % (0-0.5); Lymphocytes Absolute Auto 1.59 K/mm3 (0.9-3.2); Lymphocytes Percent Auto 36.7 % (18.3-44.2); Mean Corpuscular HGB Conc 31.4 g/dl (32-36); Mean Corpuscular Hemoglobin 29.4 pg (26-34); Mean Corpuscular Volume 93.8 fl (80-100); Mean Platelet Volume 10.4 fl (7.4-10.4); Monocytes Absolute Auto 0.5 K/mm3 (0.1-0.6); Monocytes Percent Auto 12.2 % (2.6-8.5); Neutrophils Absolute Auto 2.1 K/mm3 (1.3-6.7); Neutrophils Percent Auto 48.3 % (45.5-73.1); Platelet Count Result 213 k/mm3 (150-375); Red Blood Count 4.35 M/mm3 (4.2-5.4); Red Cell Distribution Width 15.7 % (11.5-14.5); White Blood Count 4.3 K/mm3 (4.5-10.0)
[2022-07-15 08:02] LABS: Alanine Aminotransferase 26 U/L (6-35); Albumin Level 3.9 g/dL (3.5-5.1); Alkaline Phosphatase 47 U/L (38-126); Anion Gap 9 mmol/L (8-16); Aspartate Amino Transferase 27 U/L (14-36); Bilirubin,Total 0.4 mg/dL (0.2-1.3); Blood Urea Nitrogen 23 mg/dL (7-17); Calcium 9.1 mg/dL (8.4-10.2); Carbon Dioxide 27 mmol/L (22-30); Chloride 102 mmol/L (98-107); Cholesterol 160 mg/dL (0-200); Estimated Glomerular Filt Rate 51; Glucose 96 mg/dL (65-110); HDL Direct 73 mg/dL; Potassium 3.7 mmol/L (3.4-5.0); Sodium 138 mmol/L (137-145); Triglycerides 71 mg/dL (<150)
[2022-07-15 08:14] LABS: LDL Cholesterol Direct 64 mg/dL
[2022-07-15 09:27] LABS: Creatinine Urine 61.8 mg/dL
[2022-07-15 10:46] LABS: Hemoglobin A1C 5.2 % (<5.7)
[2022-07-15 12:19] LABS: MALB Creatinine Ratio < 9.7 mg/g (0-30); Microalbumin Urine Random < 6.0 mg/L (0-16.7)
[2022-07-19 09:10] LABS: Triiodothyronine T3 Free 2.4
== END 2022-07-15 07:05 | disposition home or self-care (01) ==
PROVIDERS: Referring Provider Internal Medicine Endocrinology, Diabetes & Metabolism; Visit Provider Internal Medicine
DX: E11.9 Type 2 diabetes mellitus without complications (principal); E03.9 Hypothyroidism, unspecified; E55.9 Vitamin D deficiency, unspecified; E78.5 Hyperlipidemia, unspecified
CPT/HCPCS: 36415; 80053; 80061; 82043; 82248; 82306; 83036; 84439; 84443; 84481; 85025

== ENCOUNTER 2022-07-15 09:30 | Outpatient (RCR) | payer BC, OTHER, MEDICARE, SELFPAY | END 2022-07-15 16:30 | disposition home or self-care (01) | LOC: ANHCPREHAB 09:30 | PROVIDERS: PCP Internal Medicine; Visit Provider Internal Medicine Pulmonary Disease | DX: J44.9 Chronic obstructive pulmonary disease, unspecified (principal); J96.01 Acute respiratory failure with hypoxia; J12.82 Pneumonia due to coronavirus disease 2019 | CPT/HCPCS: 94625; G0239 ==

== ENCOUNTER 2022-07-22 11:25 | Outpatient (CLI) | payer OTHER, MEDICARE, SELFPAY ==
--- NOTE | ~2022-07-22 | XR_ITS ---
XR chest 2V 07/22/2022 11:46 Indication: Cough and shortness of breath. Pneumonia. Procedure: 2 view chest Comparison: Comparison to multiple prior studies sequentially, with oldest reviewed study dated 05/11. Findings: Elevated right diaphragm. There is right basilar atelectasis/scarring. Heart size normal. L eft lung clear. Stable nodule left lower lung, likely calcified. No pneumothorax. Impression: 1: Right basilar atelectasis with chronic elevation of the right diaphragm. Reviewed, dictated and finalized at location A. Impression: 1: Right basilar atelectasis with chronic elevation of the right diaphragm.
== END 2022-07-22 11:26 | disposition home or self-care (01) ==
PROVIDERS: PCP Internal Medicine Pulmonary Disease; Visit Provider Internal Medicine Pulmonary Disease
DX: J44.9 Chronic obstructive pulmonary disease, unspecified (principal); D80.9 Immunodeficiency with predominantly antibody defects, unspecified; R91.8 Other nonspecific abnormal finding of lung field
CPT/HCPCS: 71046

== ENCOUNTER 2022-08-04 08:13 | Outpatient (CLI) | payer OTHER, MEDICARE, SELFPAY ==
--- NOTE | ~2022-08-04 | MM_ITS ---
EXAMINATION: MM screening [facility] BI w mary HISTORY: Screening mammogram TECHNIQUE: Craniocaudal and mediolateral oblique 3-D tomosynthesis images were obtained and synthetic 2-D images were generated. CAD analysis was submitted and interpreted. COMPARISON: 08/12/2020, 10/27/2018, 12/07/2013 BREAST PARENCHYMAL COMPOSITION: The breasts are almost entirely fatty. FINDINGS: No suspicious mass, calcification, or architectural distortion are identified in either louann ast to suggest malignancy. There has been no suspicious interval change. IMPRESSION: 1. No mammographic evidence of malignancy. 2. Recommend routine screening mammography in one year. BI-RADS Category 1: Negative Reviewed, dictated and finalized at location B.
--- NOTE | ~2022-08-04 | DEXA_ITS ---
Bone Density Report Name: JOSE MANUEL DONOVAN Age: 57 Sex: Female Ethnicity: White Date of : 1965 Indication: postmenopausal; screening for osteoporosis; parental hip fracture; height loss; asthma or emphysema; hysterectomy; rheumatoid arthritis; Referring Provider: OTTOCARMELINA Study: Bone densitometry was performed. Exam Date: August 04, 2022 Accession number: [id number] Bone Density: Region BMD T-score Z-score Classification AP Spine(L1-L4) 1.252 1.9 3.2 Normal Femoral Neck (Left) 0.928 0.7 2.0 Normal Total Hip (Left) 1.073 1.1 2.0 Normal Femoral Neck (Right) 0.867 0.2 1.4 Normal Total Hip (Right) 1.059 1.0 1.9 Normal Total Hip Mean 1.066 1.1 2.0 Normal World Health Organization criteria for BMD impression classify patients as: Normal (T-score at or above -1.0), Osteopenia (T-score between -1.0 and -2.5), or Osteoporosis (T-score at or below -2.5). 10-year Fracture Risk: FRAX not reported because: All T-scores for Spine Total, Hip Total, Femoral Neck at or above -1.0 Previous Exams: Region Exam Age BMD T-score BMD Change BMD Change Date g/cm2 vs Baseline vs Previous AP Spine (L1-L4) 08/04/2022 57 1.252 1.9 0.050 (4.2%)# 0.050 (4.2%)# 10/27/2018 53 1.202 1.4 Total Hip(Left) 08/04/2022 57 1.073 1.1 -0.097 (-8.3%) -0.097 (-8.3%) 10/27/2018 53 1.169 1.9 Total Hip(Right) 08/04/2022 57 1.059 1.0 -0.055 (-4.9%) -0.055 (-4.9%) 10/27/2018 53 1.114 1.4 *Denotes significance at 95% confidence level, LSC for AP Spine = 0.022 g/cm2, LSC for Total Hip = 0.027 g/cm2 # Denotes dissimilar scan types or analysis methods Clinical Information Provided by Patient: Parent has had a hip fracture Has rheumatoid arthritis Has used the following medications: Vitamin D Has the following medical conditions: Asthma or Emphysema, Hysterectomy Patient maximum height was 64 Menopause Age: 33 No regular weight bearing exercise Drinks caffeinated beverages Onset of menses at age 11 Number of children 1 Impression: The patient has normal bone mass. The patient has risk factors, including: parental hip fracture. No significant bone loss was observed. Discussion: BONE DENSITY IS ABOVE THE MINIMUM DESIRABLE LEVEL AT ALL SKELETAL SITES TESTED. This patient?s bone mineral density is above the minimum desirable level (T-score -1.0 or better) at all sites measured. The patient should follow a healthful life
== END 2022-08-04 08:14 | disposition home or self-care (01) ==
PROVIDERS: PCP Internal Medicine; Visit Provider Internal Medicine
DX: Z12.31 Encounter for screening mammogram for malignant neoplasm of breast (principal); Z78.0 Asymptomatic menopausal state
CPT/HCPCS: 77063; 77067; 77080

== ENCOUNTER 2022-09-17 17:49 | Emergency (ER) | payer OTHER, MEDICARE, SELFPAY ==
[2022-09-17] VITALS (25 sets, daily range): BP systolic 104–145; BP diastolic 56–87; PULSE 80–97; RESP 12–27; TEMP 36.6; O2SAT 93–100
--- NOTE | ~2022-09-17 | XR_ITS ---
EXAMINATION: XR chest 2V Exam Date/Time: 09/17/2022 18:10 STRIP DEBURRER HISTORY: shortness of breath, HX PNEUMONIA, COUGH Comparison: 07/22/2022. RESULT: Lines, tubes, and devices: Cholecystectomy clips. Lungs and pleura: No focal consolidation or pneumothorax. Persistent right hemidiaphragm elevation w ith linear scar/atelectasis in the right lung base. Cardiomediastinal silhouette: Stable. Other: No acute osseous or upper abdominal finding. IMPRESSION: No acute cardiopulmonary process. Reviewed, dictated and finalized at location K. P DEBURRER
--- NOTE | 2022-09-17 18:10 | ECG_ITS ---
Measurements Intervals [place] Rate: 86 P: 29 PA: 174 QRS: 22 QRSD: 91 T: 8 QT: 371 QTc: 445 Interpretive Statements SINUS RHYTHM BORDERLINE R WAVE PROGRESSION, ANTERIOR LEADS CONSIDER INFERIOR INFARCT, AGE INDETERMINATE BASELINE ARTIFACT- I, II, III, AVR, AVL, AVF ABNORMAL ECG COMPARED TO ECG 05/13/2022 12:23:26 NO SIGNIFICANT CHANGES Electronically Signed On 09-18-2022 7:00:04 AGENT TELEGRAPHER by Jake Cassidy D.O.
[2022-09-17 18:34] LABS: Basophils Absolute Auto 0.1 K/mm3 (0.0-0.1); Basophils Percent Auto 1.2 % (0.2-1.2); Eosinophils Absolute Auto 0.1 K/mm3 (0-0.3); Eosinophils Percent Auto 1.5 % (0-4.4); Hematocrit 41.5 % (37.0-47.0); Hemoglobin 13.3 g/dL (12.0-15.0); Immature Granulocyte Absolute 0.01 K/mm3 (0.00-0.031); Immature Granulocyte Percent A 0.2 % (0-0.5); Lymphocytes Absolute Auto 1.62 K/mm3 (0.9-3.2); Lymphocytes Percent Auto 27.7 % (18.3-44.2); Mean Corpuscular Hemoglobin 29.2 pg (26-34); Monocytes Absolute Auto 0.6 K/mm3 (0.1-0.6); Monocytes Percent Auto 10.8 % (2.6-8.5); Neutrophils Absolute Auto 3.4 K/mm3 (1.3-6.7); Neutrophils Percent Auto 58.6 % (45.5-73.1); Platelet Count Result 210 k/mm3 (150-375); Red Blood Count 4.56 M/mm3 (4.2-5.4); Red Cell Distribution Width 13.5 % (11.5-14.5); White Blood Count 5.8 K/mm3 (4.5-10.0)
[2022-09-17 18:49] LABS: Alanine Aminotransferase 23 U/L (6-35); Albumin Level 4.4 g/dL (3.5-5.1); Alkaline Phosphatase 66 U/L (38-126); Anion Gap 9 mmol/L (8-16); Aspartate Amino Transferase 30 U/L (14-36); Bilirubin,Total 0.7 mg/dL (0.2-1.3); Blood Urea Nitrogen 15 mg/dL (7-17); Calcium 9.6 mg/dL (8.4-10.2); Carbon Dioxide 24 mmol/L (22-30); Chloride 104 mmol/L (98-107); Estimated CRCL calculation 55 ml/min; Estimated Glomerular Filt Rate 46; Glucose 89 mg/dL (65-110); Potassium 3.7 mmol/L (3.4-5.0); Sodium 137 mmol/L (137-145)
--- NOTE | 2022-09-17 19:01 | ED.GENADULT ---
HPI - General Adult General Chief complaint: Shortness of Breath/Dyspnea Stated complaint: shortness of breath Time Seen by Provider: 09/17/22 18:22 History of Present Illness HPI narrative: 57-year-old female present to the emergency department for evaluation of possible pneumonia. Patient states she had follow-up with her primary care physician on Monday. Patient states yesterday her cough became productive and she was coughing up green sputum. Patient states she is also had some increased wheeze. Patient reports that due to her immune deficiency that she gets pneumonia very easily. Related Data Home Medications Medication Instructions Recorded Confirmed losartan 50 mg tablet 100 mg PO DAILY 10/21/19 09/14/22 montelukast 10 mg tablet 10 mg PO DAILY 10/21/19 09/14/22 pravastatin 20 mg tablet 20 mg PO DAILY 01/26/20 09/14/22 fenofibrate nanocrystallized 48 mg 48 mg PO DAILY 07/28/20 09/14/22 tablet loratadine 10 mg tablet 10 mg PO DAILY PRN Congestion 07/28/20 09/14/22 celecoxib 200 mg capsule 200 mg PO BID PRN Anxiety 01/22/21 09/14/22 folic acid 1 mg tablet 3 - 4 mg PO DAILY 01/22/21 09/14/22 leflunomide 20 mg tablet 20 mg PO DAILY 01/22/21 09/14/22 levothyroxine 88 mcg tablet 88 mcg PO DAILY 01/22/21 09/14/22 (Synthroid) spironolactone 50 mg tablet 50 mg PO DAILY 01/22/21 09/14/22 ondansetron HCl 4 mg tablet 4 mg PO BID PRN Nausea 04/21/21 09/14/22 metformin 500 mg tablet,extended 500 mg PO DAILY 10/19/21 09/14/22 release 24 hr tramadol 50 mg tablet 50 mg PO TID PRN Pain 10/19/21 09/14/22 diltiazem HCl 120 mg 120 mg PO DAILY 12/01/21 09/14/22 capsule,extended release 24 hr fluticasone propionate 50 2 spray intranasal DAILY 12/15/21 09/14/22 mcg/actuation nasal spray,suspension cholecalciferol (vitamin D3) 50 50 mcg PO DAILY 01/11/22 09/14/22 mcg (2,000 unit) capsule cyclosporine 0.05 % eye drops 1 drp EACH EYE Q12H PRN Dry Eyes 01/11/22 09/14/22 guaifenesin 600 mg tablet, 600 mg PO BID 01/11/22 09/14/22 extended release 12 hr (Mucinex) hydroxychloroquine 200 mg tablet 200 mg PO DAILY 01/11/22 09/14/22 (Plaquenil) ipratropium bromide 0.02 % 0.5 mg inhalation Q4-5H 01/11/22 09/14/22 solution for inhalation loteprednol etabonate 0.2 % eye 1 drp EACH EYE QID 01/11/22 09/14/22 drops,suspension (Alrex) meclizine 25 mg tablet 25 mg PO BID PRN Dizziness 01/11/22 09/14/22 semaglutide 0.25 mg or 0.5 mg (2 0.25 mg subcut WEEKLY 01/11/22 09/14/22 mg/1.5 mL) subcutaneous pen injector (Ozempic) valacyclovir 1 gram tablet 1,000 mg PO PRN PRN fever blister 01/11/22 09/14/22 (Valtrex) Allergies Allergy/AdvReac Type Severity Reaction Status Date / Time amoxicillin Allergy Severe Hives Verified 07/20/22 10:31 fentanyl Allergy Severe Difficulty Verified 07/20/22 10:31 Breathing peach Allergy Severe Itching Verified 07/20/22 10:31 Sulfa (Sulfonamide Allergy Severe Hives Verified 07/20/22 10:31 Antibiotics) amitriptyline AdvReac Mild Unknown Verified 07/20/22 10:31 Review of Systems Review of Systems: CONSTITUTIONAL: Denies fever, chills, or sweats. EYES: Denies visual changes, redness, or discharge. ENT: Denies rhinorrhea, congestion, sore throat, or otalgia. CARDIOVASCULAR: Denies chest pain, palpitations, or edema. RESPIRATORY: See HPI GASTROINTESTINAL: Denies abdominal pain, nausea, vomiting, or diarrhea. GENITOURINARY: Denies dysuria or hematuria. SKIN: Denies rash or itching. MUSCULOSKELETAL: Denies back pain, joint pain, or myalgia. NEUROLOGIC: Denies headache, numbness, or weakness. [facility] Past Medical History Medical History (Updated 09/17/22 @ 20:45 by Pranav Blake MD) Acute respiratory failure with hypoxia LISA (acute kidney injury) (~12/2020) Aspergillus Asthma with COPD PFTs 05/10/2020 BPPV (benign paroxysmal positional vertigo) Dry eyes Edema GERD (gastroesophageal reflux disease) Hemoptysis Herpes Hypothyroid IgG deficiency Morbid obesity Necrotizing p
[2022-09-17] MEDS: ALBUTEROL SULFATE NEB 2.5 MG/3 ML INH 5 MG INHALATION (19:17)
[2022-09-17 19:40] LABS: Influenza A QL RT-PCR Negative (Negative); Influenza B QL RT-PCR Negative (Negative); SARS-CoV-2 RNA PCR Negative
== END 2022-09-17 20:55 | disposition home or self-care (01) ==
PROVIDERS: Emergency Medicine; Emergency Provider Emergency Medicine
DX: R05.9 Cough, unspecified (principal); Z20.822 Contact with and (suspected) exposure to COVID-19; J44.9 Chronic obstructive pulmonary disease, unspecified; K21.9 Gastro-esophageal reflux disease without esophagitis; E55.9 Vitamin D deficiency, unspecified; E66.01 Morbid (severe) obesity due to excess calories; E03.9 Hypothyroidism, unspecified; R73.03 Prediabetes; M19.90 Unspecified osteoarthritis, unspecified site; M06.9 Rheumatoid arthritis, unspecified; G47.33 Obstructive sleep apnea (adult) (pediatric); Z68.42 Body mass index [BMI] 45.0-49.9, adult; Z87.01 Personal history of pneumonia (recurrent); Z86.16 Personal history of COVID-19; Z87.891 Personal history of nicotine dependence
CPT/HCPCS: 36415; 71046; 80053; 85025; 87636; 93005; 94640; 99283

== ENCOUNTER 2022-10-12 11:57 | Outpatient (CLI) | payer OTHER, MEDICARE, SELFPAY ==
[2022-10-12 12:56] LABS: Alanine Aminotransferase 31 U/L (6-35); Alkaline Phosphatase 60 U/L (38-126); Anion Gap 3 mmol/L (8-16); Aspartate Amino Transferase 30 U/L (14-36); Bilirubin,Total 0.7 mg/dL (0.2-1.3); Blood Urea Nitrogen 10 mg/dL (7-17); Calcium 9.6 mg/dL (8.4-10.2); Carbon Dioxide 32 mmol/L (22-30); Chloride 105 mmol/L (98-107); Cholesterol 177 mg/dL (0-200); Estimated Glomerular Filt Rate 57; Glucose 92 mg/dL (65-110); HDL Direct 60 mg/dL; Potassium 3.7 mmol/L (3.4-5.0); Sodium 140 mmol/L (137-145); Triglycerides 120 mg/dL (<150)
[2022-10-12 12:57] LABS: Hemoglobin A1C 5.3 % (<5.7)
[2022-10-12 13:08] LABS: LDL Cholesterol Direct 77 mg/dL
[2022-10-12 13:12] LABS: Creatinine Urine 41.1 mg/dL
[2022-10-12 13:21] LABS: MALB Creatinine Ratio < 14.6 mg/g (0-30); Microalbumin Urine Random < 6.0 mg/L (0-16.7)
[2022-10-12 13:26] LABS: Thyroid Stimulating Hormone 0.376 uIU/mL (0.465-4.680)
[2022-10-12 13:54] LABS: Free T4 Free Thyroxine 1.75 ng/mL (0.78-2.19); Vitamin D 25 Hydroxy 75.5 ng/mL
[2022-10-17 15:45] LABS: Triiodothyronine T3 Free 3.1 pg/mL (2.3-4.2)
== END 2022-10-12 11:58 | disposition home or self-care (01) ==
PROVIDERS: PCP Internal Medicine; Visit Provider Nurse Practitioner
DX: E55.9 Vitamin D deficiency, unspecified (principal); E78.5 Hyperlipidemia, unspecified; E03.9 Hypothyroidism, unspecified; E11.9 Type 2 diabetes mellitus without complications
CPT/HCPCS: 36415; 80053; 80061; 82043; 82306; 83036; 84439; 84443; 84481

== ENCOUNTER 2022-10-28 18:57 | Emergency (ER) | payer OTHER, MEDICARE, SELFPAY ==
[2022-10-28 19:21] VITALS: BP 144/89; PULSE 86; RESP 22; TEMP 36.6; O2SAT 93
[2022-10-28] MEDS: ONDANSETRON HCL ODT 4 MG TABLET PO (20:17)
[2022-10-28] MEDS: methylPREDNISolone SOD SUCC 125 MG VIAL IM (20:17)
[2022-10-28] MEDS: HYDROmorphone HCL INJ (*CRX) 1 MG/ML SYR IM (20:17)
--- NOTE | 2022-10-28 20:28 | ED.BACK ---
HPI - Back Pain/Injury General Chief Complaint: Back Pain/Injury Stated Complaint: left lower back/hip/knee pain Time Seen by Provider: 10/28/22 19:26 Source: patient and RN notes reviewed Mode of arrival: ambulatory Limitations: no limitations History of Present Illness HPI Narrative: This is a 57 year old female with multiple medical problems including RA who presents for evaluation of lower back pain. Patient has history of chronic back and hip pain. She reports she had steroid injection by ortho 1 week ago but she is still having pain. She has taking tramadol and norco without relief of her pain. She reports constant pain to low mid back that radiates to left buttock and down to left knee. Her pain is worse with walking. She denies numbness tingling, dysuria or urinary retention. She denies any injury. She denies fever or chills. Related Data Home Medications Medication Instructions Recorded Confirmed losartan 50 mg tablet 100 mg PO DAILY 10/21/19 10/05/22 montelukast 10 mg tablet 10 mg PO DAILY 10/21/19 10/05/22 pravastatin 20 mg tablet 20 mg PO DAILY 01/26/20 10/05/22 fenofibrate nanocrystallized 48 mg 48 mg PO DAILY 07/28/20 10/05/22 tablet loratadine 10 mg tablet 10 mg PO DAILY PRN Congestion 07/28/20 10/05/22 celecoxib 200 mg capsule 200 mg PO BID PRN Anxiety 01/22/21 10/05/22 folic acid 1 mg tablet 3 - 4 mg PO DAILY 01/22/21 10/05/22 leflunomide 20 mg tablet 20 mg PO DAILY 01/22/21 10/05/22 spironolactone 50 mg tablet 50 mg PO DAILY 01/22/21 10/05/22 ondansetron HCl 4 mg tablet 4 mg PO BID PRN Nausea 04/21/21 10/05/22 metformin 500 mg tablet,extended 500 mg PO DAILY 10/19/21 10/05/22 release 24 hr tramadol 50 mg tablet 50 mg PO TID PRN Pain 10/19/21 10/05/22 diltiazem HCl 120 mg 120 mg PO DAILY 12/01/21 10/05/22 capsule,extended release 24 hr fluticasone propionate 50 2 spray intranasal DAILY 12/15/21 10/05/22 mcg/actuation nasal spray,suspension cholecalciferol (vitamin D3) 50 50 mcg PO DAILY 01/11/22 10/05/22 mcg (2,000 unit) capsule cyclosporine 0.05 % eye drops 1 drp EACH EYE Q12H PRN Dry Eyes 01/11/22 10/05/22 guaifenesin 600 mg tablet, 600 mg PO BID 01/11/22 10/05/22 extended release 12 hr (Mucinex) hydroxychloroquine 200 mg tablet 200 mg PO DAILY 01/11/22 10/05/22 (Plaquenil) ipratropium bromide 0.02 % 0.5 mg inhalation Q4-5H 01/11/22 10/05/22 solution for inhalation meclizine 25 mg tablet 25 mg PO BID PRN Dizziness 01/11/22 10/05/22 valacyclovir 1 gram tablet 1,000 mg PO PRN PRN fever blister 01/11/22 10/05/22 (Valtrex) levothyroxine 88 mcg tablet 100 mcg PO DAILY 10/05/22 10/05/22 (Synthroid) oxybutynin chloride 5 mg 10 mg PO QAM 10/05/22 10/05/22 tablet,extended release 24 hr (Ditropan XL) tirzepatide 5 mg/0.5 mL 5 mg subcut WEEKLY 10/05/22 10/05/22 subcutaneous pen injector (Obinna) Allergies Allergy/AdvReac Type Severity Reaction Status Date / Time amoxicillin Allergy Severe Hives Verified 10/05/22 13:26 fentanyl Allergy Severe Difficulty Verified 10/05/22 13:26 Breathing peach Allergy Severe Itching Verified 10/05/22 13:26 Sulfa (Sulfonamide Allergy Severe Hives Verified 10/05/22 13:26 Antibiotics) amitriptyline AdvReac Mild Unknown Verified 10/05/22 13:26 Review of Systems Constitutional: Constitutional: Denies weakness Cardiovascular: Cardiovascular: Denies syncope, Denies rapid heart rate, Denies irregular heart rhythm, Denies leg edema and Denies dyspnea Respiratory: Respiratory: Denies chest congestion, Denies hemoptysis, Denies excessive phlegm production and Denies dyspnea Gastrointestinal: Gastrointestinal: Denies abdominal pain, Denies hematochezia, Denies diarrhea and Denies vomiting Genitourinary: Genitourinary: Denies hematuria and Denies dysuria Musculoskeletal: Musculoskeletal: Reports back pain, Reports arthralgias, Denies joint swelling, Denies loss of height and Denies muscle weakness Neurologic: Denies syncope, Den
== END 2022-10-28 20:44 | disposition home or self-care (01) ==
PROVIDERS: Emergency Provider General Practice; PCP Internal Medicine
DX: M54.42 Lumbago with sciatica, left side (principal); M06.9 Rheumatoid arthritis, unspecified; J44.9 Chronic obstructive pulmonary disease, unspecified; E03.9 Hypothyroidism, unspecified; K21.9 Gastro-esophageal reflux disease without esophagitis; G47.33 Obstructive sleep apnea (adult) (pediatric); M19.90 Unspecified osteoarthritis, unspecified site; E55.9 Vitamin D deficiency, unspecified; E66.01 Morbid (severe) obesity due to excess calories; Z68.41 Body mass index [BMI] 40.0-44.9, adult; R32 Unspecified urinary incontinence; Z87.01 Personal history of pneumonia (recurrent); Z87.891 Personal history of nicotine dependence; Z90.710 Acquired absence of both cervix and uterus; Z90.722 Acquired absence of ovaries, bilateral; Z90.79 Acquired absence of other genital organ(s); Z79.84 Long term (current) use of oral hypoglycemic drugs
CPT/HCPCS: 96372; 99284; A9270; J1170; J2930

== ENCOUNTER 2022-11-23 14:05 | Outpatient (CLI) | payer OTHER, MEDICARE, SELFPAY ==
--- NOTE | ~2022-11-23 | XR_ITS ---
EXAMINATION: XR chest 2V Exam Date/Time: 11/23/2022 14:35 FREIGHT FLAGMAN HISTORY: J18.9 - Pneumonia, unspecified organism Comparison: 09/17/2022, 07/22/2022; CTPA 05/10/2022. RESULT: Lines, tubes, and devices: Cholecystectomy clips. Lungs and pleura: Unchanged right hemidiaphragm elevation. Right basilar scar/atelectasis. Calcified left midlung granuloma. Cardiomediastinal silhouette: Stable. Other: No acute osseous or upper abdominal finding. IMPRESSION: No acute cardiopulmonary process. Reviewed, dictated and finalized at location K. GHT FLAGMAN
[2022-11-23 15:26] LABS: Influenza A QL RT-PCR Negative (Negative); Influenza B QL RT-PCR Negative (Negative); RSV RNA, RT-PCR Negative (Negative); SARS-CoV-2 RNA PCR Negative
== END 2022-11-23 14:06 | disposition home or self-care (01) ==
PROVIDERS: PCP Internal Medicine; Visit Provider Internal Medicine Pulmonary Disease
DX: J18.9 Pneumonia, unspecified organism (principal); Z20.822 Contact with and (suspected) exposure to COVID-19
CPT/HCPCS: 71046; 87637

== ENCOUNTER 2023-01-23 13:28 | Outpatient (CLI) | payer OTHER, MEDICARE, SELFPAY ==
[2023-01-23 14:09] LABS: Basophils Absolute Auto 0.1 K/mm3 (0.0-0.1); Basophils Percent Auto 1.1 % (0.2-1.2); Eosinophils Absolute Auto 0.1 K/mm3 (0-0.3); Eosinophils Percent Auto 1.1 % (0-4.4); Hematocrit 42.9 % (37.0-47.0); Hemoglobin 13.6 g/dL (12.0-15.0); Immature Granulocyte Absolute 0.01 K/mm3 (0.00-0.031); Immature Granulocyte Percent A 0.2 % (0-0.5); Lymphocytes Absolute Auto 1.66 K/mm3 (0.9-3.2); Lymphocytes Percent Auto 25.7 % (18.3-44.2); Mean Corpuscular HGB Conc 31.7 g/dl (32-36); Mean Corpuscular Volume 91.5 fl (80-100); Mean Platelet Volume 12.1 fl (7.4-10.4); Monocytes Absolute Auto 0.7 K/mm3 (0.1-0.6); Monocytes Percent Auto 10.2 % (2.6-8.5); Neutrophils Percent Auto 61.7 % (45.5-73.1); Platelet Count Result 195 k/mm3 (150-375); Red Blood Count 4.69 M/mm3 (4.2-5.4); Red Cell Distribution Width 13.9 % (11.5-14.5); White Blood Count 6.5 K/mm3 (4.5-10.0)
[2023-01-23 16:26] LABS: Immunoglobulin A 60 mg/dL (70-400); Immunoglobulin G 639 mg/dL (700-1600); Immunoglobulin M 57 mg/dL (40-230)
[2023-01-23 16:29] LABS: LDL Cholesterol Direct 84 mg/dL
[2023-01-23 16:45] LABS: Vitamin D 25 Hydroxy 64.6 ng/mL
[2023-01-23 16:55] LABS: Alanine Aminotransferase 21 U/L (6-35); Albumin Level 4.3 g/dL (3.5-5.1); Alkaline Phosphatase 77 U/L (38-126); Anion Gap 5 mmol/L (8-16); Aspartate Amino Transferase 22 U/L (14-36); Bilirubin,Total 0.6 mg/dL (0.2-1.3); Blood Urea Nitrogen 16 mg/dL (7-17); Calcium 9.9 mg/dL (8.4-10.2); Carbon Dioxide 31 mmol/L (22-30); Chloride 102 mmol/L (98-107); Cholesterol 195 mg/dL (0-200); Estimated Glomerular Filt Rate > 60; Glucose 96 mg/dL (65-110); HDL Direct 73 mg/dL; Potassium 3.9 mmol/L (3.4-5.0); Sodium 138 mmol/L (137-145)
[2023-01-23 16:57] LABS: Thyroid Stimulating Hormone 0.485 uIU/mL (0.465-4.680)
[2023-01-23 17:00] LABS: Triglycerides 136 mg/dL (<150)
[2023-01-23 17:09] LABS: Creatinine Urine 68.2 mg/dL
[2023-01-23 17:15] LABS: Hemoglobin A1C 4.7 % (<5.7)
[2023-01-23 17:20] LABS: MALB Creatinine Ratio < 8.8 mg/g (0-30); Microalbumin Urine Random < 6.0 mg/L (0-16.7)
== END 2023-01-23 13:29 | disposition home or self-care (01) ==
LOC: ANHLAB 13:31
PROVIDERS: PCP Internal Medicine; Visit Provider Internal Medicine Hematology & Oncology
DX: E78.5 Hyperlipidemia, unspecified (principal); E11.9 Type 2 diabetes mellitus without complications; E55.9 Vitamin D deficiency, unspecified
CPT/HCPCS: 36415; 80053; 80061; 82043; 82306; 82784; 83036; 84439; 84443; 85025

== ENCOUNTER 2023-04-20 08:45 | Outpatient (CLI) | payer OTHER, MEDICARE, SELFPAY ==
--- NOTE | ~2023-04-20 | CT_ITS ---
EXAMINATION: CT sinus wo con DATE: 04/20/2023 09:06 INDICATION: Chronic sinusitis TECHNIQUE: Computed tomography (CT) of the paranasal sinuses was performed without intravenous contra st. The dose-length product was 315.62 mGy-cm. Automated exposure control and iterative reconstructio n technique were employed. COMPARISON: CT dated 04/04/2020 FINDINGS: There is mild mucosal thickening of the right maxillary and ethmoid sinuses. Leftward nasal septal deviation. Ostiomeatal units are patent. No significant mucoperiosteal reaction. There is a r ight mastoid effusion. IMPRESSION: 1. Mild sinus disease. 2: Small right mastoid effusion. Reviewed, dictated and finalized at location L.
== END 2023-04-20 08:46 | disposition home or self-care (01) ==
PROVIDERS: PCP Internal Medicine; Visit Provider Otolaryngology
DX: J32.9 Chronic sinusitis, unspecified (principal)
CPT/HCPCS: 70486

== ENCOUNTER 2023-05-12 11:49 | Outpatient (CLI) | payer OTHER, MEDICARE, SELFPAY ==
[2023-05-12 12:21] LABS: Basophils Absolute Auto 0.1 K/mm3 (0.0-0.1); Basophils Percent Auto 1.3 % (0.2-1.2); Eosinophils Absolute Auto 0.3 K/mm3 (0-0.3); Eosinophils Percent Auto 3.9 % (0-4.4); Hematocrit 42.6 % (37.0-47.0); Hemoglobin 13.5 g/dL (12.0-15.0); Immature Granulocyte Absolute 0.02 K/mm3 (0.00-0.031); Immature Granulocyte Percent A 0.3 % (0-0.5); Lymphocytes Absolute Auto 1.89 K/mm3 (0.9-3.2); Lymphocytes Percent Auto 29.9 % (18.3-44.2); Mean Corpuscular HGB Conc 31.7 g/dl (32-36); Mean Corpuscular Hemoglobin 29.2 pg (26-34); Mean Platelet Volume 10.9 fl (7.4-10.4); Monocytes Absolute Auto 0.5 K/mm3 (0.1-0.6); Monocytes Percent Auto 8.2 % (2.6-8.5); Neutrophils Absolute Auto 3.6 K/mm3 (1.3-6.7); Neutrophils Percent Auto 56.4 % (45.5-73.1); Platelet Count Result 226 k/mm3 (150-375); Red Blood Count 4.63 M/mm3 (4.2-5.4); Red Cell Distribution Width 15.2 % (11.5-14.5); White Blood Count 6.3 K/mm3 (4.5-10.0)
[2023-05-12 12:32] LABS: Hemoglobin A1C 4.9 % (<5.7)
[2023-05-12 12:42] LABS: Alanine Aminotransferase 22 U/L (6-35); Albumin Level 3.8 g/dL (3.5-5.1); Alkaline Phosphatase 87 U/L (38-126); Anion Gap 4 mmol/L (8-16); Aspartate Amino Transferase 24 U/L (14-36); Bilirubin,Total 0.7 mg/dL (0.2-1.3); Blood Urea Nitrogen 13 mg/dL (7-17); Calcium 9.2 mg/dL (8.4-10.2); Carbon Dioxide 29 mmol/L (22-30); Chloride 104 mmol/L (98-107); Cholesterol 173 mg/dL (0-200); Estimated Glomerular Filt Rate 57; Glucose 116 mg/dL (65-110); HDL Direct 65 mg/dL; Potassium 3.7 mmol/L (3.4-5.0); Sodium 137 mmol/L (137-145); Triglycerides 78 mg/dL (<150)
[2023-05-12 12:54] LABS: LDL Cholesterol Direct 80 mg/dL
[2023-05-12 13:12] LABS: Creatinine Urine 42.5 mg/dL
[2023-05-12 13:46] LABS: Free T4 Free Thyroxine 1.92 ng/mL (0.78-2.19)
[2023-05-12 14:55] LABS: MALB Creatinine Ratio < 14.1 mg/g (0-30); Microalbumin Urine Random < 6.0 mg/L (0-16.7)
[2023-05-17 14:17] LABS: Triiodothyronine T3 Free 2.6 pg/mL (2.3-4.2)
== END 2023-05-12 11:50 | disposition home or self-care (01) ==
PROVIDERS: PCP Internal Medicine; Visit Provider Internal Medicine Endocrinology, Diabetes & Metabolism
DX: E78.5 Hyperlipidemia, unspecified (principal); E11.9 Type 2 diabetes mellitus without complications; E55.9 Vitamin D deficiency, unspecified; E03.9 Hypothyroidism, unspecified
CPT/HCPCS: 36415; 80053; 80061; 82043; 82306; 83036; 84439; 84443; 84481; 85025

== ENCOUNTER 2023-07-07 02:17 | Day surgery (SDC) | payer OTHER, MEDICARE, SELFPAY ==
[2023-06-30 15:09] VITALS: BMI 37.0
--- NOTE | 2023-06-30 15:11 | PC.NURSE ---
Report to the Outpatient Waiting Room, entrance under the green pavilion located off [facility], at time 1030 on date _07/07/23_. Planned Procedure Time: __1230__. Time changes happen often and if your time is changed the preop area will call you the afternoon before. - You and your visitor will be asked to self-screen and do not enter if you have any COVID symptoms. - A mask is optional within the hospital at this time. Patients may have clear liquids (water, carbonated beverages, clear teas, apple juice) until 3 hours prior to surgery with a maximum of 20 ounces. - No food from midnight until time of surgery - Infants may have breast milk until 4 hours before surgery, infant formula 6 hours prior to surgery. - Children will be allowed to drink immediately following surgery. If applicable, please bring a bottle or sippy cup to assist with drinking. Juice, water, soda, and popsicles are readily available. For infants on formula, please bring formula the day of surgery. Pacifiers are allowed. Take the following medications with a SIP of water the morning of surgery: __INHALER, EYE DROPS, BUSPIRONE, DILTIAZEM, HYDROXICHLOROQUIN, LEVOTHYROXINE, OXYBUTININE, PAIN AND NAUSEA MEDICATION IF NEEDED DO NOT STOP ANY OF YOUR OTHER PRESCRIPTION MEDICATIONS PRIOR TO SURGERY ?EXCEPT THE FOLLOWING Medications to discontinue per physician VITAMINS, SUPPLIMENTS Date to take last dose 07/04/23 Please no make-up, nail indonesian, hairspray, perfume, deodorant, or body powder the day of surgery. No jewelry (including any body piercings) or valuables the day of surgery, leave them at home. Please take a shower or bath the night before, or the morning of, surgery with an antibacterial soap. Wear comfortable, loose fitting clothing. Children are encouraged to wear pajamas. - Jewelry must be removed prior to entering the operating room. Rings and piercings that are not removed may be cut off. - The hospital will not accept responsibility for valuables. - Please leave all valuables, including medications, at home the day of surgery. If you are going home after surgery, a licensed hazmat truck driver must drive you home. - NO public transportation without another adult if you receive anesthesia. - We recommend that an adult stay with you for 24 hours following discharge. - We also recommend that you do not drive, make important decision, drink alcoholic beverages, or take any drugs that were not prescribed by your health care provider for at least 24 hours after your discharge time. For Pediatric surgeries, we recommend two adults accompany the child home. Follow any additional instructions given to you from your surgeon. If you or anyone in your household have experienced Covid symptoms in the past week, please notify your surgeon or the nurse liaison at the phone number below for possible testing. Telephone instructions given to _PATIENT_and asked if any additional questions and then verbalized understanding. Patient advised to call surgeon office or pre surgery nurse liaison [phone] if any additional questions.
--- NOTE | 2023-07-06 11:47 | PM.IMHP ---
H&P: HPI History of Present Illness Date/Time: 07/06/23 11:47 Chief Complaint: Chronic sinusitis recirculation septal deviation turbinate hypertrophy rafaela bullosa recurrent sinusitis Narrative: planned procedure Review of Systems Review of Systems: All systems reviewed & are unremarkable except as noted in HPI and below PMFSH Past Medical History Medical History Acute respiratory failure with hypoxia LISA (acute kidney injury) (~12/2020) Aspergillus Asthma with COPD PFTs 05/10/2020 BPPV (benign paroxysmal positional vertigo) Dry eyes Edema GERD (gastroesophageal reflux disease) Hemoptysis Herpes Hypothyroid IgG deficiency Morbid obesity Necrotizing pneumonia (~01/2021) MSSA YOON (obstructive sleep apnea) With CPAP of 7 Osteoarthritis Pituitary tumor Pneumonia due to COVID-19 virus (~12/2020) Prediabetes Rheumatoid arthritis Screening mammogram, encounter for Staphylococcus aureus pneumonia (~12/2019) SVT (supraventricular tachycardia) Urinary incontinence Vertigo Vitamin D deficiency Surgical History Surgical History H/O lateral meniscus repair of right knee History of arthroscopy of knee (01/02/19) History of bronchoscopy (~12/2020) History of (~1996) History of dilation and curettage 04/20/17 hscope d&c--PMB--weakly proliferative endometrium 09/19/19 hscope d&c--PMB--dysmenorrhea--benign History of eye surgery muscle repair in eye History of hand surgery cyst removed from right hand History of incision and drainage 2013--abscess of left upper thigh History of removal of cyst cysts removal from right side of face History of robot-assisted laparoscopic hysterectomy 10/17/19 RA TLH w/BSO for PMB History of sinus surgery History of tonsillectomy History of tubal ligation Hx of cholecystectomy Family History Family History Father Thyroid cancer Lung cancer Carcinoma of colon Hypertension Myocardial infarct Mother Brain cancer Colitis Depression Lung cancer COPD (chronic obstructive pulmonary disease) Diabetes mellitus Hypertension CAD (coronary artery disease) Social History Social History Social History: Patient lives at home with her of 27 years, Rodolfo. Her 29-year-old son and daughter in law also live with them. 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 Primary care provider: Dr. Dirk Solis Code status: Full code Surrogate decision maker: Smoking packs per day: 1 Smoking cigarettes per day: 20.0 Years smoked: 10 Smoking pack-years: 10.00 Smoking status: Former smoker Tobacco type: cigarettes Second hand tobacco smoke exposure: Yes Alcohol intake: never Alcohol use details: rarely Substance use: never Substance use type: does not use Lack of Transportation: No Lack of Food: Never True Current Housing: I Have Housing Concerned About Future Housing: No Difficulty Paying Gas/Electric Bills: No Difficulty Paying for Meds: No Currently Unemployed: No Education: High School Diploma/GED Difficulty w/ Childcare or Family Care: No Living arrangements: with family Additional living arrangements comments: Occupation/Education: unemployed 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
[2023-07-07] VITALS (9 sets, daily range): BP systolic 139–166; BP diastolic 62–92; PULSE 70–76; RESP 14–18; TEMP 36.3–37; O2SAT 98–100
--- NOTE | 2023-07-07 07:16 | WPDHPUPDATE1 ---
History and Physical Update Update Date/Time: 07/07/23 07:16 History and Physical has been reviewed, including an updated exam of the patient. There are NO changes in the patient's condition. Risks, benefits, and alternatives have been discussed and questions answered. Patient agrees to proceed with procedure.
[2023-07-07] MEDS: ACETAMINOPHEN 500 MG TABLET 1000 MG PO (10:41)
--- NOTE | 2023-07-07 10:58 | WPDANESEPPF ---
Anes - Initial Pre Proc Eval Procedure: Operation Date: 07/07/23 12:30 Proposed Procedures p Image Guided Bilateral Maxillary Antrostomy without Tissue Removal, Bilateral Inferior Turbinectomy with Outfracture Left Resection Radha Bullosa, - Tin Howard MD s Endoscopic Septoplasty - Tin Hoawrd MD Date/Time: 07/07/23 10:58 Surgeon: Tin Howard MD Pre Op Diagnosis: Chr Sinusitis Patient Data Age: 58 Gender: F Height: 1.6 m Weight: 96 kg Last Vital Signs Temp 37.0 C 07/07/23 10:34 Pulse 74 07/07/23 10:34 Resp 18 07/07/23 10:34 BP 145/62 H 07/07/23 10:34 Pulse Ox 98 07/07/23 10:34 O2 Del Method Room Air 07/07/23 10:34 Allergies Allergy/AdvReac Type Severity Reaction Status Date / Time amoxicillin Allergy Severe Hives Verified 07/07/23 10:28 fentanyl Allergy Severe Difficulty Verified 07/07/23 10:28 Breathing peach Allergy Severe Itching Verified 07/07/23 10:28 Sulfa (Sulfonamide Allergy Severe Hives Verified 07/07/23 10:28 Antibiotics) amitriptyline AdvReac Mild Unknown Verified 07/07/23 10:28 Home Medications Medication Instructions Recorded Confirmed Type losartan 50 mg tablet 100 mg PO DAILY 10/21/19 06/28/23 History montelukast 10 mg tablet 10 mg PO DAILY 10/21/19 06/28/23 History fenofibrate nanocrystallized 48 mg 48 mg PO DAILY 07/28/20 06/28/23 History tablet loratadine 10 mg tablet 10 mg PO DAILY PRN Congestion 07/28/20 06/28/23 History celecoxib 200 mg capsule 200 mg PO DAILY 01/22/21 06/28/23 History folic acid 1 mg tablet 3 - 4 mg PO DAILY 01/22/21 06/28/23 History leflunomide 20 mg tablet 20 mg PO DAILY 01/22/21 06/28/23 History spironolactone 50 mg tablet 50 mg PO DAILY 01/22/21 06/28/23 History ondansetron HCl 4 mg tablet 4 mg PO BID PRN Nausea 04/21/21 06/28/23 History metformin 500 mg tablet,extended 500 mg PO DAILY 10/19/21 06/28/23 History release 24 hr tramadol 50 mg tablet 50 mg PO TID PRN Pain 10/19/21 06/28/23 History omeprazole 20 mg capsule,delayed 40 mg PO DAILY PRN Acid Reflux #30 11/01/21 06/28/23 Rx release caps diltiazem HCl 120 mg 120 mg PO DAILY 12/01/21 06/28/23 History capsule,extended release 24 hr fluticasone propionate 50 2 spray intranasal DAILY 12/15/21 06/28/23 History mcg/actuation nasal spray,suspension cholecalciferol (vitamin D3) 50 50 mcg PO DAILY 01/11/22 06/28/23 History mcg (2,000 unit) capsule cyclosporine 0.05 % eye drops 1 drp EACH EYE Q12H PRN Dry Eyes 01/11/22 06/28/23 History guaifenesin 600 mg tablet, 600 mg PO BID PRN Congestion 01/11/22 06/28/23 History extended release 12 hr (Mucinex) hydroxychloroquine 200 mg tablet 200 mg PO DAILY 01/11/22 06/28/23 History (Plaquenil) meclizine 25 mg tablet 25 mg PO BID PRN Dizziness 01/11/22 06/28/23 History albuterol sulfate 90 mcg/actuation See Rx Instructions .Route 08/01/22 06/28/23 Rx aerosol inhaler .COMPLEX #8.5 grams levothyroxine 88 mcg tablet 100 mcg PO DAILY 10/05/22 06/28/23 History (Synthroid) oxybutynin chloride 5 mg 10 mg PO QAM 10/05/22 06/28/23 History tablet,extended release 24 hr (Ditropan XL) mupirocin 2 % topical ointment See Rx Instructions topical 12/09/22 06/28/23 Rx .COMPLEX #22 grams buspirone 5 mg tablet 5 mg PO DAILY 06/28/23 06/28/23 History Patient hx anesthesia problems: post op nausea/vomiting Family hx anesthesia problems: other (early awakening) Results Review: All pre-operative results and documents have been reviewed as part of the pre-operative evaluation. [facility] Past Medical History Medical History Acute respiratory failure with hypoxia LISA (acute kidney injury) (~12/2020) Aspergillus Asthma with COPD PFTs 05/10/2020 BPPV (benign paroxysmal positional vertigo) Dry eyes Edema GERD (gastroesophageal reflux disease) Hemoptysis Herpes Hypothyroid IgG deficiency Morbid obesity Necrotizing pneumonia (~01/2021) MSSA YOON (obstru
[2023-07-07] MEDS: SCOPOLAMINE 1.5 MG PATCH TRANSDERM (13:16)
[2023-07-07] MEDS: MIDAZOLAM HCL (*CRX) 2 MG/2 ML VIAL IV PUSH (13:19)
[2023-07-07] MEDS: LACTATED RINGERS 1,000 ML 30 ML IV CONT ×2 (13:22→15:35)
[2023-07-07 13:42] LABS: Glucose Point of Care 85 mg/dl (65-105)
[2023-07-07] MEDS: ceFAZolin 2 GM/D5W 50 ML 2 GM/50 ML BAG IVPB (13:44)
[2023-07-07] MEDS: LIDO 1%/EPINEPHRINE 1:100,000 20 ML VIAL 10 ML INFILTRATE (14:20)
[2023-07-07] MEDS: OXYMETAZOLINE HCL 0.05% NAS 15 ML BTL (*BKC) 1 SPRAY NASAL (14:21)
[2023-07-07] MEDS: MUPIROCIN 2% OINT 22 GM TUBE 1 APPLIC EACH NARE (15:12)
--- NOTE | 2023-07-07 16:00 | W.PM.PROC2 ---
Procedure Note - Detailed Date of Procedure 07/07/23 Pre-op Diagnosis Chr Sinusitis still obstruction, recirculation, turbinate hypertrophy, septal deviation, left rafaela bullosa Post-op Diagnosis Same Procedure Performed Excision left rafaela bullosa, endoscopic assisted septoplasty, turbinate reduction with outfracture bilaterally, bilateral revision maxillary antrostomies endoscopic image guided Surgeon Tin Howard MD Anesthesia General Indications See above Findings Recirculation phenomenon bilaterally septal deviation big turbinates left small rafaela Description of Procedure Patient identified consent verified preop. Patient brought to the operating room. Time-out performed. General anesthesia induced endotracheal tube secured airway. Patient brought position. Procedure confirmed. Second time-out performed. Image guided initiated and confirmed. Afrin-soaked pledgets placed for 5 minutes then removed. Total 13 a sorry 9 cc 1% lidocaine 1 100,000 parts epinephrine injected bilateral nasal septum inferior turbinates left rafaela bullosa rafaela bullosa resected with sickle blade microdebrider. [place] incision made left nasal septum left nasal septal flap elevated no perforations right nasal septal flap elevated no perforations deviated septum removed Zach [place] forceps Yfn forceps and osteotome. Nasal stick incision closed with 3 interrupted 5 0 fast gut sutures septum was quilt stitched as well stitching the middle turbinates medially. Turbinates reduced in submucosal plane using microdebrider turbinate blade. This was bilateral. They were then outfractured with [place] elevator. Maxillary antrostomies performed with backbiter double ball tip probe straight through cut under image guidance microdebrider as well. They were ensured to connect to the natural os by using the 30 degree scope. Bilateral nasal passages were then copiously irrigated with sterile normal saline. No pack was placed bilaterally. Barbosa splints were trimmed placed bilaterally sutured anteriorly using 3-0 mattress nylon suture. Patient tolerated the procedure very well total blood loss 50 cc. I performed all dictated portions of procedure no complications. Patient taken to PACU. Estimated Blood Loss 50 Drains No Packing Yes (Nova pack) Pathology None sent Complications No immediate complications Condition Stable Disposition PACU [facility] Billing Surgery - Charge Forward: Surgery Billing
[2023-07-07 16:08] LABS: Glucose Point of Care 85 mg/dl (65-105)
[2023-07-07] MEDS: oxyCODONE (*CRX) 5 MG/5 ML ORAL SOLN IR PO (16:45)
== END 2023-07-07 17:45 | disposition home or self-care (01) ==
PROVIDERS: PCP Internal Medicine; Visit Provider Otolaryngology
PROC: (CPT 31256; principal; 2023-07-07 12:30)
PROC: (CPT 30520; 2023-07-07 12:30)
DX: J32.9 Chronic sinusitis, unspecified (principal); J34.3 Hypertrophy of nasal turbinates; J34.2 Deviated nasal septum; R09.82 Postnasal drip; J34.89 Other specified disorders of nose and nasal sinuses; J44.9 Chronic obstructive pulmonary disease, unspecified; E03.9 Hypothyroidism, unspecified; K21.9 Gastro-esophageal reflux disease without esophagitis; D80.3 Selective deficiency of immunoglobulin G [IgG] subclasses; G47.33 Obstructive sleep apnea (adult) (pediatric); M06.9 Rheumatoid arthritis, unspecified; R73.03 Prediabetes; I47.1 Supraventricular tachycardia; E55.9 Vitamin D deficiency, unspecified; Z87.891 Personal history of nicotine dependence; Z79.84 Long term (current) use of oral hypoglycemic drugs; Z79.51 Long term (current) use of inhaled steroids; E66.9 Obesity, unspecified; Z68.37 Body mass index [BMI] 37.0-37.9, adult
CPT/HCPCS: 31256; 30520; 30140; 31240; 61782; 82948; A9270; J0690; J1100; J1170; J2250; J2405; J2704; J7120

== ENCOUNTER 2023-09-12 08:16 | Outpatient (CLI) | payer OTHER, MEDICARE, SELFPAY ==
[2023-09-12 09:08] LABS: Basophils Absolute Auto 0.1 K/mm3 (0.0-0.1); Basophils Percent Auto 1.3 % (0.2-1.2); Eosinophils Absolute Auto 0.2 K/mm3 (0-0.3); Eosinophils Percent Auto 4.5 % (0-4.4); Hematocrit 43.9 % (37.0-47.0); Hemoglobin 13.7 g/dL (12.0-15.0); Immature Granulocyte Absolute 0.01 K/mm3 (0.00-0.031); Immature Granulocyte Percent A 0.3 % (0-0.5); Lymphocytes Percent Auto 32.7 % (18.3-44.2); Mean Corpuscular HGB Conc 31.2 g/dl (32-36); Mean Corpuscular Hemoglobin 28.8 pg (26-34); Mean Corpuscular Volume 92.4 fl (80-100); Mean Platelet Volume 10.8 fl (7.4-10.4); Monocytes Absolute Auto 0.5 K/mm3 (0.1-0.6); Monocytes Percent Auto 12.8 % (2.6-8.5); Neutrophils Absolute Auto 1.9 K/mm3 (1.3-6.7); Neutrophils Percent Auto 48.4 % (45.5-73.1); Platelet Count Result 184 k/mm3 (150-375); Red Blood Count 4.75 M/mm3 (4.2-5.4); Red Cell Distribution Width 14.5 % (11.5-14.5)
[2023-09-12 09:21] LABS: Alanine Aminotransferase 22 U/L (6-35); Albumin Level 4.1 g/dL (3.5-5.1); Alkaline Phosphatase 75 U/L (38-126); Anion Gap 8 mmol/L (8-16); Aspartate Amino Transferase 24 U/L (14-36); Bilirubin,Total 0.9 mg/dL (0.2-1.3); Blood Urea Nitrogen 13 mg/dL (7-17); Calcium 9.4 mg/dL (8.4-10.2); Carbon Dioxide 30 mmol/L (22-30); Chloride 100 mmol/L (98-107); Cholesterol 190 mg/dL (0-200); Estimated Glomerular Filt Rate > 60; Glucose 83 mg/dL (65-110); HDL Direct 73 mg/dL; Potassium 3.9 mmol/L (3.4-5.0); Sodium 138 mmol/L (137-145); Triglycerides 99 mg/dL (<150)
[2023-09-12 09:23] LABS: Hemoglobin A1C 4.8 % (<5.7)
[2023-09-12 09:33] LABS: LDL Cholesterol Direct 79 mg/dL
[2023-09-12 09:43] LABS: Free T4 Free Thyroxine 2.06 ng/mL (0.78-2.19); Vitamin D 25 Hydroxy 68.3 ng/mL
[2023-09-12 09:50] LABS: Microalbumin Urine Random < 6.0 mg/L (0-16.7)
[2023-09-12 09:51] LABS: MALB Creatinine Ratio < 15.4 mg/g (0-30)
== END 2023-09-12 08:17 | disposition home or self-care (01) ==
LOC: ANHLAB 08:19
PROVIDERS: PCP Internal Medicine; Visit Provider Internal Medicine
DX: E78.5 Hyperlipidemia, unspecified (principal); E11.9 Type 2 diabetes mellitus without complications; E55.9 Vitamin D deficiency, unspecified
CPT/HCPCS: 36415; 80053; 80061; 82043; 82306; 83036; 84439; 84443; 85025

== ENCOUNTER 2023-11-03 12:24 | Emergency (ER) | payer OTHER, MEDICARE, SELFPAY ==
[2023-11-03 12:45] VITALS: BP 137/82; PULSE 79; RESP 16; TEMP 36.6; O2SAT 100
--- NOTE | 2023-11-03 13:29 | ED.SKABFB ---
HPI - Skin/Abscess/Foreign Bdy General Chief complaint: Skin/Abscess/Foreign Body Stated complaint: Rash Time Seen by Provider: 11/03/23 13:29 Source: patient Mode of arrival: ambulatory Limitations: no limitations History of Present Illness HPI narrative: 58-year-old female with hx RA, DM, HTN presenting for complaint of itchy rash for about 2 days. She states rash is red bumps, and is mostly to the upper chest and both arms, and states she has a couple of spots in her mouth. Has been using triamcinolone without much relief. Reports history of dermatitis but this feels different. Denies lip, tongue, or throat swelling, shortness of breath or wheezing. Denies changes to soap, detergent, lotion, or any other exposures. No one else in the house or any contacts with similar symptoms. Related Data Home Medications Medication Instructions Recorded Confirmed losartan 50 mg tablet 100 mg PO DAILY 10/21/19 08/24/23 montelukast 10 mg tablet 10 mg PO DAILY 10/21/19 08/24/23 fenofibrate nanocrystallized 48 mg 48 mg PO DAILY 07/28/20 08/24/23 tablet loratadine 10 mg tablet 10 mg PO DAILY PRN Congestion 07/28/20 08/24/23 celecoxib 200 mg capsule 200 mg PO DAILY 01/22/21 08/24/23 folic acid 1 mg tablet 3 - 4 mg PO DAILY 01/22/21 08/24/23 leflunomide 20 mg tablet 20 mg PO DAILY 01/22/21 08/24/23 spironolactone 50 mg tablet 50 mg PO DAILY 01/22/21 08/24/23 ondansetron HCl 4 mg tablet 4 mg PO BID PRN Nausea 04/21/21 08/24/23 metformin 500 mg tablet,extended 500 mg PO DAILY 10/19/21 08/24/23 release 24 hr tramadol 50 mg tablet 50 mg PO TID PRN Pain 10/19/21 08/24/23 diltiazem HCl 120 mg 120 mg PO DAILY 12/01/21 08/24/23 capsule,extended release 24 hr cholecalciferol (vitamin D3) 50 50 mcg PO DAILY 01/11/22 08/24/23 mcg (2,000 unit) capsule guaifenesin 600 mg tablet, 600 mg PO BID PRN Congestion 01/11/22 08/24/23 extended release 12 hr (Mucinex) hydroxychloroquine 200 mg tablet 200 mg PO DAILY 01/11/22 08/24/23 (Plaquenil) meclizine 25 mg tablet 25 mg PO BID PRN Dizziness 01/11/22 08/24/23 levothyroxine 88 mcg tablet 100 mcg PO DAILY 10/05/22 08/24/23 (Synthroid) oxybutynin chloride 5 mg 10 mg PO QAM 10/05/22 08/24/23 tablet,extended release 24 hr (Ditropan XL) buspirone 5 mg tablet 5 mg PO DAILY 06/28/23 08/24/23 tirzepatide 10 mg/0.5 mL 10 mg subcut WEEKLY 07/26/23 08/24/23 subcutaneous pen injector (Mounjaro) Allergies Allergy/AdvReac Type Severity Reaction Status Date / Time amoxicillin Allergy Severe Hives Verified 11/03/23 12:56 fentanyl Allergy Severe Difficulty Verified 11/03/23 12:56 Breathing peach Allergy Severe Itching Verified 11/03/23 12:56 Sulfa (Sulfonamide Allergy Severe Hives Verified 11/03/23 12:56 Antibiotics) amitriptyline AdvReac Mild Unknown Verified 11/03/23 12:56 Review of Systems Review of Systems: CONSTITUTIONAL: Denies body aches, fever, chills, or sweats. EYES: Denies visual changes, redness, or discharge. ENT: Denies rhinorrhea, congestion CARDIOVASCULAR: Denies chest pain, palpitations, or edema. RESPIRATORY: Denies cough or dyspnea. GASTROINTESTINAL: Denies abdominal pain, nausea, vomiting, or diarrhea. SKIN: per HPI MUSCULOSKELETAL: Denies back pain, joint pain, or myalgia. NEUROLOGIC: Denies headache, numbness, tingling, or weakness. [facility] Past Medical History Medical History Acute respiratory failure with hypoxia LISA (acute kidney injury) (~12/2020) Aspergillus Asthma with COPD PFTs 05/10/2020 BPPV (benign paroxysmal positional vertigo) Dry eyes Edema GERD (gastroesophageal reflux disease) Hemoptysis Herpes Hypothyroid IgG deficiency Morbid obesity Necrotizing pneumonia (~01/2021) MSSA YOON (obstructive sleep apnea) With CPAP of 7 Osteoarthritis Pituitary tumor Pneumonia due to COVID-19 virus (~12/2020) Prediabetes Rheumatoid arthritis Screening mammogram, encounter for Staphy
[2023-11-03] MEDS: methylPREDNISolone SOD SUCC 125 MG VIAL IM (13:46)
== END 2023-11-03 14:05 | disposition home or self-care (01) ==
PROVIDERS: Emergency Provider Nurse Practitioner Family; PCP Internal Medicine
DX: L30.9 Dermatitis, unspecified (principal); K21.9 Gastro-esophageal reflux disease without esophagitis; E03.9 Hypothyroidism, unspecified; D80.3 Selective deficiency of immunoglobulin G [IgG] subclasses; E66.01 Morbid (severe) obesity due to excess calories; Z68.36 Body mass index [BMI] 36.0-36.9, adult; G47.33 Obstructive sleep apnea (adult) (pediatric); R73.03 Prediabetes; M06.9 Rheumatoid arthritis, unspecified; E55.9 Vitamin D deficiency, unspecified; M19.90 Unspecified osteoarthritis, unspecified site; J44.9 Chronic obstructive pulmonary disease, unspecified
CPT/HCPCS: 96372; 99213; G0463; J2930

== ENCOUNTER 2023-11-03 15:02 | Outpatient (CLI) | payer OTHER, MEDICARE, SELFPAY ==
--- NOTE | ~2023-11-03 | CT_ITS ---
EXAMINATION:CT diagnostic chest wo con DATE: 11/03/2023 15:26 INDICATION: Solitary nodule of lung. TECHNIQUE: Computed tomography (CT) of the chest was performed without intravenous contrast. Automate d exposure control and iterative reconstruction technique were employed. The dose-length product (DLP ) was 175.87 mGy-cm. COMPARISON: Chest CT 05/10/2022 FINDINGS: There is chronic mild elevation of right hemidiaphragm. There is mild atelectasis bilateral ly. Calcified bilateral pulmonary nodules and calcified hilar lymph nodes are consistent with old gra nulomatous disease. No pleural effusion. The heart size is normal. There are coronary artery calcific ations. No pericardial effusion. There are changes of cholecystectomy. Calcifications in the spleen a re consistent with old granulomatous disease. There is a 5.2 cm cyst in left kidney. There is severe thoracic spondylosis. IMPRESSION: 1. Chronic mild elevation of right hemidiaphragm. Reviewed, dictated and finalized at location E. [facility] PROGRAM COORDINATOR
== END 2023-11-03 15:03 | disposition home or self-care (01) ==
PROVIDERS: PCP Internal Medicine; Visit Provider Internal Medicine
DX: R91.1 Solitary pulmonary nodule (principal); J98.6 Disorders of diaphragm
CPT/HCPCS: 71250

== ENCOUNTER 2023-11-08 12:31 | Emergency (ER) | payer OTHER, MEDICARE, SELFPAY ==
--- NOTE | ~2023-11-08 | XR_ITS ---
EXAMINATION: XR chest 2V Exam Date/Time: 11/08/2023 18:00 RESERVOIR ENGINEERING MANAGER HISTORY: dyspnea, cough Comparison: 11/23/2022 and 10/26/2022. RESULT: Lines, tubes, and devices: Cholecystectomy clips. Lungs and pleura: Clear. Stable left midlung granuloma. Cardiomediastinal silhouette: Stable. Unchanged right hemidiaphragm elevation. Other: No acute osseous or upper abdominal finding. IMPRESSION: No acute cardiopulmonary process. Reviewed, dictated and finalized at location K. RVOIR ENGINEERING MANAGER
[2023-11-08 12:40] VITALS: BP 165/113; PULSE 99; RESP 16; TEMP 36.7; O2SAT 96
[2023-11-08 15:51] VITALS: O2SAT 98
--- NOTE | 2023-11-08 17:28 | ECG_ITS ---
Measurements Intervals [place] Rate: 77 P: 36 MS: 154 QRS: 55 QRSD: 82 T: 57 QT: 354 QTc: 402 Interpretive Statements SINUS RHYTHM DELAYED PRECORDIAL R/S TRANSITION BASELINE ARTIFACT- V1 BORDERLINE ECG COMPARED TO ECG 09/17/2022 19:38:09 NO SIGNIFICANT CHANGES Electronically Signed On 11-08-2023 19:05:16 CHILLER OPERATOR by Jake Cassidy D.O.
--- NOTE | 2023-11-08 17:33 | ED.URI ---
HPI - URI/Sore Throat General Chief Complaint: Upper Respiratory Infection Stated Complaint: sent by PCP for SOB/cough Time Seen by Provider: 11/08/23 17:07 History of Present Illness HPI Narrative: 58-year-old female with a history of RA, IgG deficiency, type 2 diabetes, YOON, COPD, asthma reports for evaluation for sinus congestion, sore throat x2 days. Patient states placement like ago, she went to urgent care for a rash which she describes as hives. States she was started on steroids and Pepcid which she took and improved her rash. She states around the time that she began having a rash, she also started having Painful white lesions develop in her mouth which have since worsened. She was started on viscous lidocaine solution without improvement. Patient is also reporting exertional dyspnea over the past 2 days With a productive cough. She denies lower extremity edema, history of DVT. She does admit she has had 4 times in the past 3 years is 8 COVID multiple times. Patient is on hydroxychloroquine, leflunomide, and an infusion every 3 months for her RA. Patient also states she gets gamma Plex infusions every 3 months for IVIG deficiency. Related Data Home Medications Medication Instructions Recorded Confirmed losartan 50 mg tablet 100 mg PO DAILY 10/21/19 08/24/23 montelukast 10 mg tablet 10 mg PO DAILY 10/21/19 08/24/23 fenofibrate nanocrystallized 48 mg 48 mg PO DAILY 07/28/20 08/24/23 tablet loratadine 10 mg tablet 10 mg PO DAILY PRN Congestion 07/28/20 08/24/23 celecoxib 200 mg capsule 200 mg PO DAILY 01/22/21 08/24/23 folic acid 1 mg tablet 3 - 4 mg PO DAILY 01/22/21 08/24/23 leflunomide 20 mg tablet 20 mg PO DAILY 01/22/21 08/24/23 spironolactone 50 mg tablet 50 mg PO DAILY 01/22/21 08/24/23 ondansetron HCl 4 mg tablet 4 mg PO BID PRN Nausea 04/21/21 08/24/23 metformin 500 mg tablet,extended 500 mg PO DAILY 10/19/21 08/24/23 release 24 hr tramadol 50 mg tablet 50 mg PO TID PRN Pain 10/19/21 08/24/23 diltiazem HCl 120 mg 120 mg PO DAILY 12/01/21 08/24/23 capsule,extended release 24 hr cholecalciferol (vitamin D3) 50 50 mcg PO DAILY 01/11/22 08/24/23 mcg (2,000 unit) capsule guaifenesin 600 mg tablet, 600 mg PO BID PRN Congestion 01/11/22 08/24/23 extended release 12 hr (Mucinex) hydroxychloroquine 200 mg tablet 200 mg PO DAILY 01/11/22 08/24/23 (Plaquenil) meclizine 25 mg tablet 25 mg PO BID PRN Dizziness 01/11/22 08/24/23 levothyroxine 88 mcg tablet 100 mcg PO DAILY 10/05/22 08/24/23 (Synthroid) oxybutynin chloride 5 mg 10 mg PO QAM 10/05/22 08/24/23 tablet,extended release 24 hr (Ditropan XL) buspirone 5 mg tablet 5 mg PO DAILY 06/28/23 08/24/23 tirzepatide 10 mg/0.5 mL 10 mg subcut WEEKLY 07/26/23 08/24/23 subcutaneous pen injector (Mounjaro) Allergies Allergy/AdvReac Type Severity Reaction Status Date / Time amoxicillin Allergy Severe Hives Verified 11/08/23 12:32 fentanyl Allergy Severe Difficulty Verified 11/08/23 12:32 Breathing peach Allergy Severe Itching Verified 11/08/23 12:32 Sulfa (Sulfonamide Allergy Severe Hives Verified 11/08/23 12:32 Antibiotics) amitriptyline AdvReac Mild Unknown Verified 11/08/23 12:32 Review of Systems Review of Systems: CONSTITUTIONAL: Denies fever, chills, or sweats. EYES: Denies visual changes, redness, or discharge. ENT: See HPI CARDIOVASCULAR: Denies chest pain, palpitations, or edema. RESPIRATORY: see HPI GASTROINTESTINAL: Denies abdominal pain, nausea, vomiting, or diarrhea. GENITOURINARY: Denies dysuria or hematuria. SKIN: Denies rash or itching. MUSCULOSKELETAL: Denies back pain, joint pain, or myalgia. NEUROLOGIC: Denies headache, numbness, or weakness. PSYCHIATRIC: Denies anxiety or depression. [facility] Past Medical History Medical History Acute respiratory failure with hypoxia LISA (acute kidney injury) (~12/2020) Aspergillus Asthma with COPD PFTs 04/29
[2023-11-08] MEDS: ALBUTEROL SULFATE NEB 2.5 MG/3 ML INH INHALATION (17:40)
[2023-11-08] MEDS: IPRATROPIUM BR 0.02% INH SOLN 0.5 MG/2.5 ML VIAL INHALATION (17:40)
[2023-11-08 17:58] LABS: Basophils Absolute Auto 0.1 K/mm3 (0.0-0.1); Eosinophils Absolute Auto 0.1 K/mm3 (0-0.3); Eosinophils Percent Auto 1.8 % (0-4.4); Hematocrit 48.2 % (37.0-47.0); Hemoglobin 14.9 g/dL (12.0-15.0); Immature Granulocyte Absolute 0.03 K/mm3 (0.00-0.031); Immature Granulocyte Percent A 0.5 % (0-0.5); Lymphocytes Absolute Auto 1.57 K/mm3 (0.9-3.2); Mean Corpuscular HGB Conc 30.9 g/dl (32-36); Monocytes Percent Auto 15.9 % (2.6-8.5); Neutrophils Absolute Auto 3.3 K/mm3 (1.3-6.7); Neutrophils Percent Auto 54.8 % (45.5-73.1); Platelet Count Result 192 k/mm3 (150-375); Red Blood Count 5.13 M/mm3 (4.2-5.4); Red Cell Distribution Width 13.5 % (11.5-14.5); White Blood Count 6.1 K/mm3 (4.5-10.0)
[2023-11-08 18:09] LABS: Alanine Aminotransferase 16 U/L (6-35); Alkaline Phosphatase 93 U/L (38-126); Anion Gap 6 mmol/L (8-16); Aspartate Amino Transferase 19 U/L (14-36); Bilirubin,Total 0.9 mg/dL (0.2-1.3); Blood Urea Nitrogen 13 mg/dL (7-17); Calcium 9.1 mg/dL (8.4-10.2); Carbon Dioxide 32 mmol/L (22-30); Chloride 102 mmol/L (98-107); Estimated Glomerular Filt Rate > 60; Glucose 80 mg/dL (65-110); INR 0.9; Prothrombin Time 12.8 Seconds (11.1-14.7); Sodium 140 mmol/L (137-145)
[2023-11-08 18:21] LABS: Troponin I < 0.012 ng/mL (0.000-0.034)
[2023-11-08 18:25] LABS: Strep Group A RT-PCR NOT DETECTED (Negative)
[2023-11-08 18:36] LABS: Influenza A QL RT-PCR Negative (Negative); Influenza B QL RT-PCR Negative (Negative); RSV RNA, RT-PCR Positive (Negative); SARS-CoV-2 RNA PCR Negative (Negative)
[2023-11-08 19:16] LABS: D Dimer 0.41 ug/mL (<0.48)
[2023-11-08] MEDS: FLUCONAZOLE 150 MG TABLET 200 MG PO (19:51)
[2023-11-08] MEDS: DOXYCYCLINE HYCLATE 100 MG TABLET PO (19:51)
[2023-11-08 19:54] VITALS: BP 136/76; PULSE 86; RESP 18; O2SAT 96
== END 2023-11-08 19:55 | disposition home or self-care (01) ==
PROVIDERS: Emergency Provider Physician Assistant; PCP Internal Medicine
DX: B37.0 Candidal stomatitis (principal); B97.4 Respiratory syncytial virus as the cause of diseases classified elsewhere; J44.89 Other specified chronic obstructive pulmonary disease; E11.9 Type 2 diabetes mellitus without complications; M06.9 Rheumatoid arthritis, unspecified; J45.909 Unspecified asthma, uncomplicated; E03.9 Hypothyroidism, unspecified; D80.3 Selective deficiency of immunoglobulin G [IgG] subclasses; G47.33 Obstructive sleep apnea (adult) (pediatric); E55.9 Vitamin D deficiency, unspecified; Z87.891 Personal history of nicotine dependence; Z20.822 Contact with and (suspected) exposure to COVID-19
CPT/HCPCS: 36415; 71046; 80053; 83735; 84484; 85025; 85380; 85610; 85730; 87637; 87651; 93005; 94640; 99284; A9270

== ENCOUNTER 2023-11-17 11:29 | Emergency (ER) | payer OTHER, MEDICARE, SELFPAY ==
[2023-11-17] VITALS (15 sets, daily range): BP systolic 127–140; BP diastolic 71–96; PULSE 83–95; RESP 15–29; TEMP 36.4–36.6; O2SAT 97–100
--- NOTE | ~2023-11-17 | XR_ITS ---
EXAMINATION: XR chest 2V DATE: 11/17/2023 12:26 INDICATION: Shortness of breath. Cough. TECHNIQUE: Frontal and lateral views of the chest were obtained. COMPARISON: Chest 2 views 11/08/2023, chest CT 11/03/2023 FINDINGS: There is chronic mild elevation of right hemidiaphragm. There are mild airspace opacities i n left lower lung zone. No pleural effusion or pneumothorax. The heart size is normal. Surgical clips in the right upper quadrant are likely from cholecystectomy. IMPRESSION: 1. Mild airspace opacities in left lower lung zone, consistent with atelectasis versus pneumonia. Reviewed, dictated and finalized at location E. OR EDUCATION SPECIALIST
--- NOTE | 2023-11-17 11:45 | ECG_ITS ---
Measurements Intervals [place] Rate: 89 P: 52 TX: 148 QRS: 44 QRSD: 86 T: 52 QT: 350 QTc: 426 Interpretive Statements SINUS RHYTHM CONSIDER ANTERIOR INFARCT, AGE INDETERMINATE ABNORMAL ECG COMPARED TO ECG 11/08/2023 17:59:20 NO SIGNIFICANT CHANGES Electronically Signed On 11-17-2023 12:24:23 GIFT SHOP ASSISTANT by Jake Cassidy D.O.
[2023-11-17 13:03] LABS: Basophils Absolute Auto 0.1 K/mm3 (0.0-0.1); Basophils Percent Auto 1.2 % (0.2-1.2); Eosinophils Absolute Auto 0.2 K/mm3 (0-0.3); Eosinophils Percent Auto 2.6 % (0-4.4); Hematocrit 47.4 % (37.0-47.0); Hemoglobin 14.8 g/dL (12.0-15.0); Immature Granulocyte Absolute 0.04 K/mm3 (0.00-0.031); Immature Granulocyte Percent A 0.6 % (0-0.5); Lymphocytes Absolute Auto 1.75 K/mm3 (0.9-3.2); Lymphocytes Percent Auto 26.6 % (18.3-44.2); Mean Corpuscular HGB Conc 31.2 g/dl (32-36); Mean Corpuscular Hemoglobin 28.9 pg (26-34); Mean Corpuscular Volume 92.6 fl (80-100); Mean Platelet Volume 10.8 fl (7.4-10.4); Monocytes Absolute Auto 0.6 K/mm3 (0.1-0.6); Monocytes Percent Auto 8.4 % (2.6-8.5); Neutrophils Percent Auto 60.6 % (45.5-73.1); Platelet Count Result 222 k/mm3 (150-375); Red Blood Count 5.12 M/mm3 (4.2-5.4); Red Cell Distribution Width 13.3 % (11.5-14.5); White Blood Count 6.6 K/mm3 (4.5-10.0)
[2023-11-17 13:14] LABS: Alanine Aminotransferase 16 U/L (6-35); Albumin Level 4.1 g/dL (3.5-5.1); Alkaline Phosphatase 110 U/L (38-126); Anion Gap 8 mmol/L (8-16); Aspartate Amino Transferase 23 U/L (14-36); Bilirubin,Total 0.8 mg/dL (0.2-1.3); Blood Urea Nitrogen 13 mg/dL (7-17); Calcium 9.4 mg/dL (8.4-10.2); Carbon Dioxide 28 mmol/L (22-30); Chloride 104 mmol/L (98-107); Estimated CRCL calculation 71 ml/min; Estimated Glomerular Filt Rate > 60; Glucose 86 mg/dL (65-110); Sodium 140 mmol/L (137-145)
--- NOTE | 2023-11-17 13:35 | ED.GENADULT ---
HPI - General Adult General Chief complaint: Upper Respiratory Infection Stated complaint: congestion/cough; RSV last week Time Seen by Provider: 11/17/23 13:02 Source: patient Mode of arrival: ambulatory Limitations: no limitations History of Present Illness HPI narrative: This is a 58-year-old female With PMH RA who presents to the ED with chief complaint of cough x1 week. Reports that she was diagnosed with RSV 1 week ago and given doxycycline. She has been taking that but feels that the last couple of days she started coughing more. She has concern for pneumonia. patient reports a little pain to the left side of the ribs when she breathes or coughs. Denies any exertional chest pain or shortness of breath. Denies fevers, chills, nausea, vomiting. Related Data Home Medications Medication Instructions Recorded Confirmed losartan 50 mg tablet 100 mg PO DAILY 10/21/19 08/24/23 montelukast 10 mg tablet 10 mg PO DAILY 10/21/19 08/24/23 fenofibrate nanocrystallized 48 mg 48 mg PO DAILY 07/28/20 08/24/23 tablet loratadine 10 mg tablet 10 mg PO DAILY PRN Congestion 07/28/20 08/24/23 celecoxib 200 mg capsule 200 mg PO DAILY 01/22/21 08/24/23 folic acid 1 mg tablet 3 - 4 mg PO DAILY 01/22/21 08/24/23 leflunomide 20 mg tablet 20 mg PO DAILY 01/22/21 08/24/23 spironolactone 50 mg tablet 50 mg PO DAILY 01/22/21 08/24/23 ondansetron HCl 4 mg tablet 4 mg PO BID PRN Nausea 04/21/21 08/24/23 metformin 500 mg tablet,extended 500 mg PO DAILY 10/19/21 08/24/23 release 24 hr tramadol 50 mg tablet 50 mg PO TID PRN Pain 10/19/21 08/24/23 diltiazem HCl 120 mg 120 mg PO DAILY 12/01/21 08/24/23 capsule,extended release 24 hr cholecalciferol (vitamin D3) 50 50 mcg PO DAILY 01/11/22 08/24/23 mcg (2,000 unit) capsule guaifenesin 600 mg tablet, 600 mg PO BID PRN Congestion 01/11/22 08/24/23 extended release 12 hr (Mucinex) hydroxychloroquine 200 mg tablet 200 mg PO DAILY 01/11/22 08/24/23 (Plaquenil) meclizine 25 mg tablet 25 mg PO BID PRN Dizziness 01/11/22 08/24/23 levothyroxine 88 mcg tablet 100 mcg PO DAILY 10/05/22 08/24/23 (Synthroid) oxybutynin chloride 5 mg 10 mg PO QAM 10/05/22 08/24/23 tablet,extended release 24 hr (Ditropan XL) buspirone 5 mg tablet 5 mg PO DAILY 06/28/23 08/24/23 tirzepatide 10 mg/0.5 mL 10 mg subcut WEEKLY 07/26/23 08/24/23 subcutaneous pen injector (Mounjaro) Allergies Allergy/AdvReac Type Severity Reaction Status Date / Time amoxicillin Allergy Severe Hives Verified 11/17/23 11:30 fentanyl Allergy Severe Difficulty Verified 11/17/23 11:30 Breathing peach Allergy Severe Itching Verified 11/17/23 11:30 Sulfa (Sulfonamide Allergy Severe Hives Verified 11/17/23 11:30 Antibiotics) amitriptyline AdvReac Mild Unknown Verified 11/17/23 11:30 Review of Systems Review of Systems: All systems as dictated in [facility] Past Medical History Medical History Acute respiratory failure with hypoxia LISA (acute kidney injury) (~12/2020) Aspergillus Asthma with COPD PFTs 05/10/2020 BPPV (benign paroxysmal positional vertigo) Dry eyes Edema GERD (gastroesophageal reflux disease) Hemoptysis Herpes Hypothyroid IgG deficiency Morbid obesity Necrotizing pneumonia (~01/2021) MSSA YOON (obstructive sleep apnea) With CPAP of 7 Osteoarthritis Pituitary tumor Pneumonia due to COVID-19 virus (~12/2020) Prediabetes Rheumatoid arthritis Screening mammogram, encounter for Staphylococcus aureus pneumonia (~12/2019) SVT (supraventricular tachycardia) Urinary incontinence Vertigo Vitamin D deficiency Surgical History Surgical History H/O lateral meniscus repair of right knee History of arthroscopy of knee (01/02/19) History of bronchoscopy (~12/2020) History of (~1996) History of dilation and curettage 04/20/17 hscope d&c--PMB--weakly proliferative endome
[2023-11-17 13:40] LABS: Influenza A QL RT-PCR Negative (Negative); Influenza B QL RT-PCR Negative (Negative); RSV RNA, RT-PCR Positive (Negative); SARS-CoV-2 RNA PCR Negative (Negative)
== END 2023-11-17 15:34 | disposition home or self-care (01) ==
PROVIDERS: Emergency Medicine; Emergency Provider Physician Assistant; PCP Internal Medicine
DX: J12.1 Respiratory syncytial virus pneumonia (principal); J44.9 Chronic obstructive pulmonary disease, unspecified; E66.01 Morbid (severe) obesity due to excess calories; Z68.36 Body mass index [BMI] 36.0-36.9, adult; E03.9 Hypothyroidism, unspecified; E55.9 Vitamin D deficiency, unspecified; R73.03 Prediabetes; R32 Unspecified urinary incontinence; G47.33 Obstructive sleep apnea (adult) (pediatric); K21.9 Gastro-esophageal reflux disease without esophagitis; M19.90 Unspecified osteoarthritis, unspecified site; M06.9 Rheumatoid arthritis, unspecified; Z86.16 Personal history of COVID-19; Z87.01 Personal history of pneumonia (recurrent); Z87.891 Personal history of nicotine dependence; Z90.49 Acquired absence of other specified parts of digestive tract; Z90.710 Acquired absence of both cervix and uterus; Z79.85 Long-term (current) use of injectable non-insulin antidiabetic drugs; Z79.84 Long term (current) use of oral hypoglycemic drugs; R94.31 Abnormal electrocardiogram [ECG] [EKG]
CPT/HCPCS: 36415; 71046; 80053; 85025; 87637; 93005; 99283

== ENCOUNTER 2023-12-07 11:13 | Outpatient (NON) | payer OTHER, MEDICARE, SELFPAY | END 2023-12-07 11:14 | disposition home or self-care (01) | LOC: ANHGOSHLAB 11:15 | PROVIDERS: PCP Internal Medicine; Visit Provider Otolaryngology | DX: J32.9 Chronic sinusitis, unspecified (principal) | CPT/HCPCS: 87070; 87075; 87077; 87186; 87205 ==

== ENCOUNTER 2024-01-15 11:42 | Outpatient (CLI) | payer OTHER, MEDICARE, SELFPAY ==
[2024-01-15 12:10] LABS: Basophils Absolute Auto 0.1 K/mm3 (0.0-0.1); Basophils Percent Auto 1.1 % (0.2-1.2); Eosinophils Absolute Auto 0.1 K/mm3 (0-0.3); Hematocrit 46.2 % (37.0-47.0); Hemoglobin 14.5 g/dL (12.0-15.0); Immature Granulocyte Absolute 0.01 K/mm3 (0.00-0.031); Immature Granulocyte Percent A 0.2 % (0-0.5); Lymphocytes Absolute Auto 1.36 K/mm3 (0.9-3.2); Lymphocytes Percent Auto 24.4 % (18.3-44.2); Mean Corpuscular HGB Conc 31.4 g/dl (32-36); Mean Corpuscular Hemoglobin 29.5 pg (26-34); Mean Corpuscular Volume 93.9 fl (80-100); Mean Platelet Volume 10.7 fl (7.4-10.4); Monocytes Absolute Auto 0.4 K/mm3 (0.1-0.6); Monocytes Percent Auto 7.3 % (2.6-8.5); Neutrophils Absolute Auto 3.6 K/mm3 (1.3-6.7); Platelet Count Result 191 k/mm3 (150-375); Red Blood Count 4.92 M/mm3 (4.2-5.4); Red Cell Distribution Width 13.3 % (11.5-14.5); White Blood Count 5.6 K/mm3 (4.5-10.0)
[2024-01-15 12:20] LABS: Alanine Aminotransferase 13 U/L (6-35); Albumin Level 4.1 g/dL (3.5-5.1); Alkaline Phosphatase 77 U/L (38-126); Anion Gap 7 mmol/L (8-16); Aspartate Amino Transferase 20 U/L (14-36); Bilirubin,Total 1.1 mg/dL (0.2-1.3); Blood Urea Nitrogen 17 mg/dL (7-17); Calcium 9.5 mg/dL (8.4-10.2); Carbon Dioxide 30 mmol/L (22-30); Chloride 104 mmol/L (98-107); Cholesterol 193 mg/dL (0-200); Estimated Glomerular Filt Rate > 60; Glucose 95 mg/dL (65-110); HDL Direct 78 mg/dL; Potassium 3.9 mmol/L (3.4-5.0); Sodium 141 mmol/L (137-145); Triglycerides 75 mg/dL (<150)
[2024-01-15 12:32] LABS: LDL Cholesterol Direct 96 mg/dL
[2024-01-15 13:43] LABS: Free T4 Free Thyroxine 1.36 ng/mL (0.78-2.19); Vitamin D 25 Hydroxy 73.7 ng/mL
[2024-01-15 14:24] LABS: Creatinine Urine 39.2 mg/dL
[2024-01-15 14:50] LABS: MALB Creatinine Ratio < 15.3 mg/g (0-30); Microalbumin Urine Random < 6.0 mg/L (0-16.7)
== END 2024-01-15 11:43 | disposition home or self-care (01) ==
LOC: ANHLAB 11:47
PROVIDERS: PCP Internal Medicine; Visit Provider Internal Medicine
DX: E78.5 Hyperlipidemia, unspecified (principal); E11.9 Type 2 diabetes mellitus without complications; E55.9 Vitamin D deficiency, unspecified
CPT/HCPCS: 36415; 80053; 80061; 82043; 82306; 84439; 84443; 85025

== ENCOUNTER 2024-02-26 12:09 | Outpatient (CLI) | payer OTHER, MEDICARE, SELFPAY ==
--- NOTE | 2024-02-26 17:15 | WPDSIXMINUTE ---
Six Minute Walk Procedure Procedure Performed Pulmonary Stress Test (6 min walk) Six Minute Walk Six Minute Walk: This is a 6 minute walk test. The test was performed and interpreted in accordance with the 2014 ERS/ATS task force guidelines. Findings: The patient's resting room air oxygen saturation measured by pulse oximetry was 98% and heart rate was 80 bpm. Patient ambulated for 274 meters and oxygen saturation remained 92 to 95%. Heart rate at the end of the study was 109 bpm. The patient did not qualify for supplemental oxygen at rest or with ambulation. There are no prior studies for comparison.
== END 2024-02-26 12:10 | disposition home or self-care (01) ==
LOC: ANHPFT 12:10
PROVIDERS: PCP Internal Medicine; Visit Provider Internal Medicine Pulmonary Disease
DX: J45.909 Unspecified asthma, uncomplicated (principal)
CPT/HCPCS: 94618

== ENCOUNTER 2024-05-20 09:59 | Outpatient (CLI) | payer OTHER, MEDICARE, SELFPAY ==
[2024-05-20 10:37] LABS: Basophils Absolute Auto 0.1 K/mm3 (0.0-0.1); Basophils Percent Auto 1.5 % (0.2-1.2); Eosinophils Absolute Auto 0.4 K/mm3 (0-0.3); Eosinophils Percent Auto 6.1 % (0-4.4); Hematocrit 41.7 % (37.0-47.0); Hemoglobin 13.1 g/dL (12.0-15.0); Lymphocytes Absolute Auto 1.68 K/mm3 (0.9-3.2); Lymphocytes Percent Auto 28.5 % (18.3-44.2); Mean Corpuscular HGB Conc 31.4 g/dl (32-36); Mean Corpuscular Hemoglobin 28.8 pg (26-34); Mean Corpuscular Volume 91.6 fl (80-100); Mean Platelet Volume 11.2 fl (7.4-10.4); Monocytes Absolute Auto 0.5 K/mm3 (0.1-0.6); Neutrophils Absolute Auto 3.2 K/mm3 (1.3-6.7); Neutrophils Percent Auto 54.9 % (45.5-73.1); Platelet Count Result 218 k/mm3 (150-375); Red Blood Count 4.55 M/mm3 (4.2-5.4); White Blood Count 5.9 K/mm3 (4.5-10.0)
[2024-05-20 10:50] LABS: Alanine Aminotransferase 11 U/L (6-35); Albumin Level 4.3 g/dL (3.5-5.1); Alkaline Phosphatase 91 U/L (38-126); Anion Gap 8 mmol/L (4-12); Aspartate Amino Transferase 18 U/L (14-36); Bilirubin,Total 0.7 mg/dL (0.2-1.3); Blood Urea Nitrogen 16 mg/dL (7-17); Calcium 9.2 mg/dL (8.4-10.2); Carbon Dioxide 28 mmol/L (22-30); Chloride 102 mmol/L (98-107); Cholesterol 152 mg/dL (0-200); Estimated Glomerular Filt Rate > 60; Glucose 81 mg/dL (65-110); HDL Direct 67 mg/dL; Potassium 3.8 mmol/L (3.4-5.0); Sodium 138 mmol/L (137-145); Triglycerides 126 mg/dL (<150)
[2024-05-20 11:02] LABS: LDL Cholesterol Direct 71 mg/dL
[2024-05-20 11:06] LABS: Free T4 Free Thyroxine 1.45 ng/mL (0.78-2.19); Vitamin D 25 Hydroxy 66.9 ng/mL
[2024-05-20 11:49] LABS: Microalbumin Urine Random < 6.0 mg/L (0-16.7)
[2024-05-20 11:50] LABS: MALB Creatinine Ratio < 20.0 mg/g (0-30)
== END 2024-05-20 10:00 | disposition home or self-care (01) ==
LOC: ANHLAB 10:03
PROVIDERS: PCP Internal Medicine; Visit Provider Internal Medicine
DX: E78.5 Hyperlipidemia, unspecified (principal); E11.9 Type 2 diabetes mellitus without complications; E55.9 Vitamin D deficiency, unspecified
CPT/HCPCS: 36415; 80053; 80061; 82043; 82306; 83036; 84439; 84443; 85025

== ENCOUNTER 2024-05-29 22:08 | Outpatient (NON) | payer OTHER, MEDICARE, SELFPAY | END 2024-05-29 22:09 | disposition home or self-care (01) | LOC: ANHLAB 23:02 | PROVIDERS: PCP Internal Medicine; Visit Provider Otolaryngology | DX: J32.9 Chronic sinusitis, unspecified (principal) | CPT/HCPCS: 87070; 87075; 87077; 87181; 87205 ==

== ENCOUNTER 2024-06-13 07:42 | Outpatient (CLI) | payer OTHER, MEDICARE, SELFPAY ==
[2024-06-13 08:17] LABS: Basophils Absolute Auto 0.1 K/mm3 (0.0-0.1); Basophils Percent Auto 1.6 % (0.2-1.2); Eosinophils Absolute Auto 0.3 K/mm3 (0-0.3); Hematocrit 42.5 % (37.0-47.0); Hemoglobin 13.5 g/dL (12.0-15.0); Immature Granulocyte Absolute 0.01 K/mm3 (0.00-0.031); Immature Granulocyte Percent A 0.2 % (0-0.5); Lymphocytes Absolute Auto 1.33 K/mm3 (0.9-3.2); Lymphocytes Percent Auto 30.1 % (18.3-44.2); Mean Corpuscular HGB Conc 31.8 g/dl (32-36); Mean Corpuscular Hemoglobin 28.6 pg (26-34); Mean Platelet Volume 11.2 fl (7.4-10.4); Monocytes Absolute Auto 0.5 K/mm3 (0.1-0.6); Monocytes Percent Auto 11.3 % (2.6-8.5); Neutrophils Absolute Auto 2.2 K/mm3 (1.3-6.7); Neutrophils Percent Auto 49.8 % (45.5-73.1); Platelet Count Result 194 k/mm3 (150-375); Red Blood Count 4.72 M/mm3 (4.2-5.4); Red Cell Distribution Width 13.3 % (11.5-14.5); White Blood Count 4.4 K/mm3 (4.5-10.0)
[2024-06-13 08:35] LABS: Alanine Aminotransferase 16 U/L (6-35); Alkaline Phosphatase 83 U/L (38-126); Anion Gap 6 mmol/L (4-12); Aspartate Amino Transferase 23 U/L (14-36); Bilirubin,Total 0.7 mg/dL (0.2-1.3); Blood Urea Nitrogen 15 mg/dL (7-17); Calcium 9.3 mg/dL (8.4-10.2); Carbon Dioxide 29 mmol/L (22-30); Chloride 102 mmol/L (98-107); Cholesterol 152 mg/dL (0-200); Estimated Glomerular Filt Rate 56; Glucose 83 mg/dL (65-110); HDL Direct 67 mg/dL; Magnesium 1.8 mg/dL (1.6-2.3); Potassium 4.5 mmol/L (3.4-5.0); Sodium 137 mmol/L (137-145); Triglycerides 106 mg/dL (<150)
[2024-06-13 08:46] LABS: LDL Cholesterol Direct 54 mg/dL
[2024-06-13 09:08] LABS: Iron 79 ug/dL (37-170)
[2024-06-13 09:17] LABS: Percent Iron Saturation 23 % (20-50)
[2024-06-13 09:24] LABS: Hemoglobin A1C 5.2 % (<5.7)
[2024-06-13 09:27] LABS: Free T4 Free Thyroxine 1.39 ng/mL (0.78-2.19)
[2024-06-13 09:58] LABS: Vitamin D 25 Hydroxy 70.2 ng/mL
[2024-06-14 07:13] LABS: DHEA-Sulfate 39 mcg/dL (9-118); Triiodothyronine T3 Free 3.1 pg/mL (2.3-4.2)
[2024-06-20 13:14] LABS: Adrenocorticotropic Hormone 15 pg/mL (6-50)
== END 2024-06-13 07:43 | disposition home or self-care (01) ==
PROVIDERS: PCP Internal Medicine; Visit Provider Internal Medicine Endocrinology, Diabetes & Metabolism
DX: E11.65 Type 2 diabetes mellitus with hyperglycemia (principal); E03.9 Hypothyroidism, unspecified; R53.83 Other fatigue; E55.9 Vitamin D deficiency, unspecified; E78.5 Hyperlipidemia, unspecified; E34.9 Endocrine disorder, unspecified
CPT/HCPCS: 36415; 80053; 80061; 82024; 82306; 82533; 82607; 82627; 83036; 83540; 83550; 83735; 84439; 84443; 84481; 85025

== ENCOUNTER 2024-06-14 07:15 | Outpatient (CLI) | payer OTHER, MEDICARE, SELFPAY ==
[2024-06-14 08:13] LABS: Cortisol Baseline 1.06 ug/dL
[2024-06-27 13:08] LABS: Dexamethasone 287 ng/dL
== END 2024-06-14 07:16 | disposition home or self-care (01) ==
PROVIDERS: PCP Internal Medicine; Visit Provider Internal Medicine Endocrinology, Diabetes & Metabolism
DX: R63.5 Abnormal weight gain (principal); E34.9 Endocrine disorder, unspecified
CPT/HCPCS: 36415; 80299; 82533

== ENCOUNTER 2024-07-29 09:55 | Outpatient (CLI) | payer OTHER, MEDICARE, SELFPAY ==
--- NOTE | ~2024-07-29 | MMUS_ITS ---
EXAMINATION: MM diagnostic evelina BI w mary, US breast RT limited HISTORY: Right breast pain TECHNIQUE: Additional 3-D tomosynthesis images of the breasts were performed and synthetic 2-D images were generated. CAD analysis was submitted and interpreted. High resolution Limited right breast ult rasound was performed. COMPARISON: Comparison to multiple prior studies sequentially, with oldest reviewed study dated 09/30. BREAST PARENCHYMAL COMPOSITION: Not Dense: The breasts are almost entirely fatty. FINDINGS: MAMMOGRAPHIC FINDINGS: There are no suspicious masses, calcifications or architectural distortion in either breast to sugges t malignancy. ULTRASOUND: Limited right breast ultrasound: Normal heterogeneous echotexture without focal solid or cystic mass. IMPRESSION: 1. No evidence for malignancy in either breast. 2. Routine yearly screening mammogram and regular clinical breast examination are recommended. BI-RADS Category 1: Negative Reviewed, dictated and finalized at location B. IMPRESSION: 1. No evidence for malignancy in either breast. 2. Routine yearly screening mammogram and regular clinical breast examination a re recommended. BI-RADS Category 1: Negative
== END 2024-07-29 09:56 | disposition home or self-care (01) ==
LOC: ANHIMG 09:58
PROVIDERS: PCP Internal Medicine; Referring Provider Obstetrics & Gynecology; Visit Provider Internal Medicine
DX: N64.4 Mastodynia (principal); Z13.820 Encounter for screening for osteoporosis
CPT/HCPCS: 76642; 77062; 77066; G0279

== ENCOUNTER 2024-09-04 08:49 | Outpatient (CLI) | payer OTHER, MEDICARE, SELFPAY ==
[2024-09-04 09:38] LABS: Basophils Absolute Auto 0.1 K/mm3 (0.0-0.1); Basophils Percent Auto 1.6 % (0.2-1.2); Eosinophils Absolute Auto 0.2 K/mm3 (0-0.3); Eosinophils Percent Auto 4.5 % (0-4.4); Hematocrit 42.1 % (37.0-47.0); Hemoglobin 13.7 g/dL (12.0-15.0); Immature Granulocyte Absolute 0.01 K/mm3 (0.00-0.031); Immature Granulocyte Percent A 0.2 % (0-0.5); Lymphocytes Absolute Auto 1.46 K/mm3 (0.9-3.2); Lymphocytes Percent Auto 32.6 % (18.3-44.2); Mean Corpuscular HGB Conc 32.5 g/dl (32-36); Mean Corpuscular Hemoglobin 29.5 pg (26-34); Mean Corpuscular Volume 90.5 fl (80-100); Mean Platelet Volume 11.2 fl (7.4-10.4); Monocytes Absolute Auto 0.5 K/mm3 (0.1-0.6); Monocytes Percent Auto 11.2 % (2.6-8.5); Neutrophils Absolute Auto 2.2 K/mm3 (1.3-6.7); Neutrophils Percent Auto 49.9 % (45.5-73.1); Platelet Count Result 213 k/mm3 (150-375); Red Blood Count 4.65 M/mm3 (4.2-5.4); Red Cell Distribution Width 14.5 % (11.5-14.5); White Blood Count 4.5 K/mm3 (4.5-10.0)
[2024-09-04 09:49] LABS: Hemoglobin A1C 4.9 % (<5.7)
[2024-09-04 10:00] LABS: Alanine Aminotransferase 18 U/L (6-35); Alkaline Phosphatase 89 U/L (38-126); Anion Gap 4 mmol/L (4-12); Aspartate Amino Transferase 23 U/L (14-36); Bilirubin,Total 0.9 mg/dL (0.2-1.3); Blood Urea Nitrogen 11 mg/dL (7-17); Calcium 9.3 mg/dL (8.4-10.2); Carbon Dioxide 29 mmol/L (22-30); Chloride 104 mmol/L (98-107); Cholesterol 169 mg/dL (0-200); Estimated Glomerular Filt Rate > 60; Glucose 84 mg/dL (65-110); HDL Direct 72 mg/dL; Potassium 4.6 mmol/L (3.4-5.0); Sodium 137 mmol/L (137-145); Triglycerides 117 mg/dL (<150)
[2024-09-04 10:06] LABS: Creatinine Urine 35.1 mg/dL
[2024-09-04 10:11] LABS: LDL Cholesterol Direct 71 mg/dL
[2024-09-04 10:37] LABS: Free T4 Free Thyroxine 1.37 ng/mL (0.78-2.19); Vitamin D 25 Hydroxy 57.7 ng/mL
[2024-09-04 10:41] LABS: Microalbumin Urine Random < 6.0 mg/L (0-16.7)
[2024-09-04 10:42] LABS: MALB Creatinine Ratio < 17.1 mg/g (0-30)
== END 2024-09-04 08:50 | disposition home or self-care (01) ==
PROVIDERS: PCP Internal Medicine; Visit Provider Internal Medicine
DX: E78.5 Hyperlipidemia, unspecified (principal); E11.9 Type 2 diabetes mellitus without complications; E55.9 Vitamin D deficiency, unspecified
CPT/HCPCS: 36415; 80053; 80061; 82043; 82306; 83036; 84439; 84443; 85025

== ENCOUNTER 2024-10-09 01:27 | Day surgery (SDC) | payer OTHER, MEDICARE, SELFPAY ==
[2024-09-18 12:25] VITALS: BMI 36.1
[2024-10-09 09:57] VITALS: BP 136/86; PULSE 82; RESP 14; TEMP 36.4; O2SAT 99
[2024-10-09 09:57] LABS: Glucose Point of Care 86 mg/dl (65-105)
[2024-10-09] MEDS: LACTATED RINGERS 1,000 ML 150 ML IV CONT (10:03)
--- NOTE | 2024-10-09 10:22 | P.PNAN_ITS ---
Anes - Initial Pre Proc Eval Procedure: Operation Date: 10/09/24 11:00 Proposed Procedures p Screening Colonoscopy - Cain Capellan MD Date/Time: 10/09/24 10:22 Surgeon: Cain Capellan MD Pre Op Diagnosis: Neoplasm screening Patient Data Age: 59 Gender: F Height: 1.6 m Weight: 90.6 kg Last Vital Signs Temp 36.4 C L 10/09/24 09:57 Pulse 82 10/09/24 09:57 Resp 14 10/09/24 09:57 BP 136/86 10/09/24 09:57 Pulse Ox 99 10/09/24 09:57 O2 Del Method Room Air 10/09/24 09:57 Allergies Allergy/AdvReac Type Severity Reaction Status Date / Time amoxicillin Allergy Severe Hives Verified 10/09/24 09:42 fentanyl Allergy Severe Difficulty Verified 10/09/24 09:42 Breathing peach Allergy Severe Itching Verified 10/09/24 09:42 Sulfa (Sulfonamide Allergy Severe Hives Verified 10/09/24 09:42 Antibiotics) amitriptyline AdvReac Mild Unknown Verified 10/09/24 09:42 Home Medications ?Medication ?Instructions ?Recorded ?Confirmed ?Type losartan 50 mg tablet 100 mg PO DAILY 10/21/19 10/09/24 History montelukast 10 mg tablet 10 mg PO DAILY 10/21/19 10/09/24 History loratadine 10 mg tablet 10 mg PO DAILY Congestion 07/28/20 10/09/24 History celecoxib 200 mg capsule 200 mg PO BID 01/22/21 10/09/24 History leflunomide 20 mg tablet 20 mg PO DAILY 01/22/21 10/09/24 History spironolactone 50 mg tablet 50 mg PO DAILY 01/22/21 10/09/24 History ondansetron HCl 4 mg tablet 4 mg PO BID PRN Nausea 04/21/21 09/18/24 History metformin 500 mg tablet,extended 500 mg PO BID 10/19/21 10/09/24 History release 24 hr diltiazem HCl 120 mg 120 mg PO DAILY 12/01/21 10/09/24 History capsule,extended release 24 hr cholecalciferol (vitamin D3) 50 50 mcg PO DAILY 01/11/22 10/09/24 History mcg (2,000 unit) capsule hydroxychloroquine 200 mg tablet 400 mg PO DAILY 01/11/22 10/09/24 History (Plaquenil) oxybutynin chloride 5 mg 10 mg PO QAM 10/05/22 10/09/24 History tablet,extended release 24 hr (Ditropan XL) buspirone 5 mg tablet 5 mg PO BID 06/28/23 10/09/24 History tirzepatide 10 mg/0.5 mL 12 mg subcut WEEKLY 07/26/23 10/09/24 History subcutaneous pen injector (Mounjaro) mupirocin 2 % topical ointment See Rx Instructions topical 08/23/23 09/18/24 Rx .COMPLEX #22 grams albuterol sulfate 90 mcg/actuation See Rx Instructions .Route 11/28/23 10/09/24 Rx aerosol inhaler .COMPLEX #8.5 grams golimumab 50 mg/0.5 mL See Rx Instructions .Route .COMPLEX 01/16/24 09/18/24 History subcutaneous pen injector (Simponi) immune glob G 40 gram/400 IV 01/16/24 07/31/24 History mL(10%)-gly-IgA ave 46 mcg/mL injection soln (Gamunex-C) levothyroxine 75 mcg tablet 75 mcg PO DAILY 01/16/24 10/09/24 History (Unithroid) pravastatin 20 mg tablet 20 mg PO DAILY 01/16/24 10/09/24 History prednisone 10 mg tablet 2.5 mg PO DAILY PRN Pain 01/16/24 10/09/24 History sumatriptan succinate 25 mg tablet See Rx Instructions PO .COMPLEX 01/16/24 10/09/24 History PRN headaches tiotropium bromide 2.5 2 puff inhalation BID 01/16/24 10/09/24 History mcg/actuation mist for inhalation (Spiriva Respimat) triamcinolone acetonide 0.1 % 1 applic topical BID 01/16/24 10/09/24 History topical cream ciprofloxacin See Rx Instructions .Route .COMPLEX 06/13/24 10/09/24 History fluticasone 500 mcg-salmeterol 50 1 inh inhalation BID #60 blisters 07/20/24 10/09/24 Rx mcg/dose blistr powdr for inhalation cyanocobalamin (vitamin B-12) 100 1,000 mcg WEEKLY 07/31/24 09/18/24 History mcg/mL injection solution estradiol 0.01% (0.1 mg/gram) 1 g vaginal 3XW #42.5 grams 07/31/24 10/09/24 Rx vaginal cream gabapentin 100 mg capsule 1 - 3 mg PO DAILY PRN Pain 09/18/24 10/09/24 History liothyronine 5 mcg tablet 5 mcg PO HS 09/18/24 10/09/24 History omeprazole 20 mg capsule,delayed 40 mg PO DAILY Acid Reflux 09/18/24 10/09/24 History release Laboratory Tests 10/09/24 09:52 POC Capillary Glucose 86 mg/dl (65-105) Patient hx anesthesia problems: none Family hx anesthesia problems: none Results Review: All pre-operative results and documents have been reviewed as part of the pre- operative evaluation. [facility]LY [facility] Past Medical History Medical History Abdominal apron (04/09/24) removed Screening mammogram, encounter for Osteoarthritis Edema Vertigo Dry eyes Herpes Urinary incontinence Pituitary tumor BPPV (benign paroxysmal positional vertigo) GERD (gastroesophageal reflux disease) Staphylococcus aureus pneumonia (~12/2019) Necrotizing pneumonia (~01/2021) MSSA Aspergillus Hemoptysis LISA (acute kidney injury) (~12/2020) Acute respiratory failure with hypoxia Pneumonia due to COVID-19 virus (~12/2020) IgG deficiency Morbid obesity Rheumatoid arthritis YOON (obstructive sleep apnea) With CPAP of 7 Asthma with COPD PFTs 05/10/2020 SVT (supraventricular tachycardia) Prediabetes Hypothyroid Vitamin D deficiency Surgical History Surgical History History of bronchoscopy (~12/2020) History of removal of cyst cysts removal from right side of face History of sinus surgery (07/07/23) History of tubal ligation History of eye surgery muscle repair in eye History of hand surgery cyst removed from right hand History of robot-assisted laparoscopic hysterectomy 10/17/19 RA TLH w/BSO for PMB History of arthroscopy of knee (01/02/19) History of dilation and curettage 04/20/17 hscope d&c--PMB--weakly proliferative endometrium 09/19/19 hscope d&c--PMB--dysmenorrhea--benign History of incision and drainage 2013--abscess of left upper thigh History of (~1996) Hx of cholecystectomy H/O lateral meniscus repair of right knee History of tonsillectomy Family History Family History Father Thyroid cancer Lung cancer Carcinoma of colon Hypertension Myocardial infarct Mother Brain cancer Colitis Depression Lung cancer COPD (chronic obstructive pulmonary disease) Diabetes mellitus Hypertension CAD (coronary artery disease) Social History Social History (Updated 07/31/24 @ 10:20 by Melissa Bhakta [facility]) Social History: Patient lives at home with her of 27 years, Rodolfo. Her 29-year-old son and daughter in law also live with them. 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 Primary care provider: Dr. Dirk Solis Code status: Full code Surrogate decision maker: Smoking packs per day: 1 Smoking cigarettes per day: 20.0 Years smoked: 10 Smoking pack-years: 10.00 Smoking status: Former smoker Tobacco type: cigarettes Second hand tobacco smoke exposure: Yes Alcohol intake: never Alcohol use details: rarely Substance use: never Substance use type: does not use Do You Feel Safe in your Home?: Yes Lack of Transportation: YES Lack of Food: Never True Current Housing: Decline to Answer Concerned About Future Housing: Decline to Answer Difficulty Paying Gas/Electric Bills: Decline to Answer Difficulty Paying for Meds: Decline to Answer Currently Unemployed: Decline to Answer Education: Decline to Answer Difficulty w/ Childcare or Family Care: Decline to Answer Living arrangements: with family Additional living arrangements comments: Occupation/Education: unemployed Additional occupation/education comments: disability Gender identity (if verbalized by the patient): Female Sexual Orientation (if Verbalized by the Patient): Straight or Heterosexual Spiritual care concerns: No Agree to blood products: Yes Anes - Eval Final PreProcedure Day of Procedure 10/09/24 10:22 Patient weight: obese Heart: regular rate and rhythm Lungs: decreased breath sounds Airway: Mallampati scale class 1 Neurological: alert and oriented Last oral intake: >/= 8 hours ASA classification: III Emergent: no Anesthetic plan: proceed Anesthesia type and monitoring: general GIVS and standard monitoring Results Review: All pre-operative results and documents have been reviewed as part of the pre- operative evaluation. Informed Consent: The patient's anesthetic plan and its attendant risks and benefits were discussed with the patient/family/POA. Questions were solicited and answers provided to the satisfaction of the patient/family/POA.
--- NOTE | 2024-10-09 11:03 | P.HP_ITS ---
History of Present Illness History of Present Illness Consent: Risks, benefits, and alternatives have been discussed and questions answered. Patient agrees to proceed with procedure. Chief complaint: Neoplasm screening Narrative: Karen Em is a 59 year old female with colon polyp 6 years ago Review of Systems Review of Systems: All systems reviewed & are unremarkable except as noted in HPI and below PMFSH Past Medical History Medical History (Updated 10/09/24 @ 11:04 by Cain Capellan MD) Colon cancer screening Abdominal apron (04/09/24) removed Screening mammogram, encounter for Osteoarthritis Edema Vertigo Dry eyes Herpes Urinary incontinence Pituitary tumor BPPV (benign paroxysmal positional vertigo) GERD (gastroesophageal reflux disease) Staphylococcus aureus pneumonia (~12/2019) Necrotizing pneumonia (~01/2021) MSSA Aspergillus Hemoptysis LISA (acute kidney injury) (~12/2020) Acute respiratory failure with hypoxia Pneumonia due to COVID-19 virus (~12/2020) IgG deficiency Morbid obesity Rheumatoid arthritis YOON (obstructive sleep apnea) With CPAP of 7 Asthma with COPD PFTs 05/10/2020 SVT (supraventricular tachycardia) Prediabetes Hypothyroid Vitamin D deficiency Surgical History Surgical History History of bronchoscopy (~12/2020) History of removal of cyst cysts removal from right side of face History of sinus surgery (07/07/23) History of tubal ligation History of eye surgery muscle repair in eye History of hand surgery cyst removed from right hand History of robot-assisted laparoscopic hysterectomy 10/17/19 RA TLH w/BSO for PMB History of arthroscopy of knee (01/02/19) History of dilation and curettage 04/20/17 hscope d&c--PMB--weakly proliferative endometrium 09/19/19 hscope d&c--PMB--dysmenorrhea--benign History of incision and drainage 2013--abscess of left upper thigh History of (~1996) Hx of cholecystectomy H/O lateral meniscus repair of right knee History of tonsillectomy Family History Family History Father Thyroid cancer Lung cancer Carcinoma of colon Hypertension Myocardial infarct Mother Brain cancer Colitis Depression Lung cancer COPD (chronic obstructive pulmonary disease) Diabetes mellitus Hypertension CAD (coronary artery disease) Social History Social History (Updated 07/31/24 @ 10:20 by Melissa Bhakta [facility]) Social History: Patient lives at home with her of 27 years, Rodolfo. Her 29-year-old son and daughter in law also live with them. 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 Primary care provider: Dr. Dirk Solis Code status: Full code Surrogate decision maker: Smoking packs per day: 1 Smoking cigarettes per day: 20.0 Years smoked: 10 Smoking pack-years: 10.00 Smoking status: Former smoker Tobacco type: cigarettes Second hand tobacco smoke exposure: Yes Alcohol intake: never Alcohol use details: rarely Substance use: never Substance use type: does not use Do You Feel Safe in your Home?: Yes Lack of Transportation: YES Lack of Food: Never True Current Housing: Decline to Answer Concerned About Future Housing: Decline to Answer Difficulty Paying Gas/Electric Bills: Decline to Answer Difficulty Paying for Meds: Decline to Answer Currently Unemployed: Decline to Answer Education: Decline to Answer Difficulty w/ Childcare or Family Care: Decline to Answer Living arrangements: with family Additional living arrangements comments: Occupation/Education: unemployed Additional occupation/education comments: disability Gender identity (if verbalized by the patient): Female Sexual Orientation (if Verbalized by the Patient): Straight or Heterosexual Spiritual care concerns: No Agree to blood products: Yes Meds Home Medications and Allergies Home Medications ?Medication ?Instructions ?Recorded ?Confirmed ?Type losartan 50 mg tablet 100 mg PO DAILY 10/21/19 10/09/24 History montelukast 10 mg tablet 10 mg PO DAILY 10/21/19 10/09/24 History loratadine 10 mg tablet 10 mg PO DAILY Congestion 07/28/20 10/09/24 History celecoxib 200 mg capsule 200 mg PO BID 01/22/21 10/09/24 History leflunomide 20 mg tablet 20 mg PO DAILY 01/22/21 10/09/24 History spironolactone 50 mg tablet 50 mg PO DAILY 01/22/21 10/09/24 History ondansetron HCl 4 mg tablet 4 mg PO BID PRN Nausea 04/21/21 09/18/24 History metformin 500 mg tablet,extended 500 mg PO BID 10/19/21 10/09/24 History release 24 hr diltiazem HCl 120 mg 120 mg PO DAILY 12/01/21 10/09/24 History capsule,extended release 24 hr cholecalciferol (vitamin D3) 50 50 mcg PO DAILY 01/11/22 10/09/24 History mcg (2,000 unit) capsule hydroxychloroquine 200 mg tablet 400 mg PO DAILY 01/11/22 10/09/24 History (Plaquenil) oxybutynin chloride 5 mg 10 mg PO QAM 10/05/22 10/09/24 History tablet,extended release 24 hr (Ditropan XL) buspirone 5 mg tablet 5 mg PO BID 06/28/23 10/09/24 History tirzepatide 10 mg/0.5 mL 12 mg subcut WEEKLY 07/26/23 10/09/24 History subcutaneous pen injector (Celestineunzayda) mupirocin 2 % topical ointment See Rx Instructions topical 08/23/23 09/18/24 Rx .COMPLEX #22 grams albuterol sulfate 90 mcg/actuation See Rx Instructions .Route 11/28/23 10/09/24 Rx aerosol inhaler .COMPLEX #8.5 grams golimumab 50 mg/0.5 mL See Rx Instructions .Route .COMPLEX 01/16/24 09/18/24 History subcutaneous pen injector (Simponi) immune glob G 40 gram/400 IV 01/16/24 07/31/24 History mL(10%)-gly-IgA ave 46 mcg/mL injection soln (Gamunex-C) levothyroxine 75 mcg tablet 75 mcg PO DAILY 01/16/24 10/09/24 History (Unithroid) pravastatin 20 mg tablet 20 mg PO DAILY 01/16/24 10/09/24 History prednisone 10 mg tablet 2.5 mg PO DAILY PRN Pain 01/16/24 10/09/24 History sumatriptan succinate 25 mg tablet See Rx Instructions PO .COMPLEX 01/16/24 10/09/24 History PRN headaches tiotropium bromide 2.5 2 puff inhalation BID 01/16/24 10/09/24 History mcg/actuation mist for inhalation (Spiriva Respimat) triamcinolone acetonide 0.1 % 1 applic topical BID 01/16/24 10/09/24 History topical cream ciprofloxacin See Rx Instructions .Route .COMPLEX 06/13/24 10/09/24 History fluticasone 500 mcg-salmeterol 50 1 inh inhalation BID #60 blisters 07/20/24 10/09/24 Rx mcg/dose blistr powdr for inhalation cyanocobalamin (vitamin B-12) 100 1,000 mcg WEEKLY 07/31/24 09/18/24 History mcg/mL injection solution estradiol 0.01% (0.1 mg/gram) 1 g vaginal 3XW #42.5 grams 07/31/24 10/09/24 Rx vaginal cream gabapentin 100 mg capsule 1 - 3 mg PO DAILY PRN Pain 09/18/24 10/09/24 History liothyronine 5 mcg tablet 5 mcg PO HS 09/18/24 10/09/24 History omeprazole 20 mg capsule,delayed 40 mg PO DAILY Acid Reflux 09/18/24 10/09/24 History release Allergies Allergy/AdvReac Type Severity Reaction Status Date / Time amoxicillin Allergy Severe Hives Verified 10/09/24 09:42 fentanyl Allergy Severe Difficulty Verified 10/09/24 09:42 Breathing peach Allergy Severe Itching Verified 10/09/24 09:42 Sulfa (Sulfonamide Allergy Severe Hives Verified 10/09/24 09:42 Antibiotics) amitriptyline AdvReac Mild Unknown Verified 10/09/24 09:42 Vital Signs Vital Signs - 24 hr 10/09/24 09:57 Temperature 97.5 F L Pulse Rate 82 Respiratory Rate 14 Blood Pressure 136/86 Pulse Oximetry 99 Oxygen Delivery Room Air Exam Const: General: comfortable and no acute distress HENMT: Face/Nose/Sinus: Normal nares present Eyes: General: appearance normal, both eyes and all related structures Neck: Neck: no JVD Resp: Auscultation: clear to auscultation bilaterally Cardio: Rate: regular rate Rhythm: regular rhythm GI: Inspection: non-distended GI Palp: Yes Soft to palpation Skin: General skin exam: normal color Neuro: General: gait normal Speech: normal speech Extrem: General: normal to inspection Psych: Mental Status: mental status grossly normal Assessment and Plan Assessment and plan (1) Colon cancer screening: Code(s): Z12.11 - Encounter for screening for malignant neoplasm of colon Status: Acute Assessment and Plan: colonoscopy
[2024-10-09 11:22] VITALS: BP 119/69; PULSE 74; RESP 19; O2SAT 99
[2024-10-09 11:32] VITALS: BP 114/69; PULSE 76; RESP 19; O2SAT 100
[2024-10-09 11:42] VITALS: BP 129/77; PULSE 72; RESP 20; O2SAT 100
== END 2024-10-09 11:56 | disposition home or self-care (01) ==
PROVIDERS: PCP Internal Medicine; Visit Provider Internal Medicine Gastroenterology
PROC: 0DJD8ZZ Inspection of Lower Intestinal Tract, Via Natural or Artificial Opening Endoscopic (ICD-10-PCS; CPT 45378; principal; 2024-10-09 11:00)
DX: Z12.11 Encounter for screening for malignant neoplasm of colon (principal); K64.8 Other hemorrhoids; K57.30 Diverticulosis of large intestine without perforation or abscess without bleeding; R73.03 Prediabetes; E03.9 Hypothyroidism, unspecified; E55.9 Vitamin D deficiency, unspecified; G47.33 Obstructive sleep apnea (adult) (pediatric); R32 Unspecified urinary incontinence; K21.9 Gastro-esophageal reflux disease without esophagitis; J96.01 Acute respiratory failure with hypoxia; D80.3 Selective deficiency of immunoglobulin G [IgG] subclasses; J44.9 Chronic obstructive pulmonary disease, unspecified; M19.90 Unspecified osteoarthritis, unspecified site; M06.9 Rheumatoid arthritis, unspecified; I47.10 Supraventricular tachycardia, unspecified; E66.9 Obesity, unspecified; Z68.35 Body mass index [BMI] 35.0-35.9, adult; Z79.84 Long term (current) use of oral hypoglycemic drugs; Z79.85 Long-term (current) use of injectable non-insulin antidiabetic drugs; Z79.51 Long term (current) use of inhaled steroids; Z79.620 Long term (current) use of immunosuppressive biologic; Z79.52 Long term (current) use of systemic steroids; Z99.89 Dependence on other enabling machines and devices; Z98.890 Other specified postprocedural states; Z98.51 Tubal ligation status; Z90.49 Acquired absence of other specified parts of digestive tract; Z86.0100 Personal history of colon polyps, unspecified; Z87.891 Personal history of nicotine dependence; Z80.8 Family history of malignant neoplasm of other organs or systems; Z80.0 Family history of malignant neoplasm of digestive organs; Z80.1 Family history of malignant neoplasm of trachea, bronchus and lung; Z82.49 Family history of ischemic heart disease and other diseases of the circulatory system
CPT/HCPCS: 45378; 82948; J7120

== ENCOUNTER 2024-11-02 11:44 | Outpatient (CLI) | payer OTHER, MEDICARE, SELFPAY ==
[2024-11-02 12:10] LABS: Basophils Absolute Auto 0.1 K/mm3 (0.0-0.1); Basophils Percent Auto 1.4 % (0.2-1.2); Eosinophils Absolute Auto 0.3 K/mm3 (0-0.3); Hematocrit 41.9 % (37.0-47.0); Hemoglobin 13.3 g/dL (12.0-15.0); Immature Granulocyte Absolute 0.01 K/mm3 (0.00-0.031); Immature Granulocyte Percent A 0.2 % (0-0.5); Lymphocytes Absolute Auto 1.92 K/mm3 (0.9-3.2); Lymphocytes Percent Auto 38.2 % (18.3-44.2); Mean Corpuscular HGB Conc 31.7 g/dl (32-36); Mean Corpuscular Hemoglobin 28.9 pg (26-34); Mean Corpuscular Volume 90.9 fl (80-100); Mean Platelet Volume 10.3 fl (7.4-10.4); Monocytes Absolute Auto 0.5 K/mm3 (0.1-0.6); Monocytes Percent Auto 9.7 % (2.6-8.5); Neutrophils Absolute Auto 2.3 K/mm3 (1.3-6.7); Neutrophils Percent Auto 45.5 % (45.5-73.1); Platelet Count Result 250 k/mm3 (150-375); Red Blood Count 4.61 M/mm3 (4.2-5.4); Red Cell Distribution Width 13.2 % (11.5-14.5)
[2024-11-02 12:30] LABS: Alanine Aminotransferase 15 U/L (6-35); Albumin Level 4.1 g/dL (3.5-5.1); Alkaline Phosphatase 79 U/L (38-126); Anion Gap 0 mmol/L (4-12); Aspartate Amino Transferase 19 U/L (14-36); Bilirubin,Total 1.1 mg/dL (0.2-1.3); Blood Urea Nitrogen 10 mg/dL (7-17); Calcium 9.3 mg/dL (8.4-10.2); Carbon Dioxide 33 mmol/L (22-30); Chloride 105 mmol/L (98-107); Cholesterol 197 mg/dL (0-200); Estimated Glomerular Filt Rate > 60; Glucose 85 mg/dL (65-110); HDL Direct 69 mg/dL; Potassium 3.9 mmol/L (3.4-5.0); Sodium 138 mmol/L (137-145); Triglycerides 115 mg/dL (<150)
[2024-11-02 12:32] LABS: Creatinine Urine 31.2 mg/dL
[2024-11-02 12:37] LABS: MALB Creatinine Ratio < 19.2 mg/g (0-30); Microalbumin Urine Random < 6.0 mg/L (0-16.7)
[2024-11-02 12:41] LABS: LDL Cholesterol Direct 89 mg/dL
[2024-11-02 12:56] LABS: Free T4 Free Thyroxine 1.58 ng/dL (0.78-2.19)
[2024-11-05 17:13] LABS: Progesterone <0.5 ng/mL
[2024-11-06 05:49] LABS: Triiodothyronine T3 Free 3.1 pg/mL (2.3-4.2)
== END 2024-11-02 11:45 | disposition home or self-care (01) ==
PROVIDERS: PCP Internal Medicine; Visit Provider Internal Medicine Endocrinology, Diabetes & Metabolism
DX: E03.9 Hypothyroidism, unspecified (principal); E11.65 Type 2 diabetes mellitus with hyperglycemia; E66.9 Obesity, unspecified; E78.5 Hyperlipidemia, unspecified; N95.1 Menopausal and female climacteric states; R53.82 Chronic fatigue, unspecified; Z71.3 Dietary counseling and surveillance
CPT/HCPCS: 36415; 80053; 80061; 82043; 82670; 83036; 84144; 84439; 84443; 84481; 85025

== ENCOUNTER 2024-12-17 10:35 | Outpatient (CLI) | payer OTHER, MEDICARE, SELFPAY ==
--- NOTE | ~2024-12-17 | DEXA_ITS ---
Bone Density Report Name: JOSE MANUEL DONOVAN Age: 59 Sex: Female Ethnicity: White Date of : 1965 Indication: monitoring treatment; parental hip fracture; height loss; asthma or emphysema; hysterectomy; rheumatoid arthritis; Referring Provider: OTTO, CARMELINA Study: Bone densitometry was performed. Exam Date: December 17, 2024 Accession number: [id number] Bone Density: Region BMD T-score Z-score Classification AP Spine(L1-L4) 1.132 0.8 2.3 Normal Femoral Neck (Left) 0.815 -0.3 1.1 Normal Total Hip (Left) 0.901 -0.3 0.7 Normal Femoral Neck (Right) 0.801 -0.4 0.9 Normal Total Hip (Right) 0.906 -0.3 0.7 Normal Total Hip Mean 0.904 -0.3 0.7 Normal World Health Organization criteria for BMD impression classify patients as: Normal (T-score at or above -1.0), Osteopenia (T-score between -1.0 and -2.5), or Osteoporosis (T-score at or below -2.5). 10-year Fracture Risk: FRAX not reported because: All T-scores for Spine Total, Hip Total, Femoral Neck at or above -1.0 Treated for osteoporosis Previous Exams: Region Exam Age BMD T-score BMD Change BMD Change Date g/cm2 vs Baseline vs Previous AP Spine (L1-L4) 12/17/2024 59 1.132 0.8 -0.070 (-5.8%) -0.120 (-9.6%) 08/04/2022 57 1.252 1.9 0.050 (4.2%)# 0.050 (4.2%)# 10/27/2018 53 1.202 1.4 Total Hip(Left) 12/17/2024 59 0.901 -0.3 -0.268 (-23.0% -0.172 (-16.0% 08/04/2022 57 1.073 1.1 -0.097 (-8.3%) -0.097 (-8.3%) 10/27/2018 53 1.169 1.9 Total Hip(Right) 12/17/2024 59 0.906 -0.3 -0.207 (-18.6% -0.152 (-14.4% 08/04/2022 57 1.059 1.0 -0.055 (-4.9%) -0.055 (-4.9%) 10/27/2018 53 1.114 1.4 *Denotes significance at 95% confidence level, LSC for AP Spine = 0.022 g/cm2, LSC for Total Hip = 0.027 g/cm2 # Denotes dissimilar scan types or analysis methods Clinical Information Provided by Patient: Parent has had a hip fracture Has rheumatoid arthritis Is being treated for osteoporosis Has used the following medications: Vitamin D Has the following medical conditions: Asthma or Emphysema, Hysterectomy Patient maximum height was 64 Menopause Age: 33 No regular weight bearing exercise Drinks caffeinated beverages Onset of menses at age 11 Number of children 1 Impression: The patient has normal bone mass. The patient has risk factors, including: parental hip fracture. No significant bone loss was observed. Discussion: PATIENT UNDER TREATMENT WITH NO SIGNIFICANT BMD LOSS SINCE LAST EXAM. In an untreated patient, BMD typically declines with age. A lack of decline or gain is usually a sign that treatment is efficacious and fracture risk is reduced. It is important to ask patients whether they are taking their medications and to encourage continued and appropriate compliance with their osteoporosis therapies to reduce fracture risk. It is also important to review their risk factors and encourage appropriate calcium and vitamin D intakes, exercise, fall prevention and other lifestyle measures. Follow-Up: Consider a repeat BMD and Vertebral Fracture Assessment (VFA) exam in 2 years or sooner if medically necessary, to reassess this patient's status. Reported by: FRANK on 12/17/2024 11:05:00 AM. Reviewed, dictated and finalized at location AAbby VELASCO
--- OUTSIDE RECORDS SUMMARY | 2024-12-17 10:51 | XMS_ITS | Clinical Summary ---
Author Organization [employer] [facility] [facility] [[email or web address]] Address [address] [place] [address] Care Team Providers Care Construction Consultant Name Role Phone Dirk Solis MD Primary Care Provider Allergies Active Allergy Reactions Criticality Noted Date Comments Amitriptyline Other (See Comments) 05/07/2020 Amoxicillin Hives High 05/07/2020 Codeine Nausea and Vomiting Low 05/07/2020 Fentanyl Other (See Comments) 05/07/2020 Sulfa (Sulfonamide Antibiotics) Hives High 0710/2019 Medications loratadine (CLARITIN) 10 mg tablet Take 10 mg by mouth daily. Active levoFLOXacin (LEVAQUIN) 750 mg tablet Take 750 mg by mouth daily. Active Blood-Glucose Meter (True Metrix Glucose Meter) [facility]Non-Drug; Combo Route) route. Active blood sugar diagnostic (True Metrix Glucose Test Strip) Strip 1 Strip by See Admin Instructions route. Active lancets 1 Each by Misc.(Non-Drug; Combo Route) route. Active pravastatin (PRAVACHOL) 20 mg tablet Take 20 mg by mouth daily with supper. Active fluticasone propionate (FLONASE) 50 mcg/spray [place], Suspension nasal inhaler Administer 2 Sprays in each nostril daily. Active losartan (COZAAR) 100 mg tablet Take 100 mg by mouth daily. Active montelukast (SINGULAIR) 10 mg tablet Take 10 mg by mouth daily at bedtime. Active hydrOXYchloroQUINE (PLAQUENIL) 200 mg tablet Take 200 mg by mouth daily. Active leflunomide (ARAVA) 20 mg Tablet Take 20 mg by mouth. Active tiotropium bromide (SPIRIVA RESPIMAT INHALATION) Take by inhalation. Active albuterol HFA 90 mcg inhaler Take 2 Puffs by inhalation every 6 hours as needed for Shortness of Breath. Active pneumococcal polysaccharide vaccine, PPSV23, (PNEUMOVAX 23) 25 mcg/0.5 mL Solution Pneumovax-23 25 mcg/0.5 mL injection solution Active metFORMIN (GLUCOPHAGE XR) 500 mg Extended Release 24 hour tablet 04/13/20 20 Active meclizine (ANTIVERT) 25 mg tablet TK 1 T PO BID FOR 15 DAYS PRN 04/07/20 20 Active loteprednol etabonate (Alrex) 0.2 % Drops, Suspension Alrex 0.2 % eye drops,suspension Active ipratropium-albuter oL (DUONEB) 0.5 mg-3 mg(2.5 mg base)/3 mL Solution for Nebulization USE 1 VIAL IN NEBULIZER EVERY 4 HOURS UNTIL BREATHING RETURNS TO TARGET PEAK FLOW PARAMETERS 03/26/20 20 Active fluconazole (DIFLUCAN) 150 mg tablet TAKE ONE TABLET DAILY TODAY DIRECTED 02/10/20 20 Active clarithromycin (BIAXIN) 500 mg tablet clarithromycin 500 mg tablet Active Cholecalciferol, Vitamin D3, 50 mcg (2,000 unit) Capsule TK 2 CS PO QAM 04/10/20 20 Active influenza virus tri-split (FLUZONE 6324-5454 IM) Fluzone 0443-4140 45 mcg (15 mcg x 3)/0.5 mL intramuscular suspension Active budesonide-formoter oL (SYMBICORT) 160-4.5 mcg/actuation HFA Aerosol Inhaler Symbicort 160 mcg-4.5 mcg/actuation HFA aerosol inhaler INL 2 PFS PO Q 12 H 05/25/20 20 Active cycloSPORINE (RESTASIS) 0.05 % emulsion Restasis 0.05 % eye drops in a dropperette PRN Active diazePAM (VALIUM) 2 mg tablet 08/06/20 20 Active fenofibrate nanocrystallized (TRICOR) 48 mg tablet TK 1 T PO QD 08/16/20 20 Active folic acid (FOLVITE) 1 mg tablet folic acid 1 mg tablet TK 2 TO 4 TS PO D 06/03/20 20 Active spironolactone (ALDACTONE) 50 mg tablet TK 1 T PO D 09/07/20 20 Active triamcinolone acetonide (KENALOG) 0.1 % Cream triamcinolone acetonide 0.1 % topical cream Active valACYclovir (VALTREX) 1 gram tablet Take by mouth. 01/17/20 19 Active celecoxib (CeleBREX) 200 mg capsule celecoxib 200 mg capsule 01/12/20 21 Active dexAMETHasone (DECADRON) 1 mg Tablet dexamethasone 1 mg tablet Take 1 tablet at 10 PM night before 8 am cortisol level Active levothyroxine (SYNTHROID) 88 mcg tablet every 24 hours. Acti ve golimumab (Simponi ARIA) 12.5 mg/mL Solution Simponi ARIA Active OXYGEN-AIR DELIVERY SYSTEMS MISC oxygen 2L with activity Active omeprazole (PriLOSEC) 40 mg Capsule, Delayed Release(E.C.) omeprazole 40 mg capsule,delayed release TAKE 1 CAPSULE BY MOUTH EVERY DAY NEEDED Active Saccharomyces boulardii (Florastor) 250 mg Capsule Florastor 250 mg capsule TAKE ONE CAPSULE BY MOUTH TWICE DAILY Active predniSONE (DELTASONE) 2.5 mg tablet prednisone 2.5 mg tablet TK 1T PO QD Active busPIRone (BUSPAR) 5 mg tablet buspirone 5 mg tablet TAKE 1 TABLET BY MOUTH TWICE DAILY Active guaiFENesin (Mucinex) 600 mg Extended Release Biphasic tablet Mucinex 600 mg tablet, extended release TAKE 2 TABLETS BY MOUTH EVERY 12 HOURS Active oxybutynin chloride (DITROPAN XL) 10 mg Extended Release 24 hour tablet oxybutynin chloride ER 10 mg tablet,extended release 24 hr TAKE 1 TABLET BY MOUTH DAILY Active fluticasone propion-salmeteroL (Advair Diskus) 100-50 mcg/dose disk inhaler Advair Diskus 100-50 mcg/dose blister with device 01/17/20 19 Active albuterol (PROVENTIL,VENTOLIN ) 2.5 mg /3 mL (0.083 %) Solution for Nebulization albuterol sulfate 2.5 mg/3 mL (0.083 %) solution for nebulization USE 1 VIAL VIA NEBULIZER FOUR TIMES DAILY FOR SHORTNESS OF BREATH OR WHEEZING Active tacrolimus (PROTOPIC) 0.1 % Ointment 03/25/20 22 Active nystatin (Nystop) 100,000 unit/gram powder Nystop 100,000 unit/gram topical powder APPLY TOPICALLY EVERY 12 HOURS Active mupirocin (BACTROBAN) 2 % Ointment mupirocin 2 % topical ointment APPLY SMALL AMOUNT TOPICALLY TO THE AFFECTED AREA THREE TIMES DAILY Active miconazole (RUBY,MICOTIN,REMED Y AF) 2 % Cream miconazole nitrate 2 % topical cream APPLY TO THE AFFECTED AREA TWICE DAILY IN THE MORNING AND EVENING Active ipratropium bromide (ATROVENT) 0.02 % Solution ipratropium bromide 0.02 % solution for inhalation USE 1 VIAL IN NEBULIZER FOUR TIMES DAILY Active immune globulin G, IgG,-sorb-IgA (FLEBOGAMMA) 5 % Solution injection Gammaplex (with sorbitol) 5 % intravenous solution Inject by intravenous route. Active diltiaZEM (CARDIZEM CD) 120 mg Controlled Delivery 24 hour capsule Take 120 mg by mouth daily. 04/25/20 22 Active dapsone (ACZONE) 5 % gel APPLY A THIN LAYER TO BUTTOCK/GROIN AREA TWICE DAILY EVERY OTHER DAY TO PREVENT FLARES 03/18/20 22 Active budesonide (PULMICORT RESPULE) 0.5 mg/2 mL Suspension for Nebulization budesonide 0.5 mg/2 mL suspension for nebulization Active nirmatrelvir-ritona vir (PAXLOVID) 150-100 mg oral pack (renal dosing)Indications: Patient has immunoglobulin deficiency Use as directed 1 Dose Pack 05/05/20 22 Active ondansetron (ZOFRAN) 4 mg TabletIndications:N ausea ondansetron HCl 4 mg tablet TAKE 1 TABLET BY MOUTH TWICE DAILY NEEDED 90 Tablet 3 07/28/20 22 Active CIPROFLOXACIN HCL ORAL Take 150 mg by mouth 2 times daily. Opens table and puts in solution to squirt up nose Active SUMAtriptan (IMITREX) 25 mg tabletIndications:M igraine without status migrainosus, not intractable, unspecified migraine type,Immunoglobulin deficiency, acquired TAKE 1 TABLET BY MOUTH EVERY 4 HOURS NEEDED UP TO 8 TABLETS PER DAY 30 Tablet 3 08/06/20 24 Active cyanocobalamin (VITAMIN B-12) 1,000 mcg/mL Solution 09/16/20 24 Active estradioL 0.05 mg/24 hr patch 08/26/20 24 Active estradioL (ESTRACE) 0.01% (0.1 mg/g) vaginal cream USE 1 GRAM VAGINALLY 3 TIMES A WEEK 08/30/20 24 Active gabapentin (NEURONTIN) 100 mg capsule Take 100 mg by mouth 3 times daily. Active liothyronine (CYTOMEL) 5 mcg Tablet Take 5 mcg by mouth daily. 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 Oncology and Hematology - [place] [address] [place] [address] Max Moody MD 11/29/[address] [facility] [address] [place] [address] Max Moody MD 11/21/2024 External Device Data STL ABSTRACTION Provider, Abstract 11/19/[address] [facility]ematology - [place] [address] [place] [address] Max Moody MD IGG Denial 11/08/[address] [facility]ology - [place] [address] [place] [address] Max Moody MD 11/08/[address] [facility]ology - [place] [address] [place] [address] Max Moody MD 10/08/2024 External Device Data STL ABSTRACTION Provider, Abstract 10/01/[address] [facility]ology [facility] [address] [place] [address] Max Moody MD Medication Review 09/19/[address] [facility] - [place] [address] [place] [address] Max Moody MD 09/18/2024 2:45 PM TECHNICAL PUBLICATIONS WRITER Office Visit [facility] [place] [address] [place] [address] Max Moody MD Immunoglobulin deficiency, acquired (Primary Dx) from Last 3 Months Family History Medical History Relation Name Comments Diabetes Brother 1 Heart Disease Brother 1 Heart Disease Brother 2 Cancer Father Cancer Mother Diabetes Mother Relation Name Status Comments Brother 1 Alive Brother 2 Alive Brother 3 Alive Father Mother Sister Alive Social History Tobacco Use Types Packs/Day Years Used Date Smoking Tobacco: Former Cigarettes 0.5 8 0 04/29/1986 - 04/29/1994 Smokeless Tobacco: Never Tobacco Cessation:Counseling Given: Not Answered Alcohol Use Standard Drinks/Week Comments Never 0 (1 standard drink = 0.6 oz pur e alcohol) Comments No Sex and Gender Information Value Date Recorded Sex Assigned at Not on file Legal Sex Female 2:30 PM CDT Gender Identity Not on file Sexual Orientation Not on file Last Filed Vital Signs Vital Sign Reading Time Taken Comments Blood Pressure 154/77 09/18/2024 2:57 PM TECHNICAL PUBLICATIONS WRITER Pulse 75 09/18/2024 2:57 PM TECHNICAL PUBLICATIONS WRITER Temperature 36.6 C (97.8 F) 09/18/2024 2:57 PM TECHNICAL PUBLICATIONS WRITER Respiratory Rate 16 09/18/2024 2:57 PM TECHNICAL PUBLICATIONS WRITER Oxygen Saturation 91% 09/18/2024 2:57 PM TECHNICAL PUBLICATIONS WRITER Inhaled Oxygen Concentration - - Weight 92.5 kg (204 lb) 09/18/2024 2:57 PM TECHNICAL PUBLICATIONS WRITER Height 160 cm (5' 3 ) 05/05/2022 1:16 PM CDT Body Mass Index 36.14 05/05/2022 1:16 PM CDT Plan of Treatment Upcoming Encounters Date Type Department Care Team (Late st Contact Info) Description 03/19/2025 10:00 AM CDT Office Visit [facility] [place] [address] [place] [address] Max Moody MD [address] [facility] [employer] [address] [place] [address] Health Maintenance Due Date Last Done Comments DIABETES ANNUAL FOOT EXAM 1981 DIABETES MICROALBUMIN ANNUAL SCREEN 1981 LDL CHOLESTEROL ANNUAL 1981 CERVICAL CANCER SCREENING 1993 BREAST CANCER SCREENING 2003 COLORECTAL SCREENING 2008 Colorectal Cancer Screening 2008 FIT-DNA Q 3 years 2008 FIT/FOBT Q 1 year 2008 Flex Sig/CT Colonography Q 5 years 2008 ZOSTER VACCINE (2 of 2) 12/24/2020 10/29/2020 RSV VACCINE (60+ or ) (1 - Risk 60-74 years 1-dose series) 2023 DIABETES ANNUAL RETINAL EXAM 02/10/2024 02/09/2023 INFLUENZA VACCINE (#1) 2024 , 08/11/2020, 08/05/2019, Additional history exists Preventative Visit- Commercial 10/30/2024 DIABETES HBA1C Q 6 MONTHS 11/20/20242023, 03/29/2024, 05/12/2023, Additional history exists DTAP/TDAP/TD VACCINES (2 - T d or Tdap) 06/01/2027 06/01/2017 Procedures Procedure Name Priority Date/Time Associated Diagnosis Comments IGG Routine 11/05/2024 1:59 PM TECHNICAL PUBLICATIONS WRITER BASIC METABOLIC PANEL Routine 09/17/2024 3:52 PM TECHNICAL PUBLICATIONS WRITER from Last 3 Months Results * IGG (11/05/2024 1:59 PM TECHNICAL PUBLICATIONS WRITER) Blood us Max Moody MD CHEMISTRY ORDERABLES Final Resu lt * BASIC METABOLIC PANEL (09/17/2024 3:52 PM TECHNICAL PUBLICATIONS WRITER) Blood us Max Moody MD CHEMISTRY ORDERABLES Final Resu lt from Last 3 Months Insurance MEDICARE PART A AND B [facility] CHOICE [id number] Care Teams Construction Consultant Relationship Specialty Start Date End Date Dirk Solis MD PCP - General Internal Medicine 04/14/20
--- OUTSIDE RECORDS SUMMARY | 2024-12-17 10:51 | XMS_ITS ---
Author Organization [facility] Address [address] [place] [address] Care Team Providers Care Bond Clerk Name Role Cordelia Roberts Primary Care Provider [phone] Encounters Encounter Location Date Provider Diagnosis [facility] [address] [place] [address] 11/24/2024 Cordelia Cardoso Plan Of Treatment Next Appt Details Provider Name:Cordelia Cardoso, 10:00:00 AM, [address] [place], [address], Progress Notes * Ena EMhDOB: [birth year] (59 yo F)Acc No.[id number]:11/24/2024 Patient: Karen PARISI :1965 A ge:59 Y S ex:Female Address:[address] [place] [address], [place] [address] * true * Date: Generated for Latisha kerns/Julienne/eTransmitting on: 0 12/17/2024 10:51 AM 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
--- OUTSIDE RECORDS SUMMARY | 2024-12-17 10:52 | XMS_ITS ---
Author Organization [employer] [facility] [employer] [facility] Address [address] [place] [address] Care Team Providers Care Knitter Hand Name Role Cordelia Roberts Primary Care Provider Medications Medication SIG (Take, Route, Fr equency, Duration) Notes Start Date End Date Status dexAMETHasone 1 MG 1 tablet at 10pm Ora lly once for 1 days 11/27/2024 Active Encounters Encounter Location Date Provider Diagnosis [facility] - Cordelia Cardoso [address] [place] [address] 11/27/2024 Cordelia Cardoso Plan Of Treatment Medication Medication Name Sig Start Date Stop Date Notes dexAMETHasone 1 MG 1 tablet at 10pm Orally once for 1 days 11/27/2024 Next Appt Details Provider Name:Cordeliajudie Cardoso, 10:00:00 AM, [address], [place], [address], Progress Notes * Ena EMhDOB: [birth year] (59 yo F)Acc No.[id number]:11/27/2024 Patient: Eric RichardsSTANISLAWJOSH Karen :1965 A ge:59 Y S ex:Female Address:[address] [facility] [place] [address] * Refills Start dexAMETHasone Tablet, 1 MG, Orally, 1, 1 tablet at 10pm, once, 1 days, Refills=1 * true * Date: Generated for Printi ng/Faxing/eTransmitting on: 0 12/17/2024 10:51 AM BAKED AND GRAPHITE INSPECTOR
--- OUTSIDE RECORDS SUMMARY | 2024-12-17 10:52 | XMS_ITS | Referral Summary ---
Author Organization [facility] [place] [address] Address [address] [place] [address] Care Team Providers Care Invertebrate Paleontologist Name Role Phone Rosalie Solis MD Primary Care Provide r Allergies Active Allergy Reactions Criticality Noted Date Comments Amitriptyline Other (See comments) Low 05/07/2020 Stops me from peeing Amoxicillin Hives High 05/07/2020 Codeine Nausea And Vomiting Low 05/07/2020 Fentanyl Other (See comments),Vomiting Low 05/07/2020 Stopped breathing Sulfa (Sulfonamide Antibiotics) Hives High 04/29/2020 Medications tirzepatide (Mounjaro) 10 mg/0.5 mL pen injector Take 10 mg by mouth once a week Mondays Active traMADoL (ULTRAM) 50 mg tablet Take 1 tablet (50 mg total) by mouth every 8 (eight) hours as needed for pain Active triamcinolone (KENALOG) 0.1 % cream Apply topically as needed for rash Active leflunomide (ARAVA) 20 mg tabletIndications: Rheumatoid Arthritis Take 1 tablet (20 mg total) by mouth every morning Active loratadine (CLARITIN) 10 mg tablet Take 1 tablet (10 mg total) by mouth every morning 03/26/20 24 Active metFORMIN XR (GLUCOPHAGE XR) 500 mg 24 hr tabletIndications: type 2 diabetes mellitus Take 1 tablet (500 mg total) by mouth 2 (two) times a day 04/13/20 20 Active omeprazole (PriLOSEC) 40 mg capsule Take 1 capsule (40 mg total) by mouth every morning Active celecoxib (CeleBREX) 200 mg capsuleIndications :Pain Take 1 capsule (200 mg total) by mouth every morning 01/12/20 21 Active dilTIAZem CD 120 mg 24 hr capsuleIndications :hypertension Take 1 capsule (120 mg total) by mouth every morning 04/25/20 22 Active hydroxychloroquine (PLAQUENIL) 200 mg tabletIndications: Rheumatoid Arthritis Take 2 tablets (400 mg total) by mouth 2 (two) times a day Active predniSONE (DELTASONE) 2.5 mg tablet Take 3 tablets (7.5 mg) by mouth as needed (RA) Active pravastatin (PRAVACHOL) 20 mg tabletIndications: hyperlipidemia Take 1 tablet (20 mg total) by mouth every morning Active oxyBUTYnin XL (DITROPAN-XL) 10 mg 24 hr tabletIndications: Bladder Hyperactivity Take 1 tablet (10 mg total) by mouth every morning Active montelukast (SINGULAIR) 10 mg tabletIndications: Maintenance Therapy for Asthma Take 1 tablet (10 mg total) by mouth every morning Active spironolactone (ALDACTONE) 50 mg tabletIndications: edema Take 1 tablet (50 mg total) by mouth every morning 09/07/20 20 Active busPIRone (BUSPAR) 5 mg tabletIndications: Generalized Anxiety Disorder Take 1 tablet (5 mg total) by mouth 2 (two) times a day Active Unithroid 75 mcg tabletIndications: hypothyroidism Take 1 tablet (75 mcg total) by mouth toy designer before breakfast Active folic acid (FOLVITE) 1 mg tablet Take 3 tablets (3 mg total) by mouth every morning 06/03/20 20 Active tiotropium bromide (SPIRIVA RESPIMAT) 2.5 mcg/actuation inhalerIndications :Maintenance Therapy for Asthma Inhale 2 puffs daily Active fluticasone propionate (FLONASE) 50 mcg/actuation nasal spray Administer 1 spray into each nostril daily Active ondansetron (ZOFRAN) 4 mg tablet Take 1 tablet (4 mg total) by mouth every 12 (twelve) hours as needed for nausea or vomiting 07/28/20 22 Active albuterol HFA (PROVENTIL HFA,VENTOLIN HFA,PROAIR HFA) 90 mcg/actuation inhaler Inhale 2 puffs every 6 (six) hours as needed for wheezing or shortness of breath Active SUMAtriptan (IMITREX) 25 mg tablet Take 1 tablet (25 mg total) by mouth every 6 (six) hours as needed for migraine 12/09/19 23 Active tacrolimus (PROTOPIC) 0.1 % ointment Apply 1 Application topically as needed 03/25/20 22 Active dapsone 5 % topical gel Apply 1 Application topically as needed 03/18/20 22 Active mupirocin (BACTROBAN) 2 % ointment Apply topically as needed Active Gamunex-C infusionIndication s:IGD deficiency Infuse 400 mL (40 g total) into a venous catheter every 3 (three) months Q 3 months Active losartan (COZAAR) 100 mg tabletIndications: hypertension Take 1 tablet (100 mg total) by mouth every morning Active golimumab (Simponi ARIA) 12.5 mg/mL solutionIndication s:Rheumatoid Arthritis Infuse into a venous catheter Every 2 months Active cholecalciferol (VITAMIN D-3) 2000 unit capsuleIndications :Vitamin D Deficiency Take 2 capsules (4,000 Units total) by mouth every morning Active fluticasone propion-salmeteroL (ADVAIR DISKUS) 500-50 mcg/dose diskus inhalerIndications :Maintenance Therapy for Asthma Inhale 1 puff every morning Rinse mouth with water after use. Do not swallow. Active tavaborole 5 % solution with applicatorIndicati ons:nail infection Apply topically as needed Active docusate sodium (COLACE) 100 mg capsuleIndications :constipation Take 1 capsule (100 mg total) by mouth 2 (two) times a day 30 capsule 04/09/20 24 Active oxyCODONE (ROXICODONE) 5 mg immediate release tabletIndications: Pain Take 1 tablet (5 mg total) by mouth every 4 (four) hours as needed for pain 15 tablet 04/09/20 24 Active ondansetron ODT (ZOFRAN-ODT) 4 mg disintegrating tablet Take 1 tablet (4 mg total) by mouth every 8 (eight) hours as needed for nausea or vomiting 20 tablet 04/09/20 24 Active Active Problems Problem Noted Date Diagnosed Date Abdominal pannus 03/15/2024 COPD (chronic obstructive pulmonary disease) Morbid obesity with BMI of 50.0-59.9, adult 08/30 Sleep apnea 09/14/2020 Immunoglobulin deficiency, 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 Monthly or less 04/09/2024 Q2: How many drinks containi ng alcohol do you have on a typical day when you are drinking? 1 or 2 04/09/2024 Q3: How often do you have si x or more drinks on one occasion? Never 04/09/2024 Personal Safety Answer Date Recorded Have you ever been in or are you currently in a harmful physical or emotional relationship or is someone making you feel afraid or unsafe? 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 Gender Identity Not on file Sexual Orientation Not on file Last Filed Vital Signs Vital Sign Reading Time Taken Comments Blood Pressure 134/66 04/09/2024 6:20 PM CDT Pulse 81 04/09/2024 6:20 PM CDT Temperature 36.6 C (97.9 F) 04/09/2024 6:50 PM CDT Respiratory Rate 10 04/09/2024 6:20 PM CDT Oxygen Saturation 94% 04/09/2024 6:20 PM CDT Inhaled Oxygen Concentration - - Weight 95 kg (209 lb 7 oz) 03/29/2024 1:42 PM CD T Height 160 cm (5' 3 ) 03/29/2024 1:42 PM CDT Body Mass Index 37.1 03/29/2024 1:42 PM CDT Plan of Treatment Not on file Insurance [employer] [facility] H[employer]PPO Address: [address] [place] [address] BLUE ACCESS O [facility] [place] MEDIC[facility] [place] MEDICARE Care Teams Invertebrate Paleontologist Relationship Specialty Start Date End Date Rosalie Solis MD [address] [facility] [address] [place] [address] PCP - General 09/01/20
--- OUTSIDE RECORDS SUMMARY | 2024-12-17 10:52 | XMS_ITS | Clinical Summary ---
Author Organization [facility] [place] [address] Address [address] [place] [address] Care Team Providers Care High Man Name Role Phone Rosalie Solis MD Primary [...] 1 tablet (75 mcg total) by mouth first aid attendant before breakfast Active folic acid (FOLVITE) 1 [...] dermatitis 03/12/2015 Cellulitis of lower leg 02/12/2015 Surgical History Surgery Date Site/Laterality Comments TONSILLECTOMY CHOLECYSTECTOMY EYE MUSCLE SURGERY SECTION HYSTERECTOMY KNEE ARTHROSCOPY Bilateral SINUS SURGERY CARPAL TUNNEL RELEASE Bilateral Medical History Medical History Date Comments PONV (postoperative nausea and vomiting) Sleep apnea Family History Medical History Relation Name Comments Anesthesia problems Neg Hx Social History Tobacco Use Types Packs/Day Years [...] on file 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 [employer] Gender Identity Not on file Sexual Orientation Not on file Obstetrics History Last Filed Vital Signs Vital Sign Reading [...] 03/29/2024 1:42 PM CDT Plan of Treatment Health Maintenance Due Date Last Done Comments Breast Cancer Screening-Mammogram 1965 Colon Cancer Screening-Colonoscopy 1965 Depression Screening 1965 Hepatitis C Screening 1965 Hepatitis B Screening 1981 Regular Well Visit/Exam 18-64 1981 Covid-19 Vaccine (5 - 2023-2 5 season) 2024 10/10/2023, 12/24/2021, 05/27/2021, Additional history exists Influenza Vaccine (#1) 2024 3, 08/23/2022, 11/02/2021, Additional history exists Pneumococcal vaccine <65 (3 of 3 - PPSV23 or PCV20) 08/11/2025 08/11/2020, 06/01/2017 DTaP/Tdap/Td Vaccine (2 - Td or Tdap) 06/01/2027 06/01/2017 Zoster Vaccine Completed 12/28/2020, 10/29/2020 [facility] [employer] [facility] MEDICARE [facility] MEDICARE Care Teams High Man Relationship Specialty Start Date End Date Rosalie Solis MD [address] [address] PCP - General 09/01/20
== END 2024-12-17 10:36 | disposition home or self-care (01) ==
LOC: ANHIMG 10:37
PROVIDERS: PCP Internal Medicine; Visit Provider Internal Medicine
DX: Z13.820 Encounter for screening for osteoporosis (principal); Z78.0 Asymptomatic menopausal state
CPT/HCPCS: 77080

== ENCOUNTER 2025-01-17 07:19 | Outpatient (CLI) | payer OTHER, MEDICARE, SELFPAY ==
--- OUTSIDE RECORDS SUMMARY | 2025-01-17 07:25 | XMS_ITS | Clinical Summary ---
Author Organization [employer] [facility] Address [address] [place] [address] Care Team Providers Care Racebook Writer Name Role Phone iDrk Solis MD Primary Care Provider Allergies Active [...] Blood-Glucose Meter (True Metrix Glucose Meter) by [facility]Non-Drug; Combo Route) route. Active blood sugar diagnostic (True Metrix Glucose Test Strip) Strip 1 Strip by See Admin Instructions route. Active lancets 1 Each by Misc.(Non-Drug; Combo Route) route. Active pravastatin (PRAVACHOL) 20 mg tablet Take 20 mg by mouth daily with supper. 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 Encounters Date Type Department Care Team Description 01/15/2025 External Device Data [facility] ABSTRACTION Provider, Abstract 01/04/2025 External Device Data [facility] ABSTRACTION Provider, Abstract 01/03/2025 External Device Data [facility] ABSTRACTION Provider, Abstract 12/31/2024 External Device Data [facility] ABSTRACTION Provider, Abstract 12/13/2024 Abstract [facility] - [place] [address] [place] [address] Max Moody MD 11/29/2024 Abstract [facility] [place] [address] [place] [address] Max Moody MD 11/21/2024 External Device Data [facility] ABSTRACTION Provider, Abstract 11/19/2024 Telephone [facility] - [place] [address] [place] [address] Max Moody MD IGG Denial 11/08/2024 Orders Only [facility] [place] [address] [place] [address] Max Moody MD 11/08/2024 Abstract [facility] - [place] [address] [place] [address] Max Moody MD from Last 3 Months Family History Medical [...] Comments Blood Pressure 154/77 09/18/2024 2:57 PM [employer] Pulse 75 09/18/2024 2:57 PM [employer] Temperature 36.6 C (97.8 F) 09/18/2024 2:57 PM [employer] Respiratory Rate 16 09/18/2024 2:57 PM [employer] Oxygen Saturation 91% 09/18/2024 2:57 PM [employer] Inhaled Oxygen Concentration - - Weight 92.5 kg (204 lb) 09/18/2024 2:57 PM [employer] Height 160 cm (5' 3 ) 05/05/2022 1:16 PM CDT Body Mass Index 36.14 05/05/2022 1:16 PM CDT Plan of Treatment Upcoming Encounters Date Type Department Care Team (Late st Contact Info) Description 03/19/2025 10:00 AM CDT Office Visit [facility] [place] [address] [place] [address] [facility] [address] [place] [address] Max Moody MD [address] [facility] [address] [place] [address] Health Maintenance Due Date Last Done Comments DIABETES ANNUAL FOOT EXAM 1981 DIABETES MICROALBUMIN ANNUAL SCREEN 1981 LDL CHOLESTEROL ANNUAL 1981 PAP SMEAR 1993 BREAST CANCER SCREENING 2003 COLORECTAL SCREENING [...] Diagnosis Comments IGG Routine 11/05/2024 1:59 PM [employer] from Last 3 Months Results * IGG (11/05/2024 1:59 PM [employer]) Blood us Max Moody MD CHEMISTRY ORDERABLES Final Resu lt from Last 3 Months Insurance MEDICARE PART A AND B [facility] CHOICE [id number] Care Teams Racebook Writer Relationship Specialty Start Date End Date Dirk Solis MD PCP - General Internal Medicine 04/14/20
--- OUTSIDE RECORDS SUMMARY | 2025-01-17 07:26 | XMS_ITS ---
Author Organization [employer] [facility] [employer] [facility] Address [address] [place] [address] Care Team Providers Care Mechanical Sound Technician Name Role Cordelia Roberts Primary Care Provider [phone] Medications Medication SIG (Take, Route, Fr equency, Duration) Notes Start Date End Date Status dexAMETHasone 1 MG 1 tablet at 10pm Ora lly once for 1 days 11/27/2024 Active Encounters Encounter Location Date Provider Diagnosis [facility] - Cordelia Cardoso [address] [place] [address] 11/27/2024 Cordelia Cardoso Plan Of Treatment Medication Medication Name Sig Start Date Stop Date Notes dexAMETHasone 1 MG 1 tablet at 10pm Orally once for 1 days 11/27/2024 Next Appt Details Provider Name:Cordeliajudie Cardoso, 10:00:00 AM, [address], [place], [address], Progress Notes * Ena EMhDOB: [birth year] (59 yo F)Acc No.[id number]:11/27/2024 Patient: Eric RichardsKaren VASQUEZ :1965 A ge:59 Y S ex:Female Address:[address] [facility], [place] [address] * Refills Start dexAMETHasone Tablet, 1 MG, Orally, 1, 1 tablet at 10pm, once, 1 days, Refills=1 * true * Date: Generated for Printi ng/Faxing/eTransmitting on: 0 01/17/2025 07:26 AM CDT
--- OUTSIDE RECORDS SUMMARY | 2025-01-17 07:26 | XMS_ITS ---
Author Organization [facility] Address [address] [place] [address] Care Team Providers Care Home Care Music Therapist Name Role Phone Cordelia Cardoso Primary Care Provider Allergies Allergen (clinical drug ingredient) Drug/Non Drug Allergy documented on EMR Reaction Allergy Type Onset Date Status codeine Codeine Unknown Drug Allergy Active sulfadiazine sulfADIAZINE Unknown Drug Allergy A ctive fentanyl fentaNYL Unknown Drug Allergy Active amoxicillin Amoxicillin Unknown Drug Allergy Act shirley amitriptyline Amitriptyline HCl Unknown Drug Allergy Active REASON FOR VISIT 3 Month Follow-up Medications Medication SIG (Take, Route, Frequency, Duration) Notes Start Date End Date Status predniSONE 2.5 MG 1 tab(s) orally once a day for 30 day(s) only for flares 06/10/2024 Active Mupirocin 2 % 1 william applied topically 3 times a day for 90 days 06/10/2024 Active SUMAtriptan Succinate 25 MG 1 tab(s) orally once 06/10/2024 Active Cyanocobalamin 1000 MCG/ML inject 1000 mcg subcutaneously once weekly for 90 days 06/10/2024 Active Tavaborole 5 % 1 william applied topically once a day for 48 week(s) 06/10/2024 Active D3 50 MCG 1 CAP(S) ORALLY ONCE A DAY for 30 DAY(S) *Please review and pick correct strength-formula tion from Medispan options. If intended option is not shown, discontinue and re-order from Quick Search* 06/10/2024 Active Albuterol Sulfate HFA 108 (90 Base) MCG/ACT 2 puff(s) inhaled every 6 hours 06/10/2024 Active Ondansetron HCl 4 MG 1 tab(s) orally every 8 hours twice daily if needed after infusions for IGG 06/10/2024 Active Arnuity Ellipta FUROATE 50 MCG DIRECTED INHALED EVERY 24 HOURS *Please review and pick correct strength-formula tion from [employer] options. If intended option is not shown, discontinue and re-order from Quick Search* 06/10/2024 Active Fluticasone-Salmeterol 500 MCG-50 MCG 1 INH INHALED 2 TIMES A DAY for 30 DAY(S) *Please review and pick correct strength-formula tion from [employer] options. If intended option is not shown, discontinue and re-order from Quick Search* 06/10/2024 Active Montelukast Sodium 10 MG 1 tab(s) orally once a day for 30 day(s) 06/10/2024 Active Spironolactone 50 MG 1 tab(s) orally for 30 day(s) 06/10/2024 Active busPIRone HCl 5 MG 1 tab(s) orally 2 times a day for 30 day(s) 06/10/2024 Active Pravastatin Sodium 20 MG 1 tab(s) orally once a day for 30 day(s) 06/10/2024 Active Hydroxychloroquine Sulfate 200 MG 1 tab(s) orally once a day for 30 day(s) twice daily 06/10/2024 Active Leflunomide 20 MG 1 tab(s) orally once a day for 30 day(s) 06/10/2024 Active Omeprazole 40 MG 1 cap(s) orally once a day for 30 day(s) 06/10/2024 Active 24 HOUR ALLERGY RELIEF 10 MG 1 TAB(S) ORALLY ONCE A DAY 10 mg daily *Please review for potential replacement for e-prescription and drug interaction check* 06/10/2024 Active Losartan Potassium 100 MG 1 tab(s) orally once a day for 30 day(s) 06/10/2024 Active metFORMIN HCl ER (OSM) 500 MG 1 tab(s) orally once a day for 30 day(s) twice daily 06/10/2024 Active Unithroid 75 MCG (0.075 MG) for 90 DAYS *Please review and pick correct strength-formula tion from [employer] options. If intended option is not shown, discontinue and re-order from Quick Search* Active Gabapentin 100 MG 1 cap(s) orally 3 times a day Active Celecoxib 200 MG 1 cap(s) orally once a day for 30 day(s) two caps per day 06/10/2024 Active DILTIAZEM (EQV-CARDIZEM CD) 120 MG/24 HOURS 1 CAP(S) ORALLY ONCE A DAY for 30 DAY(S) *Please review for potential replacement for e-prescription and drug interaction check* 06/10/2024 Active Triamcinolone Acetonide 0.1% 1 WILLIAM ORALLY 2 TIMES A DAY (AFTER MEALS) *Please review and pick correct strength-formula tion from [employer] options. If intended option is not shown, discontinue and re-order from Quick Search* Active Gamunex-C 10% DIRECTED INTRAVENOUSLY EVERY 4 WEEKS *Please review and pick correct strength-formula tion from [employer] options. If intended option is not shown, discontinue and re-order from Quick Search* Active Liothyronine Sodium 5 MCG 1 to 2 tablet on an empty stomach Orally once daily in afternoon for 90 days 11/25/2024 Active DAPSONE TOPICAL 5% 1 WILLIAM APPLIED TOPICALLY 2 TIMES A DAY *Please review for potential replacement for e-prescription and drug interaction check* Active Vitamin E 180 MG 1 CAP(S) ORALLY ONCE A DAY *Please review and pick correct strength-formula tion from [employer] options. If intended option is not shown, discontinue and re-order from [employer] Search* Active Mounjaro 12.5 MG/0.5ML as directed subcutaneously once a week Active Mounjaro 15 MG/0.5ML as directed Subcutaneous weekly for 90 days 11/25/2024 Active Estradiol 0.05 MG/24HR 1 PATCH transdermally 2 times a week for 90 days 08/26/2024 Active Liothyronine Sodium 5 MCG 1 tab(s) orally once a day for 90 days 08/26/2024 Active Vital Signs Blood pressure systolic 154 mm Hg 11/25/19 25 Blood pressure diastolic 80 mm Hg 025 Heart Rate 80 /min 11/25/2024 Height 63 in 11/25/2024 Weight 202 lbs 11/25/2024 BMI 35.78 kg/m2 11/25/2024 SPO2: 96% Encounters Encounter Location Date Provider Diagnosis [facility] - Cordelia Cardoso [address] [place] [address] 11/25/2024 Cordelia Cardoso Type 2 diabetes kristian itus with hyperglycemia E11.65 ; Hyperlipidemia, unspecified E78.5 ; Hypothyroidism, unspecified E03.9 ; Obesity, unspecified E66.9 and Dietary counseling and surveillance Z71.3 Assessments Encounter Date Diagnosis (ICD Code) Assessment Notes Treatment Notes Treatment Clinical Notes Section Notes 11/25/2024 Type 2 diabetes mellitus with hyperglycemia (ICD-10 - E11.65) 11/25/2024 Hyperlipidemia, unspecified (ICD-10 - E78.5) 11/25/2024 Hypothyroidism, unspecified (ICD-10 - E03.9) 11/25/2024 Obesity, unspecified (ICD-10 - E66.9) 11/25/2024 Dietary counseling and surveillance (ICD-10 - Z71.3) 11/25/2024 Other Assessment and Plan: Endocrine disordersPatient demonstrates stable thyroid function with satisfactory free T4 levels. Recent dexamethasone suppression test results are within normal range.Increase liothyronine dosage to 2 tablets in the afternoon.Schedule another dexamethasone suppression test.Continue current Unithroid 75 prescription.Arrange for blood work the day before the next appointment in January. Type 2 Diabetes MellitusPatient is currently well-managed on Mounjaro 12.5 mg, with stable weight.Increase Mounjaro dosage to 15 mg.Maintain current metformin therapy. Rheumatoid ArthritisPatient experiences discomfort related to RA, particularly during sleep.Continue with hydroxychloroquine and leflunomide as current treatment.Utilize prednisone 2.5 mg as needed for flare-ups.Maintain as-needed injections for joint pain management. Common Variable ImmunodeficiencyPatient is on a regular schedule of IgG infusions every 3 months, with reported good immune levels.Continue IgG infusions at the current interval.Discuss the possibility of port placement with a wire cutter, evaluating the risks and benefits.Explore the option of transitioning to subcutaneous IVIG administration. Vitamin B12 deficiencyPatient is on a regimen of weekly subcutaneous B12 injections, facing insurance challenges for needle coverage.Persist with the current method of B12 administration.Address insurance issues concerning the coverage of injection supplies. HypokalemiaRecent potassium levels are slightly low but above critical levels, with the patient reporting no symptoms.Monitor potassium levels.No immediate intervention required given the current potassium level is above 3.5. Follow-up:Schedule follow-up appointments as necessary to review treatment efficacy and lab results.Encourage patient to report any new symptoms or concerns that may arise. Spent 15 minutes preventative counseling patient on dietary recommendations and changes in setting of hyperglycemia- need to restrict refined sugars and processed foods and incorporate up to 150 minutes of moderate level activity weekly. Spent 25 minutes preparing to see the patient (ex review of tests/chart), obtaining and / or reviewing separately obtained history, performing a medically appropriate examination and/or evaluation, counseling and educating the patient/family/caregiver, ordering medications, tests, or procedures, referring and communicating with other health ocular care aide, documenting clinical information in the electronic or other health record, independently interpreting results and communicating results to the patient/family/caregiver and care coordinating patient plan. Patient alert and oriented x 4 and aware of discussion noted above and in agreeance to plan in management of type 2 DM/well controlled, hyperlipidemia, hypothyroidism, weight management/obesity. Plan Of Treatment Medication Medication Name Sig Start Date Stop Date Notes Liothyronine Sodium 5 MCG 1 to 2 tablet on an empty stomach Orally once daily in afternoon for 90 days 11/25/2024 Mounjaro 15 MG/0.5ML as directed Subcuta neous weekly for 90 days 11/25/2024 Treatment Notes Assessment Notes Other Assessment and Plan: Endocrine disordersPatient demonstrates stable thyroid function with satisfactory free T4 levels. Recent dexamethasone suppression test results are within normal range.Increase liothyronine dosage to 2 tablets in the afternoon.Schedule another dexamethasone suppression test.Continue current Unithroid 75 prescription.Arrange for blood work the day before the next appointment in January. Type 2 Diabetes MellitusPatient is currently well-managed on Mounjaro 12.5 mg, with stable weight.Increase Mounjaro dosage to 15 mg.Maintain current metformin therapy. Rheumatoid ArthritisPatient experiences discomfort related to RA, particularly during sleep.Continue with hydroxychloroquine and leflunomide as current treatment.Utilize prednisone 2.5 mg as needed for flare-ups.Maintain as-needed injections for joint pain management. Common Variable ImmunodeficiencyPatient is on a regular schedule of IgG infusions every 3 months, with reported good immune levels.Continue IgG infusions at the current interval.Discuss the possibility of port placement with a wire cutter, evaluating the risks and benefits.Explore the option of transitioning to subcutaneous IVIG administration. Vitamin B12 deficiencyPatient is on a regimen of weekly subcutaneous B12 injections, facing insurance challenges for needle coverage.Persist with the current method of B12 administration.Address insurance issues concerning the coverage of injection supplies. HypokalemiaRecent potassium levels are slightly low but above critical levels, with the patient reporting no symptoms.Monitor potassium levels.No immediate intervention required given the current potassium level is above 3.5. Follow-up:Schedule follow-up appointments as necessary to review treatment efficacy and lab results.Encourage patient to report any new symptoms or concerns that may arise. Spent 15 minutes preventative counseling patient on dietary recommendations and changes in setting of hyperglycemia- need to restrict refined sugars and processed foods and incorporate up to 150 minutes of moderate level activity weekly. Spent 25 minutes preparing to see the patient (ex review of tests/chart), obtaining and / or reviewing separately obtained history, performing a medically appropriate examination and/or evaluation, counseling and educating the patient/family/caregiver, ordering medications, tests, or procedures, referring and communicating with other health ocular care aide, documenting clinical information in the electronic or other health record, independently interpreting results and communicating results to the patient/family/caregiver and care coordinating patient plan. Patient alert and oriented x 4 and aware of discussion noted above and in agreeance to plan in management of type 2 DM/well controlled, hyperlipidemia, hypothyroidism, weight management/obesity. Next Appt Details Follow Up: 4 Months, Reason: labwork Provider Name:Cordelia Cardoso, 10:00:00 AM, [address] , [place], [address], Progress Notes * Kvng EMOB: [id number] (59 yo F)Acc No.[id number]:11/25/2024 Progress Notes Patient: Karen PARISI Provider: Anna Cardoso MD :[id number] A ge:59 Y S ex:Female Date:11/25/2024 Address:[address] [place], [place] [id number] Subjective: * Chief Complaints: * 1 . 3 Month Follow-up. * HPI: I nterval Hx: 59 yo female comes in for follow up in management of well controlled type 2 DM, hypothyroidism, dyslipidemia. at her last visit in Jul we continued unithroid 75 mcg daily and added liothyronine 5 mcg in afternoon and continued vitamin D 3 4000 IU daily. Continued on mounjaro 10 mg weekly along with metformin 500 mg twice daily with meals. Patient Karen reports ongoing fatigue, thermal dysregulation, and difficulty sleeping due to rheumatoid arthritis. She is currently managing her conditions with a variety of medications, including Mounjaro for type 2 diabetes, Unithroid and liothyronine for thyroid function, and IgG infusions for common variable immunodeficiency. Recent lab results show stable thyroid levels, good immune levels, and slightly low potassium. The patient experienced severe side effects from a recent medication change for rheumatoid arthritis and has since returned to her previous regimen. She continues to receive B12 injections and is considering a port placement for easier IgG infusion access. Patient reports ongoing fatigue, which worsens as the day progresses. She wakes up at 6:30 AM to have coffee with her . The patient experiences thermal dysregulation, requiring multiple layers of blankets due to feeling cold. She continues to receive IgG infusions every 3 months and currently has a sinus infection. The patient reports difficulty sleeping some nights due to rheumatoid arthritis discomfort. She no longer takes tramadol, instead using gabapentin as needed and Tylenol PM regularly. She experiences occasional anxiety, which can affect her sleep. The patient uses a CPAP for sleep apnea. The patient reports easy bruising. She continues to receive B12 injections, administering them subcutaneously in the stomach. She is currently taking Mounjaro 12.5 mg with no reported problems, and her weight has been stable around 198 lbs. The patient attempted to switch from leflunomide to another medication but experienced severe side effects, including uncontrollable vomiting and sweating for an hour and a half after taking it. She has since returned to her previous medication regimen. She takes prednisone 2.5 mg when her hands become puffy and painful, and receives injections in her knees, hip, and lower back as needed. Medical History - Immunologic disorder - Rheumatoid arthritis - Sleep apnea - Sinus infection (current) - Fatigue - Anxiety Current and Past Medications and Supplements - IgG (every 3 months) - Gabapentin (as needed) - Tylenol PM (regularly) - C-PAP (for sleep apnea) - B12 shots (subcutaneous, weekly) - Mounjaro 12.5mg - Leflunomide - Hydroxychloroquine - Losartan - Diltiazem - Unithroid 75mcg - Dapsone - Triamcinolone creams - Estradiol patch 12.5 (twice a week) - Metformin - Pravastatin - Spironolactone - Buspirone - Prednisone 2.5mg (as needed) - Liothyronine (1-2 tablets in the afternoon) Social History - Living situation: lives with - Diet: drinks coffee with flavoring, enjoys ice cream - Exercise: participates in water aerobics when weather permits - Sleep: uses CPAP for sleep apnea; some nights uncomfortable due to RA - Stress/Anxiety: reports experiencing anxiety at times Review of Systems - General: Fatigue, especially as the day progresses - Respiratory: Current sinus infection - Sleep: Some nights uncomfortable sleeping due to RA, uses CPAP for sleep apnea - Psychiatric: Experiences anxiety at times, can stress out over minor things - Hematologic: Bruises easily - Endocrine: Always tired, feels cold - Gastrointestinal: Experienced uncontrollable vomiting and sweating with a previous medication (now discontinued) - Musculoskeletal: Hands get puffy and hurt at times Labs from 11/05/24: H/H normal IGG 518 mg/dL Cr normal glucose 85 mg/dL LFT normal 197/115/69/89 TSH of 2.380 uIU/ml K 3.9 mmol/L FT4 of 1.58 ng/dL microalbumin normal progesterone low vit D 57.7 ng/ML FT3 of 3.1 pg/mL a1c 5% estradiol low DST of 1.07 ug/dl ACTH 15 pg/ml DHEAS 39 mcg/dL iron sat 23%. * ROS: U ROLOGY: no d ifficulty urinating. n o b lood in urine. n o u rinary urgency. n o f requent urination. n o u rinary incontinence. n o v oiding dysfunction. n o v ulvodynia. n o d ysparaunia. n o r ecurrent UTI. n o w eak flow. n o d ribbling after urination. n o f requent bladder infections. n o k idney stone. n o k idney disease. n o u rine hesitancy.?no p ainful urination. N UTRITION: greater than body requirmemts y es. L ess than body requirements y es. a ppropriate / adequate y es, y es. C ONSTITUTIONAL: no w eight gain. n o l oss of appetite. n o?fever. n o w eakness. n o w eight loss. n o n ight sweats. n o n ausea. n o v isual changes. n o c hange in sleep patterns. h +p reviewed y es, R OS form reviewed with patient see scan for detail. n o c hange in activity capacity.? D ERMATOLOGY: rash y es. n o c hange in color of moles. n o?lumps. d ry or sensitive skin y es. n o h jennifer. n o o chayo skin. n o?acne. n o m oles-irregular. n o m oles-change/new. n o b oils. n o dandruff. n o e xcessive body odor. n o p soriasis. n o f ungal infections. n o n ail problems. n o r edness/inflammation. n o a thlete's foot.?no s kin cancer. n o e czema. E NDOCRINOLOGY: fatigue y es. n o e xcessive sweating. n o e xcessive thirst. n o e xcessive urination. n o w eight loss. n o s leep disturbance. c old intolerance y es. h eat intolerence y es. n o t hyroid disease. n o i ncreased loss of hair. n o h x of borderline diabetes. n o d iabetes. n o a bdormal body hair. n o r heumatism. n o c hanges in skin texture.? N EUROLOGY: no h eadache. n o t ingling numbness. n o s eizures. n o i nsomnia. n o m inge loss. d izziness y es. n o g ait abnormality. n o c hange in sensation anywhere on body. n o l ocalized weakness or numbness. n o b lackouts or near blackouts. n o m igraine. n o t remors.?no f ainting spells. n o h ead injury. n o s troke. O PTHALMOLOGY: no d iminished vision. n o e ye irritation. n o?drainage from eyes. n o b lurring of vision. n o s easonal eye sx. n o?dander related eye sx. n o l oss of vision. n o c ataracts. n o g lasses/contacts. n o g laucoma. n o d etached retina. n o m acular degeneration.?no e ye redness. R ESPIRATORY: shortness of breath y es. n o c hest pain. w heezing y es. n o a sthma. n o b reathlessness when lying flat. p rolonged cough y es. n o f requent infections (bronchitis). n o e mphysema. n o c hest congestion. n o s leep apnea. A LLERGY: no r unny nose. n o s cratchy throat. n o i tchy eyes. n o e ar fullness. n o s inus congestion. s tuffy nose y es.?no w atery eyes. n o s easonal allergies. n o h ay fever. n o a llergy. n o p olyps. n o s neezing. H EMATOLOGY/LYMPH: no s wollen glands. n o f atigue. n o l oss of appetite. e asy bruising yes. n o e asy bleeding. n o a nemia. ? E NT: no c old. n o c ough. n o c oughing blood.?no n ose bleed. n o h earing loss. n o c hange in voice. n o s ore throat. r inging in ears y es. n o s noring. n o e ar pain. n o r unny nose. n o w atery eyes. n o s inus infection. n o e ar infection. n o facial pain. n o h oarseness. n o g oiter. n o g um problems. n o?postnasal drip. n o f requent nosebleeds. C ARDIOLOGY: no c hest pain. n o p alpitations. n o l eg swelling. n o d izziness. s hortness of breath y es, W ith activity. n o?varicose veins. n o l eg cramps. n o c old hands or feet. n o h igh blood pressure. n o a nkle swelling. n o c ardiac catheterization. n o h eart attacks. n o a ngina. n o m urmurs. n o l ow blood pressure. n o l eg pain that resolves w/rest. n o p urple fingers or lips. n o i rregular heart rate. no c ongenital heart defects. n o d izziness when standing up quickly. n o a wakening at night short of breath. G ASTROENTEROLOGY: no n ausea. n o h eartburn. n o s tool incontinence. n o r eflux. n o a bdominal pain. n o i ndigestion. n o h emorrhoids. n o h iatal hernia. n o u lcers. n o a nal fissures. n o?hepatitis. n o g allstones. n o r ed blood after bowel movements. n o v omiting. n o b loating/belching. n o d ifficulty swallowing. n o d iarrhea.?no c onstipation. n o c hange in bowel habits. n o b lood in stool. ? M USCULOSKELETAL: joint swelling y es. j oint pain y es. n o l eg cramps. j oint stiffness y es. n o a rthritis. b ack pain y es. n o?muscle aches. n o m orning stiffness. n o t endinitis. n o n jim pain. no b ursitis. n o b one marrow biopsy. n o g out. a ctivity intolerance w eakness. n o f racture. P SYCHOLOGY: no h igh stress level. n o d epression. n o?sleep disturbances. n o r conrado sx worse with stress. n o s uicidal ideation. n o e ating disorder. n o m ental or physical abuse. a nxiety y es. n o h eadaches. d isease state y es. F EMALE REPRODUCTIVE: no h eavy periods. n o d ysparaunia. n o s exually active. n o p remenstrual syndrome. n o d ysmenorrhea. n o i nfertility. n o f requent yeast infections. n o v aginal itching. n o i ntermenstrual bleeding. n o p ost coital bleeding. n o p ostmenopausal bleeding. n o p elvic pain. n o m enstral cycle. n o v aginal discharge. n o v aginal dryness. n o o varian cysts. n o f ibroids. n o d ischarge from breast. n o abn. bleeding between cycles. n o p ostmenopausal symptoms. n o l oss of sexual interest. n o p ainful sexual intercourse. n o e ndometriosis. n o v aginal warts. n o a bnormal pap. b reast complaints P ain. n o i rregular periods. no a bnormal vaginal discharge. n o h ot flashes. R ecent Weight Changes- Yes. * Medical History: t ype 2 DM, Hypothyroidism, IGG deficiency, Rheumatoid arthritis, Dyslipidemia, vitamin D deficiency. * Family History: N o Family History documented.. * Social History: S moking: no . R ecreational drug use: no. Alcohol: yes, rarely. * Medications: T aking Liothyronine Sodium 5 MCG Tablet 1 tab(s) orally once a day , Taking Estradiol 0.05 MG/24HR Patch Twice Weekly 1 PATCH transdermally 2 times a week , Taking Mounjaro(Tirzepatide) 12.5 MG/0.5ML Solution Auto-injector as directed subcutaneously once a week , Taking Vitamin E 180 MG CAPSULE 1 CAP(S) ORALLY ONCE A DAY , Notes to Pharmacist: *Please review and pick correct strength-formulation from [employer] options. If intended option is not shown, discontinue and re-order from Quick Search*, Taking Gamunex-C 10% SOLUTION DIRECTED INTRAVENOUSLY EVERY 4 WEEKS , Notes to Pharmacist: *Please review and pick correct strength-formulation from [employer] options. If intended option is not shown, discontinue and re-order from Quick Search*, Taking DAPSONE TOPICAL 5% GEL 1 WILLIAM APPLIED TOPICALLY 2 TIMES A DAY , Notes to Pharmacist: *Please review for potential replacement for e-prescription and drug interaction check*, Taking Triamcinolone Acetonide 0.1% PASTE 1 WILLIAM ORALLY 2 TIMES A DAY (AFTER MEALS) , Notes to Pharmacist: *Please review and pick correct strength-formulation from [employer] options. If intended option is not shown, discontinue and re-order from Quick Search*, Taking Gabapentin 100 MG Capsule 1 cap(s) orally 3 times a day , Taking Unithroid 75 MCG (0.075 MG) TABLET , Notes to Pharmacist: *Please review and pick correct strength-formulation from [employer] options. If intended option is not shown, [...] *Please review and pick correct strength-formulation from [employer] options. If intended option is not shown, discontinue and re-order from Quick Search*, Taking Fluticasone-Salmeterol 500 MCG-50 MCG POWDER 1 INH INHALED 2 TIMES A DAY , Notes to Pharmacist: *Please review and pick correct strength-formulation from [employer] options. If intended option is not shown, discontinue and re-order from Quick Search*, Taking Arnuity Ellipta FUROATE 50 MCG POWDER DIRECTED INHALED EVERY 24 HOURS , Notes to Pharmacist: *Please review and pick correct strength-formulation from [facility] Administrationan options. If intended option is not shown, [...] , Taking Tavaborole 5 % Solution 1 william applied topically once a day , Taking Cyanocobalamin 1000 MCG/ML Solution inject 1000 mcg subcutaneously once weekly , Taking Mupirocin 2 % Ointment 1 william applied topically 3 times a day , Taking predniSONE 2.5 MG Tablet 1 tab(s) orally once a day , Notes to Pharmacist: only for flares, Medication List reviewed and reconciled with the patient * Allergies: A moxicillin, fentaNYL, Codeine, Amitriptyline HCl, sulfADIAZINE. Objective: * Vitals: H R: 80, BP: 154/80, Ht: 63, Wt: 202, BMI: 35.78. SPO2: 96%. * Examination: G eneral Examination: General n ormal, NAD, well nourished and hydrated, pleasant. Neck, thyroid : s upple. Heart: B P wnl, RSR, no murmurs. Lungs: n ormal, respirations easy with conversation and ambulation. Abdomen: n ormal, round, non-distended. Neurologic exam: u nremarkable. Extremities: u nremarkable. Peripheral pulses: n ormal (2+) bilaterally . Psych: o rientation to person, place & situation, appropriate judgment noted. Assessment: * Assessment: 1. T ype 2 diabetes mellitus with hyperglycemia - E11.65 (Primary) 2 . H yperlipidemia, unspecified - E78.5 3 . H ypothyroidism, unspecified - E03.9 ? 4 . O besity, unspecified - E66.9 5 . D ietary counseling and surveillance - Z71.3 Plan: * Treatment: 2. H ypothyroidism, unspecified Start Liothyronine Sodium Tablet, 5 MCG, 1 to 2 tablet on an empty stomach, Orally, once daily in afternoon, 90 days, 180, Refills 1. 3. O thers Notes:Assessment and Plan: Endocrine disordersPatient demonstrates stable thyroid function with satisfactory free T4 levels. Recent dexamethasone suppression test results are within normal range.Increase liothyronine dosage to 2 tablets in the afternoon.Schedule another dexamethasone suppression test.Continue current Unithroid 75 prescription.Arrange for blood work the day before the next appointment in January. Type 2 Diabetes MellitusPatient is currently well-managed on Mounjaro 12.5 mg, with stable weight.Increase Mounjaro dosage to 15 mg.Maintain current metformin therapy. Rheumatoid ArthritisPatient experiences discomfort related to RA, particularly during sleep.Continue with hydroxychloroquine and leflunomide as current treatment.Utilize prednisone 2.5 mg as needed for flare-ups.Maintain as-needed injections for joint pain management. Common Variable ImmunodeficiencyPatient is on a regular schedule of IgG infusions every 3 months, with reported good immune levels.Continue IgG infusions at the current interval.Discuss the possibility of port placement with a wire cutter, evaluating the risks and benefits.Explore the option of transitioning to subcutaneous IVIG administration. Vitamin B12 deficiencyPatient is on a regimen of weekly subcutaneous B12 injections, facing insurance challenges for needle coverage.Persist with the current method of B12 administration.Address insurance issues concerning the coverage of injection supplies. HypokalemiaRecent potassium levels are slightly low but above critical levels, with the patient reporting no symptoms.Monitor potassium levels.No immediate intervention required given the current potassium level is above 3.5. Follow-up:Schedule follow-up appointments as necessary to review treatment efficacy and lab results.Encourage patient to report any new symptoms or concerns that may arise. Spent 15 minutes preventative counseling patient on dietary recommendations and changes in setting of hyperglycemia- need to restrict refined sugars and processed foods and incorporate up to 150 minutes of moderate level activity weekly. Spent 25 minutes preparing to see the patient (ex review of tests/chart), obtaining and / or reviewing separately obtained history, performing a medically appropriate examination and/or evaluation, counseling and educating the patient/family/caregiver, ordering medications, tests, or procedures, referring and communicating with other health ocular care aide, documenting clinical information in the electronic or other health record, independently interpreting results and communicating results to the patient/family/caregiver and care coordinating patient plan. Patient alert and oriented x 4 and aware of discussion noted above and in agreeance to plan in management of type 2 DM/well controlled, hyperlipidemia, hypothyroidism, weight management/obesity. * Procedure Codes: 9 9401 P/M ONION FARMER, INDIV 15 MIN * Follow Up: 4 Months (Reason: labwork) * Billing Information: * Visit Code: 08190 Office Visit, Est Pt., Level 4. * Procedure Codes: 67282 P/M ONION FARMER, INDIV 15 MIN. * D PROTECTIVE SERVICES SPECIALIST Sign off status: Completed true * Provider: Anna Cardoso MD Date: 0 11/25/2024 Generated for Latisha kerns/Julienne/Rick on: 0 01/17/2025 07:25 AM CDT History and Physical Notes * HPI (History of Present Illness) Category Sub-Category Detail Notes Category Not es Interval Hx 59 yo female comes in for follow up in management of well controlled type 2 DM, hypothyroidism, dyslipidemia. at her last visit in Jul we continued unithroid 75 mcg daily and added liothyronine 5 mcg in afternoon and continued vitamin D 3 4000 IU daily. Continued on mounjaro 10 mg weekly along with metformin 500 mg twice daily with meals. Patient Karen reports ongoing fatigue, thermal dysregulation, and difficulty sleeping due to rheumatoid arthritis. She is currently managing her conditions with a variety of medications, including Mounjaro for type 2 diabetes, Unithroid and liothyronine for thyroid function, and IgG infusions for common variable immunodeficiency. Recent lab results show stable thyroid levels, good immune levels, and slightly low potassium. The patient experienced severe side effects from a recent medication change for rheumatoid arthritis and has since returned to her previous regimen. She continues to receive B12 injections and is considering a port placement for easier IgG infusion access. Patient reports ongoing fatigue, which worsens as the day progresses. She wakes up at 6:30 AM to have coffee with her . The patient experiences thermal dysregulation, requiring multiple layers of blankets due to feeling cold. She continues to receive IgG infusions every 3 months and currently has a sinus infection. The patient reports difficulty sleeping some nights due to rheumatoid arthritis discomfort. She no longer takes tramadol, instead using gabapentin as needed and Tylenol PM regularly. She experiences occasional anxiety, which can affect her sleep. The patient uses a CPAP for sleep apnea. The patient reports easy bruising. She continues to receive B12 injections, administering them subcutaneously in the stomach. She is currently taking Mounjaro 12.5 mg with no reported problems, and her weight has been stable around 198 lbs. The patient attempted to switch from leflunomide to another medication but experienced severe side effects, including uncontrollable vomiting and sweating for an hour and a half after taking it. She has since returned to her previous medication regimen. She takes prednisone 2.5 mg when her hands become puffy and painful, and receives injections in her knees, hip, and lower back as needed. Medical History - Immunologic disorder - Rheumatoid arthritis - Sleep apnea - Sinus infection (current) - Fatigue - Anxiety Current and Past Medications and Supplements - IgG (every 3 months) - Gabapentin (as needed) - Tylenol PM (regularly) - C-PAP (for sleep apnea) - B12 shots (subcutaneous, weekly) - Mounjaro 12.5mg - Leflunomide - Hydroxychloroquine - Losartan - Diltiazem - Unithroid 75mcg - Dapsone - Triamcinolone creams - Estradiol patch 12.5 (twice a week) - Metformin - Pravastatin - Spironolactone - Buspirone - Prednisone 2.5mg (as needed) - Liothyronine (1-2 tablets in the afternoon) Social History - Living situation: lives with - Diet: drinks coffee with flavoring, enjoys ice cream - Exercise: participates in water aerobics when weather permits - Sleep: uses CPAP for sleep apnea; some nights uncomfortable due to RA - Stress/Anxiety: reports experiencing anxiety at times Review of Systems - General: Fatigue, especially as the day progresses - Respiratory: Current sinus infection - Sleep: Some nights uncomfortable sleeping due to RA, uses CPAP for sleep apnea - Psychiatric: Experiences anxiety at times, can stress out over minor things - Hematologic: Bruises easily - Endocrine: Always tired, feels cold - Gastrointestinal: Experienced uncontrollable vomiting and sweating with a previous medication (now discontinued) - Musculoskeletal: Hands get puffy and hurt at times Labs from 11/05/24: H/H normal IGG 518 mg/dL Cr normal glucose 85 mg/dL LFT normal 197/115/69/89 TSH of 2.380 uIU/ml K 3.9 mmol/L FT4 of 1.58 ng/dL microalbumin normal progesterone low vit D 57.7 ng/ML FT3 of 3.1 pg/mL a1c 5% estradiol low DST of 1.07 ug/dl ACTH 15 pg/ml DHEAS 39 mcg/dL iron sat 23% Examination Category Sub-Category Detail Notes Category Not es General Examination Neck, thyroid : supple Heart: BP wnl, RSR, no murm urs Lungs: normal, respirations easy with conversation and ambulation Abdomen: normal, round, non-d istended Extremities: unremarkable General normal, NAD, well no urished and hydrated, pleasant Neurologic exam: unremarkable Peripheral pulses: normal (2+) bilatera lly Psych: orientation to perso n, place & situation, appropriate judgment noted
--- OUTSIDE RECORDS SUMMARY | 2025-01-17 07:26 | XMS_ITS ---
Author Organization [facility] Address [address] [facility] [place] [address] Care Team Providers Care Family Services Assistant Name Role Cordelia Roberts Primary Care Provider [phone] Encounters Encounter Location Date Provider Diagnosis [facility] [address] [place] [address] 11/24/2024 Cordelia Cardoso Plan Of Treatment Next Appt Details Provider Name:Cordelia Cardoso, 10:00:00 AM, [address] [place], [address], Progress Notes * Ena EMhDOB: [birth year] (59 yo F)Acc No.[id number]:11/24/2024 Patient: Karen PARISI :1965 A ge:59 Y S ex:Female Address:[address] [place] [address], [place] [address] * true * Date: Generated for Latisha kerns/Julienne/eTransmitting on: 0 01/17/2025 07:25 AM CDT
--- OUTSIDE RECORDS SUMMARY | 2025-01-17 07:26 | XMS_ITS | CONTINUITY OF CARE DOCUMENT ---
Author Name james ramirez Address Unknown Organization [facility] Address [address] [address] [place] [address] Phone [phone] Care Team Providers Care Supervisor [employer] Name Role Phone Alcides RODRIGUEZ, Cha Unavailable [phone] CARMELINA MENJIVAR MD Unavailable [phone] CARMELINA MENJIVAR MD Unavailable PROBLEMS Condition Status Date Provider Notes Family History of Hyperlipidemia: completed - Cha Mcgrath MD Family History of Hypertension: completed - To allison Mcgrath MD Hypothyroidism active Cha Mcgrath MD HTN essential active Cha Mcgrath MD CAD - LAD per CT, nml stress test 02/15 active Cha Mcgrath MD Asthma active Cha Mcgrath MD CHEST PAIN normal stress nuc lear 11/2021 active Cha Mcgrath MD Shortness of breath active Cha Mcgrath MD Rheumatoid arthritis active Cha Mcgrath MD Tobacco use, quit 22 years ago active Reina Mcgrath MD varicose veins active Cha Mcgrath MD Morbid obesity active Tonya Franco NP COPD active David Yap Sleep apnea, mild on CPAP active Jhon desai Diastolic dysfunction active Jhon Miles Exposure to COVID-19 coronav irus 12/2020 active Cha Mcgrath MD Pericardial effusion resolved 01/2021 active Cha Mcgrath MD Cardiology examination active Oli Tellez ENCOUNTERS Date Type Provider Location Encounter Diag nosis - In-person encounter Office Visit Cha Mcgrath MD [facility] - In-person encounter Office Visit Cha Mcgrath MD [facility] Cardiology examination - In-person encounter Office Visit Cha Mcgrath MD [facility] - In-person encounter Office Visit Cha Mcgrath MD [facility] - In-person encounter Office Visit Cha Mcgrath MD [facility] - In-person encounter Office Visit Cha Mcgrath MD [facility] - In-person encounter Office Visit Cha Mcgrath MD [facility] - In-person encounter Office Visit Cha Mcgrath MD [facility] - In-person encounter Office Visit Cha Mcgrath MD [facility] - In-person encounter Office Visit Cha Mcgrath MD [facility] Exposure to COVID-19 coronavirus ericardial effusion resolved 01/2021 - In-person encounter Office Visit Cha Mcgrath MD [facility] Sleep apnea, mild on CPAPDiastolic dysfunction - In-person encounter Office Visit Cha Mcgrath MD [facility] COPD - In-person encounter Office Visit Cha Mcgrath MD [facility] Family History of Hyperlipidemia:Family History of Hypertension:CAD - LAD per CT, nml stress test 02/15 - In-person encounter Office Visit Cha Mcgrath MD [facility] Morbid obesity - In-person encounter Office Visit Cha Mcgrath MD [facility] HypothyroidismHTN essentialCAD - LAD per CT, nml stress test 02/15AsthmaCHEST PAIN normal stress nuclear hortness of breathRheumatoid arthritisTobacco use, quit 22 years agovaricose veins VITAL SIGNS Date Observation Value Provider Body Mass Index (Ratio) 36.49 kg/m2 Jj Mcgrath MD pulse rate 83 /min Annia oliveira oxygen saturation, oximetry 97 % Annia Cardenas blood pressure, cuff size regular Br yadi Cardenas blood pressure, diastolic 90 mm[Hg] Br yadi Cardenas blood pressure, systolic 150 mm[Hg] Norma Cardenas weight E&M 206 [lb_av] Annia Barney s height E&M 63 [in_i] Annia Barney s Body Mass Index (Ratio) 37.02 kg/m2 Jj Mcgrath MD blood pressure, cuff size large Gaurang joseph Wheaton blood pressure, diastolic 88 mm[Hg] Gaurang joseph Luke blood pressure, systolic 132 mm[Hg] [facility] oxygen saturation, oximetry 94 % [facility]min [facility] weight E&M 209 [lb_av] [facility] respiratory rate E&M 12 /min [facility] height E&M 63 [in_i] [facility] Body Mass Index (Ratio) 35.07 kg/m2 Jj Mcgrath MD blood pressure, cuff size regular [facility] blood pressure, diastolic 97 mm[Hg] [facility] blood pressure, systolic 151 mm[Hg] [facility] oxygen saturation, oximetry 96 % [facility] respiratory rate E&M 16 /min Mindy M iller pulse rate 78 /min Mindy Luke weight E&M 198 [lb_av] Mindy Luke height E&M 63 [in_i] Mindy Luke Body Mass Index (Ratio) 39.14 kg/m2 Jj Mcgrath MD blood pressure, diastolic 73 mm[Hg] [facility] gerri Edgar blood pressure, systolic 143 mm[Hg] Sta ciro Edgar oxygen saturation, oximetry 94 % Karime Edgar pulse rate 72 /min Karime Edgar weight E&M 221 [lb_av] Karime Edgar respiratory rate E&M 18 /min Karime Juaquin tang height E&M 63 [in_i] Karime Edgar Body Mass Index (Ratio) 44.81 kg/m2 Jj Mcgrath MD blood pressure, cuff size regular Tani Lamar RN blood pressure, diastolic 84 mm[Hg] Tani Lamar RN blood pressure, systolic 142 mm[Hg] Quan Lamar RN Inhaled O2 2 L/min Quan Lamar RN oxygen saturation, oximetry 92 % Quan Lamar RN respiratory rate E&M 24 /min Quan jordan RN pulse rate 100 /min Quan Lamar RN weight E&M 253 [lb_av] Quan Lamar RN Body Mass Index (Ratio) 48.35 kg/m2 Jj Mcgrath MD Inhaled O2 3 L/min Lety patterson blood pressure, cuff size large Mi alfredito Neo blood pressure, diastolic 108 mm[Hg] Mi alfredito Larson blood pressure, systolic 201 mm[Hg] George jonny Larson oxygen saturation, oximetry 93 % Lety Larson respiratory rate E&M 16 /min Deborah Larson pulse rate 105 /min Lety patterson weight E&M 273 [lb_av] Lety patterson height E&M 63 [in_i] Lety patterson Body Mass Index (Ratio) 54.91 kg/m2 Jj Mcgrath MD blood pressure, diastolic 98 mm[Hg] Sa ra Enriquez blood pressure, systolic 151 mm[Hg] Mohsen a Enriquez oxygen saturation, oximetry 96 % Loren Enriquez respiratory rate E&M 21 /min Loren Si ms pulse rate 105 /min Loren Enriquez blood pressure, cuff size large Sa ra Enriquez Inhaled O2 2 L/min Loren Enriquez weight E&M 310 [lb_av] Loren Enriquez height E&M 63 [in_i] Loren Enriquez Body Mass Index (Ratio) 57.74 kg/m2 Jj Mcgrath MD blood pressure, diastolic 80 mm[Hg] Li nkLogic blood pressure, systolic 150 mm[Hg] Mayte kLogic blood pressure, cuff size regular Cy ntadonis Karan blood pressure, diastolic 80 mm[Hg] Cy ntadonis Karan blood pressure, systolic 150 mm[Hg] Razia ever Karan pulse rate 84 /min Magy Campbel l oxygen saturation, oximetry 96 % Magycorie Russo respiratory rate E&M 18 /min Magycorie Russo weight E&M 326 [lb_av] Magy Campbel l height E&M 63 [in_i] Magy Campbel l Body Mass Index (Ratio) 53.67 kg/m2 Jj Mcgrath MD Inhaled O2 2 L/min Argentina Kee blood pressure, cuff size regular Kr isty Vidhya blood pressure, diastolic 80 mm[Hg] Jimbo Kee blood pressure, systolic 150 mm[Hg] Du Kee pulse rate 98 /min Argentina Kee oxygen saturation, oximetry 96 % Argentina Kee respiratory rate E&M 20 /min Argentina Kee weight E&M 303 [lb_av] Argentina Kee height E&M 63 [in_i] Argentina Kee Body Mass Index (Ratio) 52.25 kg/m2 Jj Mcgrath MD blood pressure, cuff size regular Cy ruth ann Russo blood pressure, diastolic 78 mm[Hg] Ciro Russo blood pressure, systolic 142 mm[Hg] Razia Russo pulse rate 95 /min Magy Lugobel l oxygen saturation, oximetry 96 % Magy Russo respiratory rate E&M 18 /min Magy Russo weight E&M 295 [lb_av] Magy Campbel l height E&M 63 [in_i] Magy Campbel l Body Mass Index (Ratio) 52.96 kg/m2 Jj Mcgrath MD blood pressure, cuff size large Ke rri Gruenenfkathy blood pressure, diastolic 80 mm[Hg] Ke rri Gruenenfelder blood pressure, systolic 128 mm[Hg] Jose L Guillen oxygen saturation, oximetry 98 % Lana Guillen respiratory rate E&M 18 /min Lana delgado pulse rate 85 /min Lana ontiveros weight E&M 299 [lb_av] Lana Mayorga lder height E&M 63 [in_i] Lana Mayorga [facility] Body Mass Index (Ratio) 54.38 kg/m2 Jj Mcgrath MD pulse rate 92 /min Magy Carlin l blood pressure, diastolic 81 mm[Hg] Cy ruth ann Russo blood pressure, systolic 156 mm[Hg] Razia ever Russo blood pressure, cuff size regular Cy allaincorie Russo respiratory rate E&M 18 /min Magy Russo oxygen saturation, oximetry 99 % Magy Russo weight E&M 307 [lb_av] Magy Carlin height E&M 63 [in_i] Magy [facility] Body Mass Index (Ratio) 56.50 kg/m2 Jj Mcgrath MD respiratory rate E&M 16 /min [facility] blood pressure, diastolic 92 mm[Hg] To [facility] blood pressure, systolic 163 mm[Hg] [facility] oxygen saturation, oximetry 97 % [facility] pulse rate 87 /min [facility] weight E&M 319 [lb_av] [facility] height E&M 63 [in_i] [facility] Body Mass Index (Ratio) 57.92 kg/m2 Jj Mcgrath MD blood pressure, diastolic 84 mm[Hg] [facility] blood pressure, systolic 136 mm[Hg] Norma lynette Block oxygen saturation, oximetry 96 % Argelia Block respiratory rate E&M 16 /min Brittan Block pulse rate 78 /min Argelia Block weight E&M 327 [lb_av] Argelia Block height E&M 63 [in_i] Argelia [facility] Body Mass Index (Ratio) 57.56 kg/m2 Jj Mcgrath MD blood pressure, resting Yes Jefferson a Estephania blood pressure, diastolic 86 mm[Hg] Danial ica Isae blood pressure, systolic 150 mm[Hg] Rosalba GaminoDariel oxygen saturation, oximetry 99 % Martita Mosse pulse rate 78 /min Martita Navarroe weight E&M 325 [lb_av] Martita Navarroe height E&M 63 [in_i] Martita Vieira ALLERGIES Allergy Name Onset Date Reaction Criticality Status FENTANYL CITRATE Low Criticality act shirley CODEINE vomitting Low Criticality active SULFA hives hives Low Criticality active AMOXICILLIN hives hives Low Criticality active AMITRIPTYLINE unable to urinate Low Criticality active HISTORY OF MEDICATION USE Medication Status Instructions Dates Provider Indications Com ments spironolactone 50 mg tablet active Take 1 tablet by mouth once a day 12/21 Lana Guillen spironolactone 50 mg tablet completed TAKE 1 TABLET DAILY 12/12 - 12/21 Lana Guillen diltiazem HCl (Cardizem CD) 120 mg capsule,extended release 24hr active TAKE 1 CAPSULE DAILY 07/18 Harriet Carlos RN losartan 100 mg tablet active Take 1 tablet by mouth once a day 06/13 Lana Guillen spironolactone 50 mg tablet completed Take 1 tablet by mouth once a day 06/13 - 12/12 Angie Arenashing refill per faxed request from pharmacy pravastatin 20 mg tablet active TAKE 1 TABLET DAILY 12/21 Vero Yeboah 10 mg/0.5 mL pen injector active Oli Tellez spironolactone 50 mg tablet completed Take 1 tablet by mouth once a day TAKE 1 TABLET BY MOUTH DAILY 07/23 - 06/13 Lana Guillen refill per faxed request from pharmacy pravastatin 20 mg tablet completed TAKE 1 TABLET BY MOUTH DAILY 05/03 - 12/21 Flor Negrete losartan 100 mg tablet completed TAKE 1 TABLET BY MOUTH DAILY 02/03 - 06/13 Lana Mindy spironolactone 50 mg tablet completed TAKE 1 TABLET BY MOUTH DAILY 12/28 - 12/05 Argelia Dudley refill per faxed request from pharmacy diltiazem HCl (Cardizem CD) 120 mg capsule,extended release 24hr completed Take 1 capsule by mouth once a day 11/30 - 07/18 Harriet Carlos RN spironolactone 50 mg tablet completed TAKE 1 TABLET BY MOUTH DAILY - 12/27 Flakita Gil ondansetron HCl 4 mg tablet active Take 1 tablet by mouth every six hours as needed 04/12 Argentina Kee #5, 1 days supply, Prescribed by DESIRE URIAS, Filled 04/12/2021 celecoxib 200 mg capsule active Take 1 tablet by mouth twice a day 01/05 Argentina Kee #60, 30 days supply, Prescribed by SALOMON MOYA, Filled 04/13/2021 spironolactone 50 mg tablet completed ONE TAB. DAILY 07/27 - Mikki Patiño Synthroid 88 mcg tablet active Take 1 tablet by mouth once a day 03/26 Oli Tellez #30, 30 days supply, Prescribed by ROSEY, NOT PROVIDED, Filled 07/25/2020 leflunomide 20 mg tablet active Take 1 tablet by mouth once a day 03/04 Magy Russo #27, 27 days supply, Prescribed by CRYSTAL BURNETTE, Filled 06/22/2020 omeprazole 20 mg capsule,delayed release(DR/EC) active Take 1 capsule by mouth once a day 04/14 Magy Russo #28, 28 days supply, Prescribed by CRYSTAL BURNETTE, Filled 06/28/2020 Vitamin D3 50 mcg (2,000 unit) capsule active Take 2 capsule by mouth every morning 04/10 Magy Russo #60, 30 days supply, Prescribed by SHERIF CURRIE, Filled 07/07/2020 Spiriva Respimat 1.25 mcg/actuation mist active Inhale 2 puff by mouth once a day 05/04 Magy Russo #4, 30 days supply, Prescribed by JENAE WARREN, Filled 07/07/2020 Symbicort 160-4.5 mcg/actuation HFA aerosol inhaler active Inhale 2 puff by mouth every twelve hours 05/25 Magy Russo #10.2, 30 days supply, Prescribed by JENAE WARREN, Filled 07/08/2020 loratadine 10 mg tablet active Take 1 tablet by mouth once a day as needed 07/08 Magy Russo #30, 30 days supply, Prescribed by CARMELINA MENJIVAR, Filled 07/08/2020 fenofibrate nanocrystallized 48 mg tablet completed Take 1 tablet by mouth once a day 07/16 - 12/05 Argelia Dudley #30, 30 days supply, Prescribed by CARMELINA MENJIVAR, Filled 07/16/2020 metformin 500 mg tablet extended release 24 hr active Take 1 by mouth once a day 04/10 Oli Tellez #4, 2 days supply, Prescribed by ROSEY, NOT PROVIDED, Filled 07/24/2020 diclofenac sodium 75 mg tablet,delayed release (DR/EC) completed Take 1 tablet by mouth twice a day 03/31 - 04/04 Oli Tellez #4, 2 days supply, Prescribed by CRYSTAL BURNETTE, Filled 07/24/2020 folic acid 1 mg tablet completed Take 1 tablet by mouth once a day 06/03 - 12/03 Oli Tellez #120, 30 days supply, Prescribed by YOMAIRA, ALEX PROVIDED, Filled 07/25/2020 Ozempic 0.25 mg or 0.5 mg(2 mg/1.5 mL) pen injector completed Inject subcutaneously every morning 04/10 - 12/05 Argelia Dudley #1, 28 days supply, Prescribed by ROSEY, NOT PROVIDED, Filled 07/26/2020 pravastatin 20 mg tablet completed 1 tablet by mouth once a day 11/25 - 05/03 Karoline Otis hydroxychloroquin e 200 mg tablet active tablet by mouth 11/25 Magy Russo ASPIRIN ADULT LOW DOSE 81 MG ORAL TABLET DELAYED RELEASE completed One Tab By Mouth Daily 02/05 - 11/25 Humzajaydon Rios HYDROCHLOROTHIAZI DE 25 MG ORAL TABLET completed ONE TAB DAILY 02/05 - 07/27 David Yap losartan 100 mg tablet completed Take 1 tablet by mouth once a day 02/05 - 02/03 Cha Mcgrath MD CYMBALTA 30 MG ORAL CAPSULE DELAYED RELEASE PARTICLES completed 1 tab 1x daily 02/05 - 11/25 Tito Rios valacyclovir 1 gram tablet active 1 tablet by mouth three times a day 01/16 Magy Russo Advair Diskus 100-50 mcg/dose blister with device active 1 puff twice a day 01/16 Magy Russo ProAir HFA 90 mcg/actuation HFA aerosol inhaler active 1 puff as needed 12/17 Magy Russo #8, 18 days supply, Prescribed by OTTO , Filled 01/14/2019 SYNTHROID 25 MCG ORAL TABLET completed one tab daily 01/13 - 05/17 Lana Guillen #15, 30 days supply, Prescribed by ROSEY, Filled 01/14/2019 montelukast 10 mg tablet active 1 tablet by mouth once a day 12/17 Magy Russo #30, 30 days supply, Prescribed by OTTO , Filled 01/14/2019 fluticasone propionate 50 mcg/actuation spray,suspension active 1 spray into both nostrils once a day 12/17 Magy Russo #16, 30 days supply, Prescribed by OTTO , Filled 01/14/2019 ENALAPRIL-HYDROCH LOROTHIAZIDE 10-25 MG ORAL TABLET completed one tab daily 12/17 - 02/05 Tonya Franco NP #30, 30 days supply, [facility] F[facility] 01/14/2019 SOCIAL HISTORY Date Observation Value Provider smoking status Former smoker Oli Jacobs i smoking status Former smoker Oli Jacobs i smoking status Former smoker Oli Jacobs i social history E&M S moking History: Salvador vega is a former smoker. Oli Tellez social history reviewed E&M revi ewed - no changes required Oli Tellez smoking status Former smoker Karime Hernández social history reviewed E&M revi ewed - no changes required Argelia Dudley smoking status Former smoker Lety oneill social history reviewed E&M revi ewed - no changes required Oli Tellez social history reviewed E&M revi ewed - no changes required Cha Mcgrath MD social history E&M S moking History: Salvador vega is a former smoker. Oli Tellez smoking status Former smoker Magy harper social history reviewed E&M revi ewed - no changes required Oli Tellez social history reviewed E&M revi ewed - no changes required Oli Tellez social history E&M S moking History: Salvador vega is a former smoker. Cha Mcgrath MD social history reviewed E&M revi ewed - no changes required Cha Mcgrath MD smoking status Former smoker Magy harper social history E&M S moking History: Salvador vega is a former smoker. Jhon Miles social history reviewed E&M revi ewed - no changes required Jhon Miles smoking status Former smoker Lana Charlette daniel smoking status Former smoker David Krystian hankins social history E&M S moking History: Salvador vega is a former smoker. David Yap social history reviewed E&M revi ewed - no changes required David Yap social history E&M S moking History: Salvador vega is a former smoker. Cha Mcgrath MD social history reviewed E&M revi ewed - no changes required Cha Mcgrath MD smoking status Former smoker Tito Rios social history E&M S moking History: Salvador vega is a former smoker. Cha Mcgrath MD social history reviewed E&M revi ewed - no changes required Cha Mcgrath MD smoking status Former smoker Argelia Sohail monroe social history E&M S moking History: Salvador vega is a former smoker. Cha Mcgrath MD social history reviewed E&M revi ewed - no changes required Cha Mcgrath MD number of grandchildren Cha Mcgrath MD T dada Mcgrath MD smoking status Former smoker Martita Krystyna billingsDariel FUNCTIONAL STATUS Date Observation Value Provider HRA, CV Assess/Plan, Angina (inactive) Management Plan continue current therapy Oli Ahmedzai HRA, CV Assess/Plan, Angina (inactive) Management Plan continue current therapy Oli Ahmedzai HRA, CV Assess/Plan, Angina (inactive) Management Plan continue current therapy Oli Ahmedzai HRA, CV Assess/Plan, Angina (inactive) Management Plan continue current therapy Oli Ahmedzai HRA, CV Assess/Plan, Angina (inactive) Management Plan continue current therapy Argelia Dudley HRA, CV Assess/Plan, Angina (inactive) Management Plan continue current therapy Oli Ahmedzai HRA, CV Assess/Plan, Angina (inactive) Management Plan continue current therapy Cha Mcgrath MD HRA, CV Assess/Plan, Angina (inactive) Management Plan continue current therapy Oli Ahmedzai HRA, CV Assess/Plan, Angina (inactive) Management Plan continue current therapy Oli Ahmedzai HRA, CV Assess/Plan, Angina (inactive) Management Plan continue current therapy Jhon Miles HRA, CV Assess/Plan, Angina (inactive) Management Plan continue current therapy Cha Mcgrath MD HRA, CV Assess/Plan, Angina (inactive) Management Plan continue current therapy Cha Mcgrath MD HRA, CV Assess/Plan, Angina (inactive) Management Plan continue current therapy Cha Mcgrath MD FAMILY HISTORY Family Member Condition Mother Family History of Hy pertension: Mother Family History of Hy perlipidemia: Mother Family History of Di abetes: INSURANCE PROVIDERS Payer name Policy type / Coverage type [place] [employer] [id number] Commercial insurance [facility] [id number] MEDICARE SEC[place] Medicare [id number] ADVANCE DIRECTIVES Name Date DISCUSSED - NO DECISION MADE TREATMENT PLAN Date Name Performer [id number],S, Oli Ahmedza i [id number],S, Oli Ahmedza i [id number],S, Oli Ahmedza i [id number],S, Oli Ahmedza i [id number],S, Oli Ahmedza i [id number],S, Oli Ahmedza i [id number],S, Oli Ahmedza i [id number],B, Argelia Mohinder obsmeyer [id number],S, Argelia Vines obsmeyer [id number],S, Argelia Mohinder obsmeyer [id number],S, Argelia Mohinder obsmeyer [id number],S, Argelia Mohinder obsmeyer [id number],S, Oli Ahmedza i [id number],B, Oli Ahmedza i [id number],S, Oli Ahmedza i [id number],S, Oli Ahmedza i [id number],S, Oli Ahmedza i [id number],S, Cha Mcgrath MD [id number],S, Cha Mcgrath MD [id number],S, Cha Mcgrath MD [id number],S, Cha Mcgrath MD [id number],B, Cha Mcgrath MD [id number],S, Oli Ahmedza i [id number],S, Oli Ahmedza i [id number],S, Oli Ahmedza i [id number],S, Oli Ahmedza i [id number],S, Oli Ahmedza i [id number],W, Oli Ahmedza i [id number],S, Oli Ahmedza i [id number],S, Oli Ahmedza i [id number],S, Oli Ahmedza i [id number],S, Oli Ahmedza i [id number],S, Oli Ahmedza i [id number],B, Oli Ahmedza i [id number],S, Oli Ahmedza i [id number],S, Oli Ahmedza i [id number],S, Oli Ahmedza i [id number],S, Oli Jacobs i [id number],S, Oli Jacobs i [id number],S, Oli Jacobs i [id number],S, Oli Jacobs i [id number],S, Oli Jacobs i [id number],S, Oli Jacobs i [id number],S, Oli Jacobs i [id number],S, Oli Jacobs i Cardiology: H er updated medication list for this problem includes: Diltiazem Hcl (cardizem Cd) 120 Mg Capsule,extended Release 24hr (Diltiazem hcl (cardizem cd)) ..... Take 1 capsule daily Losartan 100 Mg Tablet (Losartan) ..... Take 1 tablet by mouth once a day Spironolactone 50 Mg Tablet (Spironolactone) ..... Take 1 tablet by mouth once a day T his visit has been a part of the consistent, comprehensive, and ongoing management of the chronic medical condition(s) listed above for the patient. Cha Mcgrath MD Cardiology Cha Mcgrath MD Cardiology Cha Mcgrath MD Cardiology: H er updated medication list for this problem includes: Diltiazem Hcl (cardizem Cd) 120 Mg Capsule,extended Release 24hr (Diltiazem hcl (cardizem cd)) ..... Take 1 capsule daily Losartan 100 Mg Tablet (Losartan) ..... Take 1 tablet by mouth once a day Spironolactone 50 Mg Tablet (Spironolactone) ..... Take 1 tablet by mouth once a day Cha Mcgrath MD Cardiology: H er updated medication list for this problem includes: Advair Diskus 100-50 Mcg/dose Blister With Device (Fluticasone propion-salmeterol) ..... 1 puff twice a day Proair Hfa 90 Mcg/actuation Hfa Aerosol Inhaler (Albuterol sulfate) ..... 1 puff as needed Spiriva Respimat 1.25 Mcg/actuation Mist (Tiotropium bromide) ..... Inhale 2 puff by mouth once a day Symbicort 160-4.5 Mcg/actuation Hfa Aerosol Inhaler (Budesonide-formoterol) ..... Inhale 2 puff by mouth every twelve hours Montelukast 10 Mg Tablet (Montelukast) ..... 1 tablet by mouth once a day Cha Mcgrath MD Cardiology: H er updated medication list for this problem includes: Diltiazem Hcl (cardizem Cd) 120 Mg Capsule,extended Release 24hr (Diltiazem hcl (cardizem cd)) ..... Take 1 capsule daily Cha Mcgrath MD Cardiology Cha Mcgrath MD Cardiology: H er updated medication list for this problem includes: Synthroid 88 Mcg Tablet (Levothyroxine) ..... Take 1 tablet by mouth once a day Oli Tellez Cardiology: H er updated medication list for this problem includes: Losartan 100 Mg Tablet (Losartan) ..... Take 1 tablet by mouth once a day Spironolactone 50 Mg Tablet (Spironolactone) ..... Take 1 tablet by mouth once a day Diltiazem Hcl 120 Mg Capsule,extended Release 24hr (Diltiazem hcl) ..... Take 1 capsule by mouth once a day Oli Tellez [facility]: H er updated medication list for this problem includes: Losartan 100 Mg Tablet (Losartan) ..... Take 1 tablet by mouth once a day Spironolactone 50 Mg Tablet (Spironolactone) ..... Take 1 tablet by mouth once a day Diltiazem Hcl 120 Mg Capsule,extended Release 24hr (Diltiazem hcl) ..... Take 1 capsule by mouth once a day Olihari Tellez Cardiology [facility] Ahmedzai Cardiology: H er updated medication list for this problem includes: Diltiazem Hcl 120 Mg Capsule,extended Release 24hr (Diltiazem hcl) ..... Take 1 capsule by mouth once a day Oli Ahmedzai Cardiology Oli Ahmedzai Cardiology Oli Ahmedzai Cardiology Oli Ahmedzai Cardiology Oli Ahmedzai Cardiology Oli Ahmedzai Cardiology Oli Ahmedzai Cardiology Oli Ahmedzai Cardiology Oli Ahmedzai Cardiology Oli Ahmedzai Cardiology Oli Ahmedzai Cardiology Oli Ahmedzai Cardiology Oli Ahmedzai Cardiology Argelia Jacobsm eyer Cardiology Argelia Jacobsm eyer Cardiology Argelia Jacobsm eyer Cardiology Argelia Jacobsm eyer Cardiology Argelia Jacobsm eyer Cardiology Oli Ahmedzai Cardiology Oli Ahmedzai Cardiology Oli Ahmedzai Cardiology Oli Ahmedzai Cardiology Oli Ahmedzai Telehealth needs 6mo f/up - appt scheduled Cha Mcgrath MD Telehealth needs 6mo f/up - appt scheduled Cha Mcgrath MD Telehealth needs 6mo f/up - appt scheduled Cha Mcgrath MD Telehealth needs 6mo f/up - appt scheduled Cha Mcgrath MD Telehealth needs 6mo f/up - appt scheduled Cha Mcgrath MD Cardiology Oli Ahmedzai Cardiology Oli Ahmedzai Cardiology Oli Ahmedzai Cardiology Oli Ahmedzai Cardiology Oli Ahmedzai Cardiology Cha Mcgrath MD Telehealth Oli Ahmedzai Telehealth Oli Ahmedzai Telehealth Oli Ahmedzai Telehealth Oli Ahmedzai Telehealth Oli Ahmedzai Telehealth Oli Ahmedzai Cardiology Oli Ahmedzai Cardiology Oli Ahmedzai Cardiology Oli Ahmedzai Cardiology Oli Ahmedzai Cardiology Oli Ahmedzai Cardiology Oli Ahmedzai Cardiology Loi Ahmedzai Cardiology Oli Ahmedzai Cardiology Oli Ahmedzai Cardiology Oli Ahmedzai Cardiology Oli Ahmedzai Cardiology follow up Cha gonzalez MD Cardiology follow up Cha gonzalez MD Cardiology follow up Cha gonzalez MD Cardiology follow up Cha gonzalez MD Cardiology follow up Cha gonzalez MD Cardiology follow up Cha gonzalez MD Cardiology Follow up [facility] Cardiology Follow up [facility] Cardiology Follow up [facility] Cardiology Follow up [facility] Card[facility] Follow up [facility] Card[facility] Follow up [facility] Card[facility] Follow up [facility] Cardiology Follow up [facility] Telehealth David Yap Telehealth [facility] Telehealth [facility] Telehealth [facility] Telehealth [facility]health [facility]Echo LVEF 60% 07/2020 David Yap Cardiology follow up :Check home sleep. David Yap Cardiology follow up : B P today: 156/81 P rior BP: 163/92 (11/25/2019) The following medications were removed from the medication list: Hydrochlorothiazide 25 Mg Oral Tablet (Hydrochlorothiazide) ..... One tab daily Her updated medication list for this problem includes: Losartan Potassium 100 Mg Oral Tablet (Losartan potassium) ..... Take one tablet daily David Marely Cardiology follow up David [place] pam Cardiology follow up [facility] Cardiology follow up [facility] Cardiology Cha Mcgrath MD Cardiology Cha Mcgrath MD Cardiology Cha Mcgrath MD Cardiology Cha Mcgrath MD Cardiology Cha Mcgrath MD Cardiology Cha Mcgrath MD Cardiology Cha Mcgrath MD Cardiology:Weight loss and exerc ise encouraged. Tonya Franco NP Cardiology: B P today: 136/84 P rior BP: 150/86 (01/16/2019) The following medications were removed from the medication list: Enalapril-hydrochlorothiazide 10-25 Mg Oral Tablet (Enalapril-hydrochlorothiazide) ..... One tab daily Her updated medication list for this problem includes: Hydrochlorothiazide 25 Mg Oral Tablet (Hydrochlorothiazide) ..... One tab daily Losartan Potassium 50 Mg Oral Tablet (Losartan potassium) ..... Take one tablet daily Tonya Franco NP Cardiology Tonya Franco NP Cardiology Tonya Franco PRODUCTION EDITOR Cardiology:Venous U/ S 01/31/19: 1 . No evidence of a deep vein thrombosis of the lower extremities bilaterally. 2 . Significant venous insufficiency of the greater saphenous vein bilaterally. 3 . Venous insufficiency of the left sapheno femoral junction. Tonya Franco PRODUCTION EDITOR Cardiology:Could be attributed to deconditioning vs. asthma vs. ACEI induced cough. W ill D/C enalapril. S tart losartan 50 mg + HCTZ 25 mg. The following medications were removed from the medication list: Enalapril-hydrochlorothiazide 10-25 Mg Oral Tablet (Enalapril-hydrochlorothiazide) ..... One tab daily Her updated medication list for this problem includes: Hydrochlorothiazide 25 Mg Oral Tablet (Hydrochlorothiazide) ..... One tab daily Losartan Potassium 50 Mg Oral Tablet (Losartan potassium) ..... Take one tablet daily Tonya Franco PRODUCTION EDITOR Cardiology Cha Mcgrath MD Date Name Stress Regadenoson Monitor - Telemetry (Mobile Cardiac) Complete Echo Stress Regadenoson Sleep Study Home Venous Doppler Bilat eral LE - Reflux Stress Regadenoson Complete Echo HISTORY OF PROCEDURES Procedure Date Procedure Name Provider Procedure Notes S tatus Complex e/m visit add on Cha Mcgrath MD completed Complex e/m visit add on Cha Mcgrath MD completed EKG Cha Mcgrath MD completed EKG Cha Mcgrath MD completed Event Monitor Cha Mcgrath MD comple estephania EKG Cha Mcgrath MD completed EKG Cha Mcgrath MD completed Regadenoson, 4 units Cha Mcgrath MD completed Cardiolite, 2 units Cha Mcgrath MD completed SPECT Images Cha Mcgrath MD complet ed Stress EKG Cha Mcgrath MD completed EKG Cha Mcgrath MD completed
--- OUTSIDE RECORDS SUMMARY | 2025-01-17 07:27 | XMS_ITS | Referral Summary ---
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
--- OUTSIDE RECORDS SUMMARY | 2025-01-17 07:27 | XMS_ITS | Clinical Summary ---
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
--- OUTSIDE RECORDS SUMMARY | 2025-01-17 07:27 | XMS_ITS | Data Portability ---
Author Organization [place] [facility] [place], Main Office Address [address] [place] [address] Care Team Providers Care Scalehouse Attendant Name Role Phone CARMELINA SOLIS Primary Care Provider CARMELINA SOLIS Referring Provider TANIA MOODY Rural Sociologist RADHA NICHOLS Plastic/Reconstructive Surgeon CHA YANG Liability Claims Adjuster JENAE ALFONSO Tavern Operator Assessment Encounter Date Assessment Date Assessment LastModified by Organization Details LastModified Time 01/22/2024 01/22/2024 05/12/2023: GFR 57, gluc 116 A1C 4.9 09/12/2023: CMP/Lipids/TS H/FT4: WNL A1C 4.8 WBC 4.0L 01/15/2024: Labs Stable 45 minutes spent with the patient dimitri Not available 01/22/2024 11:33:00 05/29/2024 05/29/2024 05/12/2023: GFR 57, gluc 116 A1C 4.9 09/12/2023: CMP/Lipids/TS H/FT4: WNL A1C 4.8 WBC 4.0L 01/15/2024: Labs Stable 05/20/2024: A1C 5.0 45 minutes spent with the patient dimitri Not available 05/29/2024 17:18:49 07/15/2024 07/15/2024 05/12/2023: GFR 57, gluc 116 A1C 4.9 09/12/2023: CMP/Lipids/TS H/FT4: WNL A1C 4.8 WBC 4.0L 01/15/2024: Labs Stable 05/20/2024: A1C 5.0 06/13/2024: Dr Cardoso GFR 56 WBC 4.4 [email or web address] Not available 07/15/2024 13:56:22 09/16/2024 09/16/2024 05/12/2023: GFR 57, gluc 116 A1C 4.9 09/12/2023: CMP/Lipids/TS H/FT4: WNL A1C 4.8 WBC 4.0L 01/15/2024: Labs Stable 05/20/2024: A1C 5.0 06/13/2024: Dr Cardoso GFR 56 WBC 4.4 09/04/2024: Stable Not available 09/16/2024 19:16:28 Plan of Treatment Reminders Order Date Submit Date Provider Last Modified By Organization Details Last Modified Time Details Appointments Any 15 2024 09:00A M Carmelina dean MD Not available Not available Not available Lab lipid panel, serum 2023 024 [facility], [address] [place] [address] Rd, [address], [place], [address], 11/03/2024 08:12:27 CMP, serum or plasma 2023 024 [facility], [address] [place] [address] Rd, [address], [place], [address], 11/03/2024 08:12:27 CBC w/ auto diff 2023 024 [facility], [address] [place] [address] Rd, [address], [place], [address], 11/03/2024 08:12:27 TSH + free T4, serum 2023 024 [facility], [address] [place] [address] Rd, [address], [place], [address], 11/03/2024 08:12:27 vitamin D, 25-hydr oxy, total, serum [address], [address] [place] [address] Rd, [address], [place], [address], 09/16/2024 10:53:44 HbA1c (hemogl obin A1c), blood 2023 024 [facility], [address], [address], [place], [address], 11/03/2024 08:12:27 microal bumin, urine [address], [address], [address], [place], [address], 09/16/2024 10:53:43 lipid panel, serum 2023 024 [facility], [address], [address], [place], [address], 09/04/2024 12:15:42 CMP, serum or plasma 2023 024 [facility], [address], [address], [place], [address], 09/04/2024 12:15:42 CBC w/ auto diff 2023 024 [facility], [address], [address], [place], [address], 09/04/2024 12:15:43 TSH + free T4, serum 2023 024 [facility], [address], [address], [place], [address], 09/04/2024 12:15:43 vitamin D, 25-hydr oxy, total, serum [address], [address], [address], [place], [address], 01/14/2025 11:12:18 HbA1c (hemogl obin A1c), blood [address], [address], [address], [place], [address], 01/14/2025 11:12:18 microal bumin, urine [address], [address] [facility] [address], [address], [place], [address], 01/14/2025 11:12:18 lipid panel, serum 2023 024 [facility], [address] [facility] [address], [address], [place], [address], 06/13/2024 12:09:39 CMP, serum or plasma 2023 024 [facility], [address] [facility] [address], [address], [place], [address], 06/13/2024 12:09:39 CBC w/ auto diff 2023 024 [facility], [facility] [address], [address], [place], [address], 06/03/2024 09:40:11 TSH + free T4, serum 2023 024 [facility], [facility] [address], [address], [place], [address], 06/13/2024 12:09:39 vitamin D, 25-hydr oxy, total, serum 2023 024 [facility], [facility] [address], [address], [place], [address], 06/13/2024 12:09:39 HbA1c (hemogl obin A1c), blood 2023 024 [facility], [facility] [address], [address], [place], [address], 06/13/2024 12:09:39 microal bumin, urine [address], [facility] [address], [address], [place], [address], 11/25/2024 14:09:53 vitamin D, 25-hydr oxy, total, serum [address], [address] [place] [address] Rd, [address], [place], [address], 07/22/2024 09:49:14 HbA1c (hemogl obin A1c), blood [address], [address] [place] [address] Rd, [address], [place], [address], 07/22/2024 09:49:13 microal bumin, urine [address], [address] [place] [address] Rd, [address], [place], [address], 07/22/2024 09:49:14 lipid panel, serum [address], [address] [place] [address] Rd, [address], [place], [address], 07/22/2024 09:49:14 CMP, serum or plasma [address], [address] [place] [address] Rd, [address], [place], [address], 07/22/2024 09:49:14 CBC w/ auto diff [address], [address] [place] [address] Rd, [address], [place], [address], 07/22/2024 09:49:14 TSH + free T4, serum [address], [address] [place] [address], [address], [place], [address], 07/22/2024 09:49:14 Referral hematol ogist referra l 2023 024 Tania Moody MD, [address], [place], [address], 09/16/2024 17:52:12 plastic surgeon referra l 2023 024 [email or web address] Radha Nichols MD, [address] [place], [address], 09/16/2024 17:52:56 cardiol ogist referra l 2023 024 [email or web address] [place], [address], [address], [place], [address], 09/16/2024 17:53:49 podiatr ist referra l 2023 024 [email or web address] Jhon Adair DPM, [address] [facility], [address], [place], [address], 09/16/2024 17:54:38 diabeti c ophthal mology referra l 2023 024 Andra Baum MD, [address] [facility], [address], [place], [address], 09/16/2024 17:54:39 endocri nology referra l 2023 024 [email or web address] [place], [address], [place], [address], 09/16/2024 17:54:39 hematol ogist referra l 2023 024 [email or web address] 2 Tania Moody MD, [address], [place], [address], 01/13/2025 08:33:00 plastic surgeon referra l 2023 024 [email or web address] 2 Not available 01/13/2025 08:33:03 cardiol ogist referra l 2023 024 [email or web address] [place], [address], [facility] [address], [place], [address], 08/14/2024 08:12:26 ENT surgery referra l 2023 024 [email or web address] 2 Jenae Alfonso, [address] [facility], [place], [address], 01/13/2025 08:33:02 podiatr ist referra l 2023 024 [email or web address] 2 Jhon Adair DPM, [address] [facility], [address], [place], [address], 01/13/2025 08:32:57 diabeti c ophthal mology referra l 2023 024 [email or web address] 2 Andra Baum MD, [address] [facility] [address], [place], [address], 01/13/2025 08:32:58 endocri nology referra l 2023 024 [email or web address] 2 [place], [address] [facility], [place], [address], 01/13/2025 08:33:01 hematol ogist referra l 2023 024 [email or web address] Tania Moody MD, [address], [place], [address], 12/23/2024 18:01:43 podiatr ist referra l 2023 024 [email or web address] Jhon Adair DPM, [address] [facility], [address], [place], [address], 11/25/2024 14:10:12 diabeti c ophthal mology referra l 2023 024 [email or web address] Andra Baum MD, [address] [facility] [address], [place], [address], 11/25/2024 14:10:13 ENT surgery referra l 2023 024 MICHAEL Alfonso, [address] [facility], [place], [address], 07/09/2024 18:12:26 endocri nology referra l 2023 024 [email or web address] [place], [address] , [place], [address], 12/23/2024 18:01:44 hematol ogist referra l 2023 024 [email or web address] Tania Moody MD, [address], [place], [address], 02/19/2024 10:43:43 plastic surgeon referra l [address] [facility], [address], [address], [place], [address], 07/22/2024 09:50:18 podiatr ist referra l 2023 024 Jhon Adair DPM, [address] [facility], [facility] [address], [place], [address], 08/19/2024 09:12:09 diabeti c ophthal mology referra l 2023 024 [email or web address] Andra Baum MD, [address] [facility] [address], [place], [address], 07/22/2024 09:50:43 Procedures colonos copy screeni ng (PROC) 2023 024 [email or web address] Galo Hernandez MD, [address] [place] [address] Route [facility], [address], [address], 09/16/2024 17:50:57 colonos copy screeni ng (PROC) 2023 024 [email or web address] Galo Hernandez MD, [address] [address], [facility] [address], [place], [address], 01/13/2025 09:04:07 colonos copy screeni ng (PROC) 2023 024 [email or web address] Galo Hernandez MD, [address] [place] [address] Route [facility], [facility] [address], [place], [address], 11/25/2024 14:11:39 Surgeries None recorde d. Imaging DEXA, axial skeleto n [address], [address] [place] [address], [address], 09/17/2024 16:51:27 XR, ribs, unilate ral, w/ PA chest 2023 024 MICHAEL Not available 07/15/2024 10:22:14 MAMMO, screeni ng, digital , bilater al [address], [address] [place] [address], [place], [address], 11/25/2024 18:05:45 US, breast, unilate ral [address] ([employer]), [address] [place], [address], 08/14/2024 08:12:50 MAMMO, diagnos tic, bilater al [address], [address] [place] [address], [address], 11/25/2024 18:05:38 DEXA, axial skeleto n [address], [address] [place] [address], [address], 09/17/2024 16:49:20 MAMMO, screeni ng, digital , bilater al [address], [address] [place] [address], [address], 11/25/2024 18:05:26 DEXA, axial skeleto n [address], [address] [place] [address], [address], 09/17/2024 16:51:23 MAMMO, screeni ng, digital , bilater al [email or web address] [place] [address] ([employer]), [address] [place], [address], 07/22/2024 09:49:40 XR, chest, 2 view - Bony non tender swellin g located at the medial L clavicl e vs R 2022 023 [facility], [address] [place] [address], [place], [address], 10/16/2023 10:35:07 Medication Orders None recorde d. Patient TargetsNo targets recorded. Patient InstructionsNo instructions recorded. Reason for Referral Final Operations Technician Referral for Type 2 diabetes mellitus without complication Referring Physician: Carmelina Solis Internal Medicine, Encounter Date: 01/22/2024 Diabetic Ophthalmology Refer ral for Type 2 diabetes mellitus without complication Referring Physician: Carmelina Solis Internal Medicine, Encounter Date: 01/22/2024 Referring Physician: Hanane Quick Medicine, Encounter Date: 01/22/2024 Plastic Surgeon Referral for Excess panniculus of abdomen Referring Physician: Carmelina Solis Internal Medicine, Encounter Date: 01/22/2024 Final Operations Technician Referral for Type 2 diabetes mellitus without complication Referring Physician: Carmelina Solis Internal Medicine, Encounter Date: 05/29/2024 Diabetic Ophthalmology Refer ral for Type 2 diabetes mellitus without complication Referring Physician: Hanane Quick Medicine, Encounter Date: 05/29/2024 Referring Physician: Hanane Quick Medicine, Encounter Date: 05/29/2024 Endocrinology Referral for H yperprolactinemia Referring Physician: Hanane Quick Medicine, Encounter Date: 05/29/2024 ENT Surgery Referral for Chr onic sinusitis Referring Physician: Hanane Quick Medicine, Encounter Date: 05/29/2024 Final Operations Technician Referral for Type 2 diabetes mellitus without complication Referring Physician: Hanane Quick, Encounter Date: 07/15/2024 Diabetic Ophthalmology Refer ral for Type 2 diabetes mellitus without complication Referring Physician: Carmelina Solis Internal Medicine, Encounter Date: 07/15/2024 Referring Physician: Hanane Quick Medicine, Encounter Date: 07/15/2024 Endocrinology Referral for H yperprolactinemia Referring Physician: Hanane Quick, Encounter Date: 07/15/2024 ENT Surgery Referral for Chr onic sinusitis Referring Physician: Hanane Quick, Encounter Date: 07/15/2024 Plastic Surgeon Referral for Excess panniculus of abdomen Referring Physician: Hanane Quick Medicine, Encounter Date: 07/15/2024 Liability Claims Adjuster Referral for Es sential hypertension Referring Physician: Hanane Quick, Encounter Date: 07/15/2024 Final Operations Technician Referral for Type 2 diabetes mellitus without complication Referring Physician: Hanane Quick Medicine, Encounter Date: 09/16/2024 Diabetic Ophthalmology Refer ral for Type 2 diabetes mellitus without complication Referring Physician: Hanane Quick Medicine, Encounter Date: 09/16/2024 Referring Physician: Hanane Quick Medicine, Encounter Date: 09/16/2024 Endocrinology Referral for H yperprolactinemia Referring Physician: Hanane Quick Medicine, Encounter Date: 09/16/2024 Plastic Surgeon Referral for Excess panniculus of abdomen Referring Physician: Carmelina Solis, Internal Medicine, Encounter Date: 09/16/2024 Liability Claims Adjuster Referral for Es sential hypertension Referring Physician: Carmelina Solis, Internal Medicine, Encounter Date: 09/16/2024 Results Created Date Observation Date Name Description Value Unit Range Abnormal Flag Note LastModifiedBy Organization Detail LastModifiedTime 10/16/20 XR, chest , 2 view [facility] [address] [place] [address] Patien t Name: BEVERLY CONKLIN CH Access ion #: [id number] Sex: F : 1964 2 Dictat ed By: Kris yang Attend ing Physic norm: SAWYER VERONICA Orderi ng Physic norm: SAWYER VERONICA Exam Date: 2022 08:55 AM Exam Name: XR CHEST 2V Admitt ing Diagno sis(es ): CLINIC AL INFORM ATION: Swelli ng of clavic ular region . TECHNI QUE: Fronta l and latera l chest radiog raphs were obtain ed. COMPAR RORO: Prior radiog raphs dated 023. FINDIN GS: Lungs: Simila r appear ing mild elevat ion of the right hemidi aphrag m. Possib le nodula r opacit y visual ized in the latera l aspect of the right upper lung seen on the PA view, not well correl ated on the latera l view. No focal consol idatio n visual ized. Mild atelec tasis in the left lung base. Cardia c: Heart size is within normal limits . Pulmon celina vascul ature: Unrema rkable Medias tinum/ karmen: Within normal limits . Bones: Unrema rkable . Other: No other signif icant findin g. IMPRES KELLY: Possib le nodula r opacit y in the latera l aspect of the right upper lung seen on the PA view only. Pulmon celina nodule not exclud ed. Follow -up CT chest could be consid ered. Electr onical ly Signed by: Kris yang at 2022 09:33: 47 AM Page [address] (Imaging) [address] [place], [address], 01/12/2024 15:52:52 10/16/20 23 10/16/2023 XR, chest , 2 view No observ ation record ed. [address] [facility] [address] [place] [address] , [place], [address], 01/12/2024 15:52:52 11/03/19 24 11/03/2023 CT, chest , w/o contr ast No observ ation record ed. [address], [place], [address], 01/12/2024 15:52:53 11/04/19 24 11/03/2023 CT, chest , w/o contr ast No observ ation record ed. [address], [place], [address], 01/12/2024 15:52:53 11/08/19 24 11/08/2023 XR, chest No observ ation record ed. [address] , [place], [address], 01/12/2024 15:52:54 11/17/19 24 11/17/2023 XR, chest No observ ation record ed. [address], [place], [address], 01/12/2024 15:51:57 02/26/20 24 02/26/2024 imagi ng/di agnos tic resul t No observ ation record ed. [address], [place], [address], 02/26/2024 18:18:28 07/15/20 24 ribs right w/Pa chest , min 3vw [facility] [address] [facility] [place] [address] [phone] [id number] Patien t Name: BEVERLY CONKLIN CH Access ion #: [id number] Sex: F : 1964 9 Dictat ed By: Kris yang Attend ing Physic norm: SAWYER VERONICA Orderi ng Physic norm: SAWYER VERONICA Exam Date: 2023 09:07 AM Exam Name: XR RIBS RT W/PA CHEST 3V Admitt ing Diagno sis(es ): CLINIC AL INFORM ATION: 59 years old, Female ; right chest pain. TECHNI QUE: Single PA view of the chest and AP and obliqu e views of the right ribs were obtain ed. COMPAR RORO: Chest radiog raphs dated 2022. FINDIN GS: Lungs are clear. No focal consol idatio n, pneumo thorax , or pleura l effusi on. Cardia c and medias tinal contou rs are within normal limits in size. There is dense athero sclero tic calcif icatio n of the aortic arch. Pulmon celina vascul ature is normal . No eviden ce of acute fractu re in the right ribs. IMPRES KELLY: 1. No eviden ce of acute diseas e in the chest. 2. No acute fractu re identi fied in the right ribs. Correl ate with clinic al findin gs. Electr onical ly Signed by: Kris yang at 2023 07:17: 10 AM Page [address] (Imaging) [address] [place], [address], 07/15/2024 15:00:00 07/15/20 24 07/15/2024 XR, ribs, unila teral , w/ PA chest No observ ation record ed. [address] [place] [address] [place], [address], 07/15/2024 15:00:01 07/29/20 24 07/29/2024 MAMMO , scree shana, digit al, bilat eral No observ ation record ed. [email or web address] [facility] [address], [place], [address], 11/25/2024 18:05:12 12/19/19 25 12/17/2024 imagi ng/di agnos tic resul t No observ ation record ed. [facility] [address], [place], [address], 12/19/2024 09:47:11 Result Notes None recorded. Problems Name Problem SNOMED Code Status Onset Date Resolution Date Notes Provider Name and Address Organization Details Recorded Time Pain in lower limb 14405425 Active Not Available [facility] 3 02:48:10 Bilateral osteoarthr itis of knees 2882588990626 07 Active 2021 Not Available [facility] 3 02:48:10 Bilateral trochanter ic bursitis 7282658133137 9109 Active 2021 Not Available [facility] 3 02:48:10 Disorder of lower limb 549776272 Active Not Available [facility] 3 02:48:10 Disorder of shoulder 375047799 Active Not Available [facility] 3 02:48:10 Plantar fasciitis of right foot 6089426820999 9101 Active 2017 Not Available [facility] 3 02:48:10 Pain in right sacroiliac joint 3814654691459 9107 Active 2019 Not Available [facility] 3 02:48:10 Folliculit is 41089377 Active Not Available [facility] 3 02:48:10 Pain of right shoulder joint 7140156136767 9100 Active 2021 Not Available [facility] 3 02:48:10 Asthma 175614472 Active Not Available [facility] 3 02:48:10 Localized, primary osteoarthr itis of the shoulder region 248353624 Active 2021 Not Available [facility] 3 02:48:10 Equinus contractur e of the ankle 044936721 Active 2017 Not Available [facility] 3 02:48:10 Sacroiliac joint pain 673454360 Active 2021 Not Available [facility] 3 02:48:10 Partial thickness rotator cuff tear 570868390 Active 2018 Not Available [facility] 3 02:48:11 Partial thickness rotator cuff tear 155448309 Active 2018 Not Available [facility] 3 02:48:11 Morbid obesity 314584900 Active 2016 Not Available [facility] 3 02:48:11 Osteoarthr itis of knee 809965420 Active 2018 Not Available [facility] 3 02:48:11 Ankle pain 730555792 Active Not Available [facility] 3 02:48:11 Edema 687496887 Active Not Available [facility] 3 02:48:11 Shoulder joint pain 262372974 Active Not Available [facility] 3 02:48:11 Eruption 575539845 Active Not Available [facility] 3 02:48:11 Low back pain 429975159 Active Not Available [facility] 3 02:48:11 Unable to cut own toenails 343455438 Active 2020 Not Available [facility] 3 02:48:11 Current tear of medial cartilage AND/OR meniscus of knee Active Not Available [facility] 3 02:48:12 Current tear of lateral cartilage AND/OR meniscus of knee Active Not Available [facility] 3 02:48:12 Trochanter ic bursitis of left hip 4160087767941 03 Active 2020 Not Available [facility] 3 02:48:12 Trochanter ic bursitis of right hip 7376901357983 00 Active 2019 Not Available [facility] 3 02:48:12 Bronchitis 01935251 Active 2017 Not Available [facility] 3 02:48:12 Vitamin D deficiency 16834021 Active 2017 Not Available [facility] 3 02:48:12 Inflammato ry disorder of extremity 590222706 Active Not Available [facility] 3 02:48:12 Sinusitis 14490187 Active Not Available [facility] 3 02:48:12 Dyslipidem ia 398601586 Active 2021 Not Available [facility] 3 02:48:12 Osteoarthr itis 262723927 Active Not Available [facility] 3 02:48:13 Staphyloco ccal infection of skin 635846877 Active 2021 Not Available [facility] 3 02:48:13 Onychomyco sis of toenails 240876700 Active 2019 Not Available [facility] 3 02:48:13 Dizziness 933462556 Active 2017 Not Available [facility] 3 02:48:13 Hypothyroi dism 53502662 Active 2021 Not Available [facility] 3 02:48:13 Furuncle 755663419 Active Not Available [facility] 3 02:48:13 Diabetic peripheral neuropathy 616991614 Active 2020 Not Available [facility] 3 02:48:13 Well controlled type 2 diabetes mellitus 305118339 Active 2021 Not Available [facility] 3 02:48:13 Cramp in lower limb 597335998 Active Not Available [facility] 3 02:48:13 Pain of right knee joint 5012553485711 00 Active 2021 Not Available [facility] 3 02:48:14 Cough 60369723 Active 2021 Not Available [facility] 3 02:48:14 Tibialis tendinitis 09009458 Active Not Available [facility] 3 02:48:14 Essential hypertensi on 55583458 Active Not Available [facility] 3 02:48:14 Urinary tract infectious disease 64373132 Active 2021 Not Available [facility] 3 02:48:14 Paronychia 74868088 Active Not Available [facility] 3 02:48:14 Candidiasi s of vagina 59077969 Active 2021 Not Available [facility] 3 02:48:14 Palpitatio ns 58292679 Active Not Available [facility] 3 02:48:15 Dystrophia unguium 14499227 Active 2020 Not Available [facility] 3 02:48:15 Hyperlipid emia 06875884 Active 2022 Carmelina fontenot MD [address], [place], [address] , [facility] 3 19:10:33 Type 2 diabetes mellitus without complicati on 146749892 Active 2022 Carmelina fontenot MD [address], [address], [place], [address] , [facility] 3 19:10:51 Rheumatoid arthritis 43524024 Active 2022 Carmelina fontenot MD [address], [place], [address] , [facility] 3 19:11:11 Urinary incontinen ce 177871847 Active 2022 Carmelina fontenot MD [address], [address], [place], [address] , [facility] 3 19:11:43 Pneumonia 150943120 Active 2022 Carmelina fontenot MD [address], [place], [address] , [facility] 3 19:12:13 Hyperprola ctinemia 609202548 Active 2022 Carmelina fontenot MD [address], [place], [address] , [facility] 3 19:12:19 Hypoprotei nemia 1257583 Active 2022 Carmelina fontenot MD [address], [address], [place], [id number] , [employer] [facility] 3 19:12:39 Immunodefi ciency disorder [id number] Active 2022 Carmelina fontenot MD [address], [address], [place], [address] , [employer] 3 19:13:09 Gastroesop hageal reflux disease without esophagiti s 413442186 Active 2022 Carmelina fontenot MD [address], [address], [place], [address] , [employer] [facility] 3 19:13:20 Generalize d anxiety disorder 45251734 Active 2022 Carmelina fontenot MD [address], [address], [place], [address] , [employer] [facility] 3 19:13:28 Vertigo 577527739 Active 2022 Carmelina fontenot MD [address], [address], [place], [address] , [employer] [facility] 3 19:16:12 Dry eyes 396880097 Active 2022 Carmelina fontenot MD [address], [address], [place], [address] , [employer] [facility] 3 19:18:40 Skin lesion 99037757 Active 2022 Carmelina fontenot MD [address], [address], [place], [address] , [employer] [facility] 3 12:06:10 Migraine 35640565 Active 2022 Carmelina fontenot MD [address], [address], [place], [address] , [facility] [place] [facility] 3 12:07:07 Chronic sinusitis 27540266 Active 2022 Carmelina fontenot MD [address], [address], [place], [address] , [facility] [place] [facility] 3 12:33:20 Pain of left hip joint [id number] 00 Active 2022 KIMBERLEE SantizoA null, [place] [facility] 3 09:19:14 Vaginitis 03170371 Active 2022 Jennifer hutchinson, [place] [facility] 3 12:29:22 Pain of bilateral hands [id number] 9109 Active 2022 KIMBERLEE SantizoA null, [place] [facility] [place] [facility] 3 11:58:29 Spinal stenosis of lumbar region 97324059 Active 2022 Karlene Welshs null, [place] [facility] 3 12:21:59 Bilateral carpal tunnel syndrome [id number] 9101 Active 2022 Rip Vega MD [address], [address], [place], [address] , [facility] 3 12:28:28 Excess panniculus of abdomen [id number] Active 2022 Carmelina fontenot MD [address], [place], [address] , [facility] 3 12:20:48 Acute sinusitis 72041541 Active 2022 Jennifer hutchinson, [facility] 3 13:02:51 Swelling of clavicular region 3244572832 Active 2022 Carmelina fontenot MD [address], [place], [address] , [facility] 3 09:46:23 Solitary nodule of lung 492549410 Active 2022 Talisha Hogue BRANDI null, [facility] 3 12:34:04 Candidiasi s of mouth 38692775 Active 2023 Talisha Hogue BRANDI null, [facility] 4 16:17:57 Uncontroll ed type 2 diabetes mellitus 832902858 Active 2023 Kirti Shannon MA null, [facility] 4 13:00:58 Pain of right breast 1078799929 Active 2023 Carmelina fontenot MD [address], [place], [address] , [facility] 4 09:34:50 Right sided chest pain 312031913 Active 2023 Carmelina fontenot MD [address], [place], [address] , [facility] 4 09:36:22 Notes:allergies, back/neck p roblems, swelling in arms or legs, wears glasses/contacts Problem Notes None recorded. Procedures Surgical History Date Name Laterality Status Provider Name and Address Organization Details Recorded Time 03/30/20 Ortho - Cortisone Injection completed Rip Vega MD [address], [place], [address], [facility] 03/30/2023 09:49:12 08/12/20 20 Most Recent Mammogram completed Not Available [facility] 12/28/2022 02:42:50 10/17/20 19 Hysterectomy completed Not Available [facility] 023 02:42:54 10/17/20 19 [employer]IC [employer] DIRECTOR Surgery completed Not Available [facility] 12/29/19 02:42:54 09/19/20 19 Dilation and curettage completed Not Available [facility] 12/28/2022 02:42:54 09/19/20 19 ACADEMIC SUPPORT DIRECTOR Surgery completed Not Available [facility] 12/29/19 02:42:54 01/03/20 19 Knee arthroscopy/surge ry completed Not Available [facility] 12/28/2022 02:42:54 04/05/20 18 Date of Last Pap Smear completed Not Available [facility] 12/28/2022 02:42:49 04/20/20 17 hysteroscopy with biopsy completed Not Available [facility] 12/28/2022 02:42:54 04/20/20 17 ACADEMIC SUPPORT DIRECTOR Surgery completed Not Available [facility] 12/29/19 02:42:54 04/20/20 17 Dilation and curettage completed Not Available [facility] 12/28/2022 02:42:54 Tonsillectomy completed Not Available [facility] 12/28/2022 02:42:54 other completed Not Available [facility] 10/2022 02:42:54 other completed Not Available [facility] 10/2022 02:42:54 Orthopedic Surgery completed Not Available [facility] 12/28/2022 02:42:54 other completed Not Available [facility] 10/2022 02:42:54 Gallbladder Surgery completed Not Available [facility] 12/28/2022 02:42:54 ENT Surgery completed Not Available [facility] 12/28/2022 02:42:54 other completed Not Available [facility] 10/2022 02:42:54 section completed Not Available [facility] 12/28/2022 02:42:54 ACADEMIC SUPPORT DIRECTOR Surgery completed Not Available [facility] 12/28/2022 02:42:54 Bronchoscopy [facility] 02:42:54 Imaging Results Imaging Date Name Status LastModified by Organiz ation Details LastModified Time 10/16/2023 XR, chest, 2 view completed [email or web address] [facility] (Imaging) [address] [place], [address], 01/12/2024 15:52:52 10/16/2023 XR, chest, 2 view completed [email or web address] [facility] [address] [place] [address], [place], [address], 01/12/2024 15:52:52 11/03/2023 CT, chest, w/o contrast completed [address] [address], [place], [address], 01/12/2024 15:52:53 11/03/2023 CT, chest, w/o contrast completed [address] [address], [place], [address], 01/12/2024 15:52:53 11/08/2023 XR, chest completed [address], [place], [address], 01/12/2024 15:52:54 11/17/2023 XR, chest completed [address] [address], [place], [address], 01/12/2024 15:51:57 02/26/2024 imaging/diagno stic result active [address] [address], [place], [address], 02/26/2024 18:18:28 07/15/2024 ribs right w/Pa chest, min 3vw completed [address] (Imaging) [address] [place], [address], 07/15/2024 15:00:00 07/15/2024 XR, ribs, unilateral, w/ PA chest completed [address] [place], [address], 07/15/2024 15:00:01 07/29/2024 MAMMO, screening, digital, bilateral active [address], [address], 11/25/2024 18:05:12 12/17/2024 imaging/diagno stic result active [address], [address], 12/19/2024 09:47:11 Procedure Notes None recorded. Medical Equipment None Reported. Allergies Allergen ID Allergen Name Allergen Category Reaction Reaction Severity Criticality Documentation Date Start Date Code Code System Note Provider Name and Address Organization Details Recorded Time 4336 Substance with sulfonami de structure and antibacte rial mechanism of action (substanc e) medicatio n hives Not available Not available 12/28/2022 24719 8003 SNOMED Not Available [facility] 3 02:55:44 4337 fentanyl medicatio n other Not available Not available 12/28/2022 4337 RxNorm respi rator y distr ess Not Available [facility] 3 02:55:44 4338 codeine medicatio n vomiting Not available Not available 12/28/2022 2670 RxNorm Not Available [facility] 3 02:55:45 4339 amoxicill in medicatio n hives Not available Not available 12/28/2022 723 RxNorm Not Available [facility] 3 02:55:45 4340 amitripty line medicatio n other Not available Not available 12/28/2022 704 RxNorm unabl e to urina te Not Available [facility] 3 02:55:45 04282 peach food rash moderate Not available 01/22/2024 522[address] RAKESH Hogue, BRANDI hutchinson, [place] [facility] 4 11:22:05 Medications Name Sig Start Date Stop Date Status Note LastModified by Organization Details LastModified Time compound drug 09/16 completed Not Available Not Available Not Available cmp ciproflox acin 400mg capsule EMPTY 1 CAPSULE INTO IDS, ADD DISTILLE D WATER, ADD SALT PACKET, IRRIGATE TWICE DAILY 09/16 completed Not Available Not Available Not Available Prescript ion - Prior Authoriza tion Request active Not Available Not Available Not Available tetracycl ine 500 mg capsule Take 1 capsule 4 times a day by oral route for 7 days. active Not Available Not Available No t Available losartan 50 mg tablet TAKE ONE TABLET DAILY 09/17 completed Not Available Not Available Not Available carisopro dol 350 mg tablet Take 1 tablet every day by oral route at bedtime. active Not Available Not Available No t Available celecoxib 200 mg capsule TK 1T PO BID active Not Available Not Available No t Available cyclobenz aprine 10 mg tablet Take 1 tablet 3 times a day by oral route. active Not Available Not Available No t Available buspirone 5 mg tablet TAKE 1 TABLET BY MOUTH TWICE DAILY completed Not Available Not Available Not Available metformin 500 mg tablet TAKE ONE TABLET BY MOUTH TWICE DAILY WITH MEALS 08/02 completed Not Available Not Available Not Available Augmentin 875 mg-125 mg tablet Take 1 tablet twice a day by oral route for 7 days. 01/14 completed Not Available Not Available Not Available fluticaso ne 250 mcg-salme terol 50 mcg/dose blistr powdr for inhalatio n active Not Available Not Available Not Available prednison e 10 mg tablet TAKE 1 TABLET BY MOUTH TWICE DAILY 05/29 completed Not Available Not Available Not Available Unithroid 88 mcg tablet TAKE 1 TABLET BY MOUTH EVERY DAY IN THE MORNING 09/18 completed Not Available Not Available Not Available doxycycli ne hyclate 100 mg capsule TAKE 1 CAPSULE BY MOUTH TWICE DAILY 09/16 completed Not Available Not Available Not Available paroxetin e 10 mg tablet Take 1 tablet every day by oral route. 09/17 completed Not Available Not Available Not Available ipratropi um 0.5 mg-albute rol 3 mg (2.5 mg base)/3 mL nebulizat ion soln USE 1 VIAL IN NEBULIZE R EVERY 4 HOURS UNTIL BREATHIN G RETURNS TO TARGET PEAK FLOW PARAMETE RS active Not Available Not Available No t Available clindamyc in HCl 300 mg capsule TAKE 1 CAPSULE BY MOUTH EVERY 6 HOURS 07/15 completed Not Available Not Available Not Available albuterol sulfate 2.5 mg/3 mL (0.083 %) solution for nebulizat ion USE 1 VIAL VIA NEBULIZE R FOUR TIMES DAILY FOR SHORTNES S OF BREATH OR WHEEZING completed Not Available Not Available Not Available Pneumovax -23 25 mcg/0.5 mL injection solution active Not Available Not Available Not Available oxybutyni n chloride ER 10 mg tablet,ex tended release 24 hr TAKE 1 TABLET BY MOUTH EVERY DAY. ALEX Reza POTENTIA L SIDE EFFECTS. CALL IF BOTHERSO ME active Not Available Not Available No t Available azithromy arielle 250 mg tablet TAKE 2 TABLETS BY MOUTH FOR 1 DAY THEN TAKE 1 TABLET BY MOUTH DAILY FOR 4 DAYS 11/17 completed Not Available Not Available Not Available miconazol e nitrate 2 % topical cream APPLY TO THE AFFECTED AREA TWICE DAILY IN THE MORNING AND EVENING 04/27 completed Not Available Not Available Not Available ibuprofen 800 mg tablet Take 1 tablet every 8 hours by oral route as directed for 30 days. active Not Available Not Available No t Available Lidocaine Viscous 2 % mucosal solution APPLY WITH COTTON SWAB TO SITE PAIN THREE TIMES DAILY NEEDED active Not Available Not Available No t Available Cytotec 200 mcg tablet Take 2 tablets by oral route at bedtime for 1 day. 10/07 completed Not Available Not Available Not Available fluconazo le 150 mg tablet TAKE 1 TABLET BY MOUTH DIRECTED 01/21 completed Not Available Not Available Not Available benzonata te 200 mg capsule TAKE 1 CAPSULE BY MOUTH TWICE DAILY NEEDED FOR COUGH 09/16 completed Not Available Not Available Not Available valacyclo vir 1 gram tablet TAKE 1 TABLET BY MOUTH TWICE DAILY FOR 7 DAYS active Not Available Not Available No t Available clarithro mycin 500 mg tablet Take 1 tablet every 12 hours by oral route. active Not Available Not Available No t Available tolterodi ne ER 4 mg capsule,e xtended release 24 hr TAKE 1 CAPSULE DAILY active Not Available Not Available No t Available cephalexi n 250 mg capsule 05/29 completed Not Available Not Available Not Available hydrocodo ne 5 mg-acetam inophen 325 mg tablet Take 1 tablet twice a day by oral route as needed for 7 days. 01/23 completed Not Available Not Available Not Available E.E.S. 400 mg tablet Take 1 tablet every day by oral route. active Not Available Not Available No t Available Nystop 100,000 unit/gram topical powder APPLY TOPICALL Y EVERY 12 HOURS 04/27 completed Not Available Not Available Not Available fluconazo le 200 mg tablet TAKE 1 TABLET BY MOUTH DAILY 01/21 completed Not Available Not Available Not Available meloxicam 15 mg tablet Take 1 tablet every day by oral route with meals for 30 days. active Not Available Not Available No t Available sumatript an 25 mg tablet TAKE 1 TABLET BY MOUTH EVERY 4 HOURS NEEDED UP TO 8 TABLETS PER DAY active Not Available Not Available No t Available ondansetr on HCl 4 mg tablet TAKE 1 TABLET BY MOUTH TWICE DAILY NEEDED completed Not Available Not Available Not Available famotidin e 40 mg tablet TAKE 1 TABLET BY MOUTH DAILY 09/16 completed Not Available Not Available Not Available prednison e 20 mg tablet TAKE 2 TABLETS BY MOUTH DAILY FOR 4 DAYS 01/21 completed Not Available Not Available Not Available Synthroid 100 mcg tablet Take 1 tablet every day by oral route for 90 days. 12/02 completed Not Available Not Available Not Available prednison e 5 mg tablet TAKE 1 TABLET BY MOUTH DAILY IN THE MORNING PRN active Not Available Not Available No t Available azathiopr ine 50 mg tablet active Not Available Not Available Not Available estradiol 0.05 mg/24 hr semiweekl y transderm al patch active Not Available Not Available Not Available valacyclo vir 500 mg tablet Take 1 tablet twice a day by oral route. 11/20 completed Not Available Not Available Not Available ciproflox acin 500 mg tablet Take 1 tablet twice a day by oral route for 7 days. active Not Available Not Available No t Available omeprazol e 40 mg capsule,d elayed release TAKE 1 CAPSULE DAILY NEEDED active Not Available Not Available No t Available liothyron ine 5 mcg tablet active Not Available Not Available Not Available leflunomi de 20 mg tablet TAKE 1 TABLET BY MOUTH DAILY active Not Available Not Available No t Available tramadol 50 mg tablet TAKE 1 TABLET BY MOUTH THREE TIMES DAILY WITH OTC TYLENOL NEEDED FOR PAIN 07/15 completed Not Available Not Available Not Available triamcino lone acetonide 0.1 % topical cream APPLY A THIN LAYER TO THE AFFECTED AREA THREE TIMES DAILY active Not Available Not Available No t Available enalapril 10 mg-hydroc hlorothia zide 25 mg tablet TAKE 1 TABLET DAILY 07/09 completed Not Available Not Available Not Available prednison e 10 mg tablets in a dose pack Take 1 tab by mouth, 3 times a day for 3 daysTake 1 tab by mouth 2 times a day for 2 daysTake 1 tab by mouth once a day for 1 day 01/23 completed Not Available Not Available Not Available oxycodone -acetamin ophen 5 mg-325 mg tablet TAKE TWO TABLETS EVERY 4 HOURS NEEDED FOR PAIN 11/04 completed Not Available Not Available Not Available terbinafi ne HCl 250 mg tablet TAKE 1 TABLET BY MOUTH EVERY DAY WITH FOOD 10/16 completed Not Available Not Available Not Available alprazola m 0.25 mg tablet Take 1 TABLET qd as needed fr anxety by oral route. active Not Available Not Available No t Available lorazepam 0.5 mg tablet TAKE 1 TABLET BY MOUTH THREE TIMES DAILY NEEDED 01/23 completed Not Available Not Available Not Available gentamici n 0.3 % eye drops INSTILL 1 DROP INTO AFFECTED EYE(S) BY OPHTHALM IC ROUTE EVERY 4 HOURS 04/05 completed Not Available Not Available Not Available Synthroid 25 mcg tablet TAKE 1 TABLET EVERY OTHER DAY IN THE MORNING. ALTERNAT E WITH 50MCG 07/09 completed Not Available Not Available Not Available OneTouch Ultra Test strips TEST BLOOD SUGAR TWICE DAILY 04/27 completed Not Available Not Available Not Available Kenalog 10 mg/mL suspensio n for injection Take 20 mg by injectio n route. 04/27 completed [facility]: [id number] 4-20 Not Available Not Available Not Available dexametha sone 1 mg tablet TAKE 1 TABLET BY MOUTH AT 10 PM THE NIGHT BEFORE 8 AM CORTISOL . 09/16 completed Not Available Not Available Not Available meclizine 25 mg tablet TK 1 T PO BID FOR 15 DAYS PRN completed Not Available Not Available Not Available diazepam 2 mg tablet TK 1 T PO TID FOR 30 DAYS active Not Available Not Available No t Available benzonata te 100 mg capsule TAKE 2 CAPSULES BY MOUTH THREE TIMES DAILY NEEDED FOR COUGH 01/23 completed Not Available Not Available Not Available doxycycli ne monohydra te 100 mg capsule TAKE 1 CAPSULE BY MOUTH TWICE DAILY 01/21 completed Not Available Not Available Not Available prednison e 2.5 mg tablet TAKE 3 TABLETS BY MOUTH DAILY 04/27 completed Not Available Not Available Not Available cephalexi n 500 mg capsule TAKE 1 CAPSULE BY MOUTH EVERY 6 HOURS FOR 5 DAYS 06/15 completed Not Available Not Available Not Available pantopraz ole 40 mg tablet,de layed release TAKE 1 TABLET BY MOUTH EVERY MORNING 06/15 completed Not Available Not Available Not Available erythromy arielle 5 mg/gram (0.5 %) eye ointment APPLY A 1 CM RIBBON INTO THE LOWER CONJUCTI BIJAN SAC ON THE AFFECTED EEY THREE TIMES DAILY FOR 2 TO 3 DAYS active Not Available Not Available No t Available cyanocoba milton (vit B-12) 1,000 mcg/mL injection solution active Not Available Not Available Not Available tacrolimu s 0.1 % topical ointment active Not Available Not Available Not Available nitrofura ntoin macrocrys heron 100 mg capsule TAKE 1 CAPSULE BY MOUTH EVERY 12 HOURS active Not Available Not Available No t Available ranitidin e 150 mg tablet TAKE ONE TABLET DAILY active Not Available Not Available No t Available Alrex 0.2 % eye drops,terrell pension active Not Available Not Available Not Available fluticaso ne 500 mcg-salme terol 50 mcg/dose blistr powdr for inhalatio n INHALE 1 PUFF BY MOUTH EVERY 12 HOURS active Not Available Not Available No t Available losartan 25 mg tablet 2 Tablets Daily (50mg total) 11/26 completed Not Available Not Available Not Available nystatin- triamcino lone 100,000 unit/g-0. 1 % topical cream APPLY TO THE AFFECTED AREA SPARINGL Y TWICE DAILY , IN THE MORNING AND EVENING active Not Available Not Available No t Available misoprost ol 100 mcg tablet TAKE FOUR TABLETS AT BEDTIME THE NIGHT PRIOR TO PROCEDUR E 10/07 completed Not Available Not Available Not Available diclofena c potassium 50 mg tablet Take 1 tablet twice a day by oral route. active Not Available Not Available No t Available Synthroid 50 mcg tablet TAKE 1 TABLET EVERY OTHER DAY IN THE MORNING. ALTERNAT E WITH 25MCG 07/09 completed Not Available Not Available Not Available docusate sodium 100 mg capsule 09/16 completed Not Available Not Available Not Available oxybutyni n chloride ER 5 mg tablet,ex tended release 24 hr TAKE 2 TABLETS BY MOUTH EVERY MORNING 06/15 completed on 10mg tab Not Available Not Available Not Available omeprazol e 20 mg capsule,d elayed release TAKE 2 CAPSULES BY MOUTH DAILY NEEDED FOR ACID REFLUX 11/17 completed Not Available Not Available Not Available budesonid e 0.5 mg/2 mL suspensio n for nebulizat ion USE 1 VIAL VIA NEBULIZE R TWICE DAILY. RINSE AND SPIT. 04/27 completed Not Available Not Available Not Available gentamici n 0.1 % topical cream 12/07 completed Not Available Not Available Not Available diclofena c sodium 75 mg tablet,de layed release TAKE 1 TABLET BY MOUTH TWICE DAILY 03/18 completed Not Available Not Available Not Available diltiazem CD 120 mg capsule,e xtended release 24 hr TAKE 1 CAPSULE BY MOUTH EVERY DAY active Not Available Not Available No t Available folic acid 1 mg tablet TAKE 2 TO 4 TABLETS BY MOUTH DAILY completed Not Available Not Available Not Available etodolac 400 mg tablet Take 1 tablet twice a day by oral route for 30 days. active Not Available Not Available No t Available monteluka st 10 mg tablet TAKE 1 TABLET DAILY active Not Available Not Available No t Available pravastat in 20 mg tablet TAKE 1 TABLET BY MOUTH DAILY active Not Available Not Available No t Available hydrochlo rothiazid e 25 mg tablet TAKE 2 TABLETS BY MOUTH DAILY active Not Available Not Available No t Available mupirocin 2 % topical ointment APPLY EXTERNAL LY TO THE AFFECTED AREA DIRECTED IN INSTRUCT IONS FROM CLINIC active Not Available Not Available No t Available furosemid e 20 mg tablet Take 1 tablet every day by oral route. 09/05 completed Not Available Not Available Not Available gabapenti n 100 mg capsule TAKE 1 TO 3 CAPSULES BY MOUTH DAILY AT BEDTIME active Not Available Not Available No t Available lorazepam 1 mg tablet TK 1 T PO 1 HOUR PRIOR TO MRI active Not Available Not Available No t Available hydroxych loroquine 200 mg tablet TAKE 2 TABLETS BY MOUTH DAILY active Not Available Not Available No t Available Diony-Tab 500 mg tablet,de layed release 05/03 completed Not Available Not Available Not Available levofloxa arielle 500 mg tablet TK 1 T PO QD FOR 7 DAYS active Not Available Not Available No t Available estradiol 0.01% (0.1 mg/gram) vaginal cream USE 1 GRAM VAGINALL Y 3 TIMES A WEEK active Not Available Not Available No t Available levofloxa arielle 750 mg tablet TAKE 1 TABLET BY MOUTH DAILY active Not Available Not Available No t Available insulin syringe U-100 with needle 1 mL 30 gauge x 16 USE TO INJECT B12 WEEKLY active Not Available Not Available No t Available methylpre dnisolone 4 mg tablets in a dose pack FOLLOW PACKAGE DIRECTIO NS 01/23 completed Not Available Not Available Not Available albuterol sulfate HFA 90 mcg/actua tion aerosol inhaler INHALE 2 PUFFS BY MOUTH FOUR TIMES DAILY NEEDED FOR SHORTNES S OF BREATH active Not Available Not Available No t Available Unithroid 75 mcg tablet TAKE 1 TABLET DAILY IN THE MORNING active Not Available Not Available No t Available Vitamin D2 1,250 mcg (50,000 unit) capsule Take 1 capsule every week by oral route. 04/05 completed Not Available Not Available Not Available ketoconaz ole 2 % topical cream WILLIAM TOPICALL Y AA ON TOENAILS ONCE D active Not Available Not Available No t Available oxybutyni n chloride 5 mg tablet Take 2 tablets every day by oral route in the morning. 06/15 completed on 10mg tab Not Available Not Available Not Available ondansetr on 4 mg disintegr ating tablet active Not Available Not Available Not Available cefdinir 300 mg capsule TAKE 1 CAPSULE BY MOUTH EVERY 12 HOURS FOR 21 DAYS 12/02 completed Not Available Not Available Not Available losartan 100 mg tablet TAKE 1 TABLET BY MOUTH DAILY active Not Available Not Available No t Available fluticaso ne propionat e 50 mcg/actua tion nasal spray,[employer] SHAKE LIQUID AND USE 1 SPRAY IN EACH NOSTRIL EVERY DAY active Not Available Not Available No t Available metformin ER 500 mg tablet,ex tended release 24 hr TAKE 1 TABLET TWICE A DAY WITH MEALS active Not Available Not Available No t Available colestipo l 1 gram tablet Take 2 tablets twice a day by oral route before meals for 30 days. active Not Available Not Available No t Available doxycycli ne hyclate 100 mg tablet TAKE 1 TABLET BY MOUTH DAILY AT DINNER WITH FOOD FOR 4 WEEKS 05/04 completed Not Available Not Available Not Available loratadin e 10 mg tablet TAKE 1 TABLET DAILY NEEDED active Not Available Not Available No t Available ipratropi um bromide 0.02 % solution for inhalatio n USE 1 VIAL IN NEBULIZE R FOUR TIMES DAILY 01/23 completed Not Available Not Available Not Available spironola ctone 50 mg tablet TAKE 1 TABLET BY MOUTH DAILY active Not Available Not Available No t Available Lotemax 0.5 % eye drops,[employer] 09/17 completed Not Available Not Available Not Available oxycodone 5 mg tablet TAKE 1 TABLET BY MOUTH EVERY 8 HOURS NEEDED FOR PAIN 05/29 completed Not Available Not Available Not Available Mucinex 600 mg tablet, extended release TAKE 2 TABLETS BY MOUTH EVERY 12 HOURS completed Not Available Not Available Not Available Restasis 0.05 % eye drops in a dropperet te INSTILL 1 DROP IN EACH EYE TWICE DAILY. active Not Available Not Available No t Available Klor-Con M20 mEq tablet,ex tended release Take 2 tablets every day by oral route for 5 days. active Not Available Not Available No t Available ciproflox acin (bulk) 100 % powder 09/16 completed Not Available Not Available Not Available Florastor 250 mg capsule TAKE ONE CAPSULE BY MOUTH TWICE DAILY 01/23 completed Not Available Not Available Not Available Spiriva with [employer] r 18 mcg and inhalatio n capsules INHALE THE CONTENTS OF ONE CAPSULE DAILY active Not Available Not Available No t Available nitrofura ntoin monohydra te/macroc rystals 100 mg capsule TAKE 1 CAPSULE BY MOUTH TWICE DAILY 01/23 completed Not Available Not Available Not Available duloxetin e 30 mg capsule,d elayed release 09/05 completed Not Available Not Available Not Available lidocaine (PF) 10 mg/mL (1 %) injection solution In office injectio n administ ered by the provider active [facility]: 0409-427 6 Not Available Not Available Not Available fenofibra te nanocryst allized 48 mg tablet TAKE 1 TABLET BY MOUTH EVERY DAY 01/23 completed Not Available Not Available Not Available Vyvanse 30 mg capsule take 1 capsule every day by oral route. 10/03 completed Not Available Not Available Not Available budesonid e-formote rol HFA 160 mcg-4.5 mcg/actua tion aerosol inhaler INHALE 2 PUFFS BY MOUTH EVERY 12 HOURS 01/23 completed Not Available Not Available Not Available cholecalc iferol (vitamin D3) 50 mcg (2,000 unit) capsule TAKE 2 CAPSULES DAILY IN THE MORNING active Not Available Not Available No t Available dapsone 5 % topical gel APPLY A THIN LAYER TO BUTTOCK/ GROIN AREA TWICE DAILY EVERY OTHER DAY TO PREVENT FLARES 04/27 completed Not Available Not Available Not Available azelastin e 205.5 mcg (0.15 %) nasal spray [place] 2 sprays twice a day by intranas al route. 12/17 completed Not Available Not Available Not Available Gammaplex (with sorbitol) 5 % intraveno us solution Inject by intraven ous route. 2021 completed Not Available Not Available Not Available Vitamin D3 125 mcg (5,000 unit) tablet Take 1 tablet every day by oral route in the morning for 90 days. 09/14 completed Not Available Not Available Not Available Suprep Bowel Prep Kit 17.5 gram-3.13 gram-1.6 gram oral solution 07/09 completed Not Available Not Available Not Available Gamunex-C 10 gram/100 mL (10 %) injection solution active Not Available Not Available Not Available Cecelia Allergy 180 mg tablet Take 1 tablet every day by oral route. 05/03 completed Not Available Not Available Not Available ropivacai ne (PF) 5 mg/mL (0.5 %) injection solution Take 20 mg by injectio n route. 04/27 completed [facility] 18849-45 01-28 Not Available Not Available Not Available Fluzone 9149-4947 45 mcg (15 mcg x 3)/0.5 mL intramusc ular suspensio n active Not Available Not Available Not Available Simponi ARIA 2020 completed Per patient, last injectio n given 05/14/21. Next injectio n 2020 Not Available Not Available Not Available potassium chloride ER 20 mEq tablet,ex tended release TK 2 TS PO D FOR 7 DAYS active Not Available Not Available No t Available Contrave 8 mg-90 mg tablet,ex tended release Take 1 tablet twice a day by oral route. 01/04 completed Not Available Not Available Not Available Gamunex-C 40 gram/400 mL (10 %) injection solution 09/16 completed Not Available Not Available Not Available Spiriva Respimat 2.5 mcg/actua tion solution for inhalatio n INHALE 2 PUFFS BY MOUTH EVERY MORNING active Not Available Not Available No t Available Spiriva Respimat 1.25 mcg/actua tion solution for inhalatio n INL 2 PFS PO Q 24 H active Not Available Not Available No t Available clindamyc in 1 %-benzoyl peroxide 5 % topical gel with pump completed Not Available Not Available Not Available Fluvirin 45 mcg (15 mcg x 3)/0.5 mL intramusc ular suspensio n ADM 0.5ML IM UTD 04/05 completed Not Available Not Available Not Available MTX 11/[address] Ruiz 08/26/19 Not Available Not Available Not Available cholecalc iferol (vitamin D3) 50 mcg (2,000 unit) chewable tablet Take 2 daily 02/27 completed Not Available Not Available Not Available oxygen 3L 01/23 completed Not Available Not Available Not Available Shingrix (PF) 50 mcg/0.5 mL intramusc ular suspensio n, kit INJECT 0.5 ML IN THE MUSCLE DIRECTED 11/24 completed Not Available Not Available Not Available Ozempic 0.25 mg or 0.5 mg (2 mg/1.5 mL) subcutane ous pen injector INJECT 0.5 MG UNDER THE SKIN EVERY WEEK 09/14 completed Not Available Not Available Not Available Afluria Quad 9225-9616 (PF) 60 mcg (15 mcg x 4)/0.5 mL IM syringe ADM 0.5ML IM UTD 12/17 completed Not Available Not Available Not Available Wixela Inhub 100 mcg-50 mcg/dose powder for inhalatio n INL 1 PUFF PO BID active Not Available Not Available No t Available OneTouch Ultra2 Meter 04/27 completed Not Available Not Available Not Available OneTouch Delica Plus Lancet 33 gauge TEST BLOOD SUGAR TWICE DAILY 04/27 completed Not Available Not Available Not Available Afluria Qd 2018- (36 mos up)(PF)60 mcg (15 mcg x4)/0.5 mL IM syringe ADM 0.5ML IM UTD 09/05 completed Not Available Not Available Not Available Paxlovid 150 mg-100 mg tablets in a dose pack (Renal Dose) TAKE BY MOUTH DIRECTED 06/15 completed Not Available Not Available Not Available Mounjaro 7.5 mg/0.5 mL subcutane ous pen injector Inject once weekly 05/30 completed Not Available Not Available Not Available Mounjaro 5 mg/0.5 mL subcutane ous pen injector Inject 5 mg every week by subcutan eous route at dinner for 28 days. 04/27 completed Not Available Not Available Not Available Mounjaro 10 mg/0.5 mL subcutane ous pen injector INGECTS O.5ML ONCE WEEKLY WITH A LARGE MEAL 09/16 completed Not Available Not Available Not Available Mounjaro 12.5 mg/0.5 mL subcutane ous pen injector active Not Available Not Available Not Available Vitals Date Recorded Body height Body mass index (BMI) Body weight Body temperature Heart rate Systolic blood pressure Diastolic blood pressure Provider Name and Address Organization Details Last Updated DateTime 3 160.02 cm 35.8 kg/m2 38310.6 6 g 97.4 [degF] 78 /min 110 mm[Hg] 66 mm[Hg] BRANDI Barrios [employer] [facility] 3 09:24:44 Date Recorded Body height Body mass index (BMI) Body weight Body temperature Heart rate Systolic blood pressure Diastolic blood pressure Provider Name and Address Organization Details Last Updated DateTime 4 160.02 cm 37.4 kg/m2 10677.9 9 g 97.6 [degF] 72 /min 122 mm[Hg] 68 mm[Hg] BRANDI Barrios [employer] [facility] 4 11:27:41 Date Recorded Body height Body mass index (BMI) Body weight Body temperature Heart rate Oxygen saturation Oxygen saturation in Arterial blood by Pulse oximetry Systolic blood pressure Diastolic blood pressure Provider Name and Address Organization Details Last Updated DateTime 4 160.02 cm 37.2 kg/m2 86369.4 g 98.3 [degF] 89 /min 96 % 96 % 130 mm[Hg] 74 mm[Hg] Barbara Wheat MA [employer] [facility] 4 14:36:32 Date Recorded Body height Body mass index (BMI) Body weight Body temperature Heart rate Respiratory rate Oxygen saturation Oxygen saturation in Arterial blood by Pulse oximetry Pain severity - 0-10 verbal numeric rating [Score] - Reported Systolic blood pressure Diastolic blood pressure Provider Name and Address Organization Details Last Updated DateTime 4 160.02 cm 36.3 kg/m2 13269.4 4 g 98.2 [degF] 70 /min 16 /min 96 % 96 % 6 128 mm[Hg] 80 mm[Hg] Reinier Ziegler LPN [employer] 4 09:16:32 Date Recorded Body height Body mass index (BMI) Body weight Body temperature Heart rate Systolic blood pressure Diastolic blood pressure Provider Name and Address Organization Details Last Updated DateTime 4 160.02 cm 36.3 kg/m2 14033.4 4 g 97.9 [degF] 72 /min 138 mm[Hg] 76 mm[Hg] Talisha Hogue Gutierrez [employer] 4 10:04:10 Social History Question Answer Notes LastModified by Organization Details LastModified Time Tobacco Smoking Status Former Smoker quit age 32 Sherita hutchinson, [employer] [facility] 04/27/2023 11:35:25 Do You Have An Advance Directive? No [id number] Information not available 12/28/2022 What Is Your Level Of Alcohol Consumption? None Information not available 04/27/2023 What Is Your Level Of Caffeine Consumption? Moderate [id number] Information not available 12/28/2022 How Much Tobacco Do You Chew? None [id number] Information not available 12/28/2022 In The 14 Days Before Symptom Onset, Have You Had Close Contact With A Laboratory-confi rmed COVID-19 While That Case Was Ill? No Information not available 04/27/2023 In The 14 Days Before Symptom Onset, Have You Had Close Contact With A Person Who Is Under Investigation For COVID-19 While That Person Was Ill? No Information not available 04/27/2023 What Type Of Diet Are You Following? REGULAR [id number] Information not available 12/28/2022 Which Illicit Or Recreational Drugs Have You Used? None Information not available 04/27/2023 Do You Or Have You Ever Used E-cigarettes Or Vape? Never Used Electronic Cigarettes Information not available 04/27/2023 What Is The Highest Grade Or Level Of School You Have Completed Or The Highest Degree You Have Received? [id number] Information not available 04/27/2023 What Is Your Occupation? Unemployed Information not available 04/27/2023 Have There Been Any Changes To Your Family Or Social Situation? No Information not available 04/27/2023 What Is The Fluoride Status Of Your Home? Unknown Information not available 04/27/2023 When Did You Quit Smoking? 16+yearssincelastci carlos 20 Years Information not available 04/27/2023 Are There Any Guns Present In Your Home? Yes Information not available 04/27/2023 Do You Use Insect Repellent Routinely? Yes Information not available 04/27/2023 Where Do You Live? SingleLevelHouse Information not available 04/27/2023 Do You Have A Medical Power Of Warehouse Coordinator? No Information not available 04/27/2023 What Was The Date Of Your Most Recent Tobacco Screening? 09/16/2024 [email or web address] Information not available 09/16/2024 Have You Ever Been Counseled For Unhealthy Alcohol Use? No Information not available 04/27/2023 Do You Have Any Pets? Yes Information not available 04/27/2023 What Is Your Relationship Status? [id number] Information not available 12/28/2022 Do You Use Your Seat Belt Or Car Seat Routinely? Yes Information not available 04/27/2023 Do You Have Smoke And Carbon Monoxide Detectors In Your Home? Yes Information not available 04/27/2023 At What Age Did You Start Smoking Tobacco? 12 Information not available 04/27/2023 Are You Passively Exposed To Smoke? No Information not available 04/27/2023 Do You Or Have You Ever Used Smokeless Tobacco? Never Used Smokeless Tobacco [id number] Information not available 12/28/2022 How Much Tobacco Do You Smoke? No [id number] Information not available 12/28/2022 What Types Of Sporting Activities Do You Participate In? None Information not available 04/27/2023 Do You Feel Stressed (tense, Restless, Nervous, Or Anxious, Or Unable To Sleep At Night)? [id number] Information not available 04/27/2023 Do You Use Any Illicit Or Recreational Drugs? No Information not available 04/27/2023 Do You Use Sunscreen Routinely? Yes Information not available 04/27/2023 How Many Years Have You Smoked Tobacco? 15 Information not available 04/27/2023 Have You Recently Traveled Abroad? No Information not available 04/27/2023 Do You Have Any Dietary Restrictions? No Information not available 04/27/2023 Do You Or Have You Ever Used Any Other Forms Of Tobacco Or Nicotine? Yes Information not available 04/27/2023 Sex: Female Functional Status Question Answer Note LastModified by Organizat ion Details LastModified Time What is your exercise level? None [id number] Information not available 12/28/2022 Mental Status None recorded. Family History Relationship Description Onset Age of this Age Resolved Age Notes LastModified by Organization Details LastModified Time Mother Chronic obstructive pulmonary disease [email or web address] Not available 09:39:16 Mother Carcinoma of lung [id number] Not available 09:39:16 Mother Essential hypertension [id number] Not available 09/16/2024 09:39:16 Mother Malignant neoplasm of brain [id number] Not available 09:39:16 Mother Family history of malignant neoplasm [id number] Not available 09:39:16 Mother Diabetes mellitus [id number] Not available 12/28/2022 02:42:58 Father Essential hypertension [id number] Not available 09/16/2024 09:39:16 Father Malignant tumor of colon [id number] Not available 09:39:16 Father Obesity [email or web address] Not avail able 09/16/2024 09:39:16 Father Family history of malignant neoplasm [id number] Not available 09:39:16 Father Diabetes mellitus Not available 2022 11:55:54 Unspecified Relation Malignant tumor of breast Aunt? [email or web address] Not available 09:39:16 Notes:cancer - mother & fath er Medical History Condition Response BLINDNESS N NERVE DISEASE N RHEUMATIC FEVER N BLADDER PROBLEMS N KIDNEY STONES N MRSA N OTHER # 1 Y POLIO N LUNG DISEASE/DISORDER Y RADIATION / CHEMOTHERAPY N COPD Y Other # 2 N BLOOD DISEASES N SURGERY N EAR OR HEARING PROBLEMS N MUMPS N DEPRESSION (INCLUDING POST ) N BOWEL PROBLEMS N STROKE/TIA N ULCERS N BENIGN PROSTATIC HYPERPLASIA N MEASLES N MYOCARDIAL INFARCTION N OBESITY Y GERD/NAUSEA Y ANEURYSM N URINARY/BLADDER/KIDNEY PROBLEMS Y CORONARY ARTERY DISEASE (CAD) N ADDICTION CONCERNS N ENDOMETRIOSIS N Impotence N USE OF BLOOD THINNERS N SKIN PROBLEMS Y GASTROINTESTINAL DISORDER N PARATHYROID DISEASE N PERIPHERAL VASCULAR DISEASE N MUSCLE,JOINT OR BONE PROBLEMS N GASTROINTESTINAL BLEEDING N BLOOD CLOTS N ASTHMA Y CATARACTS N USE OF NSAIDS Y ERECTILE DYSFUNCTION N VARICOSITIES N GI PROBLEMS N CHF N Low Testosterone N INFERTILITY N AIDS/HIV N FRACTURES N CHEMOTHERAPY / RADIATION N LIVER DISEASE N MALE HYPOGONADISM N HYPERTENSION Y Deficiency Y ANXIETY DISORDER N BLOOD TRANSFUSION N ANEMIA/BLOOD DISORDER N CHRONIC EAR INFECTIONS N BRONCHITIS N TUBERCULOSIS N GLAUCOMA N FOOT PROBLEM N DIVERTICULITIS N CHICKENPOX N SLEEP APNEA Y ALLERGIES/HAYFEVER N INFECTIOUS DISEASE N HEART ARRHYTHMIA N PROSTATE N INSOMNIA N HIGH CHOLESTEROL / HYPERLIPIDEMIA Y HYPERTHYROIDISM N EYE PROBLEMS Y NEUROLOGICAL PROBLEMS N EDEMA Y CHRONIC PAIN SYNDROME N HYPOTHYROIDISM Y CAROTID BLOCKAGE N CONSTIPATION N BACK / NECK PROBLEMS Y HAVE YOU BEEN HOSPITALIZED OR SEEN IN [facility] ER IN THE PAST YEAR ? Y ATHEROSCLEROSIS N BREAST PROBLEMS N DIALYSIS N ECZEMA N HISTORY WITH COMPLICATIONS WITH ANESTHES IA ? N OSTEOPOROSIS Y ARTHRITIS Y APPENDICITIS N DIABETES, TYPE Y BAD TEETH N ENT Y SEASONAL ALLERGIES N HEARTBURN / REFLUX N AUTISM SPECTRUM DISORDER (ASD) N HEPATITIS / LIVER DISEASE N GOUT N SLEEP DISORDER N ALZHEIMER'S DISEASE N Brain Problems N HERPES Y DEMENTIA N HEADACHES/MIGRAINES N SEIZURES/EPILEPSY N VASCULAR DISEASE N PACEMAKER N Blood Disorder N DIZZINESS N HEART DISEASE/HEART PROBLEMS N KIDNEY DISEASE N MULTIPLE SCLEROSIS N CARDIAC ARRHYTHMIA N CANCER: SPECIFY N ANESTHESIA COMPLICATIONS N ATRIAL FIBRILLATION N Gall Stones N PULMONARY EMBOLISM N AUTOIMMUNE DISEASE N Gynecological History Statement/Question Response How many live births 1 Abnormal Pap N Date of Last Mammogram 08/12/2020 Date of Last Colonoscopy Date of Last Mammogram Most Recent Bone Density Date of LMP Sexually Active? Y Date of Last Pap Date of Last Pap Smear 04/05/2018 Most Recent Mammogram 08/12/2020 Current Control Method Hysterectom y Obstetrics History GPAL:G 1 P 1 0 0 1 Type Value Multiple Births 0 Full Term 1 Induced 0 Spontaneous 0 Premature 0 Living 1 Ectopics 0 Total 1 Immunizations Vaccine Type Date Status Note Provider Nam e and Address Organization Details Recorded Time COVID-19, mRNA, LNP-S, PF, 30 mcg/0.3 mL dose 1 completed Not Available [facility] 12/28/2022 02:55:27 COVID-19, mRNA, LNP-S, PF, 100 mcg/0.5mL dose or 50 mcg/0.25mL dose 1 completed Not Available [facility] 12/28/2022 02:55:28 zoster recombinant 0 completed Not Available [facility] 12/28/2022 02:55:28 Influenza, split virus, quadrivalent, preservative 9 completed Not Available [facility] 12/28/2022 02:55:28 Influenza, split virus, quadrivalent, preservative 8 completed Not Available [facility] 12/28/2022 02:55:28 Influenza, split virus, quadrivalent, preservative 7 completed Not Available [facility] 12/28/2022 02:55:28 Influenza, split virus, quadrivalent, preservative 6 completed Not Available [facility] 12/28/2022 02:55:28 Influenza, split virus, trivalent, preservative 2 completed Not Available [facility] 12/28/2022 02:55:28 Influenza, split virus, quadrivalent, PF 0 completed Not Available [facility] 12/28/2022 02:55:28 pneumococcal polysaccharide PPV23 0 completed Not Available [facility] 12/28/2022 02:55:29 Pneumococcal conjugate PCV 13 7 completed Not Available [facility] 12/28/2022 02:55:29 Tdap 7 completed Not Available [facility] 12/28/2022 02:55:29 Past Encounters Encounter ID Performer Location Encounter Start Date Encounter Closed Date Diagnosis/Indication Diagnosis SNOMED-CT Code Diagnosis ICD10 Code Diagnosis Note [id number] [facility] [place] [place] [address] [place] [address] 01/11/2021 00:00:00 01/11/2021 09:43:23 [id number] [facility] [address] [facility] 15 [place] [address] 01/13/2021 00:00:00 01/26/2021 16:07:20 [id number] [facility] [address] [facility] 15 [place] [address] 01/22/2021 00:00:00 01/22/2021 17:48:35 [id number] [facility] [place] [address] [place] [address] 03/01/2021 00:00:00 03/04/2021 10:03:59 [id number] [facility] [place] [address] [place] [address] 03/18/2021 00:00:00 03/18/2021 15:22:39 [id number] [facility] [place] [address] [place] [address] 04/12/2021 00:00:00 04/12/2021 14:22:13 [id number] [facility] [place] [address] [place] [address], [address] [place] [address] 04/27/2021 00:00:00 04/27/2021 14:10:47 [id number] [facility] [place] [address] [place] [address] 05/11/2021 00:00:00 05/11/2021 15:17:51 [id number] [facility] [place] [address] [place] [address] 05/18/2021 00:00:00 05/18/2021 09:53:45 [id number] [facility] [place] [address] [place] [address] 05/24/2021 00:00:00 07/12/2021 15:27:08 [id number] _ATHENA_M IGRATION_ DEFAULT_1 _1 , 06/18/2021 00:00:00 06/18/2021 11:44:49 [id number] [facility] [place] [address] [place] [address] 07/20/2021 00:00:00 07/20/2021 13:15:56 [id number] [facility] [place] [address] [facility], [place] [address] [place] [address] 07/23/2021 00:00:00 07/23/2021 11:04:50 [id number] [facility] [place] [address] [place] [address] 07/28/2021 00:00:00 07/28/2021 14:35:06 [id number] [facility] [place] [address] [place] [address] 08/18/2021 00:00:00 08/18/2021 17:40:43 [id number] [facility] [place] [address] [place] [address] 09/13/2021 00:00:00 09/13/2021 12:44:28 [id number] [facility] [place] [address] [place] [address] 11/17/2021 00:00:00 12/08/2021 15:35:58 [id number] [facility] [place] [address] [place] [address] 12/20/2021 00:00:00 12/20/2021 09:50:57 [id number] [facility] [place] [address] [place] [address] 02/14/2022 00:00:00 02/14/2022 15:45:35 [id number] [facility] [place] [address] [place] [address] [place] [address] 05/04/2022 00:00:00 05/04/2022 12:40:39 [id number] [facility] [address] [place] [address] y , [place] [address] 06/15/2022 00:00:00 06/29/2022 16:34:46 [id number] [facility] [place] [address] [place] [address] 06/16/2022 00:00:00 06/16/2022 16:50:25 [id number] [facility] [place] [address] [place] [address] 08/02/2022 00:00:00 08/03/2022 17:09:15 [id number] [facility] [address] [place] [address] [place] [address] 09/14/2022 00:00:00 09/14/2022 16:49:12 [id number] [facility] [place] [address] [place] [address] 10/20/2022 00:00:00 10/20/2022 14:00:29 [id number] [facility] [place] [address] [place] [address] 11/07/2022 00:00:00 11/07/2022 12:58:28 [id number] [facility] [place] [address] [place] [address] 11/15/2022 00:00:00 11/15/2022 16:14:02 [id number] [facility] [place] [address] [place] [address] 12/02/2022 00:00:00 12/02/2022 17:52:13 [id number] Carmelina fontenot MD [facility] [address] [place] [address] 01/23/2023 11:30:02 01/23/2023 12:37:50 Screening - NAD [id number] Z13.9 C-scope: 02/06/19: Dr Jazmin dimas next in 5 years Mammogram: 10/27/18: NegMammogr am: 08/12/2020 : NegOrdered 11/17/2021 DEXA: 08/04/2022 : Normal PAP: Dr Rm S/p Dr Rm 10/17/19S/ p US pelvis 09/17/19OB 11/25/2019 : Dr Rm s/p surgery UTD yearly flu shotUTD tdap 06/01/17UT D PCV #13 06/01/17, get #23Did get the shingles vaccine as per her historyUTD COVID 19 vaccine Handicap placard filled out 11/28/2019 RTC in 3 monthsDo labsER if worseShe did verbalize her understand ing of the above Essential hypertension [id number] I10 On spironolac tone 50mg dailyOn losartan 100mg dailyOn diltiazem CD 120mg dailyget labs See [facility] Dr Yang Stress test 12/08/2021 : Neg Hyperlipidemia [id number] E78.5 On pravastati n 20mg dailyNot on fenofibrat e 48mg daily Diet and exerciseGe t labs Does see Dr Cardoso 12/20/2021 , next 06/20/2022 Type 2 jossie betes mellitus without complication [id number] E11.9 Type 2 diabetes mellitus without complicati onOn metformin Not on ozempic On mounjaro nowSeeing Dr Cardoso last 12/02/2022 Needs to see eye MD and has an apt with Dr Ting Maher seen Dr Adair podiatry, and was told had toe nail fungusIs to now get diabetic shoes Asthma [id number] J45.90 9 03/23/2021 : CT chest On albuterolO n albuterol HHNOn advairOn ipratropiu mOn budesonide On loratidine On singulair Not on symbicort On spirivaOn flonaseOn O2 Has seen the pulmonary MD Dr Maxwell Rheumatoid arthritis [address] Nancy Ruiz in past Dr Jitendra Dietz leflunamid eOff hydroxychl oroquineOn CelebrexOn Simponi AriaOn prednisone On tramadol, given by Dr Ham Dry eyes 142354904 H04.1 23 On restasis, does well on this Hypothyroidism 47625171 E03.9 US thyroid 11/22/18US thyroid 08/04/2020 On synthroid 88mcgs dailyGet labs and see Dr Cardoso Urinary incontinence 165 676326 R32 On oxybutynin ER 10mg daily, Sienna Pena 03/01/2021 : Dr Mi, does well, notify if any symptoms Eruption 392330662 R21 On triamcinol one Does well Pneumonia 975425513 J18. 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.9 09/14/2020 : IgG defeciency : Resubmitte d for IVIG and f.u in 4 months Since then has had sinus infections and was to see ENT and also to get CPAP Juan Moody Gastroesop hageal reflux disease without esophagitis 578327872 K21.9 On omeprazole 07/01/2021 : EGD: Dr Hernandez states 02/14/2022 that she does not need this n Generalize d anxiety disorder 14720029 F41.1 Does wellNot suicidal or homicidal, declines any referralsO n buspirone 5mg po bid Vertigo 929896030 R42 See case from 04/07/2020 ; Vertigo from getting a CT scan, started on the meclizine0 04/08/2020: Dr Pride ENT: Is to get an audiogram and VNG, c/o tinnitius S/P CT Sinuses 04/04/2020 S/p VNG 04/30/2020 On diazepam, states that she takes this very rarelyOn meclizineT akes it as needed Does see ENT Dr Pride now as needed Vitamin D deficiency 347 71910 E55.9 Low back pain 559128778 M54.50 MRI L Spine 11/09/2022 Dr Vega 11/15/2022 Skin lesion 56086116 L98 .9 Has been on dapsone, given by Dr Lawson Migraine 26290850 G43.90 9 On sumatripta n 25mg as needed given by Dr Moody Chronic sinusitis 924853 00 J32.[address] Howard on her own, finsihed her doxy, get a referral again [id number] Rip Vega MD [facility] [place] [address] [place] [address] 03/30/2023 09:12:12 03/30/2023 11:23:24 Low back pain 381437595 M54.50 Partial th ickness rotator cuff tear 967635555 M75.102 Bilateral osteoarthritis of knees 0046720323 72356 M17.0 Morbid obesity 653095184 E66.01 Sacroiliac joint pain 20 9779912 M53.3 Bilateral trochanteric bursitis 0576790922 5051293 M70.61 M70.62 Pain of ri ght shoulder joint 4338690976 0581510 M25.511 Localized, primary osteoarthritis of the shoulder region 144085060 M19.011 Pain of le ft hip joint 4017549810 89561 M25.552 [id number] Rip Vega MD [facility] [place] [address] [place] [address] 04/27/2023 11:34:16 04/27/2023 13:37:22 Pain of bilateral hands 6636510265 2995905 M79.641 M79.642 Spinal todd nosis of lumbar region 27350682 M48.062 Bilateral carpal tunnel syndrome 4580313644 0603200 G56.03 [id number] Carmelina fontenot MD [facility] Internal [facility] [place] [address] [place] [address] 05/22/2023 11:23:22 05/22/2023 12:22:26 Screening - NAD [id number] Z13.9 C-scope: 02/06/19: Dr Jazmin dimas next in 5 years Mammogram: 10/27/18: NegMammogr am: 08/12/2020 : NegMammogr am: 08/04/2022 : Neg DEXA: 08/04/2022 : Normal PAP: Dr Rm S/p Dr Rm 10/17/19S/ p US pelvis 09/17/19OB 11/25/2019 : Dr Rm s/p surgery UTD yearly flu shotUTD tdap 06/01/17UT D PCV #13 06/01/17, get #23Did get the shingles vaccine as per her historyUTD COVID 19 vaccine Handicap placard filled out 11/28/2019 RTC in 3 monthsDo labsER if worseShe did verbalize her understand ing of the above Essential hypertension 71696911 I10 On spironolac tone 50mg dailyOn losartan 100mg dailyOn diltiazem CD 120mg dailyget labs See [facility] Dr Yang Stress test 12/08/2021 : Neg Hyperlipidemia 50176972 E78.5 On pravastati n 20mg dailyNot on fenofibrat e 48mg daily Diet and exerciseGe t labs Does see Dr Cardoso 12/20/2021 , next 06/20/2022 Type 2 jossie betes mellitus without complication 987415871 E11.9 Type 2 diabetes mellitus without complicati onOn metforminN ot on ozempicOn mounjaro nowSeeing Dr Cardoso Needs to see eye MD and has an apt with Dr Ting Maher seen Dr Adair podiatry, and was told had toe nail fungusIs to now get diabetic shoes Asthma 293232656 J45.90 9 03/23/2021 : CT chest On albuterolO n albuterol HHNOn advairOn ipratropiu mOn budesonide On loratidine On singulairO n spiriva Not on symbicort On spirivaOn flonaseOn O2 Has seen the pulmonary MD Dr Maxwell Rheumatoid arthritis [address] Nancy Ruiz in past Dr Jitendra Dietz leflunamid eOff hydroxychl oroquine On CelebrexOn Simponi AriaOn prednisone On tramadol, given by Dr Ham Dry eyes 073824410 H04.1 23 On restasis, does well on this Hypothyroidism 56625259 E03.9 US thyroid 11/22/18US thyroid 08/04/2020 On unithyroid 88mcgs dailyGet labs and see Dr Cardoso Urinary incontinence 165 981512 R32 On oxybutynin ER 10mg daily, Sienna Pena 03/01/2021 : Dr Mi, does well, notify if any symptoms Eruption 052931255 R21 On triamcinol one Does well Pneumonia 890601995 J18. 9 S/p COVID 19 pneumonia, seen by Dr Sommers ID, multiple hospitaliz ationsNow sees Dr Maxwell Hyperprolactinemia 89922 2004 E22.1 04/08/2020 : Dr Pride ENT: Is to get an audiogram and VNG, as per ENT diagnosed with prolactino ma, will d/w endocrine Dr Cardoso Osteoarthritis 764064151 M19.90 Dr Vega: L shoulder rotater cuff, knee pain, Bilateral hip painNo more apts Hypoproteinemia 8496626 E88.[address] Moody Immunodefi ciency disorder 255014213 D84.9 09/14/2020 : IgG defeciency : Resubmitte d for IVIG and f.u in 4 months Since then has had sinus infections and was to see ENT and also to get CPAP Juan Moody Gastroesop hageal reflux disease without esophagitis 814318623 K21.9 On omeprazole 07/01/2021 : EGD: Dr Hernandez states 02/14/2022 that she does not need this n Generalize d anxiety disorder 30687172 F41.1 Does wellNot suicidal or homicidal, declines any referralsO n buspirone 5mg po bid Vertigo 802353110 R42 See case from 04/07/2020 ; Vertigo from getting a CT scan, started on the meclizine0 04/08/2020: Dr Pride ENT: Is to get an audiogram and VNG, c/o tinnitius S/P CT Sinuses 04/04/2020 S/p VNG 04/30/2020 On diazepam, states that she takes this very rarelyOn meclizineT akes it as needed Does see ENT Dr Bigg now as needed Vitamin D deficiency 347 54662 E55.9 Low back pain 047037807 M54.50 MRI L Spine 11/09/2022 Dr Vega 11/15/2022 Skin lesion 64358858 L98 .9 Has been on dapsone, given by Dr Lawson Migraine 05036410 G43.90 9 On sumatripta n 25mg as needed given by Dr Moody Chronic sinusitis 458500 [address] sinus: 04/20/[address] Howard on her own Excess mai niculus of abdomen 9090392397 101 E65 Has had pannus since she has lost a weight, has noted a rash likely erin none today, refer to plastic surgery [id number] Cordelia Cardoso MD [facility] [place] [address] [place] [address] 05/30/2023 09:30:02 05/30/2023 10:24:42 Well controlled type 2 diabetes mellitus 573062526 E11.9 A1C under 5% - patient has continued losing weight up to 98 pounds over past few years and another few pounds since last visit. Will uptitrate mounjaro to 10 mg once weekly and continue with metformin for insulin sensitizat ion. Hypothyroidism 98753495 E03.9 Continue synthroid but reduce to 75 mcg daily as her FT4 is high normal range and with continued weight loss requiremen ts will continue to drop. She was reminded to take her synthroid on empty stomach with glass of water and wait one hour to eat or have her coffee in morning and up to 4 hours if ever taking any heartburn or reflux medication s to help optimize absorption . Discussed paleo like diet with restrictio n of GMOs to help with energy and to optimize absorption of vitamins and minerals and reduce inflammati on. Dyslipidemia 115615306 E 78.5 Continue statin therapy as LDL in range. Staphyloco ccal infection of skin 792010602 B95.8 Refill mupirocin for staphyloco ccal skin infections . Spent up to 25 minutes preparing to see the patient (eg, review of tests), obtaining and/or reviewing separately obtained history, performing a medically appropriat e examinatio n and evaluation , counseling and educating the patient, ordering medication s, tests, along with documentin g clinical informatio n in the electronic health record, independen tly interpreti ng results and communicat ing results to the patient. Patient can be followed by PCP - she/he is aware of my resignatio n and last day of August 11. If needed his/her PCP can refer patient to another endocrinol ogist in the area. All questions /concerns answered and refills necessary at visit today. [id number] Carmelina fontenot MD [facility] [place] [address] [facility] [place] [address] 09/18/2023 11:26:19 09/18/2023 14:15:35 Screening - NAD [id number] Z13.9 C-scope: 02/06/19: Dr Jazmin dimas next in 5 years Mammogram: 10/27/18: NegMammogr am: 08/12/2020 : NegMammogr am: 08/04/2022 : Neg DEXA: 08/04/2022 : Normal PAP: Dr Rm S/p Dr Rm 10/17/19S/ p US pelvis 09/17/19OB 11/25/2019 : Dr Rm s/p surgery UTD yearly flu shotUTD tdap 06/01/17UT D PCV #13 06/01/17, get #23Did get the shingles vaccine as per her historyUTD COVID 19 vaccineGet RSV vaccine Handicap placard filled out 11/28/2019 RTC in 3 monthsDo labsER if worseShe did verbalize her understand ing of the above Essential hypertension 42344656 I10 On spironolac tone 50mg dailyOn losartan 100mg dailyOn diltiazem CD 120mg dailyget labs See [facility] Dr Yang last OV 04/04/2023 , f/u in 6 months Stress test 12/08/2021 : Neg Hyperlipidemia 24446503 E78.5 On pravastati n 20mg dailyNot on fenofibrat e 48mg daily Diet and exerciseGe t labs Does see Dr Cardoso 12/20/2021 , next 06/20/2022 Type 2 jossie betes mellitus without complication 904675425 E11.9 Type 2 diabetes mellitus without complicati onOn metformin ER 500mg bidNot on ozempicOn mounjaro nowSeeing Dr Cardoso Needs to see eye MD and has an apt with Dr Ting Maher seen Dr Adair podiatry, and was told had toe nail fungusIs to now get diabetic shoes Asthma 739168334 J45.90 9 03/23/2021 : CT chest On albuterolO n albuterol HHNOn advairOn ipratropiu mNot on budesonide On flonaseOn loratidine On singulairO n spiriva Not on symbicort On spirivaOn O2 Has seen the pulmonary MD Dr Maxwell Rheumatoid arthritis 6[address] Nancy Ruiz in past Dr Jitendra Dietz leflunamid eOff hydroxychl oroquine On CelebrexOn Simponi AriaOn prednisone On tramadol, given by Dr Ham Dry eyes 558148497 H04.1 23 On restasis, does well on this Hypothyroidism 86514699 E03.9 thyroid 11/22/18US thyroid 08/04/2020 On unithyroid 88mcgs daily Urinary incontinence 165 675925 R32 On oxybutynin ER 10mg daily, Sienna Pena 03/01/2021 : Dr Mi, does well, notify if any symptoms Eruption 216652469 R21 On triamcinol one Does well Pneumonia 788465418 J18. 9 S/p COVID 19 pneumonia, seen by Dr Sommers [place] Maxwell Hyperprolactinemia 51691 2004 E22.1 04/08/2020 : Dr Pride ENT: Is to get an audiogram and VNG, as per ENT diagnosed with prolactino ma, will d/w endocrine Seen by Dr Cardoso Osteoarthritis 142342357 M19.90 Dr Vega: L shoulder rotater cuff, knee pain, Bilateral hip painNo more apts Hypoproteinemia 8860284 E88.[address] Moody Immunodefi ciency disorder 333869829 D84.9 09/14/2020 : IgG defeciency : Resubmitte d for IVIG and f.u in 4 months Since then has had sinus infections and was to see ENT and also to get CPAP Juan Moody Gastroesop hageal reflux disease without esophagitis 476712005 K21.9 On omeprazole 07/01/2021 : EGD: Dr Hernandez states 02/14/2022 that she does not need this n Generalize d anxiety disorder 70953340 F41.1 Does wellNot suicidal or homicidal, declines any referralsO n buspirone 5mg po bid Vertigo 283330366 R42 See case from 04/07/2020 ; Vertigo from getting a CT scan, started on the meclizine0 04/08/2020: Dr Pride ENT: Is to get an audiogram and VNG, c/o tinnitius S/P CT Sinuses 04/04/2020 S/p VNG 04/30/2020 On diazepam, states that she takes this very rarelyOn meclizineT akes it as needed Does see ENT Dr Pride now as needed Vitamin D deficiency 347 09945 E55.9 Low back pain 700968734 M54.50 MRI L Spine 11/09/2022 Dr Vega 11/15/2022 Skin lesion 05122287 L98 .9 Has been on dapsone, given by Dr Lawson Migraine 40349700 G43.90 9 On sumatripta n 25mg as needed given by Dr Moody Chronic sinusitis 346553 [address] sinus: 04/20/[address] Howard on her own Dr Howard 07/06/2023 to get surgery Excess mai niculus of abdomen 8265251448 101 E65 Has had pannus since she has lost a weight, has noted a rash likely erin none today, refer to plastic surgery Screening mammography 24 711465 Z12.31 Pain of bi lateral hands 8098212638 4064751 M79.[address] Vega 04/27/2023 [id number] Carmelina fontenot MD [facility] [place] [address] [facility] y , [place] [address] 10/16/2023 08:57:46 10/16/2023 09:47:23 Excess panniculus of abdomen 6229394224 101 E65 Has had pannus since she has lost a weight, has noted a rash likely erin none today, refer to plastic surgery Needs to see plastic surgery OV 10/16/2023 :Treated with triamcinol one in the past, also the pannus extends over the pubic area and covers the lower abdomenThe excessive weight of the pannus also causes her to get low back pain Swelling o f clavicular region 6255977922 R22.30 Get an Xray Chest [id number] Carmelina fontenot MD [facility] [place] [address] [place] [address] 01/22/2024 11:10:02 01/22/2024 12:10:56 Excess panniculus of abdomen 4292255499 101 E65 Has had pannus since she has lost a weight, has noted a rash likely erin none today, refer to plastic surgery Needs to see plastic surgery OV 10/16/2023 :Treated with triamcinol one in the past, also the pannus extends over the pubic area and covers the lower abdomenThe excessive weight of the pannus also causes her to get low back pain OV 01/22/2024 :See plastic surgery Swelling o f clavicular region 6847828792 R22.30 Get an Xray Chest Xr chest 10/16/2023 Xr chest 11/17/2023 Screening - NAD 15932885 3 Z13.9 C-scope: 02/06/19: Dr Jazmin dimas next in 5 years Mammogram: 10/27/18: NegMammogr am: 08/12/2020 : NegMammogr am: 08/04/2022 : Neg DEXA: 08/04/2022 : Normal PAP: Dr Rm S/p Dr Rm 10/17/19S/ p US pelvis 09/17/19OB 11/25/2019 : Dr Rm s/p surgery UTD yearly flu shotUTD tdap 06/01/17UT D PCV #13 06/01/17, get #23Did get the shingles vaccine as per her historyUTD COVID 19 vaccineGet RSV vaccine Handicap placard filled out 11/28/2019 RTC in 3 monthsDo labsER if worseShe did verbalize her understand ing of the above Essential hypertension 20385228 I10 On spironolac tone 50mg dailyOn losartan 100mg dailyOn diltiazem CD 120mg dailyget labs See [facility] Dr Yang last OV 04/04/2023 , f/u in 6 months Stress test 12/08/2021 : Neg Hyperlipidemia 65333329 E78.5 On pravastati n 20mg dailyNot on fenofibrat e 48mg daily Diet and exerciseGe t labs Does see Dr Cardoso 12/20/2021 , next 06/20/2022 Type 2 jossie betes mellitus without complication 541291566 E11.9 Type 2 diabetes mellitus without complicati onOn metformin ER 500mg bidNot on ozempicOn mounjaro 10mg weeklySeen by Dr Cardoso Needs to see eye MD and has an apt with Dr Ting Maher seen Dr Adair podiatry, and was told had toe nail fungusIs to now get diabetic shoes Asthma 096120641 J45.90 9 03/23/2021 : CT chest11/03: CT chest On albuterolO n albuterol HHNOn advairOn ipratropiu mNot on budesonide On flonaseOn loratidine On singulairO n spiriva Not on symbicort On spirivaOn O2 Has seen the pulmonary MD Dr Maxwell Rheumatoid arthritis [address] Nancy Ruiz in past Dr Jitendra Zaragoza leflunamid e given by Dr Ham 01/03/2024 On hydroxychl oroquine given by Dr Ham 12/28/2023 On CelebrexOn Simponi AriaOn prednisone given by Dr Hart tramadol, given by Dr Ham Dry eyes 507768639 H04.1 23 On restasis, does well on this Hypothyroidism 47681372 E03.9 US thyroid 11/22/18US thyroid 08/04/2020 On unithyroid 88mcgs daily Urinary incontinence 165 174041 R32 On oxybutynin ER 10mg daily, Sienna Pena 03/01/2021 : Dr Mi, does well, notify if any symptoms Eruption 403733378 R21 On triamcinol one Does well Pneumonia 290866500 J18. 9 S/p COVID 19 pneumonia, seen [facility] Dr Sommers [place] Hyperprolactinemia 16695 2004 E22.1 04/08/2020 : Dr Pride ENT: Is to get an audiogram and VNG, as per ENT diagnosed with prolactino ma, will d/w endocrine Seen by Dr Cardoso Osteoarthritis 363769043 M19.90 Dr Vega: L shoulder rotater cuff, knee pain, Bilateral hip pain Hypoproteinemia 3570500 E88.[address] Moody Immunodefi ciency disorder 162891905 D84.9 09/14/2020 : IgG defeciency : Resubmitte d for IVIG and f.u in 4 months Since then has had sinus infections and was to see ENT and also to get CPAP Juan Moody Gastroesop hageal reflux disease without esophagitis 947553184 K21.9 On omeprazole 07/01/2021 : EGD: Dr Hernandez states 02/14/2022 that she does not need this n Generalize d anxiety disorder 14916435 F41.1 Does wellNot suicidal or homicidal, declines any referralsO n buspirone 5mg po bid Vertigo 275619815 R42 See case from 04/07/2020 ; Vertigo from getting a CT scan, started on the meclizine0 04/08/2020: Dr Pride ENT: Is to get an audiogram and VNG, c/o tinnitius S/P CT Sinuses 04/04/2020 S/p VNG 04/30/2020 On diazepam, states that she takes this very rarelyOn meclizineT akes it as needed Does see ENT Dr Pride now as neededDid see Dr Tin Howard ENT 12/07/2023 Vitamin D deficiency 347 18628 E55.9 Low back pain 489107398 M54.50 MRI L Spine 11/09/2022 Dr Vega 11/15/2022 Skin lesion 26499969 L98 .9 Has been on dapsone, given by Dr Lawson Migraine 95606189 G43.90 9 On sumatripta n 25mg as needed given by Dr Moody Chronic sinusitis 245460 [address] sinus: 04/20/[address] Howard on her own Dr Howard 07/06/2023 to get surgery Screening mammography 24 632577 Z12.31 Pain of bi lateral hands 3836769585 6232423 M79.[address] Vega 04/27/2023 [id number] Carmelina fontenot MD [facility] [place] [address] [facility] [place] [address] 05/29/2024 14:26:51 05/29/2024 15:37:12 Screening - NAD 609403267 Z13.9 C-scope: 02/06/19: Dr Jazmin dimas next in 5 years Mammogram: 10/27/18: NegMammogr am: 08/12/2020 : NegMammogr am: 08/04/2022 : Neg DEXA: 08/04/2022 : Normal PAP: Dr Rm S/p Dr Rm 10/17/19S/ p US pelvis 09/17/19OB 11/25/2019 : Dr Rm s/p surgery UTD yearly flu shotUTD tdap 06/01/17UT D PCV #13 06/01/17, get #23Did get the shingles vaccine as per her historyUTD COVID 19 vaccineGet RSV vaccine Handicap atiyaard filled out 11/28/2019 RTC in 4 monthsDo labsER if worseShe did verbalize her understand ing of the above Excess mai niculus of abdomen 0165372230 101 E65 Has had pannus since she has lost a weight, has noted a rash likely erin none today, refer to plastic surgery Needs to see plastic surgery OV 10/16/2023 :Treated with triamcinol one in the past, also the pannus extends over the pubic area and covers the lower abdomenThe excessive weight of the pannus also causes her to get low back pain OV 01/22/2024 :See plastic surgery OV 05/03/2024 :S/p surgery Dr Radha Nichols, last OV 05/03/2024 Swelling o f clavicular region 6785342411 R22.30 Get an Xray Chest Xr chest 10/16/2023 Xr chest 11/17/2023 Essential hypertension 14686147 I10 On spironolac tone 50mg dailyOn losartan 100mg dailyOn diltiazem CD 120mg dailyget labs See [facility] Dr Yang last OV 04/04/2023 , f/u in 6 months Stress test 12/08/2021 : Neg Hyperlipidemia 89476048 E78.5 On pravastati n 20mg dailyNot on fenofibrat e 48mg daily Diet and exerciseGe t labs Does see Dr Cardoso 12/20/2021 , next 06/20/2022 Type 2 jossie betes mellitus without complication 877431067 E11.9 Type 2 diabetes mellitus without complicati onOn metformin ER 500mg bidNot on ozempicOn mounjaro 10mg weeklySeen by Dr Cardoso Needs to see eye MD and has an apt with Dr Ting Maher seen Dr Adair podiatry, and was told had toe nail fungusIs to now get diabetic shoes Asthma 379772716 J45.90 9 03/23/2021 : CT chest11/03: CT chest On albuterolO n albuterol HHNOn advairOn ipratropiu mNot on budesonide On flonaseOn loratidine On singulairO n spiriva Not on symbicort On spirivaOn O2 Has seen the pulmonary MD Dr Maxwell Rheumatoid arthritis [address] Nancy Ruiz in past Dr Jitendra Zaragoza leflunamid e given by Dr Ham 01/03/2024 On hydroxychl oroquine given by Dr Ham 12/28/2023 On CelebrexOn Simponi AriaOn prednisone given by Dr Hart tramadol, given by Dr Ham Dry eyes 209288092 H04.1 23 On restasis, does well on this Hypothyroidism 54917575 E03.9 US thyroid 11/22/18US thyroid 08/04/2020 On unithyroid 88mcgs daily Urinary incontinence 165 245963 R32 On oxybutynin ER 10mg daily, Sienna Pena 03/01/2021 : Dr Mi, does well, notify if any symptoms Eruption 874381712 R21 On triamcinol one Does well Pneumonia 911795509 J18. 9 S/p COVID 19 pneumonia, seen by Dr Sommers ID, [facility] Maxwell Hyperprolactinemia 91962 2004 E22.1 04/08/2020 : Dr Pride ENT: Is to get an audiogram and VNG, as per ENT diagnosed with prolactino ma, will d/w endocrine Seen by Dr Cardoso,refer red 05/29/2024 [address]90 [address] Vega: L shoulder rotater cuff, knee pain, Bilateral hip pain Hypoproteinemia 3975174 E88.[address] Moody Immunodefi ciency disorder 133880269 D84.9 09/14/2020 : IgG defeciency : Resubmitte d for IVIG and f.u in 4 months Since then has had sinus infections and was to see ENT and also to get CPAP Juan Moody Gastroesop hageal reflux disease without esophagitis 537415768 K21.9 On omeprazole 07/01/2021 : EGD: Dr Hernandez states 02/14/2022 that she does not need this n Generalize d anxiety disorder 99750830 F41.1 Does wellNot suicidal or homicidal, declines any referralsO n buspirone 5mg po bid Vertigo 564381768 R42 See case from 04/07/2020 ; Vertigo from getting a CT scan, started on the meclizine0 04/08/2020: Dr Pride ENT: Is to get an audiogram and VNG, c/o tinnitius S/P CT Sinuses 04/04/2020 S/p VNG 04/30/2020 On diazepam, states that she takes this very rarelyOn meclizineT akes it as needed Does see ENT Dr Pride now as neededDid see Dr Tin Howard ENT 12/07/2023 Vitamin D deficiency 347 17312 E55.9 Low back pain 941990282 M54.50 MRI L Spine 11/09/2022 Dr Vega 11/15/2022 Skin lesion 62128239 L98 .9 Has been on dapsone, given by Dr Lawson Migraine 81273098 G43.90 9 On sumatripta n 25mg as needed given by Dr Moody Chronic sinusitis 094997 [address] sinus: 04/20/[address] Howard on her own Dr Howard 07/06/2023 to get surgery Screening mammography 24 596825 Z12.31 Pain of bi lateral hands 8363260809 8375274 M79.[address] Vega 04/27/2023 Screening for osteoporosis 279503242 Z13.820 Screening for malignant neoplasm of colon 672005408 Z12.11 [id number] Carmelina fontenot MD [facility] [place] [address] [facility] [place] [address] 07/15/2024 09:06:08 07/15/2024 09:45:48 Screening - NAD 839046144 Z13.9 C-scope: 02/06/19: Dr Jazmin dimas next in 5 years, ordered see apt request on 05/29/2024 Mammogram: 10/27/18: NegMammogr am: 08/12/2020 : NegMammogr am: 08/04/2022 : Neg DEXA: 08/04/2022 : Normal PAP: Dr Rm S/p Dr Rm 10/17/19S/ p US pelvis 09/17/19OB 11/25/2019 : Dr Rm s/p surgery UTD yearly flu shotUTD tdap 06/01/17UT D PCV #13 06/01/17, get #23Did get the shingles vaccine as per her historyUTD COVID 19 vaccineGet RSV vaccine Handicap placard filled out 11/28/2019 RTC in 4 monthsDo labsER if worseShe did verbalize her understand ing of the above Excess mai niculus of abdomen [id number] 101 E65 Has had pannus since she has lost a weight, has noted a rash likely erin none today, refer to plastic surgery Needs to see plastic surgery OV 10/16/2023 :Treated with triamcinol one in the past, also the pannus extends over the pubic area and covers the lower abdomenThe excessive weight of the pannus also causes her to get low back pain OV 01/22/2024 :See plastic surgery OV 05/03/2024 :S/p surgery Dr Radha Nichols, last OV 05/03/2024 OV 07/15/2024 : See the surgeon Dr Nichols Swelling o f clavicular region [id number] R22.30 Get an Xray Chest Xr chest 10/16/2023 Xr chest 11/17/2023 Essential hypertension 55101934 I10 On spironolac tone 50mg dailyOn losartan 100mg dailyOn diltiazem CD 120mg dailyget labs See [facility] Dr Yang last OV 04/04/2023 , f/u in 6 months Stress test 12/08/2021 : Neg Hyperlipidemia 75418432 E78.5 On pravastati n 20mg dailyNot on fenofibrat e 48mg daily Diet and exerciseGe t labs Does see Dr Cardoso 12/20/2021 , next 06/20/2022 Type 2 jossie betes mellitus without complication 199345208 E11.9 Type 2 diabetes mellitus without complicati onOn metformin ER 500mg bidNot on ozempicOn mounjaro 10mg weeklySeen by Dr Cardoso Needs to see eye MD and has an apt with Dr Ting Maher seen Dr Adair podiatry, and was told had toe nail fungusIs to now get diabetic shoes Asthma 003135535 J45.90 9 03/23/2021 : CT chest11/03: CT chest On albuterolO n albuterol HHNOn advairOn ipratropiu mNot on budesonide On flonaseOn loratidine On singulairO n spiriva Not on symbicort On spirivaOn O2 Has seen the pulmonary MD Dr Maxwell Rheumatoid arthritis [address] Nancy Ruiz in past Dr Jitendra Zaragoza leflunamid e given by Dr Ham 01/03/2024 On hydroxychl oroquine given by Dr Ham 12/28/2023 On CelebrexOn Simponi AriaOn prednisone given by Dr Hart tramadol, given by Dr Jitendra Ham 05/31/2024 Dry eyes 960848812 H04.1 23 On restasis, does well on this Hypothyroidism 49494038 E03.9 US thyroid 11/22/18US thyroid 08/04/2020 On unithyroid 88mcgs daily Urinary incontinence 165 731887 R32 On oxybutynin ER 10mg daily, Sienna Pena 03/01/2021 : Dr Mi, does well, notify if any symptoms Eruption 670942474 R21 On triamcinol one Does well Pneumonia 517500377 J18. 9 S/p COVID 19 pneumonia, [facility] [place] Hyperprolactinemia 19951 2004 E22.1 04/08/2020 : Dr Pride ENT: Is to get an audiogram and VNG, as per ENT diagnosed with prolactino ma, will d/w endocrine Seen by Dr Cardoso,refer red 05/29/2024 Dr Cardoso 07/09/2024 [address]90 [address] Vega: L shoulder rotater cuff, knee pain, Bilateral hip pain Hypoproteinemia 7028563 E88.[address] Moody Immunodefi ciency disorder 310387372 D84.9 09/14/2020 : IgG defeciency : Resubmitte d for IVIG and f.u in 4 months Since then has had sinus infections and was to see ENT and also to get CPAP Juan Moody Gastroesop hageal reflux disease without esophagitis 747358775 K21.9 On omeprazole 07/01/2021 : EGD: Dr Hernandez states 02/14/2022 that she does not need this n Generalize d anxiety disorder 82633740 F41.1 Does wellNot suicidal or homicidal, declines any referralsO n buspirone 5mg po bid Vertigo 856247833 R42 See case from 04/07/2020 ; Vertigo from getting a CT scan, started on the meclizine0 04/08/2020: Dr Pride ENT: Is to get an audiogram and VNG, c/o tinnitius S/P CT Sinuses 04/04/2020 S/p VNG 04/30/2020 On diazepam, states that she takes this very rarelyOn meclizineT akes it as needed Does see ENT Dr Pride now as neededDid see Dr Tin Howard ENT 12/07/2023 Vitamin D deficiency 347 37354 E55.9 Low back pain 772767606 M54.50 MRI L Spine 11/09/2022 Dr Vega 11/15/2022 Skin lesion 94449960 L98 .9 Has been on dapsone, given by Dr Lawson Migraine 87009900 G43.90 9 On sumatripta n 25mg as needed given by Dr Moody Chronic sinusitis 032918 [address] sinus: 04/20/[address] Howard on her own Dr Howard 07/06/2023 to get surgery Screening mammography 24 508991 Z12.31 Pain of bi lateral hands 4803042920 7959643 M79.[address] Vega 04/27/2023 Screening for osteoporosis 518393036 Z13.820 Screening for malignant neoplasm of colon 318093181 Z12.11 Pain of right breast 735 2130429 N64.4 Get US/mammogr am R breast Right side d chest pain 891460260 R07.89 Addendum: 07/15/2024 :Xrays negative, case sentIs on celebrex, take this as needed, could be muscle sprain, get US/mammogr am breast, may need CT chest if not better [id number] Carmelina fontenot MD [facility] [address] [place] [address] 09/16/2024 09:38:28 09/16/2024 10:58:16 Screening - NAD 810312206 Z13.9 C-scope: 02/06/19: Dr Jazmin dimas next in 5 years, ordered see apt request on 05/29/2024 Mammogram: 10/27/18: NegMammogr am: 08/12/2020 : NegMammogr am: 08/04/2022 : NegMammogr am: 07/29/2024 : Neg DEXA: 08/04/2022 : Normal PAP: Dr Rm S/p Dr Rm 10/17/19S/ p US pelvis 09/17/19OB 11/25/2019 : Dr Rm s/p surgery Get yearly flu shotUTD tdap 06/01/17UT D PCV #13 06/01/17, get #23Did get the shingles vaccine as per her historyUTD COVID 19 vaccineGet RSV vaccine Handicap orlin filled out 11/28/2019 RTC in 4 monthsDo labsER if worseShe did verbalize her understand ing of the above 45 minutes spent with the patient, her labs were reviewed, discussed her ENT apt and updated her chart Excess mai niculus of abdomen 0202209937 101 E65 Has had pannus since she has lost a weight, has noted a rash likely erin none today, refer to plastic surgery Needs to see plastic surgery OV 10/16/2023 :Treated with triamcinol one in the past, also the pannus extends over the pubic area and covers the lower abdomenThe excessive weight of the pannus also causes her to get low back pain OV 01/22/2024 :See plastic surgery OV 05/03/2024 :S/p surgery Dr Radha Nichols, last OV 05/03/2024 OV 07/15/2024 : See the surgeon Dr Nichols Swelling o f clavicular region 3809990991 R22.30 Get an Xray Chest Xr chest 10/16/2023 Xr chest 11/17/2023 Essential hypertension 21931010 I10 On spironolac tone 50mg dailyOn losartan 100mg dailyOn diltiazem CD 120mg dailyget labs See [facility] Dr Yang last OV 04/04/2023 , f/u in 6 months Stress test 12/08/2021 : Neg Hyperlipidemia 54030632 E78.5 On pravastati n 20mg dailyNot on fenofibrat e 48mg daily Diet and exerciseGe t labs Does see Dr Cardoso 12/20/2021 , next 06/20/2022 Type 2 jossie betes mellitus without complication 110157846 E11.9 Type 2 diabetes mellitus without complicati onOn metformin ER 500mg bidNot on ozempicOn mounjaro 12.5mg weekly filled by Dr Cardoso, tolerates it well as per her history today 09/16/2024 , no MEN2 or MCT or thyroid or parathyroi d or pancreatic complaints Seen by Dr Cardoso Needs to see eye MD and has an apt with Dr Ting Maher seen Dr Adair podiatry, and was told had toe nail fungusIs to now get diabetic shoes Asthma 019163080 J45.90 9 03/23/2021 : CT chest11/03: CT chest On albuterolO n albuterol HHNOn advairOn ipratropiu mNot on budesonide On flonaseOn loratidine On singulairO n spiriva Not on symbicort On spirivaOn O2 Has seen the pulmonary MD Dr Maxwell Rheumatoid arthritis [address] Nancy Ruiz in past Dr Jitendra Zaragoza leflunamid e given by Dr Ham 01/03/2024 On hydroxychl oroquine given by Dr Ham 12/28/2023 On CelebrexOn Simponi AriaOn prednisone given by Dr Hart tramadol Dr Ham 05/31/2024 Dry eyes 305818667 H04.1 23 On restasis, does well on this Hypothyroidism 44716666 E03.9 US thyroid 11/22/18US thyroid 08/04/2020 On unithyroid 75mcgs daily, not 88mcgsHas seen Dr Cardoso Urinary incontinence 165 814221 R32 On oxybutynin ER 10mg daily, Sienna Becky 03/01/2021 : Dr iM, does well, notify if any symptoms Eruption 827474857 R21 On triamcinol one Does well Pneumonia 631314874 J18. 9 S/p COVID 19 pneumonia, seen by Dr Sommers [place], [facility] sees Dr Maxwell Hyperprolactinemia 11316 2004 E22.1 04/08/2020 : Dr Pride ENT: Is to get an audiogram and VNG, as per ENT diagnosed with prolactino ma, will d/w endocrine Seen by Dr Cardoso,refer red 05/29/2024 Dr Cardoso 07/09/20[address] Vega: L shoulder rotater cuff, knee pain, Bilateral hip pain Hypoproteinemia 3553339 E88.[address] Moody Immunodefi ciency disorder 978689108 D84.9 09/14/2020 : IgG defeciency : Resubmitte d for IVIG and f.u in 4 months Since then has had sinus infections and was to see ENT and also to get CPAP Juan Moody Gastroesop hageal reflux disease without esophagitis 584602456 K21.9 On omeprazole 07/01/2021 : EGD: Dr Hernandez states 02/14/2022 that she does not need this n Generalize d anxiety disorder 90792874 F41.1 Does wellNot suicidal or homicidal, declines any referralsN ot on buspirone 5mg po bid Vertigo 487298135 R42 See case from 04/07/2020 ; Vertigo from getting a CT scan, started on the meclizine0 04/08/2020: Dr Pride ENT: Is to get an audiogram and VNG, c/o tinnitius S/P CT Sinuses 04/04/2020 S/p VNG 04/30/2020 On diazepam, states that she takes this very rarelyOn meclizineT akes it as needed Does see ENT Dr Bigg now as neededDid see Dr Tin Howard ENT 12/07/[address] Jenae Alfonso 09/03/2024 , no more antibiotic rinses Vitamin D deficiency 347 96804 E55.9 Low back pain 077085914 M54.50 MRI L Spine 11/09/2022 Dr Vega 11/15/2022 Skin lesion 13128097 L98 .9 Has been on dapsone, given by Dr Lawson Migraine 50349312 G43.90 9 On sumatripta n 25mg as needed given by Dr Moody Chronic sinusitis 921130 [address] sinus: 04/20/[address] Howard on her own Dr Howard 07/06/2023 to get surgeryDr Jenae Alfonso 09/03/2024 , now only saline rinses, and f/u in 6 months Pain of bi lateral hands 7819884431 8217[address] M79.[address] Vega 04/27/2023 Screening for osteoporosis 574284563 Z13.820 Screening for malignant neoplasm of colon 371891723 Z12.11 Right side d chest pain 175566799 R07.89 Addendum: 07/15/2024 :Xrays negative, case sentIs on celebrex, take this as needed, could be muscle sprain, get US/mammogr am breast, may need CT chest if not better OV 09/16/2024 :Resolved Health Concerns Section Related Observation LastModified by Organization Detai ls LastModified Time None Recorded Concern Status LastModified by Organization Details LastModified Time None Recorded Advance Directives Directive N: Payers Encounter Date Sequence Insurance Name Policy Number Policy Diop Covered Member ID Diop Member ID Guarantor Name 10/16/2023 1 [facility] Moises Em [id number] Karen Em 10/16/2023 2 [place] Em [id number] Karen Em 01/22/2024 1 [facility] Moises Em [id number] Karen Em 01/22/2024 2 [place] Em [id number] Karen Em 05/29/2024 1 [facility] Moises Em [id number] Karen Em 05/29/2024 2 [place] Em [id number] Karen Em 07/15/2024 1 [facility] Moises Em [id number] Karen Em 07/15/2024 2 [place] Em [id number] Karen Em 09/16/2024 1 [facility] Moises Em [id number] Karen Chavez Manav 09/16/2024 2 [place] Em [id number] Karen Em Notes Date Note Type Note Provider Name and Address Organization Details Recorded Time 10/16/2023 text/html 12/17/18:Here to establish carePast Hx:HTNHLDAsthmaHypot hyroidismReviewed social family and surgical historyShrahul is doing well today, and did see Dr Diaz to discuss all of the above OV 11/21/2019:Here for her f/uIs doing wellNo recent labsDoes have an itchy rash on the L forearmHas seen her rheumtologist OV 02/11/2020:Here for telehealth visit she is agreeable to do this visitShe is feeling betterShe does still have some coughShe denies any fevers now, but has had 'low grade'She also has a rash in the groin, feels that it is getting betterShe would like her disability paperwork filled out also OV 07/16/2020:Tele visitShe is agreeable to this visitShe has done the labsShrahul has seen ENT, Dr Cardoso, and Dr Moody and Dr Koo feels well today OV 10/15/2020:Here for tele visit and is agreeable to do this visitShe is doing well today, has not done the labsShrahul has seen ELLIOTT and Dr Moody and now see Dr Campo OV 03/01/2021:Here for her post hosp visit, admitted on 01/23/2021 She states that she was diagnosed with COVID 19 that she likely contacted thru her son and had pneumonia and bacetermia, was d/c with a PICC lineShe did see Dr Sommers when in the hospital, she still has the PICC lineShe also c/o anxiety and wants a medication for this, she denies any suicidal or homicidal ideation or attemptsShe has to yet see Dr Moody for her IVIG but was told by her insurance that this will now have to be done by her home health as they do not pay for her to get this at Dr Moody's office OV 04/12/2021:Here for her post hosp aptShe was admitted last Monday and D/c yesterday for UTI and partial small intestine obstructionShe feels better today, still has some nausea, wants to get on zofranShe is on keflex as per her d/c hx OV 05/24/2021:Here for her f/u aptShe does wellShe did do the labs on 05/05/2021he has seen Dr Cardoso, and Dr Vega and Dr Pyle is to see Dr Ham and also Dr Moody OV 11/17/2021:Here for her post hosp aptShe was admitted for pneumonia and is now on IV antibioticsShe is here with her OV 02/14/2022:Here for her routine aptShe is doing well, was recently seen in the ER at [facility] for bronchitis and d/c without any abx, then she called Dr Maxwell who gave her the abx, doing well todayShe did do the labs, she is here with her OV 05/04/2022:Here for her routine aptShe is doing well at this time, was seen in the ER at [place] and treated with steroids and levaquin, c/o vaginal yeastNo recent labs OV 06/15/2022:Here for her f/u apt, she is feeling better now, but was admitted for a pneumonia and has to have had a PICC line and IV antibiotics OV 09/14/2022:Here for her f/u apt, she is doing well, here with her , does well OV 01/23/2023:Here for her f/u apt, she feels well today, she did see Dr Cardoso on 12/02/2022 OV 05/22/2023: Here for her f/u apt, she is doing very well, labs done on 05/12/2023 OV 09/18/2023: Here for her routine apt, she feels very well today, she did do the labs on 09/12/2023 OV 10/16/2023: Here for a visit to discuss her pannus of the abdomen, she is seeking a plastic surgeon referral and needs an office visit to discuss this, also has noted a L medial clavicle swelling, non tender Carmelina Solis MD [address], [place], [address], [place] [facility] [place] 10/16/2023 09:49:42 01/22/2024 text/html 12/17/18:Here to establish carePast Hx:HTNHLDAsthmaHypot hyroidismReviewed social family and surgical historyShe is doing well today, and did see Dr CardosoHere to discuss all of the above OV 11/21/2019:Here for her f/uIs doing wellNo recent labsDoes have an itchy rash on the L forearmHas seen her rheumtologist OV 02/11/2020:Here for telehealth visit she is agreeable to do this visitShe is feeling betterShe does still have some coughShe denies any fevers now, but has had 'low grade'She also has a rash in the groin, feels that it is getting betterShe would like her disability paperwork filled out also OV 07/16/2020:Tele visitShe is agreeable to this visitShe has done the labsShe has seen ENT, Dr Cardoso, and Dr Moody and Dr Koo feels well today OV 10/15/2020:Here for tele visit and is agreeable to do this visitShe is doing well today, has not done the labsShe has seen ENT and Dr Moody and now see Dr Campo OV 03/01/2021:Here for her post hosp visit, admitted on 01/23/2021 She states that she was diagnosed with COVID 19 that she likely contacted thru her son and had pneumonia and bacetermia, was d/c with a PICC lineShe did see Dr Sommers when in the hospital, she still has the PICC lineShe also c/o anxiety and wants a medication for this, she denies any suicidal or homicidal ideation or attemptsShe has to yet see Dr Moody for her IVIG but was told by her insurance that this will now have to be done by her home health as they do not pay for her to get this at Dr Moody's office OV 04/12/2021:Here for her post hosp aptShe was admitted last Monday and D/c yesterday for UTI and partial small intestine obstructionShe feels better today, still has some nausea, wants to get on zofranShe is on keflex as per her d/c hx OV 05/24/2021:Here for her f/u aptShe does wellShe did do the labs on 05/05/2021he has seen Dr Cardoso, and Dr Vega and Dr Pyle is to see Dr Ham and also Dr Moody OV 11/17/2021:Here for her post hosp aptShe was admitted for pneumonia and is now on IV antibioticsShe is here with her OV 02/14/2022:Here for her routine aptShe is doing well, was recently seen in the ER at [facility] for bronchitis and d/c without any abx, then she called Dr Maxwell who gave her the abx, doing well todayShe did do the labs, she is here with her OV 05/04/2022:Here for her routine aptShe is doing well at this time, was seen in the ER at [place] and treated with steroids and levaquin, c/o vaginal yeastNo recent labs OV 06/15/2022:Here for her f/u apt, she is feeling better now, but was admitted for a pneumonia and has to have had a PICC line and IV antibiotics OV 09/14/2022:Here for her f/u apt, she is doing well, here with her , does well OV 01/23/2023:Here for her f/u apt, she feels well today, she did see Dr Cardoso on 12/02/2022 OV 05/22/2023: Here for her f/u apt, she is doing very well, labs done on 05/12/2023 OV 09/18/2023: Here for her routine apt, she feels very well today, she did do the labs on 09/12/2023 OV 10/16/2023: Here for a visit to discuss her pannus of the abdomen, she is seeking a plastic surgeon referral and needs an office visit to discuss this, also has noted a L medial clavicle swelling, non tender OV 01/22/2024: Here for her f/u apt, she feels well today, was in the ER on 11/17/2023 for a pneumonia Carmelina Solis MD [address], [address], [place], [address], [place] [facility] [place] 01/22/2024 14:06:54 05/29/2024 text/html 12/17/18:Here to establish carePast Hx:HTNHLDAsthmaHypot hyroidismReviewed social family and surgical historyShe is doing well today, and did see Dr CardosoHere to discuss all of the above OV 11/21/2019:Here for her f/uIs doing wellNo recent labsDoes have an itchy rash on the L forearmHas seen her rheumtologist OV 02/11/2020:Here for telehealth visit she is agreeable to do this visitShe is feeling betterShe does still have some coughShe denies any fevers now, but has had 'low grade'She also has a rash in the groin, feels that it is getting betterShe would like her disability paperwork filled out also OV 07/16/2020:Tele visitShe is agreeable to this visitShe has done the labsShe has seen ENT, Dr Cardoso, and Dr Moody and Dr Koo feels well today OV 10/15/2020:Here for tele visit and is agreeable to do this visitShe is doing well today, has not done the labsShe has seen ENT and Dr Moody and now see Dr Campo OV 03/01/2021:Here for her post hosp visit, admitted on 01/23/2021 She states that she was diagnosed with COVID 19 that she likely contacted thru her son and had pneumonia and bacetermia, was d/c with a PICC lineShe did see Dr Sommers when in the hospital, she still has the PICC lineShe also c/o anxiety and wants a medication for this, she denies any suicidal or homicidal ideation or attemptsShe has to yet see Dr Moody for her IVIG but was told by her insurance that this will now have to be done by her home health as they do not pay for her to get this at Dr Moody's office OV 04/12/2021:Here for her post hosp aptShe was admitted last Monday and D/c yesterday for UTI and partial small intestine obstructionShe feels better today, still has some nausea, wants to get on zofranShe is on keflex as per her d/c hx OV 05/24/2021:Here for her f/u aptShe does wellShe did do the labs on 05/05/2021he has seen Dr Cardoso, and Dr Vega and Dr Pyle is to see Dr Ham and also Dr Moody OV 11/17/2021:Here for her post hosp aptShe was admitted for pneumonia and is now on IV antibioticsShe is here with her OV 02/14/2022:Here for her routine aptShe is doing well, was recently seen in the ER at [facility] for bronchitis and d/c without any abx, then she called Dr Maxwell who gave her the abx, doing well todayShe did do the labs, she is here with her OV 05/04/2022:Here for her routine aptShe is doing well at this time, was seen in the ER at [place] and treated with steroids and levaquin, c/o vaginal yeastNo recent labs OV 06/15/2022:Here for her f/u apt, she is feeling better now, but was admitted for a pneumonia and has to have had a PICC line and IV antibiotics OV 09/14/2022:Here for her f/u apt, she is doing well, here with her , does well OV 01/23/2023:Here for her f/u apt, she feels well today, she did see Dr Cardoso on 12/02/2022 OV 05/22/2023: Here for her f/u apt, she is doing very well, labs done on 05/12/2023 OV 09/18/2023: Here for her routine apt, she feels very well today, she did do the labs on 09/12/2023 OV 10/16/2023: Here for a visit to discuss her pannus of the abdomen, she is seeking a plastic surgeon referral and needs an office visit to discuss this, also has noted a L medial clavicle swelling, non tender OV 01/22/2024: Here for her f/u apt, she feels well today, was in the ER on 11/17/2023 for a pneumonia OV 05/29/2024: Here for her f/u apt, she is doing well, she has seen Dr Howard and is s/p sinus surgery Carmelina Solis MD [address], [place], [address], [facility] [place] 05/29/2024 17:23:28 07/15/2024 text/html 12/17/18:Here to establish carePast Hx:HTNHLDAsthmaHypot hyroidismReviewed social family and surgical historyShe is doing well today, and did see Dr CardosoHere to discuss all of the above OV 11/21/2019:Here for her f/uIs doing wellNo recent labsDoes have an itchy rash on the L forearmHas seen her rheumtologist OV 02/11/2020:Here for telehealth visit she is agreeable to do this visitShe is feeling betterShe does still have some coughShe denies any fevers now, but has had 'low grade'She also has a rash in the groin, feels that it is getting betterShe would like her disability paperwork filled out also OV 07/16/2020:Tele visitShe is agreeable to this visitShe has done the labsShe has seen ENT, Dr Cardoso, and Dr Moody and Dr Koo feels well today OV 10/15/2020:Here for tele visit and is agreeable to do this visitShe is doing well today, has not done the labsShe has seen ENT and Dr Moody and now see Dr Campo OV 03/01/2021:Here for her post hosp visit, admitted on 01/23/2021 She states that she was diagnosed with COVID 19 that she likely contacted thru her son and had pneumonia and bacetermia, was d/c with a PICC lineShe did see Dr Sommers when in the hospital, she still has the PICC lineShe also c/o anxiety and wants a medication for this, she denies any suicidal or homicidal ideation or attemptsShe has to yet see Dr Moody for her IVIG but was told by her insurance that this will now have to be done by her home health as they do not pay for her to get this at Dr Moody's office OV 04/12/2021:Here for her post hosp aptShe was admitted last Monday and D/c yesterday for UTI and partial small intestine obstructionShe feels better today, still has some nausea, wants to get on zofranShe is on keflex as per her d/c hx OV 05/24/2021:Here for her f/u aptShe does wellShe did do the labs on 05/05/2021he has seen Dr Cardoso, and Dr Vega and Dr Pyle is to see Dr Ham and also Dr Moody OV 11/17/2021:Here for her post hosp aptShe was admitted for pneumonia and is now on IV antibioticsShe is here with her OV 02/14/2022:Here for her routine aptShe is doing well, was recently seen in the ER at [facility] for bronchitis and d/c without any abx, then she called Dr Maxwell who gave her the abx, doing well todayShe did do the labs, she is here with her OV 05/04/2022:Here for her routine aptShe is doing well at this time, was seen in the ER at [place] and treated with steroids and levaquin, c/o vaginal yeastNo recent labs OV 06/15/2022:Here for her f/u apt, she is feeling better now, but was admitted for a pneumonia and has to have had a PICC line and IV antibiotics OV 09/14/2022:Here for her f/u apt, she is doing well, here with her , does well OV 01/23/2023:Here for her f/u apt, she feels well today, she did see Dr Cardoso on 12/02/2022 OV 05/22/2023: Here for her f/u apt, she is doing very well, labs done on 05/12/2023 OV 09/18/2023: Here for her routine apt, she feels very well today, she did do the labs on 09/12/2023 OV 10/16/2023: Here for a visit to discuss her pannus of the abdomen, she is seeking a plastic surgeon referral and needs an office visit to discuss this, also has noted a L medial clavicle swelling, non tender OV 01/22/2024: Here for her f/u apt, she feels well today, was in the ER on 11/17/2023 for a pneumonia OV 05/29/2024: Here for her f/u apt, she is doing well, she has seen Dr Howard and is s/p sinus surgery OV 07/15/2024: Here for her f/u apt, she has also noted R breast pain, no acute or remote trauma Carmelina Solis MD [address] [place] [address], [facility] [address], [place], [address], [facility] Sensitive Object 07/15/2024 13:56:47 09/16/2024 text/html 12/17/18:Here to establish carePast Hx:HTNHLDAsthmaHypot hyroidismReviewed social family and surgical historyShe is doing well today, and did see Dr Diaz to discuss all of the above OV 11/21/2019:Here for her f/uIs doing wellNo recent labsDoes have an itchy rash on the L forearmHas seen her rheumtologist OV 02/11/2020:Here for telehealth visit she is agreeable to do this visitShe is feeling betterShe does still have some coughShe denies any fevers now, but has had 'low grade'She also has a rash in the groin, feels that it is getting betterShe would like her disability paperwork filled out also OV 07/16/2020:Tele visitShe is agreeable to this visitShe has done the labsShe has seen ENT, Dr Cardoso, and Dr Moody and Dr Koo feels well today OV 10/15/2020:Here for tele visit and is agreeable to do this visitShe is doing well today, has not done the labsShe has seen ENT and Dr Moody and now see Dr Campo OV 03/01/2021:Here for her post hosp visit, admitted on 01/23/2021 She states that she was diagnosed with COVID 19 that she likely contacted thru her son and had pneumonia and bacetermia, was d/c with a PICC lineShe did see Dr Sommers when in the hospital, she still has the PICC lineShe also c/o anxiety and wants a medication for this, she denies any suicidal or homicidal ideation or attemptsShe has to yet see Dr Moody for her IVIG but was told by her insurance that this will now have to be done by her home health as they do not pay for her to get this at Dr Moody's office OV 04/12/2021:Here for her post hosp aptShe was admitted last Monday and D/c yesterday for UTI and partial small intestine obstructionShe feels better today, still has some nausea, wants to get on zofranShe is on keflex as per her d/c hx OV 05/24/2021:Here for her f/u aptShe does Janine did do the labs on 05/05/2021he has seen Dr Cardoso, and Dr Vega and Dr Pyle is to see Dr Ham and also Dr Moody OV 11/17/2021:Here for her post hosp aptShe was admitted for pneumonia and is now on IV antibioticsShe is here with her OV 02/14/2022:Here for her routine aptShe is doing well, was recently seen in the ER at [facility] for bronchitis and d/c without any abx, then she called Dr Maxwell who gave her the abx, doing well todayShe did do the labs, she is here with her OV 05/04/2022:Here for her routine aptShe is doing well at this time, was seen in the ER at [place] and treated with steroids and levaquin, c/o vaginal yeastNo recent labs OV 06/15/2022:Here for her f/u apt, she is feeling better now, but was admitted for a pneumonia and has to have had a PICC line and IV antibiotics OV 09/14/2022:Here for her f/u apt, she is doing well, here with her , does well OV 01/23/2023:Here for her f/u apt, she feels well today, she did see Dr Cardoso on 12/02/2022 OV 05/22/2023: Here for her f/u apt, she is doing very well, labs done on 05/12/2023 OV 09/18/2023: Here for her routine apt, she feels very well today, she did do the labs on 09/12/2023 OV 10/16/2023: Here for a visit to discuss her pannus of the abdomen, she is seeking a plastic surgeon referral and needs an office visit to discuss this, also has noted a L medial clavicle swelling, non tender OV 01/22/2024: Here for her f/u apt, she feels well today, was in the ER on 11/17/2023 for a pneumonia OV 05/29/2024: Here for her f/u apt, she is doing well, she has seen Dr Howard and is s/p sinus surgery OV 07/15/2024: Here for her f/u apt, she has also noted R breast pain, no acute or remote trauma OV 09/16/2024: Here for her f/u apt, she is doing well today, she did do the labs Carmelina Solis MD [address], [facility] [address], [place], [address], [place] [facility] 09/16/2024 19:17:25 OBGyn Episode No OBEpisode recorded.
[2025-01-17 09:01] LABS: Cortisol Random 6.38 ug/dL
== END 2025-01-17 07:20 | disposition home or self-care (01) ==
LOC: ANHLAB 07:22
PROVIDERS: PCP Internal Medicine; Visit Provider Internal Medicine Endocrinology, Diabetes & Metabolism
DX: E11.65 Type 2 diabetes mellitus with hyperglycemia (principal); E03.9 Hypothyroidism, unspecified
CPT/HCPCS: 36415; 80299; 82533

== ENCOUNTER 2025-02-04 11:50 | Outpatient (CLI) | payer OTHER, MEDICARE, SELFPAY ==
[2025-02-04 12:20] LABS: Hematocrit 43.3 % (37.0-47.0); Hemoglobin 13.3 g/dL (12.0-15.0); Mean Corpuscular HGB Conc 30.7 g/dl (32-36); Mean Corpuscular Hemoglobin 28.3 pg (26-34); Mean Corpuscular Volume 92.1 fl (80-100); Mean Platelet Volume 11.2 fl (7.4-10.4); Platelet Count Result 211 k/mm3 (150-375); Red Cell Distribution Width 13.4 % (11.5-14.5); White Blood Count 6.5 K/mm3 (4.5-10.0)
[2025-02-04 12:35] LABS: Alanine Aminotransferase 14 U/L (6-35); Albumin Level 4.1 g/dL (3.5-5.1); Alkaline Phosphatase 87 U/L (38-126); Anion Gap 6 mmol/L (4-12); Aspartate Amino Transferase 19 U/L (14-36); Bilirubin,Total 0.7 mg/dL (0.2-1.3); Blood Urea Nitrogen 12 mg/dL (7-17); Carbon Dioxide 29 mmol/L (22-30); Chloride 105 mmol/L (98-107); Cholesterol 170 mg/dL (0-200); Estimated Glomerular Filt Rate > 60; Glucose 77 mg/dL (65-110); HDL Direct 69 mg/dL; Potassium 3.9 mmol/L (3.4-5.0); Sodium 140 mmol/L (137-145); Triglycerides 86 mg/dL (<150)
[2025-02-04 12:46] LABS: LDL Cholesterol Direct 75 mg/dL
[2025-02-04 13:13] LABS: Free T4 Free Thyroxine 1.14 ng/dL (0.78-2.19); Vitamin D 25 Hydroxy 57.2 ng/mL
--- OUTSIDE RECORDS SUMMARY | 2025-02-04 13:16 | XMS_ITS | CONTINUITY OF CARE DOCUMENT ---
Author Name james ramirez Address Unknown Organization [facility] Address [address] [address] [place] [address] Phone [phone] Care Team Providers Care Space Operations Officer Name Role Phone Alcides RODRIGUEZ, Cha Unavailable [phone] CARMELINA MENJIVAR MD Unavailable CARMELINA MENJIVAR MD Unavailable [phone] PROBLEMS Condition Status Date Provider Notes Hypothyroidism active Cha Mcgrath MD HTN essential [...] Mcgrath MD Cardiology examination active Oli Tellez Family History of Hypertension: completed - To allison Mcgrath MD Family History of Hyperlipidemia: completed - Cha Mcgrath MD ENCOUNTERS Date Type Provider Location Encounter Diag nosis - In-person encounter Office Visit Cha Mcgrath MD [facility] - In-person encounter Office Visit Cha Mcgrath MD [facility] Cardiology examination - In-person encounter Office Visit Cha Mcgrath MD [facility] - In-person encounter Office Visit Cha Mcgrath MD [facility] - In-person encounter Office Visit Cha Mcgrath MD [facility] - In-person encounter Office Visit Cha Mcgrath MD [facility] - In-person encounter Office Visit Cha Mcgrath MD [facility] - In-person encounter Office Visit Cha Mcgrath MD [facility] - In-person encounter Office Visit Cha Mcgrath MD [facility] - In-person encounter Office Visit Cha Mcgrath MD [facility] Exposure to COVID-19 coronavirus ericardial effusion resolved 01/2021 - In-person encounter Office Visit Cha Mcgrath MD [facility] Sleep apnea, mild on CPAPDiastolic dysfunction - In-person encounter Office Visit Cha Mcgrath MD [facility] COPD - In-person encounter Office Visit Cha Mcgrath MD [facility] Family History of Hyperlipidemia:Family History of Hypertension:CAD - LAD per CT, nml stress test 02/15 - In-person encounter Office Visit Cha Mcgrath MD [facility] Morbid obesity - In-person encounter Office Visit Cha Mcgrath MD [facility] HypothyroidismHTN essentialCAD - LAD per CT, [...] s Body Mass Index (Ratio) 37.02 kg/m2 jJ Mcgrath MD blood pressure, cuff size large Gaurang joseph [place] blood pressure, diastolic 88 mm[Hg] Gaurang joseph Luke blood pressure, systolic 132 mm[Hg] [facility]o [facility] [place] oxygen saturation, oximetry 94 % [facility] pulse rate 80 /min [facility] weight E&M 209 [lb_av] Anna [facility] respiratory rate E&M 12 /min [facility] height E&M 63 [in_i] [facility] Body Mass Index (Ratio) 35.07 kg/m2 Jj Mcgrath MD blood pressure, cuff size regular [facility] blood pressure, diastolic 97 mm[Hg] [facility] blood pressure, systolic 151 mm[Hg] [facility] oxygen saturation, oximetry 96 % [facility] respiratory rate E&M 16 /min [...] blood pressure, cuff size regular Kr isty Paron blood pressure, diastolic 80 mm[Hg] Jimbo Kee [...] lder height E&M 63 [in_i] Lana Mayorga [facility] Body Mass Index (Ratio) 54.38 kg/m2 Jj Mcgrath MD pulse rate 92 /min Magy Carlin l blood pressure, diastolic 81 mm[Hg] Cy ruth ann Russo blood pressure, systolic 156 mm[Hg] Razia ever Russo blood pressure, cuff size regular Cy allatncorie Russo respiratory rate E&M 18 /min Magy Russo oxygen saturation, oximetry 99 % Magy Russo weight E&M 307 [lb_av] Magy Carlin height E&M 63 [in_i] Magy [facility] Body Mass Index (Ratio) 56.50 kg/m2 Jj Mcgrath MD respiratory rate E&M 16 /min [facility] blood pressure, diastolic 92 mm[Hg] To [facility] blood pressure, systolic 163 mm[Hg] [facility] oxygen saturation, oximetry 97 % [facility] pulse rate 87 /min [facility] weight E&M 319 [lb_av] [facility] height E&M 63 [in_i] [facility] Body Mass Index (Ratio) 57.92 kg/m2 Jj Mcgrath MD blood pressure, diastolic 84 mm[Hg] [facility] blood pressure, systolic 136 mm[Hg] Norma lynette Block oxygen saturation, oximetry 96 % Argelia Block respiratory rate E&M 16 /min Brittan Block pulse rate 78 /min Argelia Block weight E&M 327 [lb_av] Argelia Block height E&M 63 [in_i] Argelia [facility] Body Mass Index (Ratio) 57.56 kg/m2 Jj [...] NP #30, 30 days supply, [facility] , Filled 01/14/2019 SOCIAL HISTORY Date [...] Payer name Policy type / Coverage type Lanse red green party ID EFFIE [employer] Commercial insurance co [facility] [id number] [place] [id number] ADVANCE DIRECTIVES Name Date DISCUSSED - NO DECISION MADE TREATMENT PLAN Date Name Performer [id number],S, Oli Ahmedza i [id number],S, Oli Ahmedza i [id number],S, Oli Ahmedza i [id number],S, Oli Ahmedza i [id number],S, Oli Ahmedza i [id number],S, Oli Ahmedza i [id number],S, Oli Ahmedza i [id number],B, Argelia Mohinder obsmeyer [id number],S, Argelia Vines obsmeyer [id number],S, Argelia Mohinder obsmeyer [id number],S, Argelia Mohinder obsmeyer [id number],S, Argelia Mohinder obsmeyer [id number],S, Oli Ahmedza i [id number],B, Oli Ahmedza i [id number],S, Oli Ahmedza i [id number],S, Oli Ahmedza i [id number],S, Oli Ahmedza i [id number],S, Cha Mcgrath MD [id number],S, Cha Mcgrath MD [id number],S, Cha Mcgrath MD [id number],S, Cha Mcgrath MD [id number],B, Cha Mcgrath MD [id number],S, Oli Ahmedza i [id number],S, Oli Ahmedza i [id number],S, Oli Ahmedza i [id number],S, Oli Ahmedza i [id number],S, Oli Ahmedza i [id number],W, Oli Ahmedza i [id number],S, Oli Ahmedza i [id number],S, Oli Ahmedza i [id number],S, Oli Ahmedza i [id number],S, Oli Ahmedza i [id number],S, Oli Ahmedza i [id number],B, Oli Ahmedza i [id number],S, Oli Ahmedza i [id number],S, Oli Ahmedza i [id number],S, Oli Ahmedza i [id number],S, Oli Jacobs i [id number],S, Oli Jacobs i [id number],S, Oli Jacobs i [id number],S, Oli Jacobs i [id number],S, Oli Jacobs i [id number],S, Oli Jacobs i [id number],S, Oli Jacobs i [id number],S, Oli Jcaobs i Cardiology: H er updated medication list [...] mouth once a day [facility]li Tellez [facility]: H er updated medication list for this problem includes: Losartan 100 Mg Tablet (Losartan) ..... Take 1 tablet by mouth once a day Spironolactone 50 Mg Tablet (Spironolactone) ..... Take 1 tablet by mouth once a day Diltiazem Hcl 120 Mg Capsule,extended Release 24hr (Diltiazem hcl) ..... Take 1 capsule by mouth once a day Olihari Tellez Cardiology [facility] Ahmedzai Cardiology: H er updated medication list [...] needs 6mo f/up - appt scheduled Cha cMgrath MD Cardiology Oli Ahmedzai Cardiology Oli Ahmedzai [...] [facility]:Echo LVEF 60% 07/2020 David Yap Cardiology [...] [facility] follow up [facility] Cardiology follow up [facility] Cardiology Cha Mcgrath MD Cardiology Cha [...] Cardiology Tonya Franco NP Cardiology Tonya Franco EIGHT ARM OPERATOR Cardiology:Venous U/ S 01/31/19: 1 . No evidence of a deep vein thrombosis of the lower extremities bilaterally. 2 . Significant venous insufficiency of the greater saphenous vein bilaterally. 3 . Venous insufficiency of the left sapheno femoral junction. Tonya Franco EIGHT ARM OPERATOR Cardiology:Could be attributed to deconditioning vs. asthma [...] ..... Take one tablet daily Tonya Franco EIGHT ARM OPERATOR Cardiology Cha Mcgrath MD Date Name Stress [...]
--- OUTSIDE RECORDS SUMMARY | 2025-02-04 13:16 | XMS_ITS | Clinical Summary ---
Author Organization [employer] [facility] Address [address] [place] [address] Care Team Providers Care Installer Metal Flooring Name Role Phone Dirk Solis MD Primary [...] Blood-Glucose Meter (True Metrix Glucose Meter) by [facility]Non-Drug; Combo Route) route. Active blood sugar diagnostic (True Metrix Glucose Test Strip) Strip 1 Strip by See Admin Instructions route. Active lancets 1 Each by Misc.(Non-Drug; Combo Route) route. Active pravastatin (PRAVACHOL) 20 mg tablet Take 20 mg by mouth daily with supper. Active fluticasone propionate (FLONASE) 50 mcg/spray [place], Suspension nasal inhaler Administer 2 Sprays in [...] 04/10/20 20 Active influenza virus tri-split (FLUZONE 3942-6097 IM) Fluzone 1317-7072 45 mcg (15 mcg x 3)/0.5 mL [...] Encounters Date Type Department Care Team Description 01/31/2025 Abstract [facility] Oncology and Hematology - [place] [address] [place] [address] Max Moody MD 01/15/2025 External Device Data STL ABSTRACTION Provider, Abstract 01/04/2025 External Device Data ST[facility] ABSTRACTION Provider, Abstract 01/03/2025 External Device Data [place] ABSTRACTION Provider, Abstract 12/31/2024 External Device Data ST[place] ABSTRACTION Provider, Abstract 12/13/2024 Abstract [facility]ology - [place] [address] [place] [address] Max Moody MD 11/29/2024 Abstract [facility] - [place] [address] [place] [address] Max Moody MD 11/21/2024 External Device Data STL ABSTRACTION Provider, Abstract 11/19/2024 Telephone [facility] - [place] [address] [place] [address] Max Moody MD IGG Denial 11/08/2024 Orders Only [facility] - [place] [address] [place] [address] Max Moody MD 11/08/2024 Abstract [facility] - [place] [address] [place] [address] Max Moody MD from Last 3 Months [...] Comments Blood Pressure 154/77 09/18/2024 2:57 PM MEDICAID ANALYST Pulse 75 09/18/2024 2:57 PM MEDICAID ANALYST Temperature 36.6 C (97.8 F) 09/18/2024 2:57 PM MEDICAID ANALYST Respiratory Rate 16 09/18/2024 2:57 PM MEDICAID ANALYST Oxygen Saturation 91% 09/18/2024 2:57 PM MEDICAID ANALYST Inhaled Oxygen Concentration - - Weight 92.5 kg (204 lb) 09/18/2024 2:57 PM MEDICAID ANALYST Height 160 cm (5' 3 ) 05/05/2022 1:16 PM CDT Body Mass Index 36.14 05/05/2022 1:16 PM CDT Plan of Treatment Upcoming Encounters Date Type Department Care Team (Late st Contact Info) Description 03/19/2025 10:00 AM CDT Office Visit [facility]ology - [place] [address] [facility] [address] [place] [address] Max Moody MD [address] [facility] [address] [place] [address] Health Maintenance Due Date Last Done Comments DIABETES ANNUAL FOOT EXAM 1981 DIABETES MICROALBUMIN ANNUAL SCREEN 1981 LDL CHOLESTEROL ANNUAL 1981 HPV/Cotest (21-29) 1984 CERVICAL CANCER SCREENING 1993 HPV/Cotest (30-65) 1993 PAP SMEAR 1993 BREAST CANCER SCREENING 2003 [...] - T d or Tdap) 06/01/2027 06/01/2017 Insurance MEDICARE PART A AND B [facility] CHOICE [id number] Care Teams Installer Metal Flooring Relationship Specialty Start Date End Date Dirk Solis MD PCP - General Internal Medicine 04/14/20
--- OUTSIDE RECORDS SUMMARY | 2025-02-04 13:17 | XMS_ITS | Referral Summary ---
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
--- OUTSIDE RECORDS SUMMARY | 2025-02-04 13:17 | XMS_ITS ---
Author Organization [facility] [facility] Address [address] [place] [address] Care Team Providers Care Mold Runner Name Role Cordelia Roberts Primary Care Provider Medications Medication SIG (Take, Route, Fr equency, Duration) Notes Start Date End Date Status dexAMETHasone 1 MG 1 tablet at 10pm Ora lly once for 1 days 11/27/2024 Active Encounters Encounter Location Date Provider Diagnosis [facility] - Cordelia Cardoso [address] [place] [address] 11/27/2024 Cordelia Cardoso Plan Of Treatment Medication Medication Name Sig Start Date Stop Date Notes dexAMETHasone 1 MG 1 tablet at 10pm Orally once for 1 days 11/27/2024 Next Appt Details Provider Name:Cordeliajudie Cardoso, 10:00:00 AM, [address], [place], [address], Progress Notes * Ena EMhDOB: [birth year] (59 yo F)Acc No.[id number]:11/27/2024 Patient: Eric RichardsSTANISLAWRosa MORENOorah :1965 A ge:59 Y S ex:Female Address:[address] [facility], [place] [address] * Refills Start dexAMETHasone Tablet, 1 MG, Orally, 1, 1 tablet at 10pm, once, 1 days, Refills=1 * true * Date: Generated for Printi ng/Faxing/eTransmitting on: 0 02/04/2025 01:17 PM CDT
--- OUTSIDE RECORDS SUMMARY | 2025-02-04 13:17 | XMS_ITS ---
Author Organization [facility] Address [address] [facility] [address] Care Team Providers Care Portfolio Accountant Name Role Cordelia Roberts Primary Care Provider Encounters Encounter Location Date Provider Diagnosis [facility] [address] [place] [address] 11/24/2024 Cordelia Cardoso Plan Of Treatment Next Appt Details Provider Name:Cordelia Cardoso, 10:00:00 AM, [address] [place], [address], Progress Notes * Ena EMhDOB: [birth year] (59 yo F)Acc No.[id number]:11/24/2024 Patient: Karen PARISI :1965 A ge:59 Y S ex:Female Address:[address] [place] [address], [place] [address] * true * Date: Generated for Latisha kerns/Julienne/eTransmitting on: 0 02/04/2025 01:16 PM CDT
--- OUTSIDE RECORDS SUMMARY | 2025-02-04 13:17 | XMS_ITS | Clinical Summary ---
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
[2025-02-04 15:03] LABS: Creatinine Urine 40.2 mg/dL
[2025-02-04 15:12] LABS: Microalbumin Urine Random < 6.0 mg/L (0-16.7)
[2025-02-04 15:13] LABS: MALB Creatinine Ratio < 14.9 mg/g (0-30)
== END 2025-02-04 11:51 | disposition home or self-care (01) ==
PROVIDERS: PCP Internal Medicine; Visit Provider Internal Medicine
DX: E78.5 Hyperlipidemia, unspecified (principal); E11.9 Type 2 diabetes mellitus without complications; E55.9 Vitamin D deficiency, unspecified
CPT/HCPCS: 36415; 80053; 80061; 82043; 82306; 83036; 84439; 84443; 85027

== ENCOUNTER 2025-02-14 07:14 | Outpatient (CLI) | payer OTHER, MEDICARE, SELFPAY ==
--- OUTSIDE RECORDS SUMMARY | 2025-02-14 07:21 | XMS_ITS | Clinical Summary ---
Author Organization Health Plans Lakshmi soliman [facility] Address [address] [place] [address] Care Team Providers Care Cottage Attendant Name Role Phone Dirk Solis MD Primary [...] Blood-Glucose Meter (True Metrix Glucose Meter) by [facility]Non-Drug; Combo Route) route. Active blood sugar diagnostic (True Metrix Glucose Test Strip) Strip 1 Strip by See Admin Instructions route. Active lancets 1 Each by Misc.(Non-Drug; Combo Route) route. Active pravastatin (PRAVACHOL) 20 mg tablet Take 20 mg by mouth daily with supper. Active fluticasone propionate (FLONASE) 50 mcg/spray Hope, Suspension nasal inhaler Administer 2 Sprays in [...] 04/10/20 20 Active influenza virus tri-split (FLUZONE 1604-7306 IM) Fluzone 9773-0660 45 mcg (15 mcg x 3)/0.5 mL [...] Take 5 mcg by mouth daily. 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 Encounters Date Type Department Care Team Description 01/31/2025 Abstract [facility] Oncology and Hematology - [place] [address] [place] [address] Max Moody MD 01/15/2025 External Device Data ST[facility] ABSTRACTION Provider, Abstract 01/04/2025 External Device Data [facility] ABSTRACTION Provider, Abstract 01/03/2025 External Device Data [facility] ABSTRACTION Provider, Abstract 12/31/2024 External Device Data ST[facility] ABSTRACTION Provider, Abstract 12/13/2024 Abstract [facility] Oncology and Hematology [facility] [address] [place] [address] Max Moody MD 11/29/2024 Abstract [facility] Oncology and Hematology [facility] [address] [place] [address] Max Moody MD 11/21/2024 External Device Data STL ABSTRACTION Provider, Abstract 11/19/2024 Telephone [facility] On[facility] and Hematology [facility] [address] [place] [address] Max Moody MD IGG Denial from Last 3 Months Family History Medical [...] Comments Blood Pressure 154/77 09/18/2024 2:57 PM INSPECTOR AND CLIPPER Pulse 75 09/18/2024 2:57 PM [employer] AND [employer]IPPER Temperature 36.6 C (97.8 F) 09/18/2024 2:57 PM INS[employer] AND CLIPPER Respiratory Rate 16 09/18/2024 2:57 PM [employer] AND [employer]PER Oxygen Saturation 91% 09/18/2024 2:57 PM [employer] AND [employer]IPPER Inhaled Oxygen Concentration - - Weight 92.5 kg (204 lb) 09/18/2024 2:57 PM INS[employer]OR AND CLIPPER Height 160 cm (5' 3 ) 05/05/2022 1:16 PM CDT Body Mass Index 36.14 05/05/2022 1:16 PM CDT Plan of Treatment Upcoming Encounters Date Type Department Care Team (Late st Contact Info) Description 03/19/2025 10:00 AM CDT Office Visit [facility] On[facility] and Hematology - [place] [address] [facility] [address] [place] [address] Max Moody MD [address] [facility] [address] [place] [address] Health Maintenance Due Date Last [...] EXAM 02/10/2024 02/09/2023 INFLUENZA VACCINE (#1) 2024 2, 08/11/2020, 08/05/2019, Additional history exists Preventative Visit- Commercial 10/30/2024 DIABETES HBA1C Q 6 MONTHS 11/20/20242023, 03/29/2024, 05/12/2023, Additional history exists DTAP/TDAP/TD VACCINES (2 - T d or Tdap) 06/01/2027 06/01/2017 Insurance MEDICARE PART A AND B [facility] CHOICE [id number] Care Teams Cottage Attendant Relationship Specialty Start Date End Date Dirk Solis MD PCP - General Internal Medicine 04/14/20
--- OUTSIDE RECORDS SUMMARY | 2025-02-14 07:21 | XMS_ITS | Patient Health Record ---
Author Organization [facility] Address [address] [place] [address] Care Team Providers Care Manager Surgery Name Role Phone Walker Cordelia Primary Care Provider Migration, Provider Unavailable Unavailable Allergies Allergen (clinical drug ingredient) Drug/Non Drug Allergy documented on EMR Reaction Allergy Type Onset Date Status codeine Codeine Unknown Drug Allergy Active sulfadiazine sulfADIAZINE Unknown Drug Allergy A ctive fentanyl fentaNYL Unknown Drug Allergy Active amoxicillin Amoxicillin Unknown Drug Allergy Act shirley amitriptyline Amitriptyline HCl Unknown Drug Allergy Active Reason For Referral No Information Medications Medication SIG (Take, Route, Frequency, Duration) Notes Start Date End Date Status Montelukast Sodium 10 MG 1 tab(s) orally once a day for 30 day(s) 06/10/2024 Active Spironolactone 50 MG 1 tab(s) orally for 30 day(s) 06/10/2024 Active D3 50 MCG 1 CAP(S) ORALLY ONCE A DAY for 30 DAY(S) *Please review and pick correct strength-formula tion from [employer] options. If intended option is not shown, discontinue and re-order from Quick Search* 06/10/2024 Active busPIRone HCl 5 MG 1 tab(s) orally 2 times a day for 30 day(s) 06/10/2024 Active Leflunomide 20 MG 1 tab(s) orally once a day for 30 day(s) 06/10/2024 Active Omeprazole 40 MG 1 cap(s) orally once a day for 30 day(s) 06/10/2024 Active Pravastatin Sodium 20 MG 1 tab(s) orally once a day for 30 day(s) 06/10/2024 Active Hydroxychloroquine Sulfate 200 MG 1 tab(s) orally once a day for 30 day(s) twice daily 06/10/2024 Active Estradiol 0.05 MG/24HR 1 PATCH transdermally 2 times a week for 90 days 08/26/2024 Active Arnuity Ellipta FUROATE 50 MCG DIRECTED INHALED EVERY 24 HOURS *Please review and pick correct strength-formula tion from [employer] options. If intended option is not shown, discontinue and re-order from Quick Search* 06/10/2024 Active Liothyronine Sodium 5 MCG 1 tab(s) orally once a day for 90 days 08/26/2024 Active Fluticasone-Salmeterol 500 MCG-50 MCG 1 INH INHALED 2 TIMES A DAY for 30 DAY(S) *Please review and pick correct strength-formula tion from [employer] options. If intended option is not shown, discontinue and re-order from Quick Search* 06/10/2024 Active Vitamin E 180 MG 1 CAP(S) ORALLY ONCE A DAY *Please review and pick correct strength-formula tion from [employer] options. If intended option is not shown, discontinue and re-order from Quick Search* Active Mounjaro 12.5 MG/0.5ML as directed subcutaneously once a week Active Ondansetron HCl 4 MG 1 tab(s) orally every 8 hours twice daily if needed after infusions for IGG 06/10/2024 Active Unithroid 75 MCG (0.075 MG) for 90 DAYS *Please review and pick correct strength-formula tion from [employer] options. If intended option is not shown, discontinue and re-order from Quick Search* Active predniSONE 2.5 MG 1 tab(s) orally once a day for 30 day(s) only for flares 06/10/2024 Active Gabapentin 100 MG 1 cap(s) orally 3 times a day Active Mupirocin 2 % 1 shelbie applied topically 3 times a day for 90 days 06/10/2024 Active Celecoxib 200 MG 1 cap(s) orally once a day for 30 day(s) two caps per day 06/10/2024 Active DILTIAZEM (EQV-CARDIZEM CD) 120 MG/24 HOURS 1 CAP(S) ORALLY ONCE A DAY for 30 DAY(S) *Please review for potential replacement for e-prescription and drug interaction check* 06/10/2024 Active Mounjaro 15 MG/0.5ML as directed Subcutaneous weekly for 90 days 11/25/2024 Active Gamunex-C 10% DIRECTED INTRAVENOUSLY EVERY 4 WEEKS *Please review and pick correct strength-formula tion from [employer] options. If intended option is not shown, discontinue and re-order from Quick Search* Active SUMAtriptan Succinate 25 MG 1 tab(s) orally once 06/10/2024 Active Albuterol Sulfate HFA 108 (90 Base) MCG/ACT 2 puff(s) inhaled every 6 hours 06/10/2024 Active Triamcinolone Acetonide 0.1% 1 SHELBIE ORALLY 2 TIMES A DAY (AFTER MEALS) *Please review and pick correct strength-formula tion from [employer] options. If intended option is not shown, discontinue and re-order from Quick Search* Active Cyanocobalamin 1000 MCG/ML inject 1000 mcg subcutaneously once weekly for 90 days 06/10/2024 Active Liothyronine Sodium 5 MCG 1 to 2 tablet on an empty stomach Orally once daily in afternoon for 90 days 11/25/2024 Active DAPSONE TOPICAL 5% 1 SHELBIE APPLIED TOPICALLY 2 TIMES A DAY *Please review for potential replacement for e-prescription and drug interaction check* Active Tavaborole 5 % 1 shelbie applied topically once a day for 48 week(s) 06/10/2024 Active 24 HOUR ALLERGY RELIEF 10 [...] for 30 day(s) twice daily 06/10/2024 Active dexAMETHasone 1 MG 1 tablet at 10pm Orally once for 1 days 11/27/2024 Active Problems Problem Type SNOMED Code ICD Code Onset Dates Problem Status W/U Status Risk Notes Problem Vitamin D deficiency (59338957) Vitamin D deficiency, unspecified (E55.9) Active confirmed Problem Hyperglycemia due to type 2 diabetes mellitus (127898747596608) Type 2 diabetes mellitus with hyperglycemia (E11.65) Active confirmed Problem Hyperlipidemia (19456237) Hyperlipidemia, unspecified (E78.5) Active confirmed Problem Hypothyroidism (31243354) Hypothyroidism, unspecified (E03.9) Active confirmed Problem Obesity (613097096) Obesity, unspecified (E66.9) Active confirmed Problem Menopause (727595913) Menopausal and female climacteric states (N95.1) Active confirmed Vital Signs Heart Rate 80 /min 11/25/2024 SPO2: 96% Respiratory Rate 12 /min 07/09/2024 Blood pressure diastolic 80 mm Hg 11/25/2024 SPO 2: 96% Height 63 in 11/25/2024 SPO2: 96% Blood pressure systolic 154 mm Hg 11/25/2024 SPO2 : 96% Weight 202 lbs 11/25/2024 SPO2: 96% BMI 35.78 kg/m2 11/25/2024 SPO2: 96% Encounters Encounter Location Date [facility] Cordelia Shijiebang [address] [place] [address] 08/26/2024 Cordelia Cardoso Type 2 diabetes mellitus with hyperglycemia E11.65 ; Vitamin D deficiency, unspecified E55.9 ; Hyperlipidemia, unspecified E78.5 ; Hypothyroidism, unspecified E03.9 ; Menopausal and female climacteric states N95.1 ; Obesity, unspecified E66.9 and Dietary counseling and surveillance Z71.3 [facility] [address] [place] [address] 11/25/2024 Cordelia Cardoso Type 2 diabetes mellitus with hyperglycemia E11.65 ; Hyperlipidemia, unspecified E78.5 ; Hypothyroidism, unspecified E03.9 ; Obesity, unspecified E66.9 and Dietary counseling and surveillance Z71.[address] [facility] [address] [place] [address] 09/14/2024 Provider Migration Hypothyroidism, unspecified E03.9 and Menopausal and female climacteric states N95.1 [facility] [address] [place] [address] 06/10/2024 Cordelia Cardoso Type 2 diabetes mellitus with hyperglycemia E11.65 ; Hyperlipidemia, unspecified E78.5 ; Abnormal weight gain R63.5 ; Vitamin D deficiency, unspecified E55.9 ; Other fatigue R53.83 ; Vitamin B12 deficiency anemia, unspecified D51.9 and Hypothyroidism, unspecified E03.9 [facility] - Cordelia Cardoso [address] [place] [address] 07/02/2024 Cordelia Cardoso [facility] - Cordelia Cardoso [address] [place] [address] 07/02/2024 Cordelia Cardoso [facility] [facility] [address] [place] [address] 11/24/2024 Cordelia Cardoso [facility] - Cordelia Cardoso [id number] [place] [address] 11/27/2024 Cordelia [facility] - Cordelia Cardoso [address] [place] [address] 07/09/2024 Cordelia Cardoso Type 2 diabetes mellitus with hyperglycemia E11.65 ; Vitamin D deficiency, unspecified E55.9 ; Hyperlipidemia, unspecified E78.5 ; Hypothyroidism, unspecified E03.9 and Dietary counseling and surveillance Z71.3 Assessments Encounter Date Diagnosis (ICD Code) Assessment Notes Treatment Notes Treatment Clinical Notes Section Notes 08/26/2024 Vitamin D deficiency, unspecified (ICD-10 - E55.9) 08/26/2024 Type 2 diabetes mellitus with hyperglycemia (ICD-10 - E11.65) 11/25/2024 Type 2 diabetes mellitus with hyperglycemia (ICD-10 - E11.65) 06/10/2024 Type 2 diabetes mellitus with hyperglycemia (ICD-10 - E11.65) Send for A1C and insulin- she has lost over 130 pounds since the past 1.5 years on mounjaro. Continue and uptitrate mounjaro to 12.5 mg weekly as she is tolerating well. She has no history of pancreatitis or medullary thyroid cancer and is willing to trial on a GLP1 agonist therapy. She was advised to contact clinic if he/she experiences any nausea, vomiting or significant thyroid pain/swelling or abdominal pain so we can discuss and discontinue and potentiually look into other therapy. Discussed carb counting and how to read food labels. Recommended patient to utilize the diabetesGlokaliseb.Y Combinator from the ADA website to help with food preparation as this presents ideal carb content per meal and will make carb counting easier for patient. Recommended she incorporate natural insulin sensitizers such as pears, apples, cinnamon, edison and sweet potatoes to help mobilize her endogenous insulin. Recommended up to 150 minutes of moderate level activity /exercise per week. 06/10/2024 Hyperlipidemia, unspecified (ICD-10 - E78.5) Send for lipid panel to assess need to modify therapy further. 07/09/2024 Vitamin D deficiency, unspecified (ICD-10 - E55.9) Vit D at 70 ng/mL- continue on vitamin D 3 4000 IU daily for bone and immune health. 07/09/2024 Type 2 diabetes mellitus with hyperglycemia (ICD-10 - E11.65) Discussed carb counting and how to read food labels. Recommended patient to utilize the diabetesIdeaOffer.Y Combinator from the ADA website to help with food preparation as this presents ideal carb content per meal and will make carb counting easier for patient. Recommended she incorporate natural insulin sensitizers such as pears, apples, cinnamon, edison and sweet potatoes to help mobilize her endogenous insulin. Recommended up to 150 minutes of moderate level activity /exercise per week. Continue on mounjaro 10 mg weekly along with metformin 500 mg twice daily with meals. 08/26/2024 Hyperlipidemia, unspecified (ICD-10 - E78.5) 11/25/2024 Hyperlipidemia, unspecified (ICD-10 - E78.5) 06/10/2024 Abnormal weight gain (ICD-10 - R63.5) Send for DST to screen for hypercortisolism. 07/09/2024 Hyperlipidemia, unspecified (ICD-10 - E78.5) LDL and TC in range- continue pravastatin. 08/26/2024 Hypothyroidism, unspecified (ICD-10 - E03.9) 11/25/2024 Hypothyroidism, unspecified (ICD-10 - E03.9) 09/14/2024 Hypothyroidism, unspecified (ICD-10 - E03.9) 06/10/2024 Vitamin D deficiency, unspecified (ICD-10 - E55.9) Send for vitamin D as goal of 50 ng/mL to optimize bone and immune health. 07/09/2024 Hypothyroidism, unspecified (ICD-10 - E03.9) TSH / FT4 in range- continue on unithroid 75 mcg daily. 08/26/2024 Menopausal and female climacteric states (ICD-10 - N95.1) 11/25/2024 Obesity, unspecified (ICD-10 - E66.9) 09/14/2024 Menopausal and female climacteric states (ICD-10 - N95.1) 06/10/2024 Other fatigue (ICD-10 - R53.83) Send for thyroid and vitamin panel. 07/09/2024 Dietary counseling and surveillance (ICD-10 - Z71.3) Discussed dietary measures in regards to weight loss- importance to restrict calories to 1200 per day if sedentary vs 7811-2867 calories depending on caloric expenditure. She was provided information on [email or web address] as this program manages metabolic syndrome and products include insulin sensitizers along with thyroid support/supplementation to help tailor weight loss in individuals who struggle with underlying autoimmune thyroid conditions and hyperglycemia (fasting glucose of 89 mg/dL). Spent up to 20 minutes discussing alternative weight loss options. 08/26/2024 Obesity, unspecified (ICD-10 - E66.9) 11/25/2024 Dietary counseling and surveillance (ICD-10 - Z71.3) 06/10/2024 Vitamin B12 deficiency anemia, unspecified (ICD-10 - D51.9) Send for syringes/handwritten script provided and start on B12 1000 mcg weekly. 08/26/2024 Dietary counseling and surveillance (ICD-10 - Z71.3) 06/10/2024 Hypothyroidism, unspecified (ICD-10 - E03.9) Send for full thyroid panel and continue synthroid 75 mcg daily. Continue with water only and wait one hour to have food/meds etc. 06/10/2024 Other Spent 45 minutes preparing to see the patient (ex review of tests/chart), obtaining and / or reviewing separately obtained history, performing a medically appropriate examination and/or evaluation, counseling and educating the patient/family/caregiver, ordering medications, tests, or procedures, referring and communicating with other health critical care unit nurse, documenting clinical information in the electronic or other health record, independently interpreting results and communicating results to the patient/family/caregiver and care coordinating patient plan. Patient alert and oriented x 4 and aware of discussion noted above and in agreeance to plan in management of type 2 DM, hypothyroidism, abnormal weight gain, B12 def and fatigue. Refill mupirocin as she has hx of MRSA related skin infections. 07/09/2024 Other Spent 25 minutes preparing to see the patient (ex review of tests/chart), obtaining and / or reviewing separately obtained history, performing a medically appropriate examination and/or evaluation, counseling and educating the patient/family/caregiver, ordering medications, tests, or procedures, referring and communicating with other health critical care unit nurse, documenting clinical information in the electronic or other health record, independently interpreting results and communicating results to the patient/family/caregiver and care coordinating patient plan. Patient alert and oriented x 4 and aware of discussion noted above and in agreeance to plan in management of DM, hypothyroidism, weight management, dyslipidemia and vitamin D/B12 def. Due to the nature of telemedicine, the ability to do physical assessment was limited to what can be accomplished by patient directed telehealth visit based on instruction. Those limits are understood by the patient and myself. Impression is based on history, available information, and physical findings accomplished with telehealth visit. Chronic disease/problem list/ medication list reviewed and updated where indicated. Discussed diagnosis, plan including risks, benefits, and options of treatment. Advised to call for new, worsening, or persistent symptoms. Level of patient risk was of moderate complexity due to the documented nature of presentation, the information assessment required and the nature of the development of an evaluation and treatment plan as documented. PMH, FHx, SHx, Surgical Hx, Quality management review carried out and addressed as documented today as part of this visit. Medication list was reviewed and adjusted as indicated. Medication requiring a refill was addressed. Risk and benefits of any new medications were discussed and all questions were answered. 08/26/2024 Other Assessment and Plan: 1. Hypothyroidism- Continue Unithroid 75 mcg daily- Add liothyronine in the afternoon as adjunct therapy for cold intolerance and energy- Monitor T3 levels and adjust dosage as needed to maintain optimal levels 2. Vitamin D deficiency- Continue Vitamin D 4000 IU daily 3. Vitamin B12 deficiency- Continue B12 shots as prescribed 4. Fibrocystic breast changes- Trial of Vitamin E as prescribed by Dr. Luz- Reevaluate symptoms after six weeks 5. Menopausal symptoms- Prescribe estrogen cream for vaginal dryness- Add estrogen patch for longer-term lubrication, alternate with cream- Monitor for any side effects or changes in symptoms 6. Migraine- Continue GammaFlex infusions every three months- Consider non-caffeine related triggers and management strategies 7. Sleep issues- Encourage use of melatonin, Benadryl, NyQuil, or Tylenol PM as needed- Avoid Ambien and Lunesta due to concerns about side effects 8. Nutrition and weight management- Encourage protein shakes as a supplement to improve diet- Monitor weight fluctuations and adjust Mounjaro dosage if weight gain occurs 9. Diabetes management- A1c at 5.4, continue current management plan- Encourage Crystal to attend appointments and complete blood work as needed 10. Cortisol suppression test- Results at 1.06, continue monitoring as needed Spent 25 minutes preparing to see the patient (ex review of tests/chart), obtaining and / or reviewing separately obtained history, performing a medically appropriate examination and/or evaluation, counseling and educating the patient/family/caregiver, ordering medications, tests, or procedures, referring and communicating with other health critical care unit nurse, documenting clinical information in the electronic or other health record, independently interpreting results and communicating results to the patient/family/caregiver and care coordinating patient plan. Patient alert and oriented x 4 and aware of discussion noted above and in agreeance to plan in management of well controlled type 2 DM, weight management/obesity, hypothyroidism, menopausal/hormone changes and vit D def. 11/25/2024 Other Assessment and Plan: Endocrine disordersPatient [...] the possibility of port placement with a equal opportunity director, evaluating the risks and benefits.Explore the option [...] procedures, referring and communicating with other health critical care unit nurse, documenting clinical information in the electronic or other health record, independently interpreting results and communicating results to the patient/family/caregiver and care coordinating patient plan. Patient alert and oriented x 4 and aware of discussion noted above and in agreeance to plan in management of type 2 DM/well controlled, hyperlipidemia, hypothyroidism, weight management/obesity. Plan Of Treatment Next Appt Details Provider Name:Cordelia Cardoso, 10:00:00 AM, [address] , [place], [address], Insurance Providers Payer Name Payer Address Payer Phone Subscriber Number Group Number Insured Name Patient Relationship to Insured Coverage Start Date Coverage End Date [facility] [address] [address] [place] [address] [id number] Karen Em Self - patient is the insured [facility] Medicare Part B [place] Claims Department [address] [address] [place] [address] [id number] Karen Em Self - patient is the insured Medical (General) History Medical History History ICD Code type 2 DM hypothyroidism IGG deficiency rheumatoid arthritis dyslipidemia vitamin D deficiency
--- OUTSIDE RECORDS SUMMARY | 2025-02-14 07:21 | XMS_ITS | CONTINUITY OF CARE DOCUMENT ---
Author Name james ramirez Address Unknown Organization [facility] Address [address] [facility] [address] [place] [address] Phone [phone] Care Team Providers Care [place] Operator Name Role Phone Alcides RODRIGUEZ, Cha Unavailable [phone] CARMELINA MENJIVAR MD Unavailable [phone] CARMELINA MENJIVAR MD Unavailable PROBLEMS Condition Status [...] In-person encounter Office Visit Cha Mcgrath MD [facility] - In-person encounter Office Visit Cha Mcgrath MD [facility] Cardiology examination - In-person encounter Office Visit Cha Mcgrath MD [facility] - In-person encounter Office Visit Cha Mcgrath MD [facility] - In-person encounter Office Visit Cha Mcgrath MD [facility] - In-person encounter Office Visit Cha Mcgrath MD [facility] - In-person encounter Office Visit Cha Mcgrath MD [facility] - In-person encounter Office Visit Cha Mcgrath MD [facility] - In-person encounter Office Visit Cha Mcgrath MD [facility] Office - In-person encounter Office Visit Cha Mcgrath MD [facility] Exposure to COVID-19 coronavirus ericardial effusion resolved 01/2021 - In-person encounter Office Visit Cha Mcgrath MD [facility] Sleep apnea, mild on CPAPDiastolic dysfunction - In-person encounter Office Visit Cha Mcgrath MD [facility] COPD - In-person encounter Office Visit Cha Mcgrath MD [facility] Family History of Hyperlipidemia:Family History of Hypertension:CAD - LAD per CT, nml stress test 02/15 - In-person encounter Office Visit Cha Mcgrath MD [facility] Morbid obesity - In-person encounter Office Visit Cha Mcgrath MD [facility] HypothyroidismHTN essentialCAD - LAD per CT, [...] blood pressure, cuff size large Gaurang joseph [place] blood pressure, diastolic 88 mm[Hg] Gaurang joseph [facility] blood pressure, systolic 132 mm[Hg] [facility] [place] oxygen saturation, oximetry 94 % [facility] 80 /min [facility] weight E&M 209 [lb_av] [facility] respiratory rate E&M 12 /min [facility] height E&M 63 [in_i] [facility] Body Mass Index (Ratio) 35.07 kg/m2 Jj Mcgrath MD blood pressure, cuff size regular [facility] blood pressure, diastolic 97 mm[Hg] [facility] blood pressure, systolic 151 mm[Hg] [facility] oxygen saturation, oximetry 96 % [facility] respiratory rate E&M 16 /min Mindy M [...] lder height E&M 63 [in_i] Lana May[facility]a [facility] Body Mass Index (Ratio) 54.38 kg/m2 Jj Mcgrath MD pulse rate 92 /min Magy Carlin l blood pressure, diastolic 81 mm[Hg] Cy ruth ann [facility] blood pressure, systolic 156 mm[Hg] Razia ever [facility] blood pressure, cuff size regular Cy allanjcorie [facility] respiratory rate E&M 18 /min Magy [facility] oxygen saturation, oximetry 99 % Magy Russo weight E&M 307 [lb_av] Magy Carlin height E&M 63 [in_i] Magy [facility] Body Mass Index (Ratio) 56.50 kg/m2 Jj Mcgrath MD respiratory rate E&M 16 /min [facility] blood pressure, diastolic 92 mm[Hg] To [facility] blood pressure, systolic 163 mm[Hg] [facility] oxygen saturation, oximetry 97 % [facility] pulse rate 87 /min [facility] weight E&M 319 [lb_av] [facility] height E&M 63 [in_i] [facility] Body Mass Index (Ratio) 57.92 kg/m2 Jj Mcgrath MD blood pressure, diastolic 84 mm[Hg] [facility] blood pressure, systolic 136 mm[Hg] Norma lynette [facility] oxygen saturation, oximetry 96 % Argelia Block respiratory rate E&M 16 /min Brittan Block pulse rate 78 /min Argelia [facility] weight E&M 327 [lb_av] Argelia Block height E&M 63 [in_i] Argelia [facility] Body Mass Index (Ratio) 57.56 kg/m2 Jj [...] NP #30, 30 days supply, [facility] F[facility] 01/14/2019 SOCIAL HISTORY Date Observation [...] Payer name Policy type / Coverage type [place] [employer] [place] party ID LAMAR [employer] Commercial insurance co [facility] [id number] MEDICARE [place] [id number] ADVANCE DIRECTIVES Name Date DISCUSSED - NO DECISION MADE TREATMENT PLAN Date Name Performer [id number],S, Oli Ahmedza i [id number],S, Oli Ahmedza i [id number],S, Oli Ahmedza i [id number],S, Oli Ahmedza i [id number],S, Oli Ahmedza i [id number],S, Oli Ahmedza i [id number],S, Oli Ahmedza i [id number],B, Argelia Mohinder obsmeyer [id number],S, Argeila Vines obsmeyer [id number],S, Argelia Mohinder obsmeyer [id number],S, Argelia Mohinder obsmeyer [id number],S, Argelia Mohinder obsmeyer [id number],S, Oli Ahmedza i [id number],B, Oli Ahmedza i [id number],S, Oli Ahmedza i [id number],S, Oli Ahmedza i [id number],S, Oli Ahmedza i [id number],S, Cha Mcgrath MD [id number],S, Cha Mcgrath MD [id number],S, Cha Mcgrath MD [id number],S, Cha Mcgrath MD [id number],B, Cha Mcgrath MD [id number],S, Oli Ahmedza i [id number],S, Oli Ahmedza i [id number],S, Oli Ahmedza i [id number],S, Oli Ahmedza i [id number],S, Oli Ahmedza i [id number],W, Oli Ahmedza i [id number],S, Oli Ahmedza i [id number],S, Oli Ahmedza i [id number],S, Oli Ahmedza i [id number],S, Oli Ahmedza i [id number],S, Oli Ahmedza i [id number],B, Oli Ahmedza i [id number],S, Oli Ahmedza i [id number],S, Oli Ahmedza i [id number],S, Oli Ahmedza i [id number],S, Oli Jacobs i [id number],S, Oli Jacobs i [id number],S, Oli Jacobs i [id number],S, Oli Jacobs i [id number],S, Oli Jacobs i [id number],S, Oli Jacobs i [id number],S, Oli Jacobs i [id number],S, Oli Jacobs i Cardiology: H er updated [...] mouth once a day [facility]ellez [facility]: H er updated medication list for this problem includes: Losartan 100 Mg Tablet (Losartan) ..... Take 1 tablet by mouth once a day Spironolactone 50 Mg Tablet (Spironolactone) ..... Take 1 tablet by mouth once a day Diltiazem Hcl 120 Mg Capsule,extended Release 24hr (Diltiazem hcl) ..... Take 1 capsule by mouth once a day Olihari Tellez Cardiology [facility] Ahmedzai Cardiology: H er updated medication [...] Jhon Nacht Telehealth David Yap Telehealth David aYp Telehealth David Yap Telehealth [facility] Telehealth [facility] Telehealth [facility]Echo LVEF 60% 07/2020 David Yap Cardiology follow up :Check home sleep. Davdi Yap Cardiology follow up : B P [...] [facility] Cardiology follow up [facility] Cardiology follow up [facility] Cardiology Cha Mcgrath MD Cardiology Cha [...] Cardiology Tonya Franco NP Cardiology Tonya Franco REGIONAL HR MANAGER Cardiology:Venous U/ S 01/31/19: 1 . No evidence of a deep vein thrombosis of the lower extremities bilaterally. 2 . Significant venous insufficiency of the greater saphenous vein bilaterally. 3 . Venous insufficiency of the left sapheno femoral junction. Tonya rFanco REGIONAL HR MANAGER Cardiology:Could be attributed to deconditioning vs. asthma [...] ..... Take one tablet daily Tonya Franco REGIONAL HR MANAGER Cardiology Cha Mcgrath MD Date Name Stress [...]
--- OUTSIDE RECORDS SUMMARY | 2025-02-14 07:22 | XMS_ITS ---
Author Organization [facility] Address [address] [address] Care Team Providers Care Stereotype Caster Name Role Phone Cordelia Cardoso Primary Care Provider [phone] Allergies Allergen (clinical drug ingredient) Drug/Non Drug [...] review and pick correct strength-formula tion from [employer] options. If intended option is not shown, discontinue and re-order from Quick Search* 06/10/2024 Active Fluticasone-Salmeterol 500 MCG-50 MCG 1 INH INHALED 2 TIMES A DAY for 30 DAY(S) *Please review and pick correct strength-formula tion from [employer] options. If intended option is not shown, [...] review and pick correct strength-formula tion from [employer] options. If intended option is not shown, [...] review and pick correct strength-formula tion from [employer] options. If intended option is not shown, discontinue and re-order from Quick Search* Active Gamunex-C 10% DIRECTED INTRAVENOUSLY EVERY 4 WEEKS *Please review and pick correct strength-formula tion from [employer] options. If intended option is not shown, [...] review and pick correct strength-formula tion from [employer] options. If intended option is not shown, discontinue and re-order from [employer] Search* Active Mounjaro 12.5 MG/0.5ML as directed [...] 96% Encounters Encounter Location Date Provider Diagnosis [facility] - Cordelia Cardoso [address] [place] [address] 11/25/2024 Cordelia Cardoso Type 2 diabetes kristian [...] the possibility of port placement with a dragline operator helper, evaluating the risks and benefits.Explore the option [...] procedures, referring and communicating with other health medical care manager, documenting clinical information in the electronic or [...] the possibility of port placement with a dragline operator helper, evaluating the risks and benefits.Explore the option [...] procedures, referring and communicating with other health medical care manager, documenting clinical information in the electronic or [...] Reason: labwork Provider Name:Cordelia Cardoso, 10:00:00 AM, [address] , [place], [address], Progress Notes * Kvng EMOB: [birth year] (59 yo F)Acc No.[id number]:11/25/2024 Progress Notes Patient: Karen PARISI Provider: Anna Cardoso MD :1965 A ge:59 Y S ex:Female Date:11/25/2024 Address:[address] [place], [place] [id number] Subjective: * Chief Complaints: * 1 . [...] *Please review and pick correct strength-formulation from [employer] options. If intended option is not shown, discontinue and re-order from Quick Search*, Taking Gamunex-C 10% SOLUTION DIRECTED INTRAVENOUSLY EVERY 4 WEEKS , Notes to Pharmacist: *Please review and pick correct strength-formulation from [employer] options. If intended option is not shown, [...] *Please review and pick correct strength-formulation from [employer] options. If intended option is not shown, [...] *Please review and pick correct strength-formulation from [employer] options. If intended option is not shown, discontinue and re-order from Quick Search*, Taking Fluticasone-Salmeterol 500 MCG-50 MCG POWDER 1 INH INHALED 2 TIMES A DAY , Notes to Pharmacist: *Please review and pick correct strength-formulation from [employer] options. If intended option is not shown, discontinue and re-order from Quick Search*, Taking Arnuity Ellipta FUROATE 50 MCG POWDER DIRECTED INHALED EVERY 24 HOURS , Notes to Pharmacist: *Please review and pick correct [facility]. If intended option is not shown, [...] the possibility of port placement with a dragline operator helper, evaluating the risks and benefits.Explore the option [...] procedures, referring and communicating with other health medical care manager, documenting clinical information in the electronic or other health record, independently interpreting results and communicating results to the patient/family/caregiver and care coordinating patient plan. Patient alert and oriented x 4 and aware of discussion noted above and in agreeance to plan in management of type 2 DM/well controlled, hyperlipidemia, hypothyroidism, weight management/obesity. * Procedure Codes: 9 9401 P/M GENERAL EXPEDITOR, INDIV 15 MIN * Follow Up: 4 Months (Reason: labwork) * Billing Information: * Visit Code: 27474 Office Visit, Est Pt., Level 4. * Procedure Codes: 72738 P/M GENERAL EXPEDITOR, INDIV 15 MIN. * T BASIC EDUCATION TEACHER Sign off status: Completed true * Provider: Anna Cardoso MD Date: 0 11/25/2024 Generated for Latisha kerns/Julienne/Rick on: 0 02/14/2025 07:21 AM CDT History and Physical Notes * [...]
--- OUTSIDE RECORDS SUMMARY | 2025-02-14 07:22 | XMS_ITS ---
Author Organization [facility] Address [address] [place] [address] Care Team Providers Care Metal Fabricator Apprentice Name Role Cordelia Roberts Primary Care Provider Encounters Encounter Location Date Provider Diagnosis [facility] [address] [place] [address] 11/24/2024 Cordelia Cardoso Plan Of Treatment Next Appt Details Provider Name:Cordelia Cardoso, 10:00:00 AM, [address] [place], [address], Progress Notes * Ena EMhDOB: [birth year] (59 yo F)Acc No.[id number]:11/24/2024 Patient: Karen PARISI :1965 A ge:59 Y S ex:Female Address:[address] [place] [address], [place] [address] * true * Date: Generated for Latisha kerns/Julienne/eTransmitting on: 0 02/14/2025 07:21 AM CDT
--- OUTSIDE RECORDS SUMMARY | 2025-02-14 07:22 | XMS_ITS ---
Author Organization [facility] [employer] [facility] Address [address] [place] [address] Care Team Providers Care Rope Making Machine Operator Name Role Cordelia Roberts Primary Care Provider Medications Medication SIG (Take, Route, Fr equency, Duration) Notes Start Date End Date Status dexAMETHasone 1 MG 1 tablet at 10pm Ora lly once for 1 days 11/27/2024 Active Encounters Encounter Location Date Provider Diagnosis [facility] - Cordelia Cardoso [address] [place] [address] 11/27/2024 Cordelia Cardoso Plan Of Treatment Medication Medication Name Sig Start Date Stop Date Notes dexAMETHasone 1 MG 1 tablet at 10pm Orally once for 1 days 11/27/2024 Next Appt Details Provider Name:Cordeliajudie Cardoso, 10:00:00 AM, [address], [place], [address], Progress Notes * Ena EMhDOB: [birth year] (59 yo F)Acc No.[id number]:11/27/2024 Patient: Eric RichardsSTANISLAWJOSH Karen :1965 A ge:59 Y S ex:Female Address:[address] [facility] [place] [address] * Refills Start dexAMETHasone Tablet, 1 MG, Orally, 1, 1 tablet at 10pm, once, 1 days, Refills=1 * true * Date: Generated for Printi ng/Faxing/eTransmitting on: 0 02/14/2025 07:22 AM CDT
--- OUTSIDE RECORDS SUMMARY | 2025-02-14 07:23 | XMS_ITS | Clinical Summary ---
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
--- OUTSIDE RECORDS SUMMARY | 2025-02-14 07:23 | XMS_ITS | Data Portability ---
Author Organization [place] [facility], Main Office Address [address] [place] [address] Care Team Providers Care Industrial Electrical Engineer Name Role Phone CARMELINA SOLIS Primary Care Provider CARMELINA SOLIS Referring Provider TANIA MOODY Production Proofreader RADHA NICHOLS Plastic/Reconstructive Surgeon CHA YANG Javascript Developer JENAE ALFONSO Call Center Dispatcher Assessment Encounter Date Assessment Date Assessment LastModified [...] 06/13/2024: Dr Cardoso GFR 56 WBC 4.4 Not available 07/15/2024 13:56:22 09/16/2024 09/16/2024 05/12/2023: GFR 57, gluc 116 A1C 4.9 09/12/2023: CMP/Lipids/TS H/FT4: WNL A1C 4.8 WBC 4.0L 01/15/2024: Labs Stable 05/20/2024: A1C 5.0 06/13/2024: Dr Cardoso GFR 56 WBC 4.4 09/04/2024: Stable Not available 09/16/2024 19:16:28 02/10/2025 02/10/2025 05/12/2023: GFR 57, gluc 116 A1C 4.9 09/12/2023: CMP/Lipids/TS H/FT4: WNL A1C 4.8 WBC 4.0L 01/15/2024: Labs Stable 05/20/2024: A1C 5.0 06/13/2024: Dr Cardoso GFR 56 WBC 4.4 09/04/2024: Stable 11/02/2024: Dr Cardoso 02/04/2025: Stable Not available 02/10/2025 09:43:00 Plan of Treatment Reminders Order Date Submit Date Provider Last Modified By Organization Details Last Modified Time Details Appointments Follo w Up 15 2024 09:15A Anna dean MD Not available Not available Not available Lab lipid panel , serum [address], [facility], [place], [address], 02/10/2025 14:48:29 CMP, serum or plasm a [address], [address], [place], [address], 02/10/2025 14:48:29 CBC w/ auto diff [address], [address], [place], [address], 02/10/2025 14:48:29 TSH + free T4, serum [address], [address], [place], [address], 02/10/2025 14:48:29 vitam in D, 25-hy droxy , total , serum [address], [address], [place], [address], 02/10/2025 14:48:30 HbA1c (hemo globi n A1c), blood [address], [address], [place], [address], 02/10/2025 14:48:28 micro album in, urine [address], [address], [place], [address], 02/10/2025 14:48:29 lipid panel , serum 2023 024 [facility], [address], [place], [address], 11/03/2024 08:12:27 CMP, serum or plasm a 2023 024 [facility], [address], [place], [address], 11/03/2024 08:12:27 CBC w/ auto diff 2023 024 [facility], [address], [place], [address], 11/03/2024 08:12:27 TSH + free T4, serum 2023 024 [facility], [address], [place], [address], 11/03/2024 08:12:27 vitam in D, 25-hy droxy , total , serum [address], [facility], [place], [address], 09/16/2024 10:53:44 HbA1c (hemo globi n A1c), blood 2023 024 [facility], [facility], [place], [address], 11/03/2024 08:12:27 micro album in, urine [address], [facility], [place], [address], 09/16/2024 10:53:43 lipid panel , serum 2023 024 [facility], [facility], [place], [address], 09/04/2024 12:15:42 CMP, serum or plasm a 2023 024 [facility], [facility], [place], [address], 09/04/2024 12:15:42 CBC w/ auto diff 2023 024 [facility], [address] [place] [address] Rd, [address], [place], [address], 09/04/2024 12:15:43 TSH + free T4, serum 2023 024 [facility], [facility], [place], [address], 09/04/2024 12:15:43 vitam in D, 25-hy droxy , total , serum [address], [facility], [place], [address], 01/14/2025 11:12:18 HbA1c (hemo globi n A1c), blood [address], [address], [place], [address], 01/14/2025 11:12:18 micro album in, urine [address], [address], [place], [address], 01/14/2025 11:12:18 lipid panel , serum 2023 024 [facility], [address], [place], [address], 06/13/2024 12:09:39 CMP, serum or plasm a 2023 024 [facility], [address], [place], [address], 06/13/2024 12:09:39 CBC w/ auto diff 2023 024 [facility], [address], [place], [address], 06/03/2024 09:40:11 TSH + free T4, serum 2023 024 [facility], [address], [place], [address], 06/13/2024 12:09:39 vitam in D, 25-hy droxy , total , serum 2023 024 [facility], [address], [place], [address], 06/13/2024 12:09:39 HbA1c (hemo globi n A1c), blood 2023 024 [facility], [address], [place], [address], 06/13/2024 12:09:39 micro album in, urine [address], [address], [place], [address], 11/25/2024 14:09:53 vitam in D, 25-hy droxy , total , serum [address], [address], [place], [address], 07/22/2024 09:49:14 HbA1c (hemo globi n A1c), blood [address], [address], [place], [address], 07/22/2024 09:49:13 micro album in, urine [address], [address], [place], [address], 07/22/2024 09:49:14 lipid panel , serum [address], [address], [place], [address], 07/22/2024 09:49:14 CMP, serum or plasm a [address], [address], [place], [address], 07/22/2024 09:49:14 CBC w/ auto diff [address], [address], [place], [address], 07/22/2024 09:49:14 TSH + free T4, serum [address], [address], [place], [address], 07/22/2024 09:49:14 Referral ortho pedic surge on refer ral - Pleas e call patie nt to sched ule an appoi ntmen t. Thank you. 2024 025 OSEAS Vega MD, [address], [address], [place], [address], 02/10/2025 14:05:20 podia trist refer ral - Pleas e call patie nt to sched ule an appoi ntmen t. Thank you. 2024 025 MICHAEL Adair DPM, [address] [facility], [address], [place], [address], 02/10/2025 16:29:19 diabe tic ophthanh almol ogy refer ral - Pleas e call patie nt to sched ule an appoi ntmen t. Thank you. 2024 025 OSEAS Casey, [address], [place], [address], 02/10/2025 13:50:31 endoc rinol ogy refer ral 2024 025 [place], [address], [place], [address], 02/10/2025 10:02:[address] refer ral 2023 024 [email or web address] Tania Moody MD, [address], [place], [address], 09/16/2024 17:52:12 plast ic surge on refer ral 2023 024 Radha Nichols MD, [address] [place], [address], 09/16/2024 17:52:[address] refer ral 2023 024 [email or web address] [place], [address] [address], [facility] [address], [address], 09/16/2024 17:53:49 podia trist refer ral 2023 024 [email or web address] Jhon Adair DPM, [address] [facility], [address], [place], [address], 09/16/2024 17:54:38 diabe tic ophth almol ogy refer ral 2023 024 [email or web address] Andra Baum MD, [address] [facility], [address], [place], [address], 09/16/2024 17:54:39 endoc rinol ogy refer ral 2023 024 [email or web address] [place], [address] [address] , [place], [address], 09/16/2024 17:54:[address] refer ral 2023 024 [email or web address] Tania Moody MD, [address], [place], [address], 01/13/2025 08:33:00 plast ic surge on refer ral 2023 024 [email or web address] Not available 01/13/2025 08:33:[address] refer ral 2023 024 [email or web address] [place], [address] [address] , [address], [place], [address], 08/14/2024 08:12:26 ENT surge ry refer ral 2023 024 [email or web address] Jenae Alfonso, [address] [facility], [place], [address], 01/13/2025 08:33:02 podia trist refer ral 2023 024 [email or web address] Jhon Adair DPM, [address] [facility], [address], [place], [address], 01/13/2025 08:32:57 diabe tic ophth almol ogy refer ral 2023 024 [email or web address] Andra Baum MD, [address] [facility] [address], [place], [address], 01/13/2025 08:32:58 endoc rinol ogy refer ral 2023 024 [email or web address] [place], [address] [address], [place], [address], 01/13/2025 08:33:[address] refer ral 2023 024 [email or web address] Tania Moody MD, [address], [place], [address], 12/23/2024 18:01:43 podia trist refer ral 2023 024 Jhon Adair DPM, [address] [facility], [facility] [address], [place], [address], 11/25/2024 14:10:12 diabe tic ophth almol ogy refer ral 2023 024 Andra Baum MD, [address] [facility] [address], [place], [address], 11/25/2024 14:10:13 ENT surge ry refer ral 2023 024 MICHAEL Alfonso, [address] [facility], [place], [address], 07/09/2024 18:12:26 endoc rinol ogy refer ral 2023 024 [email or web address] [place], [address] [address], [place], [address], 12/23/2024 18:01:[address] refer ral 2023 024 roderick Moody MD, [address], [place], [address], 02/19/2024 10:43:43 plast ic surge on refer ral 2023 024 [email or web address] [facility], [address], [place], [address], 07/22/2024 09:50:18 podia trist refer ral 2023 024 Jhon Adair DPM, [address] [facility], [address], [place], [address], 08/19/2024 09:12:09 diabe tic ophth almol ogy refer ral 2023 024 Andra Baum MD, [address] [facility], [address], [place], [address], 01/20/2025 08:17:48 Procedures colon oscop y scree shana (PROC ) 2024 025 [email or web address] Galo Hernandez MD, [address], [facility] [address], [place], [address], 02/10/2025 09:48:43 colon oscop y scree shana (PROC ) 2023 024 [email or web address] Galo Hernandez MD, [address], [address], [place], [address], 09/16/2024 17:50:57 colon oscop y scree shana (PROC ) 2023 024 [email or web address] Galo Hernandez MD, [address], [address], [place], [address], 01/13/2025 09:04:07 colon oscop y scree shana (PROC ) 2023 024 [email or web address] Galo Hernandez MD, [address], [address], [place], [address], 11/25/2024 14:11:39 Surgeries None recor ded. Imaging DEXA, axial skele ton - Pleas e call patie nt to sched ule. 2024 025 [facility], [address] [facility], [place], [address], 02/10/2025 13:45:19 CT, chest , w/o contr ast - Pleas e call patie nt to sched ule. 2024 025 [facility], [address] [facility], [place], [address], 02/10/2025 13:50:31 DEXA, axial skele ton [address], [facility] [facility], [place], [address], 09/17/2024 16:51:27 XR, ribs, unila teral , w/ PA chest 2023 024 MICHAEL Not available 07/15/2024 10:22:14 MAMMO , scree shana, digit al, bilat eral [address], [address] [facility], [place], [address], 11/25/2024 18:05:45 US, breas t, unila teral [email or web address] [place] [address] ([employer]), [address] [place], [address], 08/14/2024 08:12:50 MAMMO , diagn ostic , bilat eral [address], [address] [place] [address], [address], 11/25/2024 18:05:38 DEXA, axial skele ton [address], [address], [place], [address], 09/17/2024 16:49:20 MAMMO , scree shana, digit al, bilat eral [address], [address], [place], [address], 11/25/2024 18:05:26 DEXA, axial skele ton [address], [address], [place], [address], 09/17/2024 16:51:23 MAMMO , scree shana, digit al, bilat eral [address] ([employer]), [address] [place] [address], [address], 01/20/2025 13:20:26 Medication Orders None recor ded. Patient TargetsNo targets recorded. Patient InstructionsNo instructions recorded. Reason for Referral Reel And Rewinder Operator Referral for Type 2 diabetes mellitus without complication Referring Physician: Carmelina Solis Internal Medicine, Encounter Date: 01/22/2024 Diabetic Ophthalmology Refer ral for Type 2 diabetes mellitus without complication Referring Physician: Carmelina Solis Internal Medicine, Encounter Date: 01/22/2024 Referring Physician: Carmelina Solis Internal Medicine, Encounter Date: 01/22/2024 Plastic Surgeon Referral for Excess panniculus of abdomen Referring Physician: Carmelina Solis Internal Medicine, Encounter Date: 01/22/2024 Reel And Rewinder Operator Referral for Type 2 diabetes mellitus without complication Referring Physician: Carmelina Solis Internal Medicine, Encounter Date: 05/29/2024 Diabetic Ophthalmology Refer ral for Type 2 diabetes mellitus without complication Referring Physician: Carmelina Solis Internal Medicine, Encounter Date: 05/29/2024 Referring Physician: Carmelina Solis Internal Medicine, Encounter Date: 05/29/2024 Endocrinology Referral for H yperprolactinemia Referring Physician: Hanane Quick Medicine, Encounter Date: 05/29/2024 ENT Surgery Referral for Chr onic sinusitis Referring Physician: Carmelina Solis Internal Medicine, Encounter Date: 05/29/2024 Reel And Rewinder Operator Referral for Type 2 diabetes mellitus without complication Referring Physician: Carmelina Solis Internal Medicine, Encounter Date: 07/15/2024 Diabetic Ophthalmology Refer ral for Type 2 diabetes mellitus without complication Referring Physician: Hanane Qucik Medicine, Encounter Date: 07/15/2024 Referring Physician: Hanane Quick Medicine, Encounter Date: 07/15/2024 Endocrinology Referral for H yperprolactinemia Referring Physician: Hanane Quick Medicine, Encounter Date: 07/15/2024 ENT Surgery Referral for Chr onic sinusitis Referring Physician: Hanane Quick Medicine, Encounter Date: 07/15/2024 Plastic Surgeon Referral for Excess panniculus of abdomen Referring Physician: Carmelina Solis Internal Medicine, Encounter Date: 07/15/2024 Javascript Developer Referral for Es sential hypertension Referring Physician: Hanane Quick Medicine, Encounter Date: 07/15/2024 Reel And Rewinder Operator Referral for Type 2 diabetes mellitus without complication Referring Physician: Hanane Quick Medicine, Encounter Date: 09/16/2024 Diabetic Ophthalmology Refer ral for Type 2 diabetes mellitus without complication Referring Physician: Hanane Quick Medicine, Encounter Date: 09/16/2024 Referring Physician: Carmelina Solis Internal Medicine, Encounter Date: 09/16/2024 Endocrinology Referral for H yperprolactinemia Referring Physician: Carmelina Solis Internal Medicine, Encounter Date: 09/16/2024 Plastic Surgeon Referral for Excess panniculus of abdomen Referring Physician: Carmelina Solis Internal Medicine, Encounter Date: 09/16/2024 Javascript Developer Referral for Es sential hypertension Referring Physician: Carmelina Solis Internal Medicine, Encounter Date: 09/16/2024 Reel And Rewinder Operator Referral for Type 2 diabetes mellitus without complication Please call patient to schedule an appointment. Thank you. Referring Physician: Carmelina Solis Internal Medicine, Encounter Date: 02/10/2025 Diabetic Ophthalmology Refer ral for Type 2 diabetes mellitus without complication Please call patient to schedule an appointment. Thank you. Referring Physician: Carmelina Soils Internal Medicine, Encounter Date: 02/10/2025 Endocrinology Referral for H yperprolactinemia Referring Physician: Carmelina Solis Internal Medicine, Encounter Date: 02/10/2025 Orthopedic Surgeon Referral for Swelling of clavicular region Please call patient to schedule an appointment. Thank you. Referring Physician: Carmelina Solis Internal Medicine, Encounter Date: 02/10/2025 Results Created Date Observation Date Name Description Value Unit Range Abnormal Flag Note LastModifiedBy Organization Detail LastModifiedTime 02/26/20 24 02/26/2024 imagi ng/di agnos tic resul t No observ ation record ed. [facility] [address], [place], [address], 02/26/2024 18:18:28 07/15/20 24 ribs right w/Pa chest , min 3vw [facility] [address] [facility] n [facility], [place] [address] Patien t Name: BEVERLY CONKLIN CH Access ion #: [id number] Sex: F : 1964 9 Dictat ed By: Kris yang Attend ing Physic norm: CASANDRA DOYLEFREIDASAWYER Orderi ng Physic norm: KELLEE VERONICAAshleighDALILA A Exam Date: 2023 09:07 AM Exam Name: [...] at 2023 07:17: 10 AM Page [address] (Imaging) [address] [place], [address], 07/15/2024 15:00:00 07/15/20 24 07/15/2024 XR, ribs, unila teral , w/ PA chest No observ ation record ed. [address] [place], [address], 07/15/2024 15:00:01 07/29/20 24 07/29/2024 MAMMO , scree shana, digit al, bilat eral No observ ation record ed. [email or web address], [place], [address], 11/25/2024 18:05:12 12/19/19 25 12/17/2024 imagi ng/rani cliff tic resul t No observ ation record ed. [facility] [address], [place], [address], 12/19/2024 09:47:11 Result Notes None recorded. Problems Name Problem SNOMED Code Status Onset Date Resolution Date Notes Provider Name and Address Organization Details Recorded Time Pain in lower limb 63199464 Active Not Available [facility] 3 02:48:10 Bilateral osteoarthr itis of knees 2976809892371 07 Active 2021 Not Available [facility] 3 02:48:10 Bilateral trochanter ic bursitis 9046518479886 9109 Active 2021 Not Available [facility] 3 02:48:10 Disorder of lower limb 678935193 Active Not Available [facility] 3 02:48:10 Disorder of shoulder 157548716 Active Not Available [facility] 3 02:48:10 Plantar fasciitis of right foot 2665705066479 9101 Active 2017 Not Available [facility] 3 02:48:10 Pain in right sacroiliac joint 7038237005142 9107 Active 2019 Not Available [facility] 3 02:48:10 Folliculit is 33467934 Active Not Available [facility] 3 02:48:10 Pain of right shoulder joint 6063977877368 9100 Active 2021 Not Available [facility] 3 02:48:10 Asthma 736944509 Active Not Available [facility] 3 02:48:10 Localized, primary osteoarthr itis of the shoulder region 343988071 Active 2021 Not Available [facility] 3 02:48:10 Equinus contractur e of the ankle 014660248 Active 2017 Not Available [facility] 3 02:48:10 Sacroiliac joint pain 621671717 Active 2021 Not Available [facility] 3 02:48:10 Partial thickness rotator cuff tear 978837799 Active 2018 Not Available [facility] 3 02:48:11 Partial thickness rotator cuff tear 040985364 Active 2018 Not Available [facility] 3 02:48:11 Morbid obesity 153149423 Active 2016 Not Available [facility] 3 02:48:11 Osteoarthr itis of knee 281996917 Active 2018 Not Available [facility] 3 02:48:11 Ankle pain 931048451 Active Not Available [facility] 3 02:48:11 Edema 720189670 Active Not Available [facility] 3 02:48:11 Shoulder joint pain 718098373 Active Not Available [facility] 3 02:48:11 Eruption 830112343 Active Not Available [facility] 3 02:48:11 Low back pain 054599297 Active Not Available [facility] 3 02:48:11 Unable to cut own toenails 937734789 Active 2020 Not Available [facility] 3 02:48:11 Current tear of medial cartilage AND/OR meniscus of knee Active Not Available [facility] 3 02:48:12 Current tear of lateral cartilage AND/OR meniscus of knee Active Not Available [facility] 3 02:48:12 Trochanter ic bursitis of left hip 1039651969979 03 Active 2020 Not Available [facility] 3 02:48:12 Trochanter ic bursitis of right hip 5568458751932 00 Active 2019 Not Available [facility] 3 02:48:12 Bronchitis 79289113 Active 2017 Not Available [facility] 3 02:48:12 Vitamin D deficiency 71146123 Active 2017 Not Available [facility] 3 02:48:12 Inflammato ry disorder of extremity 465888708 Active Not Available [facility] 3 02:48:12 Sinusitis 24966655 Active Not Available [facility] 3 02:48:12 Dyslipidem ia 353401641 Active 2021 Not Available [facility] 3 02:48:12 Osteoarthr itis 044962000 Active Not Available [facility] 3 02:48:13 Staphyloco ccal infection of skin 002101724 Active 2021 Not Available [facility] 3 02:48:13 Onychomyco sis of toenails 161449474 Active 2019 Not Available [facility] 3 02:48:13 Dizziness 299891183 Active 2017 Not Available [facility] 3 02:48:13 Hypothyroi dism 67696752 Active 2021 Not Available [facility] 3 02:48:13 Furuncle 054610743 Active Not Available [facility] 3 02:48:13 Diabetic peripheral neuropathy 189856263 Active 2020 Not Available [facility] 3 02:48:13 Well controlled type 2 diabetes mellitus 640681900 Active 2021 Not Available [facility] 3 02:48:13 Cramp in lower limb 004676195 Active Not Available [facility] 3 02:48:13 Pain of right knee joint 3570731589584 00 Active 2021 Not Available [facility] 3 02:48:14 Cough 02340935 Active 2021 Not Available [facility] 3 02:48:14 Tibialis tendinitis 21321020 Active Not Available [facility] 3 02:48:14 Essential hypertensi on 57917752 Active Not Available [facility] 3 02:48:14 Urinary tract infectious disease 88746350 Active 2021 Not Available [facility] 3 02:48:14 Paronychia 85137927 Active Not Available [facility] 3 02:48:14 Candidiasi s of vagina 14136872 Active 2021 Not Available [facility] 3 02:48:14 Palpitatio ns 60799250 Active Not Available [facility] 3 02:48:15 Dystrophia unguium 58359690 Active 2020 Not Available [facility] 3 02:48:15 Hyperlipid emia 52603466 Active 2022 Carmelina fontenot MD [address], [address], [place], [address] , [facility] 3 19:10:33 Type 2 diabetes mellitus without complicati on 054538960 Active 2022 Carmelina fontenot MD [address], [address], [place], [address] , [facility] 3 19:10:51 Rheumatoid arthritis 10840399 Active 2022 Carmelina fontenot MD [address], [address], [place], [address] , [facility] 3 19:11:11 Urinary incontinen ce 202558590 Active 2022 Carmelina fontenot MD [address], [address], [place], [address] , [facility] 3 19:11:43 Pneumonia 805983664 Active 2022 Carmelina fontenot MD [address], [address], [place], [address] , [facility] 3 19:12:13 Hyperprola ctinemia 975943904 Active 2022 Carmelina fontenot MD [address], [address], [place], [address] , [facility] 3 19:12:19 Hypoprotei nemia 7385310 Active 2022 Carmelina fontenot MD [address], [place], [address] , [facility] 3 19:12:39 Immunodefi ciency disorder 956359453 Active 2022 Carmelina fontenot MD [address], [place], [address] , [facility] 3 19:13:09 Gastroesop hageal reflux disease without esophagiti s 461862075 Active 2022 Carmelina fnotenot MD [address], [place], [address] , [facility] 3 19:13:20 Generalize d anxiety disorder 53529373 Active 2022 Carmelina fontenot MD [address], [place], [address] , [facility] 3 19:13:28 Vertigo 829153469 Active 2022 Carmelina fontenot MD [address], [place], [address] , [facility] 3 19:16:12 Dry eyes 301902581 Active 2022 Carmelina fontenot MD [address], [place], [address] , [facility] 3 19:18:40 Skin lesion 68424722 Active 2022 Carmelina fonteont MD [address], [place], [address] , [facility] 3 12:06:10 Migraine 52005581 Active 2022 Carmelina fontenot MD [address], [place], [address] , [facility] 3 12:07:07 Chronic sinusitis 80145450 Active 2022 Carmelina fontenot MD [address], [place], [address] , [facility] 3 12:33:20 Pain of left hip joint 1259070818174 00 Active 2022 KIMBERLEE SantizoA null, [place] [facility] 3 09:19:14 Vaginitis 35489425 Active 2022 Jennifer Carrillo null, [facility] 3 12:29:22 Pain of bilateral hands 7557832864079 9109 Active 2022 KIMBERLEE SantizoA null, [place] [facility] 3 11:58:29 Spinal stenosis of lumbar region 40806889 Active 2022 Karlene Bobo null, [facility] 3 12:21:59 Bilateral carpal tunnel syndrome 6425726367299 9101 Active 2022 Rip Vega MD [address], [place], [address] , [facility] 3 12:28:28 Excess panniculus of abdomen 3008514494959 Active 2022 Carmelina fontenot MD [address], [place], [address] , [facility] 3 12:20:48 Acute sinusitis 41924495 Active 2022 Jennifer Carrillo null, [facility] 3 13:02:51 Swelling of clavicular region 5086181279 Active 2022 Carmelina fontenot MD [address], [place], [address] , [facility] 3 09:46:23 Solitary nodule of lung 158888402 Active 2022 BRANDI Barrios null, [facility] 3 12:34:04 Candidiasi s of mouth 21791003 Active 2023 BRANDI Barrios null, [facility] 4 16:17:57 Uncontroll ed type 2 diabetes mellitus 507055528 Active 2023 Kirti Shannon MA null, [facility] 4 13:00:58 Pain of right breast 7357620766 Active 2023 Carmelina fontenot MD [address], [place], [address] , [facility] 4 09:34:50 Right sided chest pain 676404221 Active 2023 Carmelina fontenot MD [address], [place], [address] , [facility] 4 09:36:22 Notes:allergies, back/neck p roblems, swelling in arms or legs, wears glasses/contacts Problem Notes None recorded. Procedures Surgical History Date Name Laterality Status Provider Name and Address Organization Details Recorded Time 03/30/20 23 Ortho - Cortisone Injection completed Rip Vega MD [address], [place], [address], [facility] 03/30/2023 09:49:12 08/12/20 20 Most Recent Mammogram completed Not Available [facility] 12/28/2022 02:42:50 10/17/20 19 Hysterectomy completed Not Available [facility] 023 02:42:54 10/17/20 19 [employer] Surgery completed Not Available [facility] 12/29/19 02:42:54 09/19/20 19 Dilation and curettage completed Not Available [facility] 12/28/2022 02:42:54 09/19/20 19 SH[employer]TER Surgery completed Not Available [facility] 12/29/19 02:42:54 03/06/20 19 Knee arthroscopy/surge ry completed Not Available [facility] 12/28/2022 02:42:54 04/05/20 18 Date of Last Pap Smear completed Not Available [facility] 12/28/2022 02:42:49 04/20/20 17 hysteroscopy with biopsy completed Not Available [facility] 12/28/2022 02:42:54 04/20/20 17 SHAPER SETTER Surgery completed Not Available [facility] 12/29/19 02:42:54 04/20/20 17 Dilation and curettage completed Not Available [facility] 12/28/2022 02:42:54 Tonsillectomy completed Not Available [facility] 12/28/2022 02:42:54 other completed Not Available [facility] 10/2022 02:42:54 other completed Not Available [facility] 10/2022 02:42:54 Orthopedic Surgery completed Not Available [facility] 12/28/2022 02:42:54 other completed Not Available [facility] 10/2022 02:42:54 Gallbladder Surgery completed Not Available [facility] 12/28/2022 02:42:54 ENT Surgery completed Not Available [facility] 12/28/2022 02:42:54 other completed Not Available [facility] 10/2022 02:42:54 section completed Not Available [facility] 12/28/2022 02:42:54 SHAPER SETTER Surgery completed Not Available [facility] 12/28/2022 02:42:54 Bronchoscopy completed Not Available [facility] 12/28/2022 02:42:54 Imaging Results Imaging Date Name Status LastModified by Organiz ation Details LastModified Time 02/26/2024 imaging/diagno stic result active [facility] [address], [place], [address], 02/26/2024 18:18:28 07/15/2024 ribs right w/Pa chest, min 3vw completed [address] (Imaging) [address] [place], [address], 07/15/2024 15:00:00 07/15/2024 XR, ribs, unilateral, w/ PA chest completed [address] [facility] [address], [place], [address], 07/15/2024 15:00:01 07/29/2024 MAMMO, screening, digital, bilateral active [email or web address] [address], [place], [address], 11/25/2024 18:05:12 12/17/2024 imaging/diagno stic result active [place] [address], [place], [address], 12/19/2024 09:47:11 Procedure Notes None recorded. Medical Equipment None Reported. Allergies Allergen ID Allergen Name Allergen Category Reaction Reaction Severity Criticality Documentation Date Start Date Code Code System Note Provider Name and Address Organization Details Recorded Time 4336 Substance with sulfonami de structure and antibacte rial mechanism of action (substanc e) medicatio n hives Not available Not available 12/28/2022 35953 8003 SNOMED Not Available [facility] 3 02:55:44 4337 fentanyl medicatio n other Not available Not available 12/28/2022 4337 RxNorm respi rator y distr ess Not Available [facility] 3 02:55:44 4338 codeine medicatio n vomiting Not available Not available 12/28/2022 2670 RxNorm Not Available [facility] 3 02:55:45 4339 amoxicill in medicatio n hives Not available Not available 12/28/2022 723 RxNorm Not Available [facility] 3 02:55:45 4340 amitripty line medicatio n other Not available Not available 12/28/2022 704 RxNorm unabl e to urina te Not Available [facility] 3 02:55:45 27233 peach food rash moderate Not available 01/22/2024 61984 BRANDI Crespo, [place] [facility] 4 11:22:05 Medications Name Sig Start Date [...] 1 TABLET BY MOUTH EVERY DAY. ALEX Rowan SIDE EFFECTS. CALL IF BOTHERSO ME active [...] t Available azathiopr ine 50 mg tablet 02/10 completed Not Available Not Available Not Available estradiol [...] by injectio n route. 04/[address] [facility]: [phone] 4-20 Not Available Not Available Not Available dexametha sone 1 mg tablet TAKE 1 TABLET BY MOUTH 1 TIME AT 10 PM FOR 1 DAY active Not Available Not Available No t Available meclizine 25 mg tablet TK 1 [...] tablet TAKE 1 TABLET BY MOUTH DAILY 02/10 completed Not Available Not Available Not Available insulin syringe U-100 with needle 1 mL 30 gauge x 05/14 USE TO INJECT B12 WEEKLY active Not [...] administ ered by the provider active [facility]: [phone] 6 Not Available Not Available Not [...] e 205.5 mcg (0.15 %) nasal spray Rocky Comfort 2 sprays twice a day by intranas [...] by injectio n route. 04/[address] [facility] 90773-00 01-28 Not Available Not Available Not Available Fluzone 9995-6658 45 mcg (15 mcg x 3)/0.5 mL [...] Available Not Available Not Available Afluria Quad (PF) 60 mcg (15 mcg x 4)/0.5 [...] Updated DateTime 4 160.02 cm 37.4 kg/m2 68578.9 9 g 97.6 [degF] 72 /min 122 mm[Hg] 68 mm[Hg] BRANDI Barrios [facility] 4 11:27:41 Date Recorded Body height Body mass index (BMI) Body weight Body temperature Heart rate Oxygen saturation Oxygen saturation in Arterial blood by Pulse oximetry Systolic blood pressure Diastolic blood pressure Provider Name and Address Organization Details Last Updated DateTime 4 160.02 cm 37.2 kg/m2 31099.4 g 98.3 [degF] 89 /min 96 % 96 % 130 mm[Hg] 74 mm[Hg] Barbara Wheat MA [facility] [employer] [facility] 4 14:36:32 Date Recorded Body height Body mass index (BMI) Body weight Body temperature Heart rate Respiratory rate Oxygen saturation Oxygen saturation in Arterial blood by Pulse oximetry Pain severity - 0-10 verbal numeric rating [Score] - Reported Systolic blood pressure Diastolic blood pressure Provider Name and Address Organization Details Last Updated DateTime 4 160.02 cm 36.3 kg/m2 84120.4 4 g 98.2 [degF] 70 /min 16 /min 96 % 96 % 6 128 mm[Hg] 80 mm[Hg] Reinier Ziegler LPN [facility] [employer] [facility] 4 09:16:32 Date Recorded Body height Body mass index (BMI) Body weight Body temperature Heart rate Systolic blood pressure Diastolic blood pressure Provider Name and Address Organization Details Last Updated DateTime 4 160.02 cm 36.3 kg/m2 38098.4 4 g 97.9 [degF] 72 /min 138 mm[Hg] 76 mm[Hg] BRANDI Barrios ME [employer] 4 10:04:10 Date Recorded Body height Body mass index (BMI) Body weight Body temperature Heart rate Oxygen saturation Oxygen saturation in Arterial blood by Pulse oximetry Systolic blood pressure Diastolic blood pressure Provider Name and Address Organization Details Last Updated DateTime 5 160.02 cm 36.8 kg/m2 95395.2 1 g 98.7 [degF] 67 /min 98 % 98 % 130 mm[Hg] 72 mm[Hg] Barbara Wheat MA [facility] 5 09:35:57 Social History Question Answer Notes LastModified by Organization Details LastModified Time Tobacco Smoking Status Former Smoker quit age 32 Sherita hutchinson [facility] [employer] [facility] 04/27/2023 11:35:25 Do You Have An Advance Directive? No [id number] Information not available 12/28/2022 What Is Your Level Of Alcohol Consumption? None Information not available 04/27/2023 What Is Your Level Of Caffeine Consumption? Moderate [id number] Information not available 12/28/2022 How Much Tobacco Do You Chew? None [id number] Information not available 12/28/2022 In The 14 [...] Type Of Diet Are You Following? REGULAR [id number] Information not available 12/28/2022 Which Illicit Or Recreational Drugs Have You Used? None Information not available 04/27/2023 Do You Or Have You Ever Used E-cigarettes Or Vape? Never Used Electronic Cigarettes Information not available 04/27/2023 What Is The Highest Grade Or Level Of School You Have Completed Or The Highest Degree You Have Received? [id number] Information not available 04/27/2023 What Is Your Occupation? Unemployed Information not available 04/27/2023 Have There Been Any Changes To Your Family Or Social Situation? No Information not available 04/27/2023 What Is The Fluoride Status Of Your Home? Unknown Information not available 04/27/2023 When Did You Quit Smoking? 16+yearssincelastlizeth gonzalez 20 Years Information not available 04/27/2023 Are There Any Guns Present In Your Home? Yes Information not available 04/27/2023 Do You Use Insect Repellent Routinely? Yes Information not available 04/27/2023 Where Do You Live? SingleLevelHouse Information not available 04/27/2023 Do You Have A Medical Power Of Wagon Driller? No Information not available 04/27/2023 What Was The Date Of Your Most Recent Tobacco Screening? 02/10/2025 [email or web address] Information not available 02/10/2025 Have You Ever Been Counseled For Unhealthy Alcohol Use? No Information not available 04/27/2023 Do You Have Any Pets? Yes Information not available 04/27/2023 What Is Your Relationship Status? [id number] Information not available 12/28/2022 Do You Use [...] Smokeless Tobacco? Never Used Smokeless Tobacco [id number].[id number] [id number] Information not available 12/28/2022 How Much Tobacco Do You Smoke? No MIGRATION.[id number] [id number] Information not available 12/28/2022 What Types Of Sporting Activities Do You Participate In? None Information not available 04/27/2023 Do You Feel Stressed (tense, Restless, Nervous, Or Anxious, Or Unable To Sleep At Night)? [id number] Information not available 04/27/2023 Do You Use [...] Time What is your exercise level? None [id number] Information not available 12/28/2022 Mental Status None recorded. Family History Relationship Description Onset Age of this Age Resolved Age Notes LastModified by Organization Details LastModified Time Mother Chronic obstructive pulmonary disease [email or web address] Not available 09:39:16 Mother Carcinoma of lung [email or web address] Not available 09:39:16 Mother Essential hypertension [email or web address] Not available 09/16/2024 09:39:16 Mother Malignant neoplasm of brain [email or web address] Not available 09:39:16 Mother Family history of malignant neoplasm [email or web address] Not available 09:39:16 Mother Diabetes mellitus [id number] Not available 12/28/2022 02:42:58 Father Essential hypertension Not available 09/16/2024 09:39:16 Father Malignant tumor of colon [email or web address] Not available 09:39:16 Father Obesity [email or web address] Not avail able 09/16/2024 09:39:16 Father Family history of malignant neoplasm [email or web address] Not available 09:39:16 Father Diabetes mellitus Not available 2022 11:55:54 Unspecified Relation Malignant tumor of breast Aunt? Not available 09:39:16 Notes:cancer - mother & fath er Medical History Condition Response NERVE DISEASE N BLINDNESS N RHEUMATIC FEVER N KIDNEY STONES N BLADDER PROBLEMS N MRSA N OTHER # 1 Y POLIO N LUNG DISEASE/DISORDER Y RADIATION / CHEMOTHERAPY N COPD Y Other # 2 N BLOOD DISEASES N SURGERY N EAR OR HEARING PROBLEMS N MUMPS N BOWEL PROBLEMS N DEPRESSION (INCLUDING POST ) N STROKE/TIA N ULCERS N BENIGN PROSTATIC [...] HAVE YOU BEEN HOSPITALIZED OR SEEN IN [facility] IN THE PAST YEAR ? Y [...] mcg/0.3 mL dose 1 completed Not Available [facility] 12/28/2022 02:55:27 COVID-19, mRNA, LNP-S, PF, 100 mcg/0.5mL dose or 50 mcg/0.25mL dose 1 completed Not Available [facility] 12/28/2022 02:55:28 zoster recombinant 0 completed Not Available [facility] 12/28/2022 02:55:28 Influenza, split virus, quadrivalent, preservative 9 completed Not Available [facility] 12/28/2022 02:55:28 Influenza, split virus, quadrivalent, preservative 8 completed Not Available [facility] 12/28/2022 02:55:28 Influenza, split virus, quadrivalent, preservative 7 completed Not Available [facility] 12/28/2022 02:55:28 Influenza, split virus, quadrivalent, preservative 6 completed Not Available [facility] 12/28/2022 02:55:28 Influenza, split virus, trivalent, preservative 2 completed Not Available [facility] 12/28/2022 02:55:28 Influenza, split virus, quadrivalent, PF 0 completed Not Available [facility] 12/28/2022 02:55:28 pneumococcal polysaccharide PPV23 0 completed Not Available [facility] 12/28/2022 02:55:29 Pneumococcal conjugate PCV 13 7 completed Not Available [facility] 12/28/2022 02:55:29 Tdap 7 completed Not Available [facility] 12/28/2022 02:55:29 Past Encounters Encounter ID Performer Location Encounter Start Date Encounter Closed Date Diagnosis/Indication Diagnosis SNOMED-CT Code Diagnosis ICD10 Code Diagnosis Note [id number] [facility] [place] [address] [place] [address] 01/11/2021 00:00:00 01/11/2021 09:43:23 [id number] [facility] Internal [facility] [address] [facility] 15 [place] [address] 01/13/2021 00:00:00 01/26/2021 16:07:20 [id number] [facility] [address] [facility] 15 [place] [address] 01/22/2021 00:00:00 01/22/2021 17:48:35 [id number] [facility] [place] [address] [place] [address] [place] [address] 03/01/2021 00:00:00 03/04/2021 10:03:59 [id number] [facility] [place] [address] [place] [address] 03/18/2021 00:00:00 03/18/2021 15:22:39 [id number] [facility] [place] [address] [address] 04/12/2021 00:00:00 04/12/2021 14:22:13 [id number] [facility] [address] [place] [address] 04/27/2021 00:00:00 04/27/2021 14:10:47 [id number] [facility] [place] [address] [place] [address] 05/11/2021 00:00:00 05/11/2021 15:17:51 [id number] [facility] [place] [address] [place] [address] 05/18/2021 00:00:00 05/18/2021 09:53:45 [id number] [facility] [place] [address], [place] [address] 05/24/2021 00:00:00 07/12/2021 15:27:08 [id number] _ATHENA_M IGRATION_ DEFAULT_1 _1 , 06/18/2021 00:00:00 06/18/2021 11:44:49 [id number] [facility] [place] [address] [place] [address] 07/20/2021 00:00:00 07/20/2021 13:15:56 [id number] [facility] [address], [address] [place] [address] 07/23/2021 00:00:00 07/23/2021 11:04:50 [id number] [facility] [place] [address] [place] [address] 07/28/2021 00:00:00 07/28/2021 14:35:06 [id number] [facility] [place] [address] [place] [address] 08/18/2021 00:00:00 08/18/2021 17:40:43 [id number] [facility] [place] [address] [place] [address] 09/13/2021 00:00:00 09/13/2021 12:44:28 [id number] [facility] [place] [address] [place] [address] 11/17/2021 00:00:00 12/08/2021 15:35:58 [id number] [facility] [place] [address] [place] [address] 12/20/2021 00:00:00 12/20/2021 09:50:57 [id number] [facility] [place] [address] [place] [address] 02/14/2022 00:00:00 02/14/2022 15:45:35 [id number] [facility] [place] [address] [facility] [address] , [place] [address] 05/04/2022 00:00:00 05/04/2022 12:40:39 [id number] [facility] [place] [address] [facility] [address] , [place] [address] 06/15/2022 00:00:00 06/29/2022 16:34:46 [id number] [facility] [place] [address] [place] [address] 06/16/2022 00:00:00 06/16/2022 16:50:25 [id number] [facility] [place] [address] [place] [address] 08/02/2022 00:00:00 08/03/2022 17:09:15 [id number] [facility] [place] [address] [place] [address] y , [place] [address] 09/14/2022 00:00:00 09/14/2022 16:49:12 [id number] [facility] [place] [address] [place] [address] 10/20/2022 00:00:00 10/20/2022 14:00:29 [id number] [facility] [place] [address] [place] [address] 11/07/2022 00:00:00 11/07/2022 12:58:28 [id number] [facility] [place] [address] [place] [address] 11/15/2022 00:00:00 11/15/2022 16:14:02 [id number] [facility] [place] [address] [place] [address] 12/02/2022 00:00:00 12/02/2022 17:52:13 [id number] Carmelina fontenot MD [facility] [place] [address] [facility] [place] [address] 01/23/2023 11:30:02 01/23/2023 12:37:50 Screening - NAD 223934627 Z13.9 C-scope: 02/06/19: Dr Jazmin dimas next [...] understand ing of the above Essential hypertension 63502752 I10 On spironolac tone 50mg dailyOn losartan 100mg dailyOn diltiazem CD 120mg dailyget labs See HV Dr Yang Stress test 12/08/2021 : Neg Hyperlipidemia 32710784 E78.5 On pravastati n 20mg dailyNot on fenofibrat e 48mg daily Diet and exerciseGe t labs Does see Dr Cardoso 12/20/2021 , next 06/20/2022 Type 2 jossie betes mellitus without complication 469249333 E11.9 Type 2 diabetes mellitus without complicati onOn metformin Not on ozempic On mounjaro nowSeeing Dr Cardoso last 12/02/2022 Needs to see eye MD and has an apt with Dr Ting Maher seen Dr Adair podiatry, and was told had toe nail fungusIs to now get diabetic shoes Asthma 941174096 J45.90 9 03/23/2021 : CT chest On albuterolO n albuterol HHNOn advairOn ipratropiu mOn budesonide On loratidine On singulair Not on symbicort On spirivaOn flonaseOn O2 Has seen the pulmonary MD Dr Maxwell Rheumatoid arthritis [address] Nancy Ruiz in past Dr Jitendra Dietz leflunamid eOff hydroxychl oroquineOn CelebrexOn Simponi AriaOn prednisone On tramadol, given by Dr Ham Dry eyes 775106178 H04.1 23 On restasis, does well on this Hypothyroidism 15677939 E03.9 US thyroid 11/22/18US thyroid 08/04/2020 On synthroid 88mcgs dailyGet labs and see Dr Cardoso Urinary incontinence 165 301276 R32 On oxybutynin ER 10mg daily, Sienna Pena 03/01/2021 : Dr Mi, does well, notify if any symptoms Eruption 968271730 R21 On triamcinol one Does well Pneumonia 587607756 J18. 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 09/14/2020 : IgG defeciency : Resubmitte d for IVIG and f.u in 4 months Since then has had sinus infections and was to see ENT and also to get CPAP Juan Moody Gastroesop hageal reflux disease without esophagitis 568746763 K21.9 On omeprazole 07/01/2021 : EGD: Dr Hernandez states 02/14/2022 that she does not need this n Generalize d anxiety disorder 57928264 F41.1 Does wellNot suicidal or homicidal, declines any referralsO n buspirone 5mg po bid Vertigo 888791835 R42 See case from 04/07/2020 ; Vertigo from getting a CT scan, started on the meclizine0 04/08/2020: Dr Pride ENT: Is to get an audiogram and VNG, c/o tinnitius S/P CT Sinuses 04/04/2020 S/p VNG 04/30/2020 On diazepam, states that she takes this very rarelyOn meclizineT akes it as needed Does see ENT Dr Pride now as needed Vitamin D deficiency 347 70791 E55.9 Low back pain 547346102 M54.50 MRI L Spine 11/09/2022 Dr Vega 11/15/2022 Skin lesion 70162171 L98 .9 Has been on dapsone, given by Dr Lawson Migraine 45324750 G43.90 9 On sumatripta n 25mg as needed given by Dr Moody Chronic sinusitis 679105 00 J32.[address] Howard on her own, finsihed her doxy, get a referral again [id number] Rip Vega MD [facility] [place] [address] [place] [address] 03/30/2023 09:12:12 03/30/2023 11:23:24 Low back pain 978390800 M54.50 Partial th ickness rotator cuff tear 853197766 M75.102 Bilateral osteoarthritis of knees 7686067625 58968 M17.0 Morbid obesity 246110308 E66.01 Sacroiliac joint pain 20 9612771 M53.3 Bilateral trochanteric bursitis 0451359278 7778679 M70.61 M70.62 Pain of ri ght shoulder joint 8853003381 9532717 M25.511 Localized, primary osteoarthritis of the shoulder region 902511835 M19.011 Pain of le ft hip joint 1301361798 81806 M25.552 [id number] Rip Vega MD [facility] [place] [address] [place] [address] 04/27/2023 11:34:16 04/27/2023 13:37:22 Pain of bilateral hands 3136148519 7733924 M79.641 M79.642 Spinal todd nosis of lumbar region 78004938 M48.062 Bilateral carpal tunnel syndrome 1506005071 9985828 G56.03 [id number] Carmelina fontenot MD [facility] Internal Med [place] [address] [facility] [place] [address] 05/22/2023 11:23:22 05/22/2023 12:22:26 Screening - NAD 282587140 Z13.9 C-scope: 02/06/19: Dr Jazmin dimas next [...] understand ing of the above Essential hypertension 73508014 I10 On spironolac tone 50mg dailyOn losartan 100mg dailyOn diltiazem CD 120mg dailyget labs See [facility] Dr Yang Stress test 12/08/2021 : Neg Hyperlipidemia 23128003 E78.5 On pravastati n 20mg dailyNot on fenofibrat e 48mg daily Diet and exerciseGe t labs Does see Dr Cardoso 12/20/2021 , next 06/20/2022 Type 2 jossie betes mellitus without complication 629159779 E11.9 Type 2 diabetes mellitus without complicati onOn metforminN ot on ozempicOn mounjaro nowSeeing Dr Cardoso Needs to see eye MD and has an apt with Dr Ting Maher seen Dr Adair podiatry, and was told had toe nail fungusIs to now get diabetic shoes Asthma 383033840 J45.90 9 03/23/2021 : CT chest On albuterolO n albuterol HHNOn advairOn ipratropiu mOn budesonide On loratidine On singulairO n spiriva Not on symbicort On spirivaOn flonaseOn O2 Has seen the pulmonary MD Dr Maxwell Rheumatoid arthritis [address] Nancy Ruiz in past Dr Jitendra Dietz leflunamid eOff hydroxychl oroquine On CelebrexOn Simponi AriaOn prednisone On tramadol, given by Dr Ham Dry eyes 975506664 H04.1 23 On restasis, does well on this Hypothyroidism 84907080 E03.9 US thyroid 11/22/18US thyroid 08/04/2020 On unithyroid 88mcgs dailyGet labs and see Dr Cardoso Urinary incontinence 165 538109 R32 On oxybutynin ER 10mg daily, Sienna Pena 03/01/2021 : Dr Mi, does well, notify if any symptoms Eruption 380752526 R21 On triamcinol one Does well Pneumonia 537023101 J18. 9 S/p COVID 19 pneumonia, seen by Dr Sommers ID, [facility] ationsNow sees Dr Maxwell Hyperprolactinemia 65873 2004 E22.1 04/08/2020 : Dr Pride ENT: Is to get an audiogram and VNG, as per ENT diagnosed with prolactino ma, will d/w endocrine Dr Cardoso Osteoarthritis 342759976 M19.90 Dr Vega: L shoulder rotater cuff, knee pain, Bilateral hip painNo more apts Hypoproteinemia 9145526 E88.[address] Moody Immunodefi ciency disorder 851621449 D84.9 09/14/2020 : IgG defeciency : Resubmitte d for IVIG and f.u in 4 months Since then has had sinus infections and was to see ENT and also to get CPAP Juan Moody Gastroesop hageal reflux disease without esophagitis 101744464 K21.9 On omeprazole 07/01/2021 : EGD: Dr Hernandez states 02/14/2022 that she does not need this n Generalize d anxiety disorder 60994555 F41.1 Does wellNot suicidal or homicidal, declines any referralsO n buspirone 5mg po bid Vertigo 167036805 R42 See case from 04/07/2020 ; Vertigo from getting a CT scan, started on the meclizine0 04/08/2020: Dr Pride ENT: Is to get an audiogram and VNG, c/o tinnitius S/P CT Sinuses 04/04/2020 S/p VNG 04/30/2020 On diazepam, states that she takes this very rarelyOn meclizineT akes it as needed Does see ENT Dr Pride now as needed Vitamin D deficiency 347 15436 E55.9 Low back pain 839981548 M54.50 MRI L Spine 11/09/2022 Dr Vega 11/15/2022 Skin lesion 73581951 L98 .9 Has been on dapsone, given by Dr Lawson Migraine 54667711 G43.90 9 On sumatripta n 25mg as needed given by Dr Moody Chronic sinusitis 119491 [address] sinus: 04/20/[address] Howard on her own Excess mai niculus of abdomen 6309467654 101 E65 Has had pannus since she has lost a weight, has noted a rash likely erin none today, refer to plastic surgery [id number] Cordelia Cardoso MD [facility] [place] [address] [place] [address] 05/30/2023 09:30:02 05/30/2023 10:24:42 Well controlled type 2 diabetes mellitus 942329068 E11.9 A1C under 5% - patient has continued losing weight up to 98 pounds over past few years and another few pounds since last visit. Will uptitrate mounjaro to 10 mg once weekly and continue with metformin for insulin sensitizat ion. Hypothyroidism 51548889 E03.9 Continue synthroid but reduce to 75 [...] and minerals and reduce inflammati on. Dyslipidemia 311690996 E 78.5 Continue statin therapy as LDL in range. Staphyloco ccal infection of skin 479384229 B95.8 Refill mupirocin for staphyloco ccal skin [...] answered and refills necessary at visit today. [id number] Carmelina fontenot MD [facility] Internal [facility] [place] [address] [facility] [place] [address] 09/18/2023 11:26:19 09/18/2023 14:15:35 Screening - NAD 214288461 Z13.9 C-scope: 02/06/19: Dr Jazmin dimas next [...] historyUTD COVID 19 vaccineGet RSV vaccine Handicap atiyabrianda filled out 11/28/2019 RTC in 3 monthsDo labsER if worseShe did verbalize her understand ing of the above Essential hypertension 14769832 I10 On spironolac tone 50mg dailyOn losartan 100mg dailyOn diltiazem CD 120mg dailyget labs See [facility] Dr Yang last OV 04/04/2023 , f/u in 6 months Stress test 12/08/2021 : Neg Hyperlipidemia 57210286 E78.5 On pravastati n 20mg dailyNot on fenofibrat e 48mg daily Diet and exerciseGe t labs Does see Dr Cardoso 12/20/2021 , next 06/20/2022 Type 2 jossie betes mellitus without complication 384582236 E11.9 Type 2 diabetes mellitus without complicati onOn metformin ER 500mg bidNot on ozempicOn mounjaro nowSeeing Dr Cardoso Needs to see eye MD and has an apt with Dr Ting Maher seen Dr Adair podiatry, and was told had toe nail fungusIs to now get diabetic shoes Asthma 487266291 J45.90 9 03/23/2021 : CT chest On albuterolO n albuterol HHNOn advairOn ipratropiu mNot on budesonide On flonaseOn loratidine On singulairO n spiriva Not on symbicort On spirivaOn O2 Has seen the pulmonary MD Dr Maxwell Rheumatoid arthritis [address] Nancy Ruiz in past Dr Jitendra Dietz leflunamid eOff hydroxychl oroquine On CelebrexOn Simponi AriaOn prednisone On tramadol, given by Dr Ham Dry eyes 383700609 H04.1 23 On restasis, does well on this Hypothyroidism 83324729 E03.9 US thyroid 11/22/18US thyroid 08/04/2020 On unithyroid 88mcgs daily Urinary incontinence 165 362499 R32 On oxybutynin ER 10mg daily, Sienna Pena 03/01/2021 : Dr Mi, does well, notify if any symptoms Eruption 263126073 R21 On triamcinol one Does well Pneumonia 537802132 J18. 9 S/p COVID 19 pneumonia, seen by Dr Sommers ID, multiple hospitaliz ationsNow sees Dr Maxwell Hyperprolactinemia 39626 2004 E22.1 04/08/2020 : Dr Pride ENT: Is to get an audiogram and VNG, as per ENT diagnosed with prolactino ma, will d/w endocrine Seen by Dr Cardoso Osteoarthritis 305960995 M19.90 Dr Vega: L shoulder rotater cuff, knee pain, Bilateral hip painNo more apts Hypoproteinemia 8733778 E88.[address] Moody Immunodefi ciency disorder 219590003 D84.9 09/14/2020 : IgG defeciency : Resubmitte d for IVIG and f.u in 4 months Since then has had sinus infections and was to see ENT and also to get CPAP Juan Moody Gastroesop hageal reflux disease without esophagitis 544492661 K21.9 On omeprazole 07/01/2021 : EGD: Dr Hernandez states 02/14/2022 that she does not need this n Generalize d anxiety disorder 94502800 F41.1 Does wellNot suicidal or homicidal, declines any referralsO n buspirone 5mg po bid Vertigo 584163713 R42 See case from 04/07/2020 ; Vertigo from getting a CT scan, started on the meclizine0 04/08/2020: Dr Pride ENT: Is to get an audiogram and VNG, c/o tinnitius S/P CT Sinuses 04/04/2020 S/p VNG 04/30/2020 On diazepam, states that she takes this very rarelyOn meclizineT akes it as needed Does see ENT Dr Pride now as needed Vitamin D deficiency 347 05852 E55.9 Low back pain 216393201 M54.50 MRI L Spine 11/09/2022 Dr Vega 11/15/2022 Skin lesion 96411323 L98 .9 Has been on dapsone, given by Dr Lawson Migraine 87473024 G43.90 9 On sumatripta n 25mg as needed given by Dr Moody Chronic sinusitis 171272 [address] sinus: 04/20/[address] Howard on her own Dr Howard 07/06/2023 to get surgery Excess mai niculus of abdomen 3469905284 101 E65 Has had pannus since she has lost a weight, has noted a rash likely erin none today, refer to plastic surgery Screening mammography 24 342196 Z12.31 Pain of bi lateral hands 8258922500 7585536 M79.[address] Vega 04/27/2023 [id number] Carmelina fontenot MD [facility] Internal [facility] [address] [place] [address] [place] [address] 10/16/2023 08:57:46 10/16/2023 09:47:23 Excess panniculus of abdomen 9568263218 101 E65 Has had pannus since she [...] back pain Swelling o f clavicular region 0988656652 R22.30 Get an Xray Chest [id number] Carmelina fontenot MD [facility] Internal [facility] [address] [facility] [address] [place] [facility] [place] [address] 01/22/2024 11:10:02 01/22/2024 12:10:56 Excess panniculus of abdomen 4164032361 101 E65 Has had pannus since she [...] plastic surgery Swelling o f clavicular region 0928468598 R22.30 Get an Xray Chest Xr chest 10/16/2023 Xr chest 11/17/2023 Screening - NAD 86542081 3 Z13.9 C-scope: 02/06/19: Dr Jazmin dimas [...] Handicap orlin filled out 11/28/2019 RTC in 3 monthsDo labsER if worseShe did verbalize her understand ing of the above Essential hypertension 50085169 I10 On spironolac tone 50mg dailyOn losartan 100mg dailyOn diltiazem CD 120mg dailyget labs See [facility] Dr Yang last OV 04/04/2023 , f/u in 6 months Stress test 12/08/2021 : Neg Hyperlipidemia 50882170 E78.5 On pravastati n 20mg dailyNot on fenofibrat e 48mg daily Diet and exerciseGe t labs Does see Dr Cardoso 12/20/2021 , next 06/20/2022 Type 2 jossie betes mellitus without complication 760517632 E11.9 Type 2 diabetes mellitus without complicati onOn metformin ER 500mg bidNot on ozempicOn mounjaro 10mg weeklySeen by Dr Cardoso Needs to see eye MD and has an apt with Dr Ting Maher seen Dr Adair podiatry, and was told had toe nail fungusIs to now get diabetic shoes Asthma 765326253 J45.90 9 03/23/2021 : CT chest11/03: CT chest On albuterolO n albuterol HHNOn advairOn ipratropiu mNot on budesonide On flonaseOn loratidine On singulairO n spiriva Not on symbicort On spirivaOn O2 Has seen the pulmonary MD Dr Maxwell Rheumatoid arthritis [address] Nancy Ruiz in past Dr Jitendra Zaragoza leflunamid e given by Dr Ham 01/03/2024 On hydroxychl oroquine given by Dr Ham 12/28/2023 On CelebrexOn Simponi AriaOn prednisone given by Dr Hart tramadol, given by Dr Ham Dry eyes 256835462 H04.1 23 On restasis, does well on this Hypothyroidism 01107955 E03.9 US thyroid 11/22/18US thyroid 08/04/2020 On unithyroid 88mcgs daily Urinary incontinence 165 926353 R32 On oxybutynin ER 10mg daily, Sienna Pena 03/01/2021 : Dr Mi, does well, notify if any symptoms Eruption 777051385 R21 On triamcinol one Does well Pneumonia 736292340 J18. 9 S/p COVID 19 pneumonia, seen by Dr Sommers ID, multiple hospitaliz ationsNow sees Dr Maxwell Hyperprolactinemia 01462 2004 E22.1 04/08/2020 : Dr Pride ENT: Is to get an audiogram and VNG, as per ENT diagnosed with prolactino ma, will d/w endocrine Seen by Dr Cardoso Osteoarthritis 194765476 M19.90 Dr Vega: L shoulder rotater cuff, knee pain, Bilateral hip pain Hypoproteinemia 2773768 E88.[address] Moody Immunodefi ciency disorder 631520021 D84.9 09/14/2020 : IgG defeciency : Resubmitte d for IVIG and f.u in 4 months Since then has had sinus infections and was to see ENT and also to get CPAP Juan Moody Gastroesop hageal reflux disease without esophagitis 003418348 K21.9 On omeprazole 07/01/2021 : EGD: Dr Hernandez states 02/14/2022 that she does not need this n Generalize d anxiety disorder 66050783 F41.1 Does wellNot suicidal or homicidal, declines any referralsO n buspirone 5mg po bid Vertigo 585312188 R42 See case from 04/07/2020 ; Vertigo [...] Howard ENT 12/07/2023 Vitamin D deficiency 347 10680 E55.9 Low back pain 343787022 M54.50 MRI L Spine 11/09/2022 Dr Vega 11/15/2022 Skin lesion 18246083 L98 .9 Has been on dapsone, given by Dr Lawson Migraine 92417182 G43.90 9 On sumatripta n 25mg as needed given by Dr Moody Chronic sinusitis 997140 [address] sinus: 04/20/[address] Howard on her own Dr Howard 07/06/2023 to get surgery Screening mammography 24 463027 Z12.31 Pain of bi lateral hands 6490804845 3775790 M79.[address] Vega 04/27/2023 [id number] Carmelina fontenot MD [facility] [place] [address] [facility] [place] [address] 05/29/2024 14:26:51 05/29/2024 15:37:12 Screening - NAD 217283903 Z13.9 C-scope: 02/06/19: Dr Jazmin dimas next [...] the above Excess mai niculus of abdomen 8348488123 101 E65 Has had pannus since she [...] OV 05/03/2024 Swelling o f clavicular region 5397681409 R22.30 Get an Xray Chest Xr chest 10/16/2023 Xr chest 11/17/2023 Essential hypertension 74832314 I10 On spironolac tone 50mg dailyOn losartan 100mg dailyOn diltiazem CD 120mg dailyget labs See [facility] Dr Yang last OV 04/04/2023 , f/u in 6 months Stress test 12/08/2021 : Neg Hyperlipidemia 35173368 E78.5 On pravastati n 20mg dailyNot on fenofibrat e 48mg daily Diet and exerciseGe t labs Does see Dr Cardoso 12/20/2021 , next 06/20/2022 Type 2 jossie betes mellitus without complication 716623465 E11.9 Type 2 diabetes mellitus without complicati onOn metformin ER 500mg bidNot on ozempicOn mounjaro 10mg weeklySeen by Dr Cardoso Needs to see eye MD and has an apt with Dr Ting Maher seen Dr Adair podiatry, and was told had toe nail fungusIs to now get diabetic shoes Asthma 683373178 J45.90 9 03/23/2021 : CT chest11/03: CT chest On albuterolO n albuterol HHNOn advairOn ipratropiu mNot on budesonide On flonaseOn loratidine On singulairO n spiriva Not on symbicort On spirivaOn O2 Has seen the pulmonary MD Dr Maxwell Rheumatoid arthritis [address] Nancy Ruiz in past Dr Jitendra Zaragoza leflunamid e given by Dr Ham 01/03/2024 On hydroxychl oroquine given by Dr Ham 12/28/2023 On CelebrexOn Simponi AriaOn prednisone given by Dr Hart tramadol, given by Dr Ham Dry eyes 926245742 H04.1 23 On restasis, does well on this Hypothyroidism 56384197 E03.9 US thyroid 11/22/18US thyroid 08/04/2020 On unithyroid 88mcgs daily Urinary incontinence 165 852116 R32 On oxybutynin ER 10mg daily, Sienna Pena 03/01/2021 : Dr Mi, does well, notify if any symptoms Eruption 259911654 R21 On triamcinol one Does well Pneumonia 124638088 J18. 9 S/p COVID 19 pneumonia, seen by Dr Painter FAN, [facility] sees Dr Maxwell Hyperprolactinemia 30949 2004 E22.1 04/08/2020 : Dr Pride ENT: Is to get an audiogram and VNG, as per ENT diagnosed with prolactino ma, will d/w endocrine Seen by Dr Cardoso,refer red 05/29/2024 [address] Vega: L shoulder rotater cuff, knee pain, Bilateral hip pain Hypoproteinemia 7429249 E88.[address] Moody Immunodefi ciency disorder 074380495 D84.9 09/14/2020 : IgG defeciency : Resubmitte d for IVIG and f.u in 4 months Since then has had sinus infections and was to see ENT and also to get CPAP Jaun Moody Gastroesop hageal reflux disease without esophagitis 135877919 K21.9 On omeprazole 07/01/2021 : EGD: Dr Hernandez states 02/14/2022 that she does not need this n Generalize d anxiety disorder 95329249 F41.1 Does wellNot suicidal or homicidal, declines any referralsO n buspirone 5mg po bid Vertigo 213494352 R42 See case from 04/07/2020 ; Vertigo [...] Howard ENT 12/07/2023 Vitamin D deficiency 347 89718 E55.9 Low back pain 709553365 M54.50 MRI L Spine 11/09/2022 Dr Vega 11/15/2022 Skin lesion 29941317 L98 .9 Has been on dapsone, given by Dr Lawson Migraine 93515065 G43.90 9 On sumatripta n 25mg as needed given by Dr Moody Chronic sinusitis 744761 [address] sinus: 04/20/[address] Howard on her own Dr Howard 07/06/2023 to get surgery Screening mammography 24 940267 Z12.31 Pain of bi lateral hands 3454840203 0641425 M79.[address] Vega 04/27/2023 Screening for osteoporosis 070848071 Z13.820 Screening for malignant neoplasm of colon 752633853 Z12.11 [id number] Carmelina fontenot MD [facility] Internal [facility] [place] [address] [facility] [place] [address] 07/15/2024 09:06:08 07/15/2024 09:45:48 Screening - NAD 792219246 Z13.9 C-scope: 02/06/19: Dr Jazmin dimas next [...] the above Excess mai niculus of abdomen 9325350608 101 E65 Has had pannus since she [...] Dr Nichols Swelling o f clavicular region 6097566544 R22.30 Get an Xray Chest Xr chest 10/16/2023 Xr chest 11/17/2023 Essential hypertension 10500802 I10 On spironolac tone 50mg dailyOn losartan 100mg dailyOn diltiazem CD 120mg dailyget labs See [facility] Dr Yang last OV 04/04/2023 , f/u in 6 months Stress test 12/08/2021 : Neg Hyperlipidemia 26258729 E78.5 On pravastati n 20mg dailyNot on fenofibrat e 48mg daily Diet and exerciseGe t labs Does see Dr Cardoso 12/20/2021 , next 06/20/2022 Type 2 jossie betes mellitus without complication 801722420 E11.9 Type 2 diabetes mellitus without complicati onOn metformin ER 500mg bidNot on ozempicOn mounjaro 10mg weeklySeen by Dr Cardoso Needs to see eye MD and has an apt with Dr Ting Maher seen Dr Adair podiatry, and was told had toe nail fungusIs to now get diabetic shoes Asthma 744126623 J45.90 9 03/23/2021 : CT chest11/03: CT chest On albuterolO n albuterol HHNOn advairOn ipratropiu mNot on budesonide On flonaseOn loratidine On singulairO n spiriva Not on symbicort On spirivaOn O2 Has seen the pulmonary MD Dr Maxwell Rheumatoid arthritis [address] Nancy Ruiz in past Dr Jitendra Zaragoza leflunamid e given by Dr Ham 01/03/2024 On hydroxychl oroquine given by Dr Ham 12/28/2023 On CelebrexOn Simponi AriaOn prednisone given by Dr Hart tramadol, given by Dr Jitendra Ham 05/31/2024 Dry eyes 260277014 H04.1 23 On restasis, does well on this Hypothyroidism 22942048 E03.9 US thyroid 11/22/18US thyroid 08/04/2020 On unithyroid 88mcgs daily Urinary incontinence 165 532131 R32 On oxybutynin ER 10mg daily, Sienna Pena 03/01/2021 : Dr Mi, does well, notify if any symptoms Eruption 647402915 R21 On triamcinol one Does well Pneumonia 856770098 J18. 9 S/p COVID 19 pneumonia, [facility] Sommers [place] Hyperprolactinemia 20951 2004 E22.1 04/08/2020 : Dr Pride ENT: Is to get an audiogram and VNG, as per ENT diagnosed with prolactino ma, will d/w endocrine Seen by Dr Cardoso,refer red 05/29/2024 Dr Cardoso 07/09/2024 [address] Vega: L shoulder rotater cuff, knee pain, Bilateral hip pain Hypoproteinemia 6219221 E88.[address] Moody Immunodefi ciency disorder 029404664 D84.9 09/14/2020 : IgG defeciency : Resubmitte d for IVIG and f.u in 4 months Since then has had sinus infections and was to see ENT and also to get CPAP Juan Moody Gastroesop hageal reflux disease without esophagitis 539694335 K21.9 On omeprazole 07/01/2021 : EGD: Dr Hernandez states 02/14/2022 that she does not need this n Generalize d anxiety disorder 91145764 F41.1 Does wellNot suicidal or homicidal, declines any referralsO n buspirone 5mg po bid Vertigo 814644862 R42 See case from 04/07/2020 ; Vertigo [...] Howard ENT 12/07/2023 Vitamin D deficiency 347 51064 E55.9 Low back pain 867643377 M54.50 MRI L Spine 11/09/2022 Dr Vega 11/15/2022 Skin lesion 88658383 L98 .9 Has been on dapsone, given by Dr Lawson Migraine 08791680 G43.90 9 On sumatripta n 25mg as needed given by Dr Moody Chronic sinusitis 322445 [address] sinus: 04/20/[address] Howard on her own Dr Howard 07/06/2023 to get surgery Screening mammography 24 090290 Z12.31 Pain of bi lateral hands 8118633336 6745760 M79.[address] Vega 04/27/2023 Screening for osteoporosis 258211349 Z13.820 Screening for malignant neoplasm of colon 861420764 Z12.11 Pain of right breast 213 7817205 N64.4 Get US/mammogr am R breast Right side d chest pain 245853635 R07.89 Addendum: 07/15/2024 :Xrays negative, case sentIs on celebrex, take this as needed, could be muscle sprain, get US/mammogr am breast, may need CT chest if not better [id number] Carmelina fontenot MD [facility] [address] [place] [address] 09/16/2024 09:38:28 09/16/2024 10:58:16 Screening - NAD 869186755 Z13.9 C-scope: 02/06/19: Dr Jazmin dimas next [...] her chart Excess mai niculus of abdomen 2399089020 101 E65 Has had pannus since she [...] Dr Nichols Swelling o f clavicular region 0624391406 R22.30 Get an Xray Chest Xr chest 10/16/2023 Xr chest 11/17/2023 Essential hypertension 29577534 I10 On spironolac tone 50mg dailyOn losartan 100mg dailyOn diltiazem CD 120mg dailyget labs See [facility] Dr Yang last OV 04/04/2023 , f/u in 6 months Stress test 12/08/2021 : Neg Hyperlipidemia 64048654 E78.5 On pravastati n 20mg dailyNot on fenofibrat e 48mg daily Diet and exerciseGe t labs Does see Dr Cardoso 12/20/2021 , next 06/20/2022 Type 2 jossie betes mellitus without complication 420405911 E11.9 Type 2 diabetes mellitus without complicati [...] fungusIs to now get diabetic shoes Asthma 837208267 J45.90 9 03/23/2021 : CT chest11/03: CT chest On albuterolO n albuterol HHNOn advairOn ipratropiu mNot on budesonide On flonaseOn loratidine On singulairO n spiriva Not on symbicort On spirivaOn O2 Has seen the pulmonary MD Dr Maxwell Rheumatoid arthritis [address] Nancy Ruiz in past Dr Jitendra Zaragoza leflunamid e given by Dr Ham 01/03/2024 On hydroxychl oroquine given by Dr Ham 12/28/2023 On CelebrexOn Simponi AriaOn prednisone given by Dr Hart tramadol Dr Ham 05/31/2024 Dry eyes 795965960 H04.1 23 On restasis, does well on this Hypothyroidism 33257015 E03.9 US thyroid 11/22/18US thyroid 08/04/2020 On unithyroid 75mcgs daily, not 88mcgsHas seen Dr Cardoso Urinary incontinence 165 428793 R32 On oxybutynin ER 10mg daily, Sienna Pena 03/01/2021 : Dr Mi, does well, notify if any symptoms Eruption 502234012 R21 On triamcinol one Does well Pneumonia 163917674 J18. 9 S/p COVID 19 pneumonia, [facility] Dr Sommers ID[facility] Hyperprolactinemia 12274 2004 E22.1 04/08/2020 : Dr Pride ENT: Is to get an audiogram and VNG, as per ENT diagnosed with prolactino ma, will d/w endocrine Seen by Dr Cardoso,refer red 05/29/2024 Dr Cardoso 07/09/2024 Oste[address]19[address]90 [address] Vega: L shoulder rotater cuff, knee pain, Bilateral hip pain Hypoproteinemia 5085492 E88.[address] Moody Immunodefi ciency disorder 222931098 D84.9 09/14/2020 : IgG defeciency : Resubmitte d for IVIG and f.u in 4 months Since then has had sinus infections and was to see ENT and also to get CPAP Juan Moody Gastroesop hageal reflux disease without esophagitis 475676070 K21.9 On omeprazole 07/01/2021 : EGD: Dr Hernandez states 02/14/2022 that she does not need this n Generalize d anxiety disorder 85399742 F41.1 Does wellNot suicidal or homicidal, declines any referralsN ot on buspirone 5mg po bid Vertigo 184411936 R42 See case from 04/07/2020 ; Vertigo [...] more antibiotic rinses Vitamin D deficiency 347 88184 E55.9 Low back pain 859271356 M54.50 MRI L Spine 11/09/2022 Dr Vega 11/15/2022 Skin lesion 45433272 L98 .9 Has been on dapsone, given by Dr Lawson Migraine 22062734 G43.90 9 On sumatripta n 25mg as needed given by Dr Moody Chronic sinusitis 947693 [address] sinus: 04/20/[address] Howard on her own Dr Howard 07/06/2023 to get surgeryDr Jenae Alfonso 09/03/2024 , now only saline rinses, and f/u in 6 months Pain of bi lateral hands [id number] 4985392 M79.[address] Vega 04/27/2023 Screening for osteoporosis 853854743 Z13.820 Screening for malignant neoplasm of colon 654117523 Z12.11 Right side d chest pain 993226431 R07.89 Addendum: 07/15/2024 :Xrays negative, case sentIs on celebrex, take this as needed, could be muscle sprain, get US/mammogr am breast, may need CT chest if not better OV 09/16/2024 :Resolved [id number] Carmelina fontenot MD S_GMG Primary Care [facility] [address] [facility] [place] [address] 02/10/2025 09:29:30 02/10/2025 10:02:29 Screening - NAD 809084679 Z13.9 C-scope: 02/06/19: Dr Jazmin dimas next [...] historyUTD COVID 19 vaccineGet RSV vaccine Handicap atiyabrianda filled out 11/28/2019 RTC in 4 monthsDo labsER if nakulShe did verbalize her understand ing of the above 45 minutes spent with the patient, her labs were reviewed, discussed her clavicular swelling with Dr Moody and her use of Ubrelvy Excess mai niculus of abdomen 6196969341 101 E65 Has had pannus since she [...] 07/15/2024 : See the surgeon Dr Nichols OV 02/10/2025 : No further apt as per her history, does well Swelling o f clavicular region 4082394835 R22.30 Get an Xray Chest Xr chest 10/16/2023 Xr chest 11/17/2023 Essential hypertension 58639917 I10 On spironolac tone 50mg dailyOn losartan 100mg dailyOn diltiazem CD 120mg dailyget labs See [facility] Dr Yang last OV 04/04/2023 , f/u in 6 months Stress test 12/08/2021 : Neg [facility] Dr Yang 12/03/2024 , f/u in 6 months Hyperlipidemia 64336694 E78.5 On pravastati n 20mg dailyNot on fenofibrat e 48mg daily Diet and exerciseGe t labs Does see Dr Cardoso Type 2 jossie betes mellitus without complication 987083380 E11.9 Type 2 diabetes mellitus without complicati onOn metformin ER 500mg bidNot on ozempicOn mounjaro 12.5mg weekly filled by Dr Cardoso, tolerates it well as per her history 09/16/2024 , no MEN2 or MCT or thyroid or parathyroi d or pancreatic complaints Seen by Dr Cardoso Needs to see eye MD and has an apt with Dr Ting Maher seen Dr Adair podiatry, and was told had toe nail fungusIs to now get diabetic shoes Asthma 327963587 J45.90 9 03/23/2021 : CT chest11/03: CT chest On albuterolO n albuterol HHNOn advairOn ipratropiu mNot on budesonide On flonaseOn loratidine On singulairO n spiriva Not on symbicort On spirivaOn O2 Has seen the pulmonary MD Dr Maxwell Rheumatoid arthritis [address] Nancy Ruiz in past Dr Jitendra Zaragoza leflunamid e given by Dr Ham 01/03/2024 On hydroxychl oroquine given by Dr Ham 12/28/2023 On CelebrexOn Simponi AriaOn prednisone given by Dr Hart tramadol Dr Ham 05/31/2024 Dry eyes 314694002 H04.1 23 On restasis, does well on this Hypothyroidism 35342929 E03.9 US thyroid 11/22/18US thyroid 08/04/2020 On unithyroid 75mcgs daily, not 88mcgsHas seen Dr Cardoso Urinary incontinence 165 818953 R32 On oxybutynin ER 10mg daily, Sienna Pena 03/01/2021 : Dr Mi, does well, notify if any symptoms Eruption 802030828 R21 On triamcinol one Does well Pneumonia 315329158 J18. 9 S/p COVID 19 pneumonia, seen by Dr Sommers ID, multiple hospitaliz ationsNow sees Dr Maxwell Hyperprolactinemia 69351 2004 E22.1 04/08/2020 : Dr Pride ENT: Is to get an audiogram and VNG, as per ENT diagnosed with prolactino ma, will d/w endocrine Seen by Dr Cardoso,refer red 05/29/2024 Dr Cardoso 07/09/2024 [address] Vega: L shoulder rotater cuff, knee pain, Bilateral hip pain Hypoproteinemia 4806621 E88.[address] Moody Immunodefi ciency disorder 413808676 D84.9 09/14/2020 : IgG defeciency : Resubmitte d for IVIG and f.u in 4 months Since then has had sinus infections and was to see ENT and also to get CPAP doneDr Fransisco Gastroesop hageal reflux disease without esophagitis 973268288 K21.9 On omeprazole 07/01/2021 : EGD: Dr Hernandez states 02/14/2022 that she does not need this n Generalize d anxiety disorder 32599937 F41.1 Does wellNot suicidal or homicidal, declines any referralsN ot on buspirone 5mg po bid Vertigo 263221827 R42 See case from 04/07/2020 ; Vertigo [...] more antibiotic rinses Vitamin D deficiency 347 52547 E55.9 Low back pain 562698333 M54.50 MRI L Spine 11/09/2022 Dr Vega 11/15/2022 Skin lesion 19344508 L98 .9 Has been on dapsone, given by Dr Lawson Migraine 52876734 G43.90 9 On sumatripta n 25mg as needed given by Dr Edmondson get on Ubrelvy, all side effects explained to her, she wants to first try the samples and she will come to the office tomorrow 02/11/2025 Chronic sinusitis 447647 [address] sinus: 04/20/[address] Howard on her own Dr Howard 07/06/2023 to get surgeryDr Jenae Alfonso 09/03/2024 , now only saline rinses, and f/u in 6 months Pain of bi lateral hands 8496947768 9577056 M79.[address] Vega 04/27/2023 Screening for osteoporosis 643631599 Z13.820 Screening for malignant neoplasm of colon 461095305 Z12.11 Right side d chest pain 719563178 R07.89 Addendum: 07/15/2024 :Xrays negative, case sentIs [...] Member ID Diop Member ID Guarantor Name 01/22/2024 1 [facility] Moises Em [id number] Karen Em 01/22/2024 2 [place] Karen Em [id number] Karen Em 05/29/2024 1 [facility] Moises Em [id number] Karen Em 05/29/2024 2 [place] Em [id number] Karen Em 07/15/2024 1 [facility] Moises Em [id number] Karen Em 07/15/2024 2 [place] Em [id number] Karen Em 09/16/2024 1 [facility] Moises Em [id number] Karen Em 09/16/2024 2 [place] Karen Em [id number] Karen Chavez Manav 02/10/2025 1 [facility] Moises Partida Manav [id number] Karen Em 02/10/2025 2 [place] Karen Em [id number] Karen Chavez Manav Notes Date Note Type Note Provider Name and Address Organization Details Recorded Time 01/22/2024 text/html 12/17/18:Here to establish carePast Hx:HTNHLDAsthmaHypot [...] agreeable to this visitShe has done the labsShanthony has seen ENT, Dr Cardoso, and Dr Moody and Dr Koo feels well today OV 10/15/2020:Here for tele visit and is agreeable to do this visitShe is doing well today, has not done the labsShanthony has seen ELLIOTT and Dr Moody and [...] was recently seen in the ER at [facility] [place] for bronchitis and d/c without any abx, then she called Dr Maxwell who gave her the abx, doing well todayShe did do the labs, she is here with her OV 05/04/2022:Here for her routine aptShe is doing well at this time, was seen in the ER at [place] and treated with steroids and levaquin, c/o [...] Solis MD [address], [place], [address], [place] [facility] [employer] 01/22/2024 14:06:54 05/29/2024 text/html 12/17/18:Here to establish [...] agreeable to this visitShe has done the labsShanthony has seen ENT, Dr Cardoso, and Dr [...] her post hosp aptShe was admitted last [place] and D/c yesterday for UTI and partial [...] was recently seen in the ER at [facility] [place] for bronchitis and d/c without any abx, then she called Dr Maxwell who gave her the abx, doing well todayShe did do the labs, she is here with her OV 05/04/2022:Here for her routine aptShe is doing well at this time, was seen in the ER at [place] and treated with steroids and levaquin, c/o [...] s/p sinus surgery Carmelina Solis MD [address] [facility], [address], [place], [address], [place] [facility] [employer] 05/29/2024 17:23:28 07/15/2024 text/html 12/17/18:Here to establish [...] was recently seen in the ER at [facility] [place] for bronchitis and d/c without any abx, then she called Dr Maxwell who gave her the abx, doing well todayShe did do the labs, she is here with her OV 05/04/2022:Here for her routine aptShe is doing well at this time, was seen in the ER at [place] and treated with steroids and levaquin, c/o [...] acute or remote trauma Carmelina Solis MD [address] [facility], [address], [place], [address], [facility] [employer] 07/15/2024 13:56:47 09/16/2024 text/html 12/17/18:Here to establish [...] agreeable to this visitShe has done the labsShanthony has seen ENT, Dr Cardoso, and Dr [...] was recently seen in the ER at [facility] for bronchitis and d/c without any abx, then she called Dr Maxwell who gave her the abx, doing well todayShe did do the labs, she is here with her OV 05/04/2022:Here for her routine aptShe is doing well at this time, was seen in the ER at [place] and treated with steroids and levaquin, c/o [...] did do the labs Carmelina Solis MD [address] [place] [address], [facility] [address], [place], [address], [facility] [employer] 09/16/2024 19:17:25 02/10/2025 text/html 12/17/18:Here to establish carePast Hx:HTNHLDAsthmaHypot hyroidismReviewed [...] was recently seen in the ER at [facility] [place] for bronchitis and d/c without any abx, then she called Dr Maxwell who gave her the abx, doing well todayShe did do the labs, she is here with her OV 05/04/2022:Here for her routine aptShe is doing well at this time, was seen in the ER at [place] and treated with steroids and levaquin, c/o [...] well today, she did do the labs OV 02/10/2025: Here for her f/u apt, she feels well today, she did do the labs, she does state that she has seen Dr Ham's PLAYER DEVELOPMENT MANAGER, as well as Dr Moody, she also would like to get on another medication for her migraines as the sumatriptan takes 24 hours to 'kick in' Carmelina Solis MD [address], [address], [place], [address], [place] [facility] [email or web address] 02/10/2025 10:17:22 OBGyn Episode No OBEpisode recorded.
--- OUTSIDE RECORDS SUMMARY | 2025-02-14 07:23 | XMS_ITS | Referral Summary ---
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
[2025-02-15 07:53] LABS: DHEA-Sulfate 28 mcg/dL (9-118)
[2025-02-19 13:09] LABS: Adrenocorticotropic Hormone 13 pg/mL (6-50)
== END 2025-02-14 07:15 | disposition home or self-care (01) ==
LOC: ANHLAB 07:19
PROVIDERS: PCP Internal Medicine; Visit Provider Internal Medicine Endocrinology, Diabetes & Metabolism
DX: E11.65 Type 2 diabetes mellitus with hyperglycemia (principal); E66.9 Obesity, unspecified
CPT/HCPCS: 36415; 82024; 82627

== ENCOUNTER 2025-02-18 08:48 | Outpatient (CLI) | payer OTHER, MEDICARE, SELFPAY ==
--- OUTSIDE RECORDS SUMMARY | 2025-02-18 09:20 | XMS_ITS | Patient Health Record ---
Author Organization [facility] Address [address] [address] Care Team Providers Care Side Seam Tender Name Role Phone Cordelia Cardoso Primary Care Provider [phone] Migration, Provider Unavailable Unavailable Allergies Allergen (clinical [...] review and pick correct strength-formula tion from [facility] options. If intended option is not shown, [...] review and pick correct strength-formula tion from Jalbum options. If intended option is not shown, discontinue and re-order from Quick Search* 06/10/2024 Active Liothyronine Sodium 5 MCG 1 tab(s) orally once a day for 90 days 08/26/2024 Active Fluticasone-Salmeterol 500 MCG-50 MCG 1 INH INHALED 2 TIMES A DAY for 30 DAY(S) *Please review and pick correct strength-formula tion from Jalbum options. If intended option is not shown, discontinue and re-order from Quick Search* 06/10/2024 Active Vitamin E 180 MG 1 CAP(S) ORALLY ONCE A DAY *Please review and pick correct strength-formula tion from Jalbum options. If intended option is not shown, discontinue and re-order from Quick Search* Active Mounjaro 12.5 MG/0.5ML as directed subcutaneously once a week Active Ondansetron HCl 4 MG 1 tab(s) orally every 8 hours twice daily if needed after infusions for IGG 06/10/2024 Active Unithroid 75 MCG (0.075 MG) for 90 DAYS *Please review and pick correct strength-formula tion from Jalbum options. If intended option is not shown, [...] review and pick correct strength-formula tion from Jalbum options. If intended option is not shown, discontinue and re-order from Quick Search* Active SUMAtriptan Succinate 25 MG 1 tab(s) orally once 06/10/2024 Active Albuterol Sulfate HFA 108 (90 Base) MCG/ACT 2 puff(s) inhaled every 6 hours 06/10/2024 Active Triamcinolone Acetonide 0.1% 1 SHELBIE ORALLY 2 TIMES A DAY (AFTER MEALS) *Please review and pick correct strength-formula tion from Jalbum options. If intended option is not shown, [...] Status Risk Notes Problem Vitamin D deficiency (00857192) Vitamin D deficiency, unspecified (E55.9) Active confirmed Problem Hyperglycemia due to type 2 diabetes mellitus (507670987132560) Type 2 diabetes mellitus with hyperglycemia (E11.65) Active confirmed Problem Hyperlipidemia (20408507) Hyperlipidemia, unspecified (E78.5) Active confirmed Problem Hypothyroidism (92553247) Hypothyroidism, unspecified (E03.9) Active confirmed Problem Obesity (761496133) Obesity, unspecified (E66.9) Active confirmed Problem Menopause (064909134) Menopausal and female climacteric states (N95.1) Active [...] 96% Encounters Encounter Location Date Provider Diagnosis [facility] [employer] [address] [place] [address] 08/26/2024 Cordelia Cardoso Type 2 diabetes mellitus with hyperglycemia E11.65 ; Vitamin D deficiency, unspecified E55.9 ; Hyperlipidemia, unspecified E78.5 ; Hypothyroidism, unspecified E03.9 ; Menopausal and female climacteric states N95.1 ; Obesity, unspecified E66.9 and Dietary counseling and surveillance Z71.3 [employer] [facility] [address] [place] [address] 11/25/2024 Cordelia Cardoso Type 2 diabetes mellitus with hyperglycemia E11.65 ; Hyperlipidemia, unspecified E78.5 ; Hypothyroidism, unspecified E03.9 ; Obesity, unspecified E66.9 and Dietary counseling and surveillance Z71.3 [facility] [address] [place] [address] 09/14/2024 Provider Migration Hypothyroidism, unspecified E03.9 and Menopausal and female climacteric states N95.[address] [employer] [address] [address] [place] [address] 06/10/2024 Cordelia Cardoso Type 2 diabetes mellitus with hyperglycemia E11.65 ; Hyperlipidemia, unspecified E78.5 ; Abnormal weight gain R63.5 ; Vitamin D deficiency, unspecified E55.9 ; Other fatigue R53.83 ; Vitamin B12 deficiency anemia, unspecified D51.9 and Hypothyroidism, unspecified E03.9 [facility] - Cordelia Cardoso [address] [place] [address] 07/02/2024 Cordelia Cardoso [facility], [facility] - Cordelia Cardoso [address] [place] [address] 07/02/2024 Cordelia Cardoso [facility] [employer] [address] [place] [address] 11/24/2024 Cordelia Cardoso [facility], [facility] - Cordelia Cardoso [address] [place] [address] 11/27/2024 [facility], [facility] - Cordelia Cardoso [address] [place] [address] 07/09/2024 Cordelia Cardoso Type 2 diabetes mellitus [...] food labels. Recommended patient to utilize the diabetesMedical Direct Clubb.Moobia from the ADA website to help with [...] food labels. Recommended patient to utilize the diabetesProofpoint.Moobia from the ADA website to help with [...] to 1200 per day if sedentary vs 3562-4624 calories depending on caloric expenditure. She was [...] procedures, referring and communicating with other health health care manager, documenting clinical information in the [...] procedures, referring and communicating with other health health care manager, documenting clinical information in the [...] procedures, referring and communicating with other health health care manager, documenting clinical information in the [...] the possibility of port placement with a casino investigator, evaluating the risks and benefits.Explore the option [...] procedures, referring and communicating with other health health care manager, documenting clinical information in the [...] Appt Details Provider Name:Cordelia Cardoso, 10:00:00 AM, [address] , [place], [address], Insurance Providers Payer Name Payer Address Payer Phone Subscriber Number Group Number Insured Name Patient Relationship to Insured Coverage Start Date Coverage End Date [facility] [address] [address] [place] [address] [id number] Karen Em Self - patient is the insured [facility] Medicare Part B [place] Claims Department [address] [address] [place] [address] [id number] Karen Em Self - patient is the insured Medical (General) History Medical History History ICD Code type 2 DM hypothyroidism IGG deficiency rheumatoid arthritis dyslipidemia vitamin D deficiency
--- OUTSIDE RECORDS SUMMARY | 2025-02-18 09:20 | XMS_ITS | Clinical Summary ---
Author Organization Health Plans [facility] [facility] Address [address] [place] [address] Care Team Providers Care Oil Well Service Operator Helper Name Role Phone Dirk Solis MD Primary [...] Blood-Glucose Meter (True Metrix Glucose Meter) by [facility]Non-Drug; Combo Route) route. Active blood sugar diagnostic (True Metrix Glucose Test Strip) Strip 1 Strip by See Admin Instructions route. Active lancets 1 Each by Misc.(Non-Drug; Combo Route) route. Active pravastatin (PRAVACHOL) 20 mg tablet Take 20 mg by mouth daily with supper. Active fluticasone propionate (FLONASE) 50 mcg/spray [place], Suspension nasal inhaler Administer 2 Sprays in [...] 04/10/20 20 Active influenza virus tri-split (FLUZONE 4045-8513 IM) Fluzone 6432-2577 45 mcg (15 mcg x 3)/0.5 mL [...] Type Department Care Team Description 01/31/2025 Abstract [facility] Oncology and Hematology - [place] [address] [place] [address] Max Moody MD 01/15/2025 External Device Data STL ABSTRACTION Provider, Abstract 01/04/2025 External Device Data STL ABSTRACTION Provider, Abstract 01/03/2025 External Device Data STL ABSTRACTION Provider, Abstract 12/31/2024 External Device Data STL ABSTRACTION Provider, Abstract 12/13/2024 Abstract [facility] Oncology and Hematology [facility] [address] [place] [address] Max Moody MD 11/29/2024 Abstract [facility] Oncology and Hematology [place] [address] [place] [address] Max Moody MD 11/21/2024 External Device Data STL ABSTRACTION Provider, Abstract from Last 3 Months Family History Medical [...] Comments Blood Pressure 154/77 09/18/2024 2:57 PM LOG BUYER Pulse 75 09/18/2024 2:57 PM LOG BUYER Temperature 36.6 C (97.8 F) 09/18/2024 2:57 PM LOG BUYER Respiratory Rate 16 09/18/2024 2:57 PM LOG BUYER Oxygen Saturation 91% 09/18/2024 2:57 PM LOG BUYER Inhaled Oxygen Concentration - - Weight 92.5 kg (204 lb) 09/18/2024 2:57 PM LOG BUYER Height 160 cm (5' 3 ) 05/05/2022 1:16 PM CDT Body Mass Index 36.14 05/05/2022 1:16 PM CDT Plan of Treatment Upcoming Encounters Date Type Department Care Team (Late st Contact Info) Description 03/19/2025 10:00 AM CDT Office Visit [facility] Oncology and Hematology [facility] [address] [facility] [address] [place] [address] Max Moody MD [address] [facility] [address] [place] [address] Health Maintenance Due Date Last [...] 2024 2, 08/11/2020, 08/05/2019, Additional history exists DIABETES HBA1C Q 6 MONTHS 11/20/20242023, 03/29/2024, 05/12/2023, Additional history exists DTAP/TDAP/TD VACCINES (2 - T d or Tdap) 06/01/2027 06/01/2017 Insurance MEDICARE PART A AND B [facility] CHOICE [id number] Care Teams Oil Well Service Operator Helper Relationship Specialty Start Date End Date Dirk Solis MD PCP - General Internal Medicine 04/14/20
--- OUTSIDE RECORDS SUMMARY | 2025-02-18 09:21 | XMS_ITS ---
Author Organization [employer] [facility] [employer] [facility] Address [address] [place] [address] Care Team Providers Care Desk Pen Set Assembler Name Role Cordelia Roberts Primary Care Provider Medications Medication SIG (Take, Route, Fr equency, Duration) Notes Start Date End Date Status dexAMETHasone 1 MG 1 tablet at 10pm Ora lly once for 1 days 11/27/2024 Active Encounters Encounter Location Date Provider Diagnosis [facility] - Cordelia Cardoso [address] [place] [address] 11/27/2024 Cordelia Cardoso Plan Of Treatment Medication Medication Name Sig Start Date Stop Date Notes dexAMETHasone 1 MG 1 tablet at 10pm Orally once for 1 days 11/27/2024 Next Appt Details Provider Name:Cordeliajudie Cardoso, 10:00:00 AM, [address], [place], [address], Progress Notes * Ena EMhDOB: [birth year] (59 yo F)Acc No.[id number]:11/27/2024 Patient: Eric RichardsSTANISLAWJOSH Karen :1965 A ge:59 Y S ex:Female Address:[address] [facility], [place] [address] * Refills Start dexAMETHasone Tablet, 1 MG, Orally, 1, 1 tablet at 10pm, once, 1 days, Refills=1 * true * Date: Generated for Printi ng/Faxing/eTransmitting on: 0 02/18/2025 09:21 AM CDT
--- OUTSIDE RECORDS SUMMARY | 2025-02-18 09:21 | XMS_ITS ---
Author Organization [facility] Address [address] [address] Care Team Providers Care Beauty Culturist Apprentice Name Role Phone Cordelia Cardoso Primary Care Provider [phone] Allergies Allergen (clinical drug ingredient) Drug/Non Drug [...] review and pick correct strength-formula tion from [employer] options. If intended option is not shown, discontinue and re-order from Quick Search* 06/10/2024 Active Fluticasone-Salmeterol 500 MCG-50 MCG 1 INH INHALED 2 TIMES A DAY for 30 DAY(S) *Please review and pick correct strength-formula tion from [employer] options. If intended option is not shown, [...] review and pick correct strength-formula tion from [employer] options. If intended option is not shown, [...] review and pick correct strength-formula tion from [employer] options. If intended option is not shown, discontinue and re-order from Quick Search* Active Gamunex-C 10% DIRECTED INTRAVENOUSLY EVERY 4 WEEKS *Please review and pick correct strength-formula tion from [employer] options. If intended option is not shown, [...] review and pick correct strength-formula tion from [employer] options. If intended option is not shown, discontinue and re-order from SRL [employer] Search* Active Mounjaro 12.5 MG/0.5ML as directed [...] 96% Encounters Encounter Location Date Provider Diagnosis [facility] - Cordelia Cardoso [address] [place] [address] 11/25/2024 Cordelia Cardoso Type 2 diabetes kristian [...] the possibility of port placement with a day worker, evaluating the risks and benefits.Explore the option [...] procedures, referring and communicating with other health care director, documenting clinical information in the electronic or [...] the possibility of port placement with a day worker, evaluating the risks and benefits.Explore the option [...] procedures, referring and communicating with other health care director, documenting clinical information in the electronic or [...] Reason: labwork Provider Name:Cordelia Cardoso, 10:00:00 AM, [address] , [place], [address], Progress Notes * Kvng EMOB: [birth year] (59 yo F)Acc No.[id number]:11/25/2024 Progress Notes Patient: Karen PARISI Provider: Anna Cardoso MD :1965 A ge:59 Y S ex:Female Date:11/25/2024 Address:[address] [place], [place] [address] Subjective: * Chief Complaints: * 1 . [...] *Please review and pick correct strength-formulation from [employer] options. If intended option is not shown, discontinue and re-order from Quick Search*, Taking Gamunex-C 10% SOLUTION DIRECTED INTRAVENOUSLY EVERY 4 WEEKS , Notes to Pharmacist: *Please review and pick correct strength-formulation from [employer] options. If intended option is not shown, [...] *Please review and pick correct strength-formulation from [employer] options. If intended option is not shown, [...] *Please review and pick correct strength-formulation from [employer] options. If intended option is not shown, discontinue and re-order from Quick Search*, Taking Fluticasone-Salmeterol 500 MCG-50 MCG POWDER 1 INH INHALED 2 TIMES A DAY , Notes to Pharmacist: *Please review and pick correct strength-formulation from [employer] options. If intended option is not shown, discontinue and re-order from Quick Search*, Taking Arnuity Ellipta FUROATE 50 MCG POWDER DIRECTED INHALED EVERY 24 HOURS , Notes to Pharmacist: *Please review and pick correct strength[facility]formulation from [facility] options. If intended option is [...] the possibility of port placement with a day worker, evaluating the risks and benefits.Explore the option [...] procedures, referring and communicating with other health care director, documenting clinical information in the electronic or other health record, independently interpreting results and communicating results to the patient/family/caregiver and care coordinating patient plan. Patient alert and oriented x 4 and aware of discussion noted above and in agreeance to plan in management of type 2 DM/well controlled, hyperlipidemia, hypothyroidism, weight management/obesity. * Procedure Codes: 9 9401 P/M SUPERVISOR MICROFILM DUPLICATING UNIT, INDIV 15 MIN * Follow Up: 4 Months (Reason: labwork) * Billing Information: * Visit Code: 62870 Office Visit, Est Pt., Level 4. * Procedure Codes: 23110 P/M SUPERVISOR MICROFILM DUPLICATING UNIT, INDIV 15 MIN. * X RAY DEVELOPER Sign off status: Completed true * Provider: Anna Cardoso MD Date: 0 11/25/2024 Generated for Latisha kerns/Julienne/Rick on: 0 02/18/2025 09:20 AM CDT History and Physical Notes * [...]
--- OUTSIDE RECORDS SUMMARY | 2025-02-18 09:21 | XMS_ITS ---
Author Organization [facility] Address [address] [place] [address] Care Team Providers Care Wharf Worker Name Role Cordelia Roberts Primary Care Provider Encounters Encounter Location Date Provider Diagnosis [facility] [address] [place] [address] 11/24/2024 Cordelia Cardoso Plan Of Treatment Next Appt Details Provider Name:Cordelia Cardoso, 10:00:00 AM, [address] [place], [address], Progress Notes * Ena EMhDOB: [birth year] (59 yo F)Acc No.[id number]:11/24/2024 Patient: Karen PARISI :1965 A ge:59 Y S ex:Female Address:[address] [place] [address], [place] [address] * true * Date: Generated for Latisha kerns/Julienne/eTransmitting on: 0 02/18/2025 09:21 AM CDT
--- OUTSIDE RECORDS SUMMARY | 2025-02-18 09:21 | XMS_ITS | CONTINUITY OF CARE DOCUMENT ---
Author Name james ramirez Address Unknown Organization [facility] Address [address] [facility] [address] [place] [address] Phone [phone] Care Team Providers Care Educational Technology Coordinator Name Role Phone Alcides RODRIGUEZ, Cha Unavailable CARMELINA MENJIVAR MD Unavailable [phone] CARMELINA MENJIVAR MD Unavailable [phone] PROBLEMS Condition Status Date Provider Notes Family [...] In-person encounter Office Visit Cha Mcgrath MD [facility] - In-person encounter Office Visit Cha Mcgrath MD [facility] Cardiology examination - In-person encounter Office Visit Cha Mcgrath MD [facility] - In-person encounter Office Visit Cha Mcgrath MD [facility] - In-person encounter Office Visit Cha Mcgrath MD [facility] - In-person encounter Office Visit Cha Mcgrath MD [facility] - In-person encounter Office Visit Cha Mcgrath MD [facility] - In-person encounter Office Visit Cha Mcgrath MD [facility] - In-person encounter Office Visit Cha Mcgrath MD [facility] Office - In-person encounter Office Visit Cha Mcgrath MD [facility] Exposure to COVID-19 coronavirus ericardial effusion resolved 01/2021 - In-person encounter Office Visit Cha Mcgrath MD [facility] Sleep apnea, mild on CPAPDiastolic dysfunction - In-person encounter Office Visit Cha Mcgrath MD [facility] COPD - In-person encounter Office Visit Cha Mcgrath MD [facility] Family History of Hyperlipidemia:Family History of Hypertension:CAD - LAD per CT, nml stress test 02/15 - In-person encounter Office Visit Cha Mcgrath MD [facility] Morbid obesity - In-person encounter Office Visit Cha Mcgrath MD [facility] HypothyroidismHTN essentialCAD - LAD per CT, [...] blood pressure, cuff size large Gaurang joseph Gerry blood pressure, diastolic 88 mm[Hg] Gaurang joseph Luke blood pressure, systolic 132 mm[Hg] [facility] oxygen saturation, oximetry 94 % [facility] 80 /min [facility] weight E&M 209 [lb_av] [facility] respiratory rate E&M 12 /min [facility] height E&M 63 [in_i] [facility] Body Mass Index (Ratio) 35.07 kg/m2 Jj Mcgrath MD blood pressure, cuff size regular [facility] blood pressure, diastolic 97 mm[Hg] [facility] blood pressure, systolic 151 mm[Hg] [facility] oxygen saturation, oximetry 96 % [facility] respiratory rate E&M 16 /min Mindy [...] lder height E&M 63 [in_i] Lana Mayorga [facility] Body Mass Index (Ratio) 54.38 kg/m2 Jj Mcgrath MD pulse rate 92 /min Magy Carlin l blood pressure, diastolic 81 mm[Hg] Cy ruth ann Russo blood pressure, systolic 156 mm[Hg] Razia ever Russo blood pressure, cuff size regular Cy allakycorie Russo respiratory rate E&M 18 /min Magy Russo oxygen saturation, oximetry 99 % Magy Russo weight E&M 307 [lb_av] Magy Carlin height E&M 63 [in_i] Magy [facility] Body Mass Index (Ratio) 56.50 kg/m2 Jj Mcgrath MD respiratory rate E&M 16 /min [facility] blood pressure, diastolic 92 mm[Hg] To [facility] blood pressure, systolic 163 mm[Hg] [facility] oxygen saturation, oximetry 97 % [facility] pulse rate 87 /min [facility] weight E&M 319 [lb_av] [facility] height E&M 63 [in_i] [facility] Body Mass Index (Ratio) 57.92 kg/m2 Jj Mcgrath MD blood pressure, diastolic 84 mm[Hg] [facility] blood pressure, systolic 136 mm[Hg] Norma lynette [facility] oxygen saturation, oximetry 96 % Argelia [facility] respiratory rate E&M 16 /min Brittan [facility] pulse rate 78 /min Argelia [facility] weight E&M 327 [lb_av] Argelia [facility] height E&M 63 [in_i] Argelia [facility] Body Mass Index (Ratio) 57.56 kg/m2 Jj [...] #30, 30 days supply, [facility] , Filled 01/14/2019 SOCIAL HISTORY [...] Payer name Policy type / Coverage type [place] red republican ID SHOWELL [employer] Commercial insurance co [facility] [id number] MEDICARE SECONDARY VA Medicare [id number] ADVANCE DIRECTIVES Name Date DISCUSSED - NO DECISION MADE TREATMENT PLAN Date Name Performer [id number],S, Oli Ahmedza i [id number],S, Oli Ahmedza i [id number],S, Oli Ahmedza i [id number],S, Oli Ahmedza i [id number],S, Oli Ahmedza i [id number],S, Oli Ahmedza i [id number],S, Oli Ahmedza i [id number],B, Argelia Mohinder obsmeyer [id number],S, Argelia Vines obsmeyer [id number],S, Argelia Mohinder obsmeyer [id number],S, Argelia Mohinder obsmeyer [id number],S, Argelia Mohinder obsmeyer [id number],S, Oli Ahmedza i [id number],B, Oli Ahmedza i [id number],S, Oli Ahmedza i [id number],S, Oli Ahmedza i [id number],S, Oli Ahmedza i [id number],S, hCa Mcgrath MD [id number],S, Cha Mcgrath MD [id number],S, Cha Mcgrath MD [id number],S, Cha Mcgrath MD [id number],B, Cha Mcgrath MD [id number],S, Oli Ahmedza i [id number],S, Oli Ahmedza i [id number],S, Oli Ahmedza i [id number],S, Oli Ahmedza i [id number],S, Oli Ahmedza i [id number],W, Loi Ahmedza i [id number],S, Oli Ahmedza i [id number],S, Oli Ahmedza i [id number],S, Oli Ahmedza i [id number],S, Oli Ahmedza i [id number],S, Oli Ahmedza i [id number],B, Oli Ahmedza i [id number],S, Oli Ahmedza i [id number],S, Oli Ahmedza i [id number],S, Oli Ahmedza i [id number],S, Oli Jacobs i [id number],S, Oli Jacobs i [id number],S, Oli Jacobs i [id number],S, Oli Jacobs i [id number],S, Oli Jacobs i [id number],S, Oli Jacobs i [id number],S, Oli Jacobs i [id number],S, Oli Jacobs i Cardiology: H er updated [...] capsule daily Cha Mcgrath MD Cardiology Cha Mgcrath MD Cardiology: H er updated medication list [...] mouth once a day Oli Tellez Cardiology [facility] Card[facility]: H er updated medication list for this problem includes: Losartan 100 Mg Tablet (Losartan) ..... Take 1 tablet by mouth once a day Spironolactone 50 Mg Tablet (Spironolactone) ..... Take 1 tablet by mouth once a day Diltiazem Hcl 120 Mg Capsule,extended Release 24hr (Diltiazem hcl) ..... Take 1 capsule by mouth once a day Olihari Tellez Cardiology [facility] Ahmedzai Cardiology: H er updated medication [...] David Yap Telehealth [facility]:Echo LVEF 60% 07/2020 David Yap [...] [facility] follow up David [facility] Cardiology follow up [facility] Cardiology Cha Mcgrath MD Cardiology Cha [...] Cardiology Tonya Franco NP Cardiology Tonya Franco BACK GRINDER Cardiology:Venous U/ S 01/31/19: 1 . No evidence of a deep vein thrombosis of the lower extremities bilaterally. 2 . Significant venous insufficiency of the greater saphenous vein bilaterally. 3 . Venous insufficiency of the left sapheno femoral junction. Tonya Franco BACK GRINDER Cardiology:Could be attributed to deconditioning vs. asthma [...] ..... Take one tablet daily Tonya Franco BACK GRINDER Cardiology Cha Mcgrath MD Date Name Stress [...]
--- OUTSIDE RECORDS SUMMARY | 2025-02-18 09:22 | XMS_ITS | Clinical Summary ---
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
--- OUTSIDE RECORDS SUMMARY | 2025-02-18 09:22 | XMS_ITS | Referral Summary ---
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
== END 2025-02-18 08:49 | disposition home or self-care (01) ==
PROVIDERS: PCP Internal Medicine; Visit Provider Internal Medicine Endocrinology, Diabetes & Metabolism
DX: E11.65 Type 2 diabetes mellitus with hyperglycemia (principal); E66.9 Obesity, unspecified
CPT/HCPCS: 82530

== ENCOUNTER 2025-02-20 08:35 | Outpatient (CLI) | payer OTHER, MEDICARE, SELFPAY ==
--- NOTE | ~2025-02-20 | CT_ITS ---
CT Scan of the Chest without Contrast: Clinical Indication: Localized swelling Technique: Contiguous sections were acquired throughout the chest without intravenous contrast. Dose reduction technique was used on this scan by utilizing automated exposure control and iterative recon struction technique. The dose-length product (DLP) was 375.36 mGy-cm. COMPARISON: 11/03/2023 Findings: There is no evidence of any significant mediastinal, hilar or axillary lymphadenopathy. Coronary cara ry calcifications are present. There is no evidence of pleural or pericardial effusion. The lungs are clear, aside from calcified granulomas. Images through the upper abdomen reveal no abnormalities. There is bony productive change at the left clavicular head, probably related to left sternoclavicular osteoarthritic change, which is similar t o prior exam. Impression: No significant abnormalities seen. 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 Correlate clinically as to whether this correlates with the area of concern. Reviewed, dictated and finalized at [facility]. Impression: No significant abnormalities seen. Bony productive change of the left clavicular head, related to left sternoclavi cular joint osteoarthritis. Correlate clinically as to whether this correlates with the area of concern.
--- OUTSIDE RECORDS SUMMARY | 2025-02-20 08:55 | XMS_ITS | Patient Health Record ---
Author Organization [facility] Address [address] [address] Care Team Providers Care Orchestra Musician Name Role Phone Cordelia Cardoso Primary Care Provider Migration, Provider Unavailable Unavailable [...] review and pick correct strength-formula tion from [employer] options. If intended option is not shown, [...] review and pick correct strength-formula tion from [employer] options. If intended option is not shown, discontinue and re-order from Quick Search* 06/10/2024 Active Liothyronine Sodium 5 MCG 1 tab(s) orally once a day for 90 days 08/26/2024 Active Fluticasone-Salmeterol 500 MCG-50 MCG 1 INH INHALED 2 TIMES A DAY for 30 DAY(S) *Please review and pick correct strength-formula tion from [employer] options. If intended option is not shown, discontinue and re-order from Quick Search* 06/10/2024 Active Vitamin E 180 MG 1 CAP(S) ORALLY ONCE A DAY *Please review and pick correct strength-formula tion from [employer] options. If intended option is not shown, discontinue and re-order from Quick Search* Active Mounjaro 12.5 MG/0.5ML as directed subcutaneously once a week Active Ondansetron HCl 4 MG 1 tab(s) orally every 8 hours twice daily if needed after infusions for IGG 06/10/2024 Active Unithroid 75 MCG (0.075 MG) for 90 DAYS *Please review and pick correct strength-formula tion from [employer]X options. If intended option is not shown, [...] review and pick correct strength-formula tion from TDX options. If intended option is not shown, discontinue and re-order from Quick Search* Active SUMAtriptan Succinate 25 MG 1 tab(s) orally once 06/10/2024 Active Albuterol Sulfate HFA 108 (90 Base) MCG/ACT 2 puff(s) inhaled every 6 hours 06/10/2024 Active Triamcinolone Acetonide 0.1% 1 SHELBIE ORALLY 2 TIMES A DAY (AFTER MEALS) *Please review and pick correct strength-formula tion from TDX options. If intended option is not shown, [...] Status Risk Notes Problem Vitamin D deficiency (01045657) Vitamin D deficiency, unspecified (E55.9) Active confirmed Problem Hyperglycemia due to type 2 diabetes mellitus (315406368116721) Type 2 diabetes mellitus with hyperglycemia (E11.65) Active confirmed Problem Hyperlipidemia (04280545) Hyperlipidemia, unspecified (E78.5) Active confirmed Problem Hypothyroidism (45087566) Hypothyroidism, unspecified (E03.9) Active confirmed Problem Obesity (371063313) Obesity, unspecified (E66.9) Active confirmed Problem Menopause (080944707) Menopausal and female climacteric states (N95.1) Active [...] 96% Encounters Encounter Location Date Provider [facility] Cordelia [facility] [address] [place] [address] 08/26/2024 Cordelia Cardoso Type 2 diabetes mellitus with hyperglycemia E11.65 ; Vitamin D deficiency, unspecified E55.9 ; Hyperlipidemia, unspecified E78.5 ; Hypothyroidism, unspecified E03.9 ; Menopausal and female climacteric states N95.1 ; Obesity, unspecified E66.9 and Dietary counseling and surveillance Z71.3 [employer] [facility] [address] [place] [address] 11/25/2024 Cordelia Cardoso Type 2 diabetes mellitus with hyperglycemia E11.65 ; Hyperlipidemia, unspecified E78.5 ; Hypothyroidism, unspecified E03.9 ; Obesity, unspecified E66.9 and Dietary counseling and surveillance Z71.3 [facility] [address] [place] [address] 09/14/2024 Provider Migration Hypothyroidism, unspecified E03.9 and Menopausal and female climacteric states N95.1 [facility] [address] [place] [address] 06/10/2024 Cordelia Cardoso Type 2 diabetes mellitus with hyperglycemia E11.65 ; Hyperlipidemia, unspecified E78.5 ; Abnormal weight gain R63.5 ; Vitamin D deficiency, unspecified E55.9 ; Other fatigue R53.83 ; Vitamin B12 deficiency anemia, unspecified D51.9 and Hypothyroidism, unspecified E03.9 [facility] - Cordelia Cardoso [address] [place] [address] 07/02/2024 Cordelia Cardoso [facility] [employer] [facility], [facility] - Cordelia Cardoso [address] [place] [address] 07/02/2024 Cordelia Cardoso [facility] PROJECTION WELDING MACHINE OPERATOR [facility] [address] [place] [address] 11/24/2024 Cordelia Cardoso [facility], [facility] - Cordelia Cardoso [id number] [place] [address] 11/27/2024 Cord[facility], [facility] - Cordelia Cardoso [address] [place] [address] 07/09/2024 Cordelia Cardoso Type 2 diabetes mellitus [...] food labels. Recommended patient to utilize the diabetesGuardian Analyticsb.Watchup from the ADA website to help with [...] food labels. Recommended patient to utilize the diabetesTelecoast Communications.Watchup from the ADA website to help with [...] to 1200 per day if sedentary vs 6863-6668 calories depending on caloric expenditure. She was [...] procedures, referring and communicating with other health home care rn, documenting clinical information in the electronic or [...] procedures, referring and communicating with other health home care rn, documenting clinical information in the electronic or [...] procedures, referring and communicating with other health home care rn, documenting clinical information in the electronic or [...] the possibility of port placement with a church musician, evaluating the risks and benefits.Explore the option [...] procedures, referring and communicating with other health home care rn, documenting clinical information in the electronic or other health record, independently interpreting results and communicating results to the patient/family/caregiver and care coordinating patient plan. Patient alert and oriented x 4 and aware of discussion noted above and in agreeance to plan in management of type 2 DM/well controlled, hyperlipidemia, hypothyroidism, weight management/obesity. Plan Of Treatment Next Appt Details Provider Name:Cordelia Cardoso, 10:00:00 AM, [address] , [place], [address], Insurance Providers Payer Name Payer Address Payer Phone Subscriber Number Group Number Insured Name Patient Relationship to Insured Coverage Start Date Coverage End Date [facility] [address] [address] [place] [address] [id number] Karen Em Self - patient is the insured [facility] Medicare Part B [place] Claims Department [address] [address] [place] [address] [id number] Karen Em Self - patient is the insured Medical (General) History Medical History History ICD Code type 2 DM hypothyroidism IGG deficiency rheumatoid arthritis dyslipidemia vitamin D deficiency
--- OUTSIDE RECORDS SUMMARY | 2025-02-20 08:56 | XMS_ITS | Clinical Summary ---
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
--- OUTSIDE RECORDS SUMMARY | 2025-02-20 08:56 | XMS_ITS | CONTINUITY OF CARE DOCUMENT ---
Author Name james ramirez Address Unknown Organization [facility] Address [address] [place] [address] Phone [phone] Care Team Providers Care E Commerce Marketing Manager Name Role Phone Alcides RODRIGUEZ, Cha Unavailable CARMELINA MENJIVAR MD Unavailable [phone] CARMELINA MENJIVAR MD Unavailable [phone] PROBLEMS Condition Status Date Provider Notes Family [...] In-person encounter Office Visit Cha Mcgrath MD [facility] - In-person encounter Office Visit Cha Mcgrath MD [facility] Cardiology examination - In-person encounter Office Visit Cha Mcgrath MD [facility] - In-person encounter Office Visit Cha Mcgrath MD [facility] - In-person encounter Office Visit Cha Mcgrath MD [facility] - In-person encounter Office Visit Cha Mcgrath MD [facility] - In-person encounter Office Visit Cha Mcgrath MD [facility] - In-person encounter Office Visit Cha Mcgrath MD [facility] Office - In-person encounter Office Visit Cha Mcgrath MD [facility] Office - In-person encounter Office Visit Cha Mcgrath MD [facility] Exposure to COVID-19 coronavirus ericardial effusion resolved 01/2021 - In-person encounter Office Visit Cha Mcgrath MD [facility] Sleep apnea, mild on CPAPDiastolic dysfunction - In-person encounter Office Visit Cha Mcgrath MD [facility] COPD - In-person encounter Office Visit Cha Mcgrath MD [facility] Family History of Hyperlipidemia:Family History of Hypertension:CAD - LAD per CT, nml stress test 02/15 - In-person encounter Office Visit Cha Mcgrath MD [facility] Morbid obesity - In-person encounter Office Visit Cha Mcgrath MD [facility] HypothyroidismHTN essentialCAD - LAD per CT, nml stress test 02/15AsthmaCHEST PAIN normal stress nuclear hortness of breathRheumatoid arthritisTobacco use, quit 22 years agovaricose veins VITAL SIGNS Date Observation Value Provider Body Mass Index (Ratio) 36.49 kg/m2 Jj Mcgrath MD pulse rate 83 /min Annia oliveira oxygen saturation, oximetry 97 % Annia Cardenas blood pressure, cuff size regular Br yadi Carednas blood pressure, diastolic 90 mm[Hg] Br yadi Cardenas blood pressure, systolic 150 mm[Hg] Norma Cardenas weight E&M 206 [lb_av] Annia Barney s height E&M 63 [in_i] Annia Barney s Body Mass Index (Ratio) 37.02 kg/m2 Jj Mcgrath MD blood pressure, cuff size large Gaurang joseph [place] blood pressure, diastolic 88 mm[Hg] Gaurang joseph Luke blood pressure, systolic 132 mm[Hg] [facility] [place] oxygen saturation, oximetry 94 % [facility] 80 /min [facility] weight E&M 209 [lb_av] [facility] respiratory rate E&M 12 /min [facility] height E&M 63 [in_i] [facility] Body Mass Index (Ratio) 35.07 kg/m2 Jj Mcgrath MD blood pressure, cuff size regular [facility] blood pressure, diastolic 97 mm[Hg] [facility] blood pressure, systolic 151 mm[Hg] [facility] oxygen saturation, oximetry 96 % [facility] respiratory rate E&M 16 /min Mindy [...] blood pressure, systolic 201 mm[Hg] George jonny Larsno oxygen saturation, oximetry 93 % Lety Larson [...] lder height E&M 63 [in_i] Lana Mayorga [facility] Body Mass Index (Ratio) 54.38 kg/m2 jJ Mcgrath MD pulse rate 92 /min Magy Carlin l blood pressure, diastolic 81 mm[Hg] Cy ruth ann Russo blood pressure, systolic 156 mm[Hg] Razia ever Russo blood pressure, cuff size regular Cy allavtcorie Russo respiratory rate E&M 18 /min Magy Russo oxygen saturation, oximetry 99 % Magy Russo weight E&M 307 [lb_av] Magy Carlin height E&M 63 [in_i] Magy [facility] Body Mass Index (Ratio) 56.50 kg/m2 Jj Mcgrath MD respiratory rate E&M 16 /min [facility] blood pressure, diastolic 92 mm[Hg] To [facility] blood pressure, systolic 163 mm[Hg] [facility] oxygen saturation, oximetry 97 % [facility] pulse rate 87 /min [facility] weight E&M 319 [lb_av] [facility] height E&M 63 [in_i] [facility] Body Mass Index (Ratio) 57.92 kg/m2 Jj Mcgrath MD blood pressure, diastolic 84 mm[Hg] [facility] blood pressure, systolic 136 mm[Hg] Norma lynette Block oxygen saturation, oximetry 96 % Argelia Block respiratory rate E&M 16 /min Brittan Block pulse rate 78 /min Argelia Block weight E&M 327 [lb_av] Argelia Block height E&M 63 [in_i] Argelia [facility] Body Mass Index (Ratio) 57.56 kg/m2 [...] NP #30, 30 days supply, Pres[facility] , Filled 01/14/2019 SOCIAL HISTORY Date Observation [...] Mcgrath MD smoking status Former smoker Tito iRos social history E&M S moking History: Salvador [...] Payer name Policy type / Coverage type Sanborn red libertarian ID PRO[employer] Commercial insurance co [facility] [id number] [place] [id number] ADVANCE DIRECTIVES Name Date DISCUSSED - NO DECISION MADE TREATMENT PLAN Date Name Performer [id number],S, Oli Ahmedza i [id number],S, Oli Ahmedza i [id number],S, Oli Ahmedza i [id number],S, Oli Ahmedza i [id number],S, Oli Ahmedza i [id number],S, Oli Ahmedza i [id number],S, Oli Ahmedza i [id number],B, Argelia Mohinder obsmeyer [id number],S, Argelia Vines obsmeyer [id number],S, Argelia Mohinder obsmeyer [id number],S, Argelia Mohinder obsmeyer [id number],S, Argelia Mohinder obsmeyer [id number],S, Oli Ahmedza i [id number],B, Oli Ahmedza i [id number],S, Oli Ahmedza i [id number],S, Oli Ahmedza i [id number],S, Oli Ahmedza i [id number],S, Cha Mcgrath MD [id number],S, Cha Mcgrath MD [id number],S, Cha Mcgrath MD [id number],S, Cha Mcgrath MD [id number],B, Cha Mcgrath MD [id number],S, Oli Ahmedza i [id number],S, Oli Ahmedza i [id number],S, Oli Ahmedza i [id number],S, Oli Ahmedza i [id number],S, Oli Ahmedza i [id number],W, Oli Ahmedza i [id number],S, Oli Ahmedza i [id number],S, Oli Ahmedza i [id number],S, Oli Ahmedza i [id number],S, Oli Ahmedza i [id number],S, Oli Ahmedza i [id number],B, Oli Ahmedza i [id number],S, Oli Ahmedza i [id number],S, Oli Ahmedza i [id number],S, Oli Ahmedza i [id number],S, Oli Jacobs i [id number],S, Oli Jaocbs i [id number],S, Oli Jacobs i [id number],S, Oli Jacobs i [id number],S, Oli Jacobs i [id number],S, Oli Jacobs i [id number],S, Oli Jacobs i [id number],S, Oli Jacobs i Cardiology: H er updated [...] mouth once a day [facility]: H er updated medication list for this problem includes: Losartan 100 Mg Tablet (Losartan) ..... Take 1 tablet by mouth once a day Spironolactone 50 Mg Tablet (Spironolactone) ..... Take 1 tablet by mouth once a day Diltiazem Hcl 120 Mg Capsule,extended Release 24hr (Diltiazem hcl) ..... Take 1 capsule by mouth once a day Olihari Tellez Cardiology [facility] Ahmedzai Cardiology: H er updated medication list [...] up Cha gonzalez MD Cardiology follow up Cah gonzalez MD Cardiology follow up Cha gonzalez [...] [facility]:Echo LVEF 60% 07/2020 [...] [facility] follow up [facility] Cardiology follow up [facility] Cardiology Cha Mcgrath MD Cardiology Cha [...] Cardiology Tonya Franco NP Cardiology Tonya Franco MANAGER ADMINISTRATION Cardiology:Venous U/ S 01/31/19: 1 . No evidence of a deep vein thrombosis of the lower extremities bilaterally. 2 . Significant venous insufficiency of the greater saphenous vein bilaterally. 3 . Venous insufficiency of the left sapheno femoral junction. Tonya Franco MANAGER ADMINISTRATION Cardiology:Could be attributed to deconditioning vs. asthma [...] ..... Take one tablet daily Tonya Franco MANAGER ADMINISTRATION Cardiology Cha Mcgrath MD Date Name Stress [...]
--- OUTSIDE RECORDS SUMMARY | 2025-02-20 08:56 | XMS_ITS | Referral Summary ---
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
--- OUTSIDE RECORDS SUMMARY | 2025-02-20 08:56 | XMS_ITS ---
Author Organization [employer] Address [address] [address] Care Team Providers Care Terminal Superintendent Name Role Phone Cordelia Cardoso Primary Care Provider Allergies Allergen (clinical drug ingredient) Drug/Non Drug Allergy documented on EMR Reaction Allergy Type Onset Date Status amoxicillin Amoxicillin Unknown Drug Allergy Act shirley amitriptyline Amitriptyline HCl Unknown Drug Allergy Active codeine Codeine Unknown Drug Allergy Active sulfadiazine sulfADIAZINE Unknown Drug Allergy A ctive fentanyl fentaNYL Unknown Drug Allergy Active REASON FOR VISIT [...] review and pick correct strength-formula tion from [employer] options. If intended option is not shown, discontinue and re-order from Quick Search* 06/10/2024 Active Fluticasone-Salmeterol 500 MCG-50 MCG 1 INH INHALED 2 TIMES A DAY for 30 DAY(S) *Please review and pick correct strength-formula tion from [employer] options. If intended option is not shown, [...] review and pick correct strength-formula tion from [employer] options. If intended option is not shown, [...] review and pick correct strength-formula tion from [employer] options. If intended option is not shown, discontinue and re-order from Quick Search* Active Gamunex-C 10% DIRECTED INTRAVENOUSLY EVERY 4 WEEKS *Please review and pick correct strength-formula tion from [employer] options. If intended option is not shown, [...] review and pick correct strength-formula tion from [employer] options. If intended option is not shown, discontinue and re-order from [employer] Search* Active Mounjaro 12.5 MG/0.5ML as directed [...] 96% Encounters Encounter Location Date Provider Diagnosis [facility] - Cordelia Cardoso [address] [place] [address] 11/25/2024 Cordelia Cardoso Type 2 diabetes kristian [...] the possibility of port placement with a physical science professor, evaluating the risks and benefits.Explore the option [...] procedures, referring and communicating with other health patient centered care specialist, documenting clinical information in the electronic or [...] the possibility of port placement with a physical science professor, evaluating the risks and benefits.Explore the option [...] procedures, referring and communicating with other health patient centered care specialist, documenting clinical information in the electronic or [...] Reason: labwork Provider Name:Cordelia Cardoso, 10:00:00 AM, [address] , [place], [address], Progress Notes * Kvng EMOB: [birth year] (59 yo F)Acc No.[id number]:11/25/2024 Progress Notes Patient: Karen PARISI Provider: Anna Cardoso MD :1965 A ge:59 Y S ex:Female Date:11/25/2024 Address:[address] [place], [place] [id number] Subjective: * Chief Complaints: * 1 . [...] *Please review and pick correct strength-formulation from [employer] options. If intended option is not shown, discontinue and re-order from Quick Search*, Taking Gamunex-C 10% SOLUTION DIRECTED INTRAVENOUSLY EVERY 4 WEEKS , Notes to Pharmacist: *Please review and pick correct strength-formulation from [employer] options. If intended option is not shown, [...] *Please review and pick correct strength-formulation from [employer] options. If intended option is not shown, [...] *Please review and pick correct strength-formulation from [employer] options. If intended option is not shown, discontinue and re-order from Quick Search*, Taking Fluticasone-Salmeterol 500 MCG-50 MCG POWDER 1 INH INHALED 2 TIMES A DAY , Notes to Pharmacist: *Please review and pick correct strength-formulation from [employer] options. If intended option is not shown, discontinue and re-order from Quick Search*, Taking Arnuity Ellipta FUROATE 50 MCG POWDER DIRECTED INHALED EVERY 24 HOURS , Notes to Pharmacist: *Please review and pick correct [facility]ulation from [facility]. If intended option is not [...] the possibility of port placement with a physical science professor, evaluating the risks and benefits.Explore the option [...] procedures, referring and communicating with other health patient centered care specialist, documenting clinical information in the electronic or other health record, independently interpreting results and communicating results to the patient/family/caregiver and care coordinating patient plan. Patient alert and oriented x 4 and aware of discussion noted above and in agreeance to plan in management of type 2 DM/well controlled, hyperlipidemia, hypothyroidism, weight management/obesity. * Procedure Codes: 9 9401 P/M WAREHOUSE COORDINATOR, INDIV 15 MIN * Follow Up: 4 Months (Reason: labwork) * Billing Information: * Visit Code: 65218 Office Visit, Est Pt., Level 4. * Procedure Codes: 17074 P/M WAREHOUSE COORDINATOR, INDIV 15 MIN. * ISH TEACHER Sign off status: Completed true * Provider: Anna Cardoso MD Date: 0 11/25/2024 Generated for Latisha kerns/Julienne/Rick on: 0 02/20/2025 08:55 AM CDT History and Physical Notes * [...]
--- OUTSIDE RECORDS SUMMARY | 2025-02-20 08:56 | XMS_ITS | Clinical Summary ---
Author Organization [employer] [facility] Address [address] [place] [address] Care Team Providers Care Produce Clerk Name Role Phone Dirk Solis MD Primary [...] Blood-Glucose Meter (True Metrix Glucose Meter) by [facility]Non-Drug; Combo Route) route. Active blood sugar diagnostic (True Metrix Glucose Test Strip) Strip 1 Strip by See Admin Instructions route. Active lancets 1 Each by Misc.(Non-Drug; Combo Route) route. Active pravastatin (PRAVACHOL) 20 mg tablet Take 20 mg by mouth daily with supper. Active fluticasone propionate (FLONASE) 50 mcg/spray [place], Suspension nasal inhaler Administer 2 Sprays in [...] 04/10/20 20 Active influenza virus tri-split (FLUZONE 7550-9019 IM) Fluzone 5038-9022 45 mcg (15 mcg x 3)/0.5 mL [...] Type Department Care Team Description 01/31/2025 Abstract [facility] Oncology and Hematology - [place] [address] [place] [address] Max Moody MD 01/15/2025 External Device Data [facility] ABSTRACTION Provider, Abstract 01/04/2025 External Device Data [facility] ABSTRACTION Provider, Abstract 01/03/2025 External Device Data [facility] ABSTRACTION Provider, Abstract 12/31/2024 External Device Data [facility] ABSTRACTION Provider, Abstract 12/13/2024 Abstract [facility] Oncology and Hematology [facility] [address] [place] [address] Max Moody MD 11/29/2024 Abstract [facility] Oncology and Hematology [facility] [address] [place] [address] Max Moody MD from Last 3 Months [...] Comments Blood Pressure 154/77 09/18/2024 2:57 PM BLINDMAKER Pulse 75 09/18/2024 2:57 PM BLINDMAKER Temperature 36.6 C (97.8 F) 09/18/2024 2:57 PM BLINDMAKER Respiratory Rate 16 09/18/2024 2:57 PM BLINDMAKER Oxygen Saturation 91% 09/18/2024 2:57 PM BLINDMAKER Inhaled Oxygen Concentration - - Weight 92.5 kg (204 lb) 09/18/2024 2:57 PM BLINDMAKER Height 160 cm (5' 3 ) 05/05/2022 1:16 PM CDT Body Mass Index 36.14 05/05/2022 1:16 PM CDT Plan of Treatment Upcoming Encounters Date Type Department Care Team (Late st Contact Info) Description 03/19/2025 10:00 AM CDT Office Visit [facility] Oncology and Hematology [facility] [address] [facility] [address] [place] [address] Max Moody MD [address] [facility] [address] [place] [address] Health Maintenance Due Date Last [...] 06/01/2017 Insurance MEDICARE PART A AND B [facility] CHOICE [id number] Care Teams Produce Clerk Relationship Specialty Start Date End Date Dirk Solis MD PCP - General Internal Medicine 04/14/20
--- OUTSIDE RECORDS SUMMARY | 2025-02-20 08:56 | XMS_ITS ---
Author Organization [facility] Address [address] [facility] [place] [address] Care Team Providers Care Intelligence Clerk Name Role Cordelia Roberts Primary Care Provider [phone] Encounters Encounter Location Date Provider Diagnosis [facility] [address] [place] [address] 11/24/2024 Cordelia Cardoso Plan Of Treatment Next Appt Details Provider Name:Cordelia Cardoso, 10:00:00 AM, [address] [place], [address], Progress Notes * Ena EMhDOB: [birth year] (59 yo F)Acc No.[id number]:11/24/2024 Patient: Karen PARISI :1965 A ge:59 Y S ex:Female Address:[address] [place] [address], [place] [address] * true * Date: Generated for Deei saumya/Julienne/eTransmitting on: 0 02/20/2025 08:56 AM CDT
--- OUTSIDE RECORDS SUMMARY | 2025-02-20 08:56 | XMS_ITS ---
Author Organization [employer] [facility] Address [address] [place] [address] Care Team Providers Care Cyber Security Instructor Name Role Cordelia Roberts Primary Care Provider Medications Medication SIG (Take, Route, Fr equency, Duration) Notes Start Date End Date Status dexAMETHasone 1 MG 1 tablet at 10pm Ora lly once for 1 days 11/27/2024 Active Encounters Encounter Location Date Provider Diagnosis [facility] - Cordelia Cardoso [address] [place] [address] 11/27/2024 Cordelia Cardoso Plan Of Treatment Medication Medication Name Sig Start Date Stop Date Notes dexAMETHasone 1 MG 1 tablet at 10pm Orally once for 1 days 11/27/2024 Next Appt Details Provider Name:Cordeliajudie Cardoso, 10:00:00 AM, [address], [place], [address], Progress Notes * Ena EMhDOB: [birth year] (59 yo F)Acc No.[id number]:11/27/2024 Patient: Eric RichardsSTANISLAWJOSH Karen :1965 A ge:59 Y S ex:Female Address:[address] [facility] [place] [address] * Refills Start dexAMETHasone Tablet, 1 MG, Orally, 1, 1 tablet at 10pm, once, 1 days, Refills=1 * true * Date: Generated for Printi ng/Faxing/eTransmitting on: 0 02/20/2025 08:56 AM CDT
== END 2025-02-20 08:36 | disposition home or self-care (01) ==
PROVIDERS: PCP Internal Medicine; Visit Provider Internal Medicine
DX: R91.8 Other nonspecific abnormal finding of lung field (principal)
CPT/HCPCS: 71250

== ENCOUNTER 2025-03-11 09:51 | Outpatient (CLI) | payer OTHER, MEDICARE, SELFPAY ==
--- OUTSIDE RECORDS SUMMARY | 2025-03-11 10:00 | XMS_ITS | Patient Health Record ---
Author Organization [facility] Address [address] [address] Care Team Providers Care Marble Installer Name Role Phone Cordelia Cardoso Primary Care [...] review and pick correct strength-formula tion from [employer] options. If intended option is not shown, [...] review and pick correct strength-formula tion from [employer] options. If intended option is not shown, discontinue and re-order from Quick Search* 06/10/2024 Active Liothyronine Sodium 5 MCG 1 tab(s) orally once a day for 90 days 08/26/2024 Active Fluticasone-Salmeterol 500 MCG-50 MCG 1 INH INHALED 2 TIMES A DAY for 30 DAY(S) *Please review and pick correct strength-formula tion from [employer] options. If intended option is not shown, discontinue and re-order from Quick Search* 06/10/2024 Active Vitamin E 180 MG 1 CAP(S) ORALLY ONCE A DAY *Please review and pick correct strength-formula tion from [employer] options. If intended option is not shown, discontinue and re-order from Quick Search* Active Mounjaro 12.5 MG/0.5ML as directed subcutaneously once a week Active Ondansetron HCl 4 MG 1 tab(s) orally every 8 hours twice daily if needed after infusions for IGG 06/10/2024 Active Unithroid 75 MCG (0.075 MG) for 90 DAYS *Please review and pick correct strength-formula tion from [employer] options. If intended option is not shown, [...] review and pick correct strength-formula tion from [employer] options. If intended option is not shown, discontinue and re-order from Quick Search* Active SUMAtriptan Succinate 25 MG 1 tab(s) orally once 06/10/2024 Active Albuterol Sulfate HFA 108 (90 Base) MCG/ACT 2 puff(s) inhaled every 6 hours 06/10/2024 Active Triamcinolone Acetonide 0.1% 1 SHELBIE ORALLY 2 TIMES A DAY (AFTER MEALS) *Please review and pick correct strength-formula tion from [employer] options. If intended option is not shown, [...] W/U Status Risk Notes Problem Vitamin D deficiency, unspecified (E55.9) Active confirmed Problem Hyperglycemia due to type 2 diabetes mellitus (990617405668108) Type 2 diabetes mellitus with hyperglycemia (E11.65) Active confirmed Problem Hyperlipidemia (94762246) Hyperlipidemia, unspecified (E78.5) Active confirmed Problem Hypothyroidism (58610491) Hypothyroidism, unspecified (E03.9) Active confirmed Problem Obesity (688900091) Obesity, unspecified (E66.9) Active confirmed Problem Menopause (709140045) Menopausal and female climacteric states (N95.1) Active [...] 96% Encounters Encounter Location Date Provider Diagnosis [facility] [address] [place] [address] 08/26/2024 Cordelia Walker Type 2 diabetes mellitus with hyperglycemia E11.65 ; Vitamin D deficiency, unspecified E55.9 ; Hyperlipidemia, unspecified E78.5 ; Hypothyroidism, unspecified E03.9 ; Menopausal and female climacteric states N95.1 ; Obesity, unspecified E66.9 and Dietary counseling and surveillance Z71.3 [employer] [address] [place] [address] 11/25/2024 Cordelia Walker Type 2 diabetes mellitus with hyperglycemia E11.65 ; Hyperlipidemia, unspecified E78.5 ; Hypothyroidism, unspecified E03.9 ; Obesity, unspecified E66.9 and Dietary counseling and surveillance Z71.3 [facility] [address] [place] [address] 09/14/2024 Provider Migration Hypothyroidism, unspecified E03.9 and Menopausal and female climacteric states N95.1 [employer] [address] [place] [address] 06/10/2024 Cordelia Walker Type 2 diabetes mellitus with hyperglycemia E11.65 ; Hyperlipidemia, unspecified E78.5 ; Abnormal weight gain R63.5 ; Vitamin D deficiency, unspecified E55.9 ; Other fatigue R53.83 ; Vitamin B12 deficiency anemia, unspecified D51.9 and Hypothyroidism, unspecified E03.9 [employer], [facility] - Cordelia Cardoso [address] [place] [address] 07/02/2024 Cordelia [facility], [facility] - Cordelia Cardoso [address] [place] [address] 07/02/2024 Cordelia Cardoso [facility] [address] [place] [address] 11/24/2024 Cordelia [facility], [facility] - Cordelia Cardoso [address] [place] [address] 11/27/2024 Cordelia [facility], [facility] - Cordelia Cardoso [address] [place] [address] 07/09/2024 Cordelia Cardoso Type 2 diabetes mellitus [...] food labels. Recommended patient to utilize the diabetesfoOPKO Healthb.com from the ADA website to help with [...] food labels. Recommended patient to utilize the diabetesMosaic Storage Systems.Neovacs from the ADA website to help with [...] to 1200 per day if sedentary vs 5844-8980 calories depending on caloric expenditure. She was provided information on [email or web address] [place]hen as this program manages metabolic syndrome [...] procedures, referring and communicating with other health nonfarm animal caretaker, documenting clinical information in the electronic or [...] procedures, referring and communicating with other health nonfarm animal caretaker, documenting clinical information in the electronic or [...] procedures, referring and communicating with other health nonfarm animal caretaker, documenting clinical information in the electronic or [...] the possibility of port placement with a card mounter, evaluating the risks and benefits.Explore the option [...] procedures, referring and communicating with other health nonfarm animal caretaker, documenting clinical information in the electronic or other health record, independently interpreting results and communicating results to the patient/family/caregiver and care coordinating patient plan. Patient alert and oriented x 4 and aware of discussion noted above and in agreeance to plan in management of type 2 DM/well controlled, hyperlipidemia, hypothyroidism, weight management/obesity. Plan Of Treatment Next Appt Details Provider Name:Cordelia Cardoso, 10:00:00 AM, [address] , [place], [address], Insurance Providers Payer Name Payer Address Payer Phone Subscriber Number Group Number Insured Name Patient Relationship to Insured Coverage Start Date Coverage End Date R [address] [address] [place] [address] [id number] Karen Em Self - patient is the insured S Medicare Part [place] [address] [address] [place] [address] [id number] Karen Em Self - patient is the insured Medical (General) History Medical History History ICD Code type 2 DM hypothyroidism IGG deficiency rheumatoid arthritis dyslipidemia vitamin D deficiency
--- OUTSIDE RECORDS SUMMARY | 2025-03-11 10:01 | XMS_ITS ---
Author Organization [id number] [facility] [employer] [facility] Address [address] [place] [address] Care Team Providers Care Community Relations Specialist Name Role Cordelia Roberts Primary Care Provider Medications Medication SIG (Take, Route, Fr equency, Duration) Notes Start Date End Date Status dexAMETHasone 1 MG 1 tablet at 10pm Ora lly once for 1 days 11/27/2024 Active Encounters Encounter Location Date Provider Diagnosis [facility], [facility] - Cordelia Cardoso [address] [place] [address] 11/27/2024 Cordelia Cardoso Plan Of Treatment Medication Medication Name Sig Start Date Stop Date Notes dexAMETHasone 1 MG 1 tablet at 10pm Orally once for 1 days 11/27/2024 Next Appt Details Provider Name:Cordeliajudie Cardoso, 10:00:00 AM, [address], [place], [address], Progress Notes * Ena EMhDOB: [birth year] (59 yo F)Acc No.[id number]:11/27/2024 Patient: Eric RichardsSTANISLAWRoas MORENOorah :1965 A ge:59 Y S ex:Female Address:[address] [facility], [place] [address] * Refills Start dexAMETHasone Tablet, 1 MG, Orally, 1, 1 tablet at 10pm, once, 1 days, Refills=1 * true * Date: Generated for Printi ng/Faxing/eTransmitting on: 0 03/11/2025 10:01 AM CDT
--- OUTSIDE RECORDS SUMMARY | 2025-03-11 10:01 | XMS_ITS | Clinical Summary ---
Author Organization [employer] [facility] Address [address] [place] [address] Care Team Providers Care Costume Draper Name Role Phone Dirk Solis MD Primary [...] Blood-Glucose Meter (True Metrix Glucose Meter) by [facility]Non-Drug; Combo Route) route. Active blood sugar diagnostic (True Metrix Glucose Test Strip) Strip 1 Strip by See Admin Instructions route. Active lancets 1 Each by Misc.(Non-Drug; Combo Route) route. Active pravastatin (PRAVACHOL) 20 mg tablet Take 20 mg by mouth daily with supper. Active fluticasone propionate (FLONASE) 50 mcg/spray [place], Suspension nasal inhaler Administer 2 Sprays in [...] 04/10/20 20 Active influenza virus tri-split (FLUZONE 5731-9106 IM) Fluzone 7788-9702 45 mcg (15 mcg x 3)/0.5 mL [...] Abstract [facility] [address] [place] [address] Max Moody MD 01/15/2025 External Device Data [facility] ABSTRACTION Provider, Abstract 01/04/2025 External Device Data [facility] ABSTRACTION Provider, Abstract 01/03/2025 External Device Data [facility] ABSTRACTION Provider, Abstract 12/31/2024 External Device Data ST[facility] ABSTRACTION Provider, Abstract 12/13/2024 Abstract [facility] [address] [place] [address] Max Moody MD from Last 3 Months [...] Comments Blood Pressure 154/77 09/18/2024 2:57 PM HOME CHILD CARE PROVIDER Pulse 75 09/18/2024 2:57 PM HOME CHILD CARE PROVIDER Temperature 36.6 C (97.8 F) 09/18/2024 2:57 PM HOME CHILD CARE PROVIDER Respiratory Rate 16 09/18/2024 2:57 PM HOME CHILD CARE PROVIDER Oxygen Saturation 91% 09/18/2024 2:57 PM HOME CHILD CARE PROVIDER Inhaled Oxygen Concentration - - Weight 92.5 kg (204 lb) 09/18/2024 2:57 PM HOME CHILD CARE PROVIDER Height 160 cm (5' 3 ) 05/05/2022 1:16 PM CDT Body Mass Index 36.14 05/05/2022 1:16 PM CDT Plan of Treatment Upcoming Encounters Date Type Department Care Team (Late st Contact Info) Description 03/19/2025 10:00 AM CDT Office Visit [facility] [address] [facility] [address] [place] [address] Max Moody MD [address] [facility] [address] [place] [address] Health Maintenance Due Date Last [...] 2024 , 08/11/2020, 08/05/2019, Additional history exists DIABETES HBA1C Q 6 MONTHS 11/20/20242023, 03/29/2024, 05/12/2023, Additional history exists DTAP/TDAP/TD VACCINES (2 - T d or Tdap) 06/01/2027 06/01/2017 Insurance MEDICARE PART A AND B [facility] CHOICE [id number] Care Teams Costume Draper Relationship Specialty Start Date End Date Dirk Solis MD PCP - General Internal Medicine 04/14/20
--- OUTSIDE RECORDS SUMMARY | 2025-03-11 10:01 | XMS_ITS ---
Author Organization [employer] [facility] Address [address] [facility] [place] [address] Care Team Providers Care Yard Spotter Name Role Cordelia Roberts Primary Care Provider Encounters Encounter Location Date Provider Diagnosis [facility] [address] [place] [address] 11/24/2024 Cordelia Cardoso Plan Of Treatment Next Appt Details Provider Name:Cordelia Cardoso, 10:00:00 AM, [address] [place], [address], Progress Notes * Ena EMhDOB: [birth year] (59 yo F)Acc No.[id number]:11/24/2024 Patient: Karen PARISI :1965 A ge:59 Y S ex:Female Address:[address] [place] [address], [place] [address] * true * Date: Generated for Deei saumya/Julienne/eTransmitting on: 0 03/11/2025 10:01 AM CDT
--- OUTSIDE RECORDS SUMMARY | 2025-03-11 10:01 | XMS_ITS | CONTINUITY OF CARE DOCUMENT ---
Author Name james ramirez Address Unknown Organization [facility] Address [address] [place] [address] Phone [phone] Care Team Providers Care Historian Research Assistant Name Role Phone Alcides RODRIGUEZ, Cha Unavailable CARMELINA MENJIVAR MD Unavailable [phone] CARMELINA MENJIVAR MD Unavailable PROBLEMS Condition Status Date Provider Notes Cardiology examination active Oli Tellez Pericardial effusion resolved 01/2021 active Cha Mcgrath MD Exposure to COVID-19 coronav irus 12/2020 active Cha Mcgrath MD Diastolic dysfunction active Jhon Miles Sleep apnea, mild on CPAP active Jhon desai COPD active David Yap Morbid obesity active Tonya Franco NP varicose veins active Cha Mcgrath MD Tobacco use, quit 22 years ago active Reina Mcgrath MD Rheumatoid arthritis active Cha Mcgrath MD Shortness of breath active Cha Mcgrath MD CHEST PAIN normal stress nuc lear 11/2021 active Cha Mcgrath MD Asthma active Cha Mcgrath MD CAD - LAD per CT, nml stress test 02/15 active Cha Mcgrath MD HTN essential active Cha Mcgrath MD Hypothyroidism active Cha Mcgrath MD Family History of Hypertension: completed - To allison Mcgrath MD Family History of Hyperlipidemia: completed - Cha Mcgrath MD ENCOUNTERS Date Type Provider Location Encounter Diag nosis - In-person encounter Office Visit Cha Mcgrath MD [facility] - In-person encounter Office Visit Cha Mcgrath MD [facility] Cardiology examination - In-person encounter Office Visit Cha Mcgrath MD [facility] - In-person encounter Office Visit Cha Mcgrath MD [facility] - In-person encounter Office Visit Cha Mcgrath MD [facility] - In-person encounter Office Visit Cha Mcgrath MD [facility] - In-person encounter Office Visit Cha Mcgrath MD [facility] - In-person encounter Office Visit Cha Mcgrath MD [facility] - In-person encounter Office Visit Cha Mcgrath MD [facility] - In-person encounter Office Visit Cha Mcgrath MD [facility] Exposure to COVID-19 coronavirus ericardial effusion resolved 01/2021 - In-person encounter Office Visit Cha Mcgrath MD [facility] Sleep apnea, mild on CPAPDiastolic dysfunction - In-person encounter Office Visit Cha Mcgrath MD [facility] COPD - In-person encounter Office Visit Cha Mcgrath MD [facility] Family History of Hyperlipidemia:Family History of Hypertension:CAD - LAD per CT, nml stress test 02/15 - In-person encounter Office Visit Cha Mcgrath MD [facility] Morbid obesity - In-person encounter Office Visit Cha Mcgrath MD [facility] HypothyroidismHTN essentialCAD - LAD per CT, [...] blood pressure, cuff size large Gaurang joseph [place] blood pressure, diastolic 88 mm[Hg] Ta jake Luke blood pressure, systolic 132 mm[Hg] Tab [facility] [place] oxygen saturation, oximetry 94 % Anna [facility] pulse rate 80 /min Anna [facility] weight E&M 209 [lb_av] Anna MarieJane [facility] respiratory rate E&M 12 /min Anna Marie [place] height E&M 63 [in_i] Anna MarieJane [facility] Body Mass Index (Ratio) 35.07 kg/m2 Jj Mcgrath MD blood pressure, cuff size regular [facility] blood pressure, diastolic 97 mm[Hg] [facility] blood pressure, systolic 151 mm[Hg] [facility] oxygen saturation, oximetry 96 % [facility] respiratory rate E&M 16 /min Mindy [...] blood pressure, cuff size large Mi alfredito Larson blood pressure, diastolic 108 mm[Hg] Mi alfredito Larson blood pressure, systolic 201 mm[Hg] George jonny Larson oxygen saturation, oximetry 93 % Lety Larson respiratory rate E&M 16 /min Deborah Adrianand pulse rate 105 /min Lety patterson weight E&M 273 [lb_av] Lety Neil patterson height E&M 63 [in_i] Lety Neil patterson Body Mass Index (Ratio) 54.91 kg/m2 [...] Mcgrath MD blood pressure, diastolic 80 mm[Hg] Swati nkLogic blood pressure, systolic 150 mm[Hg] Mayte kLogic blood pressure, cuff size regular Cy ntadonis Karan blood pressure, diastolic 80 mm[Hg] Cy ntadonis Karan blood pressure, systolic 150 mm[Hg] Razia emanuelcorie Russo pulse rate 84 /min Magy Campbel l oxygen saturation, oximetry 96 % Magy Karan respiratory rate E&M 18 /min Magycorie Russo [...] [place] Kee respiratory rate E&M 20 /min Argentnia Kee weight E&M 303 [lb_av] [place] Kee [...] blood pressure, cuff size large Ke rri Matuenenfkathy blood pressure, diastolic 80 mm[Hg] Ke rri Gruenenfelddanial blood pressure, systolic 128 mm[Hg] Jose L Guillen oxygen saturation, oximetry 98 % Lana Guillen respiratory rate E&M 18 /min Lana delgado pulse rate 85 /min Lana ontiveros weight E&M 299 [lb_av] Lana Mayorga lder height E&M 63 [in_i] Lana Ovallesabdirashidrahul [facility] Body Mass Index (Ratio) 54.38 kg/m2 Jj Mcgrath MD pulse rate 92 /min Magy Carlin l blood pressure, diastolic 81 mm[Hg] Cy ruth ann Russo blood pressure, systolic 156 mm[Hg] Razia ever Russo blood pressure, cuff size regular Cy ruth ann Russo respiratory rate E&M 18 /min Magy Russo oxygen saturation, oximetry 99 % Magy Russo weight E&M 307 [lb_av] Magy Birds Landinglet[place] height E&M 63 [in_i] Magy [facility] Body Mass Index (Ratio) 56.50 kg/m2 Jj Mcgrath MD respiratory rate E&M 16 /min [facility] blood pressure, diastolic 92 mm[Hg] To [facility] blood pressure, systolic 163 mm[Hg] [facility] oxygen saturation, oximetry 97 % [facility] pulse rate 87 /min [facility] weight E&M 319 [lb_av] [facility] height E&M 63 [in_i] [facility] Body Mass Index (Ratio) 57.92 kg/m2 Jj Mcgrath MD blood pressure, diastolic 84 mm[Hg] [facility] blood pressure, systolic 136 mm[Hg] Norma lynette Block oxygen saturation, oximetry 96 % Argelia Block respiratory rate E&M 16 /min Brittan y Block pulse rate 78 /min Argelia Block weight E&M 327 [lb_av] Argelia Block height E&M 63 [in_i] Argelia [facility] Body Mass Index (Ratio) 57.56 kg/m2 Jj Mcgrath MD blood pressure, resting Yes [facility] a Estephania blood pressure, diastolic 86 mm[Hg] Danial GaminoDariel blood pressure, systolic 150 mm[Hg] Rosalba akins KongBethanyDariel oxygen saturation, oximetry 99 % Martita Mosse pulse rate 78 /min Martita Navarroe weight E&M 325 [lb_av] Martita Gamino Dariel height E&M 63 [in_i] Martita Vieira ALLERGIES [...] once a day 06/13 - 12/12 Angie Arenashisaumya refill per faxed request from pharmacy pravastatin [...] BURNETTE, Filled 06/22/2020 omeprazole 20 mg capsule,delayed release(/EC) active Take 1 capsule by mouth once [...] mouth once a day 11/25 - 05/03 Karolinerussell Cervantes hydroxychloroquin e 200 mg tablet active tablet by mouth 11/25 Magy Russo ASPIRIN ADULT LOW DOSE 81 MG ORAL TABLET DELAYED RELEASE completed One Tab By Mouth Daily 02/05 - 11/25 Tito Rios HYDROCHLOROTHIAZI DE 25 MG ORAL TABLET completed ONE TAB DAILY 02/05 - 07/27 David Yap losartan 100 mg tablet completed Take 1 tablet by mouth once a day 02/05 - 02/03 Cha Mcgrath MD CYMBALTA 30 MG ORAL CAPSULE DELAYED RELEASE PARTICLES completed 1 tab 1x daily 02/05 - 11/25 Humzajaydon Rios valacyclovir 1 gram tablet active 1 [...] #30, 30 days supply, [facility] F[facility] 01/14/2019 SOCIAL HISTORY [...] harper social history E&M S moking History: P silvia is a former smoker. Jhon Miles social history reviewed E&M revi ewed - no changes required Jhon Miles smoking status Former smoker Lana Charlette daniel smoking status Former smoker David hankins social history E&M S moking History: P atdimitri is a former smoker. David Yap social [...] revi ewed - no changes required Cha Mcgrtah MD number of grandchildren Cha Mcgrath MD T dada Mcgrath MD smoking status Former smoker Martita [facility] [place] FUNCTIONAL STATUS Date Observation Value Provider HRA, [...] Payer name Policy type / Coverage type Gatzke red libertarian ID [employer] Commercial insurance [facility] [id number] MEDICARE SECONDARY [place] [id number] ADVANCE DIRECTIVES Name Date DISCUSSED - NO DECISION MADE TREATMENT PLAN Date Name Performer [id number],S, Oli Ahmedza i [id number],S, Oli Ahmedza i [id number],S, Oli Ahmedza i [id number],S, Oli Ahmedza i [id number],S, Oli Ahmedza i [id number],S, Oli Ahmedza i [id number],S, Oli Ahmedza i [id number],B, Argelia Mohinder obsmeyer [id number],S, Argelia Vines obsmeyer [id number],S, Argelia Mohinder obsmeyer [id number],S, Argelia Mohinder obsmeyer [id number],S, Argelia Mohinder obsmeyer [id number],S, Oli Ahmedza i [id number],B, Oli Ahmedza i [id number],S, Oli Ahmedza i [id number],S, Oli Ahmedza i [id number],S, Oli Ahmedza i [id number],S, Cha Mcgrath MD [id number],S, Cha Mcgrath MD [id number],S, Cha Mcgrath MD [id number],S, Cha Mcgrath MD [id number],B, Cha Mcgrath MD [id number],S, Oli Ahmedza i [id number],S, Oli Ahmedza i [id number],S, Oli Ahmedza i [id number],S, Oli Ahmedza i [id number],S, Oli Ahmedza i [id number],W, Oli Ahmedza i [id number],S, Oli Ahmedza i [id number],S, Oli Ahmedza i [id number],S, Oli Ahmedza i [id number],S, Oli Ahmedza i [id number],S, Oli Ahmedza i [id number],B, Oli Ahmedza i [id number],S, Oli Ahmedza i [id number],S, Oli Ahmedza i [id number],S, Oli Ahmedza i [id number],S, Oli Jacobs i [id number],S, Oli Jacobs i [id number],S, Oli Jacobs i [id number],S, Oli Jacobs i [id number],S, Oli Jacobs i [id number],S, Oli Jacobs i [id number],S, Oli Jacobs i [id number],S, Oli Jacobs i Cardiology: H er updated [...] mouth once a day Oli Tellez Cardiology Olihari Tellez Cardiology: H er updated medication list for this problem includes: Losartan 100 Mg Tablet (Losartan) ..... Take 1 tablet by mouth once a day Spironolactone 50 Mg Tablet (Spironolactone) ..... Take 1 tablet by mouth once a day Diltiazem Hcl 120 Mg Capsule,extended Release 24hr (Diltiazem hcl) ..... Take 1 capsule by mouth once a day Oli Tellez Cardiology Oli Tellez Cardiology: H er updated medication [...] Cardiology Oli Ahmedzai Cardiology Oli Ahmedzai Cardiology Oil Ahmedzai Cardiology Argelia Jacobsm eyer Cardiology Argelia Jacobsm eyer Cardiology Argelia Jacobsm eyer Cardiology Argelia Jacobsm eyer Cardiology Argelia Jacobsm eyer Cardiology Oli Ahmedzai Cardiology Oli Ahmedzai Cardiology Oli Ahmedzai Cardiology Oli Ahmedzai Cardiology Oil Ahmedzai Telehealth needs 6mo f/up - appt [...] Yap Telehealth David Yap Telehealth David Yap Telehealth:Echo LVEF 60% 07/2020 David Yap Cardiology [...] [place] pam Cardiology follow up David Audrey orozco Cardiology follow up David Audrey chung Cardiology Cha Mcgrath MD Cardiology Cha Mcgrath [...] daily Tonya Franco NP Cardiology Tonya Franco CORRECTIONAL SECURITY OFFICER Cardiology Tonya Franco CORRECTIONAL SECURITY OFFICER Cardiology:Venous U/ S 01/31/19: 1 . No evidence of a deep vein thrombosis of the lower extremities bilaterally. 2 . Significant venous insufficiency of the greater saphenous vein bilaterally. 3 . Venous insufficiency of the left sapheno femoral junction. Tonya Franco CORRECTIONAL SECURITY OFFICER Cardiology:Could be attributed to deconditioning vs. asthma [...] ..... Take one tablet daily Tonya Franco CORRECTIONAL SECURITY OFFICER Cardiology Cha Mcgrath MD Date Name Stress Regadenoson Monitor - Telemetry (Mobile Cardiac) Complete Echo Stress Regadenoson [id number]|2025-03-11 10:01:00|2025-03-11 10:00:00|XMS_ITS|BKG DAEMON|External Medical Summaries|[id number]|" Progress note - 11/25/2024 Created on: March 11, 2025 Karen Donovan : 1965 Sex: Female Author Organization [facility] Address [address] [address] Care Team Providers Care Historian Research Assistant Name Role Phone Sherif Currie Primary Care Provider Allergies Allergen (clinical drug [...] review and pick correct strength-formula tion from Revistronic options. If intended option is not shown, [...] review and pick correct strength-formula tion from Revistronic options. If intended option is not shown, discontinue and re-order from Quick Search* 06/10/2024 Active Fluticasone-Salmeterol 500 MCG-50 MCG 1 INH INHALED 2 TIMES A DAY for 30 DAY(S) *Please review and pick correct strength-formula tion from Revistronic options. If intended option is not shown, [...] review and pick correct strength-formula tion from Revistronic options. If intended option is not shown, [...] review and pick correct strength-formula tion from Revistronic options. If intended option is not shown, discontinue and re-order from Quick Search* Active Gamunex-C 10% DIRECTED INTRAVENOUSLY EVERY 4 WEEKS *Please review and pick correct strength-formula tion from Revistronic options. If intended option is not shown, [...] review and pick correct strength-formula tion from Revistronic options. If intended option is not shown, [...] 96% Encounters Encounter Location Date Provider Diagnosis [facility], [facility] - Sherif Currie [address] [place] [address] 11/25/2024 Sherif Currie Type 2 diabetes kristian itus with hyperglycemia [...] the possibility of port placement with a railroad brakeman, evaluating the risks and benefits.Explore the option [...] referring and communicating with other health patient care assistant, documenting clinical information in the electronic or [...] the possibility of port placement with a railroad brakeman, evaluating the risks and benefits.Explore the option [...] referring and communicating with other health patient care assistant, documenting clinical information in the electronic or other health record, independently interpreting results and communicating results to the patient/family/caregiver and care coordinating patient plan. Patient alert and oriented x 4 and aware of discussion noted above and in agreeance to plan in management of type 2 DM/well controlled, hyperlipidemia, hypothyroidism, weight management/obesity. Next Appt Details Follow Up: 4 Months, Reason: labwork Provider Name:Sherif Currie, 10:00:00 AM, [address], [place], [address], Progress Notes * Ena DONOVANhDOB: [birth year] (59 yo F)Acc No.[id number]:11/25/2024 Progress Notes Patient: Karen PARISI Provider: Anna Currie MD :1965 A ge:59 Y S ex:Female Date:11/25/2024 Address:[address] [place], [place] [id number] Subjective: * Chief Complaints: * 1 . [...] k idney disease. n o u rine hesitancy. no p ainful urination. N UTRITION: greater than body requirmemts y es. L ess than body requirements y es. a ppropriate / adequate y es, y es. C ONSTITUTIONAL: no w eight gain. n o l oss of appetite. n o fever. n o w eakness. n o w eight loss. n o n ight sweats. n o n ausea. n o v isual changes. n o c hange in sleep patterns. h +p reviewed y es, R OS form reviewed with patient see scan for detail. n o c hange in activity capacity. D ERMATOLOGY: rash y es. n o c hange in color of moles. n o lumps. d ry or sensitive skin y es. n o h jennifer. n o o chayo skin. n o acne. n o m oles-irregular. n o m oles-change/new. n o b oils. n o dandruff. n o e xcessive body odor. n o p soriasis. n o f ungal infections. n o n ail problems. n o r edness/inflammation. n o a thlete's foot. no s kin cancer. n o e czema. [...] heumatism. n o c hanges in skin texture. N EUROLOGY: no h eadache. n o t ingling numbness. n o s eizures. n o i nsomnia. n o m inge loss. d izziness y es. n o g ait abnormality. n o c hange in sensation anywhere on body. n o l ocalized weakness or numbness. n o b lackouts or near blackouts. n o m igraine. n o t remors. no f ainting spells. n o h ead injury. n o s troke. O PTHALMOLOGY: no d iminished vision. n o e ye irritation. n o drainage from eyes. n o b lurring of vision. n o s easonal eye sx. n o dander related eye sx. n o l oss of vision. n o c ataracts. n o g lasses/contacts. n o g laucoma. n o d etached retina. n o m acular degeneration. no e ye redness. R ESPIRATORY: shortness of [...] s inus congestion. s tuffy nose y es. no w atery eyes. n o s easonal allergies. n o h ay fever. n o a llergy. n o p olyps. n o s neezing. H EMATOLOGY/LYMPH: no s wollen glands. n o f atigue. n o l oss of appetite. e asy bruising yes. n o e asy bleeding. n o a nemia. E NT: no c old. n o c ough. n o c oughing blood. no n ose bleed. n o h earing [...] oiter. n o g um problems. n o postnasal drip. n o f requent nosebleeds. C ARDIOLOGY: no c hest pain. n o p alpitations. n o l eg swelling. n o d izziness. s hortness of breath y es, W ith activity. n o varicose veins. n o l eg cramps. n [...] lcers. n o a nal fissures. n o hepatitis. n o g allstones. n o r ed blood after bowel movements. n o v omiting. n o b loating/belching. n o d ifficulty swallowing. n o d iarrhea. no c onstipation. n o c hange in bowel habits. n o b lood in stool. M USCULOSKELETAL: joint swelling y es. j oint pain y es. n o l eg cramps. j oint stiffness y es. n o a rthritis. b ack pain y es. n o muscle aches. n o m orning stiffness. n o t endinitis. n o n jim pain. no b ursitis. n o b one marrow biopsy. n o g out. a ctivity intolerance w eakness. n o f racture. P SYCHOLOGY: no h igh stress level. n o d epression. n o sleep disturbances. n o r conrado sx worse [...] *Please review and pick correct strength-formulation from Revistronic options. If intended option is not shown, discontinue and re-order from Quick Search*, Taking Gamunex-C 10% SOLUTION DIRECTED INTRAVENOUSLY EVERY 4 WEEKS , Notes to Pharmacist: *Please review and pick correct strength-formulation from Revistronic options. If intended option is not shown, [...] *Please review and pick correct strength-formulation from Revistronic options. If intended option is not shown, discontinue and re-order from Quick Search*, Taking Gabapentin 100 MG Capsule 1 cap(s) orally 3 times a day , Taking Unithroid 75 MCG (0.075 MG) TABLET , Notes to Pharmacist: *Please review and pick correct strength-formulation from Revistronic options. If intended option is not shown, [...] *Please review and pick correct strength-formulation from Revistronic options. If intended option is not shown, discontinue and re-order from Quick Search*, Taking Fluticasone-Salmeterol 500 MCG-50 MCG POWDER 1 INH INHALED 2 TIMES A DAY , Notes to Pharmacist: *Please review and pick correct strength-formulation from Revistronic options. If intended option is not shown, discontinue and re-order from Quick Search*, Taking Arnuity Ellipta FUROATE 50 MCG POWDER DIRECTED INHALED EVERY 24 HOURS , Notes to Pharmacist: *Please review and pick correct strength-formulation from Revistronic options. If intended option is not shown, [...] 3 . H ypothyroidism, unspecified - E03.9 4 . O besity, unspecified - E66.9 [...] the possibility of port placement with a railroad brakeman, evaluating the risks and benefits.Explore the option [...] referring and communicating with other health patient care assistant, documenting clinical information in the electronic or other health record, independently interpreting results and communicating results to the patient/family/caregiver and care coordinating patient plan. Patient alert and oriented x 4 and aware of discussion noted above and in agreeance to plan in management of type 2 DM/well controlled, hyperlipidemia, hypothyroidism, weight management/obesity. * Procedure Codes: 9 9401 P/M CONGRESSIONAL AIDE, INDIV 15 MIN * Follow Up: 4 Months (Reason: labwork) * Billing Information: * Visit Code: 93926 Office Visit, Est Pt., Level 4. * Procedure Codes: 14867 P/M CONGRESSIONAL AIDE, INDIV 15 MIN. * O SERVICE AGENT Sign off status: Completed true * Provider: Anna Currie MD Date: 0 11/25/2024 Generated for Latisha kerns/Julienne/Kavitaitting on: 0 03/11/2025 10:00 AM CDT History and Physical Notes * [...] n, place & situation, appropriate judgment noted "
--- OUTSIDE RECORDS SUMMARY | 2025-03-11 10:02 | XMS_ITS | Referral Summary ---
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
--- OUTSIDE RECORDS SUMMARY | 2025-03-11 10:02 | XMS_ITS | Clinical Summary ---
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
[2025-03-11 10:07] LABS: Basophils Absolute Auto 0.1 K/mm3 (0.0-0.1); Basophils Percent Auto 1.2 % (0.2-1.2); Eosinophils Absolute Auto 0.2 K/mm3 (0-0.3); Eosinophils Percent Auto 3.6 % (0-4.4); Hemoglobin 14.4 g/dL (12.0-15.0); Immature Granulocyte Absolute 0.03 K/mm3 (0.00-0.031); Immature Granulocyte Percent A 0.5 % (0-0.5); Lymphocytes Absolute Auto 1.84 K/mm3 (0.9-3.2); Lymphocytes Percent Auto 32.8 % (18.3-44.2); Mean Corpuscular Hemoglobin 28.8 pg (26-34); Mean Platelet Volume 10.5 fl (7.4-10.4); Monocytes Absolute Auto 0.6 K/mm3 (0.1-0.6); Monocytes Percent Auto 9.8 % (2.6-8.5); Neutrophils Absolute Auto 2.9 K/mm3 (1.3-6.7); Neutrophils Percent Auto 52.1 % (45.5-73.1); Platelet Count Result 242 k/mm3 (150-375); Red Cell Distribution Width 13.2 % (11.5-14.5); White Blood Count 5.6 K/mm3 (4.5-10.0)
[2025-03-11 12:15] LABS: Anion Gap 9 mmol/L (4-12); Blood Urea Nitrogen 13 mg/dL (7-17); Calcium 9.7 mg/dL (8.4-10.2); Carbon Dioxide 30 mmol/L (22-30); Chloride 102 mmol/L (98-107); Estimated Glomerular Filt Rate > 60; Glucose 86 mg/dL (65-110); Potassium 4.5 mmol/L (3.4-5.0); Sodium 141 mmol/L (137-145)
[2025-03-11 12:39] LABS: Immunoglobulin A 114 mg/dL (70-400); Immunoglobulin G 911 mg/dL (700-1600); Immunoglobulin M 103 mg/dL (40-230)
== END 2025-03-11 09:52 | disposition home or self-care (01) ==
LOC: ANHLAB 09:52
PROVIDERS: PCP Internal Medicine; Visit Provider Internal Medicine Hematology & Oncology
DX: D80.9 Immunodeficiency with predominantly antibody defects, unspecified (principal)
CPT/HCPCS: 36415; 80048; 82784; 85025

== ENCOUNTER 2025-04-30 09:58 | Outpatient (CLI) | payer OTHER, MEDICARE, SELFPAY ==
--- OUTSIDE RECORDS SUMMARY | 2025-04-30 10:20 | XMS_ITS | Patient Health Record ---
Author Organization [facility] Address [address] [address] Care Team Providers Care Keno Manager Name Role Phone Walker Cordelia Primary [...] review and pick correct strength-formula tion from [employer] options. If intended option is not shown, [...] review and pick correct strength-formula tion from [employer] options. If intended option is not shown, discontinue and re-order from Quick Search* 06/10/2024 Active Liothyronine Sodium 5 MCG 1 tab(s) orally once a day for 90 days 08/26/2024 Active Fluticasone-Salmeterol 500 MCG-50 MCG 1 INH INHALED 2 TIMES A DAY for 30 DAY(S) *Please review and pick correct strength-formula tion from [employer] options. If intended option is not shown, discontinue and re-order from Quick Search* 06/10/2024 Active Vitamin E 180 MG 1 CAP(S) ORALLY ONCE A DAY *Please review and pick correct strength-formula tion from [employer] options. If intended option is not shown, discontinue and re-order from Quick Search* Active Mounjaro 12.5 MG/0.5ML as directed subcutaneously once a week Active Ondansetron HCl 4 MG 1 tab(s) orally every 8 hours twice daily if needed after infusions for IGG 06/10/2024 Active Unithroid 75 MCG (0.075 MG) for 90 DAYS *Please review and pick correct strength-formula tion from [employer] options. If intended option is not shown, [...] review and pick correct strength-formula tion from [employer] options. If intended option is not shown, discontinue and re-order from Quick Search* Active SUMAtriptan Succinate 25 MG 1 tab(s) orally once 06/10/2024 Active Albuterol Sulfate HFA 108 (90 Base) MCG/ACT 2 puff(s) inhaled every 6 hours 06/10/2024 Active Triamcinolone Acetonide 0.1% 1 SHELBIE ORALLY 2 TIMES A DAY (AFTER MEALS) *Please review and pick correct strength-formula tion from [employer] options. If intended option is not shown, [...] Status Risk Notes Problem Vitamin D deficiency (95726580) Vitamin D deficiency, unspecified (E55.9) Active confirmed Problem Hyperglycemia due to type 2 diabetes mellitus (012502844697943) Type 2 diabetes mellitus with hyperglycemia (E11.65) Active confirmed Problem Hyperlipidemia (58549733) Hyperlipidemia, unspecified (E78.5) Active confirmed Problem Hypothyroidism (64268617) Hypothyroidism, unspecified (E03.9) Active confirmed Problem Obesity (163307373) Obesity, unspecified (E66.9) Active confirmed Problem Menopause (937850203) Menopausal and female climacteric states (N95.1) Active [...] 96% Encounters Encounter Location Date Provider Diagnosis [facility] Cordelia [employer] [address] [place] [address] 08/26/2024 Cordelia Cardoso Type 2 diabetes mellitus with hyperglycemia E11.65 ; Vitamin D deficiency, unspecified E55.9 ; Hyperlipidemia, unspecified E78.5 ; Hypothyroidism, unspecified E03.9 ; Menopausal and female climacteric states N95.1 ; Obesity, unspecified E66.9 and Dietary counseling and surveillance Z71.3 [facility] [employer] [address] [place] [address] 11/25/2024 Cordelia Cardoso Type 2 diabetes mellitus with hyperglycemia E11.65 ; Hyperlipidemia, unspecified E78.5 ; Hypothyroidism, unspecified E03.9 ; Obesity, unspecified E66.9 and Dietary counseling and surveillance Z71.3 Located within [facility] [address] [place] [address] 09/14/2024 Provider Migration Hypothyroidism, unspecified E03.9 and Menopausal and female climacteric states N95.1 [employer] [address] [place] [address] 06/10/2024 Cordelia Cardoso Type 2 diabetes mellitus with hyperglycemia E11.65 ; Hyperlipidemia, unspecified E78.5 ; Abnormal weight gain R63.5 ; Vitamin D deficiency, unspecified E55.9 ; Other fatigue R53.83 ; Vitamin B12 deficiency anemia, unspecified D51.9 and Hypothyroidism, unspecified E03.9 [facility] - Cordelia Cardoso [address] [place] [address] 07/02/2024 Cordelia Cardoso [facility] - Cordelia Cardoso [address] [place] [address] 07/02/2024 Cordelia Cardoso [facility] [employer] [address] [place] [address] 11/24/2024 Cordelia Cardoso [facility] - Cordelia Cardoso [id number] [place] [address] 11/27/2024 Cordelia [facility] - Cordelia Cardoso [address] [place] [address] 07/09/2024 Cordelia Cardoso Type 2 diabetes mellitus [...] food labels. Recommended patient to utilize the diabetesSiNode Systemsb.Toldo from the ADA website to help with [...] food labels. Recommended patient to utilize the diabetesCar Clubs.Toldo from the ADA website to help with [...] to 1200 per day if sedentary vs 2546-3931 calories depending on caloric expenditure. She was [...] procedures, referring and communicating with other health respiratory care instructor, documenting clinical information in the electronic or [...] procedures, referring and communicating with other health respiratory care instructor, documenting clinical information in the electronic or [...] procedures, referring and communicating with other health respiratory care instructor, documenting clinical information in the electronic or [...] the possibility of port placement with a adoption worker, evaluating the risks and benefits.Explore the [...] procedures, referring and communicating with other health respiratory care instructor, documenting clinical information in the electronic or other health record, independently interpreting results and communicating results to the patient/family/caregiver and care coordinating patient plan. Patient alert and oriented x 4 and aware of discussion noted above and in agreeance to plan in management of type 2 DM/well controlled, hyperlipidemia, hypothyroidism, weight management/obesity. Plan Of Treatment No Information Insurance Providers Payer Name Payer Address Payer Phone Subscriber Number Group Number Insured Name Patient Relationship to Insured Coverage Start Date Coverage End Date [facility] [address] [address] [place] [address] [id number] Karen Em Self - patient is the insured [employer] Medicare Part B [place] Claims Department [address] [address] [place] [address] [id number] Karen Em Self - patient is the insured Medical (General) History Medical History History ICD Code type 2 DM hypothyroidism IGG deficiency rheumatoid arthritis dyslipidemia vitamin D deficiency
--- OUTSIDE RECORDS SUMMARY | 2025-04-30 10:21 | XMS_ITS | Clinical Summary ---
Author Organization [facility] Address [address] [place] [address] Care Team Providers Care Telephone Services Sales Representative Name Role Phone Dirk Solis MD Primary Care Provider Encounters Date Type Department Care Team Description 04/15/2025 1:35 PM CDT - 04/15/2025 11:59 PM CDT Hospital Encounter [facility] [address] [place] [address] Cordelia Currie MD Discharge Disposition: Home or Self Care (Routine Discharge) 04/15/2025 Travel from Last 3 Months Social History Tobacco Use Types Packs/Day Years Used Date Smoking Tobacco: Never Assessed Comments Unknown Sex and Gender Information Value Date Recorded Sex Assigned at Female 04/15/2025 1:28 PM CDT Legal Sex Female 10:03 AM CDT Gender Identity Not on file Sexual Orientation Not on file Plan of Treatment Health Maintenance Due Date Last Done Comments Cervical Cancer Screening Pap Smear (Age 30 to 64) Every 3 Years 1963 Colorectal Cancer Screening Colonoscopy (10 Years) 1963 Annual Physical 1966 Hepatitis C 1981 Cervical Cancer Screening Pap with HPV Testing (Age 30 to 64) Every 5 Years 1993 Cervical Cancer Screening with HPV 1993 Mammogram Screening 2003 COVID-19 Vaccine ( season) 2024 10/10/2023, 12/24/2021, 05/27/2021, Additional history exists Pneumococcal Vaccine: 50+ Years (3 of 3 - PCV20 or PCV21) 08/11/2025 08/11/2020, 06/01/2017 DTaP, Tdap and Td Vaccines (2 - Td or Tdap) 06/01/2027 06/01/2017 RSV Immunization or 60+ Years (1 - 1-dose 75+ series) 2038 Zoster Vaccines Completed 12/28/2020, 10/29/2020 Meningococcal B Vaccine Aged Out No l onger eligible based on patient's age to complete this topic Meningococcal Vaccine Aged Out No nuris clarisa eligible based on patient's age to complete this topic RSV Immunizations Under 20 Months Aged Out No longer eligible based on patient's age to complete this topic Procedures Procedure Name Priority Date/Time Associated Diagnosis Comments MRI BRAIN WO CON Routine 04/15/2025 3:20 PM CDT Disorder of pituitary gland, unspecified (HHS/HCC) CT ABD WO CON Routine 04/15/2025 1:49 PM CDT Disorder of adrenal gland, unspecified (HHS/HCC) from Last 3 Months Results * MRI BRAIN WO CON (04/15/2025 3:20 PM CDT) Anatomical Region Laterality Modality Head Magnetic Resonan ce 04/21/2025 2:56 PM CDT Impressions 04/21/2025 3:00 PM CDT IMPRESSION: 1. No acute intracranial abnormalities identified. No acute infarct, intracranial mass effect, or midline shift. 2. Mild senescent changes. Referred By: CORDELIA CURRIE Interpreted By: Srinath Henson MD, 04/21/2025 2:56 PM Narrative 04/21/2025 3:[address] PM [address] [address] INDICATION: Headache. Dizziness. Recently diagnosed [place]'s disease. EXAMINATION: MRI brain without contrast. TECHNIQUE: Multiplanar and multisequence MRI images of the brain were obtained without contrast. COMPARISON: None FINDINGS: No diffusion restriction or evidence of acute infarct. No intracranial mass effect or midline shift. There are a few small foci of FLAIR hyperintensity noted in the hemispheric white matter, probably due to mild small vessel disease. Mild age-appropriate prominence of the ventricles and extra-axial/subarachnoid spaces. No extra-axial collections. Proximal portions of the major intracranial arterial flow voids are patent. No hemorrhagic foci of susceptibility seen. Craniocervical junction, sellar content, pineal region are unremarkable. Partial opacification right mastoid air cells. Left mastoid air cells clear. Mild mucosal thickening in the paranasal sinuses. Visualized orbits unremarkable. Procedure Note Srinath Henson MD - 04/21/2025 [place] [id number] INDICATION: Headache. Dizziness. Recently diagnosed Kassi's disease. EXAMINATION: MRI brain without contrast. TECHNIQUE: Multiplanar and multisequence MRI images of the brain wereobtained without contrast. COMPARISON: None FINDINGS: No diffusion restriction or evidence of acute infarct. No intracranialmass effect or midline shift. There are a few small foci of FLAIRhyperintensity noted in the hemispheric white matter, probably due to mildsmall vessel disease. Mild age-appropriate prominence of the ventriclesand extra-axial/subarachnoid spaces. No extra-axial collections. Proximalportions of the major intracranial arterial flow voids are patent. Nohemorrhagic foci of susceptibility seen. Craniocervical junction, sellarcontent, pineal region are unremarkable. Partial opacification rightmastoid air cells. Left mastoid air cells clear. Mild mucosal thickeningin the paranasal sinuses. Visualized orbits unremarkable. IMPRESSION: 1. No acute intracranial abnormalities identified. No acute infarct,intracranial mass effect, or midline shift. 2. Mild senescent changes. Referred By: CORDELIA CURRIE Interpreted By: Srinath Henson MD, 04/21/2025 2:56 PM us Cordelia Currie MD MRI Final Result * CT ABD WO CON (04/15/2025 1:49 PM CDT) Anatomical Region Laterality Modality Abdomen Computed Tomogra phy 04/23/2025 9:38 AM CDT Impressions 04/23/2025 9:46 AM CDT Impression: 1. No adrenal mass is identified. 2. A 5.5 cm water density left renal cyst is identified, favored a simple cyst. 3. Additional smaller left-sided renal cysts as described in the report. Could further correlate with renal ultrasound. 4. Colonic diverticulosis without acute inflammatory changes. 5. Mild to moderate multilevel spondylosis. Referred By: CORDELIA CURRIE Interpreted By: Hossein Kaye MD, 04/23/2025 9:38 AM Narrative 04/23/2025 9:46 AM CDT [address] [address] Examination: CT ABD WO CON Clinical Information: DISORDER OF ADRENAL GLAND UNSPECIFIED Comparison: No comparison. Technique: IV contrast: None Oral contrast: None. Technical comments: Standard technique. Dose reduction: This CT exam was performed using one or more of the following dose reduction techniques: Automated exposure control, adjustment of the mA and/or kV according to patient size, and/or use of iterative reconstruction technique. Findings: LOWER CHEST Heart is normal in size. Lung bases are clear. No pleural or pericardial effusions. UPPER ABDOMEN Liver and bile ducts: Normal in size and contour. No biliary dilatation. Gallbladder: Surgically absent. Pancreas: Negative. Spleen: Negative. RETROPERITONEUM Adrenals: Negative. Kidneys: No nephrolithiasis or hydronephrosis. A 5.5 cm water density left renal cyst is identified, favored a simple cyst. An 8 mm hyperdensity is seen within the anterior cortex of the left kidney, which may represent a proteinaceous or hemorrhagic cyst but is nonspecific. Additional ill-defined slightly exophytic left upper pole cystic lesion is identified measuring approximately 1.4 cm. This also measures water density and may represent a simple cyst. Lymph nodes: No lymphadenopathy in the abdomen. BOWEL AND PERITONEUM Bowel: The partially visualized bowel demonstrates no evidence of obstruction. Colonic diverticulosis is included on this exam without acute inflammatory changes. Free air or fluid: None. VASCULATURE Atherosclerotic calcifications of the abdominal aorta without aneurysm. BONES/SOFT TISSUES Mild to moderate multilevel spondylosis. No acute osseous abnormalities identified. Procedure Note Hossein Kaye MD - 04/23/2025 [place] [id number] [place] [address] Examination: CT ABD WO CON Clinical Information: DISORDER OF ADRENAL GLAND UNSPECIFIED Comparison: No comparison. Technique: IV contrast: None Oral contrast: None. Technical comments: Standard technique. Dose reduction: This CT exam was performed using one or more of thefollowing dose reduction techniques: Automated exposure control,adjustment of the mA and/or kV according to patient size, and/or use ofiterative reconstruction technique. Findings: LOWER CHEST Heart is normal in size. Lung bases are clear. No pleural or pericardialeffusions. UPPER ABDOMEN Liver and bile ducts: Normal in size and contour. No biliary dilatation. Gallbladder: Surgically absent. Pancreas: Negative. Spleen: Negative. RETROPERITONEUM Adrenals: Negative. Kidneys: No nephrolithiasis or hydronephrosis. A 5.5 cm water density leftrenal cyst is identified, favored a simple cyst. An 8 mm hyperdensity isseen within the anterior cortex of the left kidney, which may represent aproteinaceous or hemorrhagic cyst but is nonspecific. Additionalill-defined slightly exophytic left upper pole cystic lesion is identifiedmeasuring approximately 1.4 cm. This also measures water density and mayrepresent a simple cyst. Lymph nodes: No lymphadenopathy in the abdomen. BOWEL AND PERITONEUM Bowel: The partially visualized bowel demonstrates no evidence ofobstruction. Colonic diverticulosis is included on this exam without acuteinflammatory changes. Free air or fluid: None. VASCULATURE Atherosclerotic calcifications of the abdominal aorta without aneurysm. BONES/SOFT TISSUES Mild to moderate multilevel spondylosis. No acute osseous abnormalitiesidentified. Impression: 1. No adrenal mass is identified. 2. A 5.5 cm water density left renal cyst is identified, favored a simplecyst. 3. Additional smaller left-sided renal cysts as described in the report.Could further correlate with renal ultrasound. 4. Colonic diverticulosis without acute inflammatory changes. 5. Mild to moderate multilevel spondylosis. Referred By: CORDELIA CURRIE Interpreted By: Hossein Kaye MD, 04/23/2025 9:38 AM us Cordelia Currie MD CT Final Result from Last 3 Months Insurance MEDICARE [facility] Care Teams Telephone Services Sales Representative Relationship Specialty Start Date End Date Dirk Solis MD [address] [facility] [address] [place] [address] PCP - General 04/14/25
--- OUTSIDE RECORDS SUMMARY | 2025-04-30 10:21 | XMS_ITS ---
Author Organization [facility] Address [address] [place] [address] Care Team Providers Care Lead Radiologic Technologist Name Role Phone Cordelia Cardoso Primary Care Provider REASON FOR VISIT 4 month f/u kayce Encounters Encounter Location Date Provider Diagnosis [facility] - Cordelia Cardoso [address] [place] [address] 03/25/2025 Cordelia Cardoso Plan Of Treatment No Information Progress Notes * Ena EMhDOB: [birth year] (60 yo F)Acc No.[id number]:03/25/2025 Progress Notes Patient: Karen PARISI Provider: Anna Cardoso MD :1965 A ge:60 Y S ex:Female Date:03/25/2025 Address:[address] [place], [place] [id number] Subjective: * Chief Complaints: * 1 . 4 month f/u kayce. * Medical History: Objective: * Vitals: Assessment: Plan: * Treatment: * Billing Information: * Visit Code: * Procedure Codes: * Electronic signature of Tobin Cardoso MD on 04/30/2025 at 10:21 AM CDT Sign off status: Pending * Provider: Anna Cardoso MD Date: 03/25/2025 Generated for Latisha kerns/Julienne/eTransmitting on: 04/30/2025 10:21 AM CDT
--- OUTSIDE RECORDS SUMMARY | 2025-04-30 10:21 | XMS_ITS | Clinical Summary ---
Author Organization [employer] Plans [facility]sh[facility] Address [address] [place] [address] Care Team Providers Care Home Care Chaplain Name Role Phone Dirk Solis MD Primary [...] Blood-Glucose Meter (True Metrix Glucose Meter) by [facility].(Non-Drug; Combo Route) route. Active blood sugar diagnostic (True Metrix Glucose Test Strip) Strip 1 Strip by See Admin Instructions route. Active lancets 1 Each by Misc.(Non-Drug; Combo Route) route. Active pravastatin (PRAVACHOL) 20 mg tablet Take 20 mg by mouth daily with supper. Active fluticasone propionate (FLONASE) 50 mcg/spray [place], Suspension nasal inhaler Administer 2 Sprays in [...] 04/10/20 20 Active influenza virus tri-split (FLUZONE 4969-4268 IM) Fluzone 9739-9047 45 mcg (15 mcg x 3)/0.5 mL [...] Encounters Date Type Department Care Team Description 03/25/2025 External Device Data STL ABSTRACTION Provider, Abstract 03/19/2025 10:00 AM CDT Office Visit [facility] - [place] [address] [place] [address] Max Moody MD Immunoglobulin deficiency, acquired (Primary Dx) 03/18/2025 External Device Data STL ABSTRACTION Provider, Abstract 03/13/2025 Orders Only [facility] - [place] [address] [place] [address] Max Moody MD 03/11/2025 Orders Only [facility] - [place] [address] [place] [address] Max Moody MD 01/31/2025 Abstract [facility] - [place] [address] [place] [address] Max Moody MD from Last 3 Months [...] Sign Reading Time Taken Comments Blood Pressure 155/95 03/19/2025 9:44 AM CDT Pt has not taken bp meds Pulse 79 03/19/2025 9:41 AM CDT Temperature 36.6 C (97.9 F) 03/19/2025 9:41 AM CDT Respiratory Rate 15 03/19/2025 9:41 AM CDT Oxygen Saturation 96% 03/19/2025 9:4 1 AM CDT Inhaled Oxygen Concentration - - Weight 92.2 kg (203 lb 3.2 oz) 03/19/2025 9:41 AM CDT Height 160 cm (5' 3) 05/05/2022 1:16 PM CDT Body Mass Index 36 05/05/2022 1:16 PM CDT Plan of Treatment Upcoming Encounters Date Type Department Care Team (Late st Contact Info) Description 09/19/2025 11:15 AM FIRE SUPPRESSION CAPTAIN Office Visit [facility] - [place] [address] [facility] [address] [place] [address] Max Moody MD [address] [facility] [address] [place] [address] Health Maintenance Due Date Last Done Comments DIABETES ANNUAL FOOT EXAM 1981 DIABETES MICROALBUMIN ANNUAL SCREEN 1981 LDL CHOLESTEROL ANNUAL 1981 HPV/Cotest (21-29) 1984 CERVICAL CANCER SCREENING 1993 HPV/Cotest (30-65) 1993 PAP SMEAR 1993 COLORECTAL SCREENING 2008 Colorectal Cancer Screening 2008 FIT-DNA Q 3 years 2008 FIT/FOBT Q 1 year 2008 Flex Sig/CT Colonography Q 5 years 2008 ZOSTER VACCINE (2 of 2) 12/24/2020 10/29/2020 RSV VACCINE (60+ or ) (1 - Risk 60-74 years 1-dose series) 2023 DIABETES ANNUAL RETINAL EXAM 02/10/2024 02/09/2023 Preventative Visit- Commercial 10/30/2024 DIABETES HBA1C Q 6 MONTHS 11/20/20242023, 03/29/2024, 05/12/2023, Additional history exists INFLUENZA VACCINE (#1) 2025 2, 08/11/2020, 08/05/2019, Additional history exists BREAST CANCER SCREENING 07/29/2025 07/29/2024 DTAP/TDAP/TD VACCINES (2 - T d or Tdap) 06/01/2027 06/01/2017 Procedures Procedure Name Priority Date/Time Associated Diagnosis Comments CBC WITH DIFFERENTIAL Routine 03/11/2025 3:43 PM CDT BASIC METABOLIC PANEL Routine 03/11/2025 10:08 AM CDT from Last 3 Months Results * CBC WITH DIFFERENTIAL (03/11/2025 3:43 PM CDT) Blood us Max Moody MD HEMATOLOGY ORDERABLES Final Res ult * BASIC METABOLIC PANEL (03/11/2025 10:08 AM CDT) Blood us Max Moody MD CHEMISTRY ORDERABLES Final Resu lt from Last 3 Months Insurance MEDICARE PART A AND B [facility] CHOICE [id number] Care Teams Home Care Chaplain Relationship Specialty Start Date End Date Dirk Solis MD PCP - General Internal Medicine 04/14/20
[2025-04-30 10:22] LABS: Hematocrit 42.5 % (37.0-47.0); Hemoglobin 13.6 g/dL (12.0-15.0); Immature Granulocyte Percent A 0.2 % (0-0.5); Lymphocytes Absolute Auto 1.67 K/mm3 (0.9-3.2); Mean Corpuscular HGB Conc 32.0 g/dl (32-36); Mean Corpuscular Hemoglobin 28.6 pg (26-34); Mean Corpuscular Volume 89.5 fl (80-100); Nucleated Red Blood Cells Absolute Auto 0.000 K/mm3 (0.0-0.012); Nucleated Red Blood Cells Perc 0.0 % (0.0-0.2); Platelet Count Result 223 k/mm3 (150-375); Red Blood Count 4.75 M/mm3 (4.2-5.4); White Blood Count 5.5 K/mm3 (4.5-10.0)
--- OUTSIDE RECORDS SUMMARY | 2025-04-30 10:22 | XMS_ITS | Referral Summary ---
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
--- OUTSIDE RECORDS SUMMARY | 2025-04-30 10:22 | XMS_ITS ---
Author Organization [facility] Address [address] [place] [address] Care Team Providers Care Supervisor Net Making Name Role Phone WalkerCordelia Primary Care Provider Migration, Provider Unavailable Unavailable Allergies Allergen (clinical drug ingredient) Drug/Non Drug Allergy documented on EMR Reaction Allergy Type Onset Date Status codeine Codeine Unknown Drug Allergy Active sulfadiazine sulfADIAZINE Unknown Drug Allergy A ctive fentanyl fentaNYL Unknown Drug Allergy Active amoxicillin Amoxicillin Unknown Drug Allergy Act shirley amitriptyline Amitriptyline HCl Unknown Drug Allergy Active REASON FOR VISIT [facility] Conversion Encounter Medications Medication SIG (Take, Route, Frequency, Duration) Notes Start Date End Date Status predniSONE 2.5 MG 1 tab(s) orally once a day for 30 day(s) only for flares 06/10/2024 Active Liothyronine Sodium 5 MCG 1 tab(s) orally once a day for 90 days 08/26/2024 Active Mounjaro 12.5 MG/0.5ML as directed subcutaneously once a week Active Estradiol 0.05 MG/24HR 1 PATCH transdermally 2 times a week for 90 days 08/26/2024 Active Vitamin E 180 MG 1 CAP(S) ORALLY ONCE A DAY *Please review and pick correct strength-formula tion from [facility] options. If intended option is not shown, discontinue and re-order from Quick Search* Active Albuterol Sulfate HFA 108 (90 Base) MCG/ACT 2 puff(s) inhaled every 6 hours 06/10/2024 Active Tavaborole 5 % 1 shelbie applied topically once a day for 48 week(s) 06/10/2024 Active SUMAtriptan Succinate 25 MG 1 tab(s) orally once 06/10/2024 Active Mupirocin 2 % 1 shelbie applied topically 3 times a day for 90 days 06/10/2024 Active Cyanocobalamin 1000 MCG/ML inject 1000 mcg subcutaneously once weekly for 90 days 06/10/2024 Active busPIRone HCl 5 MG 1 tab(s) orally 2 times a day for 30 day(s) 06/10/2024 Active Fluticasone-Salmeterol 500 MCG-50 MCG 1 INH INHALED 2 TIMES A DAY for 30 DAY(S) *Please review and pick correct strength-formula tion from [employer] options. If intended option is not shown, discontinue and re-order from Quick Search* 06/10/2024 Active D3 50 MCG 1 CAP(S) ORALLY ONCE A DAY for 30 DAY(S) *Please review and pick correct strength-formula tion from [employer] options. If intended option is not shown, discontinue and re-order from Quick Search* 06/10/2024 Active Arnuity Ellipta FUROATE 50 MCG DIRECTED INHALED EVERY 24 HOURS *Please review and pick correct strength-formula tion from [employer] options. If intended option is not shown, [...] tab(s) orally for 30 day(s) 06/10/2024 Active Pravastatin Sodium 20 MG 1 tab(s) orally once a day for 30 day(s) 06/10/2024 Active Losartan Potassium 100 MG 1 tab(s) orally once a day for 30 day(s) 06/10/2024 Active Celecoxib 200 MG 1 cap(s) orally once a day for 30 day(s) two caps per day 06/10/2024 Active metFORMIN HCl ER (OSM) 500 MG 1 tab(s) orally once a day for 30 day(s) twice daily 06/10/2024 Active 24 HOUR ALLERGY RELIEF 10 MG 1 TAB(S) ORALLY ONCE A DAY 10 mg daily *Please review for potential replacement for e-prescription and drug interaction check* 06/10/2024 Active Omeprazole 40 MG 1 cap(s) orally once a day for 30 day(s) 06/10/2024 Active DILTIAZEM (EQV-CARDIZEM CD) 120 MG/24 HOURS 1 CAP(S) ORALLY ONCE A DAY for 30 DAY(S) *Please review for potential replacement for e-prescription and drug interaction check* 06/10/2024 Active Unithroid 75 MCG (0.075 MG) for 90 DAYS *Please review and pick correct strength-formula tion from [employer] options. If intended option is not shown, [...] review and pick correct strength-formula tion from [employer] options. If intended option is not shown, discontinue and re-order from Quick Search* Active Gamunex-C 10% DIRECTED INTRAVENOUSLY EVERY 4 WEEKS *Please review and pick correct strength-formula tion from [employer] options. If intended option is not shown, discontinue and re-order from Quick Search* Active Encounters Encounter Location Date Provider Diagnosis [place] [address] [place] [address] 09/14/2024 Provider Migration Hypothyroidism, unspecified E03.9 and [...] MCG 1 tab(s) orall y once a day for 90 days 08/26/2024 Estradiol 0.05 MG/24HR 1 PATCH transderm ally 2 times a week for 90 days 08/26/2024 Progress Notes * Kvng EMOB: [birth year] (60 yo F)Acc No.[id number]:09/14/2024 Patient: Karen PARISI Provider: Salvador cortez Migration :1965 A ge:59 Y S ex:Female Date:09/14/2024 Address:[address] [place], [place] [id number] Pcp:Cordelia Cardoso Subjective: * Chief Complaints: * 1 . Multum To [facility] Conversion Encounter. * Medical History: * Medications: T aking Mounjaro(Tirzepatide) 12.5 MG/0.5ML Solution Auto-injector as directed subcutaneously once a week , Taking Vitamin E 180 MG CAPSULE 1 CAP(S) ORALLY ONCE A DAY , Notes to Pharmacist: *Please review and pick correct strength-formulation from [employer] options. If intended option is not shown, discontinue and re-order from Quick Search*, Taking Gamunex-C 10% SOLUTION DIRECTED INTRAVENOUSLY EVERY 4 WEEKS , Notes to Pharmacist: *Please review and pick correct strength-formulation from [employer] options. If intended option is not shown, [...] *Please review and pick correct strength-formulation from [employer] options. If intended option is not shown, [...] *Please review and pick correct strength-formulation from [employer] options. If intended option is not shown, discontinue and re-order from Quick Search*, Taking Fluticasone-Salmeterol 500 MCG-50 MCG POWDER 1 INH INHALED 2 TIMES A DAY , Notes to Pharmacist: *Please review and pick correct strength-formulation from [employer] options. If intended option is not shown, discontinue and re-order from Quick Search*, Taking Arnuity Ellipta FUROATE 50 MCG POWDER DIRECTED INHALED EVERY 24 HOURS , Notes to Pharmacist: *Please review and pick correct strength-formulation from [employer] options. If intended option is not shown, [...] Electronic signature of Prov ider Migration on 04/30/2025 at 10:21 AM CDT Sign off status: Pending * Provider: Salvador cortez Migration Date: 11/14/2023 Generated for Latisha kerns/Julienne/Rick on: 0 04/30/2025 10:21 AM CDT
--- OUTSIDE RECORDS SUMMARY | 2025-04-30 10:22 | XMS_ITS | Clinical Summary ---
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 Gender Identity Not on file Sexual Orientation [...] 12/24/2021, 05/27/2021, Additional history exists Influenza Vaccine (Season Ended) 2025 09/04/2023, 08/23/2022, 11/02/2021, Additional history exists Pneumococcal vaccine <65 (3 of 3 - PPSV23, PCV20 or PCV21) 08/11/2025 08/11/2020, 06/01/2017 DTaP/Tdap/Td Vaccine (2 - Td or Tdap) 06/01/2027 06/01/2017 Zoster Vaccine Completed 12/28/2020, 10/29/2020 Insurance [facility] [address] [facility] MEDICARE [facility] MEDICARE Care Teams Barrel Lapper Relationship Specialty Start Date End Date Rosalie Solis MD [address] [address] PCP - General 09/01/20
[2025-04-30 11:27] LABS: Immunoglobulin A 91 mg/dL (70-400); Immunoglobulin G 648 mg/dL (700-1600); Immunoglobulin M 85 mg/dL (40-230)
== END 2025-04-30 09:59 | disposition home or self-care (01) ==
LOC: ANHLAB 09:59
PROVIDERS: PCP Internal Medicine; Visit Provider Internal Medicine Hematology & Oncology
DX: D80.9 Immunodeficiency with predominantly antibody defects, unspecified (principal)
CPT/HCPCS: 36415; 82784; 85025

== ENCOUNTER 2025-07-02 10:16 | Outpatient (NON) | payer OTHER, MEDICARE, SELFPAY ==
--- OUTSIDE RECORDS SUMMARY | 2025-07-02 11:32 | XMS_ITS | Encounter Summary ---
Author Organization [facility] Address [address] [place] [address] Care Team Providers Care Concrete Stone Finishing Supervisor Name Role Phone Dirk Solis MD Primary Care Provider Encounter Details Date Type Department Care Team (Late st Contact Info) Description 07/01/2025 External Device Data ST[place] ABSTRACTION Provider, Abstract NO ADDRESS ON FILE Social History Tobacco Use Types Packs/Day Years Used Date Smoking Tobacco: Former Cigarettes 0.5 8 0 04/29/1986 - 04/29/1994 Smokeless Tobacco: Never Alcohol Use Standard Drinks/Week Comments Never 0 (1 standard drink = 0.6 oz pur e alcohol) Comments No Sex and Gender Information Value Date Recorded Sex Assigned at Not on file Legal Sex Female 2:30 PM CDT Gender Identity Not on file Sexual Orientation Not on file documented as of this encounter Plan of Treatment Upcoming Encounters Date Type Department Care Team (Late st Contact Info) Description 09/19/2025 11:15 AM GRAVURE PRESS OPERATOR Office Visit [facility] Oncology and Hematology - [place] [address] [facility] [address] [place] [address] Max Moody MD [address] [facility] [address] [place] [address] documented as of this encounter Visit Diagnoses Not on filedocumented in this encounter Care Teams Concrete Stone Finishing Supervisor Relationship Specialty Start Date End Date Dirk Solis MD PCP - General Internal Medicine 04/14/20 documented as of this encounter
--- OUTSIDE RECORDS SUMMARY | 2025-07-02 11:32 | XMS_ITS | Clinical Summary ---
Author Organization [employer] [facility] Address [address] [place] [address] Care Team Providers Care Marksmanship Instructor Name Role Phone Dirk Solis MD Primary [...] Blood-Glucose Meter (True Metrix Glucose Meter) by [facility].(Non-Drug; Combo Route) route. Active blood sugar diagnostic (True Metrix Glucose Test Strip) Strip 1 Strip by See Admin Instructions route. Active lancets 1 Each by Misc.(Non-Drug; Combo Route) route. Active pravastatin (PRAVACHOL) 20 mg tablet Take 20 mg by mouth daily with supper. Active fluticasone propionate (FLONASE) 50 mcg/spray [place], Suspension nasal inhaler Administer 2 Sprays in [...] 04/10/20 20 Active influenza virus tri-split (FLUZONE 2368-5802 IM) Fluzone 7971-8998 45 mcg (15 mcg x 3)/0.5 mL [...] Encounters Date Type Department Care Team Description 07/01/2025 External Device Data STL ABSTRACTION Provider, Abstract 06/17/2025 External Device Data STL ABSTRACTION Provider, Abstract 06/10/2025 External Device Data STL ABSTRACTION Provider, Abstract 06/04/2025 External Device Data STL ABSTRACTION Provider, Abstract 05/14/2025 External Device Data STL ABSTRACTION Provider, Abstract 05/13/2025 External Device Data STL ABSTRACTION Provider, Abstract 04/30/2025 Orders Only [facility] Oncology and Hematology - [place] [address] [address] Max Moody MD from Last 3 Months [...] st Contact Info) Description 09/19/2025 11:15 AM SLOT SUPERVISOR Office Visit [facility] Oncology and Hematology - [place] [address] [facility] [address] [place] [address] Max Moody MD [address] [facility] [address] [place] [address] Health Maintenance Due Date Last Done Comments DIABETES ANNUAL FOOT EXAM 1981 DIABETES MICROALBUMIN ANNUAL SCREEN 1981 LDL CHOLESTEROL ANNUAL 1981 HPV/Cotest (21-29) 1984 CERVICAL CANCER SCREENING 1993 HPV/Cotest (30-) 1993 PAP SMEAR 1993 COLORECTAL SCREENING 2008 Colorectal Cancer Screening 2008 FIT-DNA Q 3 years 2008 FIT/FOBT Q 1 year 2008 Flex Sig/CT Colonography Q 5 years 2008 ZOSTER VACCINE (2 of 2) 12/24/2020 10/29/2020 RSV VACCINE (60+ or ) (1 - Risk 60-74 years 1-dose series) 2023 DIABETES ANNUAL RETINAL EXAM 02/10/2024 02/09/2023 INFLUENZA VACCINE (#1) 2025 , 08/11/2020, 08/05/2019, Additional history exists BREAST CANCER SCREENING 07/29/2025 07/29/2024 DIABETES HBA1C Q 6 MONTHS 08/06/20252024, 11/02/2024, 05/20/2024, Additional history exists DTAP/TDAP/TD VACCINES (2 - T d or Tdap) 06/01/2027 06/01/2017 Procedures Procedure Name Priority Date/Time Associated Diagnosis Comments CBC WITH DIFFERENTIAL Routine 04/30/2025 12:36 PM CDT from Last 3 Months Results * CBC WITH DIFFERENTIAL (04/30/2025 12:36 PM CDT) Blood us Max Moody MD HEMATOLOGY ORDERABLES Final Res ult from Last 3 Months Insurance MEDICARE PART A AND B [facility] CHOICE [id number] Care Teams Marksmanship Instructor Relationship Specialty Start Date End Date Dirk Solis MD PCP - General Internal Medicine 04/14/20
--- OUTSIDE RECORDS SUMMARY | 2025-07-02 11:33 | XMS_ITS | Clinical Summary ---
Author Organization [facility] [place] [address] Address [address] [place] [address] Care Team Providers Care Heel Seat Sander Name Role Phone Rosalie Solis MD Primary [...] 1 tablet (75 mcg total) by mouth cafeteria aide before breakfast Active folic acid (FOLVITE) [...] on file Legal Sex Female 11:18 PM ENROLLMENT COORDINATOR Gender Identity Not on file Sexual [...] 05/27/2021, Additional history exists Influenza Vaccine (#1) 2025 3, 08/23/2022, 11/02/2021, Additional history exists Pneumococcal vaccine <65 (3 of 3 - PCV20 or PCV21) 08/11/2025 08/11/2020, 06/01/2017 DTaP/Tdap/Td Vaccine (2 - Td or Tdap) 06/01/2027 06/01/2017 Zoster Vaccine Completed 12/28/2020, 10/29/2020 Insurance [facility] H[facility]/PPO Address[facility] [address] [address] MEDICARE [facility] HMO/PPO Address: [address] [address] [place] [address] MEDICARE Care Teams Heel Seat Sander Relationship Specialty Start Date End Date Rosalie Solis MD [address] [address] PCP - General 09/01/20
== END 2025-07-02 10:17 | disposition home or self-care (01) ==
LOC: ANHGOSHLAB 10:19
PROVIDERS: PCP Internal Medicine; Visit Provider Otolaryngology
DX: R09.82 Postnasal drip (principal); J34.89 Other specified disorders of nose and nasal sinuses
CPT/HCPCS: 87070; 87075; 87205

== ENCOUNTER 2025-07-29 10:40 | Outpatient (CLI) | payer OTHER, MEDICARE, SELFPAY ==
[2025-07-29 10:57] LABS: Hematocrit 43.8 % (37.0-47.0); Hemoglobin 13.9 g/dL (12.0-15.0); Mean Corpuscular HGB Conc 31.7 g/dl (32-36); Mean Corpuscular Hemoglobin 28.5 pg (26-34); Mean Corpuscular Volume 89.8 fl (80-100); Platelet Count Result 213 k/mm3 (150-375); Red Blood Count 4.88 M/mm3 (4.2-5.4); White Blood Count 5.7 K/mm3 (4.5-10.0)
--- OUTSIDE RECORDS SUMMARY | 2025-07-29 11:27 | XMS_ITS | Clinical Summary ---
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 Gender Identity Not on file Sexual Orientation [...] Visit/Exam 18-64 1981 Covid-19 Vaccine (5 - 2024-2 6 season) 2025 10/10/2023, 12/24/2021, 05/27/2021, Additional history exists Influenza Vaccine (#1) 2025 3, 08/23/2022, 11/02/2021, Additional history exists Pneumococcal vaccine <65 (3 of 3 - PCV20 or PCV21) 08/11/2025 08/11/2020, 06/01/2017 DTaP/Tdap/Td Vaccine (2 - Td or Tdap) 06/01/2027 06/01/2017 Zoster Vaccine Completed 12/28/2020, 10/29/2020 Insurance PENDING SALE TO [facility] H[facility]/PPO Address: [address] [address] MEDICARE [facility] H[facility]/PPO Address: [address] [address] [place] [address] MEDICARE Care Teams Local Driver Relationship Specialty Start Date End Date Rosalie Solis MD [address] [address] PCP - General 09/01/20
--- OUTSIDE RECORDS SUMMARY | 2025-07-29 11:27 | XMS_ITS | Clinical Summary ---
Author Organization [facility] Address [address] [place] [address] Care Team Providers Care Coat Operator Insulator Name Role Phone Dirk Solis MD Primary Care Provider Encounters Date Type Department Care Team Description 07/03/2025 9:10 AM CDT - 07/03/2025 11:59 PM CDT Hospital Encounter [place] [place] [address] Nina Daily MD Discharge Disposition: Home or Self Care (Routine Discharge) 07/03/2025 Travel from Last 3 Months Social History [...] Mammogram Screening 2003 COVID-19 Vaccine ( season) 2025 10/10/2023, 12/24/2021, 05/27/2021, Additional history exists Pneumococcal [...] Procedure Name Priority Date/Time Associated Diagnosis Comments US RETROPERITONEAL COMP Routine 07/03/20 10:13 AM CDT Cyst of kidney, acquired from Last 3 Months Results * US RETROPERITONEAL COMP (07/03/2025 10:13 AM CDT) Anatomical Region Laterality Modality Abdomen Ultrasound 07/03/2025 10:1 3 AM CDT Impressions 07/03/2025 2:31 PM CDT IMPRESSION: 1. There is a simple benign-appearing left renal cyst. This requires no further workup or follow-up. 2. Otherwise, normal sonographic appearance of the kidneys and urinary bladder. Preliminary: Gracie Camara MD07/03/2025 10:16 AM The attending radiologist has reviewed the image(s) and agrees with the content of this report. Referred By: NINA DAILY Interpreted By: Gracie Camara MD, 07/03/2025 10:13 AM Narrative 07/03/2025 2:31 PM CDT [facility] [address] [place], [place] [address] [place] [address] [address] [place], [place] [address] EXAMINATION: Renal ultrasound. HISTORY: Back pain. Overactive bladder. Follow-up renal cyst. COMPARISON: 04/15/2025. TECHNIQUE: Grayscale and color Doppler images of the kidneys and urinary bladder were obtained. FINDINGS: The right kidney measures 10.1 cm in length and demonstrates normal parenchymal echogenicity and cortical thickness. No right renal mass, stone or hydronephrosis identified. The left kidney measures 10.2 cm in length and demonstrates normal parenchymal echogenicity and cortical thickness. No left renal mass, stone or hydronephrosis identified. There is a left renal cyst measuring approximately 6.9 x 5.3 x 6.3 cm. This has a simple and benign appearance. The urinary bladder appears unremarkable. Bilateral ureteral jets are seen. Procedure Note Bryant Christian MD - 07/03/2025 [place] [address] EXAMINATION: Renal ultrasound. HISTORY: Back pain. Overactive bladder. Follow-up renal cyst. COMPARISON: 04/15/2025. TECHNIQUE: Grayscale and color Doppler images of the kidneys and urinarybladder were obtained. FINDINGS: The right kidney measures 10.1 cm in length and demonstrates normalparenchymal echogenicity and cortical thickness. No right renal mass,stone or hydronephrosis identified. The left kidney measures 10.2 cm in length and demonstrates normalparenchymal echogenicity and cortical thickness. No left renal mass, stoneor hydronephrosis identified. There is a left renal cyst measuringapproximately 6.9 x 5.3 x 6.3 cm. This has a simple and benignappearance. The urinary bladder appears unremarkable. Bilateral ureteral jets areseen. IMPRESSION: 1. There is a simple benign-appearing left renal cyst. This requires nofurther workup or follow-up. 2. Otherwise, normal sonographic appearance of the kidneys and urinarybladder. Preliminary: Gracie Camara MD07/03/2025 10:16 AM The attending radiologist has reviewed the image(s) and agrees with thecontent of this report. Referred By: SRIRAJ T KANUNGO Interpreted By: Gracie Camara MD, 07/03/2025 10:13 AM us Nina Daily MD ULTRASOUND Final Result from Last 3 Months Insurance MEDICARE [facility] Care Teams Coat Operator Insulator Relationship Specialty Start Date End Date Dirk Solis MD [address] [facility] [address] [place] [address] PCP - General 04/14/25
--- OUTSIDE RECORDS SUMMARY | 2025-07-29 11:27 | XMS_ITS | Clinical Summary ---
Author Organization [employer] [facility] Address [address] [place] [address] Care Team Providers Care Sewer Head Name Role Phone Dirk Solis MD Primary [...] supper. Active fluticasone propionate (FLONASE) 50 mcg/spray [place], Suspension nasal inhaler Administer 2 Sprays in [...] 04/10/20 20 Active influenza virus tri-split (FLUZONE 2455-3612 IM) Fluzone [id number] 45 mcg (15 mcg x 3)/0.5 mL [...] Encounters Date Type Department Care Team Description 07/22/2025 External Device Data STL ABSTRACTION Provider, Abstract 07/01/2025 External Device Data STL ABSTRACTION Provider, Abstract 06/17/2025 External Device Data STL ABSTRACTION Provider, Abstract 06/10/2025 External Device Data STL ABSTRACTION Provider, Abstract 06/04/2025 External Device Data STL ABSTRACTION Provider, Abstract 05/14/2025 External Device Data STL ABSTRACTION Provider, Abstract 05/13/2025 External Device Data STL ABSTRACTION Provider, Abstract 04/30/2025 Orders Only [facility] Oncology and Hematology [place] [address] [facility] [address] [address] Max Moody MD from Last [...] st Contact Info) Description 09/19/2025 11:15 AM RESEARCH AND DEVELOPMENT RESEARCHER Office Visit [facility] Oncology and Hematology [facility] [address] [facility] [address] [place] [address] Max Moody MD [address] [facility] [address] [place] [address] Health Maintenance Due Date Last Done Comments DIABETES ANNUAL FOOT EXAM 1981 DIABETES MICROALBUMIN ANNUAL SCREEN 1981 LDL CHOLESTEROL ANNUAL 1981 Traditional Medicare (ACO) A nnual Wellness Visit 1982 HPV/Cotest (21-29) 1984 CERVICAL CANCER SCREENING 1993 [...] EXAM 02/10/2024 02/09/2023 Preventative Visit- Commercial 10/30/2024 INFLUENZA VACCINE (#1) 2025 2, 08/11/2020, 08/05/2019, [...] Months Insurance MEDICARE PART A AND B [facility] CHOICE [id number] Care Teams Sewer Head Relationship Specialty Start Date End Date Dirk Solis MD PCP - General Internal Medicine 04/14/20
[2025-07-29 16:49] LABS: Immunoglobulin A 78 mg/dL (70-400); Immunoglobulin G 647 mg/dL (700-1600); Immunoglobulin M 76 mg/dL (40-230)
== END 2025-07-29 10:41 | disposition home or self-care (01) ==
PROVIDERS: PCP Internal Medicine; Visit Provider Internal Medicine Hematology & Oncology
DX: D80.9 Immunodeficiency with predominantly antibody defects, unspecified (principal)
CPT/HCPCS: 36415; 82784; 85027

== ENCOUNTER 2025-08-13 20:29 | Emergency (ER) | payer OTHER, MEDICARE, SELFPAY ==
--- OUTSIDE RECORDS SUMMARY | 2018-11-08 12:30 | XMS_ITS | Continuity of Care Document ---
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 Name Role Phone Gerry Mclaughlin DPT Unavailable Unavailabl e Procedures Procedure Date PT Re-evaluation Therapeutic Exercise Neuromuscular Re-Ed Manual Therapy Therapeutic Exercise Neuromuscular Re-Ed Manual Therapy Therapeutic Exercise Neuromuscular Re-Ed Manual Therapy Hot or Cold Pack Therapeutic Exercise Therapeutic Activities Neuromuscular Re-Ed Manual Therapy Therapeutic Exercise Therapeutic Activities Neuromuscular Re-Ed Manual Therapy Therapeutic Exercise Therapeutic Activities Neuromuscular Re-Ed Manual Therapy Hot or Cold Pack Therapeutic Exercise Therapeutic Activities Neuromuscular Re-Ed Manual Therapy Therapeutic Exercise Therapeutic Activities Neuromuscular Re-Ed Manual Therapy Hot or Cold Pack Therapeutic Exercise Therapeutic Activities Neuromuscular Re-Ed Manual Therapy Hot or Cold Pack Therapeutic Exercise Therapeutic Activities Neuromuscular Re-Ed Manual Therapy Hot or Cold Pack Ultrasound Therapeutic Exercise Neuromuscular Re-Ed Manual Therapy Therapeutic Exercise Therapeutic Activities Neuromuscular Re-Ed Manual Therapy Hot or Cold Pack Ultrasound Therapeutic Exercise Therapeutic Activities Neuromuscular Re-Ed Manual Therapy Hot or Cold Pack Ultrasound Therapeutic Exercise Therapeutic Activities Neuromuscular Re-Ed Manual Therapy Hot or Cold Pack Ultrasound Therapeutic Exercise Therapeutic Activities Neuromuscular Re-Ed Manual Therapy Hot or Cold Pack PT Evaluation Low Complexity Therapeutic Exercise Manual Therapy Advance Directives Directive Yes / No Effective Date File Name No Information Encounters Encounter Description Practice Location Reason(s) For Visit Diagnoses Date Provider Providers Copied on Encounter [facility], [place], [id number], tel:[phone] [place] Unspecified abnormalities of gait and mobilityPain in right footStiffness of right ankle, not elsewhere classifiedOther specified disorders of musclePlantar fascial fibromatosis 9 [facility] [address] [place], [address], [place]. tel:[phone] [facility], [place], [place], [id number], tel:[phone] [place] Unspecified abnormalities of gait and mobilityPain in right footStiffness of right ankle, not elsewhere classifiedOther specified disorders of musclePlantar fascial fibromatosis 9 [facility] [address], [place], [address], [place]. tel: [phone] [facility], [place], [place], [address], [place] tel:[phone] [place] Unspecified abnormalities of gait and mobilityPain in right footStiffness of right ankle, not elsewhere classifiedOther specified disorders of musclePlantar fascial fibromatosis 9 Lissette Garrett. [address], [place], [address], [place]. tel: [phone] [facility], [place], [place], [id number], [place] tel:[phone] [place] Unspecified abnormalities of gait and mobilityPain in right footStiffness of right ankle, not elsewhere classifiedOther specified disorders of musclePlantar fascial fibromatosis 8 Lissette Garrett. [address] [place], [address], [place]. tel: [phone] [facility], [place], [place], [address], [place] tel:[phone] [place] Unspecified abnormalities of gait and mobilityPain in right footStiffness of right ankle, not elsewhere classifiedOther specified disorders of musclePlantar fascial fibromatosis 8 Lissette Garrett. [address], [place], [address], [place]. tel: [phone] [facility], [place], [place], [address], [place] tel:[phone] [place] Unspecified abnormalities of gait and mobilityPain in right footStiffness of right ankle, not elsewhere classifiedOther specified disorders of musclePlantar fascial fibromatosis 8 Lissette Castillory. [address], [place], [address], [place]. tel: [phone] [facility], [place], [place], [address], [place] tel:[phone] [place] Unspecified abnormalities of gait and mobilityPain in right footStiffness of right ankle, not elsewhere classifiedOther specified disorders of musclePlantar fascial fibromatosis 0 8 Lissette Garrett. [address] [place], [address], [place]. tel: [phone] [facility], [place], [place], [address], [place] tel:[phone] [place] Unspecified abnormalities of gait and mobilityPain in right footStiffness of right ankle, not elsewhere classifiedOther specified disorders of musclePlantar fascial fibromatosis 8 Lissette Castillory. [address] [facility] [place], [address], [place]. tel: [phone] [facility], [place], [place], [address], [place] tel:[phone] [place] Unspecified abnormalities of gait and mobilityPain in right footStiffness of right ankle, not elsewhere classifiedOther specified disorders of musclePlantar fascial fibromatosis 8 Lissette Castillory. [address] [place], [address], [place]. tel: [phone] [facility], [place], [place], [address], [place] tel:[phone] [place] Unspecified abnormalities of gait and mobilityPain in right footStiffness of right ankle, not elsewhere classifiedOther specified disorders of musclePlantar fascial fibromatosis 8 [facility] Gerry. [address] [place], [address], [place]. tel: [phone] [facility], [place], [place], [address], [place] tel:[phone] [place] Pain in right footStiffness of right ankle, not elsewhere classifiedOther specified disorders of muscleUnspecifie d abnormalities of gait and mobilityPlantar fascial fibromatosis 8 Lissette Garrett. [address] [place], [address], [place]. tel: [phone] [facility], [place], [place], [address], [place] tel:[phone] [place] Pain in right footStiffness of right ankle, not elsewhere classifiedOther specified disorders of muscleUnspecifie d abnormalities of gait and mobilityPlantar fascial fibromatosis 8 Lissette Garrett. [address] [place], [address], [place]. tel: [phone] [facility], [place], [place], [address], [place] tel:[phone] [place] Pain in right footStiffness of right ankle, not elsewhere classifiedOther specified disorders of muscleUnspecifie d abnormalities of gait and mobilityPlantar fascial fibromatosis 8 Lissette Garrett. [address] [facility] [place], [address], [place]. tel: [phone] [facility], [place], [place], [address], [place] tel:[phone] [place] Pain in right footStiffness of right ankle, not elsewhere classifiedOther specified disorders of muscleUnspecifie d abnormalities of gait and mobilityPlantar fascial fibromatosis 8 [facility]. [address] [facility], [address], [place], [facility], . tel: [phone] [facility], [place], [place], [address], [place] tel:[phone] [place] Pain in right footStiffness of right ankle, not elsewhere classifiedOther specified disorders of muscleUnspecifie d abnormalities of gait and mobilityPlantar fascial fibromatosis 8 Lissette Garrett. [address] [place], [address], [place]. tel:[phone] [facility], [address], [place], [place], [address], [place] tel:[phone] [place] Pain in right footStiffness of right ankle, not elsewhere classifiedOther specified disorders of muscleUnspecifie d abnormalities of gait and mobilityPlantar fascial fibromatosis 201 8 Lissette Garrett. [address] [place], [address], [place]. tel:[phone] Family History Family Member Type Diagnosis Age At Onset No Information Payers Payer name Insurance type Covered constitution party ID Authorrishabha nikia(s) [id number] [facility] [id number] Social History Type Description Quantity Date Captured Comments Sex Female Smoking Status No Information Chief Complaint And Reason For Visit No Information Reason For Referral Reason For Referral No Information History Of Present Illness Encounter Date Complaint History Of Prese nt Illness No Information Functional Status Date Functional Assessmen t No Information Instructions Date Instruction Additional Infor mation No Information Assessments Type Assessment Date No Information Patient Care Teams Name Effective Dates (start - stop) Status Members No Information
--- OUTSIDE RECORDS SUMMARY | 2024-09-14 16:00 | XMS_ITS ---
Author Organization [facility] Address [address] [place] [address] Care Team Providers Care Territory Manager Name Role Phone Walker Cordelia Primary Care Provider [phone] Migration, Provider Unavailable Unavailable Allergies Allergen (clinical drug ingredient) Drug/Non Drug Allergy documented on EMR Reaction Allergy Type Onset Date Status codeine Codeine Unknown Drug Allergy Active sulfadiazine sulfADIAZINE Unknown Drug Allergy A ctive fentanyl fentaNYL Unknown Drug Allergy Active amoxicillin Amoxicillin Unknown Drug Allergy Act shirley amitriptyline Amitriptyline HCl Unknown Drug Allergy Active REASON FOR VISIT [facility] Encounter Medications Medication SIG (Take, Route, Frequency, Duration) Notes Start Date End Date Status predniSONE 2.5 MG 1 tab(s) orally once a day; Duration: 30 day(s) only for flares 06/10/2024 Active Liothyronine Sodium 5 MCG 1 tab(s) orally once a day; Duration: 90 days 08/26/2024 Active Mounjaro 12.5 MG/0.5ML as directed subcutaneously once a week Active Estradiol 0.05 MG/24HR 1 PATCH transdermally 2 times a week; Duration: 90 days 08/26/2024 Active Vitamin E 180 MG 1 CAP(S) ORALLY ONCE A DAY *Please review and pick correct strength-formula tion from [facility] options. If intended option is not shown, discontinue and re-order from Quick Search* Active Albuterol Sulfate HFA 108 (90 Base) MCG/ACT 2 puff(s) inhaled every 6 hours 06/10/2024 Active Tavaborole 5 % 1 shelbie applied topically once a day; Duration: 48 week(s) 06/10/2024 Active SUMAtriptan Succinate 25 MG 1 tab(s) orally once 06/10/2024 Active Mupirocin 2 % 1 shelbie applied topically 3 times a day; Duration: 90 days 06/10/2024 Active Cyanocobalamin 1000 MCG/ML inject 1000 mcg subcutaneously once weekly; Duration: 90 days 06/10/2024 Active busPIRone HCl 5 MG 1 tab(s) orally 2 times a day; Duration: 30 day(s) 06/10/2024 Active Fluticasone-Salmeterol 500 MCG-50 MCG 1 INH INHALED 2 TIMES A DAY; Duration: 30 DAY(S) *Please review and pick correct strength-formula tion from GIVTED options. If intended option is not shown, discontinue and re-order from Quick Search* 06/10/2024 Active D3 50 MCG 1 CAP(S) ORALLY ONCE A DAY; Duration: 30 DAY(S) *Please review and pick correct strength-formula tion from GIVTED options. If intended option is not shown, discontinue and re-order from Quick Search* 06/10/2024 Active Arnuity Ellipta FUROATE 50 MCG DIRECTED INHALED EVERY 24 HOURS *Please review and pick correct strength-formula tion from GIVTED options. If intended option is not shown, discontinue and re-order from Quick Search* 06/10/2024 Active Ondansetron HCl 4 MG 1 tab(s) orally every 8 hours twice daily if needed after infusions for IGG 06/10/2024 Active Montelukast Sodium 10 MG 1 tab(s) orally once a day; Duration: 30 day(s) 06/10/2024 Active Hydroxychloroquine Sulfate 200 MG 1 tab(s) orally once a day; Duration: 30 day(s) twice daily 06/10/2024 Active Leflunomide 20 MG 1 tab(s) orally once a day; Duration: 30 day(s) 06/10/2024 Active Spironolactone 50 MG 1 tab(s) orally; Duration: 30 day(s) 06/10/2024 Active Pravastatin Sodium 20 MG 1 tab(s) orally once a day; Duration: 30 day(s) 06/10/2024 Active Losartan Potassium 100 MG 1 tab(s) orally once a day; Duration: 30 day(s) 06/10/2024 Active Celecoxib 200 MG 1 cap(s) orally once a day; Duration: 30 day(s) two caps per day 06/10/2024 Active metFORMIN HCl ER (OSM) 500 MG 1 tab(s) orally once a day; Duration: 30 day(s) twice daily 06/10/2024 Active 24 HOUR ALLERGY RELIEF 10 MG 1 TAB(S) ORALLY ONCE A DAY 10 mg daily *Please review for potential replacement for e-prescription and drug interaction check* 06/10/2024 Active Omeprazole 40 MG 1 cap(s) orally once a day; Duration: 30 day(s) 06/10/2024 Active DILTIAZEM (EQV-CARDIZEM CD) 120 MG/24 HOURS 1 CAP(S) ORALLY ONCE A DAY; Duration: 30 DAY(S) *Please review for potential replacement for e-prescription and drug interaction check* 06/10/2024 Active Unithroid 75 MCG (0.075 MG) ; Duration: 90 DAYS *Please review and pick correct strength-formula tion from GIVTED options. If intended option is not shown, discontinue and re-order from Quick Search* Active DAPSONE TOPICAL 5% 1 SHELBIE APPLIED TOPICALLY 2 TIMES A DAY *Please review for potential replacement for e-prescription and drug interaction check* Active Gabapentin 100 MG 1 cap(s) orally 3 times a day Active Triamcinolone Acetonide 0.1% 1 SHELBIE ORALLY 2 TIMES A DAY (AFTER MEALS) *Please review and pick correct strength-formula tion from GIVTED options. If intended option is not shown, discontinue and re-order from Quick Search* Active Gamunex-C 10% DIRECTED INTRAVENOUSLY EVERY 4 WEEKS *Please review and pick correct strength-formula tion from GIVTED options. If intended option is not shown, discontinue and re-order from Quick Search* Active Encounters Encounter Location Date Provider Diagnosis [facility] [address] [place] [place] [address] 09/14/2024 Provider Migration Hypothyroidism, unspecified E03.9 and Menopausal and female climacteric states N95.1 Assessments Encounter Date Diagnosis (ICD Code) Assessment Notes Treatment Notes Treatment Clinical Notes Section Notes 09/14/2024 Hypothyroidism, unspecified (ICD-10 - E03.9) 09/14/2024 Menopausal and female climacteric states (ICD-10 - N95.1) Plan Of Treatment Medication Medication Name Sig Start Date Stop Date Notes Liothyronine Sodium 5 MCG 1 tab(s) orall y once a day; Duration: 90 days 08/26/2024 Estradiol 0.05 MG/24HR 1 PATCH transderm ally 2 times a week; Duration: 90 days 08/26/2024 Progress Notes * Ena EMhDOB: [birth year] (60 yo F)Acc No.[id number]:09/14/2024 Patient: Karen PARISI Provider: Salvador Flowers :1965 A ge:59 Y S ex:Female Date:09/14/2024 Address:[address] [place], [place] [id number] Pcp:Cordelia Cardoso Subjective: * Chief Complaints: * 1 . Multum To [facility] Conversion Encounter. * Medical History: * Medications: T aking Mounjaro(Tirzepatide) 12.5 MG/0.5ML Solution Auto-injector as directed subcutaneously once a week , Taking Vitamin E 180 MG CAPSULE 1 CAP(S) ORALLY ONCE A DAY , Notes to Pharmacist: *Please review and pick correct strength-formulation from [facility] options. If intended option is not shown, discontinue and re-order from Quick Search*, Taking Gamunex-C 10% SOLUTION DIRECTED INTRAVENOUSLY EVERY 4 WEEKS , Notes to Pharmacist: *Please review and pick correct strength-formulation from [facility] options. If intended option is not shown, discontinue and re-order from Quick Search*, Taking DAPSONE TOPICAL 5% GEL 1 SHELBIE APPLIED TOPICALLY 2 TIMES A DAY , Notes to Pharmacist: *Please review for potential replacement for e-prescription and drug interaction check*, Taking Triamcinolone Acetonide 0.1% PASTE 1 SHELBIE ORALLY 2 TIMES A DAY (AFTER MEALS) , Notes to Pharmacist: *Please review and pick correct strength-formulation from [facility] options. If intended option is not shown, discontinue and re-order from Quick Search*, Taking Gabapentin 100 MG Capsule 1 cap(s) orally 3 times a day , Taking Unithroid 75 MCG (0.075 MG) TABLET , Notes to Pharmacist: *Please review and pick correct strength-formulation from GIVTED options. If intended option is not shown, discontinue and re-order from Quick Search*, Taking DILTIAZEM (EQV-CARDIZEM CD) 120 MG/24 HOURS CAPSULE, EXTENDED RELEASE 1 CAP(S) ORALLY ONCE A DAY , Notes to Pharmacist: *Please review for potential replacement for e-prescription and drug interaction check*, Taking Celecoxib 200 MG Capsule 1 cap(s) orally once a day , Notes to Pharmacist: two caps per day, Taking Losartan Potassium 100 MG Tablet 1 tab(s) orally once a day , Taking 24 HOUR ALLERGY RELIEF 10 MG TABLET 1 TAB(S) ORALLY ONCE A DAY , Notes to Pharmacist: 10 mg daily *Please review for potential replacement for e-prescription and drug interaction check*, Taking metFORMIN HCl ER (OSM) 500 MG Tablet Extended Release 24 Hour 1 tab(s) orally once a day , Notes to Pharmacist: twice daily, Taking Omeprazole 40 MG Capsule Delayed Release 1 cap(s) orally once a day , Taking Leflunomide 20 MG Tablet 1 tab(s) orally once a day , Taking Hydroxychloroquine Sulfate 200 MG Tablet 1 tab(s) orally once a day , Notes to Pharmacist: twice daily, Taking Pravastatin Sodium 20 MG Tablet 1 tab(s) orally once a day , Taking Spironolactone 50 MG Tablet 1 tab(s) orally , Taking Montelukast Sodium 10 MG Tablet 1 tab(s) orally once a day , Taking busPIRone HCl 5 MG Tablet 1 tab(s) orally 2 times a day , Taking D3(Cholecalciferol) 50 MCG CAPSULE 1 CAP(S) ORALLY ONCE A DAY , Notes to Pharmacist: *Please review and pick correct strength-formulation from GIVTED options. If intended option is not shown, discontinue and re-order from Quick Search*, Taking Fluticasone-Salmeterol 500 MCG-50 MCG POWDER 1 INH INHALED 2 TIMES A DAY , Notes to Pharmacist: *Please review and pick correct strength-formulation from GIVTED options. If intended option is not shown, discontinue and re-order from Quick Search*, Taking Arnuity Ellipta FUROATE 50 MCG POWDER DIRECTED INHALED EVERY 24 HOURS , Notes to Pharmacist: *Please review and pick correct strength-formulation from GIVTED options. If intended option is not shown, discontinue and re-order from Quick Search*, Taking Ondansetron HCl 4 MG Tablet 1 tab(s) orally every 8 hours , Notes to Pharmacist: twice daily if needed after infusions for IGG, Taking Albuterol Sulfate HFA 108 (90 Base) MCG/ACT Aerosol Solution 2 puff(s) inhaled every 6 hours , Taking SUMAtriptan Succinate 25 MG Tablet 1 tab(s) orally once , Taking Tavaborole 5 % Solution 1 shelbie applied topically once a day , Taking Cyanocobalamin 1000 MCG/ML Solution inject 1000 mcg subcutaneously once weekly , Taking Mupirocin 2 % Ointment 1 shelbie applied topically 3 times a day , Taking predniSONE 2.5 MG Tablet 1 tab(s) orally once a day , Notes to Pharmacist: only for flares * Allergies: A moxicillin, fentaNYL, Codeine, Amitriptyline HCl, sulfADIAZINE. Objective: * Vitals: Assessment: * Assessment: 1. H ypothyroidism, unspecified - E03.9 2 . M enopausal and female climacteric states - N95.1 Plan: * Treatment: 2. M enopausal and female climacteric states Start Estradiol Patch Twice Weekly, 0.05 MG/24HR, 1 PATCH, transdermally, 2 times a week, 90 days, 25, Refills 1. * Billing Information: * Visit Code: * Procedure Codes: * Electronic signature of Prov ider Migration on 08/14/2025 at 02:24 AM CDT Sign off status: Pending * Provider: Salvador cortez Migration Date: 11/14/2023 Generated for Latisha kerns/Julienne/Rick on: 02:24 AM CDT
--- OUTSIDE RECORDS SUMMARY | 2025-03-25 05:00 | XMS_ITS ---
Author Organization [facility] Address [address] [place] [address] Care Team Providers Care Tower Truck Driver Name Role Phone Cordelia Cardoso Primary Care Provider REASON FOR VISIT 4 month f/u kayce Encounters Encounter Location Date Provider Diagnosis [facility], [facility] - Cordelia Cardoso [address] [place] [address] 03/25/2025 Cordelia Cardoso Plan Of Treatment No Information Progress Notes * Ena EMhDOB: [birth year] (60 yo F)Acc No.[id number]:03/25/2025 Progress Notes Patient: Karen PARISI Provider: Anna Cardoso MD :1965 A ge:60 Y S ex:Female Date:03/25/2025 Address:[address] [place], [place] [phone] Subjective: * Chief Complaints: * 1 . 4 month f/u kayce. * Medical History: Objective: * Vitals: Assessment: Plan: * Treatment: * Billing Information: * Visit Code: * Procedure Codes: * Electronic signature of Tobin Cardoso MD on 08/14/2025 at 02:23 AM CDT Sign off status: Pending * Provider: Anna Cardoso MD Date: 0 03/25/2025 Generated for Latisha kerns/Julienne/eTransmitting on: 1 02:23 AM CDT
--- OUTSIDE RECORDS SUMMARY | 2025-06-20 08:00 | XMS_ITS ---
Author Organization [facility] Address [address] [place], [place] [address] Care Team Providers Care Investment Director Name Role Phone Cordelia Cardoso Primary Care Provider REASON FOR VISIT 3 month f/u Encounters Encounter Location Date Provider Diagnosis [facility]MO Dr. Cardoso [address] [place] [phone] 06/20/2025 Cordelia Cardoso Plan Of Treatment Next Appt Details Provider Name:Cordelia Cardoso, 09:40:00 AM, [address] [place] [address], [phone], Progress Notes * Ena EMhDOB: [birth year] (60 yo F)Acc No.[id number]:06/20/2025 Progress Notes Patient: Karen Harrison Provider: Anna Cardoso MD :1965 A ge:60 Y S ex:Female Date:06/20/2025 Address:[address] [place], [place] [id number] Subjective: * Chief Complaints: * 3 month f/u * Electronic signature of Tobin Cardoso MD on 08/14/2025 at 02:24 AM CDT Sign off status: Pending * Provider: Anna Cardoso MD Date: 0 06/20/2025 Generated for Latisha kerns/Julienne/eTransmitting on: 1 02:24 AM CDT
--- NOTE | ~2025-08-13 | CT_ITS ---
CT HEAD NON-CONTRAST Clinical History: migraine x5d, N/V Comparison: None Technique: Unenhanced axial images skull base to vertex Coronal, sagittal reformats CT images acquired with automatic exposure control for dose reduction DLP: 605 mGy-cm Findings: Sulci, ventricles: Unremarkable. No intracerebral hemorrhage. No evidence acute territorial infarct. No mass effect, midline shift. Bony calvarium intact. Visualized paranasal sinuses: Clear. Mastoid air cells: Clear. IMPRESSION: 1. No acute intracranial findings. Reviewed, dictated and finalized at location R.
[2025-08-13 20:32] VITALS: BP 152/88; PULSE 86; RESP 21; TEMP 37.1; O2SAT 99
[2025-08-14] VITALS (10 sets, daily range): BP systolic 148–200; BP diastolic 83–101; O2SAT 94–100
--- OUTSIDE RECORDS SUMMARY | 2025-08-14 02:23 | XMS_ITS | Clinical Summary ---
Author Organization [employer] Plans [facility] Address [address] [place] [address] Care Team Providers Care Sensitizer Name Role Phone Dirk Solis MD Primary [...] Blood-Glucose Meter (True Metrix Glucose Meter) by [facility].(Non-Drug; Combo Route) route. Active blood sugar diagnostic (True Metrix Glucose Test Strip) Strip 1 Strip by See Admin Instructions route. Active lancets 1 Each by Misc.(Non-Drug; Combo Route) route. Active pravastatin (PRAVACHOL) 20 mg tablet Take 20 mg by mouth daily with supper. Active fluticasone propionate (FLONASE) 50 mcg/spray [place], Suspension nasal inhaler Administer 2 Sprays in [...] 04/10/20 20 Active influenza virus tri-split (FLUZONE 6581-3956 IM) Fluzone 4495-8464 45 mcg (15 mcg x 3)/0.5 mL [...] Encounters Date Type Department Care Team Description 08/05/2025 Abstract [facility] [address] [place] [address] Max Moody MD 07/31/2025 Orders Only [facility] [address] [place] [address] Max Moody MD 07/22/2025 External Device Data STL ABSTRACTION Provider, [...] st Contact Info) Description 09/19/2025 11:15 AM GLA[employer] SUPERINTENDENT Office Visit [facility] [address] [facility] [address] [place] [address] Max Moody MD [address] [facility] [address] [place] [address] Health Maintenance Due Date Last [...] EXAM 02/10/2024 02/09/2023 INFLUENZA VACCINE (#1) 2025 2, 08/11/2020, 08/05/2019, Additional history exists BREAST CANCER SCREENING 07/29/2025 07/29/2024 DIABETES HBA1C Q 6 MONTHS 08/06/20252024, 11/02/2024, 05/20/2024, Additional history exists DTAP/TDAP/TD VACCINES (2 - T d or Tdap) 06/01/2027 06/01/2017 Procedures Procedure Name Priority Date/Time Associated Diagnosis Comments IMMUNOGLOBULINS IGG IGA IGM Routine 07/02 12:49 PM CDT CBC WITH AUTODIFFERENTIAL Routine 2024 12:24 PM CDT from Last 3 Months Results * IMMUNOGLOBULINS IGG IGA IGM (07/29/2025 12:49 PM CDT) Blood Max Modoy MD CHEMISTRY ORDERABLES Final Resu lt * CBC WITH AUTODIFFERENTIAL (07/29/2025 12:24 PM CDT) Blood us Max Moody MD HEMATOLOGY ORDERABLES Final Res ult from Last 3 Months Insurance MEDICARE PART A AND B [facility] CHOICE [id number] Care Teams Sensitizer Relationship Specialty Start Date End Date Dirk Solis MD PCP - General Internal Medicine 04/14/20
--- OUTSIDE RECORDS SUMMARY | 2025-08-14 02:23 | XMS_ITS | Patient Health Record ---
Author Organization [facility] Address [address] [place], [place] [address] Care Team Providers Care Microsoft Bi Consultant Name Role Phone Cordelia Cardoso Primary Care Provider Migration, Provider Unavailable Unavailable Allergies Allergen (clinical drug ingredient) Drug/Non Drug Allergy documented on EMR Reaction Allergy Type Onset Date Status amitriptyline Amitriptyline HCl Unknown Drug Allergy Active amoxicillin Amoxicillin Unknown Drug Allergy Act shirley fentanyl fentaNYL Unknown Drug Allergy Active sulfadiazine sulfADIAZINE Unknown Drug Allergy A ctive codeine Codeine Unknown Drug Allergy Active Results Component Value Reference Range Flag Notes .COMPREHENSIVE METABOLIC HARRIS EL ([id number]) CMP Reviewed date:08/07/2025 08:13:34 AM Interpretation: Performing Lab:[facility], [facility] [facility] [address] Administration , [address] [facility] Notes/Report: FASTING:YES FASTING: YES GLUCOSE 74 65-99 mg/dL N Fasting reference interval UREA NITROGEN (BUN) 10 7-25 mg/dL N CREATININE 0.95 0.50-1.05 mg/dL N EGFR 68 > OR = 60 mL/min/1.73m2 N BUN/CREATININE RATIO SEE NOTE: 6-22 (calc) Not Reported: BUN and Creatinine are within reference range. SODIUM 142 135-146 mmol/L N POTASSIUM 4.1 3.5-5.3 mmol/L N CHLORIDE 105 98-110 mmol/L N CARBON DIOXIDE 29 20-32 mmol/L N CALCIUM 9.0 8.6-10.4 mg/dL N PROTEIN, TOTAL 6.1 6.1-8.1 g/dL N ALBUMIN 4.0 3.6-5.1 g/dL N GLOBULIN 2.1 1.9-3.7 g/dL (calc) N ALBUMIN/GLOBULIN RATIO 1.9 1.0-2.5 (calc) N BILIRUBIN, TOTAL 0.9 0.2-1.2 mg/dL N ALKALINE PHOSPHATASE 78 37-153 U/L N AST 12 10-35 U/L N ALT 8 6-29 U/L N .COMPREHENSIVE METABOLIC HARRIS EL ([id number]) CMP Reviewed date:07/08/2025 09:37:50 AM Interpretation: Performing Lab:[id number] Annie Martin MD Notes/Report: GLUCOSE 84 65-99 mg/dL N Fasting reference interval UREA NITROGEN (BUN) 13 7-25 mg/dL N CREATININE 0.92 0.50-1.05 mg/dL N EGFR 70 > OR = 60 mL/min/1.73m2 N BUN/CREATININE RATIO SEE NOTE: 6-22 (calc) Not Reported: BUN and Creatinine are within reference range. SODIUM 141 135-146 mmol/L N POTASSIUM 4.1 3.5-5.3 mmol/L N CHLORIDE 104 98-110 mmol/L N CARBON DIOXIDE 30 20-32 mmol/L N CALCIUM 9.2 8.6-10.4 mg/dL N PROTEIN, TOTAL 6.1 6.1-8.1 g/dL N ALBUMIN 4.1 3.6-5.1 g/dL N GLOBULIN 2.0 1.9-3.7 g/dL (calc) N ALBUMIN/GLOBULIN RATIO 2.1 1.0-2.5 (calc) N BILIRUBIN, TOTAL 0.5 0.2-1.2 mg/dL N ALKALINE PHOSPHATASE 79 37-153 U/L N AST 13 10-35 U/L N ALT 9 6-29 U/L N T4, FREE (866) Reviewed date:07/08/2025 09:37:50 AM Interpretation: Performing Lab:[facility] Annie Martin MD Notes/Report: T4, FREE 1.2 0.8-1.8 ng/dL N TSH (899) Reviewed date:07/08/2025 09:37:50 AM Interpretation: Performing Lab:[facility] [place] Annie Martin MD Notes/Report: TSH 2.61 0.40-4.50 mIU/L N CORTISOL, FREE, 24 HOUR URIN E ([id number]) Reviewed date:2025 05:22:53 PM Interpretation: Performing Lab:[facility], [facility],[address] [phone] Carol Liang MD,PhD,RITESH Notes/Report: COLLECTION KIT GIVEN TO PATIENT. PATIENT ADVISED TO RETURN. URINE VOLUME: 2000/24 TOTAL VOLUME 2000 CORTISOL, FREE, URINE 21.4 4.0-50.0 mcg/24 h CORTISOL, FREE, URINE 16.4 Reference Range: ADULTS: 3.1-42.3 CREATININE, URINE 1.31 0.50-2.15 g/24 h This test was developed and its analytical performance characteristics have been determined by [facility] [facility] It has not been cleared or approved by the FDA. This assay has been validated pursuant to the CLIA regulations and is used for clinical purposes. CORTISOL, LC/MS, SALIVA, 2 S AMPLES ([id number]) Reviewed date:2025 05:22:53 PM Interpretation: Performing Lab:[facility], [facility],[address] [phone] Carol Liang MD,PhD,RITESH Notes/Report: SPLIT 03/04/2025 FROM [id number] DRAW DATE 1 03/04/2025 DRAW TIME 1 11:00 PM CORTISOL, SALIVA SAMPLE 1 0.04 8-10 AM: 0.04-0.56 mcg/dL noon-2 PM: < OR = 0.21 mcg/dL 4-6 PM: < OR = 0.15 mcg/dL 10 PM-1 AM: < OR = 0.09 mcg/dL This test was developed and its analytical performance characteristics have been determined by [facility] [facility] ([facility] It has not been cleared or approved by the FDA. This assay has been validated pursuant to the CLIA regulations and is used for clinical purposes. DRAW DATE 2 03/05/2025 DRAW TIME 2 11:00 PM CORTISOL, SALIVA SAMPLE 2 0.05 This test was developed and its analytical performance characteristics have been determined by [facility] [facility] It has not been cleared or approved by the FDA. This assay has been validated pursuant to the CLIA regulations and is used for clinical purposes. 8-10 AM: 0.04-0.56 mcg/dL noon-2 PM: < OR = 0.21 mcg/dL 4-6 PM: < OR = 0.15 mcg/dL 10 PM-1 AM: < OR = 0.09 mcg/dL Reason For Referral Reason left renal cyst 5.5 cm simple but a 1.4 cm exophytic renal cyst needs monitoring Diagnosis 1 Renal cyst, left (N2 8.1) Referral Organization [facility] Dr. Cardoso Referring Provider First Name Cordelia Referring Provider Last Name Walker Referring Provider Speciality Endocrinol leland Referred Provider Specialty Nephrology Referral Priority Routine Medications Medication SIG (Take, Route, Frequency, Duration) Notes Start Date End Date Status Pravastatin Sodium 20 MG Tablet 1 tab(s) orally once a day; Duration: 30 day(s) taking 40 mg daily 06/10/2024 Active Hydroxychloroquine Sulfate 200 MG Tablet 1 tab(s) orally once a day; Duration: 30 day(s) twice daily 06/10/2024 Active Leflunomide 20 MG Tablet 1 tab(s) orally once a day; Duration: 30 day(s) 06/10/2024 Active Omeprazole 40 MG Capsule Delayed Release 1 cap(s) orally once a day; Duration: 30 day(s) 06/10/2024 Active D3 50 MCG CAPSULE 1 CAP(S) ORALLY ONCE A DAY; Duration: 30 DAY(S) *Please review and pick correct strength-formula tion from [employer] options. If intended option is not shown, discontinue and re-order from Quick Search* *Pick strength-form from [employer] for eRX* 06/10/2024 Active busPIRone HCl 5 MG Tablet 1 tab(s) orally 2 times a day; Duration: 30 day(s) 06/10/2024 Active Montelukast Sodium 10 MG Tablet 1 tab(s) orally once a day; Duration: 30 day(s) 06/10/2024 Active Spironolactone 50 MG Tablet 1 tab(s) orally; Duration: 30 day(s) 06/10/2024 Active Vitamin E 180 MG CAPSULE 1 CAP(S) ORALLY ONCE A DAY *Please review and pick correct strength-formula tion from [employer] options. If intended option is not shown, discontinue and re-order from Quick Search* *Pick strength-form from [employer] for eRX* Active Liothyronine Sodium 5 MCG Tablet 1 tab(s) orally once a day; Duration: 90 days 08/26/2024 Active Korlym 300 MG Tablet 1 tablet with a meal Orally Once a day Active Arnuity Ellipta FUROATE 50 MCG POWDER DIRECTED INHALED EVERY 24 HOURS *Please review and pick correct strength-formula tion from [employer] options. If intended option is not shown, discontinue and re-order from Quick Search* *Pick strength-form from [employer] for eRX* 06/10/2024 Active Ondansetron 4 MG Tablet Disintegrating 1 tablet on the tongue and allow to dissolve Orally twice daily; Duration: 90 days 07/11/2025 Active Fluticasone-Salmeterol 500 MCG-50 MCG POWDER 1 INH INHALED 2 TIMES A DAY; Duration: 30 DAY(S) *Please review and pick correct strength-formula tion from [employer] options. If intended option is not shown, discontinue and re-order from Quick Search* *Pick strength-form from [employer] for eRX* 06/10/2024 Active Ondansetron HCl 4 MG Tablet 1 tab(s) orally every 8 hours twice daily if needed after infusions for IGG 06/10/2024 Active Triamcinolone Acetonide 0.1% PASTE 1 WILLIAM ORALLY 2 TIMES A DAY (AFTER MEALS) *Please review and pick correct strength-formula tion from [employer] options. If intended option is not shown, discontinue and re-order from Quick Search* Active Mupirocin 2 % Ointment 1 william applied topically 3 times a day; Duration: 90 days 06/10/2024 Active dapsone topical 5% GEL 1 WILLIAM APPLIED TOPICALLY 2 TIMES A DAY *Please review for potential replacement for e-prescription and drug interaction check* *Reorder from [employer] for eRx and Interaction Alerts* Active Tavaborole 5 % Solution 1 william applied topically once a day; Duration: 48 week(s) 06/10/2024 Active Gamunex-C 10% SOLUTION DIRECTED INTRAVENOUSLY EVERY 4 WEEKS *Please review and pick correct strength-formula tion from [employer] options. If intended option is not shown, discontinue and re-order from Quick Search* *Pick strength-form from [employer] for eRX* Active SUMAtriptan Succinate 25 MG Tablet 1 tab(s) orally once 06/10/2024 Active Albuterol Sulfate HFA 108 (90 Base) MCG/ACT Aerosol Solution 2 puff(s) inhaled every 6 hours 06/10/2024 Active Celecoxib 200 MG Capsule 1 cap(s) orally once a day; Duration: 30 day(s) two caps per day 06/10/2024 Active Insulin Syringe 30G X 5/16 1 ML Miscellaneous USE TO INJECT B12 WEEKLY; Duration: 70 Active dilTIAZem HCl 120 MG/24 HOURS CAPSULE, EXTENDED RELEASE 1 CAP(S) ORALLY ONCE A DAY; Duration: 30 DAY(S) *Please review for potential replacement for e-prescription and drug interaction check* *Pick strength-form from [employer] for eRX* 06/10/2024 Active Mounjaro 15 MG/0.5ML Solution Auto-injector INJECT DIRECTED UNDER THE SKIN WEEKLY Active Unithroid 75 MCG (0.075 MG) TABLET ; Duration: 90 DAYS *Please review and pick correct strength-formula tion from [employer] options. If intended option is not shown, discontinue and re-order from Quick Search* *Pick strength-form from [employer] for eRX* Active Cyanocobalamin 1000 MCG/ML Solution INJECT 1 ML (1000 MCG) UNDER THE SKIN ONCE WEEKLY Active Gabapentin 100 MG Capsule 1 cap(s) orally 3 times a day Active predniSONE 2.5 MG Tablet 1 tab(s) orally once a day; Duration: 30 day(s) only for flares 06/10/2024 Active metFORMIN HCl ER (OSM) 500 MG Tablet Extended Release 24 Hour 1 tab(s) orally once a day; Duration: 30 day(s) twice daily 06/10/2024 Active 24 Hour Allergy Relief 10 MG TABLET 1 TAB(S) ORALLY ONCE A DAY 10 mg daily *Please review for potential replacement for e-prescription and drug interaction check* *Reorder from [employer] for eRx and Interaction Alerts* 06/10/2024 Active Losartan Potassium 100 MG Tablet 1 tab(s) orally once a day; Duration: 30 day(s) 06/10/2024 Active Social History Social History Additional Details Category Social Info Options Details Migrated Social History Migrated Social History (Alcohol:):yes rarely (Recreational drug use:):no (Smoking:):no Section Notes: Non-Contributory Problems Problem Type SNOMED Code ICD Code Onset Dates Problem Status W/U Status Risk Notes Problem Hypothyroidism (82944582) Hypothyroidism, unspecified (E03.9) Active confirmed Problem Hyperglycemia due to type 2 diabetes mellitus (046581482962042) Type 2 diabetes mellitus with hyperglycemia (E11.65) Active confirmed Problem Disorder of pituitary gland (677531592) Disorder of pituitary gland, 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) Active confirmed Problem Disorder of adrenal gland (89643541) Disorder of adrenal gland, 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) Active confirmed Problem Vitamin D deficiency (48234604) Vitamin D deficiency, unspecified (E55.9) Active confirmed Problem Obesity (689002930) Obesity, unspecified (E66.9) Active confirmed Problem Menopause (547953928) Menopausal and female climacteric states (N95.1) Active confirmed Problem Dyslipidemia (718020742) Dyslipidemia (E78.5) Active confirmed Problem 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 Cardoso [address] [place] [address] 08/26/2024 Cordelia Cardoso Type 2 diabetes mellitus with hyperglycemia E11.65 ; Vitamin D deficiency, unspecified E55.9 ; Hyperlipidemia, unspecified E78.5 ; Hypothyroidism, unspecified E03.9 ; Menopausal and female climacteric states N95.1 ; Obesity, unspecified E66.9 and Dietary counseling and surveillance Z71.[address] Cardoso [address] [place] [phone] 11/25/2024 Cordelia Cardoso Type 2 diabetes mellitus with hyperglycemia E11.65 ; Hyperlipidemia, unspecified E78.5 ; Hypothyroidism, unspecified E03.9 ; Obesity, unspecified E66.9 and Dietary counseling and surveillance Z71.[address] Cardoso [address] [place] [phone] 03/21/2025 Cordelia Cardoso Type 2 diabetes mellitus with hyperglycemia E11.65 ; Hypothyroidism, unspecified E03.9 ; Dyslipidemia E78.5 ; Hyperlipidemia, unspecified E78.5 ; Obesity, unspecified E66.9 ; Hypercortisolism E24.9 ; Disorder of adrenal gland, unspecified E27.9 ; Disorder of pituitary gland, unspecified E23.7 and Dietary counseling and surveillance Z71.[address] Cardoso [address] [place] [phone] 04/28/2025 Cordelia Cardoso Type 2 diabetes mellitus with hyperglycemia E11.65 ; Hypothyroidism, unspecified E03.9 ; Obesity, unspecified E66.9 ; Hypercortisolism E24.9 and Renal cyst, left N28.[address] Cardoso [address] [place] [phone] 07/11/2025 Cordelia Cardoso Type 2 diabetes mellitus with hyperglycemia E11.65 ; Dyslipidemia E78.5 ; Obesity, unspecified E66.9 ; Hypothyroidism, unspecified E03.9 ; Dietary counseling and surveillance Z71.3 ; Nausea R11.0 and Hypercortisolism E24.[address] Cardoso [address] [place] [phone] 08/11/2025 Cordelia Cardoso Type 2 diabetes mellitus with hyperglycemia E11.65 ; Dyslipidemia E78.5 ; Hypothyroidism, unspecified E03.9 ; Hypercortisolism E24.9 and Dietary counseling and surveillance Z71.[address] [phone] 11/24/[address] Cardoso [address] [place] [phone] 11/27/2024 Cordelia Cardoso [address] [place] [phone] 02/13/2025 Cordelia RIZO [address] [phone] 04/28/2025 Cordelia Cardoso [address] [place] [phone] 06/13/2025 Cordelia Cardoso [address] [place] [phone] 06/19/2025 Cordelia Cardoso [address] [place] [phone] 07/02/2025 Cordelia Cardoso [address] [place] [phone] 07/11/2025 Cordelia RIZO [address] [phone] 08/11/2025 Cordelia Cardoso Assessments Encounter Date Diagnosis (ICD Code) Assessment Notes Treatment Notes Treatment Clinical Notes Section Notes 03/21/2025 Hypothyroidism, unspecified (ICD-10 - E03.9) 03/21/2025 Type 2 diabetes mellitus with hyperglycemia (ICD-10 - E11.65) 08/11/2025 Type 2 diabetes mellitus with hyperglycemia (ICD-10 - E11.65) 08/11/2025 Dyslipidemia (ICD-10 - E78.5) 11/25/2024 Type 2 diabetes mellitus with hyperglycemia (ICD-10 - E11.65) 08/26/2024 Type 2 diabetes mellitus with hyperglycemia (ICD-10 - E11.65) 08/26/2024 Vitamin D deficiency, unspecified (ICD-10 - E55.9) 07/11/2025 Type 2 diabetes mellitus with hyperglycemia (ICD-10 - E11.65) 04/28/2025 Hypothyroidism, unspecified (ICD-10 - E03.9) 04/28/2025 Type 2 diabetes mellitus with hyperglycemia (ICD-10 - E11.65) 07/11/2025 Dyslipidemia (ICD-10 - E78.5) 04/28/2025 Obesity, unspecified (ICD-10 - E66.9) 07/11/2025 Obesity, unspecified (ICD-10 - E66.9) 08/26/2024 Hyperlipidemia, unspecified (ICD9-CM - E78.5) 11/25/2024 Hyperlipidemia, unspecified (ICD9-CM - E78.5) 08/11/2025 Hypothyroidism, unspecified (ICD-10 - E03.9) 03/21/2025 Dyslipidemia (ICD-10 - E78.5) 03/21/2025 Hyperlipidemia, unspecified (ICD9-CM - E78.5) 08/26/2024 Hypothyroidism, unspecified (ICD-10 - E03.9) 09/14/2024 Hypothyroidism, unspecified (ICD-10 - E03.9) 08/11/2025 Hypercortisolism (ICD-10 - E24.9) 11/25/2024 Hypothyroidism, unspecified (ICD-10 - E03.9) 07/11/2025 Hypothyroidism, unspecified (ICD-10 - E03.9) 04/28/2025 Hypercortisolism (ICD-10 - E24.9) 07/11/2025 Dietary counseling and surveillance (ICD-10 - Z71.3) Spent 15 minutes preventative counseling patient on dietary recommendations and changes in setting of hyperglycemia- need to restrict refined sugars and processed foods and incorporate up to 150 minutes of moderate level activity weekly. 04/28/2025 Renal cyst, left (ICD-10 - N28.1) 08/26/2024 Menopausal and female climacteric states (ICD-10 - N95.1) 11/25/2024 Obesity, unspecified (ICD-10 - E66.9) 09/14/2024 Menopausal and female climacteric states (ICD-10 - N95.1) 03/21/2025 Obesity, unspecified (ICD-10 - E66.9) 03/21/2025 Hypercortisolism (ICD-10 - E24.9) 08/11/2025 Dietary counseling and surveillance (ICD-10 - Z71.3) Spent 15 minutes preventative counseling patient on dietary recommendations and changes in setting of hyperglycemia- need to restrict refined sugars and processed foods and incorporate up to 150 minutes of moderate level activity weekly. 11/25/2024 Dietary counseling and surveillance (ICD-10 - Z71.3) 08/26/2024 Obesity, unspecified (ICD-10 - E66.9) 07/11/2025 Nausea (ICD-10 - R11.0) 07/11/2025 Hypercortisolism (ICD-10 - E24.9) 08/26/2024 Dietary counseling and surveillance (ICD-10 - Z71.3) 03/21/2025 Disorder of adrenal gland, unspecified (ICD-10 - E27.9) 03/21/2025 Disorder of pituitary gland, unspecified (ICD-10 - E23.7) 03/21/2025 Dietary counseling and surveillance (ICD-10 - Z71.3) Spent 15 minutes preventative counseling patient on dietary recommendations and changes in setting of hyperglycemia- need to restrict refined sugars and processed foods and incorporate up to 150 minutes of moderate level activity weekly. 08/26/2024 Other Assessment and Plan: 1. Hypothyroidism- [...] and communicating with other health patient care provider, documenting clinical information in the electronic or [...] the possibility of port placement with a car wash attendant automatic, evaluating the risks and benefits.Explore the option [...] and communicating with other health patient care provider, documenting clinical information in the electronic or other health record, independently interpreting results and communicating results to the patient/family/caregiver and care coordinating patient plan. Patient alert and oriented x 4 and aware of discussion noted above and in agreeance to plan in management of type 2 DM/well controlled, hyperlipidemia, hypothyroidism, weight management/obesity. 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 Thyroid Disorder- Continue current thyroid medication regimen (specific medication and dosage not mentioned)- Educate patient on signs and symptoms of subacute thyroiditis- Advise patient to monitor for thyroid tenderness or swelling- Encourage continued healthy eating habits and sodium restriction- Follow up to reassess thyroid function and symptoms 3. Weight Management- Encourage continuation of current healthy eating habits- Discuss potential impact of Kassi's syndrome on weight management- Reassess weight management strategies after Kassi's syndrome evaluation is complete 4. Diabetes well controlled but on highest dose mounjaro 15 mg weekly and paient remains insulin resistant and not able to lose weight, DST positive- sending for localization imaging and discussed cortisol blockade management- consent signed for korlym initiation. Spent 25 minutes preparing to see the patient (ex review of tests/chart), obtaining and / or reviewing separately obtained history, performing a medically appropriate examination and/or evaluation, counseling and educating the patient/family/caregiver, ordering medications, tests, or procedures, referring and communicating with other health patient care provider, documenting clinical information in the electronic or other health record, independently interpreting results and communicating results to the patient/family/caregiver and care coordinating patient plan. Patient alert and oriented x 4 and aware of discussion noted above and in agreeance to plan in management of type 2 DM, hypercortisolism, obesity/weight management, concern for adrenal or pituitary pathology. 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 Renal Cysts- Refer to scarfing machine operator Dr. Barnes for evaluation and management of renal cysts- Order renal ultrasound for further assessment and comparison- Transmit relevant imaging and medical records to Dr. Barnes's office 3. Hypothyroidism- Continue Unithroid 75 mcg daily- Continue liothyronine 10 mcg in the afternoon 4. Type 2 Diabetes Mellitus- Continue Mounjaro 15 mg weekly- Continue metformin 500 mg once daily (patient reports taking it once daily instead of twice daily as prescribed)- Monitor weight and glycemic control 5. Hypertension- Continue current antihypertensive regimen- Advise patient to monitor blood pressure regularly and avoid caffeine before measurements- Continue spironolactone 50 mg daily (also for potassium retention) 6. Asthma- Continue fluticasone 25/50 inhaler, 1 puff twice daily (morning and night) 7. 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 Patient alert and oriented x 4 and aware of discussion noted above and in agreeance to plan in management of hypercortisolism, well controlled type 2 DM, obesity/weight management, hypothyroidism, and finding of left renal cyst. Due to the nature of telemedicine, the [...] were discussed and all questions were answered. 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 Hyperlipidemia- Continue pravastatin 40 mg daily- Continue Vascepa as prescribed by Dr. Betancourt- Encourage healthy dietary choices, including fruit and dark chocolate as alternatives to high-sugar foods 3. Hypothyroidism- Continue Unithroid (levothyroxine) 75 mcg daily- Continue liothyronine 5 mcg in the afternoon- No changes to current thyroid medication regimen 4. Diabetes mellitus- Continue Mounjaro (tirzepatide) 15 mg as prescribed- Continue metformin 500 mg once daily 5. Chronic obstructive pulmonary disease (COPD)- Continue Anoro Ellipta inhaler 250 mcg as prescribed Follow-up:- Comprehensive metabolic panel in 1 month to reassess potassium and kidney function- Clinic will follow up with insurance regarding Korlym approval Spent 25 minutes preparing to see the patient (ex review of tests/chart), obtaining and / or reviewing separately obtained history, performing a medically appropriate examination and/or evaluation, counseling and educating the patient/family/caregiver, ordering medications, tests, or procedures, referring and communicating with other health patient care provider, documenting clinical information in the electronic or other health record, independently interpreting results and communicating results to the patient/family/caregiver and care coordinating patient plan. Patient alert and oriented x 4 and aware of discussion noted above and in agreeance to plan in management of type 2 dM/controlled, hypercortisolism, obesity/weight management, dyslipidemia and hypothyroidism. 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 Hypercortisolism on Korlym therapyAssessment: Patient is currently on her second bottle of Korlym, approximately 2 months of treatment. While laboratory values including glucose (74), kidney function, and liver function appear stable and excellent, she continues to experience symptoms including intermittent chest palpitations, sleep disturbances, and nausea. The patient reports waking up with palpitations recently and ongoing sleep difficulties. She experiences nausea, particularly after meals, with one recent episode at a restaurant where she felt like vomiting but did not. Taste changes are affecting her appetite and food preferences. Clinical response may take up to 6 months to see full therapeutic benefits from Korlym therapy.Plan:- Continue Korlym, taking before bedtime at the same time daily as currently prescribed- Consider regular use of Zofran for nausea management rather than as-needed dosing- Follow-up in 6-8 weeks to reassess response to therapy- Plan laboratory work in 4 weeks including thyroid function and B12 levels Hypokalemia managementAssessment: Current potassium level is 4.0. Patient is on spironolactone 50mg which is providing appropriate potassium-sparing effect. Kidney function remains excellent, minimizing risk of over-diuresis.Plan:- Alternate potassium supplementation: 300mg every other day alternating with 600mg (if already took one dose today, take two tomorrow, then one Monday, then two, continuing to alternate)- Avoid taking 2 potassium supplements daily to prevent over-supplementation- Continue spironolactone 50mg Low protein levelsAssessment: Protein levels appear low, likely related to poor dietary protein intake. Patient reports not eating much protein and has difficulty finishing meals. Taste changes are affecting food preferences, particularly with eggs. Weight loss history without gastric surgery suggests dietary factors contributing to low protein intake.Plan:- Increase protein intake with goal of at least 80-90 grams daily- Encourage protein-rich foods despite taste changes HypertensionAssessment: Blood pressure elevated during visit, though patient had not taken her blood pressure medication today due to needing to eat before taking medications and avoiding medications on infusion days.Plan:- Continue current blood pressure medication regimen- Take medications with food as needed HypothyroidismAssessment: Patient continues on Unithroid but reports ongoing fatigue. Thyroid function monitoring needed to ensure adequate replacement therapy.Plan:- Continue Unithroid 75 mcg daily- Add thyroid function tests to next laboratory work in 4 weeks Spent 25 minutes preparing to see the patient (ex review of tests/chart), obtaining and / or reviewing separately obtained history, performing a medically appropriate examination and/or evaluation, counseling and educating the patient/family/caregiver, ordering medications, tests, or procedures, referring and communicating with other health patient care provider, documenting clinical information in the electronic or other health record, independently interpreting results and communicating results to the patient/family/caregiver and care coordinating patient plan. Patient alert and oriented x 4 and aware of discussion noted above and in agreeance to plan in management of hypothyroidism, well controlled type 2 DM, obesity/weight management and hypercortisolism. Plan Of Treatment Pending Test Test Name Order Date *CT ABDOMEN W/O CONTRAST [id number] *US RENAL [id number] 04/28/2025 *MRI BRAIN W/O CONTRAST [SELLATURSICA] 7 [id number] 03/21/2025 Next Appt Details Provider Name:Cordelia Cardoso, 09:40:00 AM, [address] [place] [address], [id number], Insurance Providers Payer Name Payer Address Payer Phone Subscriber Number Group Number Insured Name Patient Relationship to Insured Coverage Start Date Coverage End Date [facility] [address] [address] [place] [address] [id number] ManavEna aponteh Self - patient is the insured S Medicare part B [address] [address] [place] [address] [id number] Karen Em Self - patient is the insured Medical (General) History Medical History History ICD Code type 2 DM hypothyroidism IGG deficiency rheumatoid arthritis dyslipidemia vitamin D deficiency
--- OUTSIDE RECORDS SUMMARY | 2025-08-14 02:23 | XMS_ITS | Clinical Summary ---
Author Organization [facility] Address [address] [place] [id number] Care Team Providers Care Leader Writer Name Role Phone Dirk Solis MD Primary Care Provider Encounters Date Type Department Care Team Description 07/03/2025 9:10 AM CDT - 07/03/2025 11:59 PM CDT Hospital Encounter [facility] [address] Nina Daily MD Discharge Disposition: Home or [...] 10/10/2023, 12/24/2021, 05/27/2021, Additional history exists Influenza Adult (#1) 2025 09/04/2023, 08/23/2022, 11/02/2021, Additional history exists Pneumococcal Vaccine: 50+ Years (3 of 3 - PCV20 or PCV21) 08/11/2025 08/11/2020, 06/01/2017 DTaP, Tdap and Td Vaccines (2 - Td or Tdap) 06/01/2027 06/01/2017 RSV Immunization or 60+ Years (1 - 1-dose 75+ series) 2038 Zoster Vaccines Completed 12/28/2020, 10/29/2020 Hepatitis A Vaccines Aged Out No long er eligible based on patient's age to complete this topic Meningococcal B Vaccine Aged Out No l [...] 10:13 AM Narrative 07/03/2025 2:31 PM CDT [facility] [place] [address] [facility] [address] [place], [place] [address] EXAMINATION: Renal ultrasound. HISTORY: Back pain. Overactive [...] Procedure Note Bryant Christian MD - 07/03/2025 [place] [address] EXAMINATION: Renal ultrasound. HISTORY: Back pain. Overactive [...] appearance of the kidneys and urinarybladder. Preliminary: Moosa Jax, MD07/03/2025 10:16 AM The attending radiologist has reviewed the image(s) and agrees with thecontent of this report. Referred By: NINA DAILY Interpreted By: Gracie Camara MD, 07/03/2025 10:13 AM us Nina Daily MD ULTRASOUND Final Result from Last 3 Months Insurance MEDICARE [facility] Care Teams Leader Writer Relationship Specialty Start Date End Date Dirk Solis MD [id number] [facility] [address] [place] [address] PCP - General 04/14/25
--- OUTSIDE RECORDS SUMMARY | 2025-08-14 02:23 | XMS_ITS | Data Portability ---
Author Organization [place] - [facility] [employer], Main Office Address [address] [place] [address] Care Team Providers Care Tie Layer Name Role Phone CARMELINA SOLIS Primary Care Provider CARMELINA SOLIS Referring Provider [phone] TANIA MOODY Activity Leader RADHA NICHOLS Plastic/Reconstructive Surgeon CHA YANG Insights Analyst JENAE ALFONSO Head Athletic Trainer Assessment Encounter Date Assessment Date Assessment LastModified by Organization Details LastModified Time 05/29/2024 05/29/2024 05/12/2023: GFR 57, gluc 116 [...] 06/13/2024: Dr Cardoso GFR 56 WBC 4.4 [email or web address] Not available 07/15/2024 13:56:22 09/16/2024 09/16/2024 05/12/2023: GFR 57, gluc 116 A1C 4.9 09/12/2023: CMP/Lipids/TS H/FT4: WNL A1C 4.8 WBC 4.0L 01/15/2024: Labs Stable 05/20/2024: A1C 5.0 06/13/2024: Dr Cardoso GFR 56 WBC 4.4 09/04/2024: Stable dimitri Not available 09/16/2024 19:16:28 02/10/2025 02/10/2025 05/12/2023: GFR 57, gluc 116 A1C 4.9 09/12/2023: CMP/Lipids/TS H/FT4: WNL A1C 4.8 WBC 4.0L 01/15/2024: Labs Stable 05/20/2024: A1C 5.0 06/13/2024: Dr Cardoso GFR 56 WBC 4.4 09/04/2024: Stable 11/02/2024: Dr Cardoso 02/04/2025: Stable dimitri Not available 02/10/2025 09:43:00 06/16/2025 06/16/2025 05/12/2023: GFR 57, gluc 116 A1C 4.9 09/12/2023: CMP/Lipids/TS H/FT4: WNL A1C 4.8 WBC 4.0L 01/15/2024: Labs Stable 05/20/2024: A1C 5.0 06/13/2024: Dr Cardoso GFR 56 WBC 4.4 09/04/2024: Stable 11/02/2024: Dr Cardoso 02/04/2025: Stable 06/11/2025: TG 164 45 minutes spent with the patient from 8.55am till 9.40am, labs reviewed, discussed and reviewed note from Dr Walker mosley Not available 06/16/2025 13:02:08 Plan of Treatment Reminders Order Date Submit Date Provider Last Modified By Organization Details Last Modified Time Details Appointments Any 15 2025 09:15A Anna dean MD Not available Not available Not available Lab lipid panel, serum [email or web address], [address], [place], [address], 06/16/2025 12:00:39 CMP, serum or plasma [address], [address], [place], [address], 06/16/2025 12:00:39 CBC w/ auto diff 2024 025 [facility], [address], [place], [address], 07/29/2025 13:19:32 TSH + free T4, serum [address], [address], [place], [address], 06/16/2025 12:00:40 vitamin D, 25-hydrox y, total, serum [address], [facility], [place], [address], 06/16/2025 12:00:40 HbA1c (hemoglob in A1c), blood [address], [address], [place], [address], 06/16/2025 12:00:39 microalbu min, urine [address], [address], [place], [address], 06/16/2025 12:00:39 lipid panel, serum 2024 025 [facility], [address], [place], [address], 06/12/2025 07:15:11 CMP, serum or plasma 2024 025 [facility], [address], [place], [address], 06/12/2025 07:15:13 CBC w/ auto diff 2024 025 [facility], [address], [place], [address], 03/11/2025 13:31:24 TSH + free T4, serum [address], [address], [place], [address], 08/13/2025 09:35:55 vitamin D, 25-hydrox y, total, serum 2024 025 [facility], [address], [place], [address], 06/12/2025 07:15:17 HbA1c (hemoglob in A1c), blood 2024 025 [facility], [address], [place], [address], 06/12/2025 07:15:18 microalbu min, urine 2024 025 [facility], [address], [place], [address], 02/26/2025 08:32:09 lipid panel, serum 2023 024 [facility], [address], [place], [address], 11/03/2024 08:12:27 CMP, serum or plasma 2023 024 [facility], [address], [place], [address], 11/03/2024 08:12:27 CBC w/ auto diff 2023 024 [facility], [address], [place], [address], 11/03/2024 08:12:27 TSH + free T4, serum 2023 024 [facility], [address], [place], [address], 11/03/2024 08:12:27 vitamin D, 25-hydrox y, total, serum [address], [facility], [place], [address], 03/18/2025 08:25:34 HbA1c (hemoglob in A1c), blood 2023 024 [facility], [facility], [place], [address], 11/03/2024 08:12:27 microalbu min, urine [address], [facility], [place], [address], 03/18/2025 08:25:34 lipid panel, serum 2023 024 [facility], [facility], [place], [address], 09/04/2024 12:15:42 CMP, serum or plasma 2023 024 [facility], [address], [place], [address], 09/04/2024 12:15:42 CBC w/ auto diff 2023 024 [facility], [facility], [place], [address], 09/04/2024 12:15:43 TSH + free T4, serum 2023 024 [facility], [address], [place], [address], 09/04/2024 12:15:43 vitamin D, 25-hydrox y, total, serum [address], [address], [place], [address], 01/14/2025 11:12:18 HbA1c (hemoglob in A1c), blood [address], [address], [place], [address], 01/14/2025 11:12:18 microalbu min, urine [address], [address], [place], [address], 01/14/2025 11:12:18 lipid panel, serum 2023 024 [facility], [address], [place], [address], 06/13/2024 12:09:39 CMP, serum or plasma 2023 024 [facility], [address], [place], [address], 06/13/2024 12:09:39 CBC w/ auto diff 2023 024 [facility], [address], [place], [address], 06/03/2024 09:40:11 TSH + free T4, serum 2023 024 [facility], [address], [place], [address], 06/13/2024 12:09:39 vitamin D, 25-hydrox y, total, serum 2023 024 [facility], [address], [place], [address], 06/13/2024 12:09:39 HbA1c (hemoglob in A1c), blood 2023 024 [facility], [address], [place], [address], 06/13/2024 12:09:39 microalbu min, urine [address], [address], [place], [address], 11/25/2024 14:09:53 Referral ophthalmo logist referral - Please call patient to schedule an appointme nt. Thank you. 2024 025 OSEAS Pena Corrinaandria OD, [address], [place], [address], 06/17/2025 09:52:30 cardiolog ist referral - Please call patient to schedule an appointme nt. Thank you. 2024 025 [place], [address] [facility], [place], [address], 06/17/2025 10:03:12 orthopedi c surgeon referral - Please call patient to schedule an appointme nt. Thank you. 2024 025 SOEAS Vega MD, [address], [address], [place], [address], 06/17/2025 09:37:16 podiatris t referral - Please call patient to schedule an appointme nt. Thank you. 2024 025 MICHAEL Adair DPM, [address] [facility], [address], [place], [address], 06/17/2025 10:40:17 diabetic ophthalmo logy referral - Please call patient to schedule an appointme nt. Thank you. 2024 025 OSEAS Casey, [address], [place], [address], 06/17/2025 09:51:17 orthopedi c surgeon referral - Please call patient to schedule an appointme nt. Thank you. 2024 025 [email or web address] Rip Vega MD, [address], [address], [place], [address], 08/11/2025 09:04:06 podiatris t referral - Please call patient to schedule an appointme nt. Thank you. 2024 025 [email or web address] Jhon Adair DPM, [address] [facility], [facility] [address], [place], [address], 08/11/2025 08:54:23 diabetic ophthalmo logy referral - Please call patient to schedule an appointme nt. Thank you. 2024 025 [email or web address] [employer], [address], [place], [address], 08/11/2025 08:54:48 endocrino logy referral - Please call patient to schedule an appointme nt. Thank you. 2024 025 [place], [address] , [place], [address], 05/19/2025 17:04:13 hematolog ist referral 2023 024 [email or web address] Tania Moody MD, [address], [place], [address], 09/16/2024 17:52:12 plastic surgeon referral 2023 024 [email or web address] Radha Nichols MD, [address] [place], [address], 09/16/2024 17:52:56 cardiolog ist referral 2023 024 [email or web address] [place], [address] [address] , [place] [address], [address], 09/16/2024 17:53:49 podiatris t referral 2023 024 [email or web address] Jhon Adair DPM, [address], [facility] [address], [place], [address], 09/16/2024 17:54:38 diabetic ophthalmo logy referral 2023 024 [email or web address] Andra Baum MD, [address] [facility] [address], [address], 09/16/2024 17:54:39 endocrino logy referral 2023 024 [email or web address] [place], [address], [place], [address], 09/16/2024 17:54:39 hematolog ist referral 2023 024 [email or web address] 2 Tania Moody MD, [address], [place], [address], 01/13/2025 08:33:00 plastic surgeon referral 2023 024 2 Not available 01/13/2025 08:33:03 cardiolog ist referral 2023 024 [email or web address] [place], [address] [address] , [facility] [address], [place], [address], 08/14/2024 08:12:26 ENT surgery referral 2023 024 [email or web address] 2 Jenae Alfonso, [address] [facility], [place], [address], 01/13/2025 08:33:02 podiatris t referral 2023 024 [email or web address] 2 Jhon Adair DP, [address] [facility] [address], [address], 01/13/2025 08:32:57 diabetic ophthalmo logy referral 2023 024 [email or web address] 2 Andra Baum MD, [address] [facility] [address], [place], [address], 01/13/2025 08:32:58 endocrino logy referral 2023 024 [email or web address] 2 [place], [address] [address], [place], [address], 01/13/2025 08:33:01 hematolog ist referral 2023 024 [email or web address] Tania Moody MD, [address], [place], [address], 12/23/2024 18:01:43 podiatris t referral 2023 024 [email or web address] Jhon Adair DPM, [address] [facility], [address], [place], [address], 11/25/2024 14:10:12 diabetic ophthalmo logy referral 2023 024 [email or web address] Andra Baum MD, [address] [facility], [address], [address], 11/25/2024 14:10:13 ENT surgery referral 2023 024 MICHAEL Alfonso, [address] [facility], [place], [address], 07/09/2024 18:12:26 endocrino logy referral 2023 024 [email or web address] [place], [address] [address] , [place], [address], 12/23/2024 18:01:44 Procedures colonosco py screening (PROC) - Please call patient to schedule an appointme nt. Thank you. 2024 025 OSEAS Hernandez MD, [address], [facility] [address], [place], [address], 06/17/2025 09:56:16 colonosco py screening (PROC) - Please call patient to schedule an appointme nt. Thank you. 2024 025 [email or web address] Hernandez MD, [address], [facility] [address], [place], [address], 05/21/2025 09:05:46 colonosco py screening (PROC) 2023 024 [email or web address] Galo Hernandez MD, [address], [address], [place], [address], 09/16/2024 17:50:57 colonosco py screening (PROC) 2023 024 [email or web address] Galo Hernandez MD, [address], [facility] [address], [place], [address], 01/13/2025 09:04:07 colonosco py screening (PROC) 2023 024 [email or web address] Galo Hernandez MD, [address] [facility] [address], [facility] [address], [place], [address], 11/25/2024 14:11:39 Surgeries None recorded. Imaging MAMMO, screening , digital, bilateral - Please call patient to schedule. 2024 025 [facility], [address] [place], [address], 06/16/2025 12:05:44 DEXA, axial skeleton - Please call patient to schedule. [address] [facility], [address] [facility], [place], [address], 06/16/2025 11:53:42 DEXA, axial skeleton - Please call patient to schedule. [address], [address], [place], [address], 03/13/2025 14:43:49 CT, chest, w/o contrast - Updated order for 5. 2024 025 [facility], [address], [place], [address], 02/20/2025 10:44:20 DEXA, axial skeleton [address], [address] [place] [address], [address], 09/17/2024 16:51:27 XR, ribs, unilatera l, w/ PA chest 2023 024 MICHAEL Not available 07/15/2024 10:22:14 MAMMO, screening , digital, bilateral [address], [address] [place] [address], [address], 11/25/2024 18:05:45 US, breast, unilatera l [address] ([facility]), [address] [place] [address], [address], 08/14/2024 08:12:50 MAMMO, diagnosti c, bilateral [address], [address] [place] [address], [address], 11/25/2024 18:05:38 DEXA, axial skeleton [address], [address] [place] [address], [address], 09/17/2024 16:49:20 MAMMO, screening , digital, bilateral [address], [address] [place] [address], [address], 11/25/2024 18:05:26 DEXA, axial skeleton [address], [address] [place] [address], [address], 09/17/2024 16:51:23 Medication Orders pravastat in 40 mg tablet 2024 025 [email or web address] [facility], [facility], [place], [address], 06/16/2025 13:01:02 Patient TargetsNo targets recorded. Patient InstructionsNo instructions recorded. Reason for Referral Tube And Rod Straightener Referral for Type 2 diabetes mellitus without complication Referring Physician: Carmelina Solis Internal Medicine, Encounter Date: 05/29/2024 Diabetic Ophthalmology Refer ral for Type 2 diabetes mellitus without complication Referring Physician: Hanane Quick Medicine, Encounter Date: 05/29/2024 Referring Physician: Hanane Quick Medicine, Encounter Date: 05/29/2024 Endocrinology Referral for H yperprolactinemia Referring Physician: Hanane Quick, Encounter Date: 05/29/2024 ENT Surgery Referral for Chr onic sinusitis Referring Physician: Hanane Quick, Encounter Date: 05/29/2024 Tube And Rod Straightener Referral for Type 2 diabetes mellitus without complication Referring Physician: Hanane Quick, Encounter Date: 07/15/2024 Diabetic Ophthalmology Refer ral for Type 2 diabetes mellitus without complication Referring Physician: Hanane Quick, Encounter Date: 07/15/2024 Referring Physician: Hanane Quick, Encounter Date: 07/15/2024 Endocrinology Referral for H yperprolactinemia Referring Physician: Hanane Quick, Encounter Date: 07/15/2024 ENT Surgery Referral for Chr onic sinusitis Referring Physician: Hannae Quick, Encounter Date: 07/15/2024 Plastic Surgeon Referral for Excess panniculus of abdomen Referring Physician: Hanane Quick, Encounter Date: 07/15/2024 Insights Analyst Referral for Es sential hypertension Referring Physician: Hanane Quick, Encounter Date: 07/15/2024 Tube And Rod Straightener Referral for Type 2 diabetes mellitus without complication Referring Physician: Carmelina Solis Internal Medicine, Encounter Date: 09/16/2024 Diabetic Ophthalmology Refer ral for Type 2 diabetes mellitus without complication Referring Physician: Carmelina Solis Internal Medicine, Encounter Date: 09/16/2024 Referring Physician: Carmelina Solis Internal Medicine, Encounter Date: 09/16/2024 Endocrinology Referral for H yperprolactinemia Referring Physician: Carmelina Solis Internal Medicine, Encounter Date: 09/16/2024 Plastic Surgeon Referral for Excess panniculus of abdomen Referring Physician: Carmelina Solis Internal Medicine, Encounter Date: 09/16/2024 Insights Analyst Referral for Es sential hypertension Referring Physician: Carmelina Solis Internal Medicine, Encounter Date: 09/16/2024 Tube And Rod Straightener Referral for Type 2 diabetes mellitus without complication Please call patient to schedule an appointment. Thank you. Referring Physician: Hanane Quick Medicine, Encounter Date: 02/10/2025 Diabetic Ophthalmology Refer ral for Type 2 diabetes mellitus without complication Please call patient to schedule an appointment. Thank you. Referring Physician: Carmelina Solis Internal Medicine, Encounter Date: 02/10/2025 Endocrinology Referral for H yperprolactinemia Please call patient to schedule an appointment. Thank you. Referring Physician: Carmelina Solis Internal Medicine, Encounter Date: 02/10/2025 Orthopedic Surgeon Referral for Swelling of clavicular region Please call patient to schedule an appointment. Thank you. Referring Physician: Hanane Quick Medicine, Encounter Date: 02/10/2025 Tube And Rod Straightener Referral for Type 2 diabetes mellitus without complication Please call patient to schedule an appointment. Thank you. Referring Physician: Carmelina Solis, Internal Medicine, Encounter Date: 06/16/2025 Diabetic Ophthalmology Refer ral for Type 2 diabetes mellitus without complication Please call patient to schedule an appointment. Thank you. Referring Physician: Carmelina Solis Internal Medicine, Encounter Date: 06/16/2025 Orthopedic Surgeon Referral for Swelling of clavicular region Please call patient to schedule an appointment. Thank you. Referring Physician: Carmelina Solis, Internal Medicine, Encounter Date: 06/16/2025 Insights Analyst Referral for Es sential hypertension Please call patient to schedule an appointment. Thank you. Referring Physician: Carmelina Solis Internal Medicine, Encounter Date: 06/16/2025 Associate Professor Of Education Referral for Dry eyes Please call patient to schedule an appointment. Thank you. Referring Physician: Carmelina Solis Internal Medicine, Encounter Date: 06/16/2025 Results Created Date Observation Date Name Description Value Unit Range Abnormal Flag Note LastModifiedBy Organization Detail LastModifiedTime 07/15/20 24 ribs right w/Pa chest , min 3vw [facility] [address] [address] Patien t Name: BEVERLY CONKLIN CH Access ion #: [id number] Sex: F : 1964 9 Dictat ed By: Kris yang Attend ing Physic norm: SAWYER VERONICA Orderi Physic norm: SAWYER VERONICA Exam Date: 2023 [...] at 2023 07:17: 10 AM Page [address] (Imaging) [address] [place], [address], 07/15/2024 15:00:00 07/15/20 24 07/15/2024 XR, ribs, unila teral , w/ PA chest No observ ation record ed. [address] [place], [address], 07/15/2024 15:00:01 07/29/20 24 07/29/2024 MAMMO , scree shana, digit al, bilat eral No observ ation record ed. [place] [address], [place], [address], 11/25/2024 18:05:12 12/19/19 25 12/17/2024 DEXA, axial skele ton No observ ation record ed. [address], [place], [address], 03/13/2025 14:43:31 02/21/20 25 02/20/2025 CT, chest , w/o contr ast No observ ation record ed. [place] [address], [place], [address], 02/20/2025 10:44:20 Result Notes None recorded. Problems Name Problem SNOMED Code Status Onset Date Resolution Date Notes Provider Name and Address Organization Details Recorded Time Pain in lower limb 04058926 Active Not Available [facility] 3 02:48:10 Disorder of lower limb 738929544 Active Not Available [facility] 3 02:48:10 Disorder of shoulder 657247322 Active Not Available [facility] 3 02:48:10 Folliculit is 62173797 Active Not Available [facility] 3 02:48:10 Asthma 755629862 Active Not Available [facility] 3 02:48:10 Ankle pain 370898362 Active Not Available [facility] 3 02:48:11 Edema 680747126 Active Not Available [facility] 3 02:48:11 Shoulder joint pain 800958799 Active Not Available [facility] 3 02:48:11 Eruption 490714973 Active Not Available [facility] 3 02:48:11 Low back pain 714411308 Active Not Available [facility] 3 02:48:11 Current tear of medial cartilage AND/OR meniscus of knee Active Not Available [facility] 3 02:48:12 Current tear of lateral cartilage AND/OR meniscus of knee Active Not Available [facility] 3 02:48:12 Inflammato ry disorder of extremity 152055902 Active Not Available [facility] 3 02:48:12 Sinusitis 02134071 Active Not Available [facility] 3 02:48:12 Osteoarthr itis 410775476 Active Not Available [facility] 3 02:48:13 Furuncle 860093329 Active Not Available [facility] 3 02:48:13 Cramp in lower limb 274226708 Active Not Available [facility] 3 02:48:13 Tibialis tendinitis 24982597 Active Not Available [facility] 3 02:48:14 Essential hypertensi on 06246681 Active Not Available [facility] 3 02:48:14 Paronychia 38191762 Active Not Available [facility] 3 02:48:14 Palpitatio ns 62486506 Active Not Available [facility] 3 02:48:15 Morbid obesity 140832169 Active 2016 Not Available [facility] 3 02:48:11 Vitamin D deficiency 99045696 Active 2017 Not Available [facility] 3 02:48:12 Plantar fasciitis of right foot 8990979133594 9101 Active 2017 Not Available [facility] 3 02:48:10 Equinus contractur e of the ankle 234392416 Active 2017 Not Available [facility] 3 02:48:10 Bronchitis 19108581 Active 2017 Not Available [facility] 3 02:48:12 Dizziness 309627705 Active 2017 Not Available [facility] 3 02:48:13 Partial thickness rotator cuff tear 177366314 Active 2018 Not Available [facility] 3 02:48:11 Partial thickness rotator cuff tear 753808412 Active 2018 Not Available [facility] 3 02:48:11 Osteoarthr itis of knee 457771236 Active 2018 Not Available [facility] 3 02:48:11 Onychomyco sis of toenails 638542049 Active 2019 Not Available [facility] 3 02:48:13 Pain in right sacroiliac joint 6770502031958 9107 Active 2019 Not Available [facility] 3 02:48:10 Trochanter ic bursitis of right hip 8319281259179 00 Active 2019 Not Available [facility] 3 02:48:12 Diabetic peripheral neuropathy 040863803 Active 2020 Not Available [facility] 3 02:48:13 Trochanter ic bursitis of left hip 6554404685259 03 Active 2020 Not Available [facility] 3 02:48:12 Unable to cut own toenails 209758882 Active 2020 Not Available [facility] 3 02:48:11 Dystrophia unguium 60870293 Active 2020 Not Available [facility] 3 02:48:15 Cough 76568430 Active 2021 Not Available [facility] 3 02:48:14 Urinary tract infectious disease 37066154 Active 2021 Not Available [facility] 3 02:48:14 Candidiasi s of vagina 21508437 Active 2021 Not Available [facility] 3 02:48:14 Bilateral osteoarthr itis of knees 8452927813335 07 Active 2021 Not Available [facility] 3 02:48:10 Bilateral trochanter ic bursitis 1722353554690 9109 Active 2021 Not Available [facility] 3 02:48:10 Pain of right shoulder joint 7283253787086 9100 Active 2021 Not Available [facility] 3 02:48:10 Localized, primary osteoarthr itis of the shoulder region 638001393 Active 2021 Not Available [facility] 3 02:48:10 Pain of sacroiliac joint 203264259 Active 2021 Not Available [facility] 3 02:48:10 Pain of right knee joint 6295024901675 00 Active 2021 Not Available [facility] 3 02:48:14 Dyslipidem ia 473824782 Active 2021 Not Available [facility] 3 02:48:12 Staphyloco ccal infection of skin 349216495 Active 2021 Not Available [facility] 3 02:48:13 Hypothyroi dism 75504691 Active 2021 Not Available [employer] 3 02:48:13 Well controlled type 2 diabetes mellitus 060528603 Active 2021 Not Available [employer] 3 02:48:13 Hyperlipid emia 77639077 Active 2022 Carmelina fontenot MD [address], [place], [address] , [employer] [facility] 3 19:10:33 Type 2 diabetes mellitus without complicati on 227843365 Active 2022 Carmelina fontenot MD [address], [address], [place], [address] , [employer] [facility] 19:10:51 Rheumatoid arthritis 14090119 Active 2022 Carmelina fontenot MD [address], [address], [place], [address] , [employer] [facility] [employer] [facility] 3 19:11:11 Urinary incontinen ce 460170398 Active 2022 Carmelina fontenot MD [address], [place], [address] , [employer] [facility] [employer] [facility] 19:11:43 Pneumonia 675499046 Active 2022 Carmelina fontenot MD [address], [place], [address] , [employer] [facility] [employer] [facility] 3 19:12:13 Hyperprola ctinemia 074267040 Active 2022 Carmelina fontenot MD [address], [place], [address] , [employer] [facility] [employer] [facility] 19:12:19 Hypoprotei nemia 8691039 Active 2022 Carmelina fontenot MD [address], [place], [address] , [employer] [facility] [employer] [facility] 3 19:12:39 Immunodefi ciency disorder 964691004 Active 2022 Carmelina fontenot MD [address], [place], [address] , [facility] [place] [facility] 3 19:13:09 Gastroesop hageal reflux disease without esophagiti s 508807958 Active 2022 Carmelina fontenot MD [address], [place], [address] , [facility] 3 19:13:20 Generalize d anxiety disorder 27939773 Active 2022 Carmelina fontenot MD [address], [place], [address] , [facility] 3 19:13:28 Vertigo 973039019 Active 2022 Carmelina fontenot MD [address], [place], [address] , [facility] 3 19:16:12 Dry eyes 911363139 Active 2022 Carmelina fontenot MD [address], [place], [address] , [facility] 3 19:18:40 Skin lesion 22485095 Active 2022 Carmelina fontenot MD [address], [place], [address] , [facility] 3 12:06:10 Migraine 81836601 Active 2022 Carmelina fontenot MD [address], [place], [address] , [facility] 3 12:07:07 Chronic sinusitis 93534537 Active 2022 Carmelina fontenot MD [address], [place], [address] , [facility] 3 12:33:20 Pain of left hip joint 1524956917918 00 Active 2022 Sayra Vallejo CNA null, [facility] 3 09:19:14 Vaginitis 42982146 Active 2022 Jennifer Carrillo null, [facility] 3 12:29:22 Pain of bilateral hands 7806709370519 9109 Active 2022 Sayra Vallejo CNA null, [facility] 3 11:58:29 Spinal stenosis of lumbar region 53167320 Active 2022 Karlene Bobo null, [facility] 3 12:21:59 Bilateral carpal tunnel syndrome 8240347418620 9101 Active 2022 Rip Vega MD [address], [place], [address] , [facility] 3 12:28:28 Excess panniculus of abdomen 9738915653084 Active 2022 Carmelina fontenot MD [address], [place], [address] , [facility] 3 12:20:48 Acute sinusitis 17866178 Active 2022 Jennifer Carrillo null, [facility] 3 13:02:51 Swelling of clavicular region 0399418284 Active 2022 Carmelina fontenot MD [address], [place], [address] , [facility] 3 09:46:23 Solitary nodule of lung 954734097 Active 2022 BRANDI Barrios null, [facility] 3 12:34:04 Candidiasi s of mouth 61797475 Active 2023 BRANDI Barrios null, [place] - [facility] 4 16:17:57 Uncontroll ed type 2 diabetes mellitus 978648018 Active 2023 [facility]irti Shannon [facility] 4 13:00:58 Pain of right breast 3354085168 Active 2023 Carmelina fontenot MD [address], [place], [address] , [facility] [employer] [facility] 4 09:34:50 Right sided chest pain 775461759 Active 2023 Carmelina fontenot MD [address], [place], [address] , [facility] [employer] [facility] 4 09:36:22 Oral herpes simplex infection 078895711 Active 2024 Carmelina fontenot MD [address], [place], [address] , [facility] [employer] [facility] 5 11:02:08 Hypercorti solism 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 Procedures Surgical History Date Name Laterality Status Provider Name and Address Organization Details Recorded Time 03/30/20 23 Ortho - Cortisone Injection completed Rip Vega MD [address], [place], [address], [facility] [employer] [facility] 03/30/2023 09:49:12 08/12/20 20 Most Recent Mammogram completed Not Available [facility] 12/28/2022 02:42:50 10/17/20 19 Hysterectomy completed Not Available [facility] 023 02:42:54 10/17/20 19 [facility] Surgery completed Not Available [facility] 12/29/19 02:42:54 09/19/20 19 Dilation and curettage completed Not Available [facility] 12/28/2022 02:42:54 09/19/20 19 [facility] Surgery completed Not Available [facility] 12/29/19 02:42:54 01/03/20 19 Knee arthroscopy/surge ry completed Not Available [facility] 12/28/2022 02:42:54 04/05/20 18 Date of Last Pap Smear completed Not Available [facility] 12/28/2022 02:42:49 04/20/20 17 hysteroscopy with biopsy completed Not Available [facility] 12/28/2022 02:42:54 04/20/20 17 [facility]AN Surgery completed Not Available [facility] 12/29/19 02:42:54 04/20/20 17 Dilation and curettage completed Not Available [facility] 12/28/2022 02:42:54 Tonsillectomy completed Not Available [facility] 12/28/2022 02:42:54 other completed Not Available [facility] 10/2022 02:42:54 other completed Not Available [facility] 10/2022 02:42:54 Orthopedic Surgery completed Not Available [facility] 12/28/2022 02:42:54 other completed Not Available [facility] 10/2022 02:42:54 Gallbladder Surgery completed Not Available [facility] 12/28/2022 02:42:54 ENT Surgery completed Not Available [facility] 12/28/2022 02:42:54 other completed Not Available [facility] 10/2022 02:42:54 section completed Not Available [facility] 12/28/2022 02:42:54 [facility] Surgery completed Not Available [facility] 12/28/2022 02:42:54 Bronchoscopy completed Not Available [facility] 12/28/2022 02:42:54 Imaging Results None recorded. Procedure Notes None recorded. Medical Equipment None Reported. Allergies Allergen ID Allergen Name Allergen Category Reaction Reaction Severity Criticality Documentation Date Start Date Code Code System Note Provider Name and Address Organization Details Recorded Time 4336 Substance with sulfonami de structure and antibacte rial mechanism of action (substanc e) medicatio n hives Not available Not available 12/28/2022 53896 8003 SNOMED Not Available [facility] 3 02:55:44 4337 fentanyl medicatio n other Not available Not available 12/28/2022 4337 RxNorm respi rator y distr ess Not Available [facility] 3 02:55:44 4338 codeine medicatio n vomiting Not available Not available 12/28/2022 2670 RxNorm Not Available [facility] 3 02:55:45 4339 amoxicill in medicatio n hives Not available Not available 12/28/2022 723 RxNorm Not Available [facility] 3 02:55:45 4340 amitripty line medicatio n other Not available Not available 12/28/2022 704 RxNorm unabl e to urina te Not Available [facility] 3 02:55:45 17623 peach food rash moderate Not available 01/22/2024 BRANDI Barrios null, [place] 4 11:22:05 Medications Name Sig Start Date Stop Date Status Note LastModified by Organization Details LastModified Time cmp ciproflox acin 400mg capsule EMPTY 1 CAPSULE INTO IDS, ADD DISTILLE D WATER, ADD SALT PACKET, IRRIGATE TWICE DAILY 09/16 completed Not Available Not Available Not Available compound drug 09/16 completed Not Available Not [...] completed Not Available Not Available Not Available pravastat in 40 mg tablet Take 1 tablet every day by oral route for 90 days. 2024 active Not Available Not Available Not Avai lable miconazol e nitrate 2 % topical cream [...] NEEDED UP TO 8 TABLETS PER DAY 06/16 completed Not Available Not Available Not Available ondansetr on HCl 4 mg tablet [...] elayed release TAKE 1 CAPSULE DAILY NEEDED 2024 active Not Available Not Available Not Avai lable liothyron ine 5 mcg tablet active Not [...] Not Available Not Available Not Available meloxicam 7.5 mg tablet TAKE 1 TABLET BY MOUTH ONCE DAILY NEEDED FOR ARTHRITI S DISCOMFO RT active Not Available Not Available No t Available oxycodone -acetamin ophen 5 mg-325 mg [...] mg by injectio n route. 04/27 completed [facility]: [phone] 4-20 Not Available Not Available Not Available dexametha sone 1 mg tablet TAKE 1 TABLET BY MOUTH 1 TIME AT 10 PM FOR 1 DAY 06/16 completed Not Available Not Available Not Available [...] 1 PUFF BY MOUTH EVERY 12 HOURS 06/16 completed Not Available Not Available Not Available losartan 25 mg tablet 2 Tablets [...] tab Not Available Not Available Not Available budesonid e 0.25 mg/2 mL suspensio n for nebulizat ion USE 1 VIAL VIA IRRIGATI ON BOTTLE TWICE A DAY active Not Available Not Available No t Available omeprazol e 20 mg capsule,d elayed [...] monteluka st 10 mg tablet TAKE 1 TABLETBY MOUTH ONCE DAILY 2024 active Not Available Not Available Not Avai lable pravastat in 20 mg tablet TAKE 1 TABLET BY MOUTH DAILY 06/16 completed Not Available Not Available Not Available hydrochlo rothiazid e 25 mg tablet [...] 1 mL 30 gauge x 05/14 USE 1 EACH TO INJECT B12 WEEKLY active Not Available [...] TAKE 1 TABLET DAILY IN THE MORNING 2024 active Not Available Not Available Not Avai lable Vitamin D2 1,250 mcg (50,000 unit) capsule [...] mg tablet TAKE 1 TABLET DAILY NEEDED 2024 active Not Available Not Available Not Avai lable ipratropi um bromide 0.02 % solution for [...] n administ ered by the provider active [facility]: [phone] 6 Not Available Not Available Not [...] TAKE 2 CAPSULES DAILY IN THE MORNING 2024 active Not Available Not Available Not Avai lable dapsone 5 % topical gel APPLY A THIN LAYER TO BUTTOCK/ GROIN AREA TWICE DAILY EVERY OTHER DAY TO PREVENT FLARES 04/27 completed Not Available Not Available Not Available azelastin e 205.5 mcg (0.15 %) nasal spray [place] 2 sprays twice a day by intranas [...] mg by injectio n route. 04/27 completed [facility] 74839-01 01-28 Not Available Not Available Not Available Fluzone 9028-7439 45 mcg (15 mcg x 3)/0.5 mL [...] Not Available Not Available Not Available Fluvirin 5124-6893 45 mcg (15 mcg x 3)/0.5 mL [...] completed Not Available Not Available Not Available Ubrelvy 100 mg tablet Take by oral route. active Not Available Not Available No t Available Paxlovid 150 mg-100 mg tablets in a dose pack (Moderate Renal Dose) TAKE BY MOUTH DIRECTED 06/15 completed [...] in Arterial blood by Pulse oximetry Systolic And Diastolic Provider Name and Address Organization Details Last Updated DateTime 5 160.02 cm 36.8 kg/m2 91338.2 1 g 98.7 [degF] 67 /min 98 % 98 % 130/72 mm[Hg] SUZY Rasmussen [facility] [employer] [facility] 5 09:35:57 Date Recorded Body height Body mass index (BMI) Body weight Body temperature Heart rate Oxygen saturation Oxygen saturation in Arterial blood by Pulse oximetry Systolic And Diastolic Provider Name and Address Organization Details Last Updated DateTime 4 160.02 cm 37.2 kg/m2 76887.4 g 98.3 [degF] 89 /min 96 % 96 % 130/74 mm[Hg] Barbara Wheat MA [facility] [employer] [facility] 4 14:36:32 Date Recorded Body height Body mass index (BMI) Body weight Body temperature Heart rate Oxygen saturation Oxygen saturation in Arterial blood by Pulse oximetry Pain severity - 0-10 verbal numeric rating [Score] - Reported Systolic And Diastolic Provider Name and Address Organization Details Last Updated DateTime 5 160.02 cm 36.5 kg/m2 48494.0 3 g 98.4 [degF] 78 /min 98 % 98 % 4 138/78 mm[Hg] Barbara Wheat MA [facility] [employer] [facility] 5 09:52:58 Date Recorded Body height Body mass index (BMI) Body weight Body temperature Heart rate Respiratory rate Oxygen saturation Oxygen saturation in Arterial blood by Pulse oximetry Pain severity - 0-10 verbal numeric rating [Score] - Reported Systolic And Diastolic Provider Name and Address Organization Details Last Updated DateTime 4 160.02 cm 36.3 kg/m2 20574.4 4 g 98.2 [degF] 70 /min 16 /min 96 % 96 % 6 128/80 mm[Hg] Reinier Ziegler LPN [facility] [employer] [facility] 4 09:16:32 Date Recorded Body height Body mass index (BMI) Body weight Body temperature Heart rate Systolic And Diastolic Provider Name and Address Organization Details Last Updated DateTime 4 160.02 cm 36.3 kg/m2 18537.4 4 g 97.9 [degF] 72 /min 138/76 mm[Hg] Talisha Hogue Gutierrez [facility] [employer] [facility] 4 10:04:10 Social History Question Answer Notes LastModified by Organization Details LastModified Time Tobacco Smoking Status Former Smoker quit age 32 Sherita hutchinson [facility] [employer] [facility] 04/27/2023 11:35:25 Do You Have An Advance Directive? No [id number] Information not available 12/28/2022 What Is Your Level Of Caffeine Consumption? Moderate [id number] Information not available 12/28/2022 How Much Tobacco Do You Chew? None [id number] Information not available 12/28/2022 In The 14 [...] Of Diet Are You Following? REGULAR [id number] Information not available 12/28/2022 Which Illicit Or Recreational Drugs Have You Used? None Information not available 04/27/2023 What Is The Highest Grade Or Level Of School You Have Completed Or The Highest Degree You Have Received? [id number] Information not available 04/27/2023 Have There Been [...] Do You Have A Medical Power Of Machine Group Leader? No Information not available 04/27/2023 What Was The Date Of Your Most Recent Tobacco Screening? 06/16/2025 [email or web address] Information not available 06/16/2025 Have You Ever Been Counseled For Unhealthy Alcohol Use? No Information not available 04/27/2023 Do You Have Any Pets? Yes Information not available 04/27/2023 What Is Your Relationship Status? [id number] Information not available 12/28/2022 Do You Use Your Seat Belt Or Car Seat Routinely? Yes Information not available 04/27/2023 Do You Have Smoke And Carbon Monoxide Detectors In Your Home? Yes Information not available 04/27/2023 At What Age Did You Start Smoking Tobacco? 12 Information not available 04/27/2023 Are You Passively Exposed To Smoke? No Information not available 04/27/2023 How Much Tobacco Do You Smoke? No [id number] Information not available 12/28/2022 What Types Of Sporting Activities Do You Participate In? None Information not available 04/27/2023 Do You Use Sunscreen Routinely? Yes Information not available 04/27/2023 How Many Years Have You Smoked Tobacco? 15 Information not available 04/27/2023 Have You Recently Traveled Abroad? No Information not available 04/27/2023 Do You Have Any Dietary Restrictions? No Information not available 04/27/2023 Sex: Female Functional Status Question Answer Note LastModified by Organizat ion Details LastModified Time Do you use any illicit or recreational drugs? No Information not available 04/27/2023 Do you or have you ever used any other forms of tobacco or nicotine? Yes Information not available 04/27/2023 What is your level of alcohol consumption? None Information not available 04/27/2023 Do you or have you ever used smokeless tobacco? Never used smokeless tobacco [id number] Information not available 12/28/2022 What is your occupation? unemployed Information not available 04/27/2023 Do you or have you ever used e-cigarettes or vape? Never used electronic cigarettes Information not available 04/27/2023 What is your exercise level? None [id number] Information not available 12/28/2022 Mental Status Question Answer Note LastModified by Organization D etails LastModified Time Do you feel stressed (tense, restless, nervous, or anxious, or unable to sleep at night)? [id number] Information not available 04/27/2023 Family History Relationship Description Onset Age of this Age Resolved Age Notes LastModified by Organization Details LastModified Time Mother Chronic obstructive pulmonary disease [email or web address] Not available 09:39:16 Mother Carcinoma of lung [email or web address] Not available 09:39:16 Mother Essential hypertension [email or web address] Not available 09/16/2024 09:39:16 Mother Malignant neoplasm of brain [email or web address] Not available 09:39:16 Mother Family history of malignant neoplasm [email or web address] Not available 09:39:16 Mother Diabetes mellitus [id number] Not available 12/28/2022 02:42:58 Father Essential hypertension [email or web address] Not available 09/16/2024 09:39:16 Father Malignant neoplasm of colon [email or web address] Not available 09:39:16 Father Obesity [email or web address] Not avail able 09/16/2024 09:39:16 Father Family history of malignant neoplasm [email or web address] Not available 09:39:16 Father Diabetes mellitus Not available 2022 11:55:54 Unspecified Relation Malignant neoplasm of breast Aunt? [email or web address] Not available 09:39:16 Notes:cancer - mother & [...] ARTERY DISEASE (CAD) N ADDICTION CONCERNS N Impotence N ENDOMETRIOSIS N USE OF BLOOD THINNERS N SKIN [...] GLAUCOMA N FOOT PROBLEM N DIVERTICULITIS N SLEEP APNEA Y CHICKENPOX N ALLERGIES/HAYFEVER N INFECTIOUS DISEASE N PROSTATE N HEART ARRHYTHMIA N INSOMNIA N HIGH CHOLESTEROL / HYPERLIPIDEMIA Y EYE PROBLEMS Y HYPERTHYROIDISM N NEUROLOGICAL PROBLEMS N EDEMA Y CHRONIC PAIN SYNDROME N HYPOTHYROIDISM Y CONSTIPATION N CAROTID BLOCKAGE N BACK / NECK PROBLEMS Y HAVE YOU BEEN HOSPITALIZED OR SEEN IN [facility] IN THE PAST YEAR ? Y [...] N ALZHEIMER'S DISEASE N Brain Problems N DEMENTIA N HERPES Y SEIZURES/EPILEPSY N HEADACHES/MIGRAINES N VASCULAR DISEASE N PACEMAKER N Blood Disorder N DIZZINESS N HEART DISEASE/HEART PROBLEMS N KIDNEY DISEASE N MULTIPLE SCLEROSIS N CANCER: SPECIFY N CARDIAC ARRHYTHMIA N ANESTHESIA COMPLICATIONS N ATRIAL FIBRILLATION N Gall Stones N PULMONARY EMBOLISM N AUTOIMMUNE DISEASE N Gynecological History Statement/Question Response Abnormal Pap N Date of Last Mammogram Date of LMP Date of Last Pap Current Control Method Hysterectom y Most Recent Mammogram 08/12/2020 How many live births 1 If Post Menopausal, Age at Menopause Date of Last Mammogram 08/12/2020 Date of Last Colonoscopy Most Recent Bone Density Sexually Active? Y Date of Last Pap Smear 04/05/2018 Obstetrics History GPAL:G 1 P 1 0 0 1 Type Value Multiple Births 0 Full Term 1 Induced 0 Spontaneous 0 Premature 0 Living 1 Ectopics 0 Total 1 Immunizations Vaccine Type Date Status Note Provider Nam e and Address Organization Details Recorded Time COVID-19, mRNA, LNP-S, PF, 30 mcg/0.3 mL dose 1 completed Not Available [facility] 12/28/2022 02:55:27 COVID-19, mRNA, LNP-S, PF, 100 mcg/0.5mL dose or 50 mcg/0.25mL dose 1 completed Not Available [facility] 12/28/2022 02:55:28 zoster recombinant 0 completed Not Available [facility] 12/28/2022 02:55:28 Influenza, split virus, quadrivalent, preservative 9 completed Not Available [facility] 12/28/2022 02:55:28 Influenza, split virus, quadrivalent, preservative 8 completed Not Available [facility] 12/28/2022 02:55:28 Influenza, split virus, quadrivalent, preservative 7 completed Not Available [facility] 12/28/2022 02:55:28 Influenza, split virus, quadrivalent, preservative 6 completed Not Available [facility] 12/28/2022 02:55:28 Influenza, split virus, trivalent, preservative 2 completed Not Available [facility] 12/28/2022 02:55:28 Influenza, split virus, quadrivalent, PF 0 completed Not Available [facility] 12/28/2022 02:55:28 pneumococcal polysaccharide PPV23 0 completed Not Available [facility] 12/28/2022 02:55:29 Pneumococcal conjugate PCV 13 7 completed Not Available [facility] 12/28/2022 02:55:29 Tdap 7 completed Not Available [facility] 12/28/2022 02:55:29 Influenza, split virus, quadrivalent, preservative 9 completed Not Available [facility] 06/16/2025 09:49:48 zoster recombinant 1 completed Not Available [facility] 06/16/2025 09:49:48 COVID-19, mRNA, LNP-S, PF, 30 mcg/0.3 mL dose, antonio-sucrose 2 completed Not Available [facility] 06/16/2025 09:49:48 Influenza, split virus, quadrivalent, PF 2 completed Not Available [facility] 06/16/2025 09:49:48 Influenza, MDCK, quadrivalent, PF 3 completed Not Available [facility] 06/16/2025 09:49:48 COVID-19, mRNA, LNP-S, PF, antonio-sucrose, 30 mcg/0.3 mL 3 completed Not Available [facility] 06/16/2025 09:49:48 Past Encounters Encounter ID Performer Location Encounter Start Date Encounter Closed Date Diagnosis/Indication Diagnosis SNOMED-CT Code Diagnosis ICD10 Code Diagnosis IMO Codes Diagnosis Note [id number] Cordelia Cardoso MD [facility] [address] [place] [id number] 01/11/2021 00:00:00 01/11/2021 09:43:23 [id number] Carmelina fontenot MD [facility] Internal [facility] [place] [address] [facility] [address] [place] [address] 01/13/2021 00:00:00 01/26/2021 16:07:20 [id number] Carmelina fontenot MD [facility] [place] [address] [address] [place] [address] 01/22/2021 00:00:00 01/22/2021 17:48:35 [id number] Carmelina fontenot MD [facility] [address] [place] [address] [place] [address] 03/01/2021 00:00:00 03/04/2021 10:03:59 [id number] Rip Vega MD [facility] Ortho [place] [address] [facility] [address] [place] [address] 03/18/2021 00:00:00 03/18/2021 15:22:39 [id number] Carmelina fontenot MD [facility]_GMG Internal Med [address] [place] [address] 04/12/2021 00:00:00 04/12/2021 14:22:13 [id number] Jhon Adair DPM [facility] Podiatry [place] [address] [facility] [address] [place] [address] 04/27/2021 00:00:00 04/27/2021 14:10:47 [id number] Rip Vega MD [facility] [place] [address] [facility] [address] [place] [address] 05/11/2021 00:00:00 05/11/2021 15:17:51 [id number] Cordelia Cardoso MD [facility] [place] [address] [facility] [address] [place] [address] 05/18/2021 00:00:00 05/18/2021 09:53:45 [id number] Carmelina fontenot MD [facility] Internal Med [place] [address] [place] [address] [place] [address] 05/24/2021 00:00:00 07/12/2021 15:27:08 [id number] [facility]_Histor ic_[facility]way _ATHENA_M IGRATION_ DEFAULT_1 _1 , 06/18/2021 00:00:00 06/18/2021 11:44:49 [id number] Bryant Bah MD [facility] Orth[facility] [place] [address] [place] [address] 07/20/2021 00:00:00 07/20/2021 13:15:56 [id number] SIMON GibbonsM S_GMG Podiatry [place] [address] [place] [address] 07/23/2021 00:00:00 07/23/2021 11:04:50 [id number] Bryant Bah MD S[facility] [place] [address] [place] [address] 07/28/2021 00:00:00 07/28/2021 14:35:06 [id number] Bryant Bah MD [facility] [place] [address] [place] [address] 08/18/2021 00:00:00 08/18/2021 17:40:43 [id number] Rip Vega MD [facility] [place] [address] [place] [address] 09/13/2021 00:00:00 09/13/2021 12:44:28 [id number] Carmelina fontenot MD [facility] Internal [place] [address] [facility] [place] [address] 11/17/2021 00:00:00 12/08/2021 15:35:58 [id number] Cordelia [place] MD [facility] [place] [address] [place] [address] 12/20/2021 00:00:00 12/20/2021 09:50:57 [id number] Carmelina fontenot MD [facility] Internal Med [place] [address] [place] [address] 02/14/2022 00:00:00 02/14/2022 15:45:35 [id number] Carmelina fontenot MD S[facility] Internal Med [place] [address] [facility] [place] [address] 05/04/2022 00:00:00 05/04/2022 12:40:39 [id number] Carmelina fontenot MD S[facility] Internal Med [place] [address] [facility] y , [place] [address] 06/15/2022 00:00:00 06/29/2022 16:34:46 [id number] Rip Vega MD [facility] Orth[facility] [place] [address] [place] [address] 06/16/2022 00:00:00 06/16/2022 16:50:25 [id number] S_Histor ic_[facility]way [facility] Endo [place] [address] [place] [address] 08/02/2022 00:00:00 08/03/2022 17:09:15 [id number] Carmelina fontenot MD S[facility] [place] [address] [facility] [address] , [place] [address] 09/14/2022 00:00:00 09/14/2022 16:49:12 [id number] Rip Vega MD [facility] Orth[facility] [place] [address] [place] [address] 10/20/2022 00:00:00 10/20/2022 14:00:29 [id number] Rip Vega MD [facility] Orth[facility] [place] [address] [place] [address] 11/07/2022 00:00:00 11/07/2022 12:58:28 [id number] Rip Vega MD [facility] Orth[facility] [place] [address] [place] [address] 11/15/2022 00:00:00 11/15/2022 16:14:02 [id number] Cordelia [place] MD [facility] Endo [place] [address] [place] [address] 12/02/2022 00:00:00 12/02/2022 17:52:13 [id number] Carmelina fontenot MD [facility]_G Internal Med [place] [address] [place] [address] 01/23/2023 11:30:02 01/23/2023 12:37:50 Screening - NAD [id number] Z13.9 C-scope: 02/06/19: Dr Jazmin dimas next [...] understand ing of the above Essential hypertension 32823571 I10 On spironolac tone 50mg dailyOn losartan 100mg dailyOn diltiazem CD 120mg dailyget labs See [facility] Dr Yang Stress test 12/08/2021 : Neg Hyperlipidemia 09475783 E78.5 On pravastati n 20mg dailyNot on fenofibrat e 48mg daily Diet and exerciseGe t labs Does see Dr Cardoso 12/20/2021 , next 06/20/2022 Type 2 jossie betes mellitus without complication 861772248 E11.9 Type 2 diabetes mellitus without complicati onOn metformin Not on ozempic On donnaunjaurban nowSeeing Dr Cardoso last 12/02/2022 Needs to see eye MD and has an apt with Dr Ting Maher seen Dr Adair podiatry, and was told had toe nail fungusIs to now get diabetic shoes Asthma 739007746 J45.90 9 03/23/2021 : CT chest On albuterolO n albuterol HHNOn advairOn ipratropiu mOn budesonide On loratidine On singulair Not on symbicort On spirivaOn flonaseOn O2 Has seen the pulmonary MD Dr Maxwell Rheumatoid arthritis [address] Nancy Ruiz in past Dr Jitendra Dietz leflunamid eOff hydroxychl oroquineOn CelebrexOn Simponi AriaOn prednisone On tramadol, given by Dr Ham Dry eyes 312853241 H04.1 23 On restasis, does well on this Hypothyroidism 46184229 E03.9 US thyroid 11/22/18US thyroid 08/04/2020 On synthroid 88mcgs dailyGet labs and see Dr Cardoso Urinary incontinence 165 078942 R32 On oxybutynin ER 10mg daily, Sienna Pena 03/01/2021 : Dr Mi, does well, notify if any symptoms Eruption 222970129 R21 On triamcinol one Does well Pneumonia 606565715 J18. 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 : Resubmitte d for IVIG and f.u in 4 months Since then has had sinus infections and was to see ENT and also to get CPAP Juan Moody Gastroesop hageal reflux disease without esophagitis 822471753 K21.9 On omeprazole 07/01/2021 : EGD: Dr Hernandez states 02/14/2022 that she does not need this n Generalize d anxiety disorder 53188460 F41.1 Does wellNot suicidal or homicidal, declines any referralsO n buspirone 5mg po bid Vertigo 139804404 R42 See case from 04/07/2020 ; Vertigo from getting a CT scan, started on the meclizine0 04/08/2020: Dr Pride ENT: Is to get an audiogram and VNG, c/o tinnitius S/P CT Sinuses 04/04/2020 S/p VNG 04/30/2020 On diazepam, states that she takes this very rarelyOn meclizineT akes it as needed Does see ENT Dr Pride now as needed Vitamin D deficiency 347 04524 E55.9 Low back pain 966390518 M54.50 MRI L Spine 11/09/2022 Dr Vega 11/15/2022 Skin lesion 74798399 L98 .9 Has been on dapsone, given by Dr Lawson Migraine 09387369 G43.90 9 On sumatripta n 25mg as needed given by Dr Moody Chronic sinusitis 544495 00 J32.[address] Howard on her own, finsihed her doxy, get a referral again [id number] Rip Vega MD [facility] [place] [address] [place] [address] 03/30/2023 09:12:12 03/30/2023 11:23:24 Low back pain 810519025 M54.50 Partial th ickness rotator cuff tear 649218328 M75.102 Bilateral osteoarthritis of knees 3936760090 06587 M17.0 Morbid obesity 222046036 E66.01 Pain of sa croiliac joint 870220090 M53.3 Bilateral trochanteric bursitis 3885613412 9010123 M70.61 M70.62 Pain of ri ght shoulder joint 1472916993 8775507 M25.511 Localized, primary osteoarthritis of the shoulder region 888855932 M19.011 Pain of le ft hip joint 7511110641 54974 M25.552 [id number] Rip Vega MD [facility] [place] [address] [place] [address] 04/27/2023 11:34:16 04/27/2023 13:37:22 Pain of bilateral hands 3734937696 5797339 M79.641 M79.642 Spinal todd nosis of lumbar region 27981761 M48.062 Bilateral carpal tunnel syndrome 5569328881 2621582 G56.03 [id number] Carmelina fontenot MD [facility] Internal Med [place] [address] [facility] [place] [address] 05/22/2023 11:23:22 05/22/2023 12:22:26 Screening - NAD 446740613 Z13.9 C-scope: 02/06/19: Dr Jazmin dimas next [...] understand ing of the above Essential hypertension 96516960 I10 On spironolac tone 50mg dailyOn losartan 100mg dailyOn diltiazem CD 120mg dailyget labs See [facility] Dr Yang Stress test 12/08/2021 : Neg Hyperlipidemia 13371921 E78.5 On pravastati n 20mg dailyNot on fenofibrat e 48mg daily Diet and exerciseGe t labs Does see Dr Cardoso 12/20/2021 , next 06/20/2022 Type 2 jossie betes mellitus without complication 403555767 E11.9 Type 2 diabetes mellitus without complicati onOn metforminN ot on ozempicOn mounjaro nowSeeing Dr Cardoso Needs to see eye MD and has an apt with Dr Ting Maher seen Dr Adair podiatry, and was told had toe nail fungusIs to now get diabetic shoes Asthma 504784509 J45.90 9 03/23/2021 : CT chest On albuterolO n albuterol HHNOn advairOn ipratropiu mOn budesonide On loratidine On singulairO n spiriva Not on symbicort On spirivaOn flonaseOn O2 Has seen the pulmonary MD Dr Maxwell Rheumatoid arthritis [address] Nancy Ruiz in past Dr Jitendra Dietz leflunamid eOff hydroxychl oroquine On CelebrexOn Simponi AriaOn prednisone On tramadol, given by Dr Ham Dry eyes 062374337 H04.1 23 On restasis, does well on this Hypothyroidism 42296411 E03.9 US thyroid 11/22/18US thyroid 08/04/2020 On unithyroid 88mcgs dailyGet labs and see Dr Cardoso Urinary incontinence 165 369901 R32 On oxybutynin ER 10mg daily, Sienna Pena 03/01/2021 : Dr Mi, does well, notify if any symptoms Eruption 227672460 R21 On triamcinol one Does well Pneumonia 512302049 J18. 9 S/p COVID 19 pneumonia, seen by Dr Sommers [place], multiple hospitaliz ationsNow sees Dr Maxwell Hyperprolactinemia 34239 2004 E22.1 04/08/2020 : Dr Pride ENT: Is to get an audiogram and VNG, as per ENT diagnosed with prolactino ma, will d/w endocrine Dr Cardoso Osteoarthritis 535248821 M19.90 Dr Vega: L shoulder rotater cuff, knee pain, Bilateral hip painNo more apts Hypoproteinemia 1402604 E88.[address] Moody Immunodefi ciency disorder 784245434 D84.9 09/14/2020 : IgG defeciency : Resubmitte d for IVIG and f.u in 4 months Since then has had sinus infections and was to see ENT and also to get CPAP lennoxDr Fransisco Gastroesop hageal reflux disease without esophagitis 920362973 K21.9 On omeprazole 07/01/2021 : EGD: Dr Hernandez states 02/14/2022 that she does not need this n Generalize d anxiety disorder 56269176 F41.1 Does wellNot suicidal or homicidal, declines any referralsO n buspirone 5mg po bid Vertigo 687752102 R42 See case from 04/07/2020 ; Vertigo from getting a CT scan, started on the meclizine0 04/08/2020: Dr Pride ENT: Is to get an audiogram and VNG, c/o tinnitius S/P CT Sinuses 04/04/2020 S/p VNG 04/30/2020 On diazepam, states that she takes this very rarelyOn meclizineT akes it as needed Does see ENT Dr Pride now as needed Vitamin D deficiency 347 06763 E55.9 Low back pain 168126274 M54.50 MRI L Spine 11/09/2022 Dr Vega 11/15/2022 Skin lesion 42485371 L98 .9 Has been on dapsone, given by Dr Lawson Migraine 17545426 G43.90 9 On sumatripta n 25mg as needed given by Dr Moody Chronic sinusitis 584877 [address] sinus: 04/20/[address] Howard on her own Excess mai niculus of abdomen 2659943495 101 E65 Has had pannus since she has lost a weight, has noted a rash likely erin none today, refer to plastic surgery [id number] Cordelia Cardoso MD [facility] End[facility] [place] [address] [place] [address] 05/30/2023 09:30:02 05/30/2023 10:24:42 Well controlled type 2 diabetes mellitus 077814764 E11.9 A1C under 5% - patient has continued losing weight up to 98 pounds over past few years and another few pounds since last visit. Will uptitrate mounjaro to 10 mg once weekly and continue with metformin for insulin sensitizat ion. Hypothyroidism 78861692 E03.9 Continue synthroid but reduce to 75 [...] and minerals and reduce inflammati on. Dyslipidemia 419274346 E 78.5 Continue statin therapy as LDL in range. Staphyloco ccal infection of skin 006992704 B95.8 Refill mupirocin for staphyloco ccal skin [...] answered and refills necessary at visit today. [id number] Carmelina fontenot MD [facility] Internal Med [place] [address] [place] [address] [facility] [place] [address] 09/18/2023 11:26:19 09/18/2023 14:15:35 Screening - NAD 464589611 Z13.9 C-scope: 02/06/19: Dr Jazmin dimas next [...] understand ing of the above Essential hypertension 67493817 I10 On spironolac tone 50mg dailyOn losartan 100mg dailyOn diltiazem CD 120mg dailyget labs See [facility] Dr Yang last OV 04/04/2023 , f/u in 6 months Stress test 12/08/2021 : Neg Hyperlipidemia 48875872 E78.5 On pravastati n 20mg dailyNot on fenofibrat e 48mg daily Diet and exerciseGe t labs Does see Dr Cardoso 12/20/2021 , next 06/20/2022 Type 2 jossie betes mellitus without complication 935758821 E11.9 Type 2 diabetes mellitus without complicati onOn metformin ER 500mg bidNot on ozempicOn mounjaro nowSeeing Dr Cardoso Needs to see eye MD and has an apt with Dr Ting Maher seen Dr Adair podiatry, and was told had toe nail fungusIs to now get diabetic shoes Asthma 560054811 J45.90 9 03/23/2021 : CT chest On albuterolO n albuterol HHNOn advairOn ipratropiu mNot on budesonide On flonaseOn loratidine On singulairO n spiriva Not on symbicort On spirivaOn O2 Has seen the pulmonary MD Dr Maxwell Rheumatoid arthritis [address] Nancy Ruiz in past Dr Jitendra Dietz leflunamid eOff hydroxychl oroquine On CelebrexOn Simponi AriaOn prednisone On tramadol, given by Dr Ham Dry eyes 059588899 H04.1 23 On restasis, does well on this Hypothyroidism 41292842 E03.9 US thyroid 11/22/18US thyroid 08/04/2020 On unithyroid 88mcgs daily Urinary incontinence 165 360311 R32 On oxybutynin ER 10mg daily, Sienna Pena 03/01/2021 : Dr Mi, does well, notify if any symptoms Eruption 325577817 R21 On triamcinol one Does well Pneumonia 668034600 J18. 9 S/p COVID 19 pneumonia, [facility] Dr Sommers [place] Hyperprolactinemia 22625 2004 E22.1 04/08/2020 : Dr Pride ENT: Is to get an audiogram and VNG, as per ENT diagnosed with prolactino ma, will d/w endocrine Seen by Dr Cardoso Osteoarthritis 791256966 M19.90 Dr Vega: L shoulder rotater cuff, knee pain, Bilateral hip painNo more apts Hypoproteinemia 6541335 E88.[address] Moody Immunodefi ciency disorder 520037469 D84.9 09/14/2020 : IgG defeciency : Resubmitte d for IVIG and f.u in 4 months Since then has had sinus infections and was to see ENT and also to get CPAP Juan Moody Gastroesop hageal reflux disease without esophagitis 476116468 K21.9 On omeprazole 07/01/2021 : EGD: Dr Hernandez states 02/14/2022 that she does not need this n Generalize d anxiety disorder 42874686 F41.1 Does wellNot suicidal or homicidal, declines any referralsO n buspirone 5mg po bid Vertigo 790681917 R42 See case from 04/07/2020 ; Vertigo from getting a CT scan, started on the meclizine0 04/08/2020: Dr Pride ENT: Is to get an audiogram and VNG, c/o tinnitius S/P CT Sinuses 04/04/2020 S/p VNG 04/30/2020 On diazepam, states that she takes this very rarelyOn meclizineT akes it as needed Does see ENT Dr Pride now as needed Vitamin D deficiency 347 82778 E55.9 Low back pain 731078558 M54.50 MRI L Spine 11/09/2022 Dr Vega 11/15/2022 Skin lesion 12680577 L98 .9 Has been on dapsone, given by Dr Lawson Migraine 98822271 G43.90 9 On sumatripta n 25mg as needed given by Dr Moody Chronic sinusitis 798207 [address] sinus: 04/20/[address] Howard on her own Dr Howard 07/06/2023 to get surgery Excess mai niculus of abdomen 2030295015 101 E65 Has had pannus since she has lost a weight, has noted a rash likely erin none today, refer to plastic surgery Screening mammography 24 854927 Z12.31 Pain of bi lateral hands 8454626689 9501527 M79.[address] Vega 04/27/2023 [id number] Carmelina fontenot MD [facility] Internal Med [place] [address] [place] [address] 10/16/2023 08:57:46 10/16/2023 09:47:23 Excess panniculus of abdomen 9722895189 101 E65 Has had pannus since she [...] back pain Swelling o f clavicular region 0166252094 R22.30 Get an Xray Chest [id number] Carmelina fontenot MD [facility] Internal Med [place] [address] [place] [address] 01/22/2024 11:10:02 01/22/2024 12:10:56 Excess panniculus of abdomen 2645582186 101 E65 Has had pannus since she [...] plastic surgery Swelling o f clavicular region 7015588557 R22.30 Get an Xray Chest Xr chest 10/16/2023 Xr chest 11/17/2023 Screening - NAD 90408301 3 Z13.9 C-scope: 02/06/19: Dr Jazmin dimas [...] understand ing of the above Essential hypertension 03204539 I10 On spironolac tone 50mg dailyOn losartan 100mg dailyOn diltiazem CD 120mg dailyget labs See [facility] Dr Yang last OV 04/04/2023 , f/u in 6 months Stress test 12/08/2021 : Neg Hyperlipidemia 86890501 E78.5 On pravastati n 20mg dailyNot on fenofibrat e 48mg daily Diet and exerciseGe t labs Does see Dr Cardoso 12/20/2021 , next 06/20/2022 Type 2 jossie betes mellitus without complication 877229160 E11.9 Type 2 diabetes mellitus without complicati onOn metformin ER 500mg bidNot on ozempicOn mounjaro 10mg weeklySeen by Dr Cardoso Needs to see eye MD and has an apt with Dr Ting Maher seen Dr Adair podiatry, and was told had toe nail fungusIs to now get diabetic shoes Asthma 753084906 J45.90 9 03/23/2021 : CT chest11/03: CT chest On albuterolO n albuterol HHNOn advairOn ipratropiu mNot on budesonide On flonaseOn loratidine On singulairO n spiriva Not on symbicort On spirivaOn O2 Has seen the pulmonary MD Dr Maxwell Rheumatoid arthritis [address] Nancy Ruiz in past Dr Jitendra Zaragoza leflunamid e given by Dr Ham 01/03/2024 On hydroxychl oroquine given by Dr Ham 12/28/2023 On CelebrexOn Simponi AriaOn prednisone given by Dr Hart tramadol, given by Dr Ham Dry eyes 581865689 H04.1 23 On restasis, does well on this Hypothyroidism 20575888 E03.9 US thyroid 11/22/18US thyroid 08/04/2020 On unithyroid 88mcgs daily Urinary incontinence 165 446311 R32 On oxybutynin ER 10mg daily, Sienna Pena 03/01/2021 : Dr Mi, does well, notify if any symptoms Eruption 251289949 R21 On triamcinol one Does well Pneumonia 919189870 J18. 9 S/p COVID 19 pneumonia, seen by Dr Sommers [place], multiple hospitaliz ationsNow sees Dr Maxwell Hyperprolactinemia 66238 2004 E22.1 04/08/2020 : Dr Pride ENT: Is to get an audiogram and VNG, as per ENT diagnosed with prolactino ma, will d/w endocrine Seen by Dr Cardoso Osteoarthritis 903936735 M19.90 Dr Vega: L shoulder rotater cuff, knee pain, Bilateral hip pain Hypoproteinemia 7353896 E88.[address] Moody Immunodefi ciency disorder 313948800 D84.9 09/14/2020 : IgG defeciency : Resubmitte d for IVIG and f.u in 4 months Since then has had sinus infections and was to see ENT and also to get CPAP doneDr Moody Gastroesop hageal reflux disease without esophagitis 436018632 K21.9 On omeprazole 07/01/2021 : EGD: Dr Hernandez states 02/14/2022 that she does not need this n Generalize d anxiety disorder 67239256 F41.1 Does wellNot suicidal or homicidal, declines any referralsO n buspirone 5mg po bid Vertigo 128224697 R42 See case from 04/07/2020 ; Vertigo [...] Howard ENT 12/07/2023 Vitamin D deficiency 347 74128 E55.9 Low back pain 566943771 M54.50 MRI L Spine 11/09/2022 Dr Vega 11/15/2022 Skin lesion 48748461 L98 .9 Has been on dapsone, given by Dr Lawson Migraine 06482997 G43.90 9 On sumatripta n 25mg as needed given by Dr Moody Chronic sinusitis 004218 [address] sinus: 04/20/[address] Howard on her own Dr Howard 07/06/2023 to get surgery Screening mammography 24 332596 Z12.31 Pain of bi lateral hands 1378551173 2091631 M79.[address] Vega 04/27/2023 [id number] Carmelina fontenot MD [facility] Internal Med [place] [address] [place] [address] 05/29/2024 14:26:51 05/29/2024 15:37:12 Screening - NAD 386001532 Z13.9 C-scope: 02/06/19: Dr Jazmin dimas next [...] the above Excess mai niculus of abdomen 8421414437 101 E65 Has had pannus since she [...] OV 05/03/2024 Swelling o f clavicular region 8155947408 R22.30 Get an Xray Chest Xr chest 10/16/2023 Xr chest 11/17/2023 Essential hypertension 39144766 I10 On spironolac tone 50mg dailyOn losartan 100mg dailyOn diltiazem CD 120mg dailyget labs See [facility] Dr Yang last OV 04/04/2023 , f/u in 6 months Stress test 12/08/2021 : Neg Hyperlipidemia 53863771 E78.5 On pravastati n 20mg dailyNot on fenofibrat e 48mg daily Diet and exerciseGe t labs Does see Dr Cardoso 12/20/2021 , next 06/20/2022 Type 2 jossie betes mellitus without complication 949303610 E11.9 Type 2 diabetes mellitus without complicati onOn metformin ER 500mg bidNot on ozempicOn mounjaro 10mg weeklySeen by Dr Cardoso Needs to see eye MD and has an apt with Dr Ting Maher seen Dr Adair podiatry, and was told had toe nail fungusIs to now get diabetic shoes Asthma 646775481 J45.90 9 03/23/2021 : CT chest11/03: CT chest On albuterolO n albuterol HHNOn advairOn ipratropiu mNot on budesonide On flonaseOn loratidine On singulairO n spiriva Not on symbicort On spirivaOn O2 Has seen the pulmonary MD Dr Maxwell Rheumatoid arthritis [address] Nancy Ruiz in past Dr Jitendra Zaragoza leflunamid e given by Dr Ham 01/03/2024 On hydroxychl oroquine given by Dr Ham 12/28/2023 On CelebrexOn Simponi AriaOn prednisone given by Dr Hart tramadol, given by Dr Ham Dry eyes 831917088 H04.1 23 On restasis, does well on this Hypothyroidism 18945097 E03.9 US thyroid 11/22/18US thyroid 08/04/2020 On unithyroid 88mcgs daily Urinary incontinence 165 940125 R32 On oxybutynin ER 10mg daily, Sienna Pena 03/01/2021 : Dr Mi, does well, notify if any symptoms Eruption 504508363 R21 On triamcinol one Does well Pneumonia 769771418 J18. 9 S/p COVID 19 pneumonia, seen by Dr Sommers [place], multiple hospitaliz ationsNow sees Dr Maxwell Hyperprolactinemia 74140 2004 E22.1 04/08/2020 : Dr Pride ENT: Is to get an audiogram and VNG, as per ENT diagnosed with prolactino ma, will d/w endocrine Seen by Dr Cardoso,refer red 05/29/2024 Osteoarthritis [address] M19.90 [address] Vega: L shoulder rotater cuff, knee pain, Bilateral hip pain Hypoproteinemia 8916621 E88.[address] Moody Immunodefi ciency disorder 278115391 D84.9 09/14/2020 : IgG defeciency : Resubmitte d for IVIG and f.u in 4 months Since then has had sinus infections and was to see ENT and also to get CPAP Juan Moody Gastroesop hageal reflux disease without esophagitis 181302413 K21.9 On omeprazole 07/01/2021 : EGD: Dr Hernandez states 02/14/2022 that she does not need this n Generalize d anxiety disorder 08530077 F41.1 Does wellNot suicidal or homicidal, declines any referralsO n buspirone 5mg po bid Vertigo 124492052 R42 See case from 04/07/2020 ; Vertigo [...] [facility] 12/07/2023 Vitamin D deficiency 347 64875 E55.9 Low back pain 126401224 M54.50 MRI L Spine 11/09/2022 Dr Vega 11/15/2022 Skin lesion 16637504 L98 .9 Has been on dapsone, given by Dr Lawson Migraine 50337401 G43.90 9 On sumatripta n 25mg as needed given by Dr Moody Chronic sinusitis 353068 [address] sinus: 04/20/[address] Howard on her own Dr Howard 07/06/2023 to get surgery Screening mammography 24 329610 Z12.31 Pain of bi lateral hands 8187004875 3780833 M79.[address] Vega 04/27/2023 Screening for osteoporosis 259422960 Z13.820 Screening for malignant neoplasm of colon 948659357 Z12.11 [id number] Carmelina fontenot MD [facility] Donna orellana [address] [facility] [place] [address] 07/15/2024 09:06:08 07/15/2024 09:45:48 Screening - NAD 249066003 Z13.9 C-scope: 02/06/19: Dr Jazmin dimas next [...] the above Excess mai niculus of abdomen 3675846497 101 E65 Has had pannus since she [...] Dr Nichols Swelling o f clavicular region 6023932386 R22.30 Get an Xray Chest Xr chest 10/16/2023 Xr chest 11/17/2023 Essential hypertension 97383339 I10 On spironolac tone 50mg dailyOn losartan 100mg dailyOn diltiazem CD 120mg dailyget labs See [facility] Dr Yang last OV 04/04/2023 , f/u in 6 months Stress test 12/08/2021 : Neg Hyperlipidemia 71100114 E78.5 On pravastati n 20mg dailyNot on fenofibrat e 48mg daily Diet and exerciseGe t labs Does see Dr Cardoso 12/20/2021 , next 06/20/2022 Type 2 jossie betes mellitus without complication 038548389 E11.9 Type 2 diabetes mellitus without complicati onOn metformin ER 500mg bidNot on ozempicOn mounjaro 10mg weeklySeen by Dr Cardoso Needs to see eye MD and has an apt with Dr Ting Maher seen Dr Adair podiatry, and was told had toe nail fungusIs to now get diabetic shoes Asthma 678559649 J45.90 9 03/23/2021 : CT chest11/03: CT chest On albuterolO n albuterol HHNOn advairOn ipratropiu mNot on budesonide On flonaseOn loratidine On singulairO n spiriva Not on symbicort On spirivaOn O2 Has seen the pulmonary MD Dr Maxwell Rheumatoid arthritis [address] Nancy Ruiz in past Dr Jitendra Zaragoza leflunamid e given by Dr Ham 01/03/2024 On hydroxychl oroquine given by Dr Ham 12/28/2023 On CelebrexOn Simponi AriaOn prednisone given by Dr Hart tramadol, given by Dr Jitendra Ham 05/31/2024 Dry eyes 158295274 H04.1 23 On restasis, does well on this Hypothyroidism 06511920 E03.9 US thyroid 11/22/18US thyroid 08/04/2020 On unithyroid 88mcgs daily Urinary incontinence 165 067203 R32 On oxybutynin ER 10mg daily, Sienna Pena 03/01/2021 : Dr Mi, does well, notify if any symptoms Eruption 011413957 R21 On triamcinol one Does well Pneumonia 234969206 J18. 9 S/p COVID 19 pneumonia, seen by Dr Sommers [place] Maxwell Hyperprolactinemia 06871 2004 E22.1 04/08/2020 : Dr Pride ENT: Is to get an audiogram and VNG, as per ENT diagnosed with prolactino ma, will d/w endocrine Seen by Dr Cardoso,refer red 05/29/2024 Dr Cardoso 07/09/2024 [address] Vega: L shoulder rotater cuff, knee pain, Bilateral hip pain Hypoproteinemia 0081743 E88.[address] Moody Immunodefi ciency disorder 687426939 D84.9 09/14/2020 : IgG defeciency : Resubmitte d for IVIG and f.u in 4 months Since then has had sinus infections and was to see ENT and also to get CPAP Juan Moody Gastroesop hageal reflux disease without esophagitis 836614785 K21.9 On omeprazole 07/01/2021 : EGD: Dr Hernandez states 02/14/2022 that she does not need this n Generalize d anxiety disorder 12691380 F41.1 Does wellNot suicidal or homicidal, declines any referralsO n buspirone 5mg po bid Vertigo 252274819 R42 See case from 04/07/2020 ; Vertigo [...] [facility] 12/07/2023 Vitamin D deficiency 347 68287 E55.9 Low back pain 773697556 M54.50 MRI L Spine 11/09/2022 Dr Vega 11/15/2022 Skin lesion 42675077 L98 .9 Has been on dapsone, given by Dr Lawson Migraine 74088732 G43.90 9 On sumatripta n 25mg as needed given by Dr Moody Chronic sinusitis 567387 [address] sinus: 04/20/[address] Howard on her own Dr Howard 07/06/2023 to get surgery Screening mammography 24 028496 Z12.31 Pain of bi lateral hands 0577742767 1813153 M79.[address] Vega 04/27/2023 Screening for osteoporosis 051908634 Z13.820 Screening for malignant neoplasm of colon 546198240 Z12.11 Pain of right breast 153 0098283 N64.4 Get US/mammogr am R breast Right side d chest pain 067581701 R07.89 Addendum: 07/15/2024 :Xrays negative, case sentIs on celebrex, take this as needed, could be muscle sprain, get US/mammogr am breast, may need CT chest if not better [id number] Carmelina fontenot MD [facility] [address] [place] [address] 09/16/2024 09:38:28 09/16/2024 10:58:16 Screening - NAD 718618802 Z13.9 C-scope: 02/06/19: Dr Wu n next in 5 years, ordered see apt [...] her chart Excess mai niculus of abdomen 2315486549 101 E65 Has had pannus since she [...] Dr Nichols Swelling o f clavicular region 0184055994 R22.30 Get an Xray Chest Xr chest 10/16/2023 Xr chest 11/17/2023 Essential hypertension 09511113 I10 On spironolac tone 50mg dailyOn losartan 100mg dailyOn diltiazem CD 120mg dailyget labs See [facility] Dr Yang last OV 04/04/2023 , f/u in 6 months Stress test 12/08/2021 : Neg Hyperlipidemia 82671681 E78.5 On pravastati n 20mg dailyNot on fenofibrat e 48mg daily Diet and exerciseGe t labs Does see Dr Cardoso 12/20/2021 , next 06/20/2022 Type 2 jossie betes mellitus without complication 860854589 E11.9 Type 2 diabetes mellitus without complicati [...] fungusIs to now get diabetic shoes Asthma 522699098 J45.90 9 03/23/2021 : CT chest11/03: CT chest On albuterolO n albuterol HHNOn advairOn ipratropiu mNot on budesonide On flonaseOn loratidine On singulairO n spiriva Not on symbicort On spirivaOn O2 Has seen the pulmonary MD Dr Maxwell Rheumatoid arthritis [address] Nancy Ruiz in past Dr Jitendra Zaragoza leflunamid e given by Dr Ham 01/03/2024 On hydroxychl oroquine given by Dr Ham 12/28/2023 On CelebrexOn Simponi AriaOn prednisone given by Dr Hart tramadol Dr Ham 05/31/2024 Dry eyes 891505072 H04.1 23 On restasis, does well on this Hypothyroidism 22638722 E03.9 US thyroid 11/22/18US thyroid 08/04/2020 On unithyroid 75mcgs daily, not 88mcgsHas seen Dr Cardoso Urinary incontinence 165 915195 R32 On oxybutynin ER 10mg daily, Sienna Pena 03/01/2021 : Dr Mi, does well, notify if any symptoms Eruption 012056637 R21 On triamcinol one Does well Pneumonia 848655318 J18. 9 S/p COVID 19 pneumonia, [facility] Hyperprolactinemia 30112 2004 E22.1 04/08/2020 : Dr Pride ENT: Is to get an audiogram and VNG, as per ENT diagnosed with prolactino ma, will d/w endocrine Seen by Dr Cardoso,refer red 05/29/2024 Dr Cardoso 07/09/2024 [address] Vega: L shoulder rotater cuff, knee pain, Bilateral hip pain Hypoproteinemia 3759504 E88.[address] Moody Immunodefi ciency disorder 024426426 D84.9 09/14/2020 : IgG defeciency : Resubmitte d for IVIG and f.u in 4 months Since then has had sinus infections and was to see ENT and also to get CPAP Juan Moody Gastroesop hageal reflux disease without esophagitis 504088724 K21.9 On omeprazole 07/01/2021 : EGD: Dr Hernandez states 02/14/2022 that she does not need this n Generalize d anxiety disorder 86585654 F41.1 Does wellNot suicidal or homicidal, declines any referralsN ot on buspirone 5mg po bid Vertigo 513240244 R42 See case from 04/07/2020 ; Vertigo [...] more antibiotic rinses Vitamin D deficiency 347 13223 E55.9 Low back pain 450781491 M54.50 MRI L Spine 11/09/2022 Dr Vega 11/15/2022 Skin lesion 94471064 L98 .9 Has been on dapsone, given by Dr Lawson Migraine 66301748 G43.90 9 On sumatripta n 25mg as needed given by Dr Moody Chronic sinusitis 179350 [address] sinus: 04/20/[address] Howard on her own Dr Howard 07/06/2023 to get surgeryDr Jenae Alfonso 09/03/2024 , now only saline rinses, and f/u in 6 months Pain of bi lateral hands 7158243452 9065019 M79.[address] Vega 04/27/2023 Screening for osteoporosis 108143259 Z13.820 Screening for malignant neoplasm of colon 864156992 Z12.11 Right side d chest pain 445455275 R07.89 Addendum: 07/15/2024 :Xrays negative, case sentIs on celebrex, take this as needed, could be muscle sprain, get US/mammogr am breast, may need CT chest if not better OV 09/16/2024 :Resolved [id number] Carmelina fontenot MD [facility] Hernandez orellana [address] [facility] [address] [place] [address] 02/10/2025 09:29:30 02/10/2025 10:02:29 Screening - NAD 703798925 Z13.9 C-scope: 02/06/19: Dr Jazmin dimas next [...] of Ubrelvy Excess mai niculus of abdomen 1554822561 101 E65 Has had pannus since she [...] does well Swelling o f clavicular region 4513265817 R22.30 Get an Xray Chest Xr chest 10/16/2023 Xr chest 11/17/2023 Essential hypertension 40609679 I10 On spironolac tone 50mg dailyOn losartan 100mg dailyOn diltiazem CD 120mg dailyget labs See [facility] Dr Yang last OV 04/04/2023 , f/u in 6 months Stress test 12/08/2021 : Neg [facility] Dr Yang 12/03/2024 , f/u in 6 months Hyperlipidemia 10134748 E78.5 On pravastati n 20mg dailyNot on fenofibrat e 48mg daily Diet and exerciseGe t labs Does see Dr Cardoso Type 2 jossie betes mellitus without complication 919386197 E11.9 Type 2 diabetes mellitus without complicati [...] fungusIs to now get diabetic shoes Asthma 952700497 J45.90 9 03/23/2021 : CT chest11/03: CT chest On albuterolO n albuterol HHNOn advairOn ipratropiu mNot on budesonide On flonaseOn loratidine On singulairO n spiriva Not on symbicort On spirivaOn O2 Has seen the pulmonary MD Dr Maxwell Rheumatoid arthritis [address] Nancy Ruiz in past Dr Jitendra Zaragoza leflunamid e given by Dr Ham 01/03/2024 On hydroxychl oroquine given by Dr Ham 12/28/2023 On CelebrexOn Simponi AriaOn prednisone given by Dr Hart tramadol Dr Ham 05/31/2024 Dry eyes 622309936 H04.1 23 On restasis, does well on this Hypothyroidism 27529030 E03.9 US thyroid 11/22/18US thyroid 08/04/2020 On unithyroid 75mcgs daily, not 88mcgsHas seen Dr Cardoso Urinary incontinence 165 561860 R32 On oxybutynin ER 10mg daily, Sienna Pena 03/01/2021 : Dr Mi, does well, notify if any symptoms Eruption 438419285 R21 On triamcinol one Does well Pneumonia 040999326 J18. 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 09/14/2020 : IgG defeciency : Resubmitte d for IVIG and f.u in 4 months Since then has had sinus infections and was to see ENT and also to get CPAP lennoxDr Fransisco Gastroesop hageal reflux disease without esophagitis 522572366 K21.9 On omeprazole 07/01/2021 : EGD: Dr Hernandez states 02/14/2022 that she does not need this n Generalize d anxiety disorder 06892946 F41.1 Does wellNot suicidal or homicidal, declines any referralsN ot on buspirone 5mg po bid Vertigo 702923610 R42 See case from 04/07/2020 ; Vertigo [...] more antibiotic rinses Vitamin D deficiency 347 91157 E55.9 Low back pain 677860034 M54.50 MRI L Spine 11/09/2022 Dr Vega 11/15/2022 Skin lesion 73943555 L98 .9 Has been on dapsone, given by Dr Lawson Migraine 04992745 G43.90 9 On sumatripta n 25mg as needed given by Dr Edmondson get on Ubrelvy, all side effects explained to her, she wants to first try the samples and she will come to the office tomorrow 02/11/2025 Chronic sinusitis 673466 [address] sinus: 04/20/[address] Howard on her own Dr Howard 07/06/2023 to get surgeryDr Jenae Alfonso 09/03/2024 , now only saline rinses, and f/u in 6 months Pain of bi lateral hands 1223137253 7401532 M79.[address] Vega 04/27/2023 Screening for osteoporosis 333108967 Z13.820 Screening for malignant neoplasm of colon 761836271 Z12.11 Right side d chest pain 984919499 R07.89 Addendum: 07/15/2024 :Xrays negative, case sentIs on celebrex, take this as needed, could be muscle sprain, get US/mammogr am breast, may need CT chest if not better OV 09/16/2024 :Resolved [id number] Carmelina fontenot MD [facility] [address] [place] [address] 06/16/2025 09:47:15 06/16/2025 11:12:17 Screening - NAD 767801276 Z13.9 C-scope: 02/06/19: Dr Wu n next in 5 years, ordered see apt request on 05/29/2024 Mammogram: 10/27/18: NegMammogr am: 08/12/2020 : NegMammogr am: 08/04/2022 : NegMammogr am: 07/29/2024 : Neg DEXA: 08/04/2022 : NormalDEXA : 12/17/2024 : Normal PAP: Dr Rm S/p Dr [...] the above Excess mai niculus of abdomen 4173405798 101 E65 Has had pannus since she [...] does well Swelling o f clavicular region 0860892916 R22.30 Xr chest 10/16/2023 Xr chest 11/17/2023 CT Chest 02/20/2025 Essential hypertension 00491467 I10 On spironolac tone 50mg dailyOn losartan 100mg dailyOn diltiazem CD 120mg dailyget labs See [facility] Dr Yang last OV 04/04/2023 , f/u in 6 months Stress test 12/08/2021 : Neg [facility] Dr Yang 12/03/2024 , f/u in 6 months Hyperlipidemia 72854391 E78.5 On pravastati n 20mg dailyNot on fenofibrat e 48mg daily Diet and exerciseGe t labs Does see Dr Cardoso Type 2 jossie betes mellitus without complication 334075033 E11.9 Type 2 diabetes mellitus without complicati [...] fungusIs to now get diabetic shoes Asthma 087462569 J45.90 9 03/23/2021 : CT chest11/03: CT chest On albuterolO n albuterol HHNOn advairOn ipratropiu mNot on budesonide On flonaseOn loratidine On singulairO n spiriva Not on symbicort On spirivaOn O2 Has seen the pulmonary MD Dr Maxwell Rheumatoid arthritis [address] Nancy Ruiz in past Dr Jitendra Zaragoza leflunamid e given by Dr Ham 01/03/2024 On hydroxychl oroquine given by Dr Ham 12/28/2023 On CelebrexOn Simponi AriaOn prednisone given by Dr Hart tramadol Dr Ham 05/31/2024 Dry eyes 218519712 H04.1 23 On restasis, does well on this Hypothyroidism 68703683 E03.9 US thyroid 11/22/18US thyroid 08/04/2020 On unithyroid 75mcgs daily, not 88mcgsHas seen Dr Cardoso Urinary incontinence 165 941646 R32 On oxybutynin ER 10mg daily, Sienna Pena 03/01/2021 : Dr Mi, does well, notify if any symptoms Eruption 013906363 R21 On triamcinol one Does well Pneumonia 013272168 J18. 9 S/p COVID 19 pneumonia, seen by Dr Painter FAN, [facility] sees Dr Maxwell Hyperprolactinemia 97786 2004 E22.1 04/08/2020 : Dr Pride ENT: Is to get an audiogram and VNG, as per ENT diagnosed with prolactino ma, will d/w endocrine Seen by Dr Cardoso,refer red 05/29/2024 Dr Cardoso 07/09/[address] Vega: L shoulder rotater cuff, knee pain, Bilateral hip pain Hypoproteinemia 7058289 E88.[address] Moody Immunodefi ciency disorder 459920786 D84.9 09/14/2020 : IgG defeciency : Resubmitte d for IVIG and f.u in 4 months Since then has had sinus infections and was to see ENT and also to get CPAP Juan Moody Gastroesop hageal reflux disease without esophagitis 296554107 K21.9 On omeprazole 07/01/2021 : EGD: Dr Hernandez states 02/14/2022 that she does not need this n Generalize d anxiety disorder 56083903 F41.1 Does wellNot suicidal or homicidal, declines any referralsN ot on buspirone 5mg po bid Vertigo 054676147 R42 See case from 04/07/2020 ; Vertigo [...] more antibiotic rinses Vitamin D deficiency 347 49120 E55.9 Low back pain 261268720 M54.50 MRI L Spine 11/09/2022 Dr Vega 11/15/2022 Skin lesion 05236623 L98 .9 Has been on dapsone, given by Dr Lawson Migraine 09229108 G43.90 9 On sumatripta n 25mg as needed given by Dr Edmondson get on Ubrelvy, all side effects explained to her, she wants to first try the samples and she will come to the office tomorrow 02/11/2025 Chronic sinusitis 475891 [address] sinus: 04/20/[address] Howard on her own Dr Howard 07/06/2023 to get surgeryDr Jenae Alfonso 09/03/2024 , now only saline rinses, and f/u in 6 months Pain of bi lateral hands 0491236768 8136384 M79.[address] Vega 04/27/2023 Screening for osteoporosis 562583376 Z13.820 Screening for malignant neoplasm of colon 158081762 Z12.11 Right side d chest pain 664134559 R07.89 Addendum: 07/15/2024 :Xrays negative, case sentIs on celebrex, take this as needed, could be muscle sprain, get US/mammogr am breast, may need CT chest if not better OV 09/16/2024 :Resolved Screening mammography 24 376287 Z12.31 62786135 Oral herpe s simplex infection 080940856 B00.2 356582 On valacylovi r as needed Hypercortisolism 9657[address] CardosoIs to get mifepristo ne Cyst of kidney 617008094 N28.[address] Cardoso now referred to Dr Restrepo and is to get an US of the kidney on 07/03/2025 Health Concerns Section Related Observation LastModified by Organization Detai ls LastModified Time None Recorded Concern Status LastModified by Organization Details LastModified Time None Recorded Advance Directives Directive N: Payers Insurance Date Sequence Insurance Name Policy Number Policy Diop Covered Member ID Diop Member ID Guarantor Name 06/20/2025 1 [facility] Moises Partida Manav [id number] Karen Em 07/11/2025 2 [place] Karen Em [id number] Karen Em 07/11/2025 1 [facility] [id number] Karen Em [id number] Karen Em Notes Date Note Type Note Provider Name and Address Organization Details Recorded Time 05/29/2024 text/html 12/17/18:Here to establish carePast Hx:HTNHLDAsthmaHypot hyroidismReviewed social family and surgical historyShanthony is doing well today, and did see [...] has not done the labsShanthony has seen ENT and Dr Moody and [...] was recently seen in the ER at [facility] for bronchitis and d/c without any abx, then she called Dr Maxwell who gave her the abx, doing well todayShe did do the labs, she is here with her OV 05/04/2022:Here for her routine aptShe is doing well at this time, was seen in the ER at [place] and treated with steroids and levaquin, c/o [...] is s/p sinus surgery Carmelina Solis MD [address] [place] [address], [place] [address], [place], [address], [facility] [employer] 05/29/2024 17:23:28 07/15/2024 text/html 12/17/18:Here to establish [...] was recently seen in the ER at [facility] for bronchitis and d/c without any abx, then she called Dr Maxwell who gave her the abx, doing well todayShe did do the labs, she is here with her OV 05/04/2022:Here for her routine aptShe is doing well at this time, was seen in the ER at [place] and treated with steroids and levaquin, c/o [...] acute or remote trauma Carmelina Solis MD [address] [place] [address], [facility] [address], [place], [address], [facility] [employer] 07/15/2024 13:56:47 09/16/2024 text/html 12/17/18:Here to establish carePast Hx:HTNHLDAsthmaHypot hyroidismReviewed social family and surgical historyShe is doing well today, and did see Dr CarodsoHere to discuss all of the above OV [...] was recently seen in the ER at [facility] for bronchitis and d/c without any abx, then she called Dr Maxwell who gave her the abx, doing well todayShe did do the labs, she is here with her OV 05/04/2022:Here for her routine aptShe is doing well at this time, was seen in the ER at [place] and treated with steroids and levaquin, c/o [...] do the labs Carmelina Solis MD [address] [facility], [place], [address], [place] [facility] [employer] 09/16/2024 19:17:25 02/10/2025 text/html 12/17/18:Here to establish [...] has not done the labsShe has seen ELLIOTT and Dr Moody and [...] OV 05/24/2021:Here for her f/u aptShe does Rosendohe did do the labs on 05/05/2021he has seen Dr Cardoso, and Dr Vega and Dr Pyle is to see Dr Ham and also Dr Moody OV 11/17/2021:Here for her post hosp aptShe was admitted for pneumonia and is now on IV antibioticsShe is here with her OV 02/14/2022:Here for her routine aptShe is doing well, was recently seen in the ER at [facility] for bronchitis and d/c without any abx, then she called Dr Maxwell who gave her the abx, doing well todayShe did do the labs, she is here with her OV 05/04/2022:Here for her routine aptShe is doing well at this time, was seen in the ER at [place] and treated with steroids and levaquin, c/o [...] state that she has seen Dr Ham's [employer], as well as Dr Moody, she also would like to get on another medication for her migraines as the sumatriptan takes 24 hours to 'kick in' Carmelina Solis MD [address] [facility], [place], [address], [facility] [employer] [facility] 02/10/2025 10:17:22 06/16/2025 text/html 12/17/18:Here to establish carePast Hx:HTNHLDAsthmaHypot hyroidismReviewed [...] was recently seen in the ER at [facility] for bronchitis and d/c without any abx, then she called Dr Maxwell who gave her the abx, doing well todayShe did do the labs, she is here with her OV 05/04/2022:Here for her routine aptShe is doing well at this time, was seen in the ER at [place] and treated with steroids and levaquin, c/o [...] state that she has seen Dr Ham's [employer], as well as Dr Moody, she also would like to get on another medication for her migraines as the sumatriptan takes 24 hours to 'kick in' OV 06/16/2025: Here for her f/u apt she is doing well today, she does see Dr Cardoso and now has been told that she has Kassi and is waiting for her mifepristone to be approved by her insurance Carmelina Solis MD [address] [place] [address], [address], [place], [address], [place] [facility] 06/16/2025 13:02:45 OBGyn Episode No OBEpisode recorded.
--- OUTSIDE RECORDS SUMMARY | 2025-08-14 02:23 | XMS_ITS | Patient Health Record ---
Author Organization [facility] Address [address] [address] Care Team Providers Care Waste Disposal Leakage Tester Name Role Phone Cordelia Cardoso Primary Care [...] tab(s) orally; Duration: 30 day(s) 06/10/2024 Active D3 50 MCG 1 CAP(S) ORALLY ONCE A DAY; Duration: 30 DAY(S) *Please review and pick correct strength-formula tion from [employer] options. If intended option is not shown, discontinue and re-order from Quick Search* 06/10/2024 Active busPIRone HCl 5 MG 1 tab(s) orally 2 times a day; Duration: 30 day(s) 06/10/2024 Active Leflunomide 20 MG 1 tab(s) orally once a day; Duration: 30 day(s) 06/10/2024 Active Omeprazole 40 MG 1 cap(s) orally once a day; Duration: 30 day(s) 06/10/2024 Active Pravastatin Sodium 20 MG 1 tab(s) orally once a day; Duration: 30 day(s) 06/10/2024 Active Hydroxychloroquine Sulfate 200 MG 1 tab(s) orally once a day; Duration: 30 day(s) twice daily 06/10/2024 Active Estradiol 0.05 MG/24HR 1 PATCH transdermally 2 times a week; Duration: 90 days 08/26/2024 Active Arnuity Ellipta FUROATE 50 MCG DIRECTED INHALED EVERY 24 HOURS *Please review and pick correct strength-formula tion from [employer] options. If intended option is not shown, discontinue and re-order from Quick Search* 06/10/2024 Active Liothyronine Sodium 5 MCG 1 tab(s) orally once a day; Duration: 90 days 08/26/2024 Active Fluticasone-Salmeterol 500 MCG-50 MCG 1 INH INHALED 2 TIMES A DAY; Duration: 30 DAY(S) *Please review and pick correct strength-formula tion from [employer] options. If intended option is not shown, discontinue and re-order from Quick Search* 06/10/2024 Active Vitamin E 180 MG 1 CAP(S) ORALLY ONCE A DAY *Please review and pick correct strength-formula tion from [employer] options. If intended option is not shown, discontinue and re-order from Quick Search* Active Mounjaro 12.5 MG/0.5ML as directed subcutaneously once a week Active Ondansetron HCl 4 MG 1 tab(s) orally every 8 hours twice daily if needed after infusions for IGG 06/10/2024 Active Unithroid 75 MCG (0.075 MG) ; Duration: 90 DAYS *Please review and pick correct strength-formula tion from [employer] options. If intended option is not shown, discontinue and re-order from Quick Search* Active predniSONE 2.5 MG 1 tab(s) orally once a day; Duration: 30 day(s) only for flares 06/10/2024 Active Gabapentin 100 MG 1 cap(s) orally 3 times a day Active Mupirocin 2 % 1 shelbie applied topically 3 times a day; Duration: 90 days 06/10/2024 Active Celecoxib 200 MG 1 cap(s) orally once a day; Duration: 30 day(s) two caps per day 06/10/2024 Active DILTIAZEM (EQV-CARDIZEM CD) 120 MG/24 HOURS 1 CAP(S) ORALLY ONCE A DAY; Duration: 30 DAY(S) *Please review for potential replacement for e-prescription and drug interaction check* 06/10/2024 Active Mounjaro 15 MG/0.5ML as directed Subcutaneous weekly; Duration: 90 days 11/25/2024 Active Gamunex-C 10% DIRECTED INTRAVENOUSLY EVERY 4 WEEKS *Please review and pick correct strength-formula tion from [employer] options. If intended option is not shown, discontinue and re-order from Quick Search* Active SUMAtriptan Succinate 25 MG 1 tab(s) orally once 06/10/2024 Active Albuterol Sulfate HFA 108 (90 Base) MCG/ACT 2 puff(s) inhaled every 6 hours 06/10/2024 Active Triamcinolone Acetonide 0.1% 1 SHELBIE ORALLY 2 TIMES A DAY (AFTER MEALS) *Please review and pick correct strength-formula tion from [employer] options. If intended option is not shown, discontinue and re-order from Quick Search* Active Cyanocobalamin 1000 MCG/ML inject 1000 mcg subcutaneously once weekly; Duration: 90 days 06/10/2024 Active Liothyronine Sodium 5 MCG 1 to 2 tablet on an empty stomach Orally once daily in afternoon; Duration: 90 days 11/25/2024 Active DAPSONE TOPICAL 5% 1 SHELBIE APPLIED TOPICALLY 2 TIMES A DAY *Please review for potential replacement for e-prescription and drug interaction check* Active Tavaborole 5 % 1 shelbie applied topically once a day; Duration: 48 week(s) 06/10/2024 Active 24 HOUR ALLERGY RELIEF 10 MG 1 TAB(S) ORALLY ONCE A DAY 10 mg daily *Please review for potential replacement for e-prescription and drug interaction check* 06/10/2024 Active Losartan Potassium 100 MG 1 tab(s) orally once a day; Duration: 30 day(s) 06/10/2024 Active metFORMIN HCl ER (OSM) 500 MG 1 tab(s) orally once a day; Duration: 30 day(s) twice daily 06/10/2024 Active dexAMETHasone 1 MG 1 tablet at 10pm Orally once; Duration: 1 days 11/27/2024 Active Problems Problem Type SNOMED Code ICD Code Onset Dates Problem Status W/U Status Risk Notes Problem Vitamin D deficiency (66563848) Vitamin D deficiency, unspecified (E55.9) Active confirmed Problem Hyperglycemia due to type 2 diabetes mellitus (279590148268204) Type 2 diabetes mellitus with hyperglycemia (E11.65) Active confirmed Problem Hyperlipidemia (19682950) Hyperlipidemia, unspecified (E78.5) Active confirmed Problem Hypothyroidism (39545830) Hypothyroidism, unspecified (E03.9) Active confirmed Problem Obesity (251618219) Obesity, unspecified (E66.9) Active confirmed Problem Menopause (207099919) Menopausal and female climacteric states (N95.1) Active confirmed Vital Signs Heart Rate 80 /min 11/25/2024 SPO2: 96% Blood pressure diastolic 80 mm Hg 11/25/2024 SPO 2: 96% Height 63 in 11/25/2024 SPO2: 96% Blood pressure systolic 154 mm Hg 11/25/2024 SPO2 : 96% Weight 202 lbs 11/25/2024 SPO2: 96% BMI 35.78 kg/m2 11/25/2024 SPO2: 96% Encounters Encounter Location Date Provider Diagnosis [facility] Cordelia Powerspan [address] [place] [address] 08/26/2024 Cordelia Cardoso Type 2 diabetes mellitus with hyperglycemia E11.65 ; Vitamin D deficiency, unspecified E55.9 ; Hyperlipidemia, unspecified E78.5 ; Hypothyroidism, unspecified E03.9 ; Menopausal and female climacteric states N95.1 ; Obesity, unspecified E66.9 and Dietary counseling and surveillance Z71.3 [facility] Cordelia [address] [place] [address] 11/25/2024 Cordelia Cardoso Type 2 diabetes mellitus with hyperglycemia E11.65 ; Hyperlipidemia, unspecified E78.5 ; Hypothyroidism, unspecified E03.9 ; Obesity, unspecified E66.9 and Dietary counseling and surveillance Z71.[address] [address] 09/14/2024 Provider Migration Hypothyroidism, unspecified E03.9 and Menopausal and female climacteric states N95.1 [facility] [address] [place] [address] 11/24/2024 Cordelia Cardoso [facility] Cordelia Powerspan [address] [place] [address] 11/27/2024 [facility] Encounter Date Diagnosis (ICD Code) Assessment Notes Treatment Notes Treatment Clinical Notes Section Notes 08/26/2024 Vitamin D deficiency, unspecified (ICD-10 - E55.9) 08/26/2024 Type 2 diabetes mellitus with hyperglycemia (ICD-10 - E11.65) 11/25/2024 Type 2 diabetes mellitus with hyperglycemia (ICD-10 - E11.65) 08/26/2024 Hyperlipidemia, unspecified (ICD-10 - E78.5) 11/25/2024 Hyperlipidemia, unspecified (ICD-10 - E78.5) 08/26/2024 Hypothyroidism, unspecified (ICD-10 - E03.9) 11/25/2024 Hypothyroidism, unspecified (ICD-10 - E03.9) 09/14/2024 Hypothyroidism, unspecified (ICD-10 - E03.9) 08/26/2024 Menopausal and female climacteric states (ICD-10 - N95.1) 11/25/2024 Obesity, unspecified (ICD-10 - E66.9) 09/14/2024 Menopausal and female climacteric states (ICD-10 - N95.1) 08/26/2024 Obesity, unspecified (ICD-10 - E66.9) 11/25/2024 Dietary counseling and surveillance (ICD-10 - Z71.3) 08/26/2024 Dietary counseling and surveillance (ICD-10 - Z71.3) 08/26/2024 Other Assessment and Plan: 1. Hypothyroidism- [...] procedures, referring and communicating with other health district manager primary care sales, documenting clinical information in the electronic or [...] the possibility of port placement with a head inspector and center marker, evaluating the risks and benefits.Explore the option [...] procedures, referring and communicating with other health district manager primary care sales, documenting clinical information in the electronic or [...] Insured Coverage Start Date Coverage End Date [facility] [address] [address] [place] [address] [phone] [id number] Karen Em Self - patient is the insured S Medicare Part B [place] Claims Department [address] [address] [place] [address] [id number] Karen Em Self - patient is the insured Medical (General) History Medical History History ICD Code type 2 DM hypothyroidism IGG deficiency rheumatoid arthritis dyslipidemia vitamin D deficiency
--- OUTSIDE RECORDS SUMMARY | 2025-08-14 02:24 | XMS_ITS | Clinical Summary ---
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
[2025-08-14] MEDS: SODIUM CHLORIDE 0.9% IV 1,000 ML 999 ML IV CONT (02:35)
[2025-08-14] MEDS: METOCLOPRAMIDE HCL INJ 10 MG/2 ML VIAL IV PUSH (02:35)
[2025-08-14] MEDS: ACETAMINOPHEN 500 MG TABLET 1000 MG PO (02:36)
--- NOTE | 2025-08-14 02:56 | ED.HA ---
HPI - Headache General Chief Complaint: Headache Stated Complaint: migraine, nausea x 2-3 days Time Seen by Provider: 08/14/25 01:43 Source: patient Mode of arrival: ambulatory Limitations: no limitations History of Present Illness HPI Narrative: Patient is a 60-year-old female who presents the ED with report of a migraine headache. Patient reports having headache for the past 5 days. She undergoes IgG infusions every 3 months and has for several years. States she typically experiences a migraine headache after the infusion. States this feels similar to the previous headaches she has had. She is prescribed Ubrelvy and tried taking this without improvement. Pain is mostly frontal at this time. Reports photophobia, nausea, vomiting. Denies dizziness, fevers, neck pain, vision changes. Related Data Home Medications ?Medication ?Instructions ?Recorded ?Confirmed ?Last Taken ?Type losartan 50 mg tablet 100 mg PO DAILY 10/21/19 08/06/25 10/07/24 History montelukast 10 mg tablet 10 mg PO DAILY 10/21/19 08/06/25 10/07/24 History loratadine 10 mg tablet 10 mg PO DAILY Congestion 07/28/20 08/06/25 10/07/24 History celecoxib 200 mg capsule 200 mg PO BID 01/22/21 08/06/25 10/07/24 History leflunomide 20 mg tablet 20 mg PO DAILY 01/22/21 08/06/25 10/07/24 History spironolactone 50 mg tablet 50 mg PO DAILY 01/22/21 08/06/25 10/07/24 History ondansetron HCl 4 mg tablet 4 mg PO BID PRN Nausea 04/21/21 08/06/25 06/30/21 History metformin 500 mg tablet,extended 500 mg PO BID 10/19/21 08/06/25 10/07/24 History release 24 hr diltiazem HCl 120 mg 120 mg PO DAILY 12/01/21 08/06/25 10/07/24 History capsule,extended release 24 hr cholecalciferol (vitamin D3) 50 50 mcg PO DAILY 01/11/22 08/06/25 10/07/24 History mcg (2,000 unit) capsule hydroxychloroquine 200 mg tablet 400 mg PO DAILY 01/11/22 08/06/25 10/07/24 History (Plaquenil) oxybutynin chloride 5 mg 10 mg PO QAM 10/05/22 08/06/25 10/07/24 History tablet,extended release 24 hr (Ditropan XL) buspirone 5 mg tablet 5 mg PO BID 06/28/23 08/06/25 10/07/24 History golimumab 50 mg/0.5 mL See Rx Instructions .Route .COMPLEX 01/16/24 08/06/25 Unknown History subcutaneous pen injector (Simponi) levothyroxine 75 mcg tablet 75 mcg PO DAILY 01/16/24 08/06/25 10/07/24 History (Unithroid) pravastatin 20 mg tablet 20 mg PO DAILY 01/16/24 08/06/25 10/07/24 History tiotropium bromide 2.5 2 puff inhalation BID 01/16/24 08/06/25 10/07/24 History mcg/actuation mist for inhalation (Spiriva Respimat) triamcinolone acetonide 0.1 % 1 applic topical BID 01/16/24 08/06/25 10/07/24 History topical cream gabapentin 100 mg capsule 1 - 3 mg PO DAILY PRN Pain 09/18/24 08/06/25 10/07/24 History liothyronine 5 mcg tablet 5 mcg PO HS 09/18/24 08/06/25 10/07/24 History omeprazole 20 mg capsule,delayed 40 mg PO DAILY Acid Reflux 09/18/24 08/06/25 10/07/24 History release immune globulin(hum),capr(IgG) 10 ml IV .every 3 months 06/12/25 08/06/25 Unknown History % intravenous solution tirzepatide 15 mg/0.5 mL 15 mg subcut ONCE 06/12/25 08/06/25 Unknown History subcutaneous pen injector (Mounjaro) valacyclovir 1 gram tablet 1,000 mg PO DAILY PRN 06/12/25 08/06/25 Unknown History mifepristone 300 mg tablet (Korlym) 300 mg PO DAILY 07/02/25 08/06/25 Unknown History Allergies Allergy/AdvReac Type Severity Reaction Status Date / Time amoxicillin Allergy Severe Hives Verified 08/13/25 20:29 fentanyl Allergy Severe Difficulty Verified 08/13/25 20:29 Breathing peach Allergy Severe Itching Verified 08/13/25 20:29 Sulfa (Sulfonamide Allergy Severe Hives Verified 08/13/25 20:29 Antibiotics) amitriptyline AdvReac Mild Unknown Verified 08/13/25 20:29 Review of Systems Review of Systems: All systems reviewed & are unremarkable except as noted in HPI. All systems reviewed & are unremarkable except as noted in HPI and below [facility] Past Medical History Medical History Lucernemines's disease (~2024) Colon cancer screening Abdominal apron (04/09/24) removed Screening mammogram, encounter for Osteoarthritis Edema Vertigo Dry eyes Herpes Urinary incontinence Pituitary tumor BPPV (benign paroxysmal positional vertigo) GERD (gastroesophageal reflux disease) Staphylococcus aureus pneumonia (~12/2019) Necrotizing pneumonia (~01/2021) MSSA Aspergillus Hemoptysis LISA (acute kidney injury) (~12/2020) Acute respiratory failure with hypoxia Pneumonia due to COVID-19 virus (~12/2020) IgG deficiency Morbid obesity Rheumatoid arthritis YOON (obstructive sleep apnea) With CPAP of 7 Asthma with COPD PFTs 05/10/2020 SVT (supraventricular tachycardia) Prediabetes Hypothyroid Vitamin D deficiency Surgical History Surgical History History of bronchoscopy (~12/2020) History of removal of cyst cysts removal from right side of face History of sinus surgery (07/07/23) History of tubal ligation History of eye surgery muscle repair in eye History of hand surgery cyst removed from right hand History of robot-assisted laparoscopic hysterectomy 10/17/19 RA TLH w/BSO for PMB History of arthroscopy of knee (01/02/19) History of dilation and curettage 04/20/17 hscope d&c--PMB--weakly proliferative endometrium 09/19/19 hscope d&c--PMB--dysmenorrhea--benign History of incision and drainage 2013--abscess of left upper thigh History of (~1996) Hx of cholecystectomy H/O lateral meniscus repair of right knee History of tonsillectomy Family History Family History Father Thyroid cancer Lung cancer Carcinoma of colon Hypertension Myocardial infarct Mother Brain cancer Colitis Depression Lung cancer COPD (chronic obstructive pulmonary disease) Diabetes mellitus Hypertension CAD (coronary artery disease) Social History Social History Social History: Patient lives at home with her of 27 years, Rodolfo. Her 29-year-old son and daughter in law also live with them. 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 Primary care provider: Dr. Dirk Solis Code status: Full code Surrogate decision maker: Smoking packs per day: 1 Smoking cigarettes per day: 20.0 Years smoked: 10 Smoking pack-years: 10.00 Smoking status: Former smoker Tobacco type: cigarettes Second hand tobacco smoke exposure: Yes Alcohol intake: never Alcohol use details: rarely Substance use: never Substance use type: does not use Current Housing: Decline to Answer Concerned About Future Housing: Decline to Answer Difficulty Paying Gas/Electric Bills: Decline to Answer Difficulty Paying for Meds: Decline to Answer Currently Unemployed: Decline to Answer Education: Decline to Answer Difficulty w/ Childcare or Family Care: Decline to Answer Living arrangements: with family Additional living arrangements comments: Occupation/Education: unemployed Additional occupation/education comments: disability Gender identity (if verbalized by the patient): Female Sexual Orientation (if Verbalized by the Patient): Straight or Heterosexual Spiritual care concerns: No Agree to blood products: Yes Exam Narrative: GENERAL: Well appearing, obese with BMI of 35.8, non-toxic, in no acute distress. HEAD: Normocephalic, atraumatic. EYES: PERRL/EOMI, conjunctiva claer. No nystagmus NECK: No meningeal signs RESPIRATORY: Airway patent, respirations nonlabored. Clear to auscultation bilaterally, no rales, rhonchi, wheezing. CARDIOVASCULAR: Regular rate and rhythm without murmurs, rubs, or gallops. MUSCULOSKELETAL: Moves all extremities. No gross deformities. SKIN: Warm, dry, normal color. NEURO: A&O X3. Speech clear. Cranial nerves II-XII grossly intact. Steady gait. No ataxic movements. No focal deficits PSYCHIATRIC: Appropriate mood and affect. Normal interaction. Course Vital Signs Vital signs: Vital Signs Temperature 98.8 F 08/13/25 20:32 Pulse Rate 86 08/13/25 20:32 Respiratory Rate 21 H 08/13/25 20:32 Blood Pressure 152/88 H 08/13/25 20:32 Pulse Oximetry 99 08/13/25 20:32 Oxygen Delivery Room Air 08/13/25 20:32 Temperature 98.8 F 08/13/25 20:32 Pulse Rate 86 08/13/25 20:32 Respiratory Rate 21 H 08/13/25 20:32 Blood Pressure 159/83 H 08/14/25 02:32 Pulse Oximetry 97 08/14/25 02:32 Oxygen Delivery Room Air 08/13/25 20:32 MDM - Headache MDM Narrative Medical decision making narrative: Patient's headache was not sudden in onset or maximal in severity. There are no focal neurological deficits on exam. Subarachnoid hemorrhage is felt to be unlikely at this time. There is no history of fever and neck is supple on evaluation without meningeal signs. Meningitis is felt to be unlikely. No traumatic history or signs of trauma on evaluation. No vision changes or ocular signs of acute glaucoma. CT brain w/o acute findings. Patient feeling much better after migraine cocktail. Patient's headache is felt to be benign cephalgia and reasonable for further outpatient management. Advised patient to follow with PCP for further evaluation. Given reasons to return. Medical Records Attestation: I reviewed the patient's medical records. Imaging Data Attestation: I personally reviewed and interpreted this imaging study as follows: Radiologist's impression: STAT RAD CT brain: No acute intracranial hemorrhage. No midline shift or mass effect. Territorial sheffield-white matter differentiation is maintained throughout. Age-related cerebral volume loss. Periventricular and subcortical white matter hypoattenuation, consistent with chronic microangiopathy. Discharge Plan Discharge Clinical Impression: Migraine Qualifiers: Migraine type: unspecified Status migrainosus presence: without status migrainosus Intractability: not intractable Qualified Code(s): G43.909 - Migraine, unspecified, not intractable, without status migrainosus Patient Disposition: Home Condition: Stable Instructions: Antibiotic Form, Migraine Headache (ED), Acute Headache (ED) Additional Instructions: Continue Tylenol and ibuprofen, your home Ubrelvy as needed for pain. Utilize Zofran as needed for further nausea. Get plenty of rest. Stay well hydrated. Recommend low light/ low stimulus environment, limiting screen time. Follow-up with your primary care doctor for further evaluation if needed. Return to the ED if you experience worsening or severe pain, severe dizziness, vision changes, unable to keep down food or drink, or any other symptoms of concern. Patient Language: Kyrgyz Prescriptions: No Action oxybutynin chloride [Ditropan XL] 5 mg tablet extended release 24hr 10 mg PO QAM pravastatin 20 mg tablet 20 mg PO DAILY levothyroxine [Unithroid] 75 mcg tablet 75 mcg PO DAILY Spiriva Respimat 2.5 mcg/actuation mist 2 puff inhalation BID triamcinolone acetonide 0.1 % cream 1 applic topical BID Simponi 50 mg/0.5 mL pen injector See Rx Instructions .ROUTE .COMPLEX Rx Instructions: 50 mg subcutaneously every other month fluticasone propion-salmeterol 250-50 mcg/dose blister with device 1 inh inhalation BID Qty: 60 6RF mifepristone [Korlym] 300 mg tablet 300 mg PO DAILY mupirocin [Centany] 2 % ointment 1 applic topical BID Qty: 44 3RF Rx Instructions: intranasal, also melt 1 inch in each irrigation bottle budesonide 0.25 mg/2 mL suspension for nebulization 0.25 mg irrigation BID Qty: 60 3RF Rx Instructions: 2ml in each irrigation bottle, irrigate with two bottles daily, include salt packet loratadine 10 mg tablet 10 mg PO DAILY ondansetron HCl 4 mg tablet 4 mg PO BID PRN (Reason: Nausea) diltiazem HCl 120 mg capsule,extended release 24hr 120 mg PO DAILY immune globulin(hum),capr(IgG) 10 % solution IV .every 3 months valacyclovir 1 gram tablet 1,000 mg PO DAILY PRN Mounjaro 15 mg/0.5 mL pen injector 15 mg subcut ONCE celecoxib 200 mg capsule 200 mg PO BID leflunomide 20 mg tablet 20 mg PO DAILY spironolactone 50 mg tablet 50 mg PO DAILY buspirone 5 mg tablet 5 mg PO BID Patient Comments: . metformin 500 mg tablet extended release 24 hr 500 mg PO BID hydroxychloroquine [Plaquenil] 200 mg tablet 400 mg PO DAILY cholecalciferol (vitamin D3) 50 mcg (2,000 unit) Capsule 50 mcg PO DAILY liothyronine 5 mcg Tablet 5 mcg PO HS omeprazole 20 mg capsule,delayed release(DR/EC) 40 mg PO DAILY gabapentin 100 mg capsule 1 - 3 mg PO DAILY PRN (Reason: Pain) losartan 50 mg tablet 100 mg PO DAILY montelukast 10 mg tablet 10 mg PO DAILY albuterol sulfate 90 mcg/actuation HFA aerosol inhaler See Rx Instructions .ROUTE .COMPLEX Qty: 8.5 12RF Dose Instruction: USE 2 INHALATIONS FOUR TIMES A DAY NEEDED FOR SHORTNESS OF BREATH Patient Comments: . Rx Instructions: USE 2 INHALATIONS FOUR TIMES A DAY NEEDED FOR SHORTNESS OF BREATH estradiol 0.01 % (0.1 mg/gram) cream 1 g vaginal 3XW Qty: 3 0RF Follow-up/Referrals: Will,MD Dirk [Primary Care Provider, Unknown]
[2025-08-14] MEDS: dexAMETHasone SOD PHOS INJ 10 MG/ML 1 ML VIAL IV PUSH (03:24)
[2025-08-14] MEDS: KETOROLAC 30 MG/ML VIAL (*BKC) IV PUSH (03:25)
[2025-08-14] MEDS: MAGNESIUM SULF 1 GM/D5W 100 ML 1 GM/100 ML BAG IVPB (03:59)
== END 2025-08-14 05:22 | disposition home or self-care (01) ==
PROVIDERS: Emergency Provider Physician Assistant; PCP Internal Medicine
DX: G43.909 Migraine, unspecified, not intractable, without status migrainosus (principal); E24.9 Cushing's syndrome, unspecified; E03.9 Hypothyroidism, unspecified; E66.01 Morbid (severe) obesity due to excess calories; Z68.35 Body mass index [BMI] 35.0-35.9, adult; E55.9 Vitamin D deficiency, unspecified; J44.9 Chronic obstructive pulmonary disease, unspecified; D80.3 Selective deficiency of immunoglobulin G [IgG] subclasses; R73.03 Prediabetes; M19.90 Unspecified osteoarthritis, unspecified site; K21.9 Gastro-esophageal reflux disease without esophagitis; G47.33 Obstructive sleep apnea (adult) (pediatric); R32 Unspecified urinary incontinence; Z87.01 Personal history of pneumonia (recurrent); Z86.16 Personal history of COVID-19; Z87.891 Personal history of nicotine dependence; Z90.710 Acquired absence of both cervix and uterus; Z90.79 Acquired absence of other genital organ(s); Z90.722 Acquired absence of ovaries, bilateral; Z90.49 Acquired absence of other specified parts of digestive tract; Z79.899 Other long term (current) drug therapy; Z79.85 Long-term (current) use of injectable non-insulin antidiabetic drugs; Z79.84 Long term (current) use of oral hypoglycemic drugs; Z79.69 Long term (current) use of other immunomodulators and immunosuppressants
CPT/HCPCS: 70450; 96361; 96365; 96375; 99284; A9270; J1100; J1200; J1885; J2765; J3475; J7030